=== PATIENT | female | born 1940 | race Caucasian/White ===

== ENCOUNTER 2017-05-27 11:10 | Inpatient (IN) ==
[2017-05-27 11:50] LABS: Basophils % 0.2 %; Eosinophils % 0.4 %; Hematocrit 30.4 % (35.3-44.9); Hemoglobin 9.6 g/dL (11.5-15.4); Immature Granulocytes % 0.7 % (0-4); Lymphocytes # 1.1 K/mcL (0.6-4.6); Lymphocytes % 19.3 %; Mean Corpuscular HGB Conc 31.6 g/dL (31.6-35.5); Mean Corpuscular Hemoglobin 30.5 pg (28.0-33.3); Mean Corpuscular Volume 96.5 fL (83.0-100.0); Mean Platelet Volume 10.2 fL (9.4-12.4); Monocytes # 0.4 K/mcL (0.0-1.3); Monocytes % 7.2 %; Platelet Count 196 K/mcL (140-400); Red Blood Count 3.15 M/mcL (3.82-4.97); Red Cell Distribution Width 15.5 % (11.5-14.5); Segmented Neutrophils % 72.2 %
[2017-05-27 11:59] LABS: INR 1.2; Prothrombin Time 13.1 Seconds (9.4-12.1)
[2017-05-27 12:03] LABS: BUN/Creatinine Ratio 21 (6-26); Blood Urea Nitrogen 17 mg/dL (7-20); Calcium 8.9 mg/dL (8.6-10.8); Carbon Dioxide 30 mEq/L (19-29); Chloride 98 mEq/L (98-109); Glucose 452 mg/dL (70-99); Osmolality,Calculated 299 (280-300); Potassium 4.1 mEq/L (3.5-4.5); Sodium 134 mEq/L (136-145); eGFR For African Americans > 60 (> 60); eGFR For Non-African Americans > 60 (> 60)
[2017-05-27] MEDS ORDERED: Furosemide 20 MG/2 ML VIAL IVP ONE (12:30)
[2017-05-27] MEDS ORDERED: Insulin Regular, Human 100 UNIT/ML SQ ONE (12:30)
[2017-05-27] MEDS ORDERED: Aspirin 81 MG TAB.CHEW PO STA (13:30)
--- NOTE | 2017-05-27 13:33 | Emergency Department Note ---
Disposition Clinical Impression: Dyspnea, Pulmonary edema, Pleural effusion, Hyperglycemia, Elevated troponin Disposition: Admitted As Inpatient Condition: Fair Time of Disposition: 14:11 SOB HPI - General Chief Complaint: ED Shortness of Breath/Dyspnea Stated Complaint: sherry Time Seen by Provider: 05/27/17 11:26 Source: patient, other Limitations: no limitations Nursing Notes Reviewed: Yes Vital Signs Reviewed: Yes - History of Present Illness Patient complains of progressive dyspnea over the past 4-5 weeks. She was seen by her primary care physician in the outpatient setting and found to be hypoxic. Home oxygen was initiated and she was referred to pulmonary for consultation. Patient was a worsening orthopnea as well as exertional dyspnea. Denies any associated chest pain, tightness or discomfort. She has not worsening peripheral edema over the past week. She was seen by wound nurse today and he referred her to the emergency department for aggressive cardiac workup and admission. Denies fevers or chills. No productive cough. No other subjective complaints. Pt Subjective Complaint: shortness of breath Onset (ago): week(s) Context: recent illness Severity: moderate Consistency/Duration: intermittent Improves with: nothing Worsens with: lying flat, exertion Associated symptoms: Denies: chest pain, fever, cough Treatment prior to arrival: none Cough present: No Sputum production: No Sputum Amount: None - Related Data Home Medications Medication Instructions Recorded Confirmed Albuterol Sulfate [Albuterol 2 puff IH Q6H PRN 05/27/17 05/27/17 Inhaler] Budesonide/Formoterol 80/4.5 2 puff IH BID 05/27/17 05/27/17 [Symbicort 80/4.5] Ranitidine HCl [Heartburn Relief] 150 mg PO BID 05/27/17 05/27/17 Allergies Allergy/AdvReac Type Severity Reaction Status Date / Time No Known Allergies Allergy Verified 05/27/17 11:50 All systems ED: reviewed and negative except as stated. Constitutional: Reports: weakness. Denies: fever, chills Cardiovascular: Reports: edema. Denies: chest pain, palpitations Respiratory: Reports: dyspnea. Denies: hemoptysis, sputum production Past Medical History - Past Medical History Attestation: Yes The following information was validated with the patient. 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 - General Limitations: no limitations General appearance: alert - Head Head exam: atraumatic, normocephalic - Eye Eye exam: Present: normal appearance, PERRL - ENT ENT exam: normal exam - Neck Neck exam: Present: normal inspection, full ROM - Chest Chest inspection: Present: normal inspection, symmetric chest wall rise. Absent : tenderness - Respiratory Respiratory exam: Present: other (Breath sounds are diminished in both bases with inspiratory rales heard bilaterally). Absent: normal lung sounds bilaterally - Cardiovascular Cardiovascular exam: Present: regular rate - Abdominal Exam Abdominal exam: Present: soft, Non-Tender - Extremities Exam Extremities exam: Present: pedal edema - Expanded Lower Extremity Exam Ankle exam: Present: swelling Foot/toe exam: Present: swelling - Back Exam Back exam: Present: normal inspection. Absent: CVA tenderness (R), CVA tenderness (L) - Neurological Exam Neurological exam: Present: alert, oriented X3 - Psychiatric Psychiatric exam: Present: normal affect, normal mood - Skin Skin exam: Present: warm, dry Course Course Narrative: Patient presents with a new onset of pulmonary edema to just heart failure as well as new onset of hyperglycemia. She is given IV Lasix along with dose of insulin. Chest x-ray reveals bilateral pulmonary edema and pleural effusions. Moderate peripheral edema. Discussed with Dr. Joe who will admit and Dr. Schultz for cardiology consult Vital Signs Temperature 98.2 F 05/27/17 11:50 Pulse Rate 84 05/27/17 11:50 Respiratory Rate 26 05/27/17 11:50 Blood Pressure 115/70 05/27/17 11:50 O2 Sat by Pulse Oximetry 96 05/27/17 11:50 Temperature 98.2 F 05/27/17 11:50 Pulse Rate 87 05/27/17 14:25 Respiratory Rate 15 05/27/17 14:25 Blood Pressure 118/69 05/27/17 14:25 O2 Sat by Pulse Oximetry 94 05/27/17 14:25 Oxygen Delivery Oxygen Delivery Nasal Cannula Shortness of Breath/Dyspnea - Lab Data Result diagrams: 05/27/17 11:43 05/27/17 11:43 Lab Results 05/27/17 05/27/1717 Range/Units 11:43 11:43 11:43 WBC 5.6 (4.3-11.1) K/mcL RBC 3.15 L (3.82-4.97) M/mcL Hgb 9.6 L (11.5-15.4) g/dL Hct 30.4 L (35.3-44.9) % MCV 96.5 (83.0-100.0) fL MCH 30.5 (28.0-33.3) pg MCHC 31.6 (31.6-35.5) g/dL RDW 15.5 H (11.5-14.5) % Plt Count 196 (140-400) K/mcL MPV 10.2 (9.4-12.4) fL Immature Gran % 0.7 (0-4) % Seg Neutrophils % 72.2 % Lymphocytes % 19.3 % Monocytes % 7.2 % Eosinophils % 0.4 % Basophils % 0.2 % Neutrophils # 4.0 (1.6-8.9) K/mcL Lymphocytes # 1.1 (0.6-4.6) K/mcL Monocytes # 0.4 (0.0-1.3) K/mcL Eosinophils # 0.0 (0.0-0.6) K/mcL Basophils # 0.0 (0.0-0.2) K/mcL PT 13.1 H (9.4-12.1) Seconds INR 1.2 APTT 25.0 L (26.0-36.0) Seconds Sodium 134 L (136-145) mEq/L Potassium 4.1 (3.5-4.5) mEq/L Chloride 98 (98-109) mEq/L Carbon Dioxide 30 H (19-29) mEq/L BUN 17 (7-20) mg/dL Creatinine 0.82 (0.57-1.11) mg/dL Est GFR ( Amer) > 60 (> 60) Est GFR (Non-Af Amer) > 60 (> 60) BUN/Creatinine Ratio 21 (6-26) Glucose 452 H (70-99) mg/dL Calculated Osmolality 299 (280-300) Calcium 8.9 (8.6-10.8) mg/dL Troponin I (0-0.03) ng/mL B-Natriuretic Peptide (0-100) pg/mL 05/27/17 05/27/17 Range/Units 11:43 11:43 WBC (4.3-11.1) K/mcL RBC (3.82-4.97) M/mcL Hgb (11.5-15.4) g/dL Hct (35.3-44.9) % MCV (83.0-100.0) fL MCH (28.0-33.3) pg MCHC (31.6-35.5) g/dL RDW (11.5-14.5) % Plt Count (140-400) K/mcL MPV (9.4-12.4) fL Immature Gran % (0-4) % Seg Neutrophils % % Lymphocytes % % Monocytes % % Eosinophils % % Basophils % % Neutrophils # (1.6-8.9) K/mcL Lymphocytes # (0.6-4.6) K/mcL Monocytes # (0.0-1.3) K/mcL Eosinophils # (0.0-0.6) K/mcL Basophils # (0.0-0.2) K/mcL PT (9.4-12.1) Seconds INR APTT (26.0-36.0) Seconds Sodium (136-145) mEq/L Potassium (3.5-4.5) mEq/L Chloride (98-109) mEq/L Carbon Dioxide (19-29) mEq/L BUN (7-20) mg/dL Creatinine (0.57-1.11) mg/dL Est GFR ( Amer) (> 60) Est GFR (Non-Af Amer) (> 60) BUN/Creatinine Ratio (6-26) Glucose (70-99) mg/dL Calculated Osmolality (280-300) Calcium (8.6-10.8) mg/dL Troponin I 0.11 H* (0-0.03) ng/mL B-Natriuretic Peptide 588 H (0-100) pg/mL - EKG Data EKG attestation: Yes I reviewed and interpreted this EKG. EKG results narrative: Normal sinus rhythm with a rate of 84. Electrical indices within normal limits. Lobe EKG. [place] is normal. Slow R-wave progression across the precordium. No acute ST or T-wave abnormalities noted. Attestation Statement - Attestation Attestation: The high probability of a clinically significant, sudden or life threatening deterioration of the [cardiopulmonary] system(s) required my full and direct attention, intervention and personal management. The aggregate critical care time was [32] minutes. This time is in addition to time spent performing reported procedures but includes the following: [x] Data Review and interpretation [x] Patient assessment and monitoring of vital signs [x] Documentation [x] Medication orders and management
[2017-05-27] MEDS ORDERED: Naloxone 0.4 MG/ML INJ IVP PRN (15:17)
--- NOTE | 2017-05-27 15:31 | Internal Med History&Physical ---
Date of Encounter: 05/27/17 Time of Encounter: 15:31 Assessment and Plan (1) Acute systolic congestive heart failure Current visit: Yes Status: Acute 77/female Admitted for worsening shortness of breath from the pulmonology office. ER preferred this as a COPD is admission. Patient has a raised JVP, pedal edema, S3 positive, and bilateral coarse crepitations. Echocardiogram was done area Estimated ejection fraction 25-30%. She has a moderate mitral regurgitation. Patient was evaluated by Dr. Schultz Patient has acute decompensated systolic congestive heart failure. Plan: Admit as inpatient. Cardiac diet/diabetic diet Cycle troponin. IV diuresis: Lasix 40 mg every 8 hours as per recommendation by Dr. Schultz Strict intake output. BiPAP as needed in the night Aspirin/Lipitor/lisinopril/heparin drip/Lasix as mentioned above. Nothing by mouth from midnight. Possible cardiac catheter tomorrow morning. (2) Pulmonary edema Current visit: Yes Status: Acute Please see above Qualifiers: Chronicity: acute Qualified Code(s): J81.0 - Acute pulmonary edema (3) Pleural effusion Current visit: Yes Status: Acute Patient is a bilateral pleural effusion right more than left. This is likely secondary to the congestive heart failure. (4) Hyperglycemia Current visit: Yes Status: Acute This is a new finding that patient has a random blood sugar of more than 400. This is a diagnostic for diabetes. We will give her low-dose correction insulin. (5) Elevated troponin Current visit: Yes Status: Acute Her troponin is likely secondary to demand ischemia/acute systolic congestive heart failure. Patient is scheduled for cardiac catheter tomorrow. (6) DVT prophylaxis Current visit: Yes Status: Acute Heparin drip Medical decision-making: This patient has a moderate to severe risk of worsening in spite of being on appropriate medication due to the underlying complex medical condition. Internal Medicine - H&P: HPI Chief complaint: Shortness of breath Admitted From: Emergency Dept Plans for Post Hospital Care: Home History of present illness: PCP: Dr. Barbra Juarez Brief past medical history: COPD, hypertension. Patient is not keen to see Drs. History of present medical illness: This patient has a ongoing symptoms of shortness of breath for past 4 weeks. As per the family members, patient cannot lay down flat. Patient has worsening shortness of breath in the past 1 week which is progressively getting complicated to the extent patient cannot walk even 3-5 steps. In view of these worsening symptoms patient's family was concerned and they made appointment with the primary care.patient was evaluated by her primary care doctor and she referred to interstate bus driver for further evaluation of the shortness of breath. Patient went to interstate bus [facility] office this morning as per the recommendation of the primary care provider. At interstate bus [facility] office patient was short of breath to the extent that she was not able to lay down flat. This was the reason interstate bus driver referred patient to emergency room for further management. In the emergency room patient was examined by ER physician. X-ray was done. Basic labs were done. Noted that troponin was elevated. Reason for admission: Possible acute CHF systolic/elevated troponin likely secondary to CHF exacerbation/severe coronary artery disease. Family history: Noncontributory Past Med Surg Social Fam HX - Past Medical History Medical history: arthritis, CHF, COPD, diabetes Psychiatric history: no psych history - Social History Smoking Status: Never smoker Smokeless Tobacco Status: No Alcohol use: none Drug use: none Internal Medicine - H&P: Meds Albuterol Sulfate [Albuterol Inhaler] 2 puff IH Q6H PRN 05/27/17 [History] Budesonide/Formoterol 80/4.5 [Symbicort 80/4.5] 2 puff IH BID 05/27/17 [History ] Ranitidine HCl [Heartburn Relief] 150 mg PO BID 05/27/17 [History] 3 Allergy/AdvReac Type Severity Reaction Status Date / Time No Known Allergies Allergy Verified 05/27/17 11:50 All Systems PM: A 10-system review of systems was performed and is negative for pertinent findings except as documented above in the HPI. - Constitutional Constitutional: no chills, no fever(s), no night sweats - EENT Eyes: no change in vision, no discharge, no pain, no photophobia Ears: no ear discharge, no ear pain, no tinnitus Nose, mouth and throat: no dysphagia, no nasal discharge, no neck pain, no sore throat - Cardiovascular Cardiovascular ROS IM: diaphoresis, dyspnea, lightheadedness, paroxysmal nocturnal dyspnea, no chest pain, no palpitations, no syncope - Respiratory Respiratory: cough, dyspnea, wheezing, snoring, change in phlegm color, no excessive phlegm production - Gastrointestinal Gastrointestinal: no abdominal pain, no diarrhea, no hematemesis, no hematochezia, no melena, no nausea, no vomiting - Genitourinary Genitourinary: no change in urinary stream, no dysuria, no flank pain, no hematuria - Musculoskeletal Musculoskeletal ROS IM: no numbness, no tingling - Integumentary Integumentary IM: no rash, no unusual bruising - Neurological Neurological ROS: no confusion, no convulsions, no focal weakness, no numbness, no tingling, no tremor(s) - Hematologic/Lymphatic Hematologic/Lymphatic: no easy bruising - Constitutional Vitals: Temp Pulse Resp BP Pulse Ox 98.2 F 87 15 118/69 94 05/27/17 11:50 05/27/17 14:25 05/27/17 14:25 05/27/17 14:25 05/27/17 14:25 General appearance: Present: mild distress, A&O X 3, pleasant, answers questions appropriately - Head Head exam: Present: atraumatic, normocephalic - Eye Eye exam: Present: PERRL, conjuntiva pink, sclera anicteric Pupils: Present: PERRL - Neck Neck exam general surgery: Present: supple, trachea midline. Absent: lymphadenopathy - Respiratory Respiratory exam: Present: accessory muscle use, CTAB, rales, wheezes. Absent: rhonchi - Cardiovascular Cardiovascular exam: Present: RRR, +S1, +S2. Absent: diastolic murmur, gallop, rubs, systolic murmur - GI/Abdominal GI/Abdominal exam: Present: normal bowel sounds, soft, no peritoneal signs. Absent: distended, tenderness - Extremities Exam Extremities exam: Present: warm, radial pulses palpable and symmetrical. Absent : calf tenderness, cyanotic, pedal edema - Neurological Exam Neurological exam: Present: CN II-XII intact, oriented X3, no focal deficits. Absent: pronater drift, facial droop, speech deficit - Skin Skin exam: Present: dry, intact Internal Med - H&P Results - Labs CBC & Chem 7: 05/27/17 11:43 05/27/17 11:43
[2017-05-27] MEDS ORDERED: Heparin 25,000 UNIT/500 ML D5W 25,000 UNIT/500 ML MLS IVC SCH (17:45)
[2017-05-27] MEDS ORDERED: D5% in Water 1,000 ML IVC PRN (18:09)
[2017-05-27] MEDS ORDERED: Dextrose Gel 15 GM PO PRN ×2 (18:09)
[2017-05-27] MEDS ORDERED: *HR* Dextrose 50 % in Water (Syg) 50 ML SYRINGE IVP PRN (18:09)
[2017-05-27] MEDS ORDERED: Furosemide 40 MG/4 ML VIAL ONE (20:52)
[2017-05-27] MEDS ORDERED: Furosemide 20 MG/2 ML VIAL IVP SCH (21:00)
[2017-05-27] MEDS: Furosemide 40 MG/4 ML VIAL IVP SCH (21:02)
[2017-05-27 22:19] LABS: Hemoglobin A1C 10.9 %
[2017-05-28] MEDS: traZODone 50 MG TABLET PO PRN (00:59)
[2017-05-28 04:31] LABS: Basophils % 0.4 %; Eosinophils % 0.2 %; Hemoglobin 8.8 g/dL (11.5-15.4); Immature Granulocytes % 0.4 % (0-4); Lymphocytes # 1.2 K/mcL (0.6-4.6); Mean Corpuscular HGB Conc 31.4 g/dL (31.6-35.5); Mean Corpuscular Hemoglobin 30.3 pg (28.0-33.3); Mean Corpuscular Volume 96.6 fL (83.0-100.0); Mean Platelet Volume 10.5 fL (9.4-12.4); Monocytes # 0.4 K/mcL (0.0-1.3); Monocytes % 7.5 %; Neutrophils # 3.6 K/mcL (1.6-8.9); Platelet Count 184 K/mcL (140-400); Red Cell Distribution Width 15.6 % (11.5-14.5); Segmented Neutrophils % 68.5 %
[2017-05-28 04:34] LABS: INR 1.2; Prothrombin Time 13.2 Seconds (9.4-12.1)
[2017-05-28 04:37] LABS: Activated Partial Thrombo Time 21.9 Seconds (26.0-36.0)
[2017-05-28 04:47] LABS: Alanine Aminotransferase 21 Units/L (0-55); Albumin 2.6 g/dL (3.5-5.0); Albumin/Globulin Ratio 0.8 (1.1-2.2); Alkaline Phosphatase 47 Units/L (38-126); Aspartate Amino Transferase 12 Units/L (5-34); BUN/Creatinine Ratio 19 (6-26); Bilirubin,Total 1.7 mg/dL (0.2-1.2); Blood Urea Nitrogen 15 mg/dL (7-20); Calcium 8.3 mg/dL (8.6-10.8); Carbon Dioxide 26 mEq/L (19-29); Chloride 98 mEq/L (98-109); Chol/HDL Ratio 6.8 (0-4.9); Cholesterol 205 mg/dL (< 200); Globulin 3.3 g/dL (2.4-3.5); Glucose 337 mg/dL (70-99); HDL Cholesterol 30 mg/dL (40-59); LDL Cholesterol,Calculated 141 mg/dL (0-99); Magnesium 1.7 mg/dL (1.6-2.6); Osmolality,Calculated 292 (280-300); Phosphorous 3.9 mg/dL (2.3-4.7); Potassium 3.8 mEq/L (3.5-4.5); Sodium 134 mEq/L (136-145); Total Protein 5.9 g/dL (6.0-8.3); Triglycerides 169 mg/dL (< 150); eGFR For African Americans > 60 (> 60); eGFR For Non-African Americans > 60 (> 60)
[2017-05-28] MEDS ORDERED: clonazePAM 0.5 MG TABLET PO ONE (05:47)
[2017-05-28] MEDS: Insulin LISPRO 300 UNITS/3 ML VIAL SQ SCH ×4 (09:05→21:17)
[2017-05-28] MEDS: Furosemide 40 MG/4 ML VIAL IVP SCH ×3 (09:05→23:30)
[2017-05-28] MEDS: Aspirin Enteric Coated 81 MG Tablet PO SCH (09:05)
--- NOTE | 2017-05-28 10:04 | Cardiology Consult Note ---
Date of Encounter: 05/28/17 Time of Encounter: 10:02 Assessment and Plan (1) Acute systolic congestive heart failure Current Visit: Yes Status: Acute Acute decompensated congestive heart failure with evidence of hypervolemia and mild elevation of troponins with a peak of 0.11 adynamic. Echo as above with 30 % ejection fraction moderate severe mitral regurg possibly ischemic in nature with a posterior directed jet. Gentle diuresis at the current time in preparation for a left heart catheter. Risk benefits and alternatives were discussed with the patient and family members and they agreed to proceed. This will depend on when she is able to lay flat as she continues to diuresis. Patient was noted to have a drop in her hemoglobin almost over a gram therefore heparin was stopped overnight. We will obtain a CBC prior to proceeding with a left heart catheter. We will attempt to limit her flat today to evaluate her ability to proceed with the left heart catheter Discussion w patient/family: The assessment and plan as outlined above was discussed with the patient and/or family members who expressed understanding and agreement. All questions were answered. Thank you for involving us in the care of your patient. Please call with any questions. History of Present Illness Consult date: 05/28/17 Requesting physician: Shahzad Joe Consult reason: SOB Chief complaint: SOB History of present illness: Ms. New is a 77 year old female with history of diabetes, obesity, complains of shortness of breath and presented to the [facility]. She states her shortness of breath has been ongoing for the last 4 weeks and progressively worsening. She has complained also of orthopnea, PND no chest pain, presyncope or syncope. An echocardiogram was obtained early during this admission revealing an ejection fraction of 30% with severe mitral regurg. Chest x-ray reveals pulmonary edema with moderate bilateral pleural effusions. Past Med Surg Social Fam HX - Past Medical History Medical history: arthritis, CHF, COPD, diabetes Psychiatric history: no psych history - Social History Smoking Status: Never smoker Smokeless Tobacco Status: No Alcohol use: none Drug use: none Medications and Allergies Albuterol Sulfate [Albuterol Inhaler] 2 puff IH Q6H PRN 05/27/17 [History] Budesonide/Formoterol 80/4.5 [Symbicort 80/4.5] 2 puff IH BID 05/27/17 [History ] Ranitidine HCl [Heartburn Relief] 150 mg PO BID 05/27/17 [History] 3 Allergy/AdvReac Type Severity Reaction Status Date / Time No Known Allergies Allergy Verified 05/27/17 11:50 All Systems Review: A 10-system review of systems was performed and is negative for pertinent findings except as documented above in the HPI. Physical Examination Vital Signs, Last 4 Hours Temp Pulse Resp BP Pulse Ox 05/28/17 08:07 98 F 88 16 135/72 90 General: Conversant, No Apparent Distress HEENT: Atraumatic, Normocephaly, Mucus Membranes Moist Neck: No JVD (Elevated JVD), Normal carotid pulses Cardiac: Reg Rate and Rhythm, Normal S1 and S2, No Murmur Lungs: Normal Breath Sounds, Other (Bibasilar crackles, decreased air entry bilaterally) Neuro: Alert and responsive, No focal deficits noted Abdomen: Soft, Non-Tender Skin: No rashes noted on visualized skin Musculoskeletal: No Chest Wall Tenderness Extremities: No Clubbing, No Cyanosis, No Edema, Normal Pulses, Other ( Bilateral lower extremity edema) Results 05/28/17 03:50 05/28/17 03:50 Lab Results 05/27/17 05/27/17 05/28/17 16:28 21:48 00:44 WBC Hgb Hct Plt Count INR APTT 37.2 H Sodium Potassium Chloride Carbon Dioxide BUN Creatinine Glucose Calcium Magnesium Total Bilirubin AST ALT Alkaline Phosphatase Troponin I 0.12 H* 0.11 H* B-Natriuretic Peptide 05/28/17 05/28/17 05/28/17 03:50 03:50 03:50 WBC 5.3 Hgb 8.8 L Hct 28.0 L Plt Count 184 INR 1.2 APTT 21.9 L Sodium Potassium Chloride Carbon Dioxide BUN Creatinine Glucose Calcium Magnesium Total Bilirubin AST ALT Alkaline Phosphatase Troponin I 0.11 H* B-Natriuretic Peptide 05/28/17 05/28/17 03:50 03:50 WBC Hgb Hct Plt Count INR APTT Sodium 134 L Potassium 3.8 Chloride 98 Carbon Dioxide 26 BUN 15 Creatinine 0.77 Glucose 337 H Calcium 8.3 L Magnesium 1.7 Total Bilirubin 1.7 H AST 12 ALT 21 Alkaline Phosphatase 47 Troponin I B-Natriuretic Peptide 662 H Consult Discharge Plan - Plan Referrals: Barbra Juarez MD [Primary Care Provider] - Prince Wolf MD [Family Provider] -
[2017-05-28 10:41] LABS: Hematocrit 28.5 % (35.3-44.9); Mean Corpuscular HGB Conc 31.6 g/dL (31.6-35.5); Mean Corpuscular Hemoglobin 30.4 pg (28.0-33.3); Mean Corpuscular Volume 96.3 fL (83.0-100.0); Mean Platelet Volume 10.2 fL (9.4-12.4); Platelet Count 192 K/mcL (140-400); Red Blood Count 2.96 M/mcL (3.82-4.97); Red Cell Distribution Width 15.6 % (11.5-14.5)
[2017-05-28] MEDS ORDERED: *HR* LORazepam 1 MG TABLET PO PRN (12:11)
[2017-05-28] MEDS ORDERED: Metoprolol XL (24 HR) Succ 25 MG TAB.ER.24H PO SCH (13:45)
--- NOTE | 2017-05-28 13:47 | Event Note ---
Date of Encounter: 05/28/17 Time of Encounter: 13:45 - Cardiology Event Note Pt extremely anxious, states unable to lie flat. Will give Ativan PRN for anxiety, continue diuresis, NPO after midnight for possible LHC tomorrow. Also now in A-Fib RVR on telemetry. Obtain 12 lead EKG. Start heparin gtt. Start PO BB Toprol XL 25mg daily. HR 110-120s. Will address custodial anticoagulation prior to discharge.
[2017-05-28] MEDS ORDERED: *HR* Heparin 5,000 UNIT/ML VIAL IVP PRN ×2 (13:48)
[2017-05-28] MEDS ORDERED: *HR* Heparin 5,000 UNIT/ML VIAL IVP ONE (13:48)
[2017-05-28] MEDS ORDERED: Amiodarone Premix 150 MG/100 ML BAG IVPB ONE (13:57)
[2017-05-28] MEDS ORDERED: Amiodarone Premix 360 MG/200 ML BAG IVC ONE (13:57)
--- NOTE | 2017-05-28 15:55 | Internal Med Progress Note ---
Date of Encounter: 05/28/17 Time of Encounter: 10:00 - Assessment and plan (1) Acute on chronic respiratory failure with hypoxia Current Visit: Yes Status: Acute Assessment and plan: Due to acute congestive heart failure. Continue O2 supplementation. Wean FiO2 as tolerated. (2) Acute systolic congestive heart failure Current Visit: Yes Status: Acute Assessment and plan: Patient with acute congestive heart failure with bilateral pleural effusions. Continue IV Lasix. Patient has had good urine output but remains dyspneic and hypoxic. We will continue to monitor input and output. Monitor daily weights. Cardiology following. Plan for left heart catheterization when patient is able to lie down flat. High risk for complications (3) Diabetes mellitus type 2 in obese Current Visit: Yes Status: Chronic Assessment and plan: A1c is 10.9%. This is a new diagnosis for the patient. We will place her on insulin while she is in the hospital. Diabetic diet when patient is able to eat. Monitor blood sugars closely. We will adjust insulin regimen according to her response (4) Pleural effusion Current Visit: Yes Status: Acute Assessment and plan: Patient with bilateral pleural effusion. Most likely due to heart failure. This would also be contributing to her respiratory failure. We will continue IV diuresis. (5) Elevated troponin Current Visit: Yes Status: Acute Assessment and plan: Stable troponin elevation. Plan for left heart catheterization later today. (6) Hyperlipidemia Current Visit: Yes Status: Chronic Assessment and plan: Uncontrolled. Patient has elevated LDL and low HDL. Has been started on Lipitor. Will continue. Qualifiers: Hyperlipidemia type: mixed hyperlipidemia Qualified Code(s): E78.2 - Mixed hyperlipidemia - Subjective Interval history: Patient is awake and alert. Lying in bed. Appears comfortable. Shortness of breath is improving. She denies any chest pain at this time. Has been scheduled for cardiac catheterization later today but patient has to be able to lie down flat to undergo this procedure. - Constitutional Vitals: Temp Pulse Resp BP Pulse Ox 97.6 F 121 14 117/103 88 05/28/17 11:58 05/28/17 11:58 05/28/17 11:58 05/28/17 11:58 05/28/17 11:58 General appearance: Present: cooperative, mild distress, A&O X 3, pleasant, obese, answers questions appropriately - Neck Neck exam general surgery: Present: supple, trachea midline. Absent: lymphadenopathy - Respiratory Respiratory exam: Present: decreased breath sounds (At both bases), prolonged expiratory phase. Absent: accessory muscle use, rales, rhonchi, wheezes - Cardiovascular Cardiovascular exam: Present: RRR, +S1, +S2. Absent: diastolic murmur, gallop, rubs, systolic murmur - GI/Abdominal GI/Abdominal exam: Present: normal bowel sounds, soft, no peritoneal signs. Absent: distended, tenderness - Extremities Exam Extremities exam: Present: warm, radial pulses palpable and symmetrical. Absent : calf tenderness, cyanotic, pedal edema - Neurological Exam Neurological exam: Present: alert, CN II-XII intact, oriented X3, no focal deficits. Absent: facial droop, speech deficit Internal Medicine: Result - Labs CBC & Chem 7: 05/28/17 10:26 05/28/17 03:50 Labs: Short CBC 05/28/17 05/28/17 Range/Units 03:50 10:26 WBC 5.3 5.1 (4.3-11.1) K/mcL Hgb 8.8 L 9.0 L (11.5-15.4) g/dL Hct 28.0 L 28.5 L (35.3-44.9) % Plt Count 184 192 (140-400) K/mcL Neutrophils # 3.6 (1.6-8.9) K/mcL BMP 05/28/17 03:50 Sodium 134 L Potassium 3.8 Chloride 98 Carbon Dioxide 26 BUN 15 Creatinine 0.77 Glucose 337 H Calcium 8.3 L Cardiac Enzymes 05/27/17 05/27/17 05/28/17 Range/Units 16:28 21:48 03:50 Troponin I 0.12 H* 0.11 H* 0.11 H* (0-0.03) ng/mL Liver Function 05/28/17 Range/Units 03:50 Total Bilirubin 1.7 H (0.2-1.2) mg/dL AST 12 (5-34) Units/L ALT 21 (0-55) Units/L Alkaline Phosphatase 47 (38-126) Units/L Albumin 2.6 L (3.5-5.0) g/dL - ABG Interpretation ABG results: PT/INR, D-dimer PT 13.2 Seconds (9.4-12.1) H 05/28/17 03:50 - Impressions Impressions Echocardiogram 05/27/17 15:23 Impressions: LVEF 30%. Mildly dilated left ventricle. Severe global left ventricular systolic dysfunction. Severe left ventricular diastolic dysfunction. Normal right ventricular structure and function. Severely dilated left atrium. Severe mitral regurgitation. Mild tricuspid regurgitation. Mild pulmonary hypertension. Left Ventricular Wall Motion: Rest Echo Findings The apex, apical inferior, mid inferior, basal inferior, apical anterior, mid anterior, basal anterior, apical septal, mid inferior septal, basal inferior septal, apical lateral, mid anterior lateral, basal anterior lateral, mid anterior septal, mid inferior lateral, basal anterior septal and basal inferior lateral savage were hypokinetic. Findings: Study Quality * Technically adequate exam. ECG Findings * Normal sinus rhythm. Left Ventricle * LVEF 30%. * Mildly dilated left ventricle. * Severe global left ventricular systolic dysfunction. * Severe left ventricular diastolic dysfunction. Right Ventricle * Normal right ventricular structure and function. Left Atrium * Severely dilated left atrium. Right Atrium * Mildly dilated right atrium. Interatrial Septum * Interatrial septum not well evaluated. Aortic Valve * Trileaflet aortic valve. * Mildly calcified aortic valve leaflets. * No aortic regurgitation. * No aortic stenosis. Mitral Valve * Mild mitral annular calcification * Mildly thickened mitral valve leaflets. * Severe mitral regurgitation. * No mitral stenosis. Tricuspid Valve * Normal tricuspid valve structure. * Mild tricuspid regurgitation. * Mild pulmonary hypertension. Pulmonic Valve * Pulmonic valve not well visualized. Aorta * Normally sized aortic root. Pericardium * The pericardium appears normal. IVC * Normal IVC dimensions and inspiratory collapse. Pulmonary Artery * Normal visualized portions of the main pulmonary artery. Chest X-Ray 05/28/17 14:26 IMPRESSION: Lungs are slightly better expanded than on the prior study, however there is probably no substantial change in bilateral pleural effusions and edema. Basilar opacities likely a combination of fluid and atelectasis although superimposed airspace disease not excluded. D/ / Richard Jaimes / Richard Jaimes Interpreting Provider: Richard Jaimes Consult Discharge Plan - Plan Referrals: Barbra Juarez MD [Primary Care Provider] - Prince Wolf MD [Family Provider] -
[2017-05-28] MEDS: Heparin 25,000 UNIT/500 ML D5W 25,000 UNIT/500 ML MLS IVC SCH (16:08)
[2017-05-28 17:00] LABS: Hematocrit 30.8 % (35.3-44.9); Hemoglobin 9.6 g/dL (11.5-15.4); Mean Corpuscular HGB Conc 31.2 g/dL (31.6-35.5); Mean Corpuscular Hemoglobin 30.7 pg (28.0-33.3); Mean Corpuscular Volume 98.4 fL (83.0-100.0); Mean Platelet Volume 10.2 fL (9.4-12.4); Platelet Count 195 K/mcL (140-400); Red Blood Count 3.13 M/mcL (3.82-4.97); Red Cell Distribution Width 15.8 % (11.5-14.5)
[2017-05-28 17:01] LABS: Hemoglobin 9.5 g/dL (11.5-15.4)
[2017-05-28] MEDS ORDERED: Amiodarone Premix 360 MG/200 ML BAG IVC SCH (20:00)
[2017-05-28 20:39] LABS: ABG Base Excess 9 mEq/L (-2 to 3); ABG HCO3 34 mEq/L (21-27); ABG Oxygen Saturation 90 % (95-98); ABG PCO2 47 mmHg (35-45); ABG PH 7.47 pH Units (7.32-7.45); ABG PO2 56 mmHg (85-104); ABG TCO2 35 mEq/L (20-26)
[2017-05-28] MEDS: *HR* LORazepam 1 MG TABLET PO PRN (20:48)
[2017-05-28] MEDS: Budesonide/Formoterol 80/4.5 MDI IH SCH (21:21)
[2017-05-28] MEDS ORDERED: Acetaminophen 325 MG TABLET PO ONE (23:16)
[2017-05-29] MEDS ORDERED: *HR* LORazepam 2 MG/ML VIAL IVP ONE (01:58)
[2017-05-29 08:01] LABS: Basophils % 0.3 %; Eosinophils # 0.1 K/mcL (0.0-0.6); Eosinophils % 1.1 %; Hematocrit 28.2 % (35.3-44.9); Hemoglobin 8.8 g/dL (11.5-15.4); Immature Granulocytes % 0.4 % (0-4); Lymphocytes # 2.1 K/mcL (0.6-4.6); Lymphocytes % 30.1 %; Mean Corpuscular HGB Conc 31.2 g/dL (31.6-35.5); Mean Corpuscular Hemoglobin 30.4 pg (28.0-33.3); Mean Corpuscular Volume 97.6 fL (83.0-100.0); Mean Platelet Volume 10.1 fL (9.4-12.4); Monocytes # 0.7 K/mcL (0.0-1.3); Monocytes % 9.7 %; Neutrophils # 4.1 K/mcL (1.6-8.9); Platelet Count 197 K/mcL (140-400); Red Blood Count 2.89 M/mcL (3.82-4.97); Red Cell Distribution Width 16.3 % (11.5-14.5); Segmented Neutrophils % 58.4 %
[2017-05-29 08:08] LABS: BUN/Creatinine Ratio 21 (6-26); Blood Urea Nitrogen 22 mg/dL (7-20); Calcium 8.2 mg/dL (8.6-10.8); Carbon Dioxide 28 mEq/L (19-29); Chloride 97 mEq/L (98-109); Glucose 192 mg/dL (70-99); Osmolality,Calculated 287 (280-300); Potassium 3.9 mEq/L (3.5-4.5); Sodium 134 mEq/L (136-145); eGFR For African Americans > 60 (> 60); eGFR For Non-African Americans 51 (> 60)
[2017-05-29] MEDS: Budesonide/Formoterol 80/4.5 MDI IH SCH ×2 (08:11→20:13)
[2017-05-29] MEDS: Aspirin Enteric Coated 81 MG Tablet PO SCH (09:30)
[2017-05-29] MEDS: *HR* LORazepam 1 MG TABLET PO PRN ×3 (09:34→19:57)
[2017-05-29] MEDS: Furosemide 40 MG/4 ML VIAL IVP SCH (09:36)
[2017-05-29] MEDS: Insulin LISPRO 300 UNITS/3 ML VIAL SQ SCH ×4 (09:37→20:17)
--- NOTE | 2017-05-29 10:13 | Event Note ---
Date of Encounter: 05/29/17 Time of Encounter: 10:11 - Cardiology Event Note Pt now back in SR on amio gtt. Discussed with Dr. Elvis Colón--stop amio gtt and start PO 200mg BID. On heparin gtt for anticoagulation, HGB 8.8 today, chronic anemia, continue to monitor H&H. No active signs of bleeding. Warrants LHC for new CMP EF 30%. Pt was able to tolerate lying flat. R/B/A to LHC discussed. Pt agrees to proceed. LHC today. Further recommendations to follow.
[2017-05-29] MEDS: *HR* Amiodarone 200 MG TABLET PO SCH ×2 (10:18→19:58)
[2017-05-29] MEDS: Heparin 25,000 UNIT/500 ML D5W 25,000 UNIT/500 ML MLS IVC SCH (13:06)
[2017-05-29] MEDS ORDERED: *HR* Heparin 10,000 UNIT/10 ML VIAL ONE (14:36)
[2017-05-29] MEDS ORDERED: Nitroglycerin 1,000 MCG/10 ML VIAL IV ONE (14:36)
[2017-05-29] MEDS ORDERED: 0.9 % Sodium Chloride 1,000 ML ONE ×2 (14:36)
[2017-05-29] MEDS ORDERED: Ipratropium/Albuterol Neb 3 ML IH PRN (15:59)
--- NOTE | 2017-05-29 16:00 | Internal Med Progress Note ---
Date of Encounter: 05/29/17 Time of Encounter: 08:40 - Assessment and plan (1) Acute on chronic respiratory failure with hypoxia Current Visit: Yes Status: Acute Assessment and plan: Due to acute congestive heart failure. On Oxymask. At 10 L/m O2 supplementation. Awaiting factors likely include obstructive sleep apnea and COPD. High-risk for complications. (2) Acute systolic congestive heart failure Current Visit: Yes Status: Acute Assessment and plan: Will hold Lasix for now due to decreased urine output overnight. Patient has remained nothing by mouth and has not had any significant oral intake. Monitor renal function closely. BUN and creatinine are starting to rise up. Await cardiology input. Continue O2 supplementation (3) Diabetes mellitus type 2 in obese Current Visit: Yes Status: Chronic Assessment and plan: Blood sugars are much improved. We will continue to monitor blood sugars. Currently nothing by mouth for planned cardiac catheterization today. (4) Pleural effusion Current Visit: Yes Status: Acute (5) Elevated troponin Current Visit: Yes Status: Acute Assessment and plan: Cardiology has evaluated patient and recommended left heart catheterization. We will proceed with procedure this procedure as long as patient is able to lay flat today. (6) Hyperlipidemia Current Visit: Yes Status: Chronic Assessment and plan: Continue atorvastatin Qualifiers: Hyperlipidemia type: mixed hyperlipidemia Qualified Code(s): E78.2 - Mixed hyperlipidemia (7) COPD (chronic obstructive pulmonary disease) Current Visit: Yes Status: Chronic Assessment and plan: Patient with history of underlying COPD. Not in acute exacerbation at this time. We will place patient on bronchodilators as needed. Continue Symbicort. Qualifiers: COPD type: emphysema Emphysema type: panlobular Qualified Code(s): J43.1 - Panlobular emphysema - Subjective Interval history: Patient is lying in bed. Breathing through Oxymask. She appears more comfortable compared to yesterday. Less dyspneic. He denies any chest pain. No nausea or vomiting. No other complaints at this time. Has not made much urine overnight. Swelling in lower extremities has improved. - Constitutional Vitals: Temp Pulse Resp BP Pulse Ox 98.8 F 69 22 107/49 90 05/29/17 12:34 05/29/17 11:04 05/29/17 11:04 05/29/17 11:04 05/29/17 11:04 General appearance: Present: cooperative, mild distress, A&O X 3, pleasant, obese, answers questions appropriately - Neck Neck exam general surgery: Present: supple, trachea midline. Absent: lymphadenopathy - Respiratory Respiratory exam: Present: decreased breath sounds (At both bases with crackles) . Absent: accessory muscle use, rales, rhonchi, wheezes - Cardiovascular Cardiovascular exam: Present: RRR, +S1, +S2. Absent: diastolic murmur, gallop, rubs, systolic murmur - Extremities Exam Extremities exam: Present: pedal edema (Bilateral pitting pedal edema improving) , warm, radial pulses palpable and symmetrical. Absent: calf tenderness, cyanotic - Neurological Exam Neurological exam: Present: CN II-XII intact, oriented X3, no focal deficits. Absent: facial droop, speech deficit Internal Medicine: Result - Labs CBC & Chem 7: 05/29/17 07:48 05/29/17 07:48 Labs: Short CBC 05/28/17 05/28/17 05/29/17 Range/Units 16:28 16:28 07:48 WBC 6.8 7.0 (4.3-11.1) K/mcL Hgb 9.6 L 9.5 L 8.8 L (11.5-15.4) g/dL Hct 30.8 L 30.0 L 28.2 L (35.3-44.9) % Plt Count 195 197 (140-400) K/mcL Neutrophils # 4.1 (1.6-8.9) K/mcL BMP 05/29/17 07:48 Sodium 134 L Potassium 3.9 Chloride 97 L Carbon Dioxide 28 BUN 22 H Creatinine 1.06 Glucose 192 H Calcium 8.2 L Cardiac Enzymes 05/28/17 Range/Units 16:28 Troponin I 0.11 H* (0-0.03) ng/mL - ABG Interpretation ABG results: ABG ABG pH 7.47 pH Units (7.32-7.45) H 05/28/17 20:34 ABG pCO2 47 mmHg (35-45) H 05/28/17 20:34 ABG pO2 56 mmHg (85-104) L 05/28/17 20:34 ABG O2 Saturation 90 % (95-98) L 05/28/17 20:34 PT/INR, D-dimer PT 13.2 Seconds (9.4-12.1) H 05/28/17 03:50 Consult Discharge Plan - Plan Referrals: Barbra Juarez MD [Primary Care Provider] - 06/02/17 1:30 pm Prince Wolf MD [Family Provider] -
[2017-05-29 18:26] LABS: BUN/Creatinine Ratio 27 (6-26); Blood Urea Nitrogen 25 mg/dL (7-20); Calcium 8.3 mg/dL (8.6-10.8); Carbon Dioxide 27 mEq/L (19-29); Chloride 97 mEq/L (98-109); Glucose 164 mg/dL (70-99); Osmolality,Calculated 296 (280-300); Sodium 139 mEq/L (136-145); eGFR For African Americans > 60 (> 60); eGFR For Non-African Americans 59 (> 60)
[2017-05-29 18:32] LABS: Potassium 4.3 mEq/L (3.5-4.5)
[2017-05-29] MEDS: Nystatin POWDER 30 GM BOTTLE TP SCH (22:17)
[2017-05-30] MEDS ORDERED: *HR* Morphine 2 MG/ML SYRINGE IVP ONE (00:17)
[2017-05-30 00:40] LABS: Basophils % 0.1 %; Eosinophils # 0.1 K/mcL (0.0-0.6); Eosinophils % 0.7 %; Hematocrit 28.4 % (35.3-44.9); Hemoglobin 9.1 g/dL (11.5-15.4); Immature Granulocytes % 0.4 % (0-4); Lymphocytes # 1.6 K/mcL (0.6-4.6); Lymphocytes % 23.3 %; Mean Corpuscular Hemoglobin 30.8 pg (28.0-33.3); Mean Corpuscular Volume 96.3 fL (83.0-100.0); Mean Platelet Volume 9.9 fL (9.4-12.4); Monocytes # 0.7 K/mcL (0.0-1.3); Monocytes % 9.7 %; Neutrophils # 4.6 K/mcL (1.6-8.9); Platelet Count 206 K/mcL (140-400); Red Blood Count 2.95 M/mcL (3.82-4.97); Red Cell Distribution Width 16.3 % (11.5-14.5); Segmented Neutrophils % 65.8 %
[2017-05-30 00:52] LABS: BUN/Creatinine Ratio 27 (6-26); Blood Urea Nitrogen 26 mg/dL (7-20); Calcium 8.4 mg/dL (8.6-10.8); Carbon Dioxide 31 mEq/L (19-29); Chloride 95 mEq/L (98-109); Glucose 215 mg/dL (70-99); Osmolality,Calculated 291 (280-300); Potassium 3.6 mEq/L (3.5-4.5); Sodium 135 mEq/L (136-145); eGFR For African Americans > 60 (> 60); eGFR For Non-African Americans 57 (> 60)
[2017-05-30 01:06] LABS: Activated Partial Thrombo Time 114.4 Seconds (26.0-36.0)
[2017-05-30 01:07] LABS: Heparin anti-factor XA UFH 0.81 IU/mL (0.30-0.70)
[2017-05-30] MEDS ORDERED: *HR* LORazepam 2 MG/ML VIAL IVP ONE (01:21)
[2017-05-30] MEDS: Acetaminophen 325 MG TABLET PO PRN ×2 (06:49→14:39)
[2017-05-30] MEDS: *HR* LORazepam 1 MG TABLET PO PRN ×2 (08:10→14:38)
[2017-05-30] MEDS: *HR* Amiodarone 200 MG TABLET PO SCH ×2 (08:10→20:50)
[2017-05-30] MEDS: Aspirin Enteric Coated 81 MG Tablet PO SCH (08:10)
[2017-05-30] MEDS: Nystatin POWDER 30 GM BOTTLE TP SCH ×2 (08:10→20:50)
[2017-05-30] MEDS: Insulin LISPRO 300 UNITS/3 ML VIAL SQ SCH ×4 (08:11→20:50)
[2017-05-30] MEDS: Furosemide 40 MG/4 ML VIAL IVP SCH (09:11)
--- NOTE | 2017-05-30 10:42 | Nephrology Consult Note ---
Date of Encounter: 05/30/17 Time of Encounter: 09:20 Assessment and Plan (1) Oliguria Current Visit: Yes Status: Acute Nephrology was consulted d/t the declining UOP. I suspect she has cardiorenal syndrome and would recommend maximizing diuretics with addition of metolazone. I helped describe renal function to the family. I'll defer their concerns regarding cardiac intervention to Cardiology. Will add metolazone 2.5mg BID and monitor her hyperhyponatremia, which I suspect is hypervolemic in nature. While on the loop diuretics, she has demonstrated a mild metabolic alkalosis and minimal elevation of SCr, which would be expected from diuretics. Will check UA with microscopy, renal U/S, and dec Lisinopril d/t relative hypotension noted ( yesterday). Discussed with the Hospitalist and I also discussed with the Cardiology [employer]. Thank you for consulting the [facility] team. (2) CAITLYN (acute kidney injury) Current Visit: Yes Status: Acute See above (3) Dyspnea Current Visit: Yes Status: Acute See above Qualifiers: Qualified Code(s): R06.00 - Dyspnea, unspecified (4) Pulmonary edema Current Visit: Yes Status: Acute See above Qualifiers: Chronicity: acute Qualified Code(s): J81.0 - Acute pulmonary edema History of Present Illness - Reason for Consult Consult date: 05/30/17 Acute Kidney Injury Requesting physician: Leticia Carvalho - Chief Complaint Anasarca with inadequate UOP - History of Present Illness Quyen New is a very pleasant 77 y/o WF with a pmh of CHF with reduced LVEF of 30% who presented with edema and was placed on diuretics and seen by Cardiology. She was largely somnolent and unable to provide any meaningful history. Her daughters were present and provided most of the history. They wanted to know she was not be feed day after day (I deferred this to Cardiology) . 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 She was active in cleaning up until about 2 months ago, the daughters reported. She has never needed to see a wholesale parts salesperson in the past. She was going for a [facility] the last few days but it was delayed per family, but they said that they were awaiting information. Past Med Surg Social Fam HX - Past Medical History Medical history: arthritis, CHF, COPD, diabetes Psychiatric history: no psych history - Social History Smoking Status: Never smoker Smokeless Tobacco Status: No Alcohol use: none Drug use: none Medications and Allergies Albuterol Sulfate [Albuterol Inhaler] 2 puff IH Q6H PRN 05/27/17 [History] Budesonide/Formoterol 80/4.5 [Symbicort 80/4.5] 2 puff IH BID 05/27/17 [History ] Ranitidine HCl [Heartburn Relief] 150 mg PO BID 05/27/17 [History] 3 Allergy/AdvReac Type Severity Reaction Status Date / Time No Known Allergies Allergy Verified 05/27/17 11:50 Review of Systems ROS unobtainable: due to mental status Exam - Vital Signs Vital signs: Initial Vital Signs Temp Pulse Resp BP Pulse Ox 98.2 F 84 26 115/70 96 05/27/17 11:50 05/27/17 11:50 05/27/17 11:50 05/27/17 11:50 05/27/17 11:50 Vital Signs - Last 8 Hours Temp Pulse Resp BP Pulse Ox 05/30/17 07:21 99.8 F H 74 22 127/70 88 05/30/17 04:48 73 19 93 05/30/17 04:15 19 93 05/30/17 03:21 100.5 F H 72 19 114/58 85 Intake and Output 05/29/17 05/30/17 05/30/17 23:59 07:59 15:59 Intake Total 105 / 105 240 / 240 40 / 40 Output Total 250 / 250 250 / 250 20 / 20 Balance -145 / -145 -10 / -10 20 / 20 Intake: IV Fluids 105 / 105 240 / 240 Heparin 25,000 UNIT/500 ML D5W 105 / 105 240 / 240 25,000 unit In 500 ml @ 10 UNIT /KG/HR 20.82 mls/hr IVC .Q24H [facility] Rx#:[id number] Oral 40 / 40 Output: Urine 100 / 100 Catheter 250 / 250 150 / 150 20 / 20 Other: Weight 86.7 kg Blood Glucose* 232 208 Patient Weight 05/30/17 23:59 Weight 86.7 kg - General Appearance General appearance: cachectic, chronically ill, fatigue, frail EENT: mucous membranes moist Neck: supple Respiratory: clear Cardiology: edema, normal S1, normal S2 Gastrointestinal: normoactive bowel sounds, no tenderness Integumentary: warm and dry Neurologic: no focal deficit, no asterixis Musculoskeletal: no cyanosis, no clubbing Psychiatric: mood/affect appropriate, cooperative Results - Lab Results 05/30/17 00:29 05/30/17 00:29 Most recent lab results ABG pH 7.47 pH Units (7.32-7.45) H 05/28/17 20:34 ABG pCO2 47 mmHg (35-45) H 05/28/17 20:34 ABG pO2 56 mmHg (85-104) L 05/28/17 20:34 ABG HCO3 34 mEq/L (21-27) H 05/28/17 20:34 ABG O2 Saturation 90 % (95-98) L 05/28/17 20:34 Calcium 8.4 mg/dL (8.6-10.8) L 05/30/17 00:29 Phosphorus 3.9 mg/dL (2.3-4.7) 05/28/17 03:50 Magnesium 1.7 mg/dL (1.6-2.6) 05/28/17 03:50 I reviewed the labs, med lists, progress notes, imaging and vitals. Consult Discharge Plan - Plan Referrals: Barbra Juarez MD [Primary Care Provider] - 06/06/17 11:40 am Prince Wolf MD [Family Provider] -
[2017-05-30] MEDS: metOLazone 2.5 MG TABLET PO SCH ×2 (11:40→20:50)
[2017-05-30] MEDS: Budesonide/Formoterol 80/4.5 MDI IH SCH ×2 (11:47→20:33)
--- NOTE | 2017-05-30 13:05 | Cardiology Progress Note ---
Date of Encounter: 05/30/17 Time of Encounter: 13:02 Assessment and Plan (1) Acute systolic congestive heart failure Current Visit: Yes Status: Acute Acute decompensated congestive heart failure with evidence of hypervolemia and mild elevation of troponins with a peak of 0.11 adynamic. Echocardiogram shows severely reduced ejection fraction at 30% and severe mitral regurgitation. LHC is recommended to assess for ischemic cause. Patient with worsening CHF. Lasix held due to concern for reduced urine out-pt. Discussed with Dr. Simental. Agrees with restarting IV diuretic at higher dose for diuresis. Also recommends adding metolazone. Scr remains stable. Only 350 ml urine output over last 24 hours. Goal net negative 1500ml. Continue to monitor BMP, strict I&O, and daily weight. LHC cancelled yesterday due to SOB and agitation at time of procedure. It was also noted that she had excoriation in her groin and abdominal folds. Now with nystatin powder. Plan for LHC when stable. Possible LHC friday. (2) Severe mitral regurgitation Current Visit: Yes Status: Acute See plan above. (3) Elevated troponin Current Visit: Yes Status: Acute Mild flat troponin elevation in the setting of acute systolic CHF. Discussion w patient/family: The assessment and plan as outlined above was discussed with the patient and/or family members who expressed understanding and agreement. All questions were answered. Thank you for involving us in the care of your patient. Please call with any questions. Subjective Principal diagnosis: acute systolic CHF, Severe MR. Interval history: Patient agitated today. She is alert and oriented and cooperative. Reports frustration of not being able to eat for three days in a row. She says she is feeling fine and does not feel there is anything wrong. She denies chest pain or SOB. Continues to require high flow oxygen. Objective Vital Signs, Last 4 Hours Temp Pulse Resp BP Pulse Ox 05/30/17 11:29 99.1 F 76 24 104/57 90 Results 05/30/17 00:29 05/30/17 00:29 Lab Results 05/29/17 05/29/17 05/30/17 16:02 16:59 00:29 WBC 6.9 Hgb 9.1 L Hct 28.4 L Plt Count 206 APTT 35.3 D Sodium 139 Potassium 4.3 Chloride 97 L Carbon Dioxide 27 BUN 25 H Creatinine 0.93 Glucose 164 H Calcium 8.3 L 05/30/17 05/30/17 05/30/17 00:29 00:29 08:25 WBC Hgb Hct Plt Count APTT 114.4 H* D 85.1 H Sodium 135 L Potassium 3.6 Chloride 95 L Carbon Dioxide 31 H BUN 26 H Creatinine 0.95 Glucose 215 H Calcium 8.4 L - Imaging and Cardiology Echo: report reviewed - EKG Interpretation EKG results cardiology: personally reviewed Consult Discharge Plan - Plan Referrals: Barbra Juarez MD [Primary Care Provider] - 06/06/17 11:40 am Prince Wolf MD [Family Provider] -
--- NOTE | 2017-05-30 15:03 | Internal Med Progress Note ---
Date of Encounter: 05/30/17 Time of Encounter: 08:30 - Assessment and plan (1) Acute on chronic respiratory failure with hypoxia Current Visit: Yes Status: Acute Assessment and plan: Due to acute congestive heart failure. Chest x-ray done today showed worsening pulmonary congestion. We will start patient back on intravenous Lasix. Consult nephrology for further recommendations as patient has had minimal urine output. Most likely from cardiorenal failure. Continue O2 supplementation with high flow nasal cannula and BiPAP as needed. High risk for complications. (2) Acute systolic congestive heart failure Current Visit: Yes Status: Acute Assessment and plan: Will resume Lasix. Consult nephrology. Monitor input and output, basic panel, weight. If patient does not respond well to Lasix or her blood pressure decreases, we will place her on Lasix drip instead. (3) Diabetes mellitus type 2 in obese Current Visit: Yes Status: Chronic Assessment and plan: Blood sugars are elevated. However patient has been nothing by mouth. On insulin per sliding scale. We will also place her on Levemir once she is able to eat. (4) Pleural effusion Current Visit: Yes Status: Acute Assessment and plan: Bilateral pleural effusion due to congestive heart failure. She went patient's condition has been stabilized, may consider thoracentesis. (5) Elevated troponin Current Visit: Yes Status: Acute Assessment and plan: Due to demand ischemia/non-ST elevation FL. Poor ejection fraction per 2-D echocardiogram. Cardiac catheterization pending. Cardiology following. Patient remains very dyspneic and hypoxic. We will follow cardiology recommendations. On IV heparin. (6) Hyperlipidemia Current Visit: Yes Status: Chronic Assessment and plan: On statin. Qualifiers: Hyperlipidemia type: mixed hyperlipidemia Qualified Code(s): E78.2 - Mixed hyperlipidemia (7) COPD (chronic obstructive pulmonary disease) Current Visit: Yes Status: Chronic Assessment and plan: Continue bronchodilators as needed. Qualifiers: COPD type: emphysema Emphysema type: panlobular Qualified Code(s): J43.1 - Panlobular emphysema - Subjective Interval history: Patient is lying in bed. Continues to be dyspneic. Appears tired. Family present at bedside. Left heart catheterization was canceled yesterday. To be reevaluated today. Patient continues to have poor urine output although it seems to be improving slowly. Denies any chest pain at this time. - Constitutional Vitals: Temp Pulse Resp BP Pulse Ox 99.1 F 76 24 104/57 90 05/30/17 11:29 05/30/17 11:29 05/30/17 11:29 05/30/17 11:29 05/30/17 11:29 General appearance: Present: cooperative, mild distress, A&O X 3, pleasant, obese, answers questions appropriately - Respiratory Respiratory exam: Present: decreased breath sounds (Bilaterally). Absent: accessory muscle use, rales, rhonchi, wheezes Additional comments: Bibasal crackles. - Cardiovascular Cardiovascular exam: Present: RRR, +S1, +S2. Absent: diastolic murmur, gallop, rubs, systolic murmur - GI/Abdominal GI/Abdominal exam: Present: normal bowel sounds, soft, no peritoneal signs. Absent: distended, tenderness - Extremities Exam Extremities exam: Present: warm, radial pulses palpable and symmetrical. Absent : calf tenderness, cyanotic, pedal edema - Neurological Exam Neurological exam: Present: alert, oriented X3, no focal deficits. Absent: facial droop, speech deficit - Skin Skin exam: Present: dry, intact Internal Medicine: Result - Labs CBC & Chem 7: 05/30/17 00:29 05/30/17 00:29 Labs: Short CBC 05/30/17 Range/Units 00:29 WBC 6.9 (4.3-11.1) K/mcL Hgb 9.1 L (11.5-15.4) g/dL Hct 28.4 L (35.3-44.9) % Plt Count 206 (140-400) K/mcL Neutrophils # 4.6 (1.6-8.9) K/mcL BMP 05/29/17 05/30/17 16:59 00:29 Sodium 139 135 L Potassium 4.3 3.6 Chloride 97 L 95 L Carbon Dioxide 27 31 H BUN 25 H 26 H Creatinine 0.93 0.95 Glucose 164 H 215 H Calcium 8.3 L 8.4 L - ABG Interpretation ABG results: ABG ABG pH 7.47 pH Units (7.32-7.45) H 05/28/17 20:34 ABG pCO2 47 mmHg (35-45) H 05/28/17 20:34 ABG pO2 56 mmHg (85-104) L 05/28/17 20:34 ABG O2 Saturation 90 % (95-98) L 05/28/17 20:34 PT/INR, D-dimer PT 13.2 Seconds (9.4-12.1) H 05/28/17 03:50 - Impressions Impressions Chest X-Ray 05/30/17 07:25 IMPRESSION: Worsening edema and effusions. D/ / 05/30/2017 08:12:04 Chester Hairston MD / geoff Interpreting Provider: Chester Hairston MD Consult Discharge Plan - Plan Referrals: Barbra Juarez MD [Primary Care Provider] - 06/06/17 11:40 am Prince Wolf MD [Family Provider] -
--- NOTE | 2017-05-30 15:45 | Electrocardiograph Report ---
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
[2017-05-30] MEDS: Heparin 25,000 UNIT/500 ML D5W 25,000 UNIT/500 ML MLS IVC SCH (16:11)
--- NOTE | 2017-05-30 16:17 | Electrocardiograph Report ---
[address] [place], [place] [address] Test Date: 2017-05-28 Pat Name: Quyen New Department: 111 Room: 2N10 Gender: F Preschool Assistant Principal: GENNARO : 1940 Requested By: Leticia aCrvalho Order Number: [id number] Reading MD: Elvis Colón Measurements Intervals [place] Rate: 131 P: [place]: 0 QRS: 16 QRSD: 93 T: -39 QT: 297 QTc: 374 Interpretive Statements POSSIBLE ATRIAL FIBRILLATION WITH RAPID VENTRICULAR RESPONSE LOW QRS VOLTAGE IN EXTREMITY LEADS NONSPECIFIC ST & T-WAVE ABNORMALITY ARTIFACT LIMITS INTERPRETATION Electronically Signed On 05-30-2017 16:15:40 EST by Elvis Colón
[2017-05-31] MEDS: Furosemide 40 MG/4 ML VIAL IVP SCH ×3 (03:40→15:25)
[2017-05-31] MEDS: *HR* LORazepam 1 MG TABLET PO PRN ×2 (04:28→19:32)
[2017-05-31 04:59] LABS: Bilirubin,Urine Small (Negative); Blood,Urine Large (Negative); Clarity,Urine Turbid (Clear); Color,Urine Red (Yellow); Glucose,Urine (UA) Normal (Normal); Ketones,Urine Negative (Negative); Leukocyte Esterase,Urine Moderate (Negative); Nitrite,Urine Positive (Negative); Protein,Urine 30 mg/dL (Neg-Trace); Urobilinogen,Urine Normal (Normal)
[2017-05-31 05:01] LABS: Bacteria,Urine Many per hpf (None-Few); Squamous Epithelial Cell,Urine Many per lpf (None-Few); WBC,Urine TNTC per hpf (0-3)
[2017-05-31 05:06] LABS: RBC,Urine 15-30 per hpf (0-3)
[2017-05-31 08:05] LABS: Alanine Aminotransferase 23 Units/L (0-55); Albumin 2.3 g/dL (3.5-5.0); Albumin/Globulin Ratio 0.7 (1.1-2.2); Alkaline Phosphatase 38 Units/L (38-126); Aspartate Amino Transferase 26 Units/L (5-34); BUN/Creatinine Ratio 30 (6-26); Bilirubin,Total 1.3 mg/dL (0.2-1.2); Blood Urea Nitrogen 29 mg/dL (7-20); Calcium 7.9 mg/dL (8.6-10.8); Carbon Dioxide 26 mEq/L (19-29); Chloride 94 mEq/L (98-109); Globulin 3.4 g/dL (2.4-3.5); Glucose 194 mg/dL (70-99); Magnesium 1.6 mg/dL (1.6-2.6); Osmolality,Calculated 283 (280-300); Potassium 3.3 mEq/L (3.5-4.5); Sodium 131 mEq/L (136-145); Total Protein 5.7 g/dL (6.0-8.3); eGFR For African Americans > 60 (> 60); eGFR For Non-African Americans 57 (> 60)
[2017-05-31] MEDS: Insulin LISPRO 300 UNITS/3 ML VIAL SQ SCH ×4 (08:21→22:39)
[2017-05-31] MEDS: *HR* Amiodarone 200 MG TABLET PO SCH ×2 (08:22→19:32)
[2017-05-31] MEDS: Aspirin Enteric Coated 81 MG Tablet PO SCH (08:22)
[2017-05-31] MEDS: metOLazone 2.5 MG TABLET PO SCH ×2 (08:22→19:32)
[2017-05-31] MEDS: Nystatin POWDER 30 GM BOTTLE TP SCH ×2 (08:22→19:32)
[2017-05-31] MEDS: Budesonide/Formoterol 80/4.5 MDI IH SCH ×2 (09:58→20:29)
--- NOTE | 2017-05-31 11:18 | Nephrology Progress Note ---
Date of Encounter: 05/31/17 Time of Encounter: 09:20 - Assessment and Plan (1) Hyponatremia Current Visit: Yes Status: Acute Suspect hypervolemic hyponatremia, most likely related to suspect reduced LVEF. Fluid restriction should continue and agree with diuretics to help correct her volume status. Of note the metolazone may be contributing, so if her PNa worsens tomorrow, then would stop the metolazone. She was sitting up in the bedside chair during my exam, eating well. SCr is relatively stable consistent with a small CAITLYN. Mildly hypokalemic as well , most likely from diuretics. Would replete KCl x1 today and add spironolactone to help optimize diuresis and help maintain normokalemia. Will add a BNP for the AM. There was mild expiratory wheezing noted one exam today; could there be any COPD component to her dyspnea? Renal U/S revealed increased echogenicity consistent with some underlying CKD and/or the known NSAID OTC history. Small renal cyst, that did not appear like a complex cyst or mass. Described results to the family. Continue to follow a renal protective strategy as able, though her renal function is not too far from normal/baseline. (2) Oliguria Current Visit: Yes Status: Acute See above (3) CAITLYN (acute kidney injury) Current Visit: Yes Status: Acute See above (4) Hypokalemia Current Visit: Yes Status: Acute See above (5) Pulmonary edema Current Visit: Yes Status: Acute Diuretics recommended. Qualifiers: Chronicity: acute Qualified Code(s): J81.0 - Acute pulmonary edema (6) Dyspnea Current Visit: Yes Status: Acute See above Qualifiers: Qualified Code(s): R06.00 - Dyspnea, unspecified (7) Hypoalbuminemia Current Visit: Yes Status: Acute Adequate nutrition when able. Subjective Principal diagnosis: acute systolic CHF, Severe MR. Interval history: Pt was s/e earlier this AM. She did not affirm N/V/D though still reported feeling shortness of breath and requiring high flow O2 per nasal canula. The pt' s daughters were present and helped with most of the information. Cardiology P[employer]SK[employer] TRIMMER was present and reported possibe [facility] on Friday. Objective - Vital Signs Vital signs: Vital Signs Temp Pulse Resp BP Pulse Ox 05/31/17 10:01 22 91 05/31/17 07:06 99.3 F 75 22 123/61 91 12/02/17 03:47 99.0 F 73 20 107/58 90 05/30/17 23:45 99.4 F 72 20 108/55 92 05/30/17 22:37 20 89 05/30/17 19:00 98.4 F 67 19 102/48 91 05/30/17 16:18 99.5 F 73 18 136/68 90 05/30/17 11:47 18 90 05/30/17 11:29 99.1 F 76 24 104/57 90 Intake and Output 05/30/17 05/31/17 05/31/17 23:59 07:59 15:59 Intake Total 170 / 170 50 / 50 60 / 60 Output Total 250 / 250 200 / 200 Balance -80 / -80 -150 / -150 60 / 60 Intake: Oral 170 / 170 50 / 50 60 / 60 Output: Urine 0 / 0 Catheter 250 / 250 200 / 200 Other: Meal Dinner Breakfast Percent of Meal Consumed 90% 50% # Voids 1 Weight 86.8 kg Blood Glucose* 254 204 Patient Weight 05/31/17 23:59 Weight 86.8 kg - General Appearance General appearance: Present: well-developed, well-nourished, appears started age , chronically ill, frail EENT: Present: ATNC, PERRL, mucous membranes moist Neck: Present: supple Respiratory: Present: wheezing Cardiology: Present: edema, regular rate, regular rhythm, normal S1, normal S2 Gastrointestinal: Present: normoactive bowel sounds, no tenderness, no guarding Integumentary: Present: warm and dry Neurologic: Present: no asterixis Musculoskeletal: Present: no erythema, no cyanosis Psychiatric: Present: mood/affect appropriate, cooperative - Lab 05/30/17 00:29 05/31/17 07:18 Most recent lab results ABG pH 7.47 pH Units (7.32-7.45) H 05/28/17 20:34 ABG pCO2 47 mmHg (35-45) H 05/28/17 20:34 ABG pO2 56 mmHg (85-104) L 05/28/17 20:34 ABG HCO3 34 mEq/L (21-27) H 05/28/17 20:34 ABG O2 Saturation 90 % (95-98) L 05/28/17 20:34 Calcium 7.9 mg/dL (8.6-10.8) L 05/31/17 07:18 Phosphorus 4.0 mg/dL (2.3-4.7) 05/31/17 07:18 Magnesium 1.6 mg/dL (1.6-2.6) 05/31/17 07:18 Urine Sodium 80.0 mEq/L 05/31/17 04:40 Consult Discharge Plan - Plan Referrals: Barbra Juarez MD [Primary Care Provider] - 06/06/17 11:40 am Prince Wolf MD [Family Provider] -
[2017-05-31] MEDS: Heparin 25,000 UNIT/500 ML D5W 25,000 UNIT/500 ML MLS IVC SCH (11:42)
[2017-05-31] MEDS: Spironolactone 25 MG TABLET PO SCH ×2 (11:44→19:32)
--- NOTE | 2017-05-31 12:35 | Cardiology Progress Note ---
Date of Encounter: 05/31/17 Time of Encounter: 12:32 Assessment and Plan (1) Acute systolic congestive heart failure Current Visit: Yes Status: Acute Acute decompensated congestive heart failure with evidence of fluid overload on exam. Echocardiogram shows severely reduced ejection fraction at 30% and severe mitral regurgitation. LHC is recommended to assess for ischemic cause. Patient with worsening CHF yesterday. Lasix held due to concern for reduced urine out-pt on 05/29/17. Nephrology consulted due to decreased urine out-pt. Started back on lasix and Metolazone yesterday. Urine output increased some. Negative 620 ml urine out- pt. Appreciate nephrology input. Spironlactone added today. Goal net negative 1500ml. Continue to monitor BMP, strict I&O, and daily weight. Plan for LHC when stable from a respiratory standpoint. Patient also had severe excoriation in her abdominal fold. Currently being treated with Nystatin powder. Possible LHC friday. (2) Severe mitral regurgitation Current Visit: Yes Status: Acute Severe MR seen on TTE. Plan for LHC when stable. (3) Elevated troponin Current Visit: Yes Status: Acute Mild flat troponin elevation. Demand ischemia in the setting of acute systolic CHF. Discussion w patient/family: The assessment and plan as outlined above was discussed with the patient and/or family members who expressed understanding and agreement. All questions were answered. Thank you for involving us in the care of your patient. Please call with any questions. Subjective Principal diagnosis: acute systolic CHF, Severe MR. Interval history: Patient more pleasant today. Sitting in chair eating with help of daughters. Denies chest pain or SOB. Objective Vital Signs, Last 4 Hours Temp Pulse Resp BP Pulse Ox 05/31/17 11:34 98.1 F 74 24 116/62 89 05/31/17 10:01 22 91 General: Conversant, No Apparent Distress HEENT: Atraumatic, Normocephaly, Mucus Membranes Moist Neck: No JVD, Normal carotid pulses Cardiac: Reg Rate and Rhythm, Normal S1 and S2, No Murmur, Other (2/6 systolic murmur.) Lungs: Other (Respirations easy, rhonci noted in RUL, diminished RLL. ) Neuro: Alert and responsive, No focal deficits noted Abdomen: Soft, Non-Tender Skin: No rashes noted on visualized skin Musculoskeletal: No Chest Wall Tenderness Extremities: No Clubbing, No Cyanosis, Normal Pulses, Other (2+ edema in feet and 1+ edema in bilatral legs. ) Results 05/30/17 00:29 05/31/17 07:18 Lab Results 05/30/17 05/31/17 05/31/17 14:18 07:18 07:18 APTT 87.1 H Sodium 131 L Potassium 3.3 L Chloride 94 L Carbon Dioxide 26 BUN 29 H Creatinine 0.96 Glucose 194 H Calcium 7.9 L Magnesium 1.6 Total Bilirubin 1.3 H AST 26 ALT 23 Alkaline Phosphatase 38 B-Natriuretic Peptide 417 H 05/31/17 07:18 APTT 83.8 H Sodium Potassium Chloride Carbon Dioxide BUN Creatinine Glucose Calcium Magnesium Total Bilirubin AST ALT Alkaline Phosphatase B-Natriuretic Peptide - Imaging and Cardiology Echo: report reviewed Consult Discharge Plan - Plan Referrals: Barbra Juarez MD [Primary Care Provider] - 06/06/17 11:40 am Prince Wolf MD [Family Provider] -
--- NOTE | 2017-05-31 13:46 | Internal Med Progress Note ---
Date of Encounter: 05/31/17 Time of Encounter: 13:44 - Assessment and plan (1) Pulmonary edema Current Visit: Yes Status: Acute Assessment and plan: Acute hypoxic and hypercapnic respiratory failure secondary to acute systolic CHF exacerbation with acute pulmonary edema and pleural effusions Ejection fraction 30% Continue Lasix IV, metolazone, may discontinue metolazone according to nephrology if her sodium keeps dropping Strict I's and O's and daily weight, keep Shook catheter UA could be possible for infection of the patient is completely asymptomatic Qualifiers: Chronicity: acute Qualified Code(s): J81.0 - Acute pulmonary edema (2) Pleural effusion Current Visit: Yes Status: Acute Assessment and plan: Bilateral pleural effusion due to congestive heart failure. She went patient's condition has been stabilized, may consider thoracentesis. (3) Elevated troponin Current Visit: Yes Status: Acute Assessment and plan: Possible non-STEMI Cardiac catheterization [place] for possibly for Friday. Cardiology following. Patient remains very dyspneic and hypoxic. We will follow cardiology recommendations. On IV heparin. (4) Acute systolic congestive heart failure Current Visit: Yes Status: Acute Assessment and plan: Lasix. Consulted nephrology. Monitor input and output, basic panel, weight. (5) Diabetes mellitus type 2 in obese Current Visit: Yes Status: Chronic Assessment and plan: . On insulin per sliding scale. Levemir once she is able to eat. (6) Acute on chronic respiratory failure with hypoxia Current Visit: Yes Status: Acute Assessment and plan: Due to acute congestive heart failure. Chest x-ray done today showed worsening pulmonary congestion. . Continue O2 supplementation with high flow nasal cannula , using 10 L of oxygen currently and BiPAP as needed. High risk for complications. (7) Oliguria Current Visit: Yes Status: Acute (8) Severe mitral regurgitation Current Visit: Yes Status: Acute (9) Hyponatremia Current Visit: Yes Status: Acute (10) Hypokalemia Current Visit: Yes Status: Acute Assessment and plan: Replete as needed - Subjective Interval history: Feeling less short of breath, denies any chest pain, no abdominal pain, no dysuria and no fevers, has a Shook catheter but denies any burning sensation - Constitutional Vitals: Temp Pulse Resp BP Pulse Ox 98.1 F 74 24 116/62 89 05/31/17 11:34 05/31/17 11:34 05/31/17 11:34 05/31/17 11:34 05/31/17 11:34 General appearance: Present: cooperative, mild distress, A&O X 3, pleasant, obese, answers questions appropriately - Head Head exam: Present: atraumatic, normocephalic - Eye Eye exam: Present: PERRL, conjuntiva pink, sclera anicteric Pupils: Present: PERRL - Neck Neck exam general surgery: Present: supple, trachea midline. Absent: lymphadenopathy - Respiratory Respiratory exam: Present: CTAB, rales (Bibasilar crackles). Absent: accessory muscle use, rhonchi, wheezes - Cardiovascular Cardiovascular exam: Present: RRR, +S1, +S2. Absent: diastolic murmur, gallop, rubs, systolic murmur - GI/Abdominal GI/Abdominal exam: Present: normal bowel sounds, soft, no peritoneal signs. Absent: distended, tenderness - Extremities Exam Extremities exam: Present: pedal edema (+3 pitting edema both lower extremities improving), warm, radial pulses palpable and symmetrical. Absent: calf tenderness, cyanotic - Neurological Exam Neurological exam: Present: CN II-XII intact, oriented X3, no focal deficits. Absent: pronater drift, facial droop, speech deficit - Skin Skin exam: Present: dry, intact Additional comments: Shook catheter in place Internal Medicine: Result - Labs CBC & Chem 7: 05/30/17 00:29 05/31/17 07:18 Labs: BMP 05/31/17 07:18 Sodium 131 L Potassium 3.3 L Chloride 94 L Carbon Dioxide 26 BUN 29 H Creatinine 0.96 Glucose 194 H Calcium 7.9 L Liver Function 05/31/17 Range/Units 07:18 Total Bilirubin 1.3 H (0.2-1.2) mg/dL AST 26 (5-34) Units/L ALT 23 (0-55) Units/L Alkaline Phosphatase 38 (38-126) Units/L Albumin 2.3 L (3.5-5.0) g/dL Urine 05/31/17 Range/Units 04:40 Urine Color Red A (Yellow) Urine Clarity Turbid A (Clear) Urine pH 6.0 (5.0-8.0) pH Units Ur Specific Sebastian 1.020 (1.010-1.025) Urine Protein 30 H (Neg-Trace) mg/dL Urine Glucose (UA) Normal (Normal) mg/dL - ABG Interpretation ABG results: ABG ABG pH 7.47 pH Units (7.32-7.45) H 05/28/17 20:34 ABG pCO2 47 mmHg (35-45) H 05/28/17 20:34 ABG pO2 56 mmHg (85-104) L 05/28/17 20:34 ABG O2 Saturation 90 % (95-98) L 05/28/17 20:34 PT/INR, D-dimer PT 13.2 Seconds (9.4-12.1) H 05/28/17 03:50 - Impressions Impressions Chest X-Ray 05/30/17 07:25 IMPRESSION: Worsening edema and effusions. D/ / 05/30/2017 08:12:04 Chester Hairston MD / geoff Interpreting Provider: Chester Hairston MD Retroperitoneum Ultrasound 05/30/17 19:00 IMPRESSION: Bilateral kidneys appear slightly echogenic, which may represent medical renal disease. There is otherwise no hydronephrosis. A 2.5 cm right renal cyst. Incidental slightly hydropic gallbladder with sludge. D/ / 05/30/2017 23:27:08 Richard Galicia MD / bcarter Interpreting Provider: Richard Galicia MD Consult Discharge Plan - Plan Referrals: Barbra Juarez MD [Primary Care Provider] - 06/06/17 11:40 am Prince Wolf MD [Family Provider] -
[2017-06-01] MEDS: *HR* LORazepam 1 MG TABLET PO PRN ×4 (02:18→22:11)
[2017-06-01 04:14] LABS: Basophils % 0.2 %; Eosinophils # 0.1 K/mcL (0.0-0.6); Eosinophils % 1.5 %; Hematocrit 26.1 % (35.3-44.9); Hemoglobin 8.5 g/dL (11.5-15.4); Immature Granulocytes % 0.2 % (0-4); Lymphocytes # 1.5 K/mcL (0.6-4.6); Lymphocytes % 28.1 %; Mean Corpuscular HGB Conc 32.6 g/dL (31.6-35.5); Mean Corpuscular Hemoglobin 30.6 pg (28.0-33.3); Mean Corpuscular Volume 93.9 fL (83.0-100.0); Mean Platelet Volume 10.4 fL (9.4-12.4); Monocytes # 0.5 K/mcL (0.0-1.3); Monocytes % 9.7 %; Neutrophils # 3.2 K/mcL (1.6-8.9); Platelet Count 185 K/mcL (140-400); Red Blood Count 2.78 M/mcL (3.82-4.97); Red Cell Distribution Width 15.6 % (11.5-14.5); Segmented Neutrophils % 60.3 %
[2017-06-01] MEDS: Furosemide 40 MG/4 ML VIAL IVP SCH ×3 (04:18→16:06)
[2017-06-01 04:28] LABS: BUN/Creatinine Ratio 30 (6-26); Blood Urea Nitrogen 28 mg/dL (7-20); Carbon Dioxide 33 mEq/L (19-29); Chloride 93 mEq/L (98-109); Glucose 212 mg/dL (70-99); Magnesium 1.7 mg/dL (1.6-2.6); Osmolality,Calculated 284 (280-300); Potassium 3.3 mEq/L (3.5-4.5); Sodium 131 mEq/L (136-145); eGFR For African Americans > 60 (> 60); eGFR For Non-African Americans 59 (> 60)
[2017-06-01] MEDS: Budesonide/Formoterol 80/4.5 MDI IH SCH ×2 (08:04→20:35)
[2017-06-01] MEDS: Aspirin Enteric Coated 81 MG Tablet PO SCH (09:26)
[2017-06-01] MEDS: *HR* Amiodarone 200 MG TABLET PO SCH ×2 (09:26→21:33)
[2017-06-01] MEDS: Spironolactone 25 MG TABLET PO SCH ×2 (09:26→21:34)
[2017-06-01] MEDS: metOLazone 2.5 MG TABLET PO SCH ×2 (09:26→21:34)
[2017-06-01] MEDS: Nystatin POWDER 30 GM BOTTLE TP SCH ×2 (09:27→21:34)
[2017-06-01] MEDS: Insulin LISPRO 300 UNITS/3 ML VIAL SQ SCH ×4 (09:28→21:33)
--- NOTE | 2017-06-01 10:23 | Internal Med Progress Note ---
Date of Encounter: 06/01/17 Time of Encounter: 10:20 - Assessment and plan (1) Pulmonary edema Current Visit: Yes Status: Acute Assessment and plan: Acute hypoxic and hypercapnic respiratory failure secondary to acute systolic CHF exacerbation with acute pulmonary edema and pleural effusions Ejection fraction 30% Continue Lasix IV, metolazone, may discontinue metolazone according to nephrology if her sodium keeps dropping Strict I's and O's and daily weight, keep Shook catheter UA showed possible infection but the patient is completely asymptomatic Qualifiers: Chronicity: acute Qualified Code(s): J81.0 - Acute pulmonary edema (2) Pleural effusion Current Visit: Yes Status: Acute Assessment and plan: Bilateral pleural effusion due to congestive heart failure. She went patient's condition has been stabilized, may consider thoracentesis. (3) Elevated troponin Current Visit: Yes Status: Acute Assessment and plan: Possible non-STEMI Cardiac catheterization [place] for possibly for Friday. Cardiology following. Patient remains very dyspneic and hypoxic. We will follow cardiology recommendations. On IV heparin. (4) Acute systolic congestive heart failure Current Visit: Yes Status: Acute Assessment and plan: Lasix. Consulted nephrology. Monitor input and output, basic panel, weight. (5) Diabetes mellitus type 2 in obese Current Visit: Yes Status: Chronic Assessment and plan: . On insulin per sliding scale. Start Levemir 5 units now and start regular dose at night (6) Acute on chronic respiratory failure with hypoxia Current Visit: Yes Status: Acute Assessment and plan: Due to acute congestive heart failure. Chest x-ray done today showed worsening pulmonary congestion. . Continue O2 supplementation with high flow nasal cannula , using 12 L of oxygen currently and BiPAP as needed. High risk for complications. (7) Oliguria Current Visit: Yes Status: Acute (8) Severe mitral regurgitation Current Visit: Yes Status: Acute (9) Hyponatremia Current Visit: Yes Status: Acute (10) Hypokalemia Current Visit: Yes Status: Acute Assessment and plan: Replete as needed - Subjective Interval history: Plan of lower back pain. Feeling less short of breath, denies any chest pain, no abdominal pain, no dysuria and no fevers, has a Shook catheter but denies any burning sensation - Constitutional Vitals: Temp Pulse Resp BP Pulse Ox 98.6 F 74 18 119/62 90 06/01/17 07:50 06/01/17 07:50 06/01/17 08:04 06/01/17 07:50 06/01/17 08:04 General appearance: Present: cooperative, mild distress, A&O X 3, pleasant, obese, answers questions appropriately Exam: - Head Head exam: Present: atraumatic, normocephalic - Eye Eye exam: Present: PERRL, conjuntiva pink, sclera anicteric Pupils: Present: PERRL - Neck Neck exam general surgery: Present: supple, trachea midline. Absent: lymphadenopathy - Respiratory Respiratory exam: Present: CTAB, rales (Bibasilar crackles). Absent: accessory muscle use, rhonchi, wheezes - Cardiovascular Cardiovascular exam: Present: RRR, +S1, +S2. Absent: diastolic murmur, gallop, rubs, systolic murmur - GI/Abdominal GI/Abdominal exam: Present: normal bowel sounds, soft, no peritoneal signs. Absent: distended, tenderness - Extremities Exam Extremities exam: Present: pedal edema (+3 pitting edema both lower extremities improving), warm, radial pulses palpable and symmetrical. Absent: calf tenderness, cyanotic - Neurological Exam Neurological exam: Present: CN II-XII intact, oriented X3, no focal deficits. Absent: pronater drift, facial droop, speech deficit - Skin Skin exam: Present: dry, intact Additional comments: Shook catheter in place Internal Medicine: Result - Labs CBC & Chem 7: 06/01/17 03:34 06/01/17 03:34 Labs: Short CBC 06/01/17 Range/Units 03:34 WBC 5.3 (4.3-11.1) K/mcL Hgb 8.5 L (11.5-15.4) g/dL Hct 26.1 L (35.3-44.9) % Plt Count 185 (140-400) K/mcL Neutrophils # 3.2 (1.6-8.9) K/mcL BMP 06/01/17 03:34 Sodium 131 L Potassium 3.3 L Chloride 93 L Carbon Dioxide 33 H BUN 28 H Creatinine 0.93 Glucose 212 H Calcium 8.0 L - ABG Interpretation ABG results: ABG ABG pH 7.47 pH Units (7.32-7.45) H 05/28/17 20:34 ABG pCO2 47 mmHg (35-45) H 05/28/17 20:34 ABG pO2 56 mmHg (85-104) L 05/28/17 20:34 ABG O2 Saturation 90 % (95-98) L 05/28/17 20:34 PT/INR, D-dimer PT 13.2 Seconds (9.4-12.1) H 05/28/17 03:50 Consult Discharge Plan - Plan Referrals: Barbra Juarez MD [Primary Care Provider] - 06/06/17 11:40 am Prince Wolf MD [Family Provider] -
[2017-06-01] MEDS: Insulin DETEMIR 100 UNIT/ML X5UNITS SQ SCH ×2 (13:18→21:56)
[2017-06-01] MEDS: OxyCODONE CONC 5 MG/0.25 ML ORAL.SYG PO PRN (16:06)
--- NOTE | 2017-06-01 16:29 | Cardiology Progress Note ---
Date of Encounter: 06/01/17 Time of Encounter: 16:40 Assessment and Plan (1) Acute systolic congestive heart failure Current Visit: Yes Status: Acute Per Cardiology: Acute decompensated congestive heart failure with evidence of fluid overload on exam. Echocardiogram shows severely reduced ejection fraction at 30% and severe mitral regurgitation. Net I&O - 4380ml. On IV Lasix 40mg q8hrs, aldactone and metalzone. BNP only in the 400's-600's. Plan for LHC when stable from a respiratory standpoint-- still on high O2 requirements. Patient also had severe excoriation in her abdominal fold-- will monitor for LHC.. (2) Acute on chronic respiratory failure with hypoxia Current Visit: Yes Status: Acute Per Cardiology: Remains on high flow O2 NC 15L, now back on BiPap and received ativan-- resting more comfortably. Last CXR 05/30/17 showed worsening bilateral pleural effusions. Will repeat CXR-- may need thoracentesis. Discussed with Dr. Ana Paula Colón, will consult Pulm-- check CXR, check ABG, will add IV NTG gtt 10/mcg/ min. (3) CAITLYN (acute kidney injury) Current Visit: Yes Status: Acute Per Cardiology: Kidney fxn improved. Nephrology following. (4) Elevated troponin Current Visit: Yes Status: Acute Per Cardiology: Mild flat troponin elevation. Demand ischemia in the setting of acute systolic CHF. CP free. No cardiac rehab warranted. (5) Pleural effusion Current Visit: Yes Status: Acute Per Cardiology: CXR pending-- will have pulm eval for possible thoracentesis. (6) Severe mitral regurgitation Current Visit: Yes Status: Acute Per Cardiology: Severe MR seen on TTE. Plan for LHC when stable. (7) Afib Current Visit: Yes Status: Acute Per Cardiology: Had Paf during stay. Now SR. On PO amio. Qualifiers: Atrial fibrillation type: paroxysmal Qualified Code(s): I48.0 - Paroxysmal atrial fibrillation Discussion w patient/family: The assessment and plan as outlined above was discussed with the patient and/or family members who expressed understanding and agreement. All questions were answered. Thank you for involving us in the care of your patient. Please call with any questions. Subjective Principal diagnosis: acute systolic CHF, Severe MR. Interval history: Patient seen this evening with family at bedside. Reports increasing shortness of breath at rest during hospital stay. She reports prior to hospitalization and the past 4 weeks did not require oxygen at home and denies any known history of COPD and has never smoked. Seen by Pulmonology as outpatient and sent to ER. She denies any chest pain, palpitations, dizziness, any active bleeding or blood loss. Nurse at bedside reports on 15 L nasal cannula high flow oxygen-- had previously been on 10-12 L. Objective Selected Entries 06/01/17 10:53 06/01/17 11:00 Temperature 98.7 F Pulse Rate 73 Respiratory Rate 18 Blood Pressure 114/62 O2 Sat by Pulse Oximetry 89 Oxygen Flow Rate (LPM) 12 Oxygen Delivery Method High Flow Nasal Cannula Laboratory Tests 05/27/17 05/27/17 05/27/17 11:43 16:28 21:48 Potassium Creatinine Est GFR ( Amer) Troponin I 0.11 H* 0.12 H* 0.11 H* B-Natriuretic Peptide 05/28/17 05/28/17 05/28/17 03:50 03:50 16:28 Potassium Creatinine Est GFR ( Amer) Troponin I 0.11 H* 0.11 H* B-Natriuretic Peptide 662 H 05/31/17 06/01/17 06/01/17 07:18 03:34 03:34 Potassium 3.3 L Creatinine 0.93 Est GFR ( Amer) > 60 Troponin I B-Natriuretic Peptide 417 H 546 H General: Conversant HEENT: Atraumatic, Normocephaly Cardiac: Reg Rate and Rhythm, Normal S1 and S2, Other (Grade III/ murmur) Lungs: Other (diminished breath sounds bilaterally) Neuro: Alert and responsive, Other (anxious) Abdomen: Soft, Non-Tender, Other (obese) Skin: No rashes noted on visualized skin Extremities: No Edema (Bilateral +2 pitting edema bilateral LE), Other Results 06/01/17 03:34 06/01/17 03:34 Lab Results - Imaging and Cardiology Chest Xray: pending, report reviewed Echo: report reviewed Cardiac cath: pending - EKG Interpretation EKG results cardiology: other (SR on tele) Consult Discharge Plan - Plan Referrals: Barbra Juarez MD [Primary Care Provider] - 06/06/17 11:40 am Prince Wolf MD [Family Provider] -
[2017-06-01] MEDS ORDERED: Nitroglycerin 25 MG/250 ML INFUS..BTL IVC SCH (16:45)
[2017-06-01 18:01] LABS: ABG Base Excess 14 mEq/L (-2 to 3); ABG HCO3 39 mEq/L (21-27); ABG Oxygen Saturation 94 % (95-98); ABG PCO2 50 mmHg (35-45); ABG PO2 65 mmHg (85-104); ABG TCO2 40 mEq/L (20-26); Blood Gas Modality BiLevel
[2017-06-02] MEDS: Heparin 25,000 UNIT/500 ML D5W 25,000 UNIT/500 ML MLS IVC SCH (00:05)
[2017-06-02] MEDS: Furosemide 40 MG/4 ML VIAL IVP SCH ×4 (00:05→23:34)
[2017-06-02] MEDS: *HR* LORazepam 1 MG TABLET PO PRN ×2 (04:08→20:51)
[2017-06-02 05:24] LABS: BUN/Creatinine Ratio 29 (6-26); Blood Urea Nitrogen 25 mg/dL (7-20); Calcium 8.6 mg/dL (8.6-10.8); Carbon Dioxide 36 mEq/L (19-29); Chloride 85 mEq/L (98-109); Glucose 161 mg/dL (70-99); Osmolality,Calculated 282 (280-300); Potassium 3.9 mEq/L (3.5-4.5); Sodium 132 mEq/L (136-145); eGFR For African Americans > 60 (> 60); eGFR For Non-African Americans > 60 (> 60)
--- NOTE | 2017-06-02 06:37 | Pulmonology Consult Note ---
Date of Encounter: 06/02/17 Time of Encounter: 06:37 Assessment and Plan (1) Pleural effusion Current Visit: Yes Status: Acute This is a 77-year-old woman who was admitted after it was found that she had no oxygen requirements and bilateral lower showing edema workup this far as been consistent with diagnosis of decompensated heart failure with severe mitral regurgitation. Despite aggressive diuresis she remains on high flow nasal cannula oxygen with notable desaturation. She also has evidence of bilateral pleural effusions which are secondary to known heart failure I do not think that she has an infection at present. This clearly a complicated case and she will night aggressive intervention for druze of cardiac function including left heart catheterization for evaluation of ischemic disease this is being planned but patient has been able to lay flat long enough to have the procedure done pulmonary was consulted to evaluate the patient for thoracentesis to see if this would help with her overall respiratory status. It is unclear to me how beneficial this procedure would be as I feel that her declining respiratory status is just as much a factor of atelectasis with VQ mismatch from laying supine over the last week as it is the pleural collection some cells given that there really has not been any increase in size of the pleural effusions radiographically it is possible that there may be some albeit likely modest benefit from thoracentesis which I offered the patient. She was equivocal about undergoing this and it is clear from my discussions with her that her primary goal is to "just go home" I am afraid that she has poor insight into the nature of her severe heart disease and that she will need ongoing invasive procedures for druze of her cardiac performance. I am not sure that she is capable or willing to undergo this and I would recommend formal consultation with palliative care service to make sure that current aggressive management is in keeping with her own goals of care. Recs: -I will defer ongoing management of heart failure to the cardiac service. I would note that looks like she is developing a metabolic alkalosis for which close replacement of her electrolytes including potassium and magnesium will be crucial in addition a 24-48 hour course of Diamox 250 mg 3 times a day may be helpful as she does not have any evidence of kidney dysfunction continue diuresis is likely beneficial -With regards to bilateral pleural effusions is secondary to her known heart failure thoracentesis is a reasonable option here although the mainstay of treatment for this is clearly management of her heart failure and without improvement in mitral regurgitation I will fill that this is going to recur readily. Given how sure that she can even sit up for the procedure to be done at bedside as such I think it would be safer to refer her to interventional radiology which could be timed likely tomorrow with interruption of ongoing anticoagulation if cardiology deems is safe to do. -Recommend formal consultation with palliative care service for ongoing goals of care discussion -Physical therapy/occupational therapy consult I discussed my observations/recs directly with the cardiology nurse practitioner Jayden Becerra. Pulmonary will continue to follow (2) Acute systolic congestive heart failure Current Visit: Yes Status: Acute (3) Metabolic alkalosis Current Visit: Yes Status: Acute (4) Goals of care, counseling/discussion Current Visit: Yes Status: Acute (5) Acute on chronic respiratory failure with hypoxia Current Visit: Yes Status: Acute (6) Severe mitral regurgitation Current Visit: Yes Status: Acute History of Present Illness Consult date: 06/02/17 Requesting physician: Jayden Becerra Reason for consult: pleural effusion Chief complaint: Shortness of breath History of present illness: This is a pleasant 77-year-old woman who I had the pleasure to see in clinic early last week or and she presented with new onset respiratory failure requiring up to 4 L nasal cannula oxygen over the month prior. She had no prior medical history and was relatively healthy and never followed up with a physician prior to this. Upon my evaluation the outpatient clinic I was concerned for decompensated heart failure and sent her to the ED. Workup showed chest x-ray bilateral pleural effusion and echocardiogram with reduced ejection fraction to 30% and severe mitral regurgitation concerning for ischemic process. She had been in the hospital over the last week undergoing diuresis with plan for left heart catheterization as part of ischemic workup. Unfortunately she has not made much progress over the last week and remains volume overloaded and requiring up to 10 and even 15 L of high flow nasal cannula keep saturation around 90%. She is also been using bilevel positive airway pressure support periodically to help with her dyspnea and improved oxygen saturation she finds the mask very uncomfortable Plan I was consulted to evaluate the patient for possibility of thoracentesis given bilateral pleural effusions My discussion with the patient today she is clearly miserable. She states repeatedly that she "wants to go home" and is not sure why she has to remain in the hospital. I did explain to her that she has severe heart failure and possible ischemic heart disease that needs further evaluation. She is clearly more deconditioned over the last week than when I saw her in clinic at that time she is able to sit up in a wheelchair in had some amount of strength but now she is very weak and unable to to barely sit up in bed. She is joined by 2 of her adult daughters. 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 Past Med Surg Social Fam HX - Past Medical History Medical history: arthritis, CHF, COPD, diabetes Psychiatric history: no psych history - Social History Smoking Status: Never smoker Smokeless Tobacco Status: No Alcohol use: none Drug use: none Medications and Allergies Albuterol Sulfate [Albuterol Inhaler] 2 puff IH Q6H PRN 05/27/17 [History] Budesonide/Formoterol 80/4.5 [Symbicort 80/4.5] 2 puff IH BID 05/27/17 [History ] Ranitidine HCl [Heartburn Relief] 150 mg PO BID 05/27/17 [History] 3 Allergy/AdvReac Type Severity Reaction Status Date / Time No Known Allergies Allergy Verified 05/27/17 11:50 All Systems: A 10-system review of systems was performed and is negative for pertinent findings except as documented above in the HPI. Physical Examination Vital Signs: Vital Signs, Last 4 Hours Temp Pulse Resp BP Pulse Ox 06/02/17 04:45 98.7 F 73 20 89/50 90 06/02/17 03:20 14 93/48 94 General appearance: appears uncomfortable Eyes: nonicteric ENT: oropharynx moist Neck: supple Effort: normal Auscultation: bilateral: diminished breath sounds Cardiovascular: regular rate and rhythm Gastrointestinal: normoactive bowel sounds, soft, non-tender Extremities: edema (2+ lower extremity edema to the mid tibia region) Musculoskeletal: no deformities non-focal exam anxious, depressed Results - Laboratory Findings CBC and BMP: 06/01/17 03:34 06/02/17 04:19 ABG ABG pH 7.50 pH Units (7.32-7.45) H 06/01/17 17:48 ABG pCO2 50 mmHg (35-45) H 06/01/17 17:48 ABG pO2 65 mmHg (85-104) L 06/01/17 17:48 ABG O2 Saturation 94 % (95-98) L 06/01/17 17:48 PT/INR, D-dimer PT 13.2 Seconds (9.4-12.1) H 05/28/17 03:50 Abnormal lab findings: Abnormal lab results RBC 2.78 M/mcL (3.82-4.97) L 06/01/17 03:34 Hgb 8.5 g/dL (11.5-15.4) L 06/01/17 03:34 Hct 26.1 % (35.3-44.9) L 06/01/17 03:34 RDW 15.6 % (11.5-14.5) H 06/01/17 03:34 PT 13.2 Seconds (9.4-12.1) H 05/28/17 03:50 APTT 67.3 Seconds (26.0-36.0) H 06/02/17 04:25 Heparin Anti-Xa, Unfract 0.81 IU/mL (0.30-0.70) H 05/30/17 00:29 ABG pH 7.50 pH Units (7.32-7.45) H 06/01/17 17:48 ABG pCO2 50 mmHg (35-45) H 06/01/17 17:48 ABG pO2 65 mmHg (85-104) L 06/01/17 17:48 ABG HCO3 39 mEq/L (21-27) H 06/01/17 17:48 ABG Total CO2 40 mEq/L (20-26) H 06/01/17 17:48 ABG O2 Saturation 94 % (95-98) L 06/01/17 17:48 ABG Base Excess 14 mEq/L (-2 to 3) H 06/01/17 17:48 Sodium 132 mEq/L (136-145) L 06/02/17 04:19 Chloride 85 mEq/L (98-109) L 06/02/17 04:19 Carbon Dioxide 36 mEq/L (19-29) H 06/02/17 04:19 BUN 25 mg/dL (7-20) H 06/02/17 04:19 BUN/Creatinine Ratio 29 (6-26) H 06/02/17 04:19 Glucose 161 mg/dL (70-99) H 06/02/17 04:19 POC Glucose 202 (58-89) H 06/01/17 21:25 Hemoglobin A1c 10.9 % (-5.6) H 05/27/17 21:48 Total Bilirubin 1.3 mg/dL (0.2-1.2) H 05/31/17 07:18 Troponin I 0.11 ng/mL (0-0.03) H* 05/28/17 16:28 B-Natriuretic Peptide 546 pg/mL (0-100) H 06/01/17 03:34 Serum Total Protein 5.7 g/dL (6.0-8.3) L 05/31/17 07:18 Albumin 2.3 g/dL (3.5-5.0) L 05/31/17 07:18 Albumin/Globulin Ratio 0.7 (1.1-2.2) L 05/31/17 07:18 Triglycerides 169 mg/dL (< 150) H 05/28/17 03:50 Cholesterol 205 mg/dL (< 200) H 05/28/17 03:50 LDL Cholesterol, Calc 141 mg/dL (0-99) H 05/28/17 03:50 VLDL Cholesterol, Calc 34 mg/dL (< 31) H 05/28/17 03:50 HDL Cholesterol 30 mg/dL (40-59) L 05/28/17 03:50 Cholesterol/HDL Ratio 6.8 (0-4.9) H 05/28/17 03:50 Urine Color Red (Yellow) A 05/31/17 04:40 Urine Clarity Turbid (Clear) A 05/31/17 04:40 Urine Protein 30 mg/dL (Neg-Trace) H 05/31/17 04:40 Urine Blood Large (Negative) H 05/31/17 04:40 Urine Nitrite Positive (Negative) A 05/31/17 04:40 Urine Bilirubin Small (Negative) H 05/31/17 04:40 Ur Leukocyte Esterase Moderate (Negative) H 05/31/17 04:40 Urine Microscopic RBC 15-30 per hpf (0-3) H 05/31/17 04:40 Urine Microscopic WBC TNTC per hpf (0-3) H 05/31/17 04:40 Ur Squamous Epith Cells Many per lpf (None-Few) H 05/31/17 04:40 Urine Bacteria Many per hpf (None-Few) H 05/31/17 04:40 - Diagnostic Findings Chest x-ray: report reviewed, image reviewed CT scan - chest: report reviewed, image reviewed - Clinical Findings Intake & Output: Intake & Output 06/01/17 06/01/17 06/02/17 15:59 23:59 07:59 Intake Total 360 / 360 0 / 0 884 / 884 Output Total 2570 / 2570 1095 / 1095 1525 / 1525 Balance -2210 / -2210 -1095 / -1095 -641 / -641 Weight 84.5 kg Consult Discharge Plan - Plan Referrals: Barbra Juarez MD [Primary Care Provider] - 06/06/17 11:40 am Prince Wolf MD [Family Provider] -
[2017-06-02] MEDS: Budesonide/Formoterol 80/4.5 MDI IH SCH ×2 (08:08→20:46)
[2017-06-02] MEDS: Aspirin Enteric Coated 81 MG Tablet PO SCH (08:18)
[2017-06-02] MEDS: *HR* Amiodarone 200 MG TABLET PO SCH ×2 (08:18→20:50)
[2017-06-02] MEDS: Spironolactone 25 MG TABLET PO SCH ×2 (08:18→20:51)
[2017-06-02] MEDS: Insulin LISPRO 300 UNITS/3 ML VIAL SQ SCH ×4 (08:19→20:53)
[2017-06-02] MEDS: Nystatin POWDER 30 GM BOTTLE TP SCH ×2 (08:19→23:34)
[2017-06-02] MEDS: metOLazone 2.5 MG TABLET PO SCH ×2 (08:19→20:51)
--- NOTE | 2017-06-02 09:52 | Internal Med Progress Note ---
Date of Encounter: 06/02/17 Time of Encounter: 09:52 - Assessment and plan (1) Acute on chronic respiratory failure with hypoxia Current Visit: Yes Status: Acute Assessment and plan: Due to acute congestive heart failure. Previous chest x-ray with worsening bilateral pleural effusions. Continue oxygen supplementation is needed, would recommend BiPAP if tolerated. (2) Pleural effusion Current Visit: Yes Status: Acute Assessment and plan: Bilateral pleural effusion due to congestive heart failure. Pulmonology consult in, recommends thoracentesis done by interventional radiology. We need to hold Heparin prior to any intervention. Per patient's daughter who is at bedside this morning, patient may not wish to pursue thoracentesis or any other measures. May consider consults with palliative care for goals of care discussion. (3) Acute systolic congestive heart failure Current Visit: Yes Status: Acute Assessment and plan: New diagnosis. Suspect underlying cardiac event. Cardiology following. Plans for heart Once respiratory status is stable. Plan for thoracentesis with interventional radiology. (4) Elevated troponin Current Visit: Yes Status: Acute Assessment and plan: Possible non-STEMI Cardiology following. Cardiology like to do a left heart However will not plan to do so until patient's respiratory status improves. We will follow cardiology recommendations. On IV heparin. Will need to discontinue IV heparin prior to any thoracentesis. (5) Pulmonary edema Current Visit: Yes Status: Acute Assessment and plan: Acute hypoxic and hypercapnic respiratory failure secondary to acute systolic CHF exacerbation with acute pulmonary edema and pleural effusions Ejection fraction 30% Continue Lasix IV. Strict I's and O's and daily weight, keep Shook catheter Qualifiers: Chronicity: acute Qualified Code(s): J81.0 - Acute pulmonary edema (6) COPD (chronic obstructive pulmonary disease) Current Visit: Yes Status: Chronic Assessment and plan: Continue bronchodilators as needed. Qualifiers: COPD type: emphysema Emphysema type: panlobular Qualified Code(s): J43.1 - Panlobular emphysema (7) Diabetes mellitus type 2 in obese Current Visit: Yes Status: Chronic Assessment and plan: Continue Levemir. On insulin per sliding scale. (8) Hyperlipidemia Current Visit: Yes Status: Chronic Assessment and plan: On statin. Qualifiers: Hyperlipidemia type: mixed hyperlipidemia Qualified Code(s): E78.2 - Mixed hyperlipidemia - Subjective Interval history: Patient was admitted for acute respiratory failure secondary to what appears to be acute myocardial infarction. She has had worsening respiratory status with increasing pulmonary edema and pleural effusions making any intervention for her heart challenging. She remains on oxygen, did not require oxygen prior to stay. Patient seen and examined this morning at that site. Her 2 daughters are in the room with her. Chin states she is not feeling well. Patient has expressed desire previously to other provider that she wishes to go home. Daughters state that patient has expressed to them desire that she does not want to have thoracentesis or other interventions. There is possible consideration of palliative care. Patient is tolerating diet. - Constitutional Vitals: Temp Pulse Resp BP Pulse Ox 98.6 F 79 19 105/90 92 06/02/17 07:10 06/02/17 09:00 06/02/17 07:10 06/02/17 09:00 06/02/17 07:10 General appearance: Present: cooperative, mild distress, morbidly obese, answers questions appropriately - Head Head exam: Present: atraumatic, normocephalic Additional comments: Nasal cannula and place - ENT ENT exam: Present: mucous membranes moist - Neck Neck exam general surgery: Present: supple, trachea midline - Respiratory Respiratory exam: Present: decreased breath sounds, rales (bibaslar). Absent: rhonchi, wheezes - Cardiovascular Cardiovascular exam: Present: RRR, +S1, +S2 - GI/Abdominal GI/Abdominal exam: Present: normal bowel sounds, soft. Absent: distended, guarding, rigid, tenderness - Extremities Exam Extremities exam: Absent: pedal edema, tenderness - Skin Skin exam: Present: dry, warm Internal Medicine: Result - Labs CBC & Chem 7: 06/01/17 03:34 06/02/17 04:19 Labs: BMP 06/02/17 04:19 Sodium 132 L Potassium 3.9 Chloride 85 L Carbon Dioxide 36 H BUN 25 H Creatinine 0.87 Glucose 161 H Calcium 8.6 - ABG Interpretation ABG results: ABG ABG pH 7.50 pH Units (7.32-7.45) H 06/01/17 17:48 ABG pCO2 50 mmHg (35-45) H 06/01/17 17:48 ABG pO2 65 mmHg (85-104) L 06/01/17 17:48 ABG O2 Saturation 94 % (95-98) L 06/01/17 17:48 PT/INR, D-dimer PT 13.2 Seconds (9.4-12.1) H 05/28/17 03:50 - Impressions Impressions Retroperitoneum Ultrasound 05/30/17 19:00 IMPRESSION: Bilateral kidneys appear slightly echogenic, which may represent medical renal disease. There is otherwise no hydronephrosis. A 2.5 cm right renal cyst. Incidental slightly hydropic gallbladder with sludge. D/ / 05/30/2017 23:27:08 Richard Galicia MD / scarlett Interpreting Provider: Richard Galicia MD Chest X-Ray 06/01/17 16:42 IMPRESSION: No substantial change in large bilateral pleural effusions and borderline background pulmonary edema. Basilar opacities favored to reflect a combination of atelectasis and fluid. Cannot exclude superimposed airspace disease such as aspiration or pneumonia. D/ / Richard Jaimes / Richard Jaimes Interpreting Provider: Richard Jaimes Consult Discharge Plan - Plan Referrals: Barbra Juarez MD [Primary Care Provider] - 06/06/17 11:40 am Prince Wolf MD [Family Provider] -
--- NOTE | 2017-06-02 09:53 | Cardiology Progress Note ---
Date of Encounter: 06/02/17 Time of Encounter: 09:53 Assessment and Plan (1) Acute systolic congestive heart failure Current Visit: Yes Status: Acute Per Cardiology: Acute decompensated congestive heart failure with continued evidence of fluid overload on exam. Echocardiogram shows severely reduced ejection fraction at 30 % and severe mitral regurgitation. Net I&O - 7326ml. On IV Lasix 40mg q8hrs, aldactone and metalzone, and IV NTG. BNP only in the 400's-600's. Out-put increased over last 24 hours. Plan for LHC when stable from a respiratory standpoint-- still on high O2 requirements. CXR yesterday showed large bilateral pleural effusions. Pulmonary consulted. Appreciate recs. Thoracentesis ordered to be completed by IR. Agree with pulmonology that pleural effusions will likely re-occur until CHF and severe MR treated. We have not been able to complete LHC due to respiratory status not improving despite diuresis. Thoracentesis recommended to help improve respiratory status to allow for LHC to look for ischemic cause of cardiomyopathy and severe MR. Patient also had severe excoriation in her abdominal folds that has improved. I discussed with patient and family who agree with plan. IR consulted. -- Will monitor for LHC. (2) Severe mitral regurgitation Current Visit: Yes Status: Acute Per Cardiology: Severe MR seen on TTE. Plan for LHC when stable. (3) Elevated troponin Current Visit: Yes Status: Acute Per Cardiology: Mild flat troponin elevation. Demand ischemia in the setting of acute systolic CHF. CP free. No cardiac rehab warranted. (4) Afib Current Visit: Yes Status: Acute Per Cardiology: Had PAF during stay and loaded with IV amiodarone. Now SR. On PO amio. On heparin gtt for AC. Will need to hold for thoracentesis. Will discuss AC further after LHC. CHADS VASc=4 (CHF, DM, age, gender) Qualifiers: Atrial fibrillation type: paroxysmal Qualified Code(s): I48.0 - Paroxysmal atrial fibrillation Discussion w patient/family: The assessment and plan as outlined above was discussed with the patient and/or family members who expressed understanding and agreement. All questions were answered. Thank you for involving us in the care of your patient. Please call with any questions. Subjective Principal diagnosis: acute systolic CHF, Severe MR. Interval history: Patient with no complaints. Working with physical therapy. Generalized weakness noted. Objective Vital Signs, Last 4 Hours Temp Pulse Resp BP Pulse Ox 06/02/17 08:32 72 06/02/17 07:10 98.6 F 73 19 92/55 92 06/02/17 06:00 70 87/45 General: Conversant, No Apparent Distress HEENT: Atraumatic, Normocephaly, Mucus Membranes Moist Neck: No JVD, Normal carotid pulses Cardiac: Reg Rate and Rhythm, Normal S1 and S2, Other (2/6 systolic murmur) Lungs: No Wheeze, Rales, Rhonchi, Other (diminished throughout.) Neuro: Alert and responsive, No focal deficits noted Abdomen: Soft, Non-Tender Skin: No rashes noted on visualized skin Musculoskeletal: No Chest Wall Tenderness Extremities: No Clubbing, No Cyanosis, Normal Pulses, Other (2+ BLE edema) Results 06/01/17 03:34 06/02/17 04:19 Lab Results 06/02/17 06/02/17 04:19 04:25 APTT 67.3 H Sodium 132 L Potassium 3.9 Chloride 85 L Carbon Dioxide 36 H BUN 25 H Creatinine 0.87 Glucose 161 H Calcium 8.6 - Imaging and Cardiology Echo: report reviewed - EKG Interpretation EKG results cardiology: personally reviewed Consult Discharge Plan - Plan Referrals: Barbra Juarez MD [Primary Care Provider] - 06/06/17 11:40 am Prince Wolf MD [Family Provider] -
[2017-06-02 10:07] LABS: INR 1.5
--- NOTE | 2017-06-02 13:50 | IR Procedure Note ---
Date of procedure: 06/02/17 Consent Obtained: Written consent Timeout: Correct patient and procedure verified, Correct site verified, Time out performed, Skin prep completed Local anesthetic: Lidocaine 1% Indications: Bilateral pleural effusions R>L Procedure Performed: Right thoracentesis Complications: None; Tolerated procedure well (Monitor on floor)
--- NOTE | 2017-06-02 18:34 | Event Note ---
Date of Encounter: 06/02/17 Time of Encounter: 18:33 Nephrology Chart Review Pt's renal function has normalized. Thank you for consulting the [facility] group. Will sign-off, but please feel free to consult as needed. Thank you.
[2017-06-02] MEDS: OxyCODONE CONC 5 MG/0.25 ML ORAL.SYG PO PRN (18:43)
[2017-06-02] MEDS: Insulin DETEMIR 100 UNIT/ML X5UNITS SQ SCH (20:50)
[2017-06-02] MEDS: traZODone 50 MG TABLET PO PRN (20:51)
[2017-06-03] MEDS: OxyCODONE CONC 5 MG/0.25 ML ORAL.SYG PO PRN ×3 (03:19→18:45)
--- NOTE | 2017-06-03 06:43 | Pulmonology Progress Note ---
Date of Encounter: 06/03/17 Time of Encounter: 06:42 Assessment and Plan (1) Pleural effusion Current Visit: Yes Status: Acute 77-year-old woman with acute respiratory failure secondary to heart failure with reduced ejection fraction complicated by severe mitral regurgitation suspected ischemic etiology with noted worsening of respiratory failure and bilateral pleural effusion secondary to cardiogenic pulmonary edema Overall patient doing a little bit better today it is reasonable to consider repeat thoracentesis on the left and then proceed to left heart catheterization per cardiology timing. Pleural fluid studies were not sent I clearly feel this is secondary to heart failure but it would be worthwhile to send off pleural fluid studies including cytology LDH glucose total protein Gram stain cholesterol albumin and serum total protein + LDH Continuation of management of decompensated heart failure per primary cardiology service For the record no clear objective evidence that this patient has chronic obstructive pulmonary disease does have risk factors of passive tobacco smoke exposure but I think that this if present is a very minor component of her respiratory failure Cont supplemental O2 to keep O2 sat around 92-94% and use continue noninvasive positive pressure ventilation on an as-needed basis for comfort or if she becomes hypoxic Overall prognosis guarded I do think it is still warranted to proceed with palliative care consultation for ongoing goals of care discussion (2) Acute systolic congestive heart failure Current Visit: Yes Status: Acute (3) Metabolic alkalosis Current Visit: Yes Status: Acute (4) Goals of care, counseling/discussion Current Visit: Yes Status: Acute (5) Acute on chronic respiratory failure with hypoxia Current Visit: Yes Status: Acute (6) Severe mitral regurgitation Current Visit: Yes Status: Acute Subjective Principal diagnosis: acute systolic CHF, Severe MR. Interval history: She feels a little better after thoracentesis yesterday oxygen requirements have gone down modestly from 13-15 L saturating 94-96% now has better color today and appears more engaged Objective PUL Vital signs: Last Vital Signs Temp 98.6 F 06/03/17 04:01 Pulse 74 06/03/17 04:01 Resp 18 06/03/17 04:01 BP 100/54 06/03/17 04:01 Pulse Ox 95 06/03/17 04:01 General appearance: no acute distress Auscultation: bilateral: diminished breath sounds Cardiovascular: regular rate and rhythm Extremities: edema (Improved from yesterday's examination) normal mental status, non-focal exam Results - Laboratory Findings CBC and BMP: 06/01/17 03:34 06/02/17 04:19 ABG ABG pH 7.50 pH Units (7.32-7.45) H 06/01/17 17:48 ABG pCO2 50 mmHg (35-45) H 06/01/17 17:48 ABG pO2 65 mmHg (85-104) L 06/01/17 17:48 ABG O2 Saturation 94 % (95-98) L 06/01/17 17:48 PT/INR, D-dimer PT 16.0 Seconds (9.4-12.1) H 06/02/17 04:25 Abnormal lab findings: Abnormal lab results RBC 2.78 M/mcL (3.82-4.97) L 06/01/17 03:34 Hgb 8.5 g/dL (11.5-15.4) L 06/01/17 03:34 Hct 26.1 % (35.3-44.9) L 06/01/17 03:34 RDW 15.6 % (11.5-14.5) H 06/01/17 03:34 PT 16.0 Seconds (9.4-12.1) H 06/02/17 04:25 APTT 67.3 Seconds (26.0-36.0) H 06/02/17 04:25 Heparin Anti-Xa, Unfract 0.81 IU/mL (0.30-0.70) H 05/30/17 00:29 ABG pH 7.50 pH Units (7.32-7.45) H 06/01/17 17:48 ABG pCO2 50 mmHg (35-45) H 06/01/17 17:48 ABG pO2 65 mmHg (85-104) L 06/01/17 17:48 ABG HCO3 39 mEq/L (21-27) H 06/01/17 17:48 ABG Total CO2 40 mEq/L (20-26) H 06/01/17 17:48 ABG O2 Saturation 94 % (95-98) L 06/01/17 17:48 ABG Base Excess 14 mEq/L (-2 to 3) H 06/01/17 17:48 Sodium 132 mEq/L (136-145) L 06/02/17 04:19 Chloride 85 mEq/L (98-109) L 06/02/17 04:19 Carbon Dioxide 36 mEq/L (19-29) H 06/02/17 04:19 BUN 25 mg/dL (7-20) H 06/02/17 04:19 BUN/Creatinine Ratio 29 (6-26) H 06/02/17 04:19 Glucose 161 mg/dL (70-99) H 06/02/17 04:19 POC Glucose 238 (58-89) H 06/02/17 20:01 Hemoglobin A1c 10.9 % (-5.6) H 05/27/17 21:48 Total Bilirubin 1.3 mg/dL (0.2-1.2) H 05/31/17 07:18 Troponin I 0.11 ng/mL (0-0.03) H* 05/28/17 16:28 B-Natriuretic Peptide 546 pg/mL (0-100) H 06/01/17 03:34 Serum Total Protein 5.7 g/dL (6.0-8.3) L 05/31/17 07:18 Albumin 2.3 g/dL (3.5-5.0) L 05/31/17 07:18 Albumin/Globulin Ratio 0.7 (1.1-2.2) L 05/31/17 07:18 Triglycerides 169 mg/dL (< 150) H 05/28/17 03:50 Cholesterol 205 mg/dL (< 200) H 05/28/17 03:50 LDL Cholesterol, Calc 141 mg/dL (0-99) H 05/28/17 03:50 VLDL Cholesterol, Calc 34 mg/dL (< 31) H 05/28/17 03:50 HDL Cholesterol 30 mg/dL (40-59) L 05/28/17 03:50 Cholesterol/HDL Ratio 6.8 (0-4.9) H 05/28/17 03:50 Urine Color Red (Yellow) A 05/31/17 04:40 Urine Clarity Turbid (Clear) A 05/31/17 04:40 Urine Protein 30 mg/dL (Neg-Trace) H 05/31/17 04:40 Urine Blood Large (Negative) H 05/31/17 04:40 Urine Nitrite Positive (Negative) A 05/31/17 04:40 Urine Bilirubin Small (Negative) H 05/31/17 04:40 Ur Leukocyte Esterase Moderate (Negative) H 05/31/17 04:40 Urine Microscopic RBC 15-30 per hpf (0-3) H 05/31/17 04:40 Urine Microscopic WBC TNTC per hpf (0-3) H 05/31/17 04:40 Ur Squamous Epith Cells Many per lpf (None-Few) H 05/31/17 04:40 Urine Bacteria Many per hpf (None-Few) H 05/31/17 04:40 - Clinical Findings Intake & Output: Intake & Output 06/02/17 06/02/17 06/03/17 15:59 23:59 07:59 Intake Total 610 / 610 472 / 472 Output Total 2550 / 2550 1450 / 1450 1200 / 1200 Balance -1940 / -1940 -978 / -978 -1200 / -1200 Weight 84.5 kg 78.4 kg Consult Discharge Plan - Plan Referrals: [facility] [Other] (The cardiology office will call patient at home with follow up appointment) Barbra Juarez MD [Primary Care Provider] - 06/06/17 11:40 am
[2017-06-03] MEDS: Budesonide/Formoterol 80/4.5 MDI IH SCH ×3 (08:00→22:10)
[2017-06-03] MEDS: Insulin LISPRO 300 UNITS/3 ML VIAL SQ SCH ×4 (08:16→22:19)
[2017-06-03] MEDS: Furosemide 40 MG/4 ML VIAL IVP SCH ×2 (08:17→16:51)
[2017-06-03] MEDS: Spironolactone 25 MG TABLET PO SCH ×2 (08:18→20:48)
[2017-06-03] MEDS: *HR* Amiodarone 200 MG TABLET PO SCH ×2 (08:18→20:48)
[2017-06-03] MEDS: metOLazone 2.5 MG TABLET PO SCH ×2 (08:18→20:48)
[2017-06-03] MEDS: *HR* LORazepam 1 MG TABLET PO PRN ×2 (08:18→18:48)
[2017-06-03] MEDS: Aspirin Enteric Coated 81 MG Tablet PO SCH (08:18)
[2017-06-03] MEDS: Nystatin POWDER 30 GM BOTTLE TP SCH ×2 (08:19→20:48)
[2017-06-03] MEDS: Ondansetron 4 MG/2 ML VIAL IVP PRN (08:28)
--- NOTE | 2017-06-03 10:08 | Internal Med Progress Note ---
<Vilma Logan - Last Filed: 06/03/17 10:09> Date of Encounter: 06/03/17 Time of Encounter: 09:59 - Assessment and plan (1) Acute on chronic respiratory failure with hypoxia Current Visit: Yes Status: Acute Assessment and plan: Due to acute congestive heart failure. Previous chest x-ray with worsening bilateral pleural effusions. Continue oxygen supplementation is needed, would recommend BiPAP if tolerated. Patient had a right thoracentesis yesterday with slight improvement in her oxygenating requirement. Plan for left thoracentesis today. Plan for left heart Today after left thoracentesis. Will continue to monitor. (2) Pleural effusion Current Visit: Yes Status: Acute Assessment and plan: Bilateral pleural effusion due to congestive heart failure. Pulmonology consult in, recommends thoracentesis by interventional radiology. Patient had right thoracentesis yesterday by interventional radiology. Chest x-ray after thoracentesis demonstrated improving pleural effusion on right with remaining pleural effusion on left with possible atelectasis of left lower lobe. Pulmonology recommends additional left thoracentesis today. Patient is amenable to procedure. (3) Acute systolic congestive heart failure Current Visit: Yes Status: Acute Assessment and plan: New diagnosis. Suspect underlying cardiac event. Cardiology following. Previously recommended improvement to respiratory status prior to any consideration of intervention. Patient has had thoracentesis with additional thoracentesis planned as previously mentioned. Possible plans for left heart cath today after left thoracentesis. Will continue to follow for cardiology recommendations and results of left heart cath. (4) Elevated troponin Current Visit: Yes Status: Acute Assessment and plan: Possible non-STEMI Cardiology following. Plan for left heart cath today after left thoracentesis. We will continue to follow for further recommendations and results. (5) Pulmonary edema Current Visit: Yes Status: Acute Assessment and plan: Acute hypoxic and hypercapnic respiratory failure secondary to acute systolic CHF exacerbation with acute pulmonary edema and pleural effusions Ejection fraction 30% Continue Lasix IV. Strict I's and O's and daily weight, keep Shook catheter Qualifiers: Chronicity: acute Qualified Code(s): J81.0 - Acute pulmonary edema (6) COPD (chronic obstructive pulmonary disease) Current Visit: Yes Status: Chronic Assessment and plan: Pulmonology following. Per review of note, patient has no evidence of COPD. She does have a history of prior smoke exposure, but no direct history of smoking herself. Continue bronchodilators as needed. Qualifiers: COPD type: emphysema Emphysema type: panlobular Qualified Code(s): J43.1 - Panlobular emphysema (7) Diabetes mellitus type 2 in obese Current Visit: Yes Status: Chronic Assessment and plan: Continue Levemir. On insulin per sliding scale. (8) Hyperlipidemia Current Visit: Yes Status: Chronic Assessment and plan: On statin. Qualifiers: Hyperlipidemia type: mixed hyperlipidemia Qualified Code(s): E78.2 - Mixed hyperlipidemia - Subjective Interval history: Patient was admitted for acute respiratory failure secondary to what appears to be acute myocardial infarction. She has had worsening respiratory status with increasing pulmonary edema and pleural effusions making any intervention for her heart challenging. She remains on high flow oxygen, did not require oxygen prior to stay. Patient had a right thoracentesis yesterday with interventional radiology. Patient seen and examined this morning at that site. Her 2 daughters are in the room with her. Pulmonology has seen and evaluated the patient this morning and is recommending a left thoracentesis. Cardiology has not yet evaluated the patient however the patient has been NPO since midnight incurred daughters who are in the room with further plans for a left heart cath later today. Patient herself states that she is feeling much improved since the thoracentesis yesterday. She feels as if her breathing has improved. She does not feel as shorter breath as she did yesterday. She still feels very weak. There are no other acute concern. - Constitutional Vitals: Temp Pulse Resp BP Pulse Ox 98.4 F 75 20 120/68 93 06/03/17 08:30 06/03/17 08:30 06/03/17 08:30 06/03/17 08:30 06/03/17 08:30 General appearance: Present: cooperative, morbidly obese, no acute distress, answers questions appropriately - Head Head exam: Present: atraumatic, normocephalic Additional comments: Nasal cannula in place - ENT ENT exam: Present: mucous membranes moist - Neck Neck exam general surgery: Present: supple, trachea midline - Respiratory Respiratory exam: Present: decreased breath sounds, rales (Left greater than right). Absent: rhonchi, stridor, wheezes - Cardiovascular Cardiovascular exam: Present: RRR, +S1, +S2 - GI/Abdominal GI/Abdominal exam: Present: normal bowel sounds, soft. Absent: firm, rebound, tenderness - Extremities Exam Extremities exam: Present: normal capillary refill, pedal edema (Trace bilaterally) - Skin Skin exam: Present: dry, intact, warm Internal Medicine: Result - Labs CBC & Chem 7: 06/01/17 03:34 06/02/17 04:19 - ABG Interpretation ABG results: ABG ABG pH 7.50 pH Units (7.32-7.45) H 06/01/17 17:48 ABG pCO2 50 mmHg (35-45) H 06/01/17 17:48 ABG pO2 65 mmHg (85-104) L 06/01/17 17:48 ABG O2 Saturation 94 % (95-98) L 06/01/17 17:48 PT/INR, D-dimer PT 16.0 Seconds (9.4-12.1) H 06/02/17 04:25 - Impressions Impressions Thoracentesis Ultrasound 06/02/17 00:00 IMPRESSION: 1. Successful ultrasound guided right thoracentesis. D/ / Daniel Angela MD / Daniel Angela MD Interpreting Provider: Daniel Angela MD Chest X-Ray 06/02/17 13:48 IMPRESSION: 1. Status post right thoracentesis with no immediate complications. 2. Cardiomegaly with vascular congestion. 3. Hazy density to the left hemithorax likely due to pleural effusion and atelectasis. D/ / Daniel Angela MD / Daniel Angela MD Interpreting Provider: Daniel Angela MD Consult Discharge Plan - Plan Referrals: [facility] [Other] (The cardiology office will call patient at home with follow up appointment) Barbra Juarez MD [Primary Care Provider] - 06/06/17 11:40 am <Jc Thompson - Last Filed: 06/03/17 18:11> Date of Encounter: 06/03/17 - Assessment and plan (1) Acute on chronic respiratory failure with hypoxia Current Visit: Yes Status: Acute (2) Acute systolic congestive heart failure Current Visit: Yes Status: Acute (3) Pleural effusion Current Visit: Yes Status: Acute (4) Afib Current Visit: Yes Status: Chronic Qualifiers: Atrial fibrillation type: paroxysmal Qualified Code(s): I48.0 - Paroxysmal atrial fibrillation (5) Diabetes mellitus type 2 in obese Current Visit: Yes Status: Chronic (6) Hyperlipidemia Current Visit: Yes Status: Chronic Qualifiers: Hyperlipidemia type: mixed hyperlipidemia Qualified Code(s): E78.2 - Mixed hyperlipidemia - Constitutional Vitals: Temp Pulse Resp BP Pulse Ox 98.0 F 74 19 92/58 95 06/03/17 16:02 06/03/17 16:02 06/03/17 16:02 06/03/17 16:02 06/03/17 16:02 Internal Medicine: Result - Labs CBC & Chem 7: 06/01/17 03:34 06/02/17 04:19 - ABG Interpretation ABG results: ABG ABG pH 7.50 pH Units (7.32-7.45) H 06/01/17 17:48 ABG pCO2 50 mmHg (35-45) H 06/01/17 17:48 ABG pO2 65 mmHg (85-104) L 06/01/17 17:48 ABG O2 Saturation 94 % (95-98) L 06/01/17 17:48 PT/INR, D-dimer PT 16.0 Seconds (9.4-12.1) H 06/02/17 04:25 - Impressions Impressions Thoracentesis Ultrasound 06/03/17 00:00 IMPRESSION: Successful ultrasound guided thoracentesis. D/ / Jorge Mary MD / Jorge Mary MD Interpreting Provider: Jorge Mary MD Chest X-Ray 06/03/17 14:33 IMPRESSION: 1. Status post left thoracentesis. No pneumothorax. 2. Significant interval improvement of the left pleural effusion and basilar opacity. 3. Small right effusion. D/ / 06/03/2017 15:05:03 Lynn Chaney MD / earl Interpreting Provider: Lynn Chaney MD - Attending Attestation I examined this patient and my medical decision-making was reviewed with the Resident Physician on 06/03/17. I agree with the documented findings, disposition and treatment plan as described except to the extent set forth below. Ms New is currently admitted for acute hypoxic resp failure due to pleural effusions and CHF. She remains moderate to high risk due to potential for worsening respiratory status. Ms. New is doing somewhat better since thoracentesis yesterday. To have another thora today on other side. To have C tomorrow due to worsening systolic function. Denies CP at this time. No fever or chills. No GI issues at this time. Exam Alert. Comfortable Mucus membranes dry Heart distant Lungs diminished Abd soft I/P 1. Hypoxic resp failure 2. Systolic CHF Further diagnoses and plan as above.
--- NOTE | 2017-06-03 10:58 | Cardiology Progress Note ---
Date of Encounter: 06/03/17 Time of Encounter: 10:15 Assessment and Plan (1) Acute systolic congestive heart failure Current Visit: Yes Status: Acute Per Cardiology: Acute decompensated congestive heart failure. Echocardiogram shows severely reduced ejection fraction at 30% and severe mitral regurgitation. Net I&O - [id number]. On IV Lasix 40mg q8hrs, aldactone and metalzone. IV NTG d/c'd yesterday due to hypotension. Good urine out-pt and had 1100ml out on right sided thoracentesis 06/02/17. Decreased O2 requirement today. on 12 L and 98% laying flat. Having left sided thoracentesis today. Landa for LHC tomorrow. Appreciate pulmonology recommendations. Continue strict I&O and daily weights. (2) Severe mitral regurgitation Current Visit: Yes Status: Acute Per Cardiology: Severe MR seen on TTE. Plan for LHC when stable. (3) Elevated troponin Current Visit: Yes Status: Acute Per Cardiology: Mild flat troponin elevation. Demand ischemia in the setting of acute systolic CHF. CP free. No cardiac rehab warranted. (4) Afib Current Visit: Yes Status: Acute Per Cardiology: Had PAF during stay and loaded with IV amiodarone. Now SR. On PO amio. On heparin gtt for AC. Will need to hold for thoracentesis. Discussed skilled nursing AC. Family/pt agreeable to AC. Will adress further after LHC. CHADS VASc=4 (CHF, DM, age, gender) Qualifiers: Atrial fibrillation type: paroxysmal Qualified Code(s): I48.0 - Paroxysmal atrial fibrillation Discussion w patient/family: The assessment and plan as outlined above was discussed with the patient and/or family members who expressed understanding and agreement. All questions were answered. Thank you for involving us in the care of your patient. Please call with any questions. Subjective Principal diagnosis: acute systolic CHF, Severe MR. Interval history: Patient with no complaints. Resting comfortably in bed. Up to the chair this morning without problems. Tires easily. Objective Vital Signs, Last 4 Hours Temp Pulse Resp BP Pulse Ox 06/03/17 08:30 98.4 F 75 20 120/68 93 06/03/17 08:28 98.4 F 75 20 120/68 93 06/03/17 07:30 98.1 F 74 14 125/73 93 General: Conversant, No Apparent Distress HEENT: Atraumatic, Normocephaly, Mucus Membranes Moist Neck: No JVD, Normal carotid pulses Cardiac: Reg Rate and Rhythm, Normal S1 and S2, Other (2/6 systolic murmur) Lungs: Normal Breath Sounds, No Wheeze, Rales, Rhonchi, Other (diminished on left) Neuro: Alert and responsive, No focal deficits noted Abdomen: Soft, Non-Tender Skin: No rashes noted on visualized skin Musculoskeletal: No Chest Wall Tenderness Extremities: No Clubbing, No Cyanosis, No Edema, Normal Pulses Results 06/01/17 03:34 06/02/17 04:19 - EKG Interpretation EKG results cardiology: personally reviewed Consult Discharge Plan - Plan Referrals: [facility] [Other] (The cardiology office will call patient at home with follow up appointment) Barbra Juarez MD [Primary Care Provider] - 06/06/17 11:40 am
--- NOTE | 2017-06-03 15:56 | IR Procedure Note ---
Date of procedure: 06/03/17 Consent Obtained: Verbal consent Timeout: Correct patient and procedure verified, Correct site verified, Time out performed, Skin prep completed Local anesthetic: Lidocaine 1% Indications: Bilateral effusions, right drained previous day. Left today. Procedure Performed: Left thoracentesis Site/Technique: Used thoracentesis kit, drained without difficulty Results/Findings: Total of 750ml out Estimated blood loss (cc): 1 Complications: None; Tolerated procedure well Post Procedure Treatment Plan: Monitoring in pts room. No ptx.
[2017-06-03] MEDS: *HR* Enoxaparin 80 MG/0.8 ML SYRINGE SQ SCH (16:50)
[2017-06-03] MEDS: Insulin DETEMIR 100 UNIT/ML X5UNITS SQ SCH (22:18)
[2017-06-04] MEDS: Furosemide 40 MG/4 ML VIAL IVP SCH ×2 (00:38→08:47)
[2017-06-04] MEDS: Ondansetron 4 MG/2 ML VIAL IVP PRN ×4 (02:43→22:15)
[2017-06-04] MEDS: *HR* Enoxaparin 80 MG/0.8 ML SYRINGE SQ SCH ×2 (06:29→18:13)
[2017-06-04 07:07] LABS: BUN/Creatinine Ratio 26 (6-26); Basophils % 0.1 %; Blood Urea Nitrogen 28 mg/dL (7-20); Carbon Dioxide 36 mEq/L (19-29); Chloride 80 mEq/L (98-109); Eosinophils # 0.1 K/mcL (0.0-0.6); Eosinophils % 0.7 %; Glucose 203 mg/dL (70-99); Hematocrit 30.9 % (35.3-44.9); Immature Granulocytes % 0.4 % (0-4); Lymphocytes # 1.6 K/mcL (0.6-4.6); Lymphocytes % 20.7 %; Mean Corpuscular HGB Conc 32.4 g/dL (31.6-35.5); Mean Corpuscular Hemoglobin 29.9 pg (28.0-33.3); Mean Corpuscular Volume 92.5 fL (83.0-100.0); Mean Platelet Volume 10.2 fL (9.4-12.4); Monocytes # 0.7 K/mcL (0.0-1.3); Monocytes % 9.1 %; Neutrophils # 5.2 K/mcL (1.6-8.9); Osmolality,Calculated 283 (280-300); Platelet Count 212 K/mcL (140-400); Potassium 4.5 mEq/L (3.5-4.5); Red Blood Count 3.34 M/mcL (3.82-4.97); Red Cell Distribution Width 15.1 % (11.5-14.5); Sodium 131 mEq/L (136-145); eGFR For African Americans > 60 (> 60); eGFR For Non-African Americans 50 (> 60)
[2017-06-04] MEDS: Budesonide/Formoterol 80/4.5 MDI IH SCH ×2 (07:43→21:54)
[2017-06-04] MEDS: Aspirin Enteric Coated 81 MG Tablet PO SCH (08:47)
[2017-06-04] MEDS: Spironolactone 25 MG TABLET PO SCH ×2 (08:47→22:03)
[2017-06-04] MEDS: *HR* LORazepam 1 MG TABLET PO PRN ×2 (08:47→22:03)
[2017-06-04] MEDS: metOLazone 2.5 MG TABLET PO SCH (08:48)
[2017-06-04] MEDS: Nystatin POWDER 30 GM BOTTLE TP SCH ×2 (08:48→22:04)
[2017-06-04] MEDS: *HR* Amiodarone 200 MG TABLET PO SCH ×2 (08:48→22:03)
[2017-06-04] MEDS: Insulin LISPRO 300 UNITS/3 ML VIAL SQ SCH ×4 (08:56→21:59)
[2017-06-04] MEDS ORDERED: Adenosine 90 MG/30 ML MLS IV ONE (09:16)
[2017-06-04 09:23] LABS: INR 1.5; Prothrombin Time 16.5 Seconds (9.4-12.1)
--- NOTE | 2017-06-04 12:01 | Internal Med Progress Note ---
<Curt Caballero - Last Filed: 06/04/17 16:37> Date of Encounter: 06/04/17 Time of Encounter: 12:01 - Assessment and plan (1) Acute on chronic respiratory failure with hypoxia Current Visit: Yes Status: Acute Assessment and plan: Acute on chronic respiratory failure secondary to acute decompensated heart failure and bilateral pleural effusions. she is currently on 4L NC oxygen down from 15L after having bilateral Thorocentesis and undergoing significant diuresis with - 14L Plan: continue weaning oxygen requirements as tolerated - Continue strict management for systolic heart failure - 2 L fluid restrictions - low sodium diet. (2) Acute systolic congestive heart failure Current Visit: Yes Status: Acute Assessment and plan: Acute decompensated CHF. Echocardiogram shows severely reduced ejection fraction at 30% and severe mitral regurgitation. Since admission she has been on 40mg IV lasix Q8hrs and is currently has a net volume - [id number]. Cardiology following with plans to do LHC with improved respiratory status Plan: - Management per Cardiology with likely LHC today - Continue management with aldactone and metalzone. - Held Lasix today with low BP, slowly elevating creatinine and clinically euvolemic. (3) Pulmonary edema Current Visit: Yes Status: Acute Assessment and plan: Significantly improved, clinically resolving. - Hold Lasix as patient is improving and demonstrating volume depletion Strict I's and O's and daily weight, keep Shook catheter Qualifiers: Chronicity: acute Qualified Code(s): J81.0 - Acute pulmonary edema (4) Pleural effusion Current Visit: Yes Status: Acute Assessment and plan: Bilateral pleural effusion due to congestive heart failure. - Patient underwent b/l thorocentesis with significant improvements in her symptoms. - Follow up with Pulmonology outpatient (5) Elevated troponin Current Visit: Yes Status: Acute Assessment and plan: Possible non-STEMI Cardiology following. Plan for left heart cath today. - Appreciate further recommendations. (6) Diabetes mellitus type 2 in obese Current Visit: Yes Status: Chronic Assessment and plan: Continue Levemir. On insulin per sliding scale. (7) Hyperlipidemia Current Visit: Yes Status: Chronic Assessment and plan: On statin. patient would benefit from improvements in diet and exercise Qualifiers: Hyperlipidemia type: mixed hyperlipidemia Qualified Code(s): E78.2 - Mixed hyperlipidemia (8) DVT prophylaxis Current Visit: Yes Status: Acute Assessment and plan: Lovenox theraputic dosing. - Subjective Interval history: Patient seen and evaluated at patient bedside this morning. She is doing well and tolerating 4L NC oxygen down from 15L. She feels much improved after her thorocentesis yesterday and tolerated the procedure well. She feels as if she is progressing back to her normal self. She is awaiting [facility] today and has been NPO. - Constitutional Vitals: Temp Pulse Resp BP Pulse Ox 98.3 F 73 18 97/59 96 06/04/17 11:14 06/04/17 11:14 06/04/17 11:14 06/04/17 11:14 06/04/17 11:14 General appearance: Present: cooperative, morbidly obese, no acute distress, answers questions appropriately - Head Head exam: Present: atraumatic, normocephalic - Eye Eye exam: Present: PERRL, conjuntiva pink, sclera anicteric Pupils: Present: PERRL - Neck Neck exam general surgery: Present: supple, trachea midline. Absent: lymphadenopathy - Respiratory Respiratory exam: Present: CTAB. Absent: accessory muscle use, rales, rhonchi, wheezes - Cardiovascular Cardiovascular exam: Present: RRR, systolic murmur. Absent: diastolic murmur, gallop, rubs - GI/Abdominal GI/Abdominal exam: Present: normal bowel sounds, soft, no peritoneal signs. Absent: distended, tenderness - Extremities Exam Extremities exam: Present: warm, radial pulses palpable and symmetrical. Absent : calf tenderness, cyanotic, pedal edema - Neurological Exam Neurological exam: Present: CN II-XII intact, oriented X3, no focal deficits. Absent: pronater drift, facial droop, speech deficit - Skin Skin exam: Present: dry, intact Internal Medicine: Result - Labs CBC & Chem 7: 06/04/17 06:23 06/04/17 06:23 Labs: Short CBC 06/04/17 Range/Units 06:23 WBC 7.6 (4.3-11.1) K/mcL Hgb 10.0 L D (11.5-15.4) g/dL Hct 30.9 L (35.3-44.9) % Plt Count 212 (140-400) K/mcL Neutrophils # 5.2 (1.6-8.9) K/mcL BMP 06/04/17 06:23 Sodium 131 L Potassium 4.5 Chloride 80 L Carbon Dioxide 36 H BUN 28 H Creatinine 1.07 Glucose 203 H Calcium 9.0 - ABG Interpretation ABG results: ABG ABG pH 7.50 pH Units (7.32-7.45) H 06/01/17 17:48 ABG pCO2 50 mmHg (35-45) H 06/01/17 17:48 ABG pO2 65 mmHg (85-104) L 06/01/17 17:48 ABG O2 Saturation 94 % (95-98) L 06/01/17 17:48 PT/INR, D-dimer PT 16.5 Seconds (9.4-12.1) H 06/04/17 09:12 - Impressions Impressions Thoracentesis Ultrasound 06/03/17 00:00 IMPRESSION: Successful ultrasound guided thoracentesis. D/ / Jorge Mary MD / Jorge Mary MD Interpreting Provider: Jorge Mary MD Chest X-Ray 06/03/17 14:33 IMPRESSION: 1. Status post left thoracentesis. No pneumothorax. 2. Significant interval improvement of the left pleural effusion and basilar opacity. 3. Small right effusion. D/ / 06/03/2017 15:05:03 [facility] Provider: Lynn Chaney MD Consult Discharge Plan - Plan Referrals: [facility], Cardiolgy [Other] (The cardiology office will call patient at home with follow up appointment) Barbra Juarez MD [Primary Care Provider] - 06/13/17 1:30 pm <Jc Thompson - Last Filed: 06/04/17 18:13> Date of Encounter: 06/04/17 - Assessment and plan (1) Acute on chronic respiratory failure with hypoxia Current Visit: Yes Status: Acute (2) Acute systolic congestive heart failure Current Visit: Yes Status: Acute (3) Pleural effusion Current Visit: Yes Status: Acute (4) Afib Current Visit: Yes Status: Chronic Qualifiers: Atrial fibrillation type: paroxysmal Qualified Code(s): I48.0 - Paroxysmal atrial fibrillation (5) Diabetes mellitus type 2 in obese Current Visit: Yes Status: Chronic (6) Hyperlipidemia Current Visit: Yes Status: Chronic Qualifiers: Hyperlipidemia type: mixed hyperlipidemia Qualified Code(s): E78.2 - Mixed hyperlipidemia - Constitutional Vitals: Temp Pulse Resp BP Pulse Ox 98.3 F 78 20 86/50 96 06/04/17 11:30 06/04/17 17:03 06/04/17 17:03 06/04/17 17:03 06/04/17 17:03 Internal Medicine: Result - Labs CBC & Chem 7: 06/04/17 06:23 06/04/17 06:23 Labs: Short CBC 06/04/17 Range/Units 06:23 WBC 7.6 (4.3-11.1) K/mcL Hgb 10.0 L D (11.5-15.4) g/dL Hct 30.9 L (35.3-44.9) % Plt Count 212 (140-400) K/mcL Neutrophils # 5.2 (1.6-8.9) K/mcL BMP 06/04/17 06:23 Sodium 131 L Potassium 4.5 Chloride 80 L Carbon Dioxide 36 H BUN 28 H Creatinine 1.07 Glucose 203 H Calcium 9.0 - ABG Interpretation ABG results: ABG ABG pH 7.50 pH Units (7.32-7.45) H 06/01/17 17:48 ABG pCO2 50 mmHg (35-45) H 06/01/17 17:48 ABG pO2 65 mmHg (85-104) L 06/01/17 17:48 ABG O2 Saturation 94 % (95-98) L 06/01/17 17:48 PT/INR, D-dimer PT 16.5 Seconds (9.4-12.1) H 06/04/17 09:12 - Attending Attestation I examined this patient and my medical decision-making was reviewed with the Resident Physician on 06/04/17. I agree with the documented findings, disposition and treatment plan as described except to the extent set forth below. Ms New is currently admitted for hypoxic resp failure due to fluid overload. She is to have [facility] today. She remains moderate to high risk due to potential for worsening cardiac and respiratory status. Ms New feels OK today. She is to have [facility]. No pain. Breathing improving with fluid removal. No fever or chills. No GI issues. Exam Alert. Comfortable Mucus membranes dry Heart distant Lungs diminished No edema I/P 1. Hypoxia 2. CHF 3. Pleural effusions Further diagnoses and plan as above.
--- NOTE | 2017-06-04 12:33 | Event Note ---
Date of Encounter: 06/04/17 Time of Encounter: 10:00 - Cardiology Event Note Patient resting in bed. Some nausea this morning and is receiving ant-emetic. Denies chest pain. S/p bilateral thoracentesis. 06/02/17 with 1100ML removed from right side. 650 ml removed from left side. Oxygen decreased to 3L NC today and spo2 94%. Excoriation in abdominal fold significantly improved. R/B/A of C reviewed. Patient and family agree with plan. Scheduled for C later this afternoon.
[2017-06-04] MEDS ORDERED: Heparin 1,000 UNITS/500 mL NS 500 ML ONE (13:38)
[2017-06-04] MEDS ORDERED: 0.9 % Sodium Chloride 1,000 ML ONE ×2 (13:38→14:12)
[2017-06-04] MEDS ORDERED: *HR* Heparin 10,000 UNIT/10 ML VIAL ONE (13:38)
[2017-06-04] MEDS ORDERED: Nitroglycerin 1,000 MCG/10 ML VIAL IV ONE (13:38)
[2017-06-04] MEDS ORDERED: *HR* Midazolam HCl 2 MG/2 ML VIAL ONE (14:27)
--- NOTE | 2017-06-04 14:28 | Pre-Sedation Evaluation ---
Pre-sedation evaluation - Pre-sedation checklist Date of procedure: 06/04/17 Procedure: [facility] Recent Vitals: Last Vital Signs Temp 98.3 F 06/04/17 11:30 Pulse 73 06/04/17 11:30 Resp 18 06/04/17 11:30 BP 97/59 06/04/17 11:30 Pulse Ox 96 06/04/17 11:30 H&P (including ROS) documented in medical record: Yes Previous reaction to sedatives/anesthetics: Yes; explain in comment Dietary Status: NPO after Midnight Airway Assessment: Patient can open mouth completely, TMJ function normal Dentition: No loose teeth or bridges Possible difficult airway: No ASA Classification *see protocol: CLASS IV-Severe systemic disease/constant threat to pt's life Plan of Care: Pt appropriate candidate for procedure/moderate/conscious sedation , Risks/benefits of procedure/sedation discussed w/ patient/family, If not NPO; Risk of intake outweiged by necessity to perform procedure
[2017-06-04] MEDS ORDERED: *HR* Bivalirudin 250 MG VIAL IVC ONE (15:10)
--- NOTE | 2017-06-04 15:52 | Invasive Diagnostic Lab Proc ---
Name: Quyen New Date of Study: 06/04/2017 Date: 1940 Ht: 63.0in Medical Record#: [id number] Age: 77 Wt: 165.35lb Gender: Female BSA: 1.78 Order #: [id number] BMI: 29.3 Physicians Procedure Physician: Dimas Ortiz DO Referring MD: Referring MD: Staff Name Position Time In Sites, Maida RT (R) Monitor 02:30 PM Eliseo Coates RT (R) Scrub 02:30 PM Sim Medina RN Surgical Product Sales Consultant 02:30 PM Indications Indication Non-Stemi Procedures Performed Procedure L HRT ARTERY/VENTRICLE ANGIO CARDIOVERSION, EXTERNAL IV Doppler BLD Flow 1st Vessel Pre-Procedure Checklist Informed consent is complete signed and on chart. H&P is on chart. ID band is on and ID verified with patient. Patient NPO for procedure The procedure was described for the patient and questions were answered. Blood Pressure: 112/62 ECG is on chart. Rhythm: NSR Plan of Care Patient will tolerate the procedure without complications. Adequate level of comfort will be maintained. Hemodynamics will remain stable Patient will recover from procedure without complications. Respiratory function will be maintained. Cardiac rhythm will remain stable. Patient temperature will be maintained. Patient and/or family have verbalized understanding of the procedure. Patient Education Chief Complaint/Reason for Test: Cardiac Cath Developmental Category: Geriatric (65+ years) Developmentally Appropriate for Age: Yes Learning Barriers: None Education Needs: Plan of Care Education Method: Verbal Information Taught: Cardiac Cath Educational Evaluation: Able to repeat information Intravenous Access Time IV Size Location DC'd Fluid/Drip Rate Units RN 20g 1 07/03" Patent On Arrival Lt Antecubital 0.9NaCl 25 ml/hr Sim Medina RN Allergies No Known Allergies Vital Signs Time BP (mmHg) HR (bpm) O2 Sat. RR (bpm) LOC 02:31 PM 112 / 62 79 100 % 16 5 = Fully awake and oriented or at pre-proc level 02:32 PM / % 5 = Fully awake and oriented or at pre-proc level 02:32 PM / % 5 = Fully awake and oriented or at pre-proc level 02:47 PM / % 4 = Oriented but drowsy 03:02 PM / % 5 = Fully awake and oriented or at pre-proc level 02:30 PM 112 / 62 78 99 % 27 02:35 PM 114 / 61 79 100 % 22 02:40 PM 109 / 62 80 99 % 22 02:45 PM 93 / 52 76 96 % 35 02:50 PM 97 / 55 75 100 % 20 02:55 PM 94 / 54 77 100 % 13 03:00 PM 96 / 53 77 100 % 20 03:05 PM 98 / 51 79 100 % 27 03:10 PM 101 / 54 80 100 % 23 03:15 PM 92 / 55 81 100 % 18 03:20 PM 83 / 41 82 97 % 15 03:22 PM 97 / 59 83 94 % 27 03:25 PM 73 / 45 83 90 % 22 03:29 PM 120 / 105 83 87 % 19 03:35 PM 100 / 69 82 88 % Procedural Medications Time Medication Dose Units Method Given By 02:32 PM Oxygen 6 L/min Oxy Mask Sim Medina RN 02:32 PM Versed 2 mg Intravenous Sim Medina RN 02:39 PM Lidocaine 2% 9 ml Subcutaneous Dimas Ortiz DO 03:13 PM Angiomax 0.75mg/kg bolus: 20 ml Intravenous Sim Medina RN 03:13 PM Angiomax 1.75mg/kg/hr: 47 ml Intravenous Sim Medina RN 03:18 PM Adenosine 999 ml Intravenous Sim Medina RN 03:20 PM Adenosine dc'd Intravenous Sim Medina RN 03:23 PM Adenosine 999 ml Intravenous MARVA Coker RN ASA Classification: CLASS II- Mild systemic disease (i.e. well-controlled diabetes, hypertension, asthma, cigarette smoking) Tyrell Score Preprocedure Postprocedure Activity 2- Moves 4 extremities sustained head lift Activity 2- Moves 4 extremities sustained head lift Circulation 2- SBP +/= 20 points of pre-anesthetic level Circulation 2- SBP +/= 20 points of pre-anesthetic level Consciousness 2- Awake and alert oriented x 3 Consciousness 2- Awake and alert oriented x 3 O2 Saturation 2- Able to maintain O2 satruation of 92% on room air O2 Saturation 2- Able to maintain O2 satruation of 92% on room air Respiratory 2- Able to deep breathe and cough well Respiratory 2- Able to deep breathe and cough well Total Score 10 Total Score 10 Contrast Agent: Isovue Diagnostic Contrast: 200 ml Total Contrast: 200 ml Fluoro Dose: 1575 mGy Procedure Log Time Note Enter By 01:50 PM CathStat 02:29 PM Vitals capture started with the following parameters, Patient=Adult, Interval=5 min, Initial Rreqwgug=767 mmHg, Deflation Rate=5 mmHg, Cuff placed on Left Arm 02:30 PM Pt arrived to computer lab para professional 1 at 14:30 tsites 02:30 PM Maida Lora RT (R) Position: Monitor Time in: 14:30 tsites 02:30 PM Eliseo Coates RT (R) Position: Scrub Time in: 14:30 tsites 02:30 PM Sim Medina RN Position: Surgical Product Sales Consultant Time in: 14:30 tsites 02:30 PM Patient charges- Angio tray pack, Navilyst 3mm J, Pulse Oximetry and ACIST tubing and transducer tsites 02:30 PM HR=78 bpm, YOVN=968/62 mmhg, SpO2=99.0 %, Resp=27 B/min 02:30 PM Case Delayed No tsites 02:30 PM Physician arrived 14:30 tsites 02:30 PM Meet and greet completed tsites 02:30 PM Sign in performed according to hospital policy. tsites 02:30 PM Procedure start 14:30 tsites 02:32 PM Time: 14:32 Oxygen on at 6 L/min per Oxy Mask by Sim Medina RN tsites 02:32 PM Time: 14:32 Versed 2 mg Intravenous Given by Sim Medina RN tsites 02:32 PM Time: 14:32 Patient comfortable and pain free: Yes tsites 02:32 PM Time: 14:32LOC: 5 = Fully awake and oriented or at pre-proc level tsites 02:32 PM Clinical Presentation: Unstable angina tsites 02:32 PM Hair removed from procedure site in holding area using clippers. Bilateral groin prepped with Chloraprep by Marcy Almeida RT (R), safety strap applied then patient was draped. Skin intact. tsites 02:34 PM Pressure channel 2 zeroed. 02:35 PM Recorded ECG: HR=80 Condition=Condition 1 02:35 PM HR=79 bpm, FKCZ=808/61 mmhg, KsD1=659.0 %, Resp=22 B/min 02:39 PM Time out performed according to hospital policy tsites 02:40 PM Time: 14:39 9 ml Lidocaine 2% to right groin Subcutaneous Given by Dimas Ortiz, DO tsites 02:40 PM HR=80 bpm, HLGJ=528/62 mmhg, SpO2=99.0 %, Resp=22 B/min 02:41 PM Micro-Introducer Kit utilized for sheath placement tsites 02:41 PM Access obtained by percutaneous puncture. 6Fr 10cm Terumo [place] sheath placed in right Femoral artery. [id number] tsites 02:42 PM 6Fr FR 4 catheter inserted over the wire DN tsites 02:42 PM 0.035 145cm Navilyst 3mmJ wire [id number] tsites 02:43 PM Recorded Pressure: LV, HR=77, Condition=Condition 1 (Left Ventricle) LV 95/3/79 02:43 PM Catheter selectively placed in left ventricle tsites 02:43 PM Recorded Pressure: LV, Ao, HR=88, Condition=Condition 1 (Left Ventricle) LV 73/-7/-4, (Aorta) Ao 93/15/56 02:44 PM hand injection angiogram of left Ventricle complete: total of 10 mls tsites 02:45 PM RCA angiography performed in multiple views. tsites 02:45 PM Recorded Pressure: Ao, HR=77, Condition=Condition 1 (Aorta) Ao 79/38/54 02:45 PM HR=76 bpm, NIBP=93/52 mmhg, SpO2=96 %, Resp=35 B/min 02:45 PM wire reinsertred catheter removed tsites 02:46 PM LCA angiography performed in multiple views. tsites 02:47 PM Time: 14:32LOC: 5 = Fully awake and oriented or at pre-proc level tsites 02:47 PM Time: 14:32 Patient comfortable and pain free: Yes tsites 02:48 PM wire reinsertred catheter removed tsites 02:48 PM 6Fr XB LAD 3.5 [place] Bright-Tip guide catheter was used to cannulate the PCI vessel successfully. reused? No tsites 02:50 PM HR=75 bpm, NIBP=97/55 mmhg, OvL8=432.0 %, Resp=20 B/min 02:51 PM wire reinsertred catheter removed tsites 02:51 PM 6Fr MPA [place] Bright-Tip guide catheter was used to cannulate the PCI vessel successfully. reused? No tsites 02:55 PM HR=77 bpm, NIBP=94/54 mmhg, AuR6=222 %, Resp=13 B/min 02:56 PM EKG changes vtach tsites 02:56 PM Defibrillated at 200 Joules tsites 02:56 PM pt stable vitals stable tsites 02:56 PM wire reinsertred catheter removed tsites 02:57 PM 6Fr AL 2 Runway guide catheter was used to cannulate the PCI vessel successfully. reused? No tsites 02:57 PM Recorded Pressure: Ao, HR=79, Condition=Condition 1 (Aorta) Ao 107/54/75 03:00 PM HR=77 bpm, NIBP=96/53 mmhg, ZyG3=811 %, Resp=20 B/min 03:02 PM Time: 14:47 Patient comfortable and pain free: Yes tsites 03:02 PM Time: 14:47LOC: 4 = Oriented but drowsy tsites 03:03 PM LCA angiography performed in multiple views. tsites 03:03 PM 6Fr JR 4 Runway guide catheter was used to cannulate the PCI vessel successfully. reused? No tsites 03:05 PM HR=79 bpm, NIBP=98/51 mmhg, FjN2=240 %, Resp=27 B/min 03:09 PM LCA angiography performed in multiple views. tsites 03:10 PM HR=80 bpm, RKRX=273/54 mmhg, XtY1=096 %, Resp=23 B/min 03:13 PM .014 Choice Extra Support 300cm guide wire across target lesion- successful. reused? No tsites 03:13 PM Time: 15:13 Angiomax 0.75mg/kg bolus: 20 ml Intravenous Given by Sim Medina RN [place] pump tsites 03:13 PM Time: 15:13 Angiomax 1.75mg/kg/hr: 47 ml Intravenous Given by Sim Medina RN [place] pump tsites 03:14 PM Acist Navvus FFr catheter advanced to target lesion. tsites 03:15 PM HR=81 bpm, NIBP=92/55 mmhg, VeI3=271 %, Resp=18 B/min 03:16 PM FFR Measurement: 0.92 before adenosine tsites 03:18 PM Time: 15:02LOC: 5 = Fully awake and oriented or at pre-proc level tsites 03:18 PM Time: 15:02 Patient comfortable and pain free: Yes tsites 03:18 PM Time: 15:18 Adenosine 999 ml administered Intravenous byJD. Coker tsites 03:20 PM HR=82 bpm, NIBP=83/41 mmhg, SpO2=97 %, Resp=15 B/min 03:20 PM Time: 15:20 Adenosine dc'dy James Coker tsites 03:22 PM NIBP STAT measurement started. 03:22 PM Pressure channel 2 zeroed. 03:22 PM HR=83 bpm, NIBP=97/59 mmhg, SpO2=94 %, Resp=27 B/min 03:24 PM Time: 15:23 Adenosine 999 ml administered Intravenous by MARVA Coker RN tsites 03:25 PM HR=83 bpm, NIBP=73/45 mmhg, SpO2=90 %, Resp=22 B/min 03:25 PM FFR Measurement: 0.89 tsites 03:26 PM Flow Wire removed intact tsites 03:27 PM Bolus angiogram of right Femoral complete: 2 ml/sec for a total of 4 mls tsites 03:27 PM Procedure completed at 15:27 tsites 03:28 PM Sign out completed: Radiation Dose 1575 mGy Fluoro Time: 15.3 Isovue 370 - 200ml contrast 200 ml given by Dimas Ortiz DO. Complications: NoneCardiac Rehab Consult needed: NoConfirmed administered medications: Yes tsites 03:28 PM Isovue 370 - 200ml,1 Bottle(s) used. tsites 03:28 PM Arterial sheath pulled, Mynx closure device used and was Successful S/N. tsites 03:29 PM Estimated Blood Loss: minimal tsites 03:29 PM Post ECG NSR tsites 03:29 PM NIBP STAT measurement started. 03:29 PM HR=83 bpm, ODIN=772/105 mmhg, SpO2=87 %, Resp=19 B/min 03:30 PM Post Blood Pressure 120/105 tsites 03:30 PM 15:30 Post Pulses Bilateral DP & PT 1+ tsites 03:30 PM Information taught Cardiac Cath, IVUS/Flowire, and Mynx tsites 03:30 PM Education needs Procedure, Plan of Care, and Responsibilities of Patient in Care tsites 03:30 PM Learning barriers :None tsites 03:34 PM Education Methods Verbal tsites 03:34 PM Education evaluation Able to repeat information tsites 03:34 PM Site status No bleeding/hematoma - Rt Groin as reported by Eliseo Coates RT (R) at 15:34 tsites 03:34 PM Opsite applied tsites 03:35 PM HR=82 bpm, MGXD=086/69 mmhg, SpO2=88 % 03:37 PM Report given to sarah BREWSTER Pt taken to 2N Room #10. 15:37 tsites 03:37 PM Delay to floor No tsites 03:37 PM Patient out of room: 15:37 tsites 03:37 PM Family placed in consult room. tsites 03:37 PM Coronary Dominance: right tsites 03:37 PM Lesion found in Proximal RCA. Pre Stenosis: 50 Pre SIMON Flow: tsites 03:38 PM Lesion found in Distal RCA. Pre Stenosis: 60 Pre SIMON Flow: tsites 03:38 PM Lesion found in LMCA. Pre Stenosis: 100 Pre SIMON Flow: tsites 03:38 PM Lesion found in Proximal LAD. Pre Stenosis: 100 Pre SIMON Flow: tsites 03:38 PM Lesion found in Proximal Circumflex. Pre Stenosis: 40 Pre SIMON Flow: tsites 03:38 PM Left Main Coronary Artery with 100% stenosis tsites 03:38 PM Proximal Left Anterior Descending Coronary Artery with 100% stenosis. If graft is supplying this territory, 0 % stenosis. tsites 03:38 PM Circumflex, Obtuse Marginal, Left Posterior Descending, and Left Posterolateral Coronary Arteries with 40 % stenosis. If graft is supplying this area, 0 % stenosis tsites 03:38 PM Right Coronary, Right Posterior Descending Arteries with Right Posterolateral and Acute Marginal branches with 60 % stenosis. If graft is supplying this area, 0 % stenosis tsites Complications Complication None Hemodynamics Pressures Site Systolic/A Wave Diastolic/V Wave Mean LV 95 3 79 LV 73 -7 -4 AO 93 15 56 AO 79 38 54 AO 107 54 75 Post Procedure Information Blood Pressure: 120/105 mmHg Rhythm: NSR Post procedural instructions were given Closure Device Time Device Success/Fail 06/04/2017 3:39:00 PM MynxGrip Successful Site Checks Time Location Status Staff Sheath In? Note 03:34 PM Rt Groin No bleeding/hematoma Eliseo Coates RT (R) Pulses Time Site Pre-Procedure Post-Procedure Note Bilateral DP & PT 1+ Bilateral radial 2+ 3:30:00 PM Bilateral DP & PT 1+ Updated by Maida Lora RT (R) on 06/04/2017 3:44:07 PM Maida Lora RT electronically signed on 06/04/2017 3:44:45 PM with status of Final
[2017-06-04] MEDS: 0.9 % Sodium Chloride 1,000 ML IVC SCH (16:00)
[2017-06-04] MEDS: OxyCODONE CONC 5 MG/0.25 ML ORAL.SYG PO PRN (22:03)
[2017-06-04] MEDS: Insulin DETEMIR 100 UNIT/ML X5UNITS SQ SCH (23:23)
[2017-06-05 04:34] LABS: Basophils % 0.2 %; Eosinophils % 0.1 %; Hematocrit 30.4 % (35.3-44.9); Hemoglobin 9.8 g/dL (11.5-15.4); Immature Granulocytes % 0.3 % (0-4); Lymphocytes # 0.8 K/mcL (0.6-4.6); Lymphocytes % 8.8 %; Mean Corpuscular HGB Conc 32.2 g/dL (31.6-35.5); Mean Platelet Volume 10.6 fL (9.4-12.4); Monocytes # 0.8 K/mcL (0.0-1.3); Monocytes % 8.8 %; Neutrophils # 7.5 K/mcL (1.6-8.9); Platelet Count 220 K/mcL (140-400); Red Blood Count 3.27 M/mcL (3.82-4.97); Segmented Neutrophils % 81.8 %
[2017-06-05 04:49] LABS: Albumin 2.4 g/dL (3.5-5.0); Albumin/Globulin Ratio 0.5 (1.1-2.2); Bilirubin,Total 1.1 mg/dL (0.2-1.2); Calcium 8.7 mg/dL (8.6-10.8); Globulin 4.5 g/dL (2.4-3.5); Total Protein 6.9 g/dL (6.0-8.3)
[2017-06-05 04:51] LABS: Potassium 4.5 mEq/L (3.5-4.5)
[2017-06-05] MEDS: *HR* Enoxaparin 80 MG/0.8 ML SYRINGE SQ SCH ×2 (07:02→17:27)
[2017-06-05] MEDS: 0.9 % Sodium Chloride 1,000 ML IVC SCH (07:03)
[2017-06-05] MEDS: Budesonide/Formoterol 80/4.5 MDI IH SCH ×2 (08:14→20:16)
[2017-06-05] MEDS: metOLazone 2.5 MG TABLET PO SCH (08:25)
[2017-06-05] MEDS: Spironolactone 25 MG TABLET PO SCH (08:25)
[2017-06-05] MEDS: Aspirin Enteric Coated 81 MG Tablet PO SCH (08:25)
[2017-06-05] MEDS: *HR* Amiodarone 200 MG TABLET PO SCH (08:25)
[2017-06-05] MEDS: Insulin LISPRO 300 UNITS/3 ML VIAL SQ SCH ×4 (08:32→20:40)
[2017-06-05] MEDS ORDERED: Furosemide 40 MG/4 ML VIAL IVP SCH (09:00)
[2017-06-05] MEDS: Nystatin POWDER 30 GM BOTTLE TP SCH (09:26)
[2017-06-05] MEDS: *HR* LORazepam 1 MG TABLET PO PRN (09:57)
--- NOTE | 2017-06-05 10:04 | Internal Med Progress Note ---
<Vilma Logan - Last Filed: 06/05/17 10:05> Date of Encounter: 06/05/17 Time of Encounter: 10:04 - Assessment and plan (1) Acute on chronic respiratory failure with hypoxia Current Visit: Yes Status: Acute Assessment and plan: Acute on chronic respiratory failure secondary to acute decompensated heart failure and bilateral pleural effusions. she is currently on 4L NC oxygen down from 15L after having bilateral Thorocentesis and undergoing significant diuresis with - 14L Plan: continue weaning oxygen requirements as tolerated - Continue strict management for systolic heart failure - 2 L fluid restrictions - low sodium diet. (2) Pleural effusion Current Visit: Yes Status: Acute Assessment and plan: Bilateral pleural effusion due to congestive heart failure. - Patient underwent b/l thorocentesis with significant improvements in her symptoms. - Follow up with Pulmonology outpatient (3) Acute systolic congestive heart failure Current Visit: Yes Status: Acute Assessment and plan: Acute decompensated CHF. Echocardiogram shows severely reduced ejection fraction at 30% and severe mitral regurgitation. Since admission she has been on 40mg IV lasix Q8hrs and is currently has a net volume - [id number]. Cardiology following. Plan: - Management per Cardiology. Patient had left her cast with severe to vessel disease with 100% stenosis of the left main coronary artery and 100% stenosis of the proximal left anterior descending artery with collaterals to the left anterior descending artery from the right coronary artery visualized. Cardiology is recommending medical management only - Continue management with aldactone and metalzone. - Patient is clinically bulimic, will continue to hold Lasix (4) Elevated troponin Current Visit: Yes Status: Acute Assessment and plan: Possible non-STEMI Cardiology following. Left heart catheterization with severe to vessel disease as previously discussed, recommended medical management. - Appreciate further recommendations. (5) Pulmonary edema Current Visit: Yes Status: Acute Assessment and plan: Significantly improved, clinically resolving. - Patient received Lasix and is currently clinically you bulimic. Will continue to hold Lasix. - Has had thoracentesis as previously discussed Strict I's and O's and daily weight, keep Shook catheter Qualifiers: Chronicity: acute Qualified Code(s): J81.0 - Acute pulmonary edema (6) COPD (chronic obstructive pulmonary disease) Current Visit: Yes Status: Chronic Assessment and plan: Pulmonology following. Per review of note, patient has no evidence of COPD. She does have a history of prior smoke exposure, but no direct history of smoking herself. Continue bronchodilators as needed. Qualifiers: COPD type: emphysema Emphysema type: panlobular Qualified Code(s): J43.1 - Panlobular emphysema (7) Diabetes mellitus type 2 in obese Current Visit: Yes Status: Chronic Assessment and plan: Continue Levemir. On insulin per sliding scale. (8) Hyperlipidemia Current Visit: Yes Status: Chronic Assessment and plan: On statin. patient would benefit from improvements in diet and exercise Qualifiers: Hyperlipidemia type: mixed hyperlipidemia Qualified Code(s): E78.2 - Mixed hyperlipidemia - Subjective Interval history: Patient was admitted for acute respiratory failure secondary to what appears to be acute myocardial infarction. She had worsening respiratory status with increasing pulmonary edema and pleural effusions making any intervention for her heart challenging. She has had bilateral thoracentesis performed. She also had a left heart cast performed with evidence of severe to vessel disease with recommendation for medical management only. She has been weaned from oxygen down to her baseline requirement of 2 leaders via nasal cannula. She has not been up and around walking with physical therapy. Patient seen and examined this morning at that site. Her 2 daughters are in the room with her. She states she is not interested in eating anything this morning as she does not like eggs or anything on the tray in front of her which is offered to her. She states she does not feel like getting up and walking around with physical therapy. Family and broom recognizes that they would be unable to assist her fully at home. She is currently refusing consideration to go to a group home facility. Overall she is feeling improved with her breathing. She has no other concerns at this time - Constitutional Vitals: Temp Pulse Resp BP Pulse Ox 99.7 F H 81 16 105/75 91 06/05/17 07:02 06/05/17 07:02 06/05/17 08:14 06/05/17 08:14 06/05/17 08:14 General appearance: Present: cooperative, morbidly obese, no acute distress, answers questions appropriately - Head Head exam: Present: atraumatic, normocephalic Additional comments: Nasal cannula in place - ENT ENT exam: Present: mucous membranes moist - Neck Neck exam general surgery: Present: supple, trachea midline - Respiratory Respiratory exam: Present: CTAB. Absent: rales, rhonchi, stridor, wheezes - Cardiovascular Cardiovascular exam: Present: RRR, +S1, +S2. Absent: gallop, rubs - GI/Abdominal GI/Abdominal exam: Present: soft. Absent: distended, firm, guarding, rebound, tenderness - Extremities Exam Extremities exam: Present: normal capillary refill - Psychiatric Psychiatric exam: Present: flat affect - Skin Skin exam: Present: dry, warm Internal Medicine: Result - Labs CBC & Chem 7: 06/05/17 03:31 06/05/17 03:31 Labs: Short CBC 06/05/17 Range/Units 03:31 WBC 9.2 (4.3-11.1) K/mcL Hgb 9.8 L (11.5-15.4) g/dL Hct 30.4 L (35.3-44.9) % Plt Count 220 (140-400) K/mcL Neutrophils # 7.5 (1.6-8.9) K/mcL BMP 06/05/17 03:31 Sodium 133 L Potassium 4.5 Chloride 85 L Carbon Dioxide 33 H BUN 30 H Creatinine 1.11 Glucose 156 H Calcium 8.7 Liver Function 06/05/17 Range/Units 03:31 Total Bilirubin 1.1 (0.2-1.2) mg/dL AST 40 H (5-34) Units/L ALT 23 (0-55) Units/L Alkaline Phosphatase 33 L (38-126) Units/L Albumin 2.4 L (3.5-5.0) g/dL - ABG Interpretation ABG results: ABG ABG pH 7.50 pH Units (7.32-7.45) H 06/01/17 17:48 ABG pCO2 50 mmHg (35-45) H 06/01/17 17:48 ABG pO2 65 mmHg (85-104) L 06/01/17 17:48 ABG O2 Saturation 94 % (95-98) L 06/01/17 17:48 PT/INR, D-dimer PT 16.5 Seconds (9.4-12.1) H 06/04/17 09:12 Consult Discharge Plan - Plan Referrals: [facility] [Other] (The cardiology office will call patient at home with follow up appointment) Barbra Juarez MD [Primary Care Provider] - 06/13/17 1:30 pm <Jc Thompson - Last Filed: 06/05/17 18:23> Date of Encounter: 06/05/17 - Assessment and plan (1) Acute on chronic respiratory failure with hypoxia Current Visit: Yes Status: Acute (2) Acute systolic congestive heart failure Current Visit: Yes Status: Acute (3) Pleural effusion Current Visit: Yes Status: Acute (4) Afib Current Visit: Yes Status: Chronic Qualifiers: Atrial fibrillation type: paroxysmal Qualified Code(s): I48.0 - Paroxysmal atrial fibrillation (5) Diabetes mellitus type 2 in obese Current Visit: Yes Status: Chronic (6) Hyperlipidemia Current Visit: Yes Status: Chronic Qualifiers: Hyperlipidemia type: mixed hyperlipidemia Qualified Code(s): E78.2 - Mixed hyperlipidemia (7) CAD (coronary artery disease) Current Visit: Yes Status: Acute - Constitutional Vitals: Temp Pulse Resp BP Pulse Ox 99.3 F 80 16 114/60 95 06/05/17 16:01 06/05/17 16:01 06/05/17 16:01 06/05/17 16:01 06/05/17 16:01 Internal Medicine: Result - Labs CBC & Chem 7: 06/05/17 03:31 06/05/17 03:31 Labs: Short CBC 06/05/17 Range/Units 03:31 WBC 9.2 (4.3-11.1) K/mcL Hgb 9.8 L (11.5-15.4) g/dL Hct 30.4 L (35.3-44.9) % Plt Count 220 (140-400) K/mcL Neutrophils # 7.5 (1.6-8.9) K/mcL BMP 06/05/17 03:31 Sodium 133 L Potassium 4.5 Chloride 85 L Carbon Dioxide 33 H BUN 30 H Creatinine 1.11 Glucose 156 H Calcium 8.7 Liver Function 06/05/17 Range/Units 03:31 Total Bilirubin 1.1 (0.2-1.2) mg/dL AST 40 H (5-34) Units/L ALT 23 (0-55) Units/L Alkaline Phosphatase 33 L (38-126) Units/L Albumin 2.4 L (3.5-5.0) g/dL - ABG Interpretation ABG results: ABG ABG pH 7.50 pH Units (7.32-7.45) H 06/01/17 17:48 ABG pCO2 50 mmHg (35-45) H 06/01/17 17:48 ABG pO2 65 mmHg (85-104) L 06/01/17 17:48 ABG O2 Saturation 94 % (95-98) L 06/01/17 17:48 PT/INR, D-dimer PT 19.4 Seconds (9.4-12.1) H 06/05/17 12:51 - Attending Attestation I examined this patient and my medical decision-making was reviewed with the Resident Physician on 06/05/17. I agree with the documented findings, disposition and treatment plan as described except to the extent set forth below. Ms New has been admitted for hypoxia related to bilateral pleural effusions and CHF. She remains moderate to high risk due to potential for worsening respiratory status. Ms New did not want to get up today but did later on. She still has some dyspnea but slowly improving. She needs to go to rehab. No fever or chills. Pain is controlled at this time. Exam Alert. Comfortable Mucus membranes dry Heart distant Lungs diminished. No wheeze Abd soft I/P 1. Hypoxia 2. CHF Further diagnoses and plan as above. Anticipate d/c tomorrow.
--- NOTE | 2017-06-05 10:26 | Cardiology Progress Note ---
Date of Encounter: 06/05/17 Time of Encounter: 10:30 Assessment and Plan (1) Acute systolic congestive heart failure Current Visit: Yes Status: Acute Per Cardiology: Acute decompensated congestive heart failure. Echocardiogram showed severely reduced ejection fraction at 30% and severe mitral regurgitation. Net I&O now - [id number]. Was on IV Lasix 40mg q8hrs-- now off, on aldactone 25mg PO BID and metalzone 2.5mg PO daily. Will decrease aldactone to daily and add lasix 40mg PO daily. IV NTG off. Had 1100ml out R thoracentesis 06/02/17 and L thoracentesis 750ml 06/03/17. Decreased O2 requirements-- was high flow 15L Friday, now 3L NC. Low sodium diet, fluid restriction, daily weights reinforced. Will need outpatient repeat echo in about 3 months to eval MR and EF to assess for improvement. Can consider ICD at that time. On ACEI, aldactone. Consider adding BB-- current SBP 90-100's. Discussed with Dr. Schultz, will s/o, re-consult PRN, f/u scheduled. All questions answered. Recommend rehab. (2) Severe mitral regurgitation Current Visit: Yes Status: Acute Per Cardiology: Severe MR seen on TTE. Plan for f/u echo as outpatient to eval after diuresis/ medical management-- per Dr. Ortiz, appeared improved on [facility], suspect improvement with resolution of volume overload. (3) Pleural effusion Current Visit: Yes Status: Acute Per Cardiology: S/p bilateral thoracentesis. (4) Acute on chronic respiratory failure with hypoxia Current Visit: Yes Status: Acute Per Cardiology: Seen by Pulm. Improved with bilateral thoracentesis and diuresis. (5) CAITLYN (acute kidney injury) Current Visit: Yes Status: Acute Per Cardiology: Kidney fxn improved and stable s/p [facility]. Nephrology has seen. Monitor closely with diuresis. (6) Elevated troponin Current Visit: Yes Status: Acute Per Cardiology: S/p cath-- shows left main 100%, proximal LAD 100% LAD collaterals from RCA, proximal circumflex 40%, proximal RCA 50%, distal RCA 60% with FFR of 0.89. Medical management recommended per Dr. Ortiz. Cardiac rehab consult placed. CP free. On asa, statin, ACEI. Again, consider adding BB if able. CP free. (7) Afib Current Visit: Yes Status: Chronic Per Cardiology: Had PAF during stay and loaded with IV amiodarone. Now SR. On PO amio. 200mg BID. Had VT during LHC that required defib of 200 J. No further VT on tele. Will decrease amio to 200mg PO daily-- has been on during lengthy hospital stay. Discussed terminal press operator AC. Family/pt agreeable to AC. CHADS VASc=4 (CHF, DM, age, gender). Will start Coumadin-- pharmacy to dose. Target INR 2.0-3.0, no need to bridge. Qualifiers: Atrial fibrillation type: paroxysmal Qualified Code(s): I48.0 - Paroxysmal atrial fibrillation Discussion w patient/family: The assessment and plan as outlined above was discussed with the patient and/or family members who expressed understanding and agreement. All questions were answered. Thank you for involving us in the care of your patient. Please call with any questions. Subjective Principal diagnosis: acute systolic CHF, Severe MR. Interval history: Patient seen with family at bedside. Seen today up out of bed to chair. Overall short of breath at rest has dramatically improved during hospital stay. She denies any chest pain or palpitations. Denies any active bleeding or blood loss. Reports soreness to sacrum-- family reports limited mobility and laying around the past few weeks at home. Denies any R groin pain. Objective Vital Signs, Last 4 Hours Temp Pulse Resp BP Pulse Ox 06/05/17 08:14 16 105/75 91 06/05/17 07:02 99.7 F H 81 21 105/75 93 General: Conversant HEENT: Atraumatic, Normocephaly Cardiac: Reg Rate and Rhythm, Normal S1 and S2, No Murmur Lungs: Other (Slightly labored at rest, diminished to bilateral bases) Abdomen: Soft, Non-Tender Extremities: Other (trace nonpitting edema bilateral LE-- edema greatly improved ) Results 06/05/17 03:31 06/05/17 03:31 Lab Results Laboratory Tests 06/01/17 06/01/17 06/04/17 03:34 03:34 09:12 INR 1.5 Creatinine Est GFR (Non-Af Amer) Magnesium 1.7 AST ALT B-Natriuretic Peptide 546 H 06/05/17 03:31 INR Creatinine 1.11 Est GFR (Non-Af Amer) 48 L Magnesium AST 40 H ALT 23 B-Natriuretic Peptide ITS Impressions Chest X-Ray 05/27/17 11:27 IMPRESSION: Pulmonary edema with moderate bilateral pleural effusions. D/ / 05/27/2017 14:05:06 Juan Jose Ojeda MD / Lori Lim Interpreting Provider: Juan Jose Ojeda MD Echocardiogram 05/27/17 15:23 Impressions: LVEF 30%. Mildly dilated left ventricle. Severe global left ventricular systolic dysfunction. Severe left ventricular diastolic dysfunction. Normal right ventricular structure and function. Severely dilated left atrium. Severe mitral regurgitation. Mild tricuspid regurgitation. Mild pulmonary hypertension. Left Ventricular Wall Motion: Rest Echo Findings The apex, apical inferior, mid inferior, basal inferior, apical anterior, mid anterior, basal anterior, apical septal, mid inferior septal, basal inferior septal, apical lateral, mid anterior lateral, basal anterior lateral, mid anterior septal, mid inferior lateral, basal anterior septal and basal inferior lateral savage were hypokinetic. Findings: Study Quality * Technically adequate exam. ECG Findings * Normal sinus rhythm. Left Ventricle * LVEF 30%. * Mildly dilated left ventricle. * Severe global left ventricular systolic dysfunction. * Severe left ventricular diastolic dysfunction. Right Ventricle * Normal right ventricular structure and function. Left Atrium * Severely dilated left atrium. Right Atrium * Mildly dilated right atrium. Interatrial Septum * Interatrial septum not well evaluated. Aortic Valve * Trileaflet aortic valve. * Mildly calcified aortic valve leaflets. * No aortic regurgitation. * No aortic stenosis. Mitral Valve * Mild mitral annular calcification * Mildly thickened mitral valve leaflets. * Severe mitral regurgitation. * No mitral stenosis. Tricuspid Valve * Normal tricuspid valve structure. * Mild tricuspid regurgitation. * Mild pulmonary hypertension. Pulmonic Valve * Pulmonic valve not well visualized. Aorta * Normally sized aortic root. Pericardium * The pericardium appears normal. IVC * Normal IVC dimensions and inspiratory collapse. Pulmonary Artery * Normal visualized portions of the main pulmonary artery. Chest X-Ray 05/28/17 14:26 IMPRESSION: Lungs are slightly better expanded than on the prior study, however there is probably no substantial change in bilateral pleural effusions and edema. Basilar opacities likely a combination of fluid and atelectasis although superimposed airspace disease not excluded. D/ / Richard Jaimes / Richard Jaimes Interpreting Provider: Richard Jaimes Chest X-Ray 05/30/17 07:25 IMPRESSION: Worsening edema and effusions. D/ / 05/30/2017 08:12:04 Chester Hairston MD / geoff Interpreting Provider: Chester Hairston MD Retroperitoneum Ultrasound 05/30/17 19:00 IMPRESSION: Bilateral kidneys appear slightly echogenic, which may represent medical renal disease. There is otherwise no hydronephrosis. A 2.5 cm right renal cyst. Incidental slightly hydropic gallbladder with sludge. D/ / 05/30/2017 23:27:08 Richard Galicia MD / scarlett Interpreting Provider: Richard Galicia MD Chest X-Ray 06/01/17 16:42 IMPRESSION: No substantial change in large bilateral pleural effusions and borderline background pulmonary edema. Basilar opacities favored to reflect a combination of atelectasis and fluid. Cannot exclude superimposed airspace disease such as aspiration or pneumonia. D/ / Richard Jaimes / Richard Jaimes Interpreting Provider: Richard Jaimes Thoracentesis Ultrasound 06/02/17 00:00 IMPRESSION: 1. Successful ultrasound guided right thoracentesis. D/ / Daniel Angela MD / Daniel Angela MD Interpreting Provider: Daniel Angela MD Chest X-Ray 06/02/17 13:48 IMPRESSION: 1. Status post right thoracentesis with no immediate complications. 2. Cardiomegaly with vascular congestion. 3. Hazy density to the left hemithorax likely due to pleural effusion and atelectasis. D/ / Daniel Angela MD / Daniel Angela MD Interpreting Provider: Daniel Angela MD Thoracentesis Ultrasound 06/03/17 00:00 IMPRESSION: Successful ultrasound guided thoracentesis. D/ / Jorge Mary MD / Jorge Mary MD Interpreting Provider: Jorge Mary MD Chest X-Ray 06/03/17 14:33 IMPRESSION: 1. Status post left thoracentesis. No pneumothorax. 2. Significant interval improvement of the left pleural effusion and basilar opacity. 3. Small right effusion. D/ / 06/03/2017 15:05:03 [facility]: Lynn Chaney MD Intake & Output 06/02/17 06/03/17 06/04/17 06/05/17 23:59 23:59 23:59 23:59 Intake Total 1966 / 1966 290 / 290 0 / 0 1120 / 1120 Output Total 5525 / 5525 3200 / 3200 1805 / 1805 385 / 385 Balance -3559 / -3559 -2910 / -2910 -1805 / -1805 735 / 735 Weight 84.5 kg 78.4 kg 74.9 kg 75.5 kg Active Medications Acetaminophen (Tylenol) 650 mg PO Q6HR PRN PRN Reason: Fever Stop: 11/29/17 06:42 Last Admin: 05/30/17 14:39 Dose: 650 mg Albuterol/Ipratropium (Duoneb) 3 ml IH [id number] PRN; Protocol PRN Reason: Shortness Of Breath/Wheezing Stop: 11/28/17 16:00 Amiodarone HCl (Cordarone) 200 mg PO BID [facility] Stop: 11/28/17 10:16 Last Admin: 06/05/17 08:25 Dose: 200 mg Aspirin (Aspirin Ec) 81 mg PO DAILY TOBY Stop: 11/27/17 09:01 Last Admin: 06/05/17 08:25 Dose: 81 mg Atorvastatin Calcium (Lipitor) 40 mg PO HS [facility] Stop: 11/26/17 21:01 Last Admin: 06/04/17 22:03 Dose: 40 mg Budesonide/Formoterol Fumarate (Symbicort) 2 puff IH BIDR TOBY PRN Reason: Protocol Stop: 11/27/17 22:01 Last Admin: 06/05/17 08:14 Dose: 2 puff Dextrose/Water (Dextrose 50% (Syg)) 25 ml IVP AD PRN PRN Reason: Hypoglycemia Stop: 11/26/17 18:10 Enoxaparin Sodium (Lovenox) 80 mg 1 mg/kg (80 mg) SQ Q12HR TOBY PRN Reason: Protocol Stop: 12/03/17 18:01 Last Admin: 06/05/17 07:02 Dose: 80 mg Glucagon (Glucagen) 1 mg IM ONCE PRN PRN Reason: Hypoglycemia Stop: 11/26/17 18:10 Glucose (Gluctose) 15 gm PO ONCE PRN PRN Reason: Hypoglycemia Stop: 11/26/17 18:10 Glucose (Gluctose) 30 gm PO ONCE PRN PRN Reason: Hypoglycemia Stop: 11/26/17 18:10 Dextrose (Dextrose 5%) 1,000 mls @ 100 mls/hr IVC .Q10H PRN PRN Reason: HYPOGLYCEMIA Stop: 11/26/17 18:10 Sodium Chloride (0.9 % Sodium Chloride) 1,000 mls @ 100 mls/hr IVC .Q10H [facility] Stop: 12/04/17 15:46 Last Admin: 06/05/17 07:03 Dose: 50 mls/hr Insulin Detemir (Levemir) 10 unit SQ [facility] Stop: 12/03/17 15:32 Last Admin: 06/04/17 23:23 Dose: 10 unit Insulin Human Lispro (Humalog) 0 units SQ TIDAC TOBY PRN Reason: Protocol Stop: 11/27/17 07:31 Last Admin: 06/05/17 08:32 Dose: Not Given Insulin Human Lispro (Humalog) 0 units SQ HS TOBY PRN Reason: Protocol Stop: 11/27/17 21:01 Last Admin: 06/04/17 21:59 Dose: 4 units Lisinopril (Zestril) 2.5 mg PO DAILY TOBY PRN Reason: Protocol Stop: 11/30/17 09:01 Last Admin: 06/05/17 08:10 Dose: Not Given Lorazepam (Ativan) 0.5 mg PO QID PRN PRN Reason: Anxiety Stop: 11/27/17 12:12 Last Admin: 06/05/17 09:57 Dose: 0.5 mg Metolazone (Zaroxolyn) 2.5 mg PO DAILY [facility] Stop: 12/05/17 09:01 Last Admin: 06/05/17 08:25 Dose: 2.5 mg Naloxone HCl (Narcan) 0.4 mg IVP Q2MIN PRN PRN Reason: Opioid Reversal Stop: 11/26/17 15:18 Nystatin (Nystop) 1 appl TP BID [facility] Stop: 11/28/17 21:01 Last Admin: 06/05/17 09:26 Dose: 1 appl Ondansetron HCl (Zofran) 4 mg IVP Q6HR PRN; Protocol PRN Reason: Nausea And Vomiting Stop: 12/03/17 08:16 Last Admin: 06/04/17 22:15 Dose: 4 mg Oxycodone HCl (Oxycodone Conc) 5 mg PO Q6HR PRN PRN Reason: moderate pain Stop: 12/01/17 10:23 Last Admin: 06/04/17 22:03 Dose: 5 mg Oxycodone HCl (Oxycodone Conc) 10 mg PO Q6HR PRN PRN Reason: severe pain Stop: 12/01/17 10:23 Last Admin: 06/03/17 16:49 Dose: 10 mg Spironolactone (Aldactone) 25 mg PO BID [facility] Stop: 11/30/17 11:31 Last Admin: 06/05/17 08:25 Dose: 25 mg Trazodone HCl (Trazodone) 50 mg PO HS PRN PRN Reason: Insomia Stop: 11/27/17 00:28 Last Admin: 06/02/17 20:51 Dose: 50 mg - Imaging and Cardiology Cardiac cath: report reviewed - EKG Interpretation EKG results cardiology: other (Tele shows SR, avg 78 past 24 hrs, PVCs, no VT noted) Consult Discharge Plan - Plan Referrals: [facility] [Other] (The cardiology office will call patient at home with follow up appointment) Barbra Juarez MD [Primary Care Provider] - 06/13/17 1:30 pm
[2017-06-05 13:14] LABS: INR 1.8; Prothrombin Time 19.4 Seconds (9.4-12.1)
[2017-06-05] MEDS: Furosemide 40 MG TABLET PO SCH (16:25)
[2017-06-05] MEDS ORDERED: *HR* Warfarin 2 MG TABLET PO ONE (18:00)
[2017-06-05] MEDS ORDERED: Warfarin perPT PO PRN (18:00)
[2017-06-05] MEDS: Insulin DETEMIR 100 UNIT/ML X5UNITS SQ SCH (20:39)
[2017-06-05] MEDS: OxyCODONE CONC 5 MG/0.25 ML ORAL.SYG PO PRN (20:47)
[2017-06-05] MEDS: Nystatin Cream 15 GM TUBE TP SCH (20:48)
[2017-06-06] MEDS ORDERED: Acetaminophen 650 MG RECTAL SUPP RC ONE (00:33)
[2017-06-06 05:49] LABS: INR 1.9; Prothrombin Time 20.9 Seconds (9.4-12.1)
[2017-06-06] MEDS: *HR* Enoxaparin 80 MG/0.8 ML SYRINGE SQ SCH ×2 (06:01→17:19)
[2017-06-06] MEDS: metOLazone 2.5 MG TABLET PO SCH (08:22)
[2017-06-06] MEDS: Aspirin Enteric Coated 81 MG Tablet PO SCH (08:22)
[2017-06-06] MEDS: Furosemide 40 MG TABLET PO SCH (08:23)
[2017-06-06] MEDS: Ondansetron 4 MG/2 ML VIAL IVP PRN (08:23)
[2017-06-06] MEDS: Insulin LISPRO 300 UNITS/3 ML VIAL SQ SCH ×3 (08:23→17:20)
[2017-06-06] MEDS: Nystatin Cream 15 GM TUBE TP SCH ×2 (08:23→16:35)
[2017-06-06] MEDS ORDERED: Spironolactone 25 MG TABLET PO SCH (09:00)
[2017-06-06] MEDS ORDERED: *HR* Amiodarone 200 MG TABLET PO SCH (09:00)
--- NOTE | 2017-06-06 10:35 | Discharge Summary ---
<Vilma Logan - Last Filed: 06/06/17 15:57> Date of Encounter: 06/06/17 Time of Encounter: 10:29 - Discharge Diagnosis (1) Acute on chronic respiratory failure with hypoxia Priority: Primary Status: Acute Comments: Patient presented with hypoxia, requiring high flow oxygen. This was secondary to acute exacerbation of congestive heart failure, with ejection fraction of 35% . Patient did not have a history of heart failure prior to this admission, suspect underlying cardiac event at home previous. She had bilateral pleural effusions which were contributing to her acute respiratory failure. Status post thoracentesis bilaterally by interventional radiology. She was went back down to her chronic 2 L oxygen at home. (2) Pleural effusion Priority: Primary Status: Acute Comments: Secondary to acute presentation of congestive heart failure likely secondary to underlying cardiac event, patient had left heart catheterization during steak revealing severe to vessel disease with complete stenosis of left anterior descending with collaterals as well as stenosis of the proximal left coronary artery. Cardiology recommended medical management only. Patient had echocardiogram while inpatient demonstrating ejection fraction of 35 % with mitral regurgitation. Should follow up with cardiology outpatient as per the recommendations. Follow pulmonology. (3) Acute systolic congestive heart failure Priority: Primary Status: Acute Comments: No known history of systolic congestive heart failure or to hospitalization. 9 echocardiogram wall inpatient with demonstration of left ventricular ejection fraction of 35%. Left heart catheterization performed by cardiology with severe to vessel disease, no intervention recommended aggressive medical management. Patient aggressively diaries with IV Lasix, was transitioned orally 6 prior to discharge. Encourage fluid restriction and low-sodium diet. Should follow up with cardiology as outpatient as per the recommendations (4) Elevated troponin Priority: Secondary Status: Resolved Comments: Patient presented with elevated troponin, likely secondary to demeaned ischemia due to acute decompensation of systolic congestive heart failure left heart cath performed while inpatient, results as previously discussed. (5) Pulmonary edema Priority: Primary Status: Resolved Comments: As discussed under pleural effusions. Likely secondary to acute systolic heart failure. s/p bilateral thoracentesis with IR LHC performed, results as previously discussed. Qualifiers: Chronicity: acute Qualified Code(s): J81.0 - Acute pulmonary edema (6) COPD (chronic obstructive pulmonary disease) Priority: Secondary Status: Chronic Comments: Per pulmonology, patient does not have history of COPD, she has a history of passive smoke exposure but now known histoyr She was wearing oxygen at home prior to admission Follow up with pulmonology as previously recommended. Continued on bronchodilators as needed Qualifiers: COPD type: emphysema Emphysema type: panlobular Qualified Code(s): J43.1 - Panlobular emphysema (7) Diabetes mellitus type 2 in obese Priority: Secondary Status: Chronic Comments: She was maintained on levemir and low dose sliding scale Diabetic diet (8) Hyperlipidemia Priority: Secondary Status: Chronic Comments: Chronic Stable Contineud on home medications Qualifiers: Hyperlipidemia type: mixed hyperlipidemia Qualified Code(s): E78.2 - Mixed hyperlipidemia - Discharge Medications Home Medications: Albuterol Sulfate [Albuterol Inhaler] 2 puff IH Q6H PRN 05/27/17 [History] Budesonide/Formoterol 80/4.5 [Symbicort 80/4.5] 2 puff IH BID 05/27/17 [History ] Ranitidine HCl [Heartburn Relief] 150 mg PO BID 05/27/17 [History] Amiodarone [Cordarone] 200 mg PO DAILY tablet 06/06/17 [Rx] Aspirin Enteric Coated [Aspirin EC] 81 mg PO DAILY tablet. 06/06/17 [Rx] Atorvastatin [Lipitor] 40 mg PO HS tablet 06/06/17 [Rx] Furosemide [Lasix] 40 mg PO DAILY tablet 06/06/17 [Rx] Insulin DETEMIR [Levemir] 10 unit SQ HS [id number] 06/06/17 [Rx] Insulin LISPRO [HumaLOG] 0 units SQ HS vial 06/06/17 [Rx] Insulin LISPRO [HumaLOG] 0 units SQ TIDAC vial 06/06/17 [Rx] Lisinopril [Zestril] 2.5 mg PO DAILY tablet 06/06/17 [Rx] Nystatin Cream [Mycostatin Cream] 1 appl TP TID tube 06/06/17 [Rx] Spironolactone [Aldactone] 25 mg PO DAILY tablet 06/06/17 [Rx] Warfarin perPT [Coumadin perPT] 1 each PO DAILY@1800 PRN each 06/06/17 [Rx] metOLazone [Zaroxolyn] 2.5 mg PO DAILY tablet 06/06/17 [Rx] traZODone [TraZODone] 50 mg PO HS PRN tablet 06/06/17 [Rx] Allergies/Adverse Reactions: 3 Allergy/AdvReac Type Severity Reaction Status Date / Time No Known Allergies Allergy Verified 05/27/17 11:50 Procedures/tests Complete & Pending: Procedures Performed prior 72 hours Category Date Time Status CL Cardiac Catheterization [CL] Routine Room Worker 06/03/17 11:09 Completed Date of admission: 05/28/17 19:00 Primary care physician: Barbra Juarez MD Consults: 05/30/17 09:09 Consult to Nephrology [CONS] Stat Consulting Provider: Kidney Bambi/CHRISTIANO/TACO/SARAH Reason for Consult: Decreased urine output/ heart failure Time Notified: 09:09 Call Completed: Yes 05/31/17 09:10 Consult to Physical Therapy [CONS] Routine Comment: Evaluate, develop and implement POC Reason for Consult: Bedbound X5 days, cannot take a single step now OT [Consult to Occupational Therapy] [CONS] Routine Comment: Evaluate, develop and implement POC Reason for Consult: Bedbound X5 days, unable to move well or assist with self -care 06/01/17 16:46 Consult to Pulmonology [CONS] Routine Consulting Provider: Pulm Crit Care & Sleep Bambi Reason for Consult: High O2 demands, Discussed with Dr. Ana Paula Colón, rec Pulmo consult to eval Call Completed: Yes 06/03/17 13:20 Consult to Interventional Radiology [CONS] Routine Consulting Provider: Radiology Interventional Cols Reason for Consult: thoracentesis Call Completed: Yes 06/05/17 07:19 Consult to Typing Section Chief [CONS] Routine Reason for SW Consult: discharge planning, pt/ot on board 06/05/17 10:46 Consult to Cardiac Rehabilitation-Phase1 [CONS] Routine Comment: Reason for Consult: CAD, medically managing, Class III CHF Call Completed: No Discharging clinician: Jc Thompson - Patient Status Disposition: Transfer SNF Condition: Fair Overall status at discharge: patient is progressing back to baseline - Discharge Instructions Instructions: Heart Failure (DC), Diabetes Mellitus Type 2 in Adults (DC) Follow Up With: [facility], Cardiolgy [Other] (The cardiology office will call patient at home with follow up appointment) Barbra Juarez MD [Primary Care Provider] - 06/13/17 1:30 pm Additional Instructions: Follow-up appointments: If there is not an appointment listed below, please call your physician and schedule a follow-up appointment. If you have congestive heart failure and your symptoms return, make an appointment with your physician. Medication List: Carry an up to date list of medications you are taking at all time. We have given you an updated medication list including any new medications that you have been prescribed. Please provide that list to your primary provider Symptoms: If your condition changes or you experience any of the following symptoms, notify your physician immediately: Unusual or worsening pain, fever, persistent nausea and vomiting, bleeding, increase in swelling (especially in your legs), sudden weight gain, extreme dizziness, chest pain, increased drainage or redness from a wound or incision. Go to the emergency department if you experience a problem with breathing. Weights: If you have a history of swelling or shortness of breath, weigh yourself daily and notify your physician if you have a weight gain of two or more pounds in one day or 5 or more pounds in a week. If you experience any of the warning signs for stroke: Sudden numbness or weakness of the face, arm or leg; especially on one side of the body, sudden confusion, trouble speaking or understanding, sudden trouble seeing in one or both eyes, sudden trouble walking, dizziness, loss of balance or coordination, sudden sever headache with no cause; Call 911 or go to the emergency room. Stroke is a medical emergency. Some risk factors for stroke: Age, cigarette smoking, diabetes, excessive alcohol consumption, family history , high blood pressure, overweight, physical inactivity, prior stroke, heart attack, diagnosis of carotid artery stenosis or other artery disease. If you smoke, STOP: Smoking or tobacco use significantly increases your risk of heart and lung disease. Your chance of disease greatly increases if you continue to smoke. For more information, call the [place] tobacco quit line for smoking cessation - QUIT-NOW ( ) - Diet and Activity Activity: as per physical therapy Diet: diabetic diet, low fat, low cholesterol Hospital course: Ms. New is a 77 year old female with a past medical history of chronic respiratory failure on 2 L nasal cannula at home, type 2 diabetes, hyperlipidemia who presented to the emergency room after being found to be severely hypoxic and progressively more week over the last few weeks. Initial evaluation demonstration of pulmonary edema and bilateral pleural effusions which likely contributed to her acute worsening of her respiratory status. She initially required oxygen via flow oxygen via mask at 15 L. Pulmonology recommended thoracentesis for removal of the fluid to improve her respiratory status. She was also found to have elevated components which were flat. Cardiology had recommended a left heart catheterization however did not want to do so until her respiratory status improved. Patient underwent bilateral thoracentesis on subsequent days with improvement of her respiratory status in return of her oxygen requirements to her baseline of 2 L via nasal cannula. She subsequently underwent a left heart catheterization which demonstrated severe to vessel disease with 100% stenosis of the proximal left anterior descending and 100% stenosis of the proximal left main coronary artery, there were collaterals present. Cardiology recommended medical management did not perform any intervention. She also had a echocardiogram performed during her hospital stay showing a left ventricular ejection fraction of 35% with mild mitral regurgitation. This is was a new finding and there were no previous echocardiograms to compare to. She will follow-up with cardiology and pulmonology is outpatient. Due to her weakness and inability to take care of herself and families inability to help her, she was qualified and transferred to a skilled rehab facility for further rehab. - Time Spent with Patient Total time spent providing and/or coordinating discharge services: - Constitutional Vitals: Temp Pulse Resp BP Pulse Ox 99.5 F 74 20 123/56 92 06/06/17 08:20 06/06/17 08:20 06/06/17 08:20 06/06/17 08:20 06/06/17 08:20 General appearance: Present: cooperative, morbidly obese, no acute distress, answers questions appropriately - Head Head exam: Present: atraumatic, normocephalic - ENT ENT exam: Present: mucous membranes moist - Neck Neck exam general surgery: Present: supple, trachea midline - Respiratory Respiratory exam: Present: CTAB. Absent: rales, rhonchi, stridor, wheezes - Cardiovascular Cardiovascular exam: Present: RRR, +S1, +S2. Absent: diastolic murmur, systolic murmur - GI/Abdominal GI/Abdominal exam: Present: normal bowel sounds, soft. Absent: distended, firm , rebound, tenderness - Extremities Exam Extremities exam: Present: normal capillary refill. Absent: pedal edema - Psychiatric Psychiatric exam: Present: flat affect <Jay,Jc A - Last Filed: 06/06/17 18:10> Date of Encounter: 06/06/17 - Discharge Diagnosis (1) Acute on chronic respiratory failure with hypoxia Status: Acute (2) Acute systolic congestive heart failure Status: Acute Comments: Not on beta rahul due to heart rate. (3) Pleural effusion Status: Acute (4) Afib Priority: Secondary Status: Chronic Qualifiers: Atrial fibrillation type: paroxysmal Qualified Code(s): I48.0 - Paroxysmal atrial fibrillation (5) Diabetes mellitus type 2 in obese Status: Chronic (6) Hyperlipidemia Status: Chronic Qualifiers: Hyperlipidemia type: mixed hyperlipidemia Qualified Code(s): E78.2 - Mixed hyperlipidemia (7) CAD (coronary artery disease) Priority: Secondary Status: Chronic Qualifiers: Coronary Disease-Associated Artery/Lesion type: [place] artery [place] vs. transplanted heart: [place] heart Associated angina: without angina Qualified Code(s): I25.10 - Atherosclerotic heart disease of [place] coronary artery without angina pectoris Date of admission: 05/28/17 19:00 Primary care physician: Barbra Juarez MD Consults: 05/30/17 09:09 Consult to Nephrology [CONS] Stat Consulting Provider: Kidney Bambi/CHRISTIANO/TACO/SARAH Reason for Consult: Decreased urine output/ heart failure Time Notified: 09:09 Call Completed: Yes 05/31/17 09:10 Consult to Physical Therapy [CONS] Routine Comment: Evaluate, develop and implement POC Reason for Consult: Bedbound X5 days, cannot take a single step now OT [Consult to Occupational Therapy] [CONS] Routine Comment: Evaluate, develop and implement POC Reason for Consult: Bedbound X5 days, unable to move well or assist with self -care 06/01/17 16:46 Consult to Pulmonology [CONS] Routine Consulting Provider: Pulm Crit Care & Sleep Bambi Reason for Consult: High O2 demands, Discussed with Dr. Ana Paula Colón, rec Pulmo consult to eval Call Completed: Yes 06/03/17 13:20 Consult to Interventional Radiology [CONS] Routine Consulting Provider: Radiology Interventional Cols Reason for Consult: thoracentesis Call Completed: Yes 06/05/17 07:19 Consult to Typing Section Chief [CONS] Routine Reason for SW Consult: discharge planning, pt/ot on board 06/05/17 10:46 Consult to Cardiac Rehabilitation-Phase1 [CONS] Routine Comment: Reason for Consult: CAD, medically managing, Class III CHF Call Completed: No Hospital course: Ms. New is a 77 year old female - Time Spent with Patient Total time spent providing and/or coordinating discharge services: 37min - Constitutional Vitals: Temp Pulse Resp BP Pulse Ox 100.3 F H 80 17 96/52 96 06/06/17 16:35 06/06/17 16:13 06/06/17 16:13 06/06/17 16:13 06/06/17 16:13 - Attending Attestation I examined this patient and my medical decision-making was reviewed with the Resident Physician on 06/06/17. I agree with the documented findings, disposition and treatment plan as described except to the extent set forth below. Ms. New has been admitted for resp failure, CHF and CAD. She has improved with bilateral thoracenteses. She is now afebrile with stable vitals. She is ready for discharge to SNF. Exam Alert. Comfortable Mucus membranes dry Heart not tachy Lungs diminished Plan D/C to SNF today.
--- NOTE | 2017-06-06 10:41 | Physician Discharge Referral ---
ExtendedCare Referral Info Transfer To: [facility] Level of Care: Skilled - Diagnosis (1) Acute on chronic respiratory failure with hypoxia Priority: Primary Status: Acute (2) Pleural effusion Priority: Primary Status: Acute (3) Acute systolic congestive heart failure Priority: Primary Status: Acute (4) Elevated troponin Priority: Primary Status: Resolved (5) Pulmonary edema Priority: Primary Status: Resolved (6) COPD (chronic obstructive pulmonary disease) Priority: Secondary Status: Chronic (7) Diabetes mellitus type 2 in obese Priority: Secondary Status: Chronic (8) Hyperlipidemia Priority: Secondary Status: Chronic Prognosis: Good - Transfer Medications Home Medications: Albuterol Sulfate [Albuterol Inhaler] 2 puff IH Q6H PRN 05/27/17 [History] Budesonide/Formoterol 80/4.5 [Symbicort 80/4.5] 2 puff IH BID 05/27/17 [History ] Ranitidine HCl [Heartburn Relief] 150 mg PO BID 05/27/17 [History] Amiodarone [Cordarone] 200 mg PO DAILY tablet 06/06/17 [Rx] Aspirin Enteric Coated [Aspirin EC] 81 mg PO DAILY tablet. 06/06/17 [Rx] Atorvastatin [Lipitor] 40 mg PO HS tablet 06/06/17 [Rx] Furosemide [Lasix] 40 mg PO DAILY tablet 06/06/17 [Rx] Insulin DETEMIR [Levemir] 10 unit SQ HS [id number] 06/06/17 [Rx] Insulin LISPRO [HumaLOG] 0 units SQ HS vial 06/06/17 [Rx] Insulin LISPRO [HumaLOG] 0 units SQ TIDAC vial 06/06/17 [Rx] Lisinopril [Zestril] 2.5 mg PO DAILY tablet 06/06/17 [Rx] Nystatin Cream [Mycostatin Cream] 1 appl TP TID tube 06/06/17 [Rx] Spironolactone [Aldactone] 25 mg PO DAILY tablet 06/06/17 [Rx] Warfarin perPT [Coumadin perPT] 1 each PO DAILY@1800 PRN each 06/06/17 [Rx] metOLazone [Zaroxolyn] 2.5 mg PO DAILY tablet 06/06/17 [Rx] traZODone [TraZODone] 50 mg PO HS PRN tablet 06/06/17 [Rx] Allergies/Adverse Reactions: 3 Allergy/AdvReac Type Severity Reaction Status Date / Time No Known Allergies Allergy Verified 05/27/17 11:50 - Respiratory Orders Oxygen / L per min (2L continuous via nasal cannula) Smoking Cessation: Smoking cessation has been advised. For more information, call the [place] Tobacco Quit Line at 4-897-AIEH-NOW. CERTIFICATION: I certify that the transfer of the above named patient to an Extended Care Facility is necessary for the continuing treatment of the diagnosis listed. The above information is true and accurate reflection of patient's current condition. Confidential - Redisclosure prohibited without a patient's written consent.
[2017-06-06] MEDS: Budesonide/Formoterol 80/4.5 MDI IH SCH ×2 (11:47→23:20)
[2017-06-06 16:17] VITALS: BP 96/52
[2017-06-06] MEDS: Acetaminophen 325 MG TABLET PO PRN (17:22)
[2017-06-06] MEDS ORDERED: *HR* Warfarin 2 MG TABLET PO ONE (18:00)
== END 2017-06-06 18:30 | disposition other institution (70) | DRG 286 ==
LOC: EMEROO 11:10 → 2NENU 11:10 → 2NNU 05-28 18:49 → SUATTDRO 05-28 19:00
PROVIDERS: ADMIT Internal Medicine; ATTEND Internal Medicine

== ENCOUNTER 2017-07-05 13:03 | Inpatient (IN) ==
[2017-07-05] MEDS ORDERED: *HR* Morphine 2 MG/ML SYRINGE IVP ONE (13:24)
--- NOTE | 2017-07-05 13:28 | Emergency Department Note ---
Disposition Clinical Impression: Right hip pain, Failure to thrive in adult, Supratherapeutic INR Disposition: Admitted As Inpatient Condition: Fair Extremity Problem HPI - General Chief complaint: ED Extremity Problem,Nontraumatic Stated complaint: R hip pain Time Seen by Provider: 07/05/17 13:13 Source: patient, family Mode of arrival: private vehicle Limitations: physical limitation Nursing Notes Reviewed: Yes Vital Signs Reviewed: Yes - History of Present Illness HPI Narrative: 77-year-old female presents to the ER with the chief complaint of right hip pain , unable to ambulate. Patient is accompanied by family. They report that starting over the weekend she started complaining of right hip pain. They reported to progress to the point where she is no longer able to ambulate. She usually walks with a walker. She was admitted to the hospital at the end of April for heart failure. She did have a left heart catheterization during her hospitalization and went to a senior care facility. Family reports she was released prior to and has been living at home alone however someone is there 24 7 with her. Denies any falls. No twist terns lifting up heavy objects. Denies numbness tingling or paresthesias. No prior injury to her hip. No other complaints. Pt Subjective Complaint: extremity pain Onset (ago): day(s) Consistency: constant Injury Location: right, lower extremity Pain Scale: 8 Improves with: nothing Worsens with: weight bearing Associated symptoms: Reports: denies other symptoms - Related Data Home Medications Medication Instructions Recorded Confirmed Albuterol Sulfate [Albuterol 2 puff IH Q6H PRN 05/27/17 05/27/17 Inhaler] Budesonide/Formoterol 80/4.5 2 puff IH BID 05/27/17 05/27/17 [Symbicort 80/4.5] Previous Rx's Medication Instructions Recorded Amiodarone [Cordarone] 200 mg PO DAILY tablet 06/06/17 Aspirin Enteric Coated [Aspirin EC] 81 mg PO Q48H #0 tablet. 06/20/17 Digoxin [Lanoxin] 0.25 mg PO DAILY #30 tablet 06/20/17 Furosemide [Lasix] 20 mg PO DAILY #0 tablet 06/20/17 Isosorbide MONOnitrate (24 HR) 60 mg PO DAILY #30 tab.er.24h 06/20/17 [Imdur] Lisinopril [Zestril] 5 mg PO DAILY #30 tablet 06/20/17 Ranitidine HCl [Heartburn Relief] 150 mg PO BID PRN #0 06/20/17 Warfarin [Coumadin] 1.5 mg PO DAILY@1800 #45 tablet 06/20/17 Allergies Allergy/AdvReac Type Severity Reaction Status Date / Time No Known Allergies Allergy Verified 07/05/17 13:12 All systems ED: reviewed and negative except as stated. Constitutional: Denies: fever Gastrointestinal: Denies: nausea, vomiting, diarrhea Musculoskeletal: Reports: other (Right hip pain). Denies: back pain Neurological: Denies: numbness, paresthesias Past Medical History - Past Medical History Attestation: Yes The following information was validated with the patient. 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 - Social History Smoking Status: Never smoker Smokeless Tobacco Status: No Alcohol use: Reports: none Drug use: Reports: none Physical Exam - General Limitations: no limitations General appearance: alert, in no apparent distress - Head Head exam: atraumatic, normocephalic - Eye Eye exam: Present: normal appearance - ENT ENT exam: normal exam - Neck Neck exam: Present: normal inspection, full ROM - Chest Chest inspection: Present: normal inspection, symmetric chest wall rise - Respiratory Respiratory exam: Present: normal lung sounds bilaterally - Cardiovascular Cardiovascular exam: Present: regular rate, normal rhythm, normal heart sounds - Abdominal Exam Abdominal exam: Present: soft, Non-Tender. Absent: tenderness - Extremities Exam Extremities exam: Present: normal inspection, full ROM - Expanded Upper Extremity Exam Shoulder exam: Present: normal inspection, full ROM Arm exam: Present: normal inspection, full ROM Elbow exam: Present: normal inspection, full ROM Forearm/Wrist exam: Present: normal inspection, full ROM Hand exam: Present: normal inspection, full ROM - Expanded Lower Extremity Exam Hip/Pelvis exam: Present: normal inspection, tenderness (Tenderness to palpation along the right iliac crest as well as the right greater trochanter with diminished range of motion secondary to pain.) Upper leg exam: Present: normal inspection Knee exam: Present: normal inspection, full ROM Lower leg exam: Present: normal inspection, full ROM Ankle exam: Present: normal inspection, full ROM Foot/toe exam: Present: normal inspection, full ROM - Back Exam Back exam: Present: normal inspection - Expanded Neurological Exam Motor strength - LUE: 4/5 Motor strength - RUE: 4/5 Motor strength - LLE: 4/5 Motor strength - RLE: 4/5 Sensory exam upper extremity: light touch: Normal Sensory exam lower extremity: light touch: Normal - Skin Skin exam: Present: warm, dry, intact Course Course Narrative: Patient seen and examined. She is unable to bear weight here. Denies any trauma. No overlying soft tissue changes to the hip. We will place an IV give her some morphine for pain and check a right hip series. - Reevaluation(s) Reevaluation #1: Discussed results of x-ray with patient and family. She is still unable to ambulate so we will pursue a CT scan of the hip as well as baseline labs and urinalysis. Reevaluation #2: CT imaging back and discussed with patient and family. No evidence of fracture. She does have an incidental mass noted with recommended nonemergent follow-up. Patient was initially refusing to stay however she is unable to ambulate here. Family also goes into detail that she has been refusing to eat at home. We will discuss with the hospitalist for admission for hip pain as well as failure to thrive in an adult. Reevaluation #3: Patient noted to have INR of greater than 8. We will obtain a CT scan of the head for evaluation. Vital Signs Temperature 98.4 F 07/05/17 13:07 Pulse Rate 89 07/05/17 13:07 Respiratory Rate 18 07/05/17 13:07 Blood Pressure 124/68 07/05/17 13:07 O2 Sat by Pulse Oximetry 97 07/05/17 13:07 Temperature 98.4 F 07/05/17 13:07 Pulse Rate 95 07/05/17 18:35 Respiratory Rate 18 07/05/17 19:04 Blood Pressure 117/81 07/05/17 19:04 O2 Sat by Pulse Oximetry 98 07/05/17 18:35 Oxygen Delivery Oxygen Delivery Room Air Extremity Problem, Nontraumati - MDM Narrative Medical decision making narrative: 77-year-old female presents to the ER due to right hip pain. Patient was recently hospitalized for acutely decompensated heart failure. She went to a senior care facility and then home before [place]. Family has been with her throughout this time. Denies any trauma. X-ray and CT showed no acute fractures. She is unwilling to ambulate here secondary to pain. Labs and urinalysis were reviewed. Family also reporting she is not eating at home. I suspect there is a component of dementia or behavioral issues going on with her complaints. She is admitted to the hospitalist service for further management. This documentation is done with the assistance of Dragon dictation. There may be inaccuracies in eligibility services representative or spelling and typographical errors. I examined this patient and my medical decision-making was reviewed with the Resident Physician. I agree with the documented findings, disposition and treatment plan as described except to the extent set forth below. Patient was seen and evaluated by Dr. Brown and myself, I agree with his evaluation and management plan, supervise care the patient's stay. Patient presents today with hip pain she sits causing her not to be out ambulate. She says that she has not fallen there is no trauma to the appearing of problems with his hip in the past denies any back pain or abdominal pain. She is able to stand but she says it does hurt. She points from the hip all the way down the femur. [facility] imaging. Given her something for pain and then reassess. Hip X-Ray 07/05/17 13:24 IMPRESSION: No acute osseous abnormality. Moderate osteoarthritis of the hips. D/ / Niko Smart MD / Niko Smart MD Interpreting Provider: Niko Smart MD 1520 hours: Nothing on her x-ray that shows an acute injury. A CT the area out some labs he may have to come in the hospital be seen by orthopedics and social media campaign manager. Discussing this with the family at this time. Hip X-Ray 07/05/17 13:24 IMPRESSION: No acute osseous abnormality. Moderate osteoarthritis of the hips. D/ / Niko Smart MD / Niko Smart MD Interpreting Provider: Niko Smart MD Hip CT 07/05/17 15:05 IMPRESSION: 1. No acute osseous abnormality. 2. Moderate bilateral hip, moderate bilateral sacroiliac joint, and severe pubic symphysis degenerative changes. 3. Moderate to severe multilevel degenerative changes of the visualized lower lumbar spine. 4. Partially visualized fat density mass in the posterior aspect of the proximal right thigh measuring at least 10 x 6.5 cm with thin internal septations. 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 Recommend further evaluation with nonemergent contrast-enhanced MRI of the right thigh. D/ / Jose Wright MD / Jose Wright MD Interpreting Provider: Jose Wright MD 1730 hrs.: Patient wants to go home but she is unable to ambulate. We discussed options of bringing her into the hospital be seen by hospitalist and possibly social work. She may need a physical therapy consult. 1823 hrs.: Patient's INR also came back elevated. She has no signs of bleeding were not and reverse that. Pain and a CT her head to make sure there is nothing going on there also. She and family and agreed with plan. Hip X-Ray 07/05/17 13:24 IMPRESSION: No acute osseous abnormality. Moderate osteoarthritis of the hips. D/ / Niko Smart MD / Niko Smart MD Interpreting Provider: Niko Smart MD Hip CT 07/05/17 15:05 IMPRESSION: 1. No acute osseous abnormality. 2. Moderate bilateral hip, moderate bilateral sacroiliac joint, and severe pubic symphysis degenerative changes. 3. Moderate to severe multilevel degenerative changes of the visualized lower lumbar spine. 4. Partially visualized fat density mass in the posterior aspect of the proximal right thigh measuring at least 10 x 6.5 cm with thin internal septations. 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 Recommend further evaluation with nonemergent contrast-enhanced MRI of the right thigh. D/ / Jose Wright MD / Jose Wright MD Interpreting Provider: Jose Wright MD Head CT 07/05/17 18:21 IMPRESSION: No evidence of acute intracranial hemorrhage or mass effect. Chronic appearing right thalamic lacunar infarct. Paranasal sinus disease including sphenoid sinus air-fluid level. This may represent acute sinusitis in the appropriate clinical setting. Bilateral mastoid and middle ear disease. D/ / Wai Webber MD / Wai Webber MD Interpreting Provider: Wai Webber MD - Lab Data Lab results reviewed: Yes I reviewed the patient's lab results. Result diagrams: 07/05/17 15:33 07/05/17 15:33 Lab Results 07/05/17 07/05/17 07/05/17 Range/Units 15:33 15:33 15:33 WBC 9.4 (4.3-11.1) K/mcL RBC 3.00 L (3.82-4.97) M/mcL Hgb 8.9 L (11.5-15.4) g/dL Hct 27.6 L (35.3-44.9) % MCV 92.0 (83.0-100.0) fL MCH 29.7 (28.0-33.3) pg MCHC 32.2 (31.6-35.5) g/dL RDW 14.6 H (11.5-14.5) % Plt Count 283 (140-400) K/mcL MPV 9.4 (9.4-12.4) fL Immature Gran % 0.2 (0-4) % Seg Neutrophils % 78.3 % Lymphocytes % 11.3 % Monocytes % 10.0 % Eosinophils % 0.1 % Basophils % 0.1 % Neutrophils # 7.4 (1.6-8.9) K/mcL Lymphocytes # 1.1 (0.6-4.6) K/mcL Monocytes # 0.9 (0.0-1.3) K/mcL Eosinophils # 0.0 (0.0-0.6) K/mcL Basophils # 0.0 (0.0-0.2) K/mcL PT 97.7 H* (9.4-12.1) Seconds INR 8.7 H* Sodium 134 L (136-145) mEq/L Potassium 3.5 (3.5-5.1) mEq/L Chloride 95 L (98-107) mEq/L Carbon Dioxide 32 H (23-29) mEq/L BUN 14 (8-23) mg/dL Creatinine 0.57 L (0.60-1.20) mg/dL Est GFR ( Amer) > 60 (> 60) Est GFR (Non-Af Amer) > 60 (> 60) BUN/Creatinine Ratio 25 (6-26) Glucose 296 H (70-105) mg/dL Calculated Osmolality 289 (280-300) Calcium 8.9 (8.6-10.3) mg/dL Ur Specimen Adequacy Urine Color (Yellow) Urine Clarity (Clear) Urine pH (5.0-8.0) pH Units Ur Specific [place] (1.010-1.025) Urine Protein (Neg-Trace) mg/dL Urine Glucose (UA) (Normal) mg/dL Urine Ketones (Negative) mg/dL Urine Blood (Negative) Urine Nitrite (Negative) Urine Bilirubin (Negative) Urine Urobilinogen (Normal) mg/dL Ur Leukocyte Esterase (Negative) Urine Microscopic WBC (0-3) per hpf Ur Squamous Epith Cells (None-Few) per lpf Urine Bacteria (None-Few) per hpf Urine Yeast (None Seen) per hpf Ur Culture Indicated? (NO) 07/05/17 Range/Units 15:45 WBC (4.3-11.1) K/mcL RBC (3.82-4.97) M/mcL Hgb (11.5-15.4) g/dL Hct (35.3-44.9) % MCV (83.0-100.0) fL MCH (28.0-33.3) pg MCHC (31.6-35.5) g/dL RDW (11.5-14.5) % Plt Count (140-400) K/mcL MPV (9.4-12.4) fL Immature Gran % (0-4) % Seg Neutrophils % % Lymphocytes % % Monocytes % % Eosinophils % % Basophils % % Neutrophils # (1.6-8.9) K/mcL Lymphocytes # (0.6-4.6) K/mcL Monocytes # (0.0-1.3) K/mcL Eosinophils # (0.0-0.6) K/mcL Basophils # (0.0-0.2) K/mcL PT (9.4-12.1) Seconds INR Sodium (136-145) mEq/L Potassium (3.5-5.1) mEq/L Chloride (98-107) mEq/L Carbon Dioxide (23-29) mEq/L BUN (8-23) mg/dL Creatinine (0.60-1.20) mg/dL Est GFR ( Amer) (> 60) Est GFR (Non-Af Amer) (> 60) BUN/Creatinine Ratio (6-26) Glucose (70-105) mg/dL Calculated Osmolality (280-300) Calcium (8.6-10.3) mg/dL Ur Specimen Adequacy Test Not Performed Urine Color Yellow (Yellow) Urine Clarity Turbid A (Clear) Urine pH 5.0 (5.0-8.0) pH Units Ur Specific [place] > 1.030 H (1.010-1.025) Urine Protein Trace (Neg-Trace) mg/dL Urine Glucose (UA) >=1000 H (Normal) mg/dL Urine Ketones Trace H (Negative) mg/dL Urine Blood Small H (Negative) Urine Nitrite Negative (Negative) Urine Bilirubin Negative (Negative) Urine Urobilinogen Normal (Normal) mg/dL Ur Leukocyte Esterase Negative (Negative) Urine Microscopic WBC 0-3 (0-3) per hpf Ur Squamous Epith Cells Present (None-Few) per lpf Urine Bacteria Present (None-Few) per hpf Urine Yeast Present H (None Seen) per hpf Ur Culture Indicated? YES A (NO) - Radiology Data Radiology results reviewed: Yes I reviewed the patient's radiology results. Hip X-Ray 07/05/17 13:24 IMPRESSION: No acute osseous abnormality. Moderate osteoarthritis of the hips. D/ / Niko Smart MD / Niko Smart MD Interpreting Provider: Niko Smart MD Hip CT 07/05/17 15:05 IMPRESSION: 1. No acute osseous abnormality. 2. Moderate bilateral hip, moderate bilateral sacroiliac joint, and severe pubic symphysis degenerative changes. 3. Moderate to severe multilevel degenerative changes of the visualized lower lumbar spine. 4. Partially visualized fat density mass in the posterior aspect of the proximal right thigh measuring at least 10 x 6.5 cm with thin internal septations. 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 Recommend further evaluation with nonemergent contrast-enhanced MRI of the right thigh. D/ / Jose Wright MD / Jose Wright MD Interpreting Provider: Jose Wright MD Hip X-Ray 07/05/17 13:24 IMPRESSION: No acute osseous abnormality. Moderate osteoarthritis of the hips. D/ / Niko Smart MD / Niko Smart MD Interpreting Provider: Niko Smart MD Hip CT 07/05/17 15:05 IMPRESSION: 1. No acute osseous abnormality. 2. Moderate bilateral hip, moderate bilateral sacroiliac joint, and severe pubic symphysis degenerative changes. 3. Moderate to severe multilevel degenerative changes of the visualized lower lumbar spine. 4. Partially visualized fat density mass in the posterior aspect of the proximal right thigh measuring at least 10 x 6.5 cm with thin internal septations. 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 Recommend further evaluation with nonemergent contrast-enhanced MRI of the right thigh. D/ / Jose Wright MD / Jose Wright MD Interpreting Provider: Jose Wright MD Head CT 07/05/17 18:21
[2017-07-05] MEDS ORDERED: *HR* FentaNYL (PF) 100 MCG/2 ML VIAL IVP ONE (15:09)
[2017-07-05 15:42] LABS: Basophils % 0.1 %; Eosinophils % 0.1 %; Hematocrit 27.6 % (35.3-44.9); Hemoglobin 8.9 g/dL (11.5-15.4); Immature Granulocytes % 0.2 % (0-4); Lymphocytes # 1.1 K/mcL (0.6-4.6); Lymphocytes % 11.3 %; Mean Corpuscular HGB Conc 32.2 g/dL (31.6-35.5); Mean Corpuscular Hemoglobin 29.7 pg (28.0-33.3); Mean Platelet Volume 9.4 fL (9.4-12.4); Monocytes # 0.9 K/mcL (0.0-1.3); Neutrophils # 7.4 K/mcL (1.6-8.9); Platelet Count 283 K/mcL (140-400); Red Cell Distribution Width 14.6 % (11.5-14.5); Segmented Neutrophils % 78.3 %
[2017-07-05 15:56] LABS: Bilirubin,Urine Negative (Negative); Blood,Urine Small (Negative); Clarity,Urine Turbid (Clear); Color,Urine Yellow (Yellow); Glucose,Urine (UA) >=1000 mg/dL (Normal); Ketones,Urine Trace mg/dL (Negative); Leukocyte Esterase,Urine Negative (Negative); Nitrite,Urine Negative (Negative); Protein,Urine Trace mg/dL (Neg-Trace); Specific Gravity,Urine > 1.030 (1.010-1.025); Urobilinogen,Urine Normal (Normal)
[2017-07-05 16:00] LABS: BUN/Creatinine Ratio 25 (6-26); Blood Urea Nitrogen 14 mg/dL (8-23); Calcium 8.9 mg/dL (8.6-10.3); Carbon Dioxide 32 mEq/L (23-29); Chloride 95 mEq/L (98-107); Glucose 296 mg/dL (70-105); Osmolality,Calculated 289 (280-300); Potassium 3.5 mEq/L (3.5-5.1); Sodium 134 mEq/L (136-145); eGFR For African Americans > 60 (> 60); eGFR For Non-African Americans > 60 (> 60)
[2017-07-05 16:22] LABS: Squamous Epithelial Cell,Urine Present per lpf (None-Few)
[2017-07-05 16:23] LABS: Bacteria,Urine Present per hpf (None-Few); Yeast,Urine Present per hpf (None Seen)
[2017-07-05 16:24] LABS: WBC,Urine 0-3 per hpf (0-3)
[2017-07-05] MEDS ORDERED: 0.9 % Sodium Chloride 1,000 ML IVC ONE (17:28)
[2017-07-05 18:21] LABS: INR 8.7; Prothrombin Time 97.7 Seconds (9.4-12.1)
[2017-07-05] MEDS ORDERED: Naloxone 0.4 MG/ML INJ IVP PRN (21:11)
[2017-07-05] MEDS ORDERED: Acetaminophen 325 MG TABLET PO PRN (21:11)
--- NOTE | 2017-07-05 21:36 | Internal Med History&Physical ---
<Curt Elizabeth - Last Filed: 07/05/17 22:12> Date of Encounter: 07/05/17 Time of Encounter: 20:30 Assessment and Plan (1) Right hip pain Current visit: Yes Status: Acute Acute right hip and leg pain that began on . Pts. daughter states pt. was able to ambulate w/o problem w/walker on Friday. Pt. states she cannot walk at all d/t pain. CT of the right hip wo contrast today shows no acute osseous abnormality. Moderate bilateral hip, moderate bilateral sacroiliac joint, and severe pubic symphysis degenerative changes. Moderate to severe multilevel degenerative changes of the visualized lower lumbar spine. Partially visualized density mass in the posterior aspect of the proximal right thigh measuring at least 10 x 6.5 cm with thin internal septations. 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 Recommend further evaluation with nonemergent contrast-enhanced MRI of the right thigh. Shook catheter ordered for urine mgmt. Pt. states she is unable to use bedside commode d/t pain so will attempt bed bhat for bowel mgmt. Stair-step pain medications for pain mgmt. Bed rest. Pt. discussed w/Dr. Silva who is in agreement w/plan of care. Pt. is at moderate risk for further morbidity and falls based on current edema and pain in right hip and leg, hx, and risk factors including obesity. Inpatient. (2) Supratherapeutic INR Current visit: Yes Status: Acute Supratherapeutic INR on admission w/INR of 8.7 and PT of 97.7. Will hold pts. Coumadin until PT/INR within therapeutic level. Repeat PT/INR and monitor f/u labs. Monitor pt. for signs of bleeding. (3) Hyponatremia Current visit: Yes Status: Acute Acute hyponatremia w/sodium level of 134 on admission. Pts. chloride level currently 95. Will hold administering IV fluids at present time d/t hx of CHF. Will monitor in f/u labs. (4) Failure to thrive in adult Current visit: Yes Status: Acute Acute failure to thrive in adult. Pt. reports loss of appetite over the past several weeks and has reduced intake. Nutrition consult ordered for PO supplementation. Cardiac diet. Monitor I&O and daily weight. (5) COPD (chronic obstructive pulmonary disease) Current visit: Yes Status: Chronic Hx of chronic COPD. Stable. Pt. currently denies SOB/dyspnea. Lungs clear on auscultation. Qualifiers: COPD type: unspecified COPD Qualified Code(s): J44.9 - Chronic obstructive pulmonary disease, unspecified (6) CHF (congestive heart failure) Current visit: Yes Status: Chronic Hx of chronic CHF. Stable. Pt. has no pedal edema and denies SOB. Will monitor. Qualifiers: Congestive heart failure type: unspecified Congestive heart failure chronicity: chronic Qualified Code(s): I50.9 - Heart failure, unspecified (7) DVT prophylaxis Current visit: Yes Status: Acute Pt. currently has supratherapeutic PT of 97.7 and INR of 8.7. Will hold Coumadin until pts. levels are therapeutic. Monitor pt. for signs of bleeding. Internal Medicine - H&P: HPI Chief complaint: Left hip and leg pain Admitted From: Emergency Dept Plans for Post Hospital Care: Home History of present illness: Ms. New is a 77 year old female with medical hx of arthritis, CHF, and COPD presents from the ED with chief complaint of severe pain and swelling in her right hip with pain radiating down right leg that began on . Pts. daughter reports that pt. was able to ambulate to PCP appt. on Friday w/ walker to and from car w/o problem. Pt. and daughter deny falls, trauma, or strain. No recent or long-term injury to hip. Pt. reports that she is not able to ambulate at all at present time. Pt. reports recent loss of appetite but denies recent illness, fever, chills, nausea, vomiting, chest pain, changes in vision, headache, palpitations, dizziness, weakness, unusual bleeding, abdominal pain, numbness, tingling, pre-syncope, or syncope. Past Med Surg Social Fam HX - Past Medical History Source: patient, old records reviewed, obtained from family Medical history: arthritis, CHF, COPD Psychiatric history: no psych history - Past Surgical History Surgical History: other (Bialteral tubal ligation and removal of fatty tumor on right shoulder) - Social History Smoking Status: Never smoker Smokeless Tobacco Status: No Alcohol use: none Drug use: none Current living situation: Home Activity Level: Uses cane/walker Recent Out of Country Travel Within the Last 8 Weeks: No Exposure or Possible Exposure to Illness During Travel: No - Family History Father Race: Family Member Ethnicity: Non- Living Status: Age at : 58 Cause of : ND Hx Family Cardiac Disorders: Yes (ND) Mother Race: Family Member Ethnicity: Non- Living Status: Age at : 25 Cause of : ND Hx Family Cardiac Disorders: Yes (ND) Brother Race: Family Member Ethnicity: Non- Living Status: Age at : 76 Cause of : Lung cancer Hx Family Cancer: Yes (Lung) Internal Medicine - H&P: Meds Albuterol Sulfate [Albuterol Inhaler] 2 puff IH Q6H PRN 05/27/17 [History] Budesonide/Formoterol 80/4.5 [Symbicort 80/4.5] 2 puff IH BID 05/27/17 [History ] Amiodarone [Cordarone] 200 mg PO DAILY tablet 06/06/17 [Rx] Aspirin Enteric Coated [Aspirin EC] 81 mg PO Q48H #0 tablet.dr 06/20/17 [Rx] Digoxin [Lanoxin] 0.25 mg PO DAILY #30 tablet 06/20/17 [Rx] Furosemide [Lasix] 20 mg PO DAILY #0 tablet 06/20/17 [Rx] Isosorbide MONOnitrate (24 HR) [Imdur] 60 mg PO DAILY #30 tab.er.24h 06/20/17 [ Rx] Lisinopril [Zestril] 5 mg PO DAILY #30 tablet 06/20/17 [Rx] Ranitidine HCl [Heartburn Relief] 150 mg PO BID PRN #0 06/20/17 [Rx] Warfarin [Coumadin] 1.5 mg PO DAILY@1800 #45 tablet 06/20/17 [Rx] 3 Allergy/AdvReac Type Severity Reaction Status Date / Time No Known Allergies Allergy Verified 07/05/17 13:12 All Systems PM: A 10-system review of systems was performed and is negative for pertinent findings except as documented above in the HPI. - Constitutional Constitutional: as per HPI, anorexia, no chills, no fever(s), no night sweats - EENT Eyes: no change in vision, no discharge, no pain, no photophobia Ears: no ear discharge, no ear pain, no tinnitus Nose, mouth and throat: no dysphagia, no nasal discharge, no neck pain, no sore throat - Breasts Breasts: as per HPI - Cardiovascular Cardiovascular ROS IM: no chest pain, no diaphoresis, no dyspnea, no lightheadedness, no palpitations, no syncope - Respiratory Respiratory: no cough, no dyspnea, no wheezing, no excessive phlegm production - Gastrointestinal Gastrointestinal: no abdominal pain, no diarrhea, no hematemesis, no hematochezia, no melena, no nausea, no vomiting - Genitourinary Genitourinary: no change in urinary stream, no dysuria, no flank pain, no hematuria Menstruation: as per HPI - Musculoskeletal Musculoskeletal ROS IM: as per HPI, other (Pain and edema in right hip and leg) - Integumentary Integumentary IM: no rash, no unusual bruising - Neurological Neurological ROS: no confusion, no convulsions, no focal weakness, no numbness, no tingling, no tremor(s) - Psychiatric Psychiatric: as per HPI - Endocrine Endocrine IM: as per HPI - Hematologic/Lymphatic Hematologic/Lymphatic: no easy bruising - Allergic/Immunologic Allergic/Immunologic: as per HPI - Constitutional Vitals: Temp Pulse Resp BP Pulse Ox 98.4 F 93 16 123/65 97 07/05/17 13:07 07/05/17 20:40 07/05/17 20:40 07/05/17 20:40 07/05/17 20:40 General appearance: Present: cooperative, mild distress, A&O X 3, pleasant, obese, answers questions appropriately - Head Head exam: Present: atraumatic, normocephalic - Eye Eye exam: Present: PERRL, conjuntiva pink, sclera anicteric Pupils: Present: PERRL - ENT ENT exam: Present: normal exam - Neck Neck exam general surgery: Present: normal inspection, supple, trachea midline. Absent: lymphadenopathy - Respiratory Respiratory exam: Present: CTAB. Absent: accessory muscle use, rales, rhonchi, wheezes - Cardiovascular Cardiovascular exam: Present: RRR, +S1, +S2. Absent: diastolic murmur, gallop, rubs, systolic murmur - GI/Abdominal GI/Abdominal exam: Present: normal bowel sounds, soft, no peritoneal signs. Absent: distended, tenderness - Rectal Rectal exam: Present: deferred - Additional comments: exam deferred. - Extremities Exam Extremities exam: Present: tenderness (Right hip tenderness and edema. Pt. reports pain extends down right leg.), warm, radial pulses palpable and symmetrical. Absent: calf tenderness, cyanotic - Back Exam Back exam: Present: normal inspection - Neurological Exam Neurological exam: Present: CN II-XII intact, oriented X3, no focal deficits. Absent: pronater drift, facial droop, speech deficit - Psychiatric Psychiatric exam: Present: normal affect, normal mood - Skin Skin exam: Present: dry, intact Internal Med - H&P Results - Labs CBC & Chem 7: 07/05/17 15:33 07/05/17 15:33 - Impressions ITS Impressions Head CT 07/05/17 18:21 IMPRESSION: No evidence of acute intracranial hemorrhage or mass effect. Chronic appearing right thalamic lacunar infarct. Paranasal sinus disease including sphenoid sinus air-fluid level. This may represent acute sinusitis in the appropriate clinical setting. Bilateral mastoid and middle ear disease. D/ / Wai Webber MD / Wai Webber MD Interpreting Provider: Wai Webber MD - Diagnostic Studies Other Images Additional comments: Impressions Hip X-Ray 07/05/17 13:24 IMPRESSION: No acute osseous abnormality. Moderate osteoarthritis of the hips. D/ / Niko Smart MD / Niko Smart MD Interpreting Provider: Niko Smart MD Hip CT 07/05/17 15:05 IMPRESSION: 1. No acute osseous abnormality. 2. Moderate bilateral hip, moderate bilateral sacroiliac joint, and severe pubic symphysis degenerative changes. 3. Moderate to severe multilevel degenerative changes of the visualized lower lumbar spine. 4. Partially visualized fat density mass in the posterior aspect of the proximal right thigh measuring at least 10 x 6.5 cm with thin internal septations. 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 Recommend further evaluation with nonemergent contrast-enhanced MRI of the right thigh. D/ / Jose Wright MD / Jose Wright MD Interpreting Provider: Jose Wright MD CT scan - head Additional comments: Impressions Head CT 07/05/17 18:21 IMPRESSION: No evidence of acute intracranial hemorrhage or mass effect. Chronic appearing right thalamic lacunar infarct. Paranasal sinus disease including sphenoid sinus air-fluid level. This may represent acute sinusitis in the appropriate clinical setting. Bilateral mastoid and middle ear disease. D/ / Wai Webber MD / Wai Webber MD Interpreting Provider: Wai Webber MD <Mary Silva - Last Filed: 07/06/17 04:19> Date of Encounter: 07/06/17 Internal Medicine - H&P: HPI History of present illness: Ms. New is a 77 year old female All Systems PM: A 10-system review of systems was performed and is negative for pertinent findings except as documented above in the HPI. - Constitutional Vitals: Temp Pulse Resp BP Pulse Ox 99.9 F H 95 16 114/66 98 07/06/17 01:47 07/06/17 03:48 07/06/17 03:48 07/06/17 03:48 07/06/17 03:48 Internal Med - H&P Results - Labs CBC & Chem 7: 07/05/17 15:33 07/05/17 15:33 - Attending Attestation I have seen and examined pt independently, I have discussed with [employer] Mr Elizabeth regarding the management plan. Agree with the documentation. Pt has supratherapeutic INR, right hip pain and CT hip shows 10x 6 size possible lipoma. I called and discussed with radiologist Dr Wright and was told it is not hematoma despite INR is 8.6. Pt has good pulse on right leg. Will cont pain management and consult PT/OT.
[2017-07-05] MEDS ORDERED: Famotidine 20 MG TABLET PO PRN (21:47)
[2017-07-05] MEDS ORDERED: 0.9 % Sodium Chloride 250 ML ONE (21:55)
[2017-07-05] MEDS: *HR* HYDROmorphone (PF) 1 MG/ML SYRINGE IVP PRN (22:14)
[2017-07-05] MEDS: Aspirin Enteric Coated 81 MG Tablet PO SCH (22:15)
[2017-07-05] MEDS: Furosemide 20 MG/2 ML VIAL IVP SCH (22:15)
[2017-07-06] MEDS: Furosemide 20 MG/2 ML VIAL IVP SCH (01:26)
[2017-07-06] MEDS ORDERED: 0.9 % Sodium Chloride 250 ML ONE (01:33)
[2017-07-06] MEDS: *HR* HYDROmorphone (PF) 1 MG/ML SYRINGE IVP PRN ×2 (04:19→13:27)
[2017-07-06] MEDS: *HR* HYDROcodone/Acet 5/325 mg TABLET PO PRN ×4 (05:46→22:46)
[2017-07-06 07:10] LABS: Alanine Aminotransferase 9 Units/L (7-52); Albumin 3.3 g/dL (3.5-5.7); Albumin/Globulin Ratio 0.9 (1.1-2.2); Alkaline Phosphatase 42 Units/L (34-104); Aspartate Amino Transferase 9 Units/L (13-39); BUN/Creatinine Ratio 21 (6-26); Bilirubin,Total 0.9 mg/dL (0.3-1.0); Blood Urea Nitrogen 13 mg/dL (8-23); Calcium 8.7 mg/dL (8.6-10.3); Carbon Dioxide 32 mEq/L (23-29); Chloride 95 mEq/L (98-107); Chol/HDL Ratio 5.5 (0-4.9); Cholesterol 210 mg/dL (< 200); Globulin 3.8 g/dL (2.4-3.5); Glucose 270 mg/dL (70-105); HDL Cholesterol 38 mg/dL (40-59); LDL Cholesterol,Calculated 145 mg/dL (0-99); Magnesium 1.8 mg/dL (1.6-2.6); Osmolality,Calculated 292 (280-300); Potassium 3.3 mEq/L (3.5-5.1); Sodium 136 mEq/L (136-145); Total Protein 7.1 g/dL (6.4-8.9); Triglycerides 137 mg/dL (< 150); eGFR For African Americans > 60 (> 60); eGFR For Non-African Americans > 60 (> 60)
[2017-07-06 07:17] LABS: Basophils % 0.1 %; Eosinophils % 0.4 %; Hematocrit 25.7 % (35.3-44.9); Immature Granulocytes % 0.3 % (0-4); Lymphocytes # 0.9 K/mcL (0.6-4.6); Lymphocytes % 11.6 %; Mean Corpuscular HGB Conc 31.1 g/dL (31.6-35.5); Mean Corpuscular Hemoglobin 29.1 pg (28.0-33.3); Mean Corpuscular Volume 93.5 fL (83.0-100.0); Mean Platelet Volume 9.8 fL (9.4-12.4); Monocytes # 0.9 K/mcL (0.0-1.3); Monocytes % 11.6 %; Neutrophils # 5.7 K/mcL (1.6-8.9); Platelet Count 239 K/mcL (140-400); Red Blood Count 2.75 M/mcL (3.82-4.97)
[2017-07-06 07:35] LABS: INR 3.8; Prothrombin Time 41.9 Seconds (9.4-12.1)
[2017-07-06] MEDS: Furosemide 40 MG TABLET PO SCH (09:36)
[2017-07-06] MEDS: *HR* Digoxin 0.25 MG TABLET PO SCH (09:36)
[2017-07-06] MEDS: *HR* Amiodarone 200 MG TABLET PO SCH (09:36)
[2017-07-06] MEDS: Isosorbide MONOnitrate (24 HR) 60 MG TAB.ER.24H PO SCH (09:36)
--- NOTE | 2017-07-06 11:34 | Internal Med Progress Note ---
Date of Encounter: 07/06/17 Time of Encounter: 08:00 - Assessment and plan (1) Hyponatremia Current Visit: Yes Status: Acute Assessment and plan: Resolved. Sodium is 136 (2) Afib Current Visit: No Status: Chronic Assessment and plan: Continue amiodarone and digoxin. Coumadin but INR is supratherapeutic. We will let pharmacy dose. INR is coming down to 3.8 this morning compared to 8.7 yesterday. Qualifiers: Atrial fibrillation type: paroxysmal Qualified Code(s): I48.0 - Paroxysmal atrial fibrillation (3) Right hip pain Current Visit: Yes Status: Acute Assessment and plan: We will check MRI of the right hip and right thigh area. There was mass seen on the CT that was hard to delineate. MRI should be better to visualize. This possibly could be explaining her pain versus SI joint pathology. Continue with pain control. Continue physical therapy. (4) Failure to thrive in adult Current Visit: Yes Status: Acute Assessment and plan: Consult dietary. (5) COPD (chronic obstructive pulmonary disease) Current Visit: Yes Status: Chronic Assessment and plan: Stable Qualifiers: COPD type: unspecified COPD Qualified Code(s): J44.9 - Chronic obstructive pulmonary disease, unspecified (6) CHF (congestive heart failure) Current Visit: Yes Status: Chronic Assessment and plan: No signs of hypervolemia. The patient is stable. Qualifiers: Congestive heart failure type: unspecified Congestive heart failure chronicity: chronic Qualified Code(s): I50.9 - Heart failure, unspecified (7) DVT prophylaxis Current Visit: Yes Status: Acute Assessment and plan: Coumadin. Hold that for now as INR is supratherapeutic. - Subjective Interval history: No acute events. Patient was admitted yesterday with severe pain and swelling in her right hip with pain radiating to the right leg shows been going on for couple days. The patient says she continues to have pain. Usually she is ambulatory from what I understand you and uses a walker on and off. She has been afebrile. - Constitutional Vitals: Temp Pulse Resp BP Pulse Ox 98.7 F 90 18 126/65 94 07/06/17 10:48 07/06/17 10:48 07/06/17 10:48 07/06/17 10:48 07/06/17 10:48 General appearance: Present: cooperative, mild distress, A&O X 3, pleasant, obese, answers questions appropriately Exam: GEN: NAD CVS: RRR. S1, S2, No m/r/g RESP: CTAB ABD: Soft, NT, ND, +BS EXT: No edema. 2+ DP. No rashes. The patient has tenderness to palpation at the right hip with tenderness in the posterior right thigh. NEURO: Nonfocal Internal Medicine: Result - Labs CBC & Chem 7: 07/06/17 05:59 07/06/17 05:59 Labs: Short CBC 07/06/17 Range/Units 05:59 WBC 7.5 (4.3-11.1) K/mcL Hgb 8.0 L (11.5-15.4) g/dL Hct 25.7 L (35.3-44.9) % Plt Count 239 (140-400) K/mcL Neutrophils # 5.7 (1.6-8.9) K/mcL BMP 07/06/17 05:59 Sodium 136 Potassium 3.3 L Chloride 95 L Carbon Dioxide 32 H BUN 13 Creatinine 0.63 Glucose 270 H Calcium 8.7 Liver Function 07/06/17 Range/Units 05:59 Total Bilirubin 0.9 (0.3-1.0) mg/dL AST 9 L (13-39) Units/L ALT 9 (7-52) Units/L Alkaline Phosphatase 42 (34-104) Units/L Albumin 3.3 L (3.5-5.7) g/dL - ABG Interpretation ABG results: PT/INR, D-dimer PT 41.9 Seconds (9.4-12.1) H D 07/06/17 05:59 Consult Discharge Plan - Plan Referrals: Barbra Juarez MD [Primary Care Provider] - Prince Wolf MD [Family Provider] -
[2017-07-06] MEDS: Ondansetron 4 MG/2 ML VIAL IVP PRN (11:39)
[2017-07-06] MEDS ORDERED: Warfarin perPT PO PRN (18:00)
[2017-07-07] MEDS: Ondansetron 4 MG/2 ML VIAL IVP PRN ×2 (02:23→13:11)
[2017-07-07] MEDS: *HR* HYDROmorphone (PF) 1 MG/ML SYRINGE IVP PRN ×5 (02:28→17:49)
[2017-07-07 04:25] LABS: Basophils % 0.2 %; Eosinophils % 0.2 %; Hematocrit 23.8 % (35.3-44.9); Hemoglobin 7.4 g/dL (11.5-15.4); Immature Granulocytes % 0.5 % (0-4); Lymphocytes # 0.9 K/mcL (0.6-4.6); Lymphocytes % 14.2 %; Mean Corpuscular HGB Conc 31.1 g/dL (31.6-35.5); Mean Corpuscular Hemoglobin 28.4 pg (28.0-33.3); Mean Corpuscular Volume 91.2 fL (83.0-100.0); Mean Platelet Volume 9.6 fL (9.4-12.4); Monocytes # 0.7 K/mcL (0.0-1.3); Monocytes % 11.1 %; Neutrophils # 4.8 K/mcL (1.6-8.9); Platelet Count 234 K/mcL (140-400); Red Blood Count 2.61 M/mcL (3.82-4.97); Red Cell Distribution Width 15.1 % (11.5-14.5); Segmented Neutrophils % 73.8 %
[2017-07-07 04:39] LABS: Alanine Aminotransferase 84 Units/L (7-52); Albumin 2.9 g/dL (3.5-5.7); Albumin/Globulin Ratio 0.9 (1.1-2.2); Alkaline Phosphatase 40 Units/L (34-104); Aspartate Amino Transferase 102 Units/L (13-39); BUN/Creatinine Ratio 23 (6-26); Blood Urea Nitrogen 23 mg/dL (8-23); Calcium 8.4 mg/dL (8.6-10.3); Carbon Dioxide 34 mEq/L (23-29); Chloride 93 mEq/L (98-107); Globulin 3.3 g/dL (2.4-3.5); Glucose 355 mg/dL (70-105); Osmolality,Calculated 290 (280-300); Potassium 3.9 mEq/L (3.5-5.1); Sodium 131 mEq/L (136-145); Total Protein 6.2 g/dL (6.4-8.9); eGFR For African Americans > 60 (> 60); eGFR For Non-African Americans 53 (> 60)
[2017-07-07] MEDS: *HR* HYDROcodone/Acet 5/325 mg TABLET PO PRN ×2 (05:07→16:59)
[2017-07-07] MEDS ORDERED: Dextrose Gel 15 GM/37.5 ML TUBE PO PRN ×2 (05:33)
[2017-07-07] MEDS ORDERED: *HR* Dextrose 50 % in Water (Syg) 50 ML SYRINGE IVP PRN (05:33)
[2017-07-07] MEDS ORDERED: D5% in Water 1,000 ML IVC PRN (05:33)
[2017-07-07] MEDS: Insulin LISPRO 300 UNITS/3 ML VIAL SQ SCH ×5 (06:09→21:52)
[2017-07-07] MEDS: Isosorbide MONOnitrate (24 HR) 60 MG TAB.ER.24H PO SCH (08:48)
[2017-07-07] MEDS: *HR* Amiodarone 200 MG TABLET PO SCH (08:48)
[2017-07-07] MEDS: Furosemide 40 MG TABLET PO SCH (08:48)
[2017-07-07] MEDS: *HR* Digoxin 0.25 MG TABLET PO SCH (08:48)
[2017-07-07 09:04] LABS: INR 6.3; Prothrombin Time 70.8 Seconds (9.4-12.1)
[2017-07-07] MEDS ORDERED: diazePAM 10 MG/2 ML SYRINGE IVP STA (11:11)
[2017-07-07] MEDS ORDERED: *HR* LORazepam 2 MG/ML VIAL IVP ONE ×2 (11:23→17:45)
--- NOTE | 2017-07-07 13:12 | Internal Med Progress Note ---
Date of Encounter: 07/07/17 Time of Encounter: 09:00 - Assessment and plan (1) Right hip pain Current Visit: Yes Status: Acute Assessment and plan: Awaiting MRI of the right hip and thigh area.. There was mass seen on the CT that was hard to delineate. MRI should be better to visualize. Unsure if this is a bleed into her soft tissue. I worry about that given the low hemoglobin and elevated INR. She is hemodynamically stable. This possibly could be explaining her pain versus SI joint pathology. Continue with pain control. Continue physical therapy. (2) CAITLYN (acute kidney injury) Current Visit: No Status: Resolved Assessment and plan: Hold Lasix and lisinopril. She has received those already today. We will try to avoid IV fluids given her history of CHF. Heart catheter in May 2017 showed severe 2 vessel disease with an EF of 35%. Labs in the morning. (3) Hyponatremia Current Visit: Yes Status: Acute Assessment and plan: Continue to monitor for now. It was 136 yesterday and is down to 131 today. She is on Lasix which I will hold especially with an elevated kidney function. She did receive her Lasix this morning however. (4) Afib Current Visit: No Status: Chronic Assessment and plan: Continue amiodarone and digoxin. INR is up to 6.3 and has been fluctuating. Oriented rub in her hemoglobin I worry about a bleed. There are no obvious signs of bleeding. No indication to give FFP is a vitamin K for now. We will let pharmacy dose. Qualifiers: Atrial fibrillation type: paroxysmal Qualified Code(s): I48.0 - Paroxysmal atrial fibrillation (5) Failure to thrive in adult Current Visit: Yes Status: Acute Assessment and plan: Consult dietary. (6) COPD (chronic obstructive pulmonary disease) Current Visit: Yes Status: Chronic Assessment and plan: Stable Qualifiers: COPD type: unspecified COPD Qualified Code(s): J44.9 - Chronic obstructive pulmonary disease, unspecified (7) CHF (congestive heart failure) Current Visit: Yes Status: Chronic Assessment and plan: No signs of hypervolemia. The patient is stable. Qualifiers: Congestive heart failure type: unspecified Congestive heart failure chronicity: chronic Qualified Code(s): I50.9 - Heart failure, unspecified (8) Stage II pressure ulcer of buttock Current Visit: Yes Status: Acute Assessment and plan: per nursing. consult wound care. Qualifiers: Laterality: left Qualified Code(s): L89.322 - Pressure ulcer of left buttock, stage 2 (9) DVT prophylaxis Current Visit: Yes Status: Acute Assessment and plan: Coumadin. Hold that for now as INR is supratherapeutic. - Subjective Interval history: No acute events. Hemoglobin is dropping but there is no signs of bleeding. Patient continues to have significant pain in the lower extremity. She is not allowing me to examine her. I tried getting the nurse to be with me in the room so we can rotate the patient and she would not let us. I tried lifting the lower extremities so I can look underneath her legs into her thigh area where a mass was mentioned on the CT scan and she would not let me do that. Patient was admitted 07/05 with severe pain and swelling in her right hip with pain radiating to the right leg shows been going on for couple days. The patient says she continues to have pain. Usually she is ambulatory from what I understand and uses a walker on and off. She has been afebrile. - Constitutional Vitals: Temp Pulse Resp BP Pulse Ox 97.8 F 70 18 123/70 93 07/07/17 08:06 07/07/17 08:06 07/07/17 08:06 07/07/17 08:06 07/07/17 08:06 General appearance: Present: cooperative, mild distress, A&O X 3, pleasant, obese, answers questions appropriately Exam: GEN: NAD CVS: RRR. S1, S2, No m/r/g RESP: CTAB ABD: Soft, NT, ND, +BS EXT: No edema. 2+ DP. No rashes. The patient has tenderness to palpation at the right hip with tenderness in the posterior right thigh but I do not feel any masses NEURO: Nonfocal Internal Medicine: Result - Labs CBC & Chem 7: 07/07/17 03:58 07/07/17 03:58 Labs: Short CBC 07/07/17 Range/Units 03:58 WBC 6.5 (4.3-11.1) K/mcL Hgb 7.4 L (11.5-15.4) g/dL Hct 23.8 L (35.3-44.9) % Plt Count 234 (140-400) K/mcL Neutrophils # 4.8 (1.6-8.9) K/mcL BMP 07/07/17 03:58 Sodium 131 L Potassium 3.9 Chloride 93 L Carbon Dioxide 34 H BUN 23 Creatinine 1.02 Glucose 355 H Calcium 8.4 L Liver Function 07/07/17 Range/Units 03:58 Total Bilirubin 1.0 (0.3-1.0) mg/dL AST 102 H (13-39) Units/L ALT 84 H (7-52) Units/L Alkaline Phosphatase 40 (34-104) Units/L Albumin 2.9 L (3.5-5.7) g/dL - ABG Interpretation ABG results: PT/INR, D-dimer PT 70.8 Seconds (9.4-12.1) H* D 07/07/17 08:40 Consult Discharge Plan - Plan Referrals: Barbra Juarez MD [Primary Care Provider] - Prince Wolf MD [Family Provider] -
[2017-07-07] MEDS ORDERED: Famotidine 20 MG TABLET PO PRN (13:26)
[2017-07-07] MEDS: Silvasorb 44.4 ML TUBE TP SCH (17:57)
[2017-07-07] MEDS ORDERED: Insulin DETEMIR 100 UNIT/ML X5UNITS SQ SCH (21:00)
[2017-07-07] MEDS: Aspirin Enteric Coated 81 MG Tablet PO SCH (21:51)
[2017-07-08] MEDS ORDERED: Acetaminophen IV 500 MG/50 ML INFUS..BTL IVPB ONE (00:17)
[2017-07-08 01:03] LABS: Eosinophils % 0.4 %; Hematocrit 26.5 % (35.3-44.9); Hemoglobin 8.6 g/dL (11.5-15.4); Immature Granulocytes % 0.5 % (0-4); Immature Platelets 2.3 % (1.1-6.1); Lymphocytes % 9.5 %; Mean Corpuscular HGB Conc 32.5 g/dL (31.6-35.5); Mean Corpuscular Hemoglobin 29.8 pg (28.0-33.3); Mean Corpuscular Volume 91.7 fL (83.0-100.0); Mean Platelet Volume 9.5 fL (9.4-12.4); Platelet Count 306 K/mcL (140-400); Red Blood Count 2.89 M/mcL (3.82-4.97); Red Cell Distribution Width 15.2 % (11.5-14.5); Segmented Neutrophils % 79.5 %
[2017-07-08 01:04] LABS: Basophils % 0.1 %; Eosinophils % 0.4 %; Hematocrit 26.3 % (35.3-44.9); Hemoglobin 8.4 g/dL (11.5-15.4); Immature Granulocytes % 0.4 % (0-4); Immature Platelets 1.9 % (1.1-6.1); Lymphocytes # 0.8 K/mcL (0.6-4.6); Lymphocytes # 0.9 K/mcL (0.6-4.6); Lymphocytes % 10.4 %; Mean Corpuscular HGB Conc 31.9 g/dL (31.6-35.5); Mean Corpuscular Hemoglobin 29.1 pg (28.0-33.3); Mean Platelet Volume 9.5 fL (9.4-12.4); Monocytes # 0.8 K/mcL (0.0-1.3); Monocytes % 9.6 %; Neutrophils # 6.4 K/mcL (1.6-8.9); Neutrophils # 6.5 K/mcL (1.6-8.9); Platelet Count 298 K/mcL (140-400); Red Blood Count 2.89 M/mcL (3.82-4.97); Red Cell Distribution Width 15.2 % (11.5-14.5); Segmented Neutrophils % 79.1 %
[2017-07-08 01:19] LABS: Alanine Aminotransferase 66 Units/L (7-52); Albumin 2.9 g/dL (3.5-5.7); Albumin/Globulin Ratio 0.7 (1.1-2.2); Alkaline Phosphatase 46 Units/L (34-104); Aspartate Amino Transferase 38 Units/L (13-39); BUN/Creatinine Ratio 31 (6-26); Bilirubin,Total 0.9 mg/dL (0.3-1.0); Blood Urea Nitrogen 25 mg/dL (8-23); Calcium 8.6 mg/dL (8.6-10.3); Carbon Dioxide 32 mEq/L (23-29); Chloride 93 mEq/L (98-107); Globulin 4.1 g/dL (2.4-3.5); Glucose 177 mg/dL (70-105); Osmolality,Calculated 287 (280-300); Potassium 3.7 mEq/L (3.5-5.1); Sodium 134 mEq/L (136-145); eGFR For African Americans > 60 (> 60); eGFR For Non-African Americans > 60 (> 60)
[2017-07-08 01:20] LABS: Prothrombin Time 80.2 Seconds (9.4-12.1)
[2017-07-08 01:21] LABS: INR 7.1
[2017-07-08] MEDS: *HR* HYDROmorphone (PF) 1 MG/ML SYRINGE IVP PRN ×5 (01:51→23:22)
[2017-07-08 02:15] LABS: Hemoglobin A1C 7.8 %
--- NOTE | 2017-07-08 03:35 | Event Note ---
Date of Encounter: 07/08/17 Time of Encounter: 03:00 Pt developped fever to 102. Blood cx and CXR has been placed. CXR shows possible Bibasal pneumonia. Vanco and zosyn started for hospital acquired pneumonia. Pt has Hx of A Fib and CHF, place cardiac monitoring to closely monitor pt. Please follow up blood culture.
[2017-07-08] MEDS ORDERED: Vancomycin 1,000 MG in D5% in Water 250 ML IVPB SCH (04:00)
[2017-07-08] MEDS: Acetaminophen 650 MG RECTAL SUPP RC PRN ×2 (04:19→16:37)
[2017-07-08] MEDS ORDERED: Vancomycin 1,500 MG in D5% in Water 250 ML IVPB SCH (05:00)
[2017-07-08] MEDS: Piperacillin/Tazobactam 3.375 GM/200 ML BAG IVPB SCH ×2 (05:32→15:14)
[2017-07-08 08:29] LABS: Bilirubin,Urine Small (Negative); Blood,Urine Trace (Negative); Clarity,Urine Cloudy (Clear); Color,Urine Dark Yellow (Yellow); Glucose,Urine (UA) Normal (Normal); Ketones,Urine Negative (Negative); Leukocyte Esterase,Urine Negative (Negative); Nitrite,Urine Negative (Negative); Protein,Urine 100 mg/dL (Neg-Trace); Specific Gravity,Urine > 1.030 (1.010-1.025); Urobilinogen,Urine Normal (Normal)
[2017-07-08] MEDS ORDERED: *HR* LORazepam 2 MG/ML VIAL IVP ONE (08:30)
[2017-07-08 08:31] LABS: Bacteria,Urine Few per hpf (None-Few); Hyaline Casts,Urine Few per lpf (None-Few); Squamous Epithelial Cell,Urine Moderate per lpf (None-Few); WBC,Urine 30-50 per hpf (0-3)
--- NOTE | 2017-07-08 08:36 | Internal Med Progress Note ---
Date of Encounter: 07/08/17 Time of Encounter: 08:31 - Assessment and plan (1) Right hip pain Current Visit: Yes Status: Acute Assessment and plan: MRI of the right femur showed a large 21.3 x 9.8 x 7.7 cm fat signal mass. Not exactly sure this is the cause of her issues. I will have surgery see the patient and have him weigh in on this. Given the significant weakness in the lower extremities in the right upper extremity weakness I will be checking a brain MRI. My concern is the elevated INR and I worry about a head bleed. CT head was negative on admission. Continue with pain control. Continue physical therapy. (2) Weakness Current Visit: Yes Status: Acute Assessment and plan: As mentioned above. Not exactly sure that all of her weakness is coming from the mass seen on the lower extremity. Rule out a CVA. She does have elevated INR. I wonder if her swallow function is also compromised given the fever and the pneumonia. We will get speech to see the patient as well. (3) CAITLYN (acute kidney injury) Current Visit: No Status: Resolved Assessment and plan: Hold Lasix and lisinopril again. Improving. Check labs in the morning. She has received those already today. We will try to avoid IV fluids given her history of CHF. Heart catheter in May 2017 showed severe 2 vessel disease with an EF of 35%. . (4) Hyponatremia Current Visit: Yes Status: Acute Assessment and plan: Continue to monitor for now. Up to 134 with Lasix.. (5) Afib Current Visit: No Status: Chronic Assessment and plan: Continue amiodarone and digoxin. INR is up to 7.1. Not exactly sure what the reason for the fluctuation is. We will check digoxin level. She has not been receiving Coumadin here. Her hemoglobin did go up today. I was worried about a bleed however that is less likely with hemoglobin going up. There are no obvious signs of bleeding. Given the fact that it continues to goes up and the finding on the MRI, I will give the patient 5 mg of IV vitamin K. No need for FFP's for now especially with her history of heart failure. There is a drop in hemoglobin and this is confirmed as a bleed we may have to give FFP's. FFP's may be also needed in case of any surgical needs. Hold Coumadin Qualifiers: Atrial fibrillation type: paroxysmal Qualified Code(s): I48.0 - Paroxysmal atrial fibrillation (6) Failure to thrive in adult Current Visit: Yes Status: Acute Assessment and plan: Consult dietary. (7) COPD (chronic obstructive pulmonary disease) Current Visit: Yes Status: Chronic Assessment and plan: Stable Qualifiers: COPD type: unspecified COPD Qualified Code(s): J44.9 - Chronic obstructive pulmonary disease, unspecified (8) CHF (congestive heart failure) Current Visit: Yes Status: Chronic Assessment and plan: No signs of hypervolemia. The patient is stable. She is on chronic 2 L Qualifiers: Congestive heart failure type: unspecified Congestive heart failure chronicity: chronic Qualified Code(s): I50.9 - Heart failure, unspecified (9) HCAP (healthcare-associated pneumonia) Current Visit: Yes Status: Acute Assessment and plan: Continue vancomycin and Zosyn. Antibiotics were started last night. Possible aspiration. Follow up on cultures. Check urine strep and Legionella. She is not having a cough. Tylenol for fevers. (10) Stage II pressure ulcer of buttock Current Visit: Yes Status: Acute Assessment and plan: per nursing. consult wound care. Qualifiers: Laterality: left Qualified Code(s): L89.322 - Pressure ulcer of left buttock, stage 2 (11) Diabetes mellitus type 2 in obese Current Visit: No Status: Chronic Assessment and plan: Glucoses consistently elevated. I checked a hemoglobin A1c came back at 7.8. It was 10.9 back in April. Started 10 units Levemir at night but will stop that now since I will make her NPO till seen by speech. Continue nasal sinus scale. Continue with Accu-Cheks. (12) DVT prophylaxis Current Visit: Yes Status: Acute Assessment and plan: Coumadin. Hold that for now as INR is supratherapeutic. - Subjective Interval history: Patient is febrile overnight. Chest x-ray showed infiltrates and she was started on broad-spectrum antibiotics. She went for an MRI of the lower extremities yesterday as well. She continues to have significant lower extremity pain and she is not really cooperating in terms of physical exam. She has right upper extremity weakness that is new this morning as well. Daughter is at bedside. Daughter tells me that her mother does not carry diagnosis of diabetes. She does have a hemoglobin A1c and record back in April that came back at 10.9. She is not on any diabetic medications. She is not on insulin. - Constitutional Vitals: Temp Pulse Resp BP Pulse Ox 101.2 F H 80 16 119/64 96 07/08/17 05:55 07/08/17 05:55 07/08/17 05:55 07/08/17 05:55 07/08/17 05:55 General appearance: Present: cooperative, mild distress, A&O X 3, pleasant, obese, answers questions appropriately Exam: GEN: NAD CVS: RRR. S1, S2, No m/r/g RESP: CTAB ABD: Soft, NT, ND, +BS EXT: No edema. 2+ DP. No rashes. The patient has tenderness to palpation at the right hip with tenderness in the posterior right thigh but I do not feel any masses NEURO: The patient would not follow my commands when testing for neurological deficits. She is able to squeeze both of my hands however it is less so on the right than it is on the left. She still not able to lift her lower extremities bilaterally. She would not let me look into her pupils Internal Medicine: Result - Labs CBC & Chem 7: 07/08/17 00:55 07/08/17 00:55 Labs: Short CBC 07/08/17 07/08/17 Range/Units 00:55 00:55 WBC 8.0 8.2 (4.3-11.1) K/mcL Hgb 8.6 L 8.4 L (11.5-15.4) g/dL Hct 26.5 L 26.3 L (35.3-44.9) % Plt Count 306 298 (140-400) K/mcL Neutrophils # 6.4 6.5 (1.6-8.9) K/mcL BMP 07/08/17 00:55 Sodium 134 L Potassium 3.7 Chloride 93 L Carbon Dioxide 32 H BUN 25 H Creatinine 0.81 Glucose 177 H Calcium 8.6 Liver Function 07/08/17 Range/Units 00:55 Total Bilirubin 0.9 (0.3-1.0) mg/dL AST 38 (13-39) Units/L ALT 66 H (7-52) Units/L Alkaline Phosphatase 46 (34-104) Units/L Albumin 2.9 L (3.5-5.7) g/dL - ABG Interpretation ABG results: PT/INR, D-dimer PT 80.2 Seconds (9.4-12.1) H* 07/08/17 00:55 - Impressions Impressions Femur MRI 07/07/17 08:21 IMPRESSION: 1. Large 21.3 x 9.8 x 7.7 cm fat signal mass in the posterior compartment of the right thigh with thin mildly enhancing internal septations. No nodularity identified. 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 Significant mass effect on without definite involvement of the hamstring musculature. 2. Moderate volume of fluid in the right greater trochanteric bursa. 3. Small volume of free fluid in the pelvis. D/ / Jose Wright MD / Jose Wright MD Interpreting Provider: Jose Wright MD Chest X-Ray 07/08/17 00:10 IMPRESSION: Bibasilar atelectasis or pneumonia. Possible pulmonary edema. D/ / Rishi Rogers MD / Rishi Rogers MD Interpreting Provider: Rishi Rogers MD Consult Discharge Plan - Plan Referrals: Barbra Juarez MD [Primary Care Provider] - Prince Wolf MD [Family Provider] -
[2017-07-08] MEDS: *HR* Digoxin 0.25 MG TABLET PO SCH (08:46)
[2017-07-08] MEDS: Isosorbide MONOnitrate (24 HR) 60 MG TAB.ER.24H PO SCH (08:46)
[2017-07-08] MEDS: *HR* Amiodarone 200 MG TABLET PO SCH (08:46)
[2017-07-08 08:55] LABS: Yeast,Urine Moderate per hpf (None Seen)
[2017-07-08] MEDS: Insulin LISPRO 300 UNITS/3 ML VIAL SQ SCH ×4 (09:00→21:25)
--- NOTE | 2017-07-08 09:24 | General Surgery Consult Note ---
<Layla Zelaya - Last Filed: 07/08/17 14:28> Date of Encounter: 07/08/17 Time of Encounter: 09:23 Assessment and Plan (1) Abnormal MRI Current Visit: Yes Status: Acute CT of the right hip without contrast which showed no acute osseous abnormality. Moderate bilateral hip, sacroiliac joint, and severe pubic synthesis degenerative changes, and a density mass in the posterior aspect of the proximal right thigh for which she was recommended to complete an MRI. The MRI notes that signal mass in the posterior aspect of the right side measuring 21.3 x 9.8 x 7.7 cm in the AP dimensions respectively on image 20 of the coronal T1 sequence and image 28 of the axial T1 sequence. The mass is contained within the posterior compartment and partially encases the sciatic nerve and significant mass effect in the hamstring musculature. 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 Unable to palpate any clear mass in the posterior thigh. Of note, patient moans loudly with any passive movement or light palpation. She does not attempt movement of neither upper or lower right extremity. Daughter reports that the primary team has ordered and MRI of the brain given her current clinical course. She is noted to have INR of 7.1 and management per primary team (s/p plasma and vit k) as well as PNA and a significant cardiac history (see HPI). At this point there is no clear urgent general surgical intervention indicated. We will follow from a distance. Please call if questions or needs arise. (2) Hypercoagulopathy Current Visit: Yes Status: Acute (3) HCAP (healthcare-associated pneumonia) Current Visit: Yes Status: Acute (4) CHF (congestive heart failure) Current Visit: Yes Status: Chronic Qualifiers: Congestive heart failure type: unspecified Congestive heart failure chronicity: chronic Qualified Code(s): I50.9 - Heart failure, unspecified (5) Afib Current Visit: No Status: Chronic Qualifiers: Atrial fibrillation type: paroxysmal Qualified Code(s): I48.0 - Paroxysmal atrial fibrillation (6) CAD (coronary artery disease) Current Visit: No Status: Chronic Qualifiers: Coronary Disease-Associated Artery/Lesion type: [place] artery [place] vs. transplanted heart: [place] heart Associated angina: without angina Qualified Code(s): I25.10 - Atherosclerotic heart disease of [place] coronary artery without angina pectoris History of Present Illness Consult date: 07/08/17 (Dr. Fred Fisher) Reason for consult: other (Leg mass) Requesting physician: Rich Tubbs History of present illness: Subjective information obtained via chart review and interview with pt's daughter at bedside as pt is currently unable to provide information Quyen is a 77-year-old female with a past medical history of COPD, CHF, pulmonary edema, coronary artery disease, atrial fibrillation, Gerd, and chronic anticoagulation (warfarin). She has a surgical history of a Lipoma 1989 and a tubal ligation in 1972. She is noted to have had a recent hospital admission on June 06 and discharged with a NSTEMI, CHF, most recent EF 30%, she had a left heart cath on 06/04 which noted 100% stenosis in the LMCA/LAD with collateral circulation noted, 50% and 60% blockages of other vessels and no intervention was completed. She presented to the emergency department on 07/05/2017 for c/o right leg pain and inability to ambulate d/t pain. Her interview with daughter and record review, the patient began having difficulty walking due to pain on Friday. The daughter states that this is a new finding for her and that since Friday her mother has only been able to "moan and cry in pain with any movement, and now she can't move her right arm." Her hospital course thus far has included a CT of the right hip without contrast which showed no acute osseous abnormality. Moderate bilateral hip, sacroiliac joint, and severe pubic synthesis degenerative changes, and a density mass in the posterior aspect of the proximal right thigh for which she was recommended to complete an MRI. The MRI notes that signal mass in the posterior aspect of the right side measuring 21.3 x 9.8 x 7.7 cm in the AP dimensions respectively on image 20 of the coronal T1 sequence and image 28 of the axial T1 sequence. The mass is contained within the posterior compartment and partially encases the sciatic nerve and significant mass effect in the hamstring musculature. 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 She is also noted to have developed a fever on 07/08/2017 of the Tmax 102F axillary and a chest x-ray which demonstrated bibasilar atelectasis versus pneumonia and possible pulmonary edema. She is being treated with vancomycin and Zosyn. Her hemoglobin is stable ranging from 7.42 8.4 this admission, there is no notable leukocytosis, her INR is elevated at 7.1 today (s/p transfusion 2 units plasma 07/06/17 and 5mg vitk today). Her daughter denies reports from her mother of headache, dizziness, chest pain, shortness of breath, diarrhea, constipation, black, bloody, or tarry stool. She denies complaints of chest pain or shortness of breath. The daughter endorses only the right hip pain and difficulty walking as previously described. She states a new finding that her mother is unable to use her right arm for which the primary team has recommended an MRI of the brain. Surgeries been asked to evaluate best books for worker recommendations regarding the mass that was seen on MRI in her right thigh. Past Med Surg Social Fam HX - Past Medical History Source: old records reviewed, obtained from family Medical history: arthritis, atrial fibrillation (On warfarin), CHF, COPD, coronary artery disease (NSTEMI 05/2018; LHC 05/2018 notes 100% LMCA/LAD w/ collaterals), GERD, hyperlipidemia, hypertension, myocardial infarction Psychiatric history: no psych history - Past Surgical History Surgical History: other (Bialteral tubal ligation and removal of fatty tumor on right shoulder; left heart cath 2017) - Social History Smoking Status: Never smoker Smokeless Tobacco Status: No Alcohol use: none Drug use: none - Family History Mother Age: 25 Living Status: Age at : 28 Cause of : [place] Hx Family Cardiac Disorders: Yes Hx Family Respiratory Disorders: No Hx Family Cancer: No Hx Family GI Disorders: No Hx Family Genitourinary Disorders: No Hx Family Endocrine Disorder: No Hx Family Musculoskeletal Disorders: No Hx Family Neuromuscular Disorders: No Hx Family Neurologic Disorders: No Hx Family HEENT Disorders: No Father Race: Family Member Ethnicity: Non- Living Status: Age at : 58 Cause of : [place] Hx Family Cardiac Disorders: Yes ([place]) Brother Race: Family Member Ethnicity: Non- Living Status: Age at : 76 Cause of : Lung cancer Hx Family Cancer: Yes (Lung) Medications and Allergies RX: Albuterol Sulfate [Albuterol Inhaler] 2 puff IH Q6H PRN 05/27/17 [History] RX: Budesonide/Formoterol 80/4.5 [Symbicort 80/4.5] 2 puff IH BID 05/27/17 [ History] RX: Amiodarone [Cordarone] 200 mg PO DAILY tablet 06/06/17 [Rx] RX: Aspirin Enteric Coated [Aspirin EC] 81 mg PO Q48H #0 tablet.dr 06/20/17 [Rx] RX: Digoxin [Lanoxin] 0.25 mg PO DAILY #30 tablet 06/20/17 [Rx] RX: Furosemide [Lasix] 20 mg PO DAILY #0 tablet 06/20/17 [Rx] RX: Isosorbide MONOnitrate (24 HR) [Imdur] 60 mg PO DAILY #30 tab.er.24h [Rx] RX: Lisinopril [Zestril] 5 mg PO DAILY #30 tablet 06/20/17 [Rx] RX: Ranitidine HCl [Heartburn Relief] 150 mg PO BID PRN #0 06/20/17 [Rx] Warfarin [Coumadin] 1.5 mg PO QPM 07/06/17 [History] 3 Allergy/AdvReac Type Severity Reaction Status Date / Time No Known Allergies Allergy Verified 07/05/17 13:12 Review of Systems ROS unobtainable: other All systems PM: A 10-system review of systems was performed and is negative for pertinent findings except as documented above in the HPI. General Surgery Exam Initial Vital Signs Temp Pulse Resp BP Pulse Ox 98.4 F 89 18 124/68 97 07/05/17 13:07 07/05/17 13:07 07/05/17 13:07 07/05/17 13:07 07/05/17 13:07 - General physical appearance moderate distress, severe pain, chronically ill, other (Does not follow commands ; moans with slightest passive movement) - Eyes other - ENT normal mucosa, poor senior care, atraumatic, normocephalic - Neck trachea midline, no venous distension - Respiratory other (Decreased bilateral) - Cardiovascular Cardiovascular exam: Present: irregular rhythm, murmurs, distant heart sounds - Abdomen Abdomen general surgery: Present: bowel sounds present, soft, non tender - Neurologic Present: other (Moans frquently. Does not answer questions or follow commands ( of note daughter states this it new d/t pain)) - Musculoskeletal Present: other (No palpable masses appreciated in the right posterior thigh. Of note, patient moans loudly with the passive movement and palpation of the area.) Exam Initial Vital Signs Temp Pulse Resp BP Pulse Ox 98.4 F 89 18 124/68 97 07/05/17 13:07 07/05/17 13:07 07/05/17 13:07 07/05/17 13:07 07/05/17 13:07 Results - Labs 07/08/17 00:55 07/08/17 00:55 Abnormal lab results RBC 2.89 M/mcL (3.82-4.97) L 07/08/17 00:55 Hgb 8.6 g/dL (11.5-15.4) L 07/08/17 00:55 Hct 26.5 % (35.3-44.9) L 07/08/17 00:55 RDW 15.2 % (11.5-14.5) H 07/08/17 00:55 PT 80.2 Seconds (9.4-12.1) H* 07/08/17 00:55 INR 7.1 H* 07/08/17 00:55 APTT 56.0 Seconds (26.0-36.0) H 07/06/17 05:59 Sodium 134 mEq/L (136-145) L 07/08/17 00:55 Chloride 93 mEq/L (98-107) L 07/08/17 00:55 Carbon Dioxide 32 mEq/L (23-29) H 07/08/17 00:55 BUN 25 mg/dL (8-23) H 07/08/17 00:55 BUN/Creatinine Ratio 31 (6-26) H 07/08/17 00:55 Glucose 177 mg/dL (70-105) H 07/08/17 00:55 POC Glucose 194 (58-89) H 07/08/17 06:53 Hemoglobin A1c 7.8 % (-5.6) H 07/08/17 00:55 ALT 66 Units/L (7-52) H 07/08/17 00:55 Albumin 2.9 g/dL (3.5-5.7) L 07/08/17 00:55 Globulin 4.1 g/dL (2.4-3.5) H 07/08/17 00:55 Albumin/Globulin Ratio 0.7 (1.1-2.2) L 07/08/17 00:55 Cholesterol 210 mg/dL (< 200) H 07/06/17 05:59 LDL Cholesterol, Calc 145 mg/dL (0-99) H 07/06/17 05:59 HDL Cholesterol 38 mg/dL (40-59) L 07/06/17 05:59 Cholesterol/HDL Ratio 5.5 (0-4.9) H 07/06/17 05:59 Urine Clarity Cloudy (Clear) A 07/08/17 08:10 Ur Specific [place] > 1.030 (1.010-1.025) H 07/08/17 08:10 Urine Protein 100 mg/dL (Neg-Trace) H 07/08/17 08:10 Urine Blood Trace (Negative) H 07/08/17 08:10 Urine Bilirubin Small (Negative) H 07/08/17 08:10 Urine Microscopic RBC 5-15 per hpf (0-3) H 07/08/17 08:10 Urine Microscopic WBC 30-50 per hpf (0-3) H 07/08/17 08:10 Ur Squamous Epith Cells Moderate per lpf (None-Few) H 07/08/17 08:10 Urine Yeast Moderate per hpf (None Seen) H 07/08/17 08:10 Diabetes panel 07/08/17 07/08/17 Range/Units 00:55 00:55 Sodium 134 L (136-145) mEq/L Potassium 3.7 (3.5-5.1) mEq/L Chloride 93 L (98-107) mEq/L Carbon Dioxide 32 H (23-29) mEq/L BUN 25 H (8-23) mg/dL Creatinine 0.81 (0.60-1.20) mg/dL Glucose 177 H (70-105) mg/dL Hemoglobin A1c 7.8 H ( - 5.6) % Calcium 8.6 (8.6-10.3) mg/dL AST 38 (13-39) Units/L ALT 66 H (7-52) Units/L Alkaline Phosphatase 46 (34-104) Units/L Albumin 2.9 L (3.5-5.7) g/dL Calcium panel 07/08/17 Range/Units 00:55 Calcium 8.6 (8.6-10.3) mg/dL Albumin 2.9 L (3.5-5.7) g/dL Pituitary panel 07/08/17 Range/Units 00:55 Sodium 134 L (136-145) mEq/L Potassium 3.7 (3.5-5.1) mEq/L Chloride 93 L (98-107) mEq/L Carbon Dioxide 32 H (23-29) mEq/L BUN 25 H (8-23) mg/dL Creatinine 0.81 (0.60-1.20) mg/dL Glucose 177 H (70-105) mg/dL Calcium 8.6 (8.6-10.3) mg/dL Adrenal panel 07/08/17 Range/Units 00:55 Sodium 134 L (136-145) mEq/L Potassium 3.7 (3.5-5.1) mEq/L Chloride 93 L (98-107) mEq/L Carbon Dioxide 32 H (23-29) mEq/L BUN 25 H (8-23) mg/dL Creatinine 0.81 (0.60-1.20) mg/dL Glucose 177 H (70-105) mg/dL Calcium 8.6 (8.6-10.3) mg/dL Total Bilirubin 0.9 (0.3-1.0) mg/dL AST 38 (13-39) Units/L ALT 66 H (7-52) Units/L Alkaline Phosphatase 46 (34-104) Units/L Albumin 2.9 L (3.5-5.7) g/dL All other labs normal. - Imaging Chest x-ray: report reviewed Additional studies: Hip X-Ray 07/05/17 13:24 IMPRESSION: No acute osseous abnormality. Moderate osteoarthritis of the hips. D/ / Niko Smart MD / Niko Smart MD Interpreting Provider: Niko Smart MD Hip CT 07/05/17 15:05 IMPRESSION: 1. No acute osseous abnormality. 2. Moderate bilateral hip, moderate bilateral sacroiliac joint, and severe pubic symphysis degenerative changes. 3. Moderate to severe multilevel degenerative changes of the visualized lower lumbar spine. 4. Partially visualized fat density mass in the posterior aspect of the proximal right thigh measuring at least 10 x 6.5 cm with thin internal septations. 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 Recommend further evaluation with nonemergent contrast-enhanced MRI of the right thigh. D/ / Jose Wright MD / Jose Wright MD Interpreting Provider: Jose Wright MD Head CT 07/05/17 18:21 IMPRESSION: No evidence of acute intracranial hemorrhage or mass effect. Chronic appearing right thalamic lacunar infarct. Paranasal sinus disease including sphenoid sinus air-fluid level. This may represent acute sinusitis in the appropriate clinical setting. Bilateral mastoid and middle ear disease. D/ / Wai Webber MD / Wai Webber MD Interpreting Provider: Wai Webber MD Femur MRI 07/07/17 08:21 IMPRESSION: 1. Large 21.3 x 9.8 x 7.7 cm fat signal mass in the posterior compartment of the right thigh with thin mildly enhancing internal septations. No nodularity identified. 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 Significant mass effect on without definite involvement of the hamstring musculature. 2. Moderate volume of fluid in the right greater trochanteric bursa. 3. Small volume of free fluid in the pelvis. D/ / Jose Wright MD / Jose Wright MD Interpreting Provider: Jose Wright MD Chest X-Ray 07/08/17 00:10 IMPRESSION: Bibasilar atelectasis or pneumonia. Possible pulmonary edema. D/ / Rishi Rogers MD / Rishi Rogers MD Interpreting Provider: Rishi Rogers MD Consult Discharge Plan - Plan Referrals: Barbra Juarez MD [Primary Care Provider] - Prince Wolf MD [Family Provider] - <Fred Fisher J - Last Filed: 07/08/17 16:59> Date of Encounter: 07/08/17 Review of Systems All systems PM: A 10-system review of systems was performed and is negative for pertinent findings except as documented above in the HPI. General Surgery Exam Initial Vital Signs Temp Pulse Resp BP Pulse Ox 98.4 F 89 18 124/68 97 07/05/17 13:07 07/05/17 13:07 07/05/17 13:07 07/05/17 13:07 07/05/17 13:07 Exam Initial Vital Signs Temp Pulse Resp BP Pulse Ox 98.4 F 89 18 124/68 97 07/05/17 13:07 07/05/17 13:07 07/05/17 13:07 07/05/17 13:07 07/05/17 13:07 Results - Labs 07/08/17 00:55 07/08/17 00:55 Abnormal lab results RBC 2.89 M/mcL (3.82-4.97) L 07/08/17 00:55 Hgb 8.6 g/dL (11.5-15.4) L 07/08/17 00:55 Hct 26.5 % (35.3-44.9) L 07/08/17 00:55 RDW 15.2 % (11.5-14.5) H 07/08/17 00:55 PT 80.2 Seconds (9.4-12.1) H* 07/08/17 00:55 INR 7.1 H* 07/08/17 00:55 APTT 56.0 Seconds (26.0-36.0) H 07/06/17 05:59 Sodium 134 mEq/L (136-145) L 07/08/17 00:55 Chloride 93 mEq/L (98-107) L 07/08/17 00:55 Carbon Dioxide 32 mEq/L (23-29) H 07/08/17 00:55 BUN 25 mg/dL (8-23) H 07/08/17 00:55 BUN/Creatinine Ratio 31 (6-26) H 07/08/17 00:55 Glucose 177 mg/dL (70-105) H 07/08/17 00:55 POC Glucose 158 (58-89) H 07/08/17 11:03 Hemoglobin A1c 7.8 % (-5.6) H 07/08/17 00:55 ALT 66 Units/L (7-52) H 07/08/17 00:55 Albumin 2.9 g/dL (3.5-5.7) L 07/08/17 00:55 Globulin 4.1 g/dL (2.4-3.5) H 07/08/17 00:55 Albumin/Globulin Ratio 0.7 (1.1-2.2) L 07/08/17 00:55 Cholesterol 210 mg/dL (< 200) H 07/06/17 05:59 LDL Cholesterol, Calc 145 mg/dL (0-99) H 07/06/17 05:59 HDL Cholesterol 38 mg/dL (40-59) L 07/06/17 05:59 Cholesterol/HDL Ratio 5.5 (0-4.9) H 07/06/17 05:59 Urine Clarity Cloudy (Clear) A 07/08/17 08:10 Ur Specific [place] > 1.030 (1.010-1.025) H 07/08/17 08:10 Urine Protein 100 mg/dL (Neg-Trace) H 07/08/17 08:10 Urine Blood Trace (Negative) H 07/08/17 08:10 Urine Bilirubin Small (Negative) H 07/08/17 08:10 Urine Microscopic RBC 5-15 per hpf (0-3) H 07/08/17 08:10 Urine Microscopic WBC 30-50 per hpf (0-3) H 07/08/17 08:10 Ur Squamous Epith Cells Moderate per lpf (None-Few) H 07/08/17 08:10 Urine Yeast Moderate per hpf (None Seen) H 07/08/17 08:10 Diabetes panel 07/08/17 07/08/17 Range/Units 00:55 00:55 Sodium 134 L (136-145) mEq/L Potassium 3.7 (3.5-5.1) mEq/L Chloride 93 L (98-107) mEq/L Carbon Dioxide 32 H (23-29) mEq/L BUN 25 H (8-23) mg/dL Creatinine 0.81 (0.60-1.20) mg/dL Glucose 177 H (70-105) mg/dL Hemoglobin A1c 7.8 H ( - 5.6) % Calcium 8.6 (8.6-10.3) mg/dL AST 38 (13-39) Units/L ALT 66 H (7-52) Units/L Alkaline Phosphatase 46 (34-104) Units/L Albumin 2.9 L (3.5-5.7) g/dL Calcium panel 07/08/17 Range/Units 00:55 Calcium 8.6 (8.6-10.3) mg/dL Albumin 2.9 L (3.5-5.7) g/dL Pituitary panel 07/08/17 Range/Units 00:55 Sodium 134 L (136-145) mEq/L Potassium 3.7 (3.5-5.1) mEq/L Chloride 93 L (98-107) mEq/L Carbon Dioxide 32 H (23-29) mEq/L BUN 25 H (8-23) mg/dL Creatinine 0.81 (0.60-1.20) mg/dL Glucose 177 H (70-105) mg/dL Calcium 8.6 (8.6-10.3) mg/dL Adrenal panel 07/08/17 Range/Units 00:55 Sodium 134 L (136-145) mEq/L Potassium 3.7 (3.5-5.1) mEq/L Chloride 93 L (98-107) mEq/L Carbon Dioxide 32 H (23-29) mEq/L BUN 25 H (8-23) mg/dL Creatinine 0.81 (0.60-1.20) mg/dL Glucose 177 H (70-105) mg/dL Calcium 8.6 (8.6-10.3) mg/dL Total Bilirubin 0.9 (0.3-1.0) mg/dL AST 38 (13-39) Units/L ALT 66 H (7-52) Units/L Alkaline Phosphatase 46 (34-104) Units/L Albumin 2.9 L (3.5-5.7) g/dL All other labs normal. - Attending Attestation I have personally seen and examined the patient. I have reviewed pertinent labs , imaging, progress notes, including this one. I agree with the above assessment and plan and wish to include the following... 77F with sudden motor deficit of RLE found to have RLE mass and acute lacunar infarcts on MRI. Mass is compressive and no infiltrative. No obvious deformties on exam; In light of neurological events occurring I would not pursue surgical intervention at present. Recommend core biopsy of lesion to get a definitive diagnosis. If an incisional biopsy is needed, again, i would wait until she is recovered from this acute period prior to scheduling for any surgical intervention. Please follow up in my general surgery clinic 2 weeks after discharge for further work up or discussion of biopsy results.
[2017-07-08] MEDS: Silvasorb 44.4 ML TUBE TP SCH (14:08)
--- NOTE | 2017-07-08 17:10 | Neurology - Consult Note ---
<NathanielJose Alberto moran - Last Filed: 07/08/17 17:40> Date of Encounter: 07/08/17 Time of Encounter: 17:05 Assessment and Plan (1) Altered mental status Current Visit: Yes Status: Acute patient came in with right hip pain. Overnight was febrile and had antibiotics started. CXR showed bibasilar atalectasis, patient is now on vanc and zosyn. Now is altered and slightly agitated. possible concern for aspiration in setting of altered mental status. MRI brain done for lower extremity weakness, which showed multiple acute small infarcts bilaterally Etiology of altered mental status likely infectious cause from PNA. Patients current INR is supratherapeutic at 7.1 Plan: continue ABX per primary team PT/OT resume warfarin when coagulopathy is resolved. continue statin Echo, carotid doppler. Qualifiers: Altered mental status type: unspecified Qualified Code(s): R41.82 - Altered mental status, unspecified (2) Lacunar infarct, acute Current Visit: Yes Status: Acute plan as above History of Present Illness Chief complaint: lacunar strokes HPI: Ms. New is a 77 year old female with PMhx of arthritis, CHF, COPD, Afib (on coumadin). patient arrived with chief complaint of right hip pain that was radiating down the leg, and was found to have supratherapeutic INR. She was admitted for further workup. CT right hip without contrast showed no osseous abnormality, but showed fat density in posterior aspect of right proximal thigh. Surgery is now on board for this. She is also being treated for HCAP with vanc and zosyn. Antibiotics were stated last night due to fever of 102. CXR showed bibasilar pneumonia. Today, patient was having weakness in her lower extremity for which MRI brain was ordered. Neuro consult was made for multiple lacunar infarcts. Upon examination today, patient was laying in bed yelling in pain, and moaning. she does respond to painful stimuli, but could not give history. her daughter was at bedside and stated that this is very unusual for patient, and she has never acted like this before. ROS was unobtainable due to altered mental status. Past Med Surg Social Fam HX - Past Medical History Medical history: arthritis, atrial fibrillation (On warfarin), CHF, COPD, coronary artery disease (NSTEMI 05/2018; C 05/2018 notes 100% LMCA/LAD w/ collaterals), GERD, hyperlipidemia, hypertension, myocardial infarction Psychiatric history: no psych history - Past Surgical History Surgical History: other (Bialteral tubal ligation and removal of fatty tumor on right shoulder; left heart cath 2017) - Social History Smoking Status: Never smoker Smokeless Tobacco Status: No Alcohol use: none Drug use: none - Family History Mother Age: 25 Living Status: Age at : 28 Cause of : [place] Hx Family Cardiac Disorders: Yes Hx Family Respiratory Disorders: No Hx Family Cancer: No Hx Family GI Disorders: No Hx Family Genitourinary Disorders: No Hx Family Endocrine Disorder: No Hx Family Musculoskeletal Disorders: No Hx Family Neuromuscular Disorders: No Hx Family Neurologic Disorders: No Hx Family HEENT Disorders: No Father Race: Family Member Ethnicity: Non- Living Status: Age at : 58 Cause of : [place] Hx Family Cardiac Disorders: Yes ([place]) Brother Race: Family Member Ethnicity: Non- Living Status: Age at : 76 Cause of : Lung cancer Hx Family Cancer: Yes (Lung) Medications and Allergies Albuterol Sulfate [Albuterol Inhaler] 2 puff IH Q6H PRN 05/27/17 [History] Budesonide/Formoterol 80/4.5 [Symbicort 80/4.5] 2 puff IH BID 05/27/17 [History ] Amiodarone [Cordarone] 200 mg PO DAILY tablet 06/06/17 [Rx] Aspirin Enteric Coated [Aspirin EC] 81 mg PO Q48H #0 tablet.dr 06/20/17 [Rx] Digoxin [Lanoxin] 0.25 mg PO DAILY #30 tablet 06/20/17 [Rx] Furosemide [Lasix] 20 mg PO DAILY #0 tablet 06/20/17 [Rx] Isosorbide MONOnitrate (24 HR) [Imdur] 60 mg PO DAILY #30 tab.er.24h 06/20/17 [ Rx] Lisinopril [Zestril] 5 mg PO DAILY #30 tablet 06/20/17 [Rx] Ranitidine HCl [Heartburn Relief] 150 mg PO BID PRN #0 06/20/17 [Rx] Warfarin [Coumadin] 1.5 mg PO QPM 07/06/17 [History] 3 Allergy/AdvReac Type Severity Reaction Status Date / Time No Known Allergies Allergy Verified 07/05/17 13:12 ROS unobtainable: due to mental status All Systems: A 10-system review of systems was performed and is negative for pertinent findings except as documented above in the HPI. Physical Examination - Vital Signs Vital Signs: Initial Vital Signs Temp Pulse Resp BP Pulse Ox 98.4 F 89 18 124/68 97 07/05/17 13:07 07/05/17 13:07 07/05/17 13:07 07/05/17 13:07 07/05/17 13:07 - Constitutional General appearance: acutely ill, other (laying in bed moaning, does not answer questions, does not follow commands. ) - Neurologic Sensorimotor examination: other (proper sensorimotor exam could not be done due to altered mental status. patient had her eyes shut and refused to open them so pupillary exam could not be done.) Detailed sensory examination: pain Mental Status Examination: awake, lethargic, agitated, opens eyes to noxious stimulation Results - Laboratory Findings CBC and BMP: 07/08/17 00:55 07/08/17 00:55 Abnormal lab findings: Abnormal lab results RBC 2.89 M/mcL (3.82-4.97) L 07/08/17 00:55 Hgb 8.6 g/dL (11.5-15.4) L 07/08/17 00:55 Hct 26.5 % (35.3-44.9) L 07/08/17 00:55 RDW 15.2 % (11.5-14.5) H 07/08/17 00:55 PT 80.2 Seconds (9.4-12.1) H* 07/08/17 00:55 INR 7.1 H* 07/08/17 00:55 APTT 56.0 Seconds (26.0-36.0) H 07/06/17 05:59 Sodium 134 mEq/L (136-145) L 07/08/17 00:55 Chloride 93 mEq/L (98-107) L 07/08/17 00:55 Carbon Dioxide 32 mEq/L (23-29) H 07/08/17 00:55 BUN 25 mg/dL (8-23) H 07/08/17 00:55 BUN/Creatinine Ratio 31 (6-26) H 07/08/17 00:55 Glucose 177 mg/dL (70-105) H 07/08/17 00:55 POC Glucose 158 (58-89) H 07/08/17 11:03 Hemoglobin A1c 7.8 % (-5.6) H 07/08/17 00:55 ALT 66 Units/L (7-52) H 07/08/17 00:55 Albumin 2.9 g/dL (3.5-5.7) L 07/08/17 00:55 Globulin 4.1 g/dL (2.4-3.5) H 07/08/17 00:55 Albumin/Globulin Ratio 0.7 (1.1-2.2) L 07/08/17 00:55 Cholesterol 210 mg/dL (< 200) H 07/06/17 05:59 LDL Cholesterol, Calc 145 mg/dL (0-99) H 07/06/17 05:59 HDL Cholesterol 38 mg/dL (40-59) L 07/06/17 05:59 Cholesterol/HDL Ratio 5.5 (0-4.9) H 07/06/17 05:59 Urine Clarity Cloudy (Clear) A 07/08/17 08:10 Ur Specific [place] > 1.030 (1.010-1.025) H 07/08/17 08:10 Urine Protein 100 mg/dL (Neg-Trace) H 07/08/17 08:10 Urine Blood Trace (Negative) H 07/08/17 08:10 Urine Bilirubin Small (Negative) H 07/08/17 08:10 Urine Microscopic RBC 5-15 per hpf (0-3) H 07/08/17 08:10 Urine Microscopic WBC 30-50 per hpf (0-3) H 07/08/17 08:10 Ur Squamous Epith Cells Moderate per lpf (None-Few) H 07/08/17 08:10 Urine Yeast Moderate per hpf (None Seen) H 07/08/17 08:10 Consult Discharge Plan - Plan Referrals: Barbra Juarez MD [Primary Care Provider] - Prince Wolf MD [Family Provider] - <Thom Valdes - Last Filed: 07/08/17 17:56> Date of Encounter: 07/08/17 Time of Encounter: 17:44 Assessment and Plan (1) Altered mental status Current Visit: Yes Status: Acute I believe that this patient's altered mental status is almost certainly secondary to underlying infectious process. It is a bit more of a challenge to understand or explain why she would have had multiple bilateral scattered lacunar infarcts. Ordinarily would not expect an embolic phenomenon to result in this type of event. She has not had extremely elevated hypertension. In any regard carotid Doppler study has been ordered. She is as already been on anticoagulation for history of atrial fibrillation. Anticoagulation has been stopped because the INR was supratherapeutic. Would give aspirin 325 mg in lieu of the acute infarcts. However aspirin 80 discontinued once she is in a position to go back on anticoagulation. Stroke protocol orders should remain. Agree with statins antihypertensives for management of stroke risk factors. I will reevaluate her in the morning. Qualifiers: Altered mental status type: unspecified Qualified Code(s): R41.82 - Altered mental status, unspecified History of Present Illness HPI: Ms. New is a 77 year old female seen for neurologic consultation secondary to an abnormal MRI. The case was discussed with the neurology resident, patient was seen and examined along with the resident. Agree with her assessment as stated above. I will like that however the patient does seem to have some paucity of movement of the right upper extremity as well. MRI scan of the brain does reveal a few scattered lacunar infarcts in the centrum semiovale. All Systems: A 10-system review of systems was performed and is negative for pertinent findings except as documented above in the HPI. Physical Examination - Vital Signs Vital Signs: Initial Vital Signs Temp Pulse Resp BP Pulse Ox 98.4 F 89 18 124/68 97 07/05/17 13:07 07/05/17 13:07 07/05/17 13:07 07/05/17 13:07 07/05/17 13:07 - Constitutional General appearance: other - Neurologic Sensorimotor examination: other Detailed motor examination: other (Patient moves the left upper extremity freely. She has paucity of movement of the right upper extremity. She has minimal withdrawal to plantar stimulation of both lower extremities.) Mental Status Examination: does not follow commands, delerious, localizes noxious stimulation, inattentive Results - Laboratory Findings CBC and BMP: 07/08/17 00:55 07/08/17 00:55 Abnormal lab findings: Abnormal lab results RBC 2.89 M/mcL (3.82-4.97) L 07/08/17 00:55 Hgb 8.6 g/dL (11.5-15.4) L 07/08/17 00:55 Hct 26.5 % (35.3-44.9) L 07/08/17 00:55 RDW 15.2 % (11.5-14.5) H 07/08/17 00:55 PT 80.2 Seconds (9.4-12.1) H* 07/08/17 00:55 INR 7.1 H* 07/08/17 00:55 APTT 56.0 Seconds (26.0-36.0) H 07/06/17 05:59 Sodium 134 mEq/L (136-145) L 07/08/17 00:55 Chloride 93 mEq/L (98-107) L 07/08/17 00:55 Carbon Dioxide 32 mEq/L (23-29) H 07/08/17 00:55 BUN 25 mg/dL (8-23) H 07/08/17 00:55 BUN/Creatinine Ratio 31 (6-26) H 07/08/17 00:55 Glucose 177 mg/dL (70-105) H 07/08/17 00:55 POC Glucose 192 (58-89) H 07/08/17 17:01 Hemoglobin A1c 7.8 % (-5.6) H 07/08/17 00:55 ALT 66 Units/L (7-52) H 07/08/17 00:55 Albumin 2.9 g/dL (3.5-5.7) L 07/08/17 00:55 Globulin 4.1 g/dL (2.4-3.5) H 07/08/17 00:55 Albumin/Globulin Ratio 0.7 (1.1-2.2) L 07/08/17 00:55 Cholesterol 210 mg/dL (< 200) H 07/06/17 05:59 LDL Cholesterol, Calc 145 mg/dL (0-99) H 07/06/17 05:59 HDL Cholesterol 38 mg/dL (40-59) L 07/06/17 05:59 Cholesterol/HDL Ratio 5.5 (0-4.9) H 07/06/17 05:59 Urine Clarity Cloudy (Clear) A 07/08/17 08:10 Ur Specific [place] > 1.030 (1.010-1.025) H 07/08/17 08:10 Urine Protein 100 mg/dL (Neg-Trace) H 07/08/17 08:10 Urine Blood Trace (Negative) H 07/08/17 08:10 Urine Bilirubin Small (Negative) H 07/08/17 08:10 Urine Microscopic RBC 5-15 per hpf (0-3) H 07/08/17 08:10 Urine Microscopic WBC 30-50 per hpf (0-3) H 07/08/17 08:10 Ur Squamous Epith Cells Moderate per lpf (None-Few) H 07/08/17 08:10 Urine Yeast Moderate per hpf (None Seen) H 07/08/17 08:10
[2017-07-09] MEDS: Piperacillin/Tazobactam 3.375 GM/200 ML BAG IVPB SCH (00:09)
[2017-07-09] MEDS: *HR* HYDROmorphone (PF) 1 MG/ML SYRINGE IVP PRN ×4 (02:13→22:24)
[2017-07-09 04:52] LABS: Eosinophils % 0.2 %; Hemoglobin 7.7 g/dL (11.5-15.4); Immature Granulocytes % 0.5 % (0-4); Lymphocytes % 12.1 %; Mean Corpuscular HGB Conc 30.8 g/dL (31.6-35.5); Mean Corpuscular Hemoglobin 28.5 pg (28.0-33.3); Mean Corpuscular Volume 92.6 fL (83.0-100.0); Mean Platelet Volume 9.3 fL (9.4-12.4); Monocytes # 1.1 K/mcL (0.0-1.3); Monocytes % 13.1 %; Neutrophils # 6.1 K/mcL (1.6-8.9); Nucleated Red Blood Cells 0.4 /100 WBC (0); Platelet Count 246 K/mcL (140-400); Red Cell Distribution Width 15.4 % (11.5-14.5); Segmented Neutrophils % 74.1 %
[2017-07-09] MEDS ORDERED: Vancomycin 1,000 MG in D5% in Water 250 ML IVPB SCH (05:00)
[2017-07-09 05:11] LABS: Alanine Aminotransferase 47 Units/L (7-52); Albumin 2.5 g/dL (3.5-5.7); Albumin/Globulin Ratio 0.7 (1.1-2.2); Alkaline Phosphatase 38 Units/L (34-104); Aspartate Amino Transferase 24 Units/L (13-39); BUN/Creatinine Ratio 34 (6-26); Bilirubin,Total 0.9 mg/dL (0.3-1.0); Blood Urea Nitrogen 28 mg/dL (8-23); Calcium 8.2 mg/dL (8.6-10.3); Carbon Dioxide 36 mEq/L (23-29); Chloride 97 mEq/L (98-107); Globulin 3.7 g/dL (2.4-3.5); Glucose 169 mg/dL (70-105); Osmolality,Calculated 293 (280-300); Potassium 3.8 mEq/L (3.5-5.1); Sodium 137 mEq/L (136-145); Total Protein 6.2 g/dL (6.4-8.9); eGFR For African Americans > 60 (> 60); eGFR For Non-African Americans > 60 (> 60)
[2017-07-09] MEDS ORDERED: Piperacillin/Tazobactam 3.375 GM/200 ML BAG IVPB SCH (08:00)
[2017-07-09 09:18] LABS: Enterococcus by PCR Not Detected (Not Detect); blaKPC Carbapenem-Resist Gene Not Detected (Not Detect); mecA Methicillin-Resist Gene ***DETECTED*** (Not Detect); vanA/B Vancomycin-Resist Genes Not Detected (Not Detect)
[2017-07-09 09:19] LABS: Acinetobacter baumannii by PCR Not Detected (Not Detect); Candida albicans by PCR Not Detected (Not Detect); Candida glabrata by PCR Not Detected (Not Detect); Candida krusei by PCR Not Detected (Not Detect); Candida parapsilosis by PCR Not Detected (Not Detect); Candida tropicalis by PCR Not Detected (Not Detect); Escherichia coli by PCR Not Detected (Not Detect); Klebsiella oxytoca by PCR Not Detected (Not Detect); Klebsiella pneumoniae by PCR Not Detected (Not Detect); Pseudomonas aeruginosa by PCR Not Detected (Not Detect); Serratia marcescens by PCR Not Detected (Not Detect); Staphylococcus aureus by PCR ***DETECTED*** (Not Detect); Streptococcus agalactiae(B)PCR Not Detected (Not Detect); Streptococcus by PCR Not Detected (Not Detect); Streptococcus pneumoniae PCR Not Detected (Not Detect); Streptococcus pyogenes (A) PCR Not Detected (Not Detect)
[2017-07-09] MEDS: Insulin LISPRO 300 UNITS/3 ML VIAL SQ SCH ×4 (09:52→22:24)
[2017-07-09] MEDS: *HR* Amiodarone 200 MG TABLET PO SCH (09:54)
[2017-07-09] MEDS: *HR* Digoxin 0.25 MG TABLET PO SCH (09:54)
[2017-07-09] MEDS: Isosorbide MONOnitrate (24 HR) 60 MG TAB.ER.24H PO SCH (09:54)
[2017-07-09] MEDS: Silvasorb 44.4 ML TUBE TP SCH (09:55)
[2017-07-09 13:36] LABS: INR 1.5; Prothrombin Time 16.8 Seconds (9.4-12.1)
--- NOTE | 2017-07-09 13:44 | Internal Med Progress Note ---
Date of Encounter: 07/09/17 Time of Encounter: 13:41 - Assessment and plan (1) HCAP (healthcare-associated pneumonia) Current Visit: Yes Status: Acute Assessment and plan: Continue vancomycin day 2 and discontinue Zosyn. *Cefepime to minimize the possibility of acute renal failure Chest x-ray showed bilateral opacities and bases compatible with possible pneumonia Tylenol for fevers. (2) MRSA bacteremia Current Visit: Yes Status: Acute Assessment and plan: Recurrent Check echocardiogram, consider possible endocarditis Continue vancomycin day 2 (3) Lipoma Current Visit: Yes Status: Acute Assessment and plan: MRI of the right femur showed a large 21.3 x 9.8 x 7.7 cm fat signal mass. Not exactly sure this is the cause of her issues. No intervention for now per sergery service (4) CAITLYN (acute kidney injury) Current Visit: No Status: Resolved Assessment and plan: Hold Lasix and lisinopril . Improving. mild hydration Based creatinine was 0.57 and increased almost to double 1.02 Heart catheter in May 2017 showed severe 2 vessel disease with an EF of 35 %. . (5) Afib Current Visit: No Status: Chronic Assessment and plan: Continue amiodarone and discontinue digoxin. INR is up to 7.1. Received Bactrim prior to coming to the hospital. There are no obvious signs of bleeding. Was given 5 mg of IV vitamin K. Hold Coumadin Qualifiers: Atrial fibrillation type: paroxysmal Qualified Code(s): I48.0 - Paroxysmal atrial fibrillation (6) Right hip pain Current Visit: Yes Status: Acute Assessment and plan: No complain of generalized pain Due to bacteremia, consider epidural abscess, check a CT scan of the cervical, thoracic and lumbar areas Consider starting prednisone for polymyalgia rheumatica if CT scans are negative MRI of the right femur showed a large 21.3 x 9.8 x 7.7 cm fat signal mass. . (7) Supratherapeutic INR Current Visit: Yes Status: Acute (8) COPD (chronic obstructive pulmonary disease) Current Visit: Yes Status: Chronic Assessment and plan: Stable Qualifiers: COPD type: unspecified COPD Qualified Code(s): J44.9 - Chronic obstructive pulmonary disease, unspecified (9) CHF (congestive heart failure) Current Visit: Yes Status: Chronic Assessment and plan: No signs of hypervolemia. The patient is stable. Qualifiers: Congestive heart failure type: systolic Congestive heart failure chronicity : chronic Qualified Code(s): I50.22 - Chronic systolic (congestive) heart failure (10) Stage II pressure ulcer of buttock Current Visit: Yes Status: Acute Assessment and plan: per nursing. consult wound care. Qualifiers: Laterality: left Qualified Code(s): L89.322 - Pressure ulcer of left buttock, stage 2 (11) Lacunar infarct, acute Current Visit: Yes Status: Acute Assessment and plan: MRI of the brain showed:Multiple, small infarcts in the bilateral mcdowell radiata and centrum semiovale are compatible with bilateral acute lacunar infarcts. 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% Check echocardiogram Echocardiogram performed on April showed an ejection fraction of 30% with severe systolic dysfunction and severe diastolic dysfunction - Subjective Interval history: Very confused, disoriented in time and place, complaining of severe pain everywhere, unable to complete review of systems due to the patient's confusion - Constitutional Vitals: Temp Pulse Resp BP Pulse Ox 99.1 F 81 20 162/65 91 07/09/17 11:45 07/09/17 11:45 07/09/17 11:45 07/09/17 11:45 07/09/17 11:45 General appearance: Present: cooperative, A&O X 1, mild distress, pleasant, obese, answers questions appropriately - Head Head exam: Present: atraumatic, normocephalic - Eye Eye exam: Present: PERRL, conjuntiva pink, sclera anicteric Pupils: Present: PERRL - Neck Neck exam general surgery: Present: supple, trachea midline. Absent: lymphadenopathy - Respiratory Respiratory exam: Present: decreased breath sounds, CTAB. Absent: accessory muscle use, rales, rhonchi, wheezes - Cardiovascular Cardiovascular exam: Present: RRR, +S1, +S2. Absent: diastolic murmur, gallop, rubs, systolic murmur - GI/Abdominal GI/Abdominal exam: Present: distended, normal bowel sounds, soft, no peritoneal signs. Absent: tenderness - Extremities Exam Extremities exam: Present: warm, radial pulses palpable and symmetrical. Absent : calf tenderness, cyanotic, pedal edema - Neurological Exam Neurological exam: Present: CN II-XII intact, no focal deficits. Absent: oriented X3, pronater drift, facial droop, speech deficit - Skin Skin exam: Present: dry, intact Additional comments: Complains of pain everywhere every time she moves her legs and arms Internal Medicine: Result - Labs CBC & Chem 7: 07/09/17 04:40 07/09/17 04:40 Labs: Short CBC 07/09/17 Range/Units 04:40 WBC 8.3 (4.3-11.1) K/mcL Hgb 7.7 L (11.5-15.4) g/dL Hct 25.0 L (35.3-44.9) % Plt Count 246 (140-400) K/mcL Neutrophils # 6.1 (1.6-8.9) K/mcL BMP 07/09/17 04:40 Sodium 137 Potassium 3.8 Chloride 97 L Carbon Dioxide 36 H BUN 28 H Creatinine 0.82 Glucose 169 H Calcium 8.2 L Liver Function 07/09/17 Range/Units 04:40 Total Bilirubin 0.9 (0.3-1.0) mg/dL AST 24 (13-39) Units/L ALT 47 (7-52) Units/L Alkaline Phosphatase 38 (34-104) Units/L Albumin 2.5 L (3.5-5.7) g/dL - ABG Interpretation ABG results: PT/INR, D-dimer PT 16.8 Seconds (9.4-12.1) H D 07/09/17 13:24 - Impressions Impressions Brain MRI 07/08/17 08:29 IMPRESSION: Multiple, small infarcts in the bilateral mcdowell radiata and centrum semiovale are compatible with bilateral acute lacunar infarcts. Mild background chronic microvascular ischemic disease. D/ / 07/08/2017 13:58:27 Juan Jose Ojeda MD / geoff Interpreting Provider: Juan Jose Ojeda MD Consult Discharge Plan - Plan Referrals: Barbra Juarez MD [Primary Care Provider] - Prince Wolf MD [Family Provider] -
[2017-07-09] MEDS: 0.9 % Sodium Chloride 1,000 ML IVC SCH (15:54)
[2017-07-09] MEDS: Cefepime HCl 1,000 MG in Water for inj. (sterile) 10 ML IVP SCH (15:54)
--- NOTE | 2017-07-09 16:35 | Neurology Progress Note ---
Date of Encounter: 07/09/17 Time of Encounter: 16:31 Assessment and Plan (1) Altered mental status Current Visit: Yes Status: Acute Qualifiers: Altered mental status type: unspecified Qualified Code(s): R41.82 - Altered mental status, unspecified (2) Acute cerebral infarction Current Visit: Yes Status: Acute The MRI scan of the head yesterday revealed acute bilateral ischemic infarcts in the centrum semiovale ovale. She does have right upper and right lower extremity weakness. Carotid duplex Doppler study reveals 60-79% stenosis of the left internal carotid artery, an echocardiogram in April of last year revealed an ejection fraction of 30%. She will need to be on long-term anticoagulation. I would consider Lovenox while she is in the hospital and then restart her Coumadin at some point in time. We will also recommend vascular consultation to determine whether or not she might be an appropriate candidate for carotid endarterectomy at some point in time in the future. Risk factor management is paramount. Maintain stroke protocol orders. Subjective Interval history: The chart was reviewed, patient was seen and examined. The patient looks much better today as far as alertness. However she is very emotional. She does make eye contact and follows commands and answers questions. Carotid duplex Doppler study reveals 60-79% stenosis of the left internal carotid artery. She also had an echocardiogram completed in April 2017 which revealed an ejection fraction of 30% with systolic as well as diastolic dysfunction. She continues to have weakness of the right upper and right lower extremity. Perhaps they have been dealing with an embolic event perhaps cardioembolic or thromboembolic. Objective - Constitutional Vitals: Temp Pulse Resp BP Pulse Ox 99.2 F 83 18 183/65 91 07/09/17 16:00 07/09/17 16:00 07/09/17 16:00 07/09/17 16:00 07/09/17 16:00 - Neurological Exam Sensorimotor examination: Present: other Motor Examination: Present: other (She does have paucity of movement of the right upper extremity and little to no movement of the right lower extremity. She moves the left upper and left lower extremities freely. No involuntary movements or atrophy are present.) Sensation intact: Present: pain Mental Status Examination: Present: awake, alert, oriented to person, oriented to place, does not follow commands. Absent: follows commands appropriately ( Follows some commands but not all.), answers questions appropriately Cranial nerve examination: Present: PERRL, EOMI, visual baez intact, sensory to face intact, mastication intact, no facial asymmetry is present Results - Laboratory Findings CBC and BMP: 07/09/17 04:40 07/09/17 04:40 Abnormal lab findings: Abnormal lab results RBC 2.70 M/mcL (3.82-4.97) L 07/09/17 04:40 Hgb 7.7 g/dL (11.5-15.4) L 07/09/17 04:40 Hct 25.0 % (35.3-44.9) L 07/09/17 04:40 MCHC 30.8 g/dL (31.6-35.5) L 07/09/17 04:40 RDW 15.4 % (11.5-14.5) H 07/09/17 04:40 MPV 9.3 fL (9.4-12.4) L 07/09/17 04:40 Nucleated RBCs/100 WBC 0.4 /100 WBC (0) H 07/09/17 04:40 PT 16.8 Seconds (9.4-12.1) H D 07/09/17 13:24 APTT 56.0 Seconds (26.0-36.0) H 07/06/17 05:59 Chloride 97 mEq/L (98-107) L 07/09/17 04:40 Carbon Dioxide 36 mEq/L (23-29) H 07/09/17 04:40 BUN 28 mg/dL (8-23) H 07/09/17 04:40 BUN/Creatinine Ratio 34 (6-26) H 07/09/17 04:40 Glucose 169 mg/dL (70-105) H 07/09/17 04:40 POC Glucose 242 (58-89) H 07/09/17 07:17 Hemoglobin A1c 7.8 % (-5.6) H 07/08/17 00:55 Calcium 8.2 mg/dL (8.6-10.3) L 07/09/17 04:40 Serum Total Protein 6.2 g/dL (6.4-8.9) L 07/09/17 04:40 Albumin 2.5 g/dL (3.5-5.7) L 07/09/17 04:40 Globulin 3.7 g/dL (2.4-3.5) H 07/09/17 04:40 Albumin/Globulin Ratio 0.7 (1.1-2.2) L 07/09/17 04:40 Cholesterol 210 mg/dL (< 200) H 07/06/17 05:59 LDL Cholesterol, Calc 145 mg/dL (0-99) H 07/06/17 05:59 HDL Cholesterol 38 mg/dL (40-59) L 07/06/17 05:59 Cholesterol/HDL Ratio 5.5 (0-4.9) H 07/06/17 05:59 Urine Clarity Cloudy (Clear) A 07/08/17 08:10 Ur Specific [place] > 1.030 (1.010-1.025) H 07/08/17 08:10 Urine Protein 100 mg/dL (Neg-Trace) H 07/08/17 08:10 Urine Blood Trace (Negative) H 07/08/17 08:10 Urine Bilirubin Small (Negative) H 07/08/17 08:10 Urine Microscopic RBC 5-15 per hpf (0-3) H 07/08/17 08:10 Urine Microscopic WBC 30-50 per hpf (0-3) H 07/08/17 08:10 Ur Squamous Epith Cells Moderate per lpf (None-Few) H 07/08/17 08:10 Urine Yeast Moderate per hpf (None Seen) H 07/08/17 08:10 Staphylococcus sp PCR DETECTED (Not Detect) A 07/08/17 00:55 Staph aureus (PCR) DETECTED (Not Detect) A 07/08/17 00:55 mecA-Methicil Res Gene DETECTED (Not Detect) A 07/08/17 00:55 Consult Discharge Plan - Plan Referrals: Barbra Juarez MD [Primary Care Provider] - Prince Wolf MD [Family Provider] -
[2017-07-09] MEDS ORDERED: *HR* Warfarin 1 MG TABLET PO ONE (19:30)
[2017-07-09] MEDS ORDERED: *HR* LORazepam 2 MG/ML VIAL IVP ONE (20:11)
[2017-07-09] MEDS: predniSONE 20 MG TABLET PO SCH (22:23)
[2017-07-09] MEDS: Aspirin Enteric Coated 81 MG Tablet PO SCH (22:23)
[2017-07-09] MEDS: *HR* Enoxaparin 80 MG/0.8 ML SYRINGE SQ SCH (22:24)
[2017-07-10] MEDS: *HR* OxyCODONE Immed Rel 5 MG TABLET PO PRN ×2 (00:32→13:15)
[2017-07-10] MEDS: *HR* HYDROmorphone (PF) 1 MG/ML SYRINGE IVP PRN ×2 (03:45→11:04)
[2017-07-10 04:33] LABS: INR 1.5; Prothrombin Time 16.8 Seconds (9.4-12.1)
[2017-07-10 04:46] LABS: Hematocrit 23.1 % (35.3-44.9); Hemoglobin 7.2 g/dL (11.5-15.4); Immature Granulocytes % 0.4 % (0-4); Lymphocytes # 0.5 K/mcL (0.6-4.6); Lymphocytes % 6.5 %; Mean Corpuscular HGB Conc 31.2 g/dL (31.6-35.5); Mean Corpuscular Hemoglobin 29.1 pg (28.0-33.3); Mean Corpuscular Volume 93.5 fL (83.0-100.0); Monocytes # 0.5 K/mcL (0.0-1.3); Monocytes % 6.9 %; Neutrophils # 6.6 K/mcL (1.6-8.9); Platelet Count 248 K/mcL (140-400); Red Blood Count 2.47 M/mcL (3.82-4.97); Red Cell Distribution Width 15.5 % (11.5-14.5); Segmented Neutrophils % 86.2 %
[2017-07-10 05:03] LABS: Alanine Aminotransferase 33 Units/L (7-52); Albumin 2.4 g/dL (3.5-5.7); Albumin/Globulin Ratio 0.6 (1.1-2.2); Alkaline Phosphatase 38 Units/L (34-104); Aspartate Amino Transferase 13 Units/L (13-39); BUN/Creatinine Ratio 40 (6-26); Bilirubin,Total 0.8 mg/dL (0.3-1.0); Blood Urea Nitrogen 31 mg/dL (8-23); Calcium 8.2 mg/dL (8.6-10.3); Carbon Dioxide 33 mEq/L (23-29); Chloride 99 mEq/L (98-107); Globulin 3.9 g/dL (2.4-3.5); Glucose 271 mg/dL (70-105); Osmolality,Calculated 300 (280-300); Potassium 3.9 mEq/L (3.5-5.1); Sodium 137 mEq/L (136-145); Total Protein 6.3 g/dL (6.4-8.9); eGFR For African Americans > 60 (> 60); eGFR For Non-African Americans > 60 (> 60)
[2017-07-10] MEDS ORDERED: Vancomycin 1,250 MG in D5% in Water 250 ML IVPB SCH (06:00)
[2017-07-10] MEDS: Cefepime HCl 1,000 MG in Water for inj. (sterile) 10 ML IVP SCH ×2 (06:32→19:04)
[2017-07-10] MEDS: *HR* Enoxaparin 80 MG/0.8 ML SYRINGE SQ SCH ×3 (06:33→16:34)
--- NOTE | 2017-07-10 08:10 | Neurology Progress Note ---
Date of Encounter: 07/10/17 Time of Encounter: 08:07 Assessment and Plan (1) Altered mental status Current Visit: Yes Status: Acute Qualifiers: Altered mental status type: unspecified Qualified Code(s): R41.82 - Altered mental status, unspecified (2) Acute cerebral infarction Current Visit: Yes Status: Acute Paucity of movement of the right upper extremity. We have identified that she does have 60-79% stenosis of the left internal carotid artery. She also has a 30% ejection fraction. The MRI scan of her brain did reveal scattered bilateral small infarcts. Believe it is reasonable to suspect that may have been due to a cardioembolic phenomenon. Going forward, management of this situation is difficult. Ultimately she does need to be on anticoagulation however given her current situation she certainly will be at risk for falls. Also there is a question as to not she would be a good candidate for surgical intervention i.e. carotid endarterectomy. (3) Lumbar spinal stenosis Current Visit: Yes Status: Acute MRI scan of the lumbar spine does reveal what appears to be moderate to severe lumbar spinal stenosis at the L4-L5 level. The study however is motion degraded. I cannot identify a large disc herniation however on these sagittal study. He can clearly see that the spinal canal is severely narrowed at the L4- L5 level. This may be the etiology of her acute problem. However given her acute stroke, and other underlying medical issues I am not certain that she will be a good surgical candidate. Management of this case is complex. Ultimately we may have to opt for pain management and may be ECF placement. Consider vascular evaluation for the left carotid artery stenosis, consider spine consultation for severe L4-L5 spinal stenosis. 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 I believe medical stabilization of the stroke is first and foremost, and then pain management. Unfortunately there may not be a good curative option here however. Considering her age, and other risk factors. Qualifiers: Qualified Code(s): M48.061 - Spinal stenosis, lumbar region without neurogenic claudication Subjective Interval history: The chart was reviewed, patient was seen and examined. Patient was sleeping soundly upon my entering the room. She aroused to voice stimuli. She is mildly confused however is very preoccupied with her right leg pain. She maintains weakness in the right upper extremity. However she is a difficult historian. It is difficult to get a feel for exactly whether most of her pain is in the fact right hip with the right leg below the knee. She did have an MRI of the right femur which does reveal what appears to be a lipoma which may be encasing the right sciatic nerve. MRI of the lumbar spine also reveals severe lumbar spinal stenosis which is worse at the L4 L5 level. I can identify a herniated disc at this level as well. The study is motion degraded. Objective - Constitutional Vitals: Temp Pulse Resp BP Pulse Ox 98.2 F 77 15 120/84 94 07/10/17 04:00 07/10/17 04:00 07/10/17 04:00 07/10/17 04:00 07/10/17 04:00 - Neurological Exam Sensorimotor examination: Present: other Motor Examination: Present: other (She does have paucity of movement of the right upper extremity and little to no movement of the right lower extremity. She moves the left upper and left lower extremities freely. No involuntary movements or atrophy are present. She does have positive right lower extremity straight leg raising. She is very intolerant to any tactile stimulation or movement of the right leg.) Sensation intact: Present: pain Mental Status Examination: Present: awake, alert, oriented to person, oriented to place, does not follow commands. Absent: follows commands appropriately ( Follows some commands but not all.), answers questions appropriately Cranial nerve examination: Present: PERRL, EOMI, visual baez intact, sensory to face intact, mastication intact, no facial asymmetry is present Results - Laboratory Findings CBC and BMP: 07/10/17 04:15 07/10/17 04:15 Abnormal lab findings: Abnormal lab results RBC 2.47 M/mcL (3.82-4.97) L 07/10/17 04:15 Hgb 7.2 g/dL (11.5-15.4) L 07/10/17 04:15 Hct 23.1 % (35.3-44.9) L 07/10/17 04:15 MCHC 31.2 g/dL (31.6-35.5) L 07/10/17 04:15 RDW 15.5 % (11.5-14.5) H 07/10/17 04:15 Lymphocytes # 0.5 K/mcL (0.6-4.6) L 07/10/17 04:15 Nucleated RBCs/100 WBC 0.4 /100 WBC (0) H 07/09/17 04:40 PT 16.8 Seconds (9.4-12.1) H 07/10/17 04:15 APTT 56.0 Seconds (26.0-36.0) H 07/06/17 05:59 Carbon Dioxide 33 mEq/L (23-29) H 07/10/17 04:15 BUN 31 mg/dL (8-23) H 07/10/17 04:15 BUN/Creatinine Ratio 40 (6-26) H 07/10/17 04:15 Glucose 271 mg/dL (70-105) H 07/10/17 04:15 POC Glucose 313 (58-89) H 07/09/17 20:32 Hemoglobin A1c 7.8 % (-5.6) H 07/08/17 00:55 Calcium 8.2 mg/dL (8.6-10.3) L 07/10/17 04:15 Serum Total Protein 6.3 g/dL (6.4-8.9) L 07/10/17 04:15 Albumin 2.4 g/dL (3.5-5.7) L 07/10/17 04:15 Globulin 3.9 g/dL (2.4-3.5) H 07/10/17 04:15 Albumin/Globulin Ratio 0.6 (1.1-2.2) L 07/10/17 04:15 Cholesterol 210 mg/dL (< 200) H 07/06/17 05:59 LDL Cholesterol, Calc 145 mg/dL (0-99) H 07/06/17 05:59 HDL Cholesterol 38 mg/dL (40-59) L 07/06/17 05:59 Cholesterol/HDL Ratio 5.5 (0-4.9) H 07/06/17 05:59 Urine Clarity Cloudy (Clear) A 07/08/17 08:10 Ur Specific [place] > 1.030 (1.010-1.025) H 07/08/17 08:10 Urine Protein 100 mg/dL (Neg-Trace) H 07/08/17 08:10 Urine Blood Trace (Negative) H 07/08/17 08:10 Urine Bilirubin Small (Negative) H 07/08/17 08:10 Urine Microscopic RBC 5-15 per hpf (0-3) H 07/08/17 08:10 Urine Microscopic WBC 30-50 per hpf (0-3) H 07/08/17 08:10 Ur Squamous Epith Cells Moderate per lpf (None-Few) H 07/08/17 08:10 Urine Yeast Moderate per hpf (None Seen) H 07/08/17 08:10 Vancomycin Trough 8.6 mcg/mL (10-20) L 07/10/17 04:15 Staphylococcus sp PCR DETECTED (Not Detect) A 07/08/17 00:55 Staph aureus (PCR) DETECTED (Not Detect) A 07/08/17 00:55 mecA-Methicil Res Gene DETECTED (Not Detect) A 07/08/17 00:55 Consult Discharge Plan - Plan Referrals: Barbra Juarez MD [Primary Care Provider] - Prince Wolf MD [Family Provider] -
[2017-07-10] MEDS: Insulin LISPRO 300 UNITS/3 ML VIAL SQ SCH ×5 (09:32→21:50)
[2017-07-10] MEDS: predniSONE 20 MG TABLET PO SCH (09:39)
[2017-07-10] MEDS: 0.9 % Sodium Chloride 1,000 ML IVC SCH (09:40)
[2017-07-10] MEDS: *HR* Amiodarone 200 MG TABLET PO SCH (09:50)
[2017-07-10] MEDS: Isosorbide MONOnitrate (24 HR) 60 MG TAB.ER.24H PO SCH (11:47)
[2017-07-10] MEDS ORDERED: Vancomycin 500 MG in D5% in Water (Mini-Bag+) 100 ML IVPB ONE (13:15)
--- NOTE | 2017-07-10 13:54 | Internal Med Progress Note ---
Date of Encounter: 07/10/17 Time of Encounter: 13:52 - Assessment and plan (1) HCAP (healthcare-associated pneumonia) Current Visit: Yes Status: Acute Assessment and plan: Continue vancomycin day 3 and Cefepime day 2 discontinued Zosyn on day 2 Chest x-ray showed bilateral opacities and bases compatible with possible pneumonia Tylenol for fevers. (2) MRSA bacteremia Current Visit: Yes Status: Acute Assessment and plan: Recurrent Check echocardiogram (patient refused), consider possible endocarditis Continue vancomycin (3) Lipoma Current Visit: Yes Status: Acute Assessment and plan: MRI of the right femur showed a large 21.3 x 9.8 x 7.7 cm fat signal mass. Not exactly sure this is the cause of her issues. No intervention for now per sergery service (4) CAITLYN (acute kidney injury) Current Visit: No Status: Resolved Assessment and plan: Hold Lasix and lisinopril . Improving. mild hydration Based creatinine was 0.57 and increased almost to double 1.02 Heart catheter in May 2017 showed severe 2 vessel disease with an EF of 35 %. . (5) Afib Current Visit: No Status: Chronic Assessment and plan: Continue amiodarone and discontinue digoxin. INR was up to 7.1. Received Bactrim prior to coming to the hospital. There are no obvious signs of bleeding. Was given 5 mg of IV vitamin K. resume Coumadin , continue lovenox until INR>2 Qualifiers: Atrial fibrillation type: paroxysmal Qualified Code(s): I48.0 - Paroxysmal atrial fibrillation (6) Right hip pain Current Visit: Yes Status: Acute Assessment and plan: No complain of generalized pain CT scan of the cervical, thoracic and lumbar areas SHowed: L4-5 mild central and moderate bilateral foraminal stenosis. Impingement on exiting right or left L4 nerve roots is possible. L5-S1 moderate bilateral foraminal narrowing. Equivocal for impingement on exiting right or left L5 nerve roots. Mri of the lumbar spine showed: Multilevel degenerative thecal sac narrowing and neural foraminal stenosis, worst at L4-5 where there is mild compression of the exiting right L4 nerve root MRI of the right femur showed a large 21.3 x 9.8 x 7.7 cm mass. Could repeat percent a lipoma affecting the sciatic nerve Dr. Valdes from neurology recommending medical management that she is a very poor surgical candidate Start fentanyl patch, gabapentin, continue pain management with hydrocodone and Dilaudid as needed (7) Supratherapeutic INR Current Visit: Yes Status: Acute (8) COPD (chronic obstructive pulmonary disease) Current Visit: Yes Status: Chronic Assessment and plan: Stable Qualifiers: COPD type: unspecified COPD Qualified Code(s): J44.9 - Chronic obstructive pulmonary disease, unspecified (9) CHF (congestive heart failure) Current Visit: Yes Status: Chronic Assessment and plan: No signs of hypervolemia. The patient is stable. Continue IV fluids Qualifiers: Congestive heart failure type: systolic Congestive heart failure chronicity : chronic Qualified Code(s): I50.22 - Chronic systolic (congestive) heart failure (10) Stage II pressure ulcer of buttock Current Visit: Yes Status: Acute Assessment and plan: per nursing. consult wound care. Qualifiers: Laterality: left Qualified Code(s): L89.322 - Pressure ulcer of left buttock, stage 2 (11) Lacunar infarct, acute Current Visit: Yes Status: Acute Assessment and plan: MRI of the brain showed:Multiple, small infarcts in the bilateral mcdowell radiata and centrum semiovale are compatible with bilateral acute lacunar infarcts. Continue Coumadin and Lovenox Neurology following Carotid ultrasound showed a left proximal internal carotene artery severe stenosis of 60-79% Check echocardiogram Echocardiogram performed on April showed an ejection fraction of 30% with severe systolic dysfunction and severe diastolic dysfunction - Subjective Interval history: Very agitated and confused, disoriented in time and place, complaining of severe pain everywhere, unable to complete review of systems due to the patient' s confusion - Constitutional Vitals: Temp Pulse Resp BP Pulse Ox 97.9 F 72 18 131/53 98 07/10/17 12:00 07/10/17 12:00 07/10/17 12:00 07/10/17 12:07/10/17 12:00 General appearance: Present: cooperative, A&O X 1, mild distress, pleasant, obese, answers questions appropriately Exam: - Head Head exam: Present: atraumatic, normocephalic - Eye Eye exam: Present: PERRL, conjuntiva pink, sclera anicteric Pupils: Present: PERRL - Neck Neck exam general surgery: Present: supple, trachea midline. Absent: lymphadenopathy - Respiratory Respiratory exam: Present: decreased breath sounds, CTAB. Absent: accessory muscle use, rales, rhonchi, wheezes - Cardiovascular Cardiovascular exam: Present: RRR, +S1, +S2. Absent: diastolic murmur, gallop, rubs, systolic murmur - GI/Abdominal GI/Abdominal exam: Present: distended, normal bowel sounds, soft, no peritoneal signs. Absent: tenderness - Extremities Exam Extremities exam: Present: warm, radial pulses palpable and symmetrical. Absent : calf tenderness, cyanotic, pedal edema - Neurological Exam Neurological exam: Present: CN II-XII intact, no focal deficits. Absent: oriented X3, pronater drift, facial droop, speech deficit - Skin Skin exam: Present: dry, intact Additional comments: Complains of pain everywhere every time she moves her legs and arms Internal Medicine: Result - Labs CBC & Chem 7: 07/10/17 04:15 07/10/17 04:15 Labs: Short CBC 07/10/17 Range/Units 04:15 WBC 7.7 (4.3-11.1) K/mcL Hgb 7.2 L (11.5-15.4) g/dL Hct 23.1 L (35.3-44.9) % Plt Count 248 (140-400) K/mcL Neutrophils # 6.6 (1.6-8.9) K/mcL BMP 07/10/17 04:15 Sodium 137 Potassium 3.9 Chloride 99 Carbon Dioxide 33 H BUN 31 H Creatinine 0.78 Glucose 271 H Calcium 8.2 L Liver Function 07/10/17 Range/Units 04:15 Total Bilirubin 0.8 (0.3-1.0) mg/dL AST 13 (13-39) Units/L ALT 33 (7-52) Units/L Alkaline Phosphatase 38 (34-104) Units/L Albumin 2.4 L (3.5-5.7) g/dL - ABG Interpretation ABG results: PT/INR, D-dimer PT 16.8 Seconds (9.4-12.1) H 07/10/17 04:15 - Impressions Impressions Brain MRI 07/08/17 08:29 IMPRESSION: Multiple, small infarcts in the bilateral mcdowell radiata and centrum semiovale are compatible with bilateral acute lacunar infarcts. Mild background chronic microvascular ischemic disease. D/ / 07/08/2017 13:58:27 Juan Jose Ojeda MD / geoff Interpreting Provider: Juan Jose Ojeda MD Cervical Spine CT 07/09/17 13:37 IMPRESSION: 1. No acute cervical spine abnormality. No gross evidence of epidural abscess, however evaluation would be better with contrast-enhanced MRI of the cervical spine. 2. [id number] multilevel degenerative disc disease throughout the cervical spine. D/ / 07/09/2017 15:55:04 Harlan Reynoso MD / earl Interpreting Provider: Harlan Reynoso MD Thoracic Spine CT 07/09/17 13:37 IMPRESSION: 1. The upper thoracic spine is partially obscured by motion artifact. 2. No evidence of acute osseous abnormality in the thoracic spine. No gross evidence of epidural abscess, however evaluation would be better with contrast-enhanced MRI of the thoracic spine. 3. Left greater than right pleural effusions and adjacent atelectasis. Superimposed infiltrates are not excluded. 4. Interlobular septal thickening in the upper lungs suggesting pulmonary edema. D/ / 07/09/2017 15:50:35 Harlan Reynoso MD / geoff Interpreting Provider: Harlan Reynoso MD Lumbar Spine CT 07/09/17 13:39 IMPRESSION: No abnormal enhancement or fluid collection is identified in the epidural space. No findings suspicious of discitis. Overall severe multilevel spondylosis, associated with grade 1 spondylolisthesis at L5-S1. L4-5 mild central and moderate bilateral foraminal stenosis. Impingement on exiting right or left L4 nerve roots is possible. L5-S1 moderate bilateral foraminal narrowing. Equivocal for impingement on exiting right or left L5 nerve roots. Cholelithiasis. Nonspecific free fluid in the cul-de-sac. D/ / Lew Clinton MD / Lew Clinton MD Interpreting Provider: Lew Clinton MD Lumbar Spine MRI 07/09/17 18:43 IMPRESSION: Significantly motion degraded exam. Multilevel degenerative thecal sac narrowing and neural foraminal stenosis, worst at L4-5 where there is mild compression of the exiting right L4 nerve root. D/ / Theo Jasso MD / Theo Jasso MD Interpreting Provider: Theo Jasso MD Consult Discharge Plan - Plan Referrals: Barbra Juarez MD [Primary Care Provider] - Prince Wolf MD [Family Provider] -
[2017-07-10] MEDS ORDERED: Vancomycin 500 MG in 0.9 % Sodium Chloride Mini Bag 100 ML IVPB ONE (14:00)
[2017-07-10] MEDS: *HR* FentaNYL PATCH 12 MCG PATCH TD SCH (14:54)
[2017-07-10] MEDS: *HR* LORazepam 2 MG/ML VIAL IVP PRN ×2 (14:57→21:34)
[2017-07-10] MEDS ORDERED: *HR* Warfarin 1 MG TABLET PO ONE (18:00)
[2017-07-10] MEDS: Gabapentin 300 MG CAPSULE PO SCH ×2 (18:13→21:47)
[2017-07-11] MEDS: *HR* HYDROmorphone (PF) 1 MG/ML SYRINGE IVP PRN ×4 (00:01→19:51)
[2017-07-11] MEDS: Cefepime HCl 1,000 MG in Water for inj. (sterile) 10 ML IVP SCH ×2 (06:15→18:07)
[2017-07-11] MEDS: *HR* Enoxaparin 80 MG/0.8 ML SYRINGE SQ SCH ×2 (06:16→18:07)
[2017-07-11 06:43] LABS: Hemoglobin 7.7 g/dL (11.5-15.4); Mean Corpuscular HGB Conc 30.8 g/dL (31.6-35.5); Mean Corpuscular Hemoglobin 28.8 pg (28.0-33.3); Mean Corpuscular Volume 93.6 fL (83.0-100.0); Mean Platelet Volume 9.8 fL (9.4-12.4); Platelet Count 277 K/mcL (140-400); Red Blood Count 2.67 M/mcL (3.82-4.97); Red Cell Distribution Width 15.5 % (11.5-14.5)
[2017-07-11 06:48] LABS: INR 1.7; Prothrombin Time 18.1 Seconds (9.4-12.1)
[2017-07-11 07:02] LABS: BUN/Creatinine Ratio 43 (6-26); Blood Urea Nitrogen 33 mg/dL (8-23); Calcium 8.3 mg/dL (8.6-10.3); Carbon Dioxide 31 mEq/L (23-29); Chloride 100 mEq/L (98-107); Glucose 252 mg/dL (70-105); Osmolality,Calculated 302 (280-300); Potassium 3.7 mEq/L (3.5-5.1); Sodium 138 mEq/L (136-145); eGFR For African Americans > 60 (> 60); eGFR For Non-African Americans > 60 (> 60)
[2017-07-11 08:45] LABS: Acinetobacter baumannii by PCR Not Detected (Not Detect); Candida albicans by PCR Not Detected (Not Detect); Candida glabrata by PCR Not Detected (Not Detect); Candida krusei by PCR Not Detected (Not Detect); Candida parapsilosis by PCR Not Detected (Not Detect); Candida tropicalis by PCR Not Detected (Not Detect); Enterococcus by PCR Not Detected (Not Detect); Escherichia coli by PCR Not Detected (Not Detect); Klebsiella oxytoca by PCR Not Detected (Not Detect); Klebsiella pneumoniae by PCR Not Detected (Not Detect); Pseudomonas aeruginosa by PCR Not Detected (Not Detect); Serratia marcescens by PCR Not Detected (Not Detect); Staphylococcus aureus by PCR ***DETECTED*** (Not Detect); Streptococcus agalactiae(B)PCR Not Detected (Not Detect); Streptococcus by PCR Not Detected (Not Detect); Streptococcus pneumoniae PCR Not Detected (Not Detect); Streptococcus pyogenes (A) PCR Not Detected (Not Detect); mecA Methicillin-Resist Gene ***DETECTED*** (Not Detect)
--- NOTE | 2017-07-11 09:35 | Neurology Progress Note ---
Date of Encounter: 07/11/17 Time of Encounter: 09:30 Assessment and Plan (1) Altered mental status Current Visit: Yes Status: Acute Again, multifactorial including, acute infectious process, medication effect, sundowning effect, pt may have mild baseline dementia as well. Agree with anxiolytics until back to cognitive baseline Qualifiers: Altered mental status type: unspecified Qualified Code(s): R41.82 - Altered mental status, unspecified (2) Acute cerebral infarction Current Visit: Yes Status: Acute Clinically improving, regaining more spontaneous movement of the RUE. RLE weakness may be multifactorial some weakness may be from CVA, some from lumbar radiculopathy/lumbar stenosis, some perhaps from the lipoma effacing the sciatic nerve. Ideally she should be anticoagulated due to the a-fib, and now since she is bedridden. Carotid doppler shows bilateral carotid artery stenosis. She is not a good candidate for CEA at this time due to multiple underlying health issues. Ongoing stroke risk factor mgmt is paramount. Will likely have to go to [facility] after discharge. (3) Lumbar spinal stenosis Current Visit: Yes Status: Acute This is likely the major cause of her right leg pain and weakness. Again, however she is not a good surgical candidate due to underlying medical conditions and confusion. Perhaps EMG / spine consultation may be appropriate at some time in the future. Will reevaluate at your request. Qualifiers: Qualified Code(s): M48.061 - Spinal stenosis, lumbar region without neurogenic claudication Subjective Interval history: Chart reviewed, pt. seen and examined. Case discussed [facility] nursing. Pt. still very emotional and agitated. Didn't sleep much last night. She shows more spontaneous movement of the RUE, still crying due to being frustrated about being in the hospital, as well as the right back pain and leg weakness. I suspect some of the agitation may be due to encephalopathy, associated with infection, as well as medication effect and sundowning. Objective - Constitutional Vitals: Temp Pulse Resp BP Pulse Ox 97.8 F 63 16 126/61 98 07/10/17 17:00 07/11/17 06:38 07/11/17 04:54 07/11/17 06:38 07/11/17 06:38 - Neurological Exam Sensorimotor examination: Present: other Motor Examination: Present: other (She now has more spontaneous movement of the right upper extremity and little to no movement of the right lower extremity, mainly due to pain, she can wiggle the toes as well as dorsiflex/plantarflex the right foot. She moves the left upper and left lower extremities freely. No involuntary movements or atrophy are present. She does have positive right lower extremity straight leg raising. She is very intolerant to any tactile stimulation or movement of the right leg.) Sensation intact: Present: pain Mental Status Examination: Present: awake, alert, oriented to person, oriented to place, does not follow commands. Absent: follows commands appropriately ( Follows some commands but not all.), answers questions appropriately Cranial nerve examination: Present: PERRL, EOMI, visual baez intact, sensory to face intact, mastication intact, no facial asymmetry is present Results - Laboratory Findings CBC and BMP: 07/11/17 06:30 07/11/17 06:30 Abnormal lab findings: Abnormal lab results RBC 2.67 M/mcL (3.82-4.97) L 07/11/17 06:30 Hgb 7.7 g/dL (11.5-15.4) L 07/11/17 06:30 Hct 25.0 % (35.3-44.9) L 07/11/17 06:30 MCHC 30.8 g/dL (31.6-35.5) L 07/11/17 06:30 RDW 15.5 % (11.5-14.5) H 07/11/17 06:30 Lymphocytes # 0.5 K/mcL (0.6-4.6) L 07/10/17 04:15 Nucleated RBCs/100 WBC 0.4 /100 WBC (0) H 07/09/17 04:40 PT 18.1 Seconds (9.4-12.1) H 07/11/17 06:30 APTT 56.0 Seconds (26.0-36.0) H 07/06/17 05:59 Carbon Dioxide 31 mEq/L (23-29) H 07/11/17 06:30 BUN 33 mg/dL (8-23) H 07/11/17 06:30 BUN/Creatinine Ratio 43 (6-26) H 07/11/17 06:30 Glucose 252 mg/dL (70-105) H 07/11/17 06:30 POC Glucose 264 (58-89) H 07/11/17 07:41 Hemoglobin A1c 7.8 % (-5.6) H 07/08/17 00:55 Calculated Osmolality 302 (280-300) H 07/11/17 06:30 Calcium 8.3 mg/dL (8.6-10.3) L 07/11/17 06:30 Serum Total Protein 6.3 g/dL (6.4-8.9) L 07/10/17 04:15 Albumin 2.4 g/dL (3.5-5.7) L 07/10/17 04:15 Globulin 3.9 g/dL (2.4-3.5) H 07/10/17 04:15 Albumin/Globulin Ratio 0.6 (1.1-2.2) L 07/10/17 04:15 Cholesterol 210 mg/dL (< 200) H 07/06/17 05:59 LDL Cholesterol, Calc 145 mg/dL (0-99) H 07/06/17 05:59 HDL Cholesterol 38 mg/dL (40-59) L 07/06/17 05:59 Cholesterol/HDL Ratio 5.5 (0-4.9) H 07/06/17 05:59 Urine Clarity Cloudy (Clear) A 07/08/17 08:10 Ur Specific [place] > 1.030 (1.010-1.025) H 07/08/17 08:10 Urine Protein 100 mg/dL (Neg-Trace) H 07/08/17 08:10 Urine Blood Trace (Negative) H 07/08/17 08:10 Urine Bilirubin Small (Negative) H 07/08/17 08:10 Urine Microscopic RBC 5-15 per hpf (0-3) H 07/08/17 08:10 Urine Microscopic WBC 30-50 per hpf (0-3) H 07/08/17 08:10 Ur Squamous Epith Cells Moderate per lpf (None-Few) H 07/08/17 08:10 Urine Yeast Moderate per hpf (None Seen) H 07/08/17 08:10 Vancomycin Trough 8.6 mcg/mL (10-20) L 07/10/17 04:15 Staphylococcus sp PCR DETECTED (Not Detect) A 07/09/17 14:15 Staph aureus (PCR) DETECTED (Not Detect) A 07/09/17 14:15 mecA-Methicil Res Gene DETECTED (Not Detect) A 07/09/17 14:15 Consult Discharge Plan - Plan Referrals: Barbra Juarez MD [Primary Care Provider] - Prince Wolf MD [Family Provider] -
[2017-07-11] MEDS: Silvasorb 44.4 ML TUBE TP SCH ×2 (09:46→10:10)
[2017-07-11] MEDS: Gabapentin 300 MG CAPSULE PO SCH ×3 (09:46→21:27)
[2017-07-11] MEDS: *HR* Amiodarone 200 MG TABLET PO SCH (09:46)
[2017-07-11] MEDS: Insulin LISPRO 300 UNITS/3 ML VIAL SQ SCH ×4 (09:46→21:26)
[2017-07-11] MEDS ORDERED: Vancomycin 1,250 MG in D5% in Water 250 ML IVPB SCH (10:00)
[2017-07-11] MEDS ORDERED: Vancomycin 1,500 MG in D5% in Water 250 ML IVPB SCH (10:00)
--- NOTE | 2017-07-11 11:43 | Infectious Disease Consult ---
Date of Encounter: 07/11/17 Time of Encounter: 11:41 Assessment and Plan (1) MRSA bacteremia Status: Acute Assessment and plan: Source not clear. Positive cultures on 07/08/2017 that grew MRSA 2 out of 2 sets 07/09/2017 grew MRSA 1 out of 2 sets Moderate. She only has one major [place] criteria. Patient has no hardware in her body and no signs of complicated MRSA bacteremia. Patient has had multiple CT of the cervical, thoracic, lumbar spine and also had a CT and MRI of the hips which showed no joint effusion or signs of seeding. Patient is on vancomycin, creatinine clearance around 45. Vancomycin trough has been subtherapeutic at 9.8. Goal vancomycin trough around 15. Discussed with pharmacy staff. Repeat blood cultures 2 now. Patient will need a GILBERTO. Family is okay with the GILBERTO. I do believe the patient sometimes is not decisional. Discussed with the social worker psychiatric who is evaluating the patient and trying to get a DPOA. Duration of treatment depends on the clinical picture and on the GILBERTO findings. Monitor labs and for drug toxicity. Discussed with the hospitalist team. (2) Lacunar infarct, acute Status: Acute (3) Diabetes mellitus type 2 in obese Status: Chronic (4) Supratherapeutic INR Status: Acute (5) Acute cerebral infarction Status: Acute (6) Chronic pain syndrome Status: Acute Assessment and plan: Patient has had multiple MRIs and CT scans of the cervical, lumbar, thoracic spine and hips which revealed degenerative Arthritis with no acute infectious process (7) Arthritis Status: Acute Assessment and plan: No signs of septic arthritis. Infectious Disease HPI - Data of Consult Patient: new to practice Consult date: 07/11/17 Requesting Physician: Subhash Forman Primary Care Provider: Barbra Juarez MD Family Provider: Prince Hernandez - Consult Narrative Reason for consult: MRSA bacteremia History of present illness: Ms. New is a 77 year old female Patient is a 77-year-old woman who was admitted to [facility] on 07/05/2017 with right hip pain, we are consulted on 07/11/2017 for MRSA bacteremia. Briefly, patient is 77-year-old woman with past medical history mentioned below including arthritis, CHF, COPD who apparently presented to the emergency department with chief complaint of severe pain and swelling in the right hip that was radiating down to her leg that began a few days prior to admission. Most of the information was taken from medical records as the patient is not a great historian. Records as there was no documented falls, trauma or strain. Patient was admitted to [facility] for further evaluation. Since admission, patient initially was afebrile but on 07/07/2017 she spiked a fever of 102.3 Fahrenheit. Patient continues to be febrile until 07/09/2017. Patient did not have any tachycardia. Patient did not have any leukocytosis. WBC was between 7-8000 with normal differential and no bands. His revealed some elevated glucose and mildly elevated AST and ALT and decreased protein and albumin. Patient did have an INR of 6.[address] of the head revealed no acute does use abnormality and showed moderate bilateral hip, bilateral sacroiliac and pubic symphysis degenerative changes. On 07/07/2017 an MRI was done and it revealed: 1. Large 21.3 x 9.8 x 7.7 cm fat signal mass in the posterior compartment of the right thigh with thin mildly enhancing internal septations. No nodularity identified. 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 Significant mass effect on without definite involvement of the hamstring musculature. 2. Moderate volume of fluid in the right greater trochanteric bursa. 3. Small volume of free fluid in the pelvis. MRI of the brain in 07/08/2017 revealed multiple small infarcts in the bilateral mcdowell radiata and centrum semiovale are compatible with bilateral acute lacunar infarct. CT of the thoracic cervical and lumbar spine shows no acute osseous abnormality or epidural abscess. A lumbar MRI performed on 07/09/2017 revealed Multilevel degenerative thecal sac narrowing and neural foraminal stenosis, worst at L4-5 where there is mild compression of the exiting right L4 nerve root. Blood cultures were obtained on 07/08/2017 that grew MRSA 2 out of 2 sets. Repeat culture done on 07/09/2017 grew gram-positive cocci 1 out of 2 sets with PCR picking up Staphylococcus aureus that has MecA gene. CC: Subhash Thao-Claire Past Med Surg Social Fam HX - Past Medical History Medical history: arthritis, atrial fibrillation (On warfarin), CHF, COPD, coronary artery disease (NSTEMI 05/2018; LHC 05/2018 notes 100% LMCA/LAD w/ collaterals), GERD, hyperlipidemia, hypertension, myocardial infarction Psychiatric history: no psych history - Past Surgical History Surgical History: other (Bialteral tubal ligation and removal of fatty tumor on right shoulder; left heart cath 2018) - Social History Smoking Status: Never smoker Smokeless Tobacco Status: No Alcohol use: none Drug use: none - Family History Mother Age: 25 Living Status: Age at : 28 Cause of : CA Hx Family Cardiac Disorders: Yes Hx Family Respiratory Disorders: No Hx Family Cancer: No Hx Family GI Disorders: No Hx Family Genitourinary Disorders: No Hx Family Endocrine Disorder: No Hx Family Musculoskeletal Disorders: No Hx Family Neuromuscular Disorders: No Hx Family Neurologic Disorders: No Hx Family HEENT Disorders: No Father Race: Family Member Ethnicity: Non- Living Status: Age at : 58 Cause of : CA Hx Family Cardiac Disorders: Yes (CA) Brother Race: Family Member Ethnicity: Non- Living Status: Age at : 76 Cause of : Lung cancer Hx Family Cancer: Yes (Lung) Infectious Disease-CN:Meds Albuterol Sulfate [Albuterol Inhaler] 2 puff IH Q6H PRN 05/27/17 [History] Budesonide/Formoterol 80/4.5 [Symbicort 80/4.5] 2 puff IH BID 05/27/17 [History ] Amiodarone [Cordarone] 200 mg PO DAILY tablet 06/06/17 [Rx] Aspirin Enteric Coated [Aspirin EC] 81 mg PO Q48H #0 tablet.dr 06/20/17 [Rx] Digoxin [Lanoxin] 0.25 mg PO DAILY #30 tablet 06/20/17 [Rx] Furosemide [Lasix] 20 mg PO DAILY #0 tablet 06/20/17 [Rx] Isosorbide MONOnitrate (24 HR) [Imdur] 60 mg PO DAILY #30 tab.er.24h 06/20/17 [ Rx] Lisinopril [Zestril] 5 mg PO DAILY #30 tablet 06/20/17 [Rx] Ranitidine HCl [Heartburn Relief] 150 mg PO BID PRN #0 06/20/17 [Rx] Warfarin [Coumadin] 1.5 mg PO QPM 07/06/17 [History] 3 Allergy/AdvReac Type Severity Reaction Status Date / Time No Known Allergies Allergy Verified 07/05/17 13:12 Review of systems: 10 point review of systems done, negative other for what mentioned in history of present illness. Exam - Constitutional Vitals: Temp Pulse Resp BP Pulse Ox 97.8 F 63 16 126/61 98 07/10/17 17:00 07/11/17 06:38 07/11/17 04:54 07/11/17 06:38 07/11/17 06:38 General appearance: no acute distress, no febrile Exam: Patient has been having crying spells. She is crying because she tells me she wants coffee with cream and sugar. - Head Head exam: Present: atraumatic, normocephalic - Eye Eye exam: Present: EOMI, PERRL, sclera anicteric Additional comments: No conjunctival hemorrhages noted. - ENT ENT exam: Present: mucous membranes dry Additional comments: No oral lesions - Neck Neck exam: Present: full ROM. Absent: tenderness - Respiratory Respiratory exam: Present: CTAB. Absent: rhonchi, wheezes - Cardiovascular Cardiovascular exam: Present: RRR, +S1, +S2 Additional comments: No murmur - GI/Abdominal GI/Abdominal exam: Present: normal bowel sounds, soft. Absent: tenderness - Extremities Exam Extremities exam: Present: full ROM Additional comments: Patient has some tenderness over her knees but there is no erythema no fluctuance no effusion. No swelling no effusion no erythema over her ankles either. - Back Exam Back exam: Present: normal inspection. Absent: vertebral tenderness - Neurological Exam Neurological exam: Present: alert, oriented X3. Absent: speech deficit Additional comments: She is alert and oriented 4. She knew where she lives and how many docs she has and the family members in the room. - Psychiatric Psychiatric exam: Present: anxious, depressed - Skin Skin exam: Present: normal color. Absent: rash Additional comments: No endocarditis stigmata Infectious Disease CN: Results - Labs CBC & Chem 7: 07/11/17 06:30 07/11/17 06:30 Cultures: Cultures 07/08/17 00:55 Blood Culture - Final Peripheral Venipuncture Methicillin Resistant S.aureus 07/09/17 14:15 Blood Culture - Preliminary Peripheral Venipuncture Gram Positive Cocci 07/09/17 14:15 Blood Culture - Preliminary Peripheral Venipuncture No growth. 07/08/17 00:55 Blood Culture - Final Peripheral Venipuncture Methicillin Resistant S.aureus 07/08/17 08:10 Legionella Antigen - Final Urine,Clean Catch 07/08/17 08:10 Streptococcus pneumoniae Antigen (M - Final Urine,Clean Catch Serology: Serology 07/09/17 07/08/17 07/08/17 Range/Units 14:15 08:10 00:55 Urine Color Dark Yellow (Yellow) Urine Clarity Cloudy A (Clear) Urine pH 6.0 (5.0-8.0) pH Units Ur Specific [place] > 1.030 H (1.010-1.025) Urine Protein 100 H (Neg-Trace) mg/dL Urine Glucose (UA) Normal (Normal) mg/dL Urine Ketones Negative (Negative) mg/dL Urine Blood Trace H (Negative) Urine Nitrite Negative (Negative) Urine Bilirubin Small H (Negative) Urine Urobilinogen Normal (Normal) mg/dL Ur Leukocyte Esterase Negative (Negative) Urine Microscopic RBC 5-15 H (0-3) per hpf Urine Microscopic WBC 30-50 H (0-3) per hpf Ur Squamous Epith Cells Moderate H (None-Few) per lpf Urine Bacteria Few (None-Few) per hpf Hyaline Casts Few (None-Few) per lpf Urine Yeast Moderate H (None Seen) per hpf Ur Culture Indicated? NO (NO) A. baumannii (PCR) Not Detected Not Detected (Not Detect) Adelina albicans (PCR) Not Detected Not Detected (Not Detect) C. glabrata (PCR) Not Detected Not Detected (Not Detect) C. krusei (PCR) Not Detected Not Detected (Not Detect) C. parapsilosis (PCR) Not Detected Not Detected (Not Detect) C. tropicalis (PCR) Not Detected Not Detected (Not Detect) Enterobacteriac sp PCR Not Detected Not Detected (Not Detect) E. cloacae complex PCR Not Detected Not Detected (Not Detect) Enterococcus sp PCR Not Detected Not Detected (Not Detect) E. coli (PCR) Not Detected Not Detected (Not Detect) H. influenzae (PCR) Not Detected Not Detected (Not Detect) Klebsiella oxytoca PCR Not Detected Not Detected (Not Detect) Klebsiella pneumoniae Not Detected Not Detected (Not Detect) List. monocytogenes PCR Not Detected Not Detected (Not Detect) N. meningitidis (PCR) Not Detected Not Detected (Not Detect) Proteus species (PCR) Not Detected Not Detected (Not Detect) Serratia marcescens PCR Not Detected Not Detected (Not Detect) Staphylococcus sp PCR DETECTED A DETECTED A (Not Detect) Staph aureus (PCR) DETECTED A DETECTED A (Not Detect) mecA-Methicil Res Gene DETECTED A DETECTED A (Not Detect) Streptococcus sp PCR Not Detected Not Detected (Not Detect) Group A Strep DNA Not Detected Not Detected (Not Detect) Group B Strep (PCR) Not Detected Not Detected (Not Detect) Strep pneumoniae (PCR) Not Detected Not Detected (Not Detect) P. aeruginosa (PCR) Not Detected Not Detected (Not Detect) Alexa/B-Vanco Res Genes N/A Not Detected (Not Detect) KPC (blaKPC) Detect PCR N/A Not Detected (Not Detect) Consult Discharge Plan - Plan Referrals: Barbra Juarez MD [Primary Care Provider] - Prince Wolf MD [Family Provider] -
--- NOTE | 2017-07-11 15:13 | Internal Med Progress Note ---
Date of Encounter: 07/11/17 Time of Encounter: 15:11 - Assessment and plan (1) MRSA bacteremia Current Visit: Yes Status: Acute Assessment and plan: Recurrent Report of echocardiogram is pending (patient refused the first time), consider possible endocarditis ID consulted GILBERTO recommended Continue vancomycin (2) HCAP (healthcare-associated pneumonia) Current Visit: Yes Status: Acute Assessment and plan: Continue vancomycin day 4 and Cefepime day 3 discontinued Zosyn on day 2 Chest x-ray showed bilateral opacities and bases compatible with possible pneumonia Tylenol for fevers. (3) Lipoma Current Visit: Yes Status: Acute Assessment and plan: MRI of the right femur showed a large 21.3 x 9.8 x 7.7 cm fat signal mass. Not exactly sure this is the cause of her issues. No intervention for now per sergery service (4) CAITLYN (acute kidney injury) Current Visit: No Status: Resolved Assessment and plan: Hold Lasix and lisinopril . Improving. mild hydration Based creatinine was 0.57 and increased almost to double 1.02 Heart catheter in May 2017 showed severe 2 vessel disease with an EF of 35 %. . (5) Afib Current Visit: No Status: Chronic Assessment and plan: Continue amiodarone and discontinue digoxin. INR was up to 7.1. Received Bactrim prior to coming to the hospital. There are no obvious signs of bleeding. Was given 5 mg of IV vitamin K. resume Coumadin , continue lovenox until INR>2 Qualifiers: Atrial fibrillation type: paroxysmal Qualified Code(s): I48.0 - Paroxysmal atrial fibrillation (6) Right hip pain Current Visit: Yes Status: Acute Assessment and plan: No complain of generalized pain CT scan of the cervical, thoracic and lumbar areas SHowed: L4-5 mild central and moderate bilateral foraminal stenosis. Impingement on exiting right or left L4 nerve roots is possible. L5-S1 moderate bilateral foraminal narrowing. Equivocal for impingement on exiting right or left L5 nerve roots. Mri of the lumbar spine showed: Multilevel degenerative thecal sac narrowing and neural foraminal stenosis, worst at L4-5 where there is mild compression of the exiting right L4 nerve root MRI of the right femur showed a large 21.3 x 9.8 x 7.7 cm mass. Could repeat percent a lipoma affecting the sciatic nerve Dr. Valdes from neurology recommending medical management that she is a very poor surgical candidate Start fentanyl patch, gabapentin, continue pain management with hydrocodone and Dilaudid as needed (7) Supratherapeutic INR Current Visit: Yes Status: Acute (8) COPD (chronic obstructive pulmonary disease) Current Visit: Yes Status: Chronic Assessment and plan: Stable Qualifiers: COPD type: unspecified COPD Qualified Code(s): J44.9 - Chronic obstructive pulmonary disease, unspecified (9) CHF (congestive heart failure) Current Visit: Yes Status: Chronic Assessment and plan: No signs of hypervolemia. The patient is stable. Continue IV fluids Qualifiers: Congestive heart failure type: systolic Congestive heart failure chronicity : chronic Qualified Code(s): I50.22 - Chronic systolic (congestive) heart failure (10) Stage II pressure ulcer of buttock Current Visit: Yes Status: Acute Assessment and plan: per nursing. consult wound care. Qualifiers: Laterality: left Qualified Code(s): L89.322 - Pressure ulcer of left buttock, stage 2 (11) Lacunar infarct, acute Current Visit: Yes Status: Acute Assessment and plan: MRI of the brain showed:Multiple, small infarcts in the bilateral mcdowell radiata and centrum semiovale are compatible with bilateral acute lacunar infarcts. 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 Less agitated and confused, disoriented in time and place, complaining of severe pain everywhere, unable to complete review of systems due to the patient' s confusion - Constitutional Vitals: Temp Pulse Resp BP Pulse Ox 97.8 F 70 20 137/68 95 07/10/17 17:00 07/11/17 11:00 07/11/17 11:00 07/11/17 11:00 07/11/17 11:00 General appearance: Present: cooperative, A&O X 1, mild distress, pleasant, obese, answers questions appropriately Exam: - Head Head exam: Present: atraumatic, normocephalic - Eye Eye exam: Present: PERRL, conjuntiva pink, sclera anicteric Pupils: Present: PERRL - Neck Neck exam general surgery: Present: supple, trachea midline. Absent: lymphadenopathy - Respiratory Respiratory exam: Present: decreased breath sounds, CTAB. Absent: accessory muscle use, rales, rhonchi, wheezes - Cardiovascular Cardiovascular exam: Present: RRR, +S1, +S2. Absent: diastolic murmur, gallop, rubs, systolic murmur - GI/Abdominal GI/Abdominal exam: Present: distended, normal bowel sounds, soft, no peritoneal signs. Absent: tenderness - Extremities Exam Extremities exam: Present: warm, radial pulses palpable and symmetrical. Absent : calf tenderness, cyanotic, pedal edema - Neurological Exam Neurological exam: Present: CN II-XII intact, no focal deficits. Absent: oriented X3, pronater drift, facial droop, speech deficit - Skin Skin exam: Present: dry, intact Additional comments: Complains of pain everywhere every time she moves her legs and arms Internal Medicine: Result - Labs CBC & Chem 7: 07/11/17 06:30 07/11/17 06:30 Labs: Short CBC 07/11/17 Range/Units 06:30 WBC 7.9 (4.3-11.1) K/mcL Hgb 7.7 L (11.5-15.4) g/dL Hct 25.0 L (35.3-44.9) % Plt Count 277 (140-400) K/mcL BMP 07/11/17 06:30 Sodium 138 Potassium 3.7 Chloride 100 Carbon Dioxide 31 H BUN 33 H Creatinine 0.77 Glucose 252 H Calcium 8.3 L - ABG Interpretation ABG results: PT/INR, D-dimer PT 18.1 Seconds (9.4-12.1) H 07/11/17 06:30 - Impressions Impressions Echocardiogram 07/10/17 16:52 Impressions: LVEF 35%. Mildly dilated left ventricle. Indeterminate diastolic function. Global left ventricular systolic dysfunction. Atypical septal motion of unclear etiology. Normal right ventricular structure and function. Mild-moderate mitral regurgitation. Mild tricuspid regurgitation. No pulmonary hypertension. Pleural effusion noted. No evidence of endocarditis on this study. Consider repeat TTE or GILBERTO as clinically indicated. Left Ventricular Wall Motion: Rest Echo Findings The apex, apical inferior, mid inferior, basal inferior, apical anterior, mid anterior, basal anterior, apical septal, mid inferior septal, basal inferior septal, apical lateral, mid anterior lateral, basal anterior lateral, mid anterior septal, mid inferior lateral, basal anterior septal and basal inferior lateral savage were hypokinetic. Findings: Study Quality * Technically adequate exam. ECG Findings * Difficult to determine rhythm. Left Ventricle * LVEF 35%. * Mildly dilated left ventricle. * Indeterminate diastolic function. * Global left ventricular systolic dysfunction. * Atypical septal motion of unclear etiology. Right Ventricle * Normal right ventricular structure and function. Left Atrium * Moderately dilated left atrium. Right Atrium * Mildly dilated right atrium. Interatrial Septum * Interatrial septum not well evaluated. Aortic Valve * Trileaflet aortic valve. * Mildly sclerotic aortic valve leaflets. * No aortic regurgitation. * No aortic stenosis. Mitral Valve * Mildly thickened mitral valve leaflets. * Mild-moderate mitral regurgitation. * No mitral stenosis. Tricuspid Valve * Normal tricuspid valve structure. * Mild tricuspid regurgitation. * No pulmonary hypertension. Pulmonic Valve * Normal pulmonic valve structure and function. * Trace pulmonic regurgitation. Aorta * Normally sized aortic root. Pericardium * The pericardium appears normal. IVC * Normal IVC dimensions and inspiratory collapse. Pleural Effusion * Pleural effusion noted. Pulmonary Artery * Normal visualized portions of the main pulmonary artery. Consult Discharge Plan - Plan Referrals: Barbra Juarez MD [Primary Care Provider] - Prince Wolf MD [Family Provider] -
[2017-07-11] MEDS: *HR* LORazepam 2 MG/ML VIAL IVP SCH ×3 (16:01→19:51)
[2017-07-11] MEDS ORDERED: *HR* Warfarin 1 MG TABLET PO ONE (18:00)
[2017-07-11] MEDS: 0.9 % Sodium Chloride 1,000 ML IVC SCH ×2 (18:05)
[2017-07-11] MEDS: Aspirin Enteric Coated 81 MG Tablet PO SCH (21:27)
[2017-07-11 23:35] LABS: Enterococcus by PCR Not Detected (Not Detect); Streptococcus agalactiae(B)PCR Not Detected (Not Detect); Streptococcus by PCR Not Detected (Not Detect); Streptococcus pneumoniae PCR Not Detected (Not Detect); blaKPC Carbapenem-Resist Gene Not Detected (Not Detect); vanA/B Vancomycin-Resist Genes Not Detected (Not Detect)
[2017-07-11 23:36] LABS: Acinetobacter baumannii by PCR Not Detected (Not Detect); Candida albicans by PCR Not Detected (Not Detect); Candida glabrata by PCR Not Detected (Not Detect); Candida krusei by PCR Not Detected (Not Detect); Candida parapsilosis by PCR Not Detected (Not Detect); Candida tropicalis by PCR Not Detected (Not Detect); Escherichia coli by PCR Not Detected (Not Detect); Klebsiella oxytoca by PCR Not Detected (Not Detect); Klebsiella pneumoniae by PCR Not Detected (Not Detect); Pseudomonas aeruginosa by PCR Not Detected (Not Detect); Serratia marcescens by PCR Not Detected (Not Detect); Staphylococcus aureus by PCR ***DETECTED*** (Not Detect); Streptococcus pyogenes (A) PCR Not Detected (Not Detect); mecA Methicillin-Resist Gene ***DETECTED*** (Not Detect)
[2017-07-12] MEDS: *HR* HYDROmorphone (PF) 1 MG/ML SYRINGE IVP PRN ×4 (00:16→23:07)
[2017-07-12] MEDS: *HR* LORazepam 2 MG/ML VIAL IVP SCH ×6 (00:17→20:00)
[2017-07-12] MEDS: Cefepime HCl 1,000 MG in Water for inj. (sterile) 10 ML IVP SCH ×2 (06:56→17:11)
[2017-07-12] MEDS: 0.9 % Sodium Chloride 1,000 ML IVC SCH ×2 (06:58→23:00)
[2017-07-12] MEDS: *HR* Enoxaparin 80 MG/0.8 ML SYRINGE SQ SCH (06:58)
[2017-07-12] MEDS: Insulin LISPRO 300 UNITS/3 ML VIAL SQ SCH ×4 (09:07→22:00)
[2017-07-12] MEDS: Gabapentin 300 MG CAPSULE PO SCH ×3 (09:08→22:28)
[2017-07-12] MEDS: *HR* Amiodarone 200 MG TABLET PO SCH (09:08)
[2017-07-12 09:36] LABS: INR 2.3
--- NOTE | 2017-07-12 14:50 | Internal Med Progress Note ---
Date of Encounter: 07/12/17 Time of Encounter: 14:48 - Assessment and plan (1) MRSA bacteremia Current Visit: Yes Status: Acute Assessment and plan: Recurrent Report of echocardiogram is pending (patient refused the first time), consider possible endocarditis ID consulted Transthoracic echocardiogram shows an ejection fraction of 30% no vegetations GILBERTO recommended Continue vancomycin (2) HCAP (healthcare-associated pneumonia) Current Visit: Yes Status: Acute Assessment and plan: Continue vancomycin day 5 and Cefepime day 4 discontinued Zosyn on day 2 Chest x-ray showed bilateral opacities and bases compatible with possible pneumonia Tylenol for fever. (3) Lipoma Current Visit: Yes Status: Acute Assessment and plan: MRI of the right femur showed a large 21.3 x 9.8 x 7.7 cm fat signal mass. Not exactly sure this is the cause of her issues. No intervention for now per sergery service (4) Afib Current Visit: No Status: Chronic Assessment and plan: Continue amiodarone and discontinue digoxin. INR was up to 7.1. Received Bactrim prior to coming to the hospital. There are no obvious signs of bleeding. Was given 5 mg of IV vitamin K. resumed Coumadin , discontinue lovenox as INR>2 now Qualifiers: Atrial fibrillation type: paroxysmal Qualified Code(s): I48.0 - Paroxysmal atrial fibrillation (5) Right hip pain Current Visit: Yes Status: Acute Assessment and plan: CT scan of the cervical, thoracic and lumbar areas SHowed: L4-5 mild central and moderate bilateral foraminal stenosis. Impingement on exiting right or left L4 nerve roots is possible. L5-S1 moderate bilateral foraminal narrowing. Equivocal for impingement on exiting right or left L5 nerve roots. Mri of the lumbar spine showed: Multilevel degenerative thecal sac narrowing and neural foraminal stenosis, worst at L4-5 where there is mild compression of the exiting right L4 nerve root MRI of the right femur showed a large 21.3 x 9.8 x 7.7 cm mass. Could repeat percent a lipoma affecting the sciatic nerve Dr. Valdes from neurology recommending medical management that she is a very poor surgical candidate Start fentanyl patch, gabapentin, continue pain management with hydrocodone and Dilaudid as needed (6) Supratherapeutic INR Current Visit: Yes Status: Acute (7) COPD (chronic obstructive pulmonary disease) Current Visit: Yes Status: Chronic Assessment and plan: Stable Qualifiers: COPD type: unspecified COPD Qualified Code(s): J44.9 - Chronic obstructive pulmonary disease, unspecified (8) CHF (congestive heart failure) Current Visit: Yes Status: Chronic Assessment and plan: No signs of hypervolemia. The patient is stable. Continue IV fluids Qualifiers: Congestive heart failure type: systolic Congestive heart failure chronicity : chronic Qualified Code(s): I50.22 - Chronic systolic (congestive) heart failure (9) Stage II pressure ulcer of buttock Current Visit: Yes Status: Acute Assessment and plan: per nursing. consult wound care. Qualifiers: Laterality: left Qualified Code(s): L89.322 - Pressure ulcer of left buttock, stage 2 (10) Lacunar infarct, acute Current Visit: Yes Status: Acute Assessment and plan: MRI of the brain showed:Multiple, small infarcts in the bilateral mcdowell radiata and centrum semiovale are compatible with bilateral acute lacunar infarcts. 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 Less agitated but still confused, disoriented in time and place, complaining of severe pain everywhere, unable to complete review of systems due to the patient' s confusion - Constitutional Vitals: Temp Pulse Resp BP Pulse Ox 98.2 F 74 17 129/56 90 07/12/17 06:42 07/12/17 06:42 07/12/17 06:42 07/12/17 06:42 07/12/17 06:42 General appearance: Present: cooperative, A&O X 1, mild distress, pleasant, obese, answers questions appropriately Exam: - Head Head exam: Present: atraumatic, normocephalic - Eye Eye exam: Present: PERRL, conjuntiva pink, sclera anicteric Pupils: Present: PERRL - Neck Neck exam general surgery: Present: supple, trachea midline. Absent: lymphadenopathy - Respiratory Respiratory exam: Present: decreased breath sounds, CTAB. Absent: accessory muscle use, rales, rhonchi, wheezes - Cardiovascular Cardiovascular exam: Present: RRR, +S1, +S2. Absent: diastolic murmur, gallop, rubs, systolic murmur - GI/Abdominal GI/Abdominal exam: Present: distended, normal bowel sounds, soft, no peritoneal signs. Absent: tenderness - Extremities Exam Extremities exam: Present: warm, radial pulses palpable and symmetrical. Absent : calf tenderness, cyanotic, pedal edema - Neurological Exam Neurological exam: Present: CN II-XII intact, no focal deficits. Absent: oriented X3, pronater drift, facial droop, speech deficit - Skin Skin exam: Present: dry, intact Additional comments: Complains of pain everywhere every time she moves her legs and arms Internal Medicine: Result - Labs CBC & Chem 7: 07/11/17 06:30 07/11/17 06:30 - ABG Interpretation ABG results: PT/INR, D-dimer PT 25.0 Seconds (9.4-12.1) H 07/12/17 09:22 Consult Discharge Plan - Plan Referrals: Barbra Juarez MD [Primary Care Provider] - Prince Wolf MD [Family Provider] -
[2017-07-12] MEDS: Vancomycin 1,250 MG in D5% in Water 250 ML IVPB SCH (15:20)
[2017-07-12] MEDS ORDERED: *HR* Warfarin 1 MG TABLET PO ONE (18:00)
[2017-07-12] MEDS: Silvasorb 44.4 ML TUBE TP SCH (22:00)
[2017-07-13] MEDS: *HR* LORazepam 2 MG/ML VIAL IVP SCH ×6 (04:00→20:00)
[2017-07-13] MEDS: Cefepime HCl 1,000 MG in Water for inj. (sterile) 10 ML IVP SCH ×2 (04:57→18:46)
[2017-07-13] MEDS: *HR* HYDROmorphone (PF) 1 MG/ML SYRINGE IVP PRN ×5 (04:59→22:41)
[2017-07-13] MEDS: Gabapentin 300 MG CAPSULE PO SCH ×3 (09:15→22:43)
[2017-07-13] MEDS: *HR* Amiodarone 200 MG TABLET PO SCH (09:15)
[2017-07-13] MEDS: Insulin LISPRO 300 UNITS/3 ML VIAL SQ SCH ×4 (09:17→22:41)
[2017-07-13] MEDS: 0.9 % Sodium Chloride 1,000 ML IVC SCH (12:14)
[2017-07-13] MEDS: *HR* FentaNYL PATCH 12 MCG PATCH TD SCH (12:14)
[2017-07-13] MEDS: Vancomycin 1,250 MG in D5% in Water 250 ML IVPB SCH (12:17)
[2017-07-13 12:59] LABS: INR 2.5
--- NOTE | 2017-07-13 14:12 | Internal Med Progress Note ---
Date of Encounter: 07/13/17 Time of Encounter: 14:10 - Assessment and plan (1) MRSA bacteremia Current Visit: Yes Status: Acute Assessment and plan: Recurrent Report of echocardiogram is pending (patient refused the first time), consider possible endocarditis ID consulted Transthoracic echocardiogram shows an ejection fraction of 30% no vegetations GILBERTO recommended Continue vancomycin (2) HCAP (healthcare-associated pneumonia) Current Visit: Yes Status: Acute Assessment and plan: Continue vancomycin day 6 and Cefepime day 5 discontinued Zosyn on day 2 Chest x-ray showed bilateral opacities and bases compatible with possible pneumonia Tylenol for fever. (3) Lipoma Current Visit: Yes Status: Acute Assessment and plan: MRI of the right femur showed a large 21.3 x 9.8 x 7.7 cm fat signal mass. Not exactly sure this is the cause of her issues. No intervention for now per sergery service (4) Afib Current Visit: No Status: Chronic Assessment and plan: Continue amiodarone and discontinue digoxin. INR was up to 7.1. Received Bactrim prior to coming to the hospital. There are no obvious signs of bleeding. Was given 5 mg of IV vitamin K. resumed Coumadin , discontinued lovenox as INR>2 now Qualifiers: Atrial fibrillation type: paroxysmal Qualified Code(s): I48.0 - Paroxysmal atrial fibrillation (5) Right hip pain Current Visit: Yes Status: Acute Assessment and plan: CT scan of the cervical, thoracic and lumbar areas SHowed: L4-5 mild central and moderate bilateral foraminal stenosis. Impingement on exiting right or left L4 nerve roots is possible. L5-S1 moderate bilateral foraminal narrowing. Equivocal for impingement on exiting right or left L5 nerve roots. Mri of the lumbar spine showed: Multilevel degenerative thecal sac narrowing and neural foraminal stenosis, worst at L4-5 where there is mild compression of the exiting right L4 nerve root MRI of the right femur showed a large 21.3 x 9.8 x 7.7 cm mass. Could repeat percent a lipoma affecting the sciatic nerve Dr. Valdes from neurology recommending medical management that she is a very poor surgical candidate Start fentanyl patch, gabapentin, continue pain management with hydrocodone and Dilaudid as needed (6) Supratherapeutic INR Current Visit: Yes Status: Acute (7) COPD (chronic obstructive pulmonary disease) Current Visit: Yes Status: Chronic Assessment and plan: Stable Qualifiers: COPD type: unspecified COPD Qualified Code(s): J44.9 - Chronic obstructive pulmonary disease, unspecified (8) CHF (congestive heart failure) Current Visit: Yes Status: Chronic Assessment and plan: No signs of hypervolemia. The patient is stable. Continue IV fluids Qualifiers: Congestive heart failure type: systolic Congestive heart failure chronicity : chronic Qualified Code(s): I50.22 - Chronic systolic (congestive) heart failure (9) Stage II pressure ulcer of buttock Current Visit: Yes Status: Acute Assessment and plan: per nursing. consult wound care. Qualifiers: Laterality: left Qualified Code(s): L89.322 - Pressure ulcer of left buttock, stage 2 (10) Lacunar infarct, acute Current Visit: Yes Status: Acute Assessment and plan: MRI of the brain showed:Multiple, small infarcts in the bilateral mcdowell radiata and centrum semiovale are compatible with bilateral acute lacunar infarcts. 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% Echocardiogram performed on April showed an ejection fraction of 30% with severe systolic dysfunction and severe diastolic dysfunction Medical still showing ejection fraction of 30%, no vegetations - Subjective Interval history: Sleeping, agitated at times, still confused, disoriented in time and place, complaining of severe pain everywhere, unable to complete review of systems due to the patient's confusion - Constitutional Vitals: Temp Pulse Resp BP Pulse Ox 97.9 F 78 16 142/93 96 07/13/17 06:42 07/13/17 06:42 07/13/17 06:42 07/13/17 06:42 07/13/17 06:42 General appearance: Present: cooperative, A&O X 1, mild distress, pleasant, obese, answers questions appropriately Exam: - Head Head exam: Present: atraumatic, normocephalic - Eye Eye exam: Present: PERRL, conjuntiva pink, sclera anicteric Pupils: Present: PERRL - Neck Neck exam general surgery: Present: supple, trachea midline. Absent: lymphadenopathy - Respiratory Respiratory exam: Present: decreased breath sounds, CTAB. Absent: accessory muscle use, rales, rhonchi, wheezes - Cardiovascular Cardiovascular exam: Present: RRR, +S1, +S2. Absent: diastolic murmur, gallop, rubs, systolic murmur - GI/Abdominal GI/Abdominal exam: Present: distended, normal bowel sounds, soft, no peritoneal signs. Absent: tenderness - Extremities Exam Extremities exam: Present: warm, radial pulses palpable and symmetrical. Absent : calf tenderness, cyanotic, pedal edema - Neurological Exam Neurological exam: Present: CN II-XII intact, no focal deficits. Absent: oriented X3, pronater drift, facial droop, speech deficit - Skin Skin exam: Present: dry, intact Additional comments: Internal Medicine: Result - Labs CBC & Chem 7: 07/11/17 06:30 07/11/17 06:30 - ABG Interpretation ABG results: PT/INR, D-dimer PT 28.0 Seconds (9.4-12.1) H 07/13/17 12:46 Consult Discharge Plan - Plan Referrals: Barbra Juarez MD [Primary Care Provider] - Prince Wolf MD [Family Provider] -
[2017-07-13] MEDS ORDERED: *HR* Warfarin 1 MG TABLET PO ONE (18:00)
[2017-07-13] MEDS: Silvasorb 44.4 ML TUBE TP SCH (22:40)
[2017-07-13] MEDS: Aspirin Enteric Coated 81 MG Tablet PO SCH (22:41)
[2017-07-14] MEDS: 0.9 % Sodium Chloride 1,000 ML IVC SCH (03:36)
[2017-07-14] MEDS: *HR* LORazepam 2 MG/ML VIAL IVP SCH ×3 (03:36→14:44)
[2017-07-14] MEDS: Cefepime HCl 1,000 MG in Water for inj. (sterile) 10 ML IVP SCH ×2 (06:50→16:50)
[2017-07-14] MEDS: *HR* HYDROmorphone (PF) 1 MG/ML SYRINGE IVP PRN ×5 (06:50→22:17)
[2017-07-14 08:15] LABS: INR 3.3; Prothrombin Time 36.6 Seconds (9.4-12.1)
[2017-07-14 08:36] LABS: Hemoglobin 7.6 g/dL (11.5-15.4); Mean Corpuscular HGB Conc 30.4 g/dL (31.6-35.5); Mean Corpuscular Hemoglobin 28.5 pg (28.0-33.3); Mean Corpuscular Volume 93.6 fL (83.0-100.0); Mean Platelet Volume 9.8 fL (9.4-12.4); Platelet Count 295 K/mcL (140-400); Red Blood Count 2.67 M/mcL (3.82-4.97); Red Cell Distribution Width 16.2 % (11.5-14.5)
[2017-07-14 09:21] LABS: BUN/Creatinine Ratio 22 (6-26); Blood Urea Nitrogen 13 mg/dL (8-23); Calcium 7.9 mg/dL (8.6-10.3); Carbon Dioxide 30 mEq/L (23-29); Chloride 105 mEq/L (98-107); Glucose 155 mg/dL (70-105); Osmolality,Calculated 291 (280-300); Potassium 3.3 mEq/L (3.5-5.1); Sodium 139 mEq/L (136-145); eGFR For African Americans > 60 (> 60); eGFR For Non-African Americans > 60 (> 60)
--- NOTE | 2017-07-14 09:30 | Internal Med Progress Note ---
Date of Encounter: 07/14/17 Time of Encounter: 09:28 - Assessment and plan (1) MRSA bacteremia Current Visit: Yes Status: Acute Assessment and plan: Recurrent consider possible endocarditis ID consulted Transthoracic echocardiogram shows an ejection fraction of 30% no vegetations GILBERTO recommended Continue vancomycin (2) HCAP (healthcare-associated pneumonia) Current Visit: Yes Status: Acute Assessment and plan: Continue vancomycin day 7 and Cefepime day 6 discontinued Zosyn on day 2 Chest x-ray showed bilateral opacities and bases compatible with possible pneumonia Tylenol for fever. (3) Lipoma Current Visit: Yes Status: Acute Assessment and plan: MRI of the right femur showed a large 21.3 x 9.8 x 7.7 cm fat signal mass. Not exactly sure this is the cause of her issues. No intervention for now per sergery service (4) Afib Current Visit: No Status: Chronic Assessment and plan: Continue amiodarone and discontinue digoxin. INR was up to 7.1. Received Bactrim prior to coming to the hospital. There are no obvious signs of bleeding. Was given 5 mg of IV vitamin K. resumed Coumadin , discontinued lovenox as INR>2 now Qualifiers: Atrial fibrillation type: paroxysmal Qualified Code(s): I48.0 - Paroxysmal atrial fibrillation (5) Right hip pain Current Visit: Yes Status: Acute Assessment and plan: CT scan of the cervical, thoracic and lumbar areas SHowed: L4-5 mild central and moderate bilateral foraminal stenosis. Impingement on exiting right or left L4 nerve roots is possible. L5-S1 moderate bilateral foraminal narrowing. Equivocal for impingement on exiting right or left L5 nerve roots. Mri of the lumbar spine showed: Multilevel degenerative thecal sac narrowing and neural foraminal stenosis, worst at L4-5 where there is mild compression of the exiting right L4 nerve root MRI of the right femur showed a large 21.3 x 9.8 x 7.7 cm mass. Could repeat percent a lipoma affecting the sciatic nerve Dr. Valdes from neurology recommending medical management that she is a very poor surgical candidate Start fentanyl patch, gabapentin, continue pain management with hydrocodone and Dilaudid as needed (6) Supratherapeutic INR Current Visit: Yes Status: Acute (7) COPD (chronic obstructive pulmonary disease) Current Visit: Yes Status: Chronic Assessment and plan: Stable Qualifiers: COPD type: unspecified COPD Qualified Code(s): J44.9 - Chronic obstructive pulmonary disease, unspecified (8) CHF (congestive heart failure) Current Visit: Yes Status: Chronic Assessment and plan: No signs of hypervolemia. The patient is stable. Continue IV fluids Qualifiers: Congestive heart failure type: systolic Congestive heart failure chronicity : chronic Qualified Code(s): I50.22 - Chronic systolic (congestive) heart failure (9) Stage II pressure ulcer of buttock Current Visit: Yes Status: Acute Assessment and plan: per nursing. consult wound care. Qualifiers: Laterality: left Qualified Code(s): L89.322 - Pressure ulcer of left buttock, stage 2 (10) Lacunar infarct, acute Current Visit: Yes Status: Acute Assessment and plan: MRI of the brain showed:Multiple, small infarcts in the bilateral mcdowell radiata and centrum semiovale are compatible with bilateral acute lacunar infarcts. 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% Echocardiogram performed on April showed an ejection fraction of 30% with severe systolic dysfunction and severe diastolic dysfunction Medical still showing ejection fraction of 30%, no vegetations - Subjective Interval history: Sleeping a great time of the day, agitated at times, confused, disoriented in time and place, complaining of severe pain everywhere, unable to complete review of systems due to the patient's confusion - Constitutional Vitals: Temp Pulse Resp BP Pulse Ox 98.8 F 71 18 133/64 93 07/14/17 07:24 07/14/17 07:24 07/14/17 07:24 07/14/17 07:24 07/14/17 07:24 General appearance: Present: cooperative, A&O X 1, mild distress, pleasant, obese, answers questions appropriately Exam: Head Head exam: Present: atraumatic, normocephalic - Eye Eye exam: Present: PERRL, conjuntiva pink, sclera anicteric Pupils: Present: PERRL - Neck Neck exam general surgery: Present: supple, trachea midline. Absent: lymphadenopathy - Respiratory Respiratory exam: Present: decreased breath sounds, CTAB. Absent: accessory muscle use, rales, rhonchi, wheezes - Cardiovascular Cardiovascular exam: Present: RRR, +S1, +S2. Absent: diastolic murmur, gallop, rubs, systolic murmur - GI/Abdominal GI/Abdominal exam: Present: distended, normal bowel sounds, soft, no peritoneal signs. Absent: tenderness - Extremities Exam Extremities exam: Present: warm, radial pulses palpable and symmetrical. Absent : calf tenderness, cyanotic, pedal edema - Neurological Exam Neurological exam: Present: CN II-XII intact, no focal deficits. Absent: oriented X3, pronater drift, facial droop, speech deficit - Skin Skin exam: Present: dry, intact Additional comments: Internal Medicine: Result - Labs CBC & Chem 7: 07/14/17 07:56 07/14/17 07:56 Labs: Short CBC 07/14/17 Range/Units 07:56 WBC 9.7 (4.3-11.1) K/mcL Hgb 7.6 L (11.5-15.4) g/dL Hct 25.0 L (35.3-44.9) % Plt Count 295 (140-400) K/mcL BMP 07/14/17 07:56 Sodium 139 Potassium 3.3 L Chloride 105 Carbon Dioxide 30 H BUN 13 Creatinine 0.60 Glucose 155 H Calcium 7.9 L - ABG Interpretation ABG results: PT/INR, D-dimer PT 36.6 Seconds (9.4-12.1) H 07/14/17 07:56 Consult Discharge Plan - Plan Referrals: Barbra Juarez MD [Primary Care Provider] - Prince Wolf MD [Family Provider] -
--- NOTE | 2017-07-14 09:46 | Event Note ---
Date of Encounter: 07/14/17 Time of Encounter: 09:44 Surgery had previously evaluated patient for CT of the right hip without contrast which showed no acute osseous abnormality. Moderate bilateral hip, sacroiliac joint, and severe pubic synthesis degenerative changes, and a density mass in the posterior aspect of the proximal right thigh for which she was recommended to complete an MRI. The MRI notes that signal mass in the posterior aspect of the right side measuring 21.3 x 9.8 x 7.7 cm in the AP dimensions respectively on image 20 of the coronal T1 sequence and image 28 of the axial T1 sequence. The mass is contained within the posterior compartment and partially encases the sciatic nerve and significant mass effect in the hamstring musculature. 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 Given her current acute comorbidities (acute CVA, PNA, concern for endocarditis) , the area concerning for lipoma is not an acute issue. If desired at at later time, she may follow-up with Dr. Fisher as an outpatient. Surgery will sign off at this time. Thank you for allowing us to participate in [facility].
[2017-07-14] MEDS: Insulin LISPRO 300 UNITS/3 ML VIAL SQ SCH ×3 (10:34→18:28)
[2017-07-14] MEDS ORDERED: Lidocaine Viscous Oral Soln 15 ML SOLUTION MM PRN (12:00)
[2017-07-14] MEDS ORDERED: *HR* FentaNYL (PF) 100 MCG/2 ML VIAL IVP PRN (12:00)
[2017-07-14] MEDS ORDERED: 0.9 % Sodium Chloride 500 ML IVC ONE (12:01)
[2017-07-14] MEDS ORDERED: *HR* Midazolam HCl 5 MG/5 ML VIAL IVP PRN (12:01)
[2017-07-14] MEDS ORDERED: Tetracaine/Benzocaine/Butamben 200MG/SPRAY (100SPY/BOT) MM ONE (12:01)
--- NOTE | 2017-07-14 14:24 | Infectious Disease Progress No ---
Date of Encounter: 07/14/17 Time of Encounter: 14:18 - Assessment and Plan (1) MRSA bacteremia Current Visit: Yes Status: Acute Causative organism: MRSA. Source not clear. Blood cultures drawn 07/08/17 grew MRSA, 2/2 sets. Additional blood cultures drawn 07/09/17 were positive 2/2 sets as well. Repeat blood cultures drawn 07/10/17 x 1 set and 07/12/17 x 1 set are also positive. The patient has one major and one minor Modified Lindsay's Criteria. TTE negative for vegetations. No endocarditis stigmata noted on exam. Get [facility]. Repeat blood cultures x 2 sets now. Continue Vancomycin IV. Pharmacy to dose. Goal trough ~15. Vanc trough 19.7. Duration of treatment depends on the clinical picture. Monitor renal function and for drug toxicity and dose-adjust antibiotics. Avoid insertion of central venous access until blood cultures are negative x 48 hours. (2) Altered mental status Current Visit: Yes Status: Acute Likely secondary to acute lacunar infarct and worsened by infectious process. CT head negative, but MRI of the brain showed multiple small infarcts in the bilateral mcdowell radiata and centrum semiovale compatible with bilateral acute lacunar infarcts. Neurology consulted. Continue to monitor closely. Qualifiers: Altered mental status type: unspecified Qualified Code(s): R41.82 - Altered mental status, unspecified (3) Lacunar infarct, acute Current Visit: Yes Status: Acute (4) Lipoma Current Visit: Yes Status: Acute Location: Right thigh. CT scan of the right hip showed a partially visualized fat density mass in the psoterior aspect of the proximal right thigh with thin internal septations, most likely representing a lipoma or benign atypical lipomatous tumor. MRI of the right femur again showed findings consistent with lipoma vs. benign atypical lipomatous tumor with significant mass effect the hamstring musculature. Qualifiers: Lipoma location: lower extremity Laterality: right Qualified Code(s): D17.23 - Benign lipomatous neoplasm of skin and subcutaneous tissue of right leg (5) Supratherapeutic INR Current Visit: Yes Status: Acute (6) Chronic kidney disease (CKD) stage G3a/A3, moderately decreased glomerular filtration rate (GFR) between 45-59 mL/min/1.73 square meter and albuminuria creatinine ratio greater than 300 mg/g Current Visit: Yes Status: Acute Serum creatinine normal at this time. Continue to trend. Dose-adjust antibiotics as needed. Avoid nephrotoxins as able. (7) Chronic pain syndrome Current Visit: Yes Status: Acute Patient has had multiple MRIs and CT scans of the cervical, lumbar, thoracic spine and hips which revealed degenerative Arthritis with no acute infectious process (8) Arthritis Current Visit: Yes Status: Acute (9) Diabetes mellitus type 2 in obese Current Visit: No Status: Chronic Recommend aggressive glucose monitoring and control. Management per the primary team. - Subjective Interval history: Patient seen and examined. Weekend notes reviewed. No acute events noted. Patient continues to have AMS and cannot give me any ROS information other than she is in pain. Transport at bedside to take the patient to [facility]. Infect Dis PN-Objective Data - Labs CBC & Chem 7: 07/14/17 07:56 07/14/17 07:56 Labs: Laboratory Results - last 24 hr 07/12/17 07/13/17 07/13/17 20:21 06:44 11:43 WBC RBC Hgb Hct MCV MCH MCHC RDW Plt Count MPV PT INR Sodium Potassium Chloride Carbon Dioxide BUN Creatinine Est GFR ( Amer) Est GFR (Non-Af Amer) BUN/Creatinine Ratio Glucose POC Glucose 151 H 157 H 239 H Calculated Osmolality Calcium 07/13/17 07/13/17 07/14/17 15:52 20:42 07:22 WBC RBC Hgb Hct MCV MCH MCHC RDW Plt Count MPV PT INR Sodium Potassium Chloride Carbon Dioxide BUN Creatinine Est GFR ( Amer) Est GFR (Non-Af Amer) BUN/Creatinine Ratio Glucose POC Glucose 280 H 224 H 155 H Calculated Osmolality Calcium 07/14/17 07/14/17 07/14/17 07:56 07:56 07:56 WBC 9.7 RBC 2.67 L Hgb 7.6 L Hct 25.0 L MCV 93.6 MCH 28.5 MCHC 30.4 L RDW 16.2 H Plt Count 295 MPV 9.8 PT 36.6 H INR 3.3 Sodium 139 Potassium 3.3 L Chloride 105 Carbon Dioxide 30 H BUN 13 Creatinine 0.60 Est GFR ( Amer) > 60 Est GFR (Non-Af Amer) > 60 BUN/Creatinine Ratio 22 Glucose 155 H POC Glucose Calculated Osmolality 291 Calcium 7.9 L Cultures: Cultures 07/12/17 03:55 Blood Culture - Final Peripheral Venipuncture Methicillin Resistant S.aureus 07/10/17 14:13 Blood Culture - Final Peripheral Venipuncture Methicillin Resistant S.aureus 07/09/17 14:15 Blood Culture - Final Peripheral Venipuncture Methicillin Resistant S.aureus 07/09/17 14:15 Blood Culture - Final Peripheral Venipuncture Methicillin Resistant S.aureus 07/08/17 00:55 Blood Culture - Final Peripheral Venipuncture Methicillin Resistant S.aureus 07/08/17 00:55 Blood Culture - Final Peripheral Venipuncture Methicillin Resistant S.aureus 07/08/17 08:10 Legionella Antigen - Final Urine,Clean Catch 07/08/17 08:10 Streptococcus pneumoniae Antigen (M - Final Urine,Clean Catch Serology 07/09/17 07/09/17 07/08/17 Range/Units 14:15 14:15 08:10 Urine Color Dark Yellow (Yellow) Urine Clarity Cloudy A (Clear) Urine pH 6.0 (5.0-8.0) pH Units Ur Specific [place] > 1.030 H (1.010-1.025) Urine Protein 100 H (Neg-Trace) mg/dL Urine Glucose (UA) Normal (Normal) mg/dL Urine Ketones Negative (Negative) mg/dL Urine Blood Trace H (Negative) Urine Nitrite Negative (Negative) Urine Bilirubin Small H (Negative) Urine Urobilinogen Normal (Normal) mg/dL Ur Leukocyte Esterase Negative (Negative) Urine Microscopic RBC 5-15 H (0-3) per hpf Urine Microscopic WBC 30-50 H (0-3) per hpf Ur Squamous Epith Cells Moderate H (None-Few) per lpf Urine Bacteria Few (None-Few) per hpf Hyaline Casts Few (None-Few) per lpf Urine Yeast Moderate H (None Seen) per hpf Ur Culture Indicated? NO (NO) A. baumannii (PCR) Not Detected Not Detected (Not Detect) Adelina albicans (PCR) Not Detected Not Detected (Not Detect) C. glabrata (PCR) Not Detected Not Detected (Not Detect) C. krusei (PCR) Not Detected Not Detected (Not Detect) C. parapsilosis (PCR) Not Detected Not Detected (Not Detect) C. tropicalis (PCR) Not Detected Not Detected (Not Detect) Enterobacteriac sp PCR Not Detected Not Detected (Not Detect) E. cloacae complex PCR Not Detected Not Detected (Not Detect) Enterococcus sp PCR Not Detected Not Detected (Not Detect) E. coli (PCR) Not Detected Not Detected (Not Detect) H. influenzae (PCR) Not Detected Not Detected (Not Detect) Klebsiella oxytoca PCR Not Detected Not Detected (Not Detect) Klebsiella pneumoniae Not Detected Not Detected (Not Detect) List. monocytogenes PCR Not Detected Not Detected (Not Detect) N. meningitidis (PCR) Not Detected Not Detected (Not Detect) Proteus species (PCR) Not Detected Not Detected (Not Detect) Serratia marcescens PCR Not Detected Not Detected (Not Detect) Staphylococcus sp PCR DETECTED A DETECTED A (Not Detect) Staph aureus (PCR) DETECTED A DETECTED A (Not Detect) mecA-Methicil Res Gene DETECTED A DETECTED A (Not Detect) Streptococcus sp PCR Not Detected Not Detected (Not Detect) Group A Strep DNA Not Detected Not Detected (Not Detect) Group B Strep (PCR) Not Detected Not Detected (Not Detect) Strep pneumoniae (PCR) Not Detected Not Detected (Not Detect) P. aeruginosa (PCR) Not Detected Not Detected (Not Detect) Alexa/B-Vanco Res Genes Not Detected N/A (Not Detect) KPC (blaKPC) Detect PCR Not Detected N/A (Not Detect) 07/08/17 Range/Units 00:55 Urine Color (Yellow) Urine Clarity (Clear) Urine pH (5.0-8.0) pH Units Ur Specific [place] (1.010-1.025) Urine Protein (Neg-Trace) mg/dL Urine Glucose (UA) (Normal) mg/dL Urine Ketones (Negative) mg/dL Urine Blood (Negative) Urine Nitrite (Negative) Urine Bilirubin (Negative) Urine Urobilinogen (Normal) mg/dL Ur Leukocyte Esterase (Negative) Urine Microscopic RBC (0-3) per hpf Urine Microscopic WBC (0-3) per hpf Ur Squamous Epith Cells (None-Few) per lpf Urine Bacteria (None-Few) per hpf Hyaline Casts (None-Few) per lpf Urine Yeast (None Seen) per hpf Ur Culture Indicated? (NO) A. baumannii (PCR) Not Detected (Not Detect) Adelina albicans (PCR) Not Detected (Not Detect) C. glabrata (PCR) Not Detected (Not Detect) C. krusei (PCR) Not Detected (Not Detect) C. parapsilosis (PCR) Not Detected (Not Detect) C. tropicalis (PCR) Not Detected (Not Detect) Enterobacteriac sp PCR Not Detected (Not Detect) E. cloacae complex PCR Not Detected (Not Detect) Enterococcus sp PCR Not Detected (Not Detect) E. coli (PCR) Not Detected (Not Detect) H. influenzae (PCR) Not Detected (Not Detect) Klebsiella oxytoca PCR Not Detected (Not Detect) Klebsiella pneumoniae Not Detected (Not Detect) List. monocytogenes PCR Not Detected (Not Detect) N. meningitidis (PCR) Not Detected (Not Detect) Proteus species (PCR) Not Detected (Not Detect) Serratia marcescens PCR Not Detected (Not Detect) Staphylococcus sp PCR DETECTED A (Not Detect) Staph aureus (PCR) DETECTED A (Not Detect) mecA-Methicil Res Gene DETECTED A (Not Detect) Streptococcus sp PCR Not Detected (Not Detect) Group A Strep DNA Not Detected (Not Detect) Group B Strep (PCR) Not Detected (Not Detect) Strep pneumoniae (PCR) Not Detected (Not Detect) P. aeruginosa (PCR) Not Detected (Not Detect) Alexa/B-Vanco Res Genes Not Detected (Not Detect) KPC (blaKPC) Detect PCR Not Detected (Not Detect) Exam - Constitutional Vitals: Temp Pulse Resp BP Pulse Ox 97.9 F 74 16 136/104 97 07/14/17 12:27 07/14/17 12:27 07/14/17 12:27 07/14/17 12:27 07/14/17 12:27 General appearance: average body habitus, cooperative, no acute distress - Head Head exam: Present: atraumatic, normal inspection, normocephalic - Eye Eye exam: Present: EOMI, normal appearance, PERRL Pupils: Present: normal accommodation Additional comments: No subconjunctival hemorrhage noted. - ENT ENT exam: Present: mucous membranes moist - Neck Neck exam: Present: normal inspection - Respiratory Respiratory exam: Present: decreased breath sounds, CTAB. Absent: rales, respiratory distress, rhonchi, wheezes - Cardiovascular Cardiovascular exam: Present: RRR, +S1, +S2 - GI/Abdominal GI/Abdominal exam: Present: normal bowel sounds, soft. Absent: distended, tenderness - Extremities Exam Extremities exam: Present: normal inspection. Absent: joint swelling, pedal edema, tenderness Additional comments: Right hip pain with movement. No endocarditis stigmata noted. - Neurological Exam Neurological exam: Present: alert, altered (Does not answer orientation questions when asked.). Absent: oriented X3, facial droop - Skin Skin exam: Present: dry, intact, pallor, warm Additional comments: No endocarditis stigmata noted. Consult Discharge Plan - Plan Referrals: Barbra Juarez MD [Primary Care Provider] - Prince Wolf MD [Family Provider] - - Attending Attestation I examined this patient and my medical decision-making was reviewed with the Resident Physician. I agree with the documented findings, disposition and treatment plan as described except to the extent set forth below.
[2017-07-14] MEDS: Gabapentin 300 MG CAPSULE PO SCH ×3 (14:44→22:17)
[2017-07-14] MEDS: *HR* FentaNYL PATCH 25 MCG PATCH TD SCH (16:50)
[2017-07-14] MEDS: Vancomycin 1,250 MG in D5% in Water 250 ML IVPB SCH (16:51)
[2017-07-14] MEDS: *HR* Amiodarone 200 MG TABLET PO SCH (17:06)
[2017-07-15] MEDS: Insulin LISPRO 300 UNITS/3 ML VIAL SQ SCH ×5 (00:43→22:59)
[2017-07-15] MEDS: *HR* HYDROmorphone (PF) 1 MG/ML SYRINGE IVP PRN ×6 (01:30→20:46)
[2017-07-15] MEDS: *HR* OxyCODONE Immed Rel 5 MG TABLET PO PRN (01:30)
[2017-07-15] MEDS: *HR* LORazepam 2 MG/ML VIAL IVP PRN ×3 (03:32→20:47)
[2017-07-15] MEDS: Cefepime HCl 1,000 MG in Water for inj. (sterile) 10 ML IVP SCH ×2 (05:50→18:05)
[2017-07-15] MEDS: Gabapentin 300 MG CAPSULE PO SCH (09:02)
[2017-07-15] MEDS ORDERED: Furosemide 20 MG/2 ML VIAL IVP ONE (09:07)
[2017-07-15] MEDS: *HR* Amiodarone 200 MG TABLET PO SCH (09:11)
--- NOTE | 2017-07-15 09:54 | Internal Med Progress Note ---
<Jimmy Ryan - Last Filed: 07/15/17 13:59> Date of Encounter: 07/15/17 Time of Encounter: 09:51 - Assessment and plan (1) MRSA bacteremia Current Visit: Yes Status: Acute Assessment and plan: - Persistent MRSA bacteremia. -Positive blood cultures on 07/09, 07/10, 07/12 for MRSA - PReliminary cultures drawn 07/14 show no growth - Has been on vancomycin with goal trough of 15, day 7 - No obvious source identified. - Urine culture mixed and inconclusive, CXR show bilateral consolidation suspicious of PNA, mass/likely lipoma of right medial thigh on MRI - TTE and [facility] negative for vegetations for possible endocarditis. Recommend repeat [facility] in 7-10days if symptoms persist. - ID consulted, appreciate recommendations. - Non septic with temp 99.2, HR 64, RR16, WBC of 9.7 - Altered mental status may be secondary to infection vs hypercapnia vs hypoxia vs recent lacunar infarction Plan - Continue vancomycin and await final results of blood cultures - Daily labs - ID consult - Contact precautions. - Possible biopsy of leg mass vs abdominal CT vs thoracentesis and pleural sampling if infection continues without known source. (2) Acute cerebral infarction Current Visit: Yes Status: Acute Assessment and plan: - Acute right thalamic lacunar infarct as seen on brain MRI on 07/08/17 for right leg weakness - Scattered bilateral small infarcts suggestive of emboli of cardiac or septic etiology. - Neurology following appreciate recommendations. - Left carotid stenosis of 60-79%. - Per daughter, pt is not at baseline mental status. May also be attributable to infection vs metabolic etiologies. Plan - Continue statin, aspirin - Pt/OT when able. - Management of AMS and determine if alternative etiologies are contributing - Not a candidate for aggressive measures at this time due to other medical conditions and severity of other acute conditions. (3) Supratherapeutic INR Current Visit: Yes Status: Acute Assessment and plan: - INR of 8.7 on admission. - Most recently 4.1 this AM Plan - Holding coumadin. Pharmacy to dose. - Continue to monitor for signs of bleed. (4) Stage II pressure ulcer of buttock Current Visit: Yes Status: Acute Assessment and plan: per nursing. consult wound care. - Unlikely source of bacteremia. Qualifiers: Laterality: left Qualified Code(s): L89.322 - Pressure ulcer of left buttock, stage 2 (5) Altered mental status Current Visit: Yes Status: Acute Assessment and plan: - Etiology unclear at this time, likely multifactorial - Pain from femoral nerve compression vs acute cerebral infarct vs infectious - Alternatively respiratory status may be playing a role. Plan - Treat underlying infection. Currently on cefepime and vancomycin - ABG pending. - Pain control - Ammonia level pending. Qualifiers: Altered mental status type: unspecified Qualified Code(s): R41.82 - Altered mental status, unspecified (6) Lipoma Current Visit: Yes Status: Acute Assessment and plan: - MRI of the right femur showed a large 21.3 x 9.8 x 7.7 cm fat signal mass. Not exactly sure this is the cause of her issues. - Surgery consulted, no intervention for now per surgery service due to her other more acute medical issues. Plan - Low threshold to biopsy if no source of infection found - MRI shows dense lesion which appears lobular. Qualifiers: Lipoma location: lower extremity Laterality: right Qualified Code(s): D17.23 - Benign lipomatous neoplasm of skin and subcutaneous tissue of right leg (7) Lumbar spinal stenosis Current Visit: Yes Status: Chronic Assessment and plan: Per CT scans. Has been seen by neurology. - No acute interventions while inpatient. - Pain control Qualifiers: Neurogenic claudication status: unspecified Qualified Code(s): M48.061 - Spinal stenosis, lumbar region without neurogenic claudication (8) Chronic kidney disease (CKD) stage G3a/A3, moderately decreased glomerular filtration rate (GFR) between 45-59 mL/min/1.73 square meter and albuminuria creatinine ratio greater than 300 mg/g Current Visit: Yes Status: Acute Assessment and plan: - Stage III per chart review. - BUN/Cr of 13/0.60 this AM - Appears to be at baseline Plan - Monitor for fluid status - Avoid nephrotoxic agents - Continue vancomycin as benefit outweighs risk. Monitor and renally dose per pharmacy with goal trough of 15. (9) Anemia Current Visit: Yes Status: Acute Assessment and plan: - H/H of 7.9/25.0 this AM. Hgb of 7.6 yesterday - Likely a result of chronic disease, CKD III. Baseline 8-9 - Received 2 units during this admisssion - Unable to determine if symptomatic but has remained stable for past couple days Plan - Continue to monitor daily CBC - Transfuse as necessary Qualifiers: Anemia type: unspecified type Qualified Code(s): D64.9 - Anemia, unspecified (10) HCAP (healthcare-associated pneumonia) Current Visit: Yes Status: Acute Assessment and plan: - Concern for HCAP on CXR showing bilateral opacities - Aspiration coverage due to AMS - Afebrile at this time, no WBC. - Sputum cultures negative. Blood cultures as above. Strep and legionella negative. Plan - Continue vancomycin day 8 and Cefepime day 7 - discontinued Zosyn on day 2 - Tylenol PRN fever. (11) DVT prophylaxis Current Visit: Yes Status: Acute Assessment and plan: Coumadin. Hold that for now as INR is supratherapeutic. - Subjective Interval history: Patient was seen and examined at bedside this morning. Pt is agitated, complaining of pain, with difficult to interpret language. Daughter, who is present at bedside, states that this has been common since her stroke on Friday, especially when she is in pain. - Constitutional Vitals: Temp Pulse Resp BP Pulse Ox 99.5 F 78 18 119/52 95 07/15/17 08:34 07/15/17 08:34 07/15/17 08:34 07/15/17 08:34 07/15/17 08:34 General appearance: Present: cooperative, mild distress, pleasant, obese, answers questions appropriately Exam: Gen.: Vitals noted. No acute distress. AAOx0. Non responsive to questions. Speaking but difficult to interpret. HEENT: PERRL/EOMI, oropharynx clear, Normocephalic, atraumatic Neck: Supple. No adenopathy. Cardiac: RRR, no murmur, +S1/S2 Pulmonary: Decreased breath sounds bilaterally. Otherwise clear. Abdomen: soft, BS noted, no guarding Back: Nontender throughout. MSK: ROM intact, no joint swelling noted Extremities: B/l LE edema which is tender as she yells when compressed. nontender calf, no cyanosis or clubbing Neuro: A&Ox0, unable to determine due to mental status. Internal Medicine: Result - Labs CBC & Chem 7: 07/15/17 12:30 07/15/17 12:30 - ABG Interpretation ABG results: PT/INR, D-dimer PT 36.6 Seconds (9.4-12.1) H 07/14/17 07:56 Consult Discharge Plan - Plan Referrals: Barbra Juarez MD [Primary Care Provider] - Prince Wolf MD [Family Provider] - <JayKurtJc Sue - Last Filed: 07/15/17 19:08> Date of Encounter: 07/15/17 - Assessment and plan (1) MRSA (methicillin resistant Staphylococcus aureus) infection Current Visit: Yes Status: Acute (2) MRSA bacteremia Current Visit: Yes Status: Acute (3) Cerebrovascular accident (CVA) due to bilateral embolism of anterior cerebral arteries Current Visit: Yes Status: Acute (4) Chronic kidney disease (CKD) stage G3a/A3, moderately decreased glomerular filtration rate (GFR) between 45-59 mL/min/1.73 square meter and albuminuria creatinine ratio greater than 300 mg/g Current Visit: Yes Status: Acute (5) Acute metabolic encephalopathy Current Visit: Yes Status: Acute (6) CHF (congestive heart failure) Current Visit: Yes Status: Chronic Qualifiers: Congestive heart failure type: systolic Congestive heart failure chronicity : chronic Qualified Code(s): I50.22 - Chronic systolic (congestive) heart failure (7) Right hip pain Current Visit: Yes Status: Acute (8) COPD (chronic obstructive pulmonary disease) Current Visit: Yes Status: Chronic Qualifiers: COPD type: unspecified COPD Qualified Code(s): J44.9 - Chronic obstructive pulmonary disease, unspecified (9) Afib Current Visit: No Status: Chronic Qualifiers: Atrial fibrillation type: paroxysmal Qualified Code(s): I48.0 - Paroxysmal atrial fibrillation (10) CAD (coronary artery disease) Current Visit: No Status: Chronic Qualifiers: Coronary Disease-Associated Artery/Lesion type: [place] artery [place] vs. transplanted heart: [place] heart Associated angina: without angina Qualified Code(s): I25.10 - Atherosclerotic heart disease of [place] coronary artery without angina pectoris - Constitutional Vitals: Temp Pulse Resp BP Pulse Ox 98.2 F 69 18 124/64 98 07/15/17 15:04 07/15/17 15:04 07/15/17 15:04 07/15/17 15:04 07/15/17 15:04 Internal Medicine: Result - Labs CBC & Chem 7: 07/15/17 12:30 07/15/17 12:30 Labs: Short CBC 07/15/17 Range/Units 12:30 WBC 9.0 (4.3-11.1) K/mcL Hgb 7.9 L (11.5-15.4) g/dL Hct 26.6 L (35.3-44.9) % Plt Count 343 (140-400) K/mcL BMP 07/15/17 12:30 Sodium 137 Potassium 3.4 L Chloride 103 Carbon Dioxide 29 BUN 13 Creatinine 0.65 Glucose 256 H Calcium 8.0 L Urine 07/15/17 Range/Units 13:20 Urine Color Yellow (Yellow) Urine Clarity Clear (Clear) Urine pH 6.0 (5.0-8.0) pH Units Ur Specific [place] 1.011 (1.010-1.025) Urine Protein Negative (Neg-Trace) mg/dL Urine Glucose (UA) Normal (Normal) mg/dL - ABG Interpretation ABG results: PT/INR, D-dimer PT 45.0 Seconds (9.4-12.1) H* 07/15/17 12:30 - Attending Attestation I examined this patient and my medical decision-making was reviewed with the Resident Physician on 07/15/17. I agree with the documented findings, disposition and treatment plan as described except to the extent set forth below. Ms New is currently admitted for acute MRSA bacteremia and CVAs. She remains moderate to high risk due to potential for worsening clinical status. Ms New is very restless and agitated. She is crying with any movement. Very confused at times. Blood cx neg thus far. Exam Restless and confused. Mucus membranes dry Heart irreg Lungs diminished Abd soft I/P 1. MRSA bacteremia 2. CVA Further diagnoses and plan as above.
--- NOTE | 2017-07-15 12:02 | Infectious Disease Progress No ---
Date of Encounter: 07/15/17 Time of Encounter: 12:00 - Assessment and Plan (1) MRSA bacteremia Current Visit: Yes Status: Acute Causative organism: MRSA. Source not clear. The patient did have a femur MRI that showed moderate volume of fluid in the right greater trochanteric bursa, but no evidence of septic arthritis. Blood cultures drawn 07/08/17 grew MRSA, 2/2 sets. Additional blood cultures drawn 07/09/17 were positive 2/2 sets as well. Repeat blood cultures drawn 07/10/17 x 1 set and 07/12/17 x 1 set are also positive. Additional blood cultures drawn 07/14/17 are pending x 2 sets. The patient has one major and one minor Modified Lindsay's Criteria. TTE negative for vegetations. No endocarditis stigmata noted on exam. GILBERTO negative. Continue Vancomycin IV. Pharmacy to dose. Goal trough ~15. Vanc trough 19.7. Duration of treatment depends on the clinical picture. Monitor renal function and for drug toxicity and dose-adjust antibiotics. Avoid insertion of central venous access until blood cultures are negative x 48 hours. (2) Altered mental status Current Visit: Yes Status: Acute Likely secondary to acute lacunar infarct and worsened by infectious process and medications. CT head negative, but MRI of the brain showed multiple small infarcts in the bilateral mcdowell radiata and centrum semiovale compatible with bilateral acute lacunar infarcts. Neurology consulted. Continue to monitor closely. Qualifiers: Altered mental status type: unspecified Qualified Code(s): R41.82 - Altered mental status, unspecified (3) Lacunar infarct, acute Current Visit: Yes Status: Acute (4) Lipoma Current Visit: Yes Status: Acute Location: Right thigh. CT scan of the right hip showed a partially visualized fat density mass in the psoterior aspect of the proximal right thigh with thin internal septations, most likely representing a lipoma or benign atypical lipomatous tumor. MRI of the right femur again showed findings consistent with lipoma vs. benign atypical lipomatous tumor with significant mass effect the hamstring musculature. Qualifiers: Lipoma location: lower extremity Laterality: right Qualified Code(s): D17.23 - Benign lipomatous neoplasm of skin and subcutaneous tissue of right leg (5) Supratherapeutic INR Current Visit: Yes Status: Acute (6) Chronic kidney disease (CKD) stage G3a/A3, moderately decreased glomerular filtration rate (GFR) between 45-59 mL/min/1.73 square meter and albuminuria creatinine ratio greater than 300 mg/g Current Visit: Yes Status: Acute Serum creatinine normal at this time. Continue to trend. Dose-adjust antibiotics as needed. Avoid nephrotoxins as able. (7) Chronic pain syndrome Current Visit: Yes Status: Acute Patient has had multiple MRIs and CT scans of the cervical, lumbar, thoracic spine and hips which revealed degenerative arthritis with no acute infectious process. (8) Arthritis Current Visit: Yes Status: Acute (9) Diabetes mellitus type 2 in obese Current Visit: No Status: Chronic Recommend aggressive glucose monitoring and control. Management per the primary team. 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 There was also a moderate volume of fluid in the right greater trochanteric bursa. Not sure if this could be the source of the patient's bacteremia. Recommend ortho to evaluate for possible aspiration of the joint given the patient's severe pain and MRSA bacteremia without a source. (11) HCAP (healthcare-associated pneumonia) Current Visit: Yes Status: Acute CXR completed 07/08/17 showed findings suspicious for bibasilar atelectasis or PNA. Not sure if the patient truly has PNA or not. Currently on day 6 of Cefepime and received 1 day of Zosyn prior to switching to cefepime. Repeat CXR now. Continue Cefepime for not, but given the patient's altered mental status, she is at risk for aspiration if PNA is confirmed. We may need to add anaerobic coverage, but will wait and see what the repeat CXR shows. (12) Crain catheter in place Current Visit: Yes Status: Acute Crain catheter placed on admission. Clinically, the urine is dark, cloudy, with large amount of sediment. Recommend switching out crain catheter. - Subjective Interval history: Patient seen and examined. No acute events noted overnight. Patient continues to have AMS and cannot give me any ROS information other than she is in pain. No new issues per the patient's daughter. Infect Dis PN-Objective Data - Labs CBC & Chem 7: 07/15/17 12:30 07/15/17 12:30 Labs: Laboratory Results - last 24 hr 07/14/17 07/14/17 15:48 22:19 POC Glucose 172 H 174 H Cultures: Cultures 07/14/17 07:56 Blood Culture - Preliminary Peripheral Venipuncture No growth. 07/12/17 03:55 Blood Culture - Final Peripheral Venipuncture Methicillin Resistant S.aureus 07/10/17 14:13 Blood Culture - Final Peripheral Venipuncture Methicillin Resistant S.aureus 07/09/17 14:15 Blood Culture - Final Peripheral Venipuncture Methicillin Resistant S.aureus 07/09/17 14:15 Blood Culture - Final Peripheral Venipuncture Methicillin Resistant S.aureus 07/08/17 00:55 Blood Culture - Final Peripheral Venipuncture Methicillin Resistant S.aureus 07/08/17 00:55 Blood Culture - Final Peripheral Venipuncture Methicillin Resistant S.aureus 07/08/17 08:10 Legionella Antigen - Final Urine,Clean Catch 07/08/17 08:10 Streptococcus pneumoniae Antigen (M - Final Urine,Clean Catch Serology 07/09/17 07/09/17 07/08/17 Range/Units 14:15 14:15 08:10 Urine Color Dark Yellow (Yellow) Urine Clarity Cloudy A (Clear) Urine pH 6.0 (5.0-8.0) pH Units Ur Specific [place] > 1.030 H (1.010-1.025) Urine Protein 100 H (Neg-Trace) mg/dL Urine Glucose (UA) Normal (Normal) mg/dL Urine Ketones Negative (Negative) mg/dL Urine Blood Trace H (Negative) Urine Nitrite Negative (Negative) Urine Bilirubin Small H (Negative) Urine Urobilinogen Normal (Normal) mg/dL Ur Leukocyte Esterase Negative (Negative) Urine Microscopic RBC 5-15 H (0-3) per hpf Urine Microscopic WBC 30-50 H (0-3) per hpf Ur Squamous Epith Cells Moderate H (None-Few) per lpf Urine Bacteria Few (None-Few) per hpf Hyaline Casts Few (None-Few) per lpf Urine Yeast Moderate H (None Seen) per hpf Ur Culture Indicated? NO (NO) A. baumannii (PCR) Not Detected Not Detected (Not Detect) Adelina albicans (PCR) Not Detected Not Detected (Not Detect) C. glabrata (PCR) Not Detected Not Detected (Not Detect) C. krusei (PCR) Not Detected Not Detected (Not Detect) C. parapsilosis (PCR) Not Detected Not Detected (Not Detect) C. tropicalis (PCR) Not Detected Not Detected (Not Detect) Enterobacteriac sp PCR Not Detected Not Detected (Not Detect) E. cloacae complex PCR Not Detected Not Detected (Not Detect) Enterococcus sp PCR Not Detected Not Detected (Not Detect) E. coli (PCR) Not Detected Not Detected (Not Detect) H. influenzae (PCR) Not Detected Not Detected (Not Detect) Klebsiella oxytoca PCR Not Detected Not Detected (Not Detect) Klebsiella pneumoniae Not Detected Not Detected (Not Detect) List. monocytogenes PCR Not Detected Not Detected (Not Detect) N. meningitidis (PCR) Not Detected Not Detected (Not Detect) Proteus species (PCR) Not Detected Not Detected (Not Detect) Serratia marcescens PCR Not Detected Not Detected (Not Detect) Staphylococcus sp PCR DETECTED A DETECTED A (Not Detect) Staph aureus (PCR) DETECTED A DETECTED A (Not Detect) mecA-Methicil Res Gene DETECTED A DETECTED A (Not Detect) Streptococcus sp PCR Not Detected Not Detected (Not Detect) Group A Strep DNA Not Detected Not Detected (Not Detect) Group B Strep (PCR) Not Detected Not Detected (Not Detect) Strep pneumoniae (PCR) Not Detected Not Detected (Not Detect) P. aeruginosa (PCR) Not Detected Not Detected (Not Detect) Alexa/B-Vanco Res Genes Not Detected N/A (Not Detect) KPC (blaKPC) Detect PCR Not Detected N/A (Not Detect) 07/08/17 Range/Units 00:55 Urine Color (Yellow) Urine Clarity (Clear) Urine pH (5.0-8.0) pH Units Ur Specific [place] (1.010-1.025) Urine Protein (Neg-Trace) mg/dL Urine Glucose (UA) (Normal) mg/dL Urine Ketones (Negative) mg/dL Urine Blood (Negative) Urine Nitrite (Negative) Urine Bilirubin (Negative) Urine Urobilinogen (Normal) mg/dL Ur Leukocyte Esterase (Negative) Urine Microscopic RBC (0-3) per hpf Urine Microscopic WBC (0-3) per hpf Ur Squamous Epith Cells (None-Few) per lpf Urine Bacteria (None-Few) per hpf Hyaline Casts (None-Few) per lpf Urine Yeast (None Seen) per hpf Ur Culture Indicated? (NO) A. baumannii (PCR) Not Detected (Not Detect) Adelina albicans (PCR) Not Detected (Not Detect) C. glabrata (PCR) Not Detected (Not Detect) C. krusei (PCR) Not Detected (Not Detect) C. parapsilosis (PCR) Not Detected (Not Detect) C. tropicalis (PCR) Not Detected (Not Detect) Enterobacteriac sp PCR Not Detected (Not Detect) E. cloacae complex PCR Not Detected (Not Detect) Enterococcus sp PCR Not Detected (Not Detect) E. coli (PCR) Not Detected (Not Detect) H. influenzae (PCR) Not Detected (Not Detect) Klebsiella oxytoca PCR Not Detected (Not Detect) Klebsiella pneumoniae Not Detected (Not Detect) List. monocytogenes PCR Not Detected (Not Detect) N. meningitidis (PCR) Not Detected (Not Detect) Proteus species (PCR) Not Detected (Not Detect) Serratia marcescens PCR Not Detected (Not Detect) Staphylococcus sp PCR DETECTED A (Not Detect) Staph aureus (PCR) DETECTED A (Not Detect) mecA-Methicil Res Gene DETECTED A (Not Detect) Streptococcus sp PCR Not Detected (Not Detect) Group A Strep DNA Not Detected (Not Detect) Group B Strep (PCR) Not Detected (Not Detect) Strep pneumoniae (PCR) Not Detected (Not Detect) P. aeruginosa (PCR) Not Detected (Not Detect) Alexa/B-Vanco Res Genes Not Detected (Not Detect) KPC (blaKPC) Detect PCR Not Detected (Not Detect) Exam - Constitutional Vitals: Temp Pulse Resp BP Pulse Ox 99.5 F 78 18 119/52 95 07/15/17 08:34 07/15/17 08:34 07/15/17 08:34 07/15/17 08:34 07/15/17 08:34 General appearance: cooperative, obese, no febrile - Head Head exam: Present: atraumatic, normal inspection, normocephalic - Eye Eye exam: Present: EOMI, normal appearance, PERRL Pupils: Present: normal accommodation Additional comments: No subconjunctival hemorrhage noted. - ENT ENT exam: Present: mucous membranes dry - Neck Neck exam: Present: normal inspection - Respiratory Respiratory exam: Present: decreased breath sounds (throughout). Absent: rales , respiratory distress, rhonchi, wheezes - Cardiovascular Cardiovascular exam: Present: RRR, +S1, +S2 - GI/Abdominal GI/Abdominal exam: Present: normal bowel sounds, soft. Absent: distended, tenderness Additional comments: Crain catheter noted to be draining cloudy yellow urine with large amount of sediment. - Extremities Exam Extremities exam: Present: tenderness (RLE). Absent: joint swelling, pedal edema Additional comments: PAtient complains of pain, but unable to tell me where. - Neurological Exam Neurological exam: Present: alert, altered. Absent: oriented X3, no focal deficits (Decreased spontaneous movement of the RUE and RLE.) - Psychiatric Psychiatric exam: Present: normal affect, normal mood - Skin Skin exam: Present: dry, intact, normal color, warm Consult Discharge Plan - Plan Referrals: Barbra Juarez MD [Primary Care Provider] - Prince Wolf MD [Family Provider] - - Attending Attestation I examined this patient and my medical decision-making was reviewed with the Resident Physician. I agree with the documented findings, disposition and treatment plan as described except to the extent set forth below. We'll repeat the chest x-ray, urine appears purulence and she has decreased output. Asked nursing staff to remove and exchange the Crain and if the urine continues to be purulent repeat a urine analysis and culture. Discussed at length with daughter. Not sure what is causing her altered mental status. Could be the bacteremia itself versus the polypharmacy versus a urine infection versus the CVA. We will check a chest x-ray, consult orthopedic on a fluid collection in the bursa of the right femur, continue current antibiotics.
[2017-07-15 12:42] LABS: Hematocrit 26.6 % (35.3-44.9); Hemoglobin 7.9 g/dL (11.5-15.4); Mean Corpuscular HGB Conc 29.7 g/dL (31.6-35.5); Mean Corpuscular Hemoglobin 27.9 pg (28.0-33.3); Mean Platelet Volume 9.7 fL (9.4-12.4); Platelet Count 343 K/mcL (140-400); Red Blood Count 2.83 M/mcL (3.82-4.97); Red Cell Distribution Width 16.2 % (11.5-14.5)
[2017-07-15 12:43] LABS: INR 4.1
[2017-07-15 12:54] LABS: BUN/Creatinine Ratio 20 (6-26); Blood Urea Nitrogen 13 mg/dL (8-23); Carbon Dioxide 29 mEq/L (23-29); Chloride 103 mEq/L (98-107); Glucose 256 mg/dL (70-105); Osmolality,Calculated 293 (280-300); Potassium 3.4 mEq/L (3.5-5.1); Sodium 137 mEq/L (136-145); eGFR For African Americans > 60 (> 60); eGFR For Non-African Americans > 60 (> 60)
[2017-07-15 13:39] LABS: Bilirubin,Urine Negative (Negative); Blood,Urine Trace (Negative); Clarity,Urine Clear (Clear); Color,Urine Yellow (Yellow); Glucose,Urine (UA) Normal (Normal); Ketones,Urine Negative (Negative); Leukocyte Esterase,Urine Trace (Negative); Nitrite,Urine Negative (Negative); Protein,Urine Negative (Neg-Trace); Specific Gravity,Urine 1.011 (1.010-1.025); Urobilinogen,Urine Normal (Normal)
[2017-07-15 13:41] LABS: Bacteria,Urine None Seen per hpf (None-Few); Hyaline Casts,Urine None Seen per lpf (None-Few); Squamous Epithelial Cell,Urine Moderate per lpf (None-Few)
[2017-07-15 13:55] LABS: Yeast,Urine Few per hpf (None Seen)
[2017-07-15] MEDS: Vancomycin 1,250 MG in D5% in Water 250 ML IVPB SCH (14:03)
--- NOTE | 2017-07-15 18:12 | Orthopedic Consult Note ---
Date of Encounter: 07/15/17 Time of Encounter: 16:30 Assessment and Plan (1) Right hip pain Current Visit: Yes Status: Acute The right greater trochanteric bursa was prepped using alcohol and an 18 g needle was used to aspirate 2 cc of bursal fluid from the right hip. Fluid was straw colored with no gross purulence. Sent for gram stain and culture. Tolerated with no issues. -Follow cultures -Antibiotics per ID -No plans for surgery History of Present Illness Chief complaint: R hip pain and swelling HPI: Ms. New is a 77 year old female with PMHx of CHF, COPD, arthritis, CKD who was admitted 10 days ago to [facility] with right hip pain and swelling radiating down the leg as well as altered mental status. History is from the medical record and the patients daughter. No known trauma. Patient has been diagnosed with MRSA bacteremia upon admission. ID and medical team are working up possible causes of bacteremia. Ortho has been consulted for evaluation of right greater trochanteric bursitis. Past Med Surg Social Fam HX - Past Medical History Medical history: arthritis, atrial fibrillation, CHF, COPD, coronary artery disease, GERD, hyperlipidemia, hypertension, myocardial infarction Psychiatric history: no psych history - Past Surgical History Surgical History: other - Social History Smoking Status: Never smoker Smokeless Tobacco Status: No Alcohol use: none Drug use: none - Family History Mother Age: 25 Living Status: Age at : 28 Cause of : CO Hx Family Cardiac Disorders: Yes Hx Family Respiratory Disorders: No Hx Family Cancer: No Hx Family GI Disorders: No Hx Family Genitourinary Disorders: No Hx Family Endocrine Disorder: No Hx Family Musculoskeletal Disorders: No Hx Family Neuromuscular Disorders: No Hx Family Neurologic Disorders: No Hx Family HEENT Disorders: No Father Race: Family Member Ethnicity: Non- Living Status: Age at : 58 Cause of : CO Hx Family Cardiac Disorders: Yes (CO) Brother Race: Family Member Ethnicity: Non- Living Status: Age at : 76 Cause of : Lung cancer Hx Family Cancer: Yes (Lung) Medications and Allergies Albuterol Sulfate [Albuterol Inhaler] 2 puff IH Q6H PRN 05/27/17 [History] Budesonide/Formoterol 80/4.5 [Symbicort 80/4.5] 2 puff IH BID 05/27/17 [History ] Amiodarone [Cordarone] 200 mg PO DAILY tablet 06/06/17 [Rx] Aspirin Enteric Coated [Aspirin EC] 81 mg PO Q48H #0 tablet.dr 06/20/17 [Rx] Digoxin [Lanoxin] 0.25 mg PO DAILY #30 tablet 06/20/17 [Rx] Furosemide [Lasix] 20 mg PO DAILY #0 tablet 06/20/17 [Rx] Isosorbide MONOnitrate (24 HR) [Imdur] 60 mg PO DAILY #30 tab.er.24h 06/20/17 [ Rx] Lisinopril [Zestril] 5 mg PO DAILY #30 tablet 06/20/17 [Rx] Ranitidine HCl [Heartburn Relief] 150 mg PO BID PRN #0 06/20/17 [Rx] Warfarin [Coumadin] 1.5 mg PO QPM 07/06/17 [History] 3 Allergy/AdvReac Type Severity Reaction Status Date / Time No Known Allergies Allergy Verified 07/05/17 13:12 ROS unobtainable: due to mental status Physical Exam - Constitutional Vitals: Temp Pulse Resp BP Pulse Ox 98.2 F 69 18 124/64 98 07/15/17 15:04 07/15/17 15:04 07/15/17 15:04 07/15/17 15:04 07/15/17 15:04 General appearance IM: A&O X 0, disheveled Exam: Exam limited due to mental status, history from daughter Constitutional -Vitals reviewed Psychiatric -AAOx0. Respiratory: -Respiratory effort normal Abdomen: -Soft abdomen -Non tender -Non distended: Left upper extremity: -No deformities. The overlying skin is intact. No obvious signs of acute trauma. -No tenderness to palpation throughout. -No significant pain with passive motion of the shoulder, elbow, wrist, and fingers within the limits of the bed. -Radial pulse is present; Fingers have good capillary refill. Right upper extremity: -No deformities. The overlying skin is intact. No obvious signs of acute trauma. -No tenderness to palpation throughout. -No significant pain with passive motion of the shoulder, elbow, wrist, and fingers within the limits of the bed. -Radial pulse is present; Fingers have good capillary refill. Left lower extremity: -No deformities. The overlying skin is intact. No obvious signs of acute trauma. -No TTP -No pain with passive motion of the hip, knee, ankle, and toes within the limits of the bed. -No pain with axial loading of the thigh. -Distal edema -Toes have good capillary refill. Right lower extremity: -No deformities. The overlying skin is intact. No obvious signs of acute trauma. -TTP over the greater trochanter. Mild swelling. No erythema -Pain with ROM of right lower extremity -Distal edema -Toes have good capillary refill Results - Labs Result Diagrams: 07/15/17 12:30 07/15/17 12:30 Labs: Abnormal lab results RBC 2.83 M/mcL (3.82-4.97) L 07/15/17 12:30 Hgb 7.9 g/dL (11.5-15.4) L 07/15/17 12:30 Hct 26.6 % (35.3-44.9) L 07/15/17 12:30 MCH 27.9 pg (28.0-33.3) L 07/15/17 12:30 MCHC 29.7 g/dL (31.6-35.5) L 07/15/17 12:30 RDW 16.2 % (11.5-14.5) H 07/15/17 12:30 Lymphocytes # 0.5 K/mcL (0.6-4.6) L 07/10/17 04:15 Nucleated RBCs/100 WBC 0.4 /100 WBC (0) H 07/09/17 04:40 PT 45.0 Seconds (9.4-12.1) H* 07/15/17 12:30 APTT 56.0 Seconds (26.0-36.0) H 07/06/17 05:59 Potassium 3.4 mEq/L (3.5-5.1) L 07/15/17 12:30 Glucose 256 mg/dL (70-105) H 07/15/17 12:30 POC Glucose 258 (58-89) H 07/15/17 12:42 Hemoglobin A1c 7.8 % (-5.6) H 07/08/17 00:55 Calcium 8.0 mg/dL (8.6-10.3) L 07/15/17 12:30 Serum Total Protein 6.3 g/dL (6.4-8.9) L 07/10/17 04:15 Albumin 2.4 g/dL (3.5-5.7) L 07/10/17 04:15 Globulin 3.9 g/dL (2.4-3.5) H 07/10/17 04:15 Albumin/Globulin Ratio 0.6 (1.1-2.2) L 07/10/17 04:15 Cholesterol 210 mg/dL (< 200) H 07/06/17 05:59 LDL Cholesterol, Calc 145 mg/dL (0-99) H 07/06/17 05:59 HDL Cholesterol 38 mg/dL (40-59) L 07/06/17 05:59 Cholesterol/HDL Ratio 5.5 (0-4.9) H 07/06/17 05:59 Urine Blood Trace (Negative) H 07/15/17 13:20 Ur Leukocyte Esterase Trace (Negative) H 07/15/17 13:20 Urine Microscopic RBC 3-5 per hpf (0-3) H 07/15/17 13:20 Urine Microscopic WBC 3-5 per hpf (0-3) H 07/15/17 13:20 Ur Squamous Epith Cells Moderate per lpf (None-Few) H 07/15/17 13:20 Urine Yeast Few per hpf (None Seen) H 07/15/17 13:20 Ur Culture Indicated? YES (NO) A 07/15/17 13:20 Staphylococcus sp PCR DETECTED (Not Detect) A 07/09/17 14:15 Staph aureus (PCR) DETECTED (Not Detect) A 07/09/17 14:15 mecA-Methicil Res Gene DETECTED (Not Detect) A 07/09/17 14:15 H & H 07/15/17 Range/Units 12:30 Hgb 7.9 L (11.5-15.4) g/dL Hct 26.6 L (35.3-44.9) % All other labs normal. - Diagnostic results Hip MRI: report reviewed, image reviewed (Fluid in greater trochanteric bursa. Benign lipomatous mass posterior thigh) Hip CT: report reviewed, image reviewed Consult Discharge Plan - Plan Referrals: Barbra Juarez MD [Primary Care Provider] - Prince Wolf MD [Family Provider] -
[2017-07-15 19:14] LABS: ABG Base Excess 7 mEq/L (-2 to 3); ABG HCO3 33 mEq/L (21-27); ABG Oxygen Saturation 95 % (95-98); ABG PCO2 48 mmHg (35-45); ABG PH 7.44 pH Units (7.32-7.45); ABG PO2 73 mmHg (85-104); ABG TCO2 34 mEq/L (20-26); Blood Gas Modality NC
[2017-07-15] MEDS: Aspirin Enteric Coated 81 MG Tablet PO SCH (22:59)
[2017-07-16] MEDS: Silvasorb 44.4 ML TUBE TP SCH ×3 (00:57→23:11)
[2017-07-16] MEDS: Gabapentin 300 MG CAPSULE PO SCH (00:59)
[2017-07-16] MEDS: *HR* HYDROmorphone (PF) 1 MG/ML SYRINGE IVP PRN ×7 (01:56→21:43)
[2017-07-16] MEDS: *HR* LORazepam 2 MG/ML VIAL IVP PRN ×4 (01:57→23:19)
[2017-07-16 04:12] LABS: Acinetobacter baumannii by PCR Not Detected (Not Detect); Candida albicans by PCR Not Detected (Not Detect); Candida glabrata by PCR Not Detected (Not Detect); Candida krusei by PCR Not Detected (Not Detect); Candida parapsilosis by PCR Not Detected (Not Detect); Candida tropicalis by PCR Not Detected (Not Detect); Enterococcus by PCR Not Detected (Not Detect); Escherichia coli by PCR Not Detected (Not Detect); Klebsiella oxytoca by PCR Not Detected (Not Detect); Klebsiella pneumoniae by PCR Not Detected (Not Detect); Pseudomonas aeruginosa by PCR Not Detected (Not Detect); Serratia marcescens by PCR Not Detected (Not Detect); Staphylococcus aureus by PCR ***DETECTED*** (Not Detect); Streptococcus agalactiae(B)PCR Not Detected (Not Detect); Streptococcus by PCR Not Detected (Not Detect); Streptococcus pneumoniae PCR Not Detected (Not Detect); Streptococcus pyogenes (A) PCR Not Detected (Not Detect); blaKPC Carbapenem-Resist Gene Not Detected (Not Detect); mecA Methicillin-Resist Gene ***DETECTED*** (Not Detect); vanA/B Vancomycin-Resist Genes Not Detected (Not Detect)
[2017-07-16 04:42] LABS: Basophils % 0.3 %; Eosinophils # 0.1 K/mcL (0.0-0.6); Eosinophils % 1.5 %; Hematocrit 24.3 % (35.3-44.9); Hemoglobin 7.5 g/dL (11.5-15.4); Immature Granulocytes % 0.9 % (0-4); Lymphocytes % 13.4 %; Mean Corpuscular HGB Conc 30.9 g/dL (31.6-35.5); Mean Corpuscular Hemoglobin 28.3 pg (28.0-33.3); Mean Corpuscular Volume 91.7 fL (83.0-100.0); Mean Platelet Volume 9.3 fL (9.4-12.4); Monocytes # 0.6 K/mcL (0.0-1.3); Monocytes % 7.5 %; Neutrophils # 5.7 K/mcL (1.6-8.9); Platelet Count 312 K/mcL (140-400); Red Blood Count 2.65 M/mcL (3.82-4.97); Red Cell Distribution Width 16.2 % (11.5-14.5); Segmented Neutrophils % 76.4 %
[2017-07-16 04:57] LABS: Alanine Aminotransferase 8 Units/L (7-52); Albumin/Globulin Ratio 0.5 (1.1-2.2); Alkaline Phosphatase 32 Units/L (34-104); Aspartate Amino Transferase 8 Units/L (13-39); BUN/Creatinine Ratio 17 (6-26); Bilirubin,Total 0.5 mg/dL (0.3-1.0); Blood Urea Nitrogen 11 mg/dL (8-23); Calcium 7.7 mg/dL (8.6-10.3); Carbon Dioxide 30 mEq/L (23-29); Chloride 103 mEq/L (98-107); Globulin 3.7 g/dL (2.4-3.5); Glucose 157 mg/dL (70-105); Osmolality,Calculated 289 (280-300); Sodium 138 mEq/L (136-145); Total Protein 5.7 g/dL (6.4-8.9); eGFR For African Americans > 60 (> 60); eGFR For Non-African Americans > 60 (> 60)
[2017-07-16 05:00] LABS: INR 4.7
[2017-07-16] MEDS: Cefepime HCl 1,000 MG in Water for inj. (sterile) 10 ML IVP SCH (05:07)
[2017-07-16] MEDS: Insulin LISPRO 300 UNITS/3 ML VIAL SQ SCH ×4 (08:24→23:20)
[2017-07-16] MEDS: *HR* Amiodarone 200 MG TABLET PO SCH (08:24)
--- NOTE | 2017-07-16 12:07 | Infectious Disease Progress No ---
Date of Encounter: 07/16/17 Time of Encounter: 12:05 - Assessment and Plan (1) MRSA bacteremia Current Visit: Yes Status: Acute Causative organism: MRSA. Source not clear. The patient did have a femur MRI that showed moderate volume of fluid in the right greater trochanteric bursa, but no evidence of septic arthritis. Joint aspiration negative for septic arthritis as well. Blood cultures drawn 07/08/17 grew MRSA, 2/2 sets. Additional blood cultures drawn 07/09/17 were positive 2/2 sets as well. Repeat blood cultures drawn 07/10/17 x 1 set and 07/12/17 x 1 set are also positive. Additional blood cultures drawn 07/14/17 are positive 1/2 sets. The patient has one major and one minor Modified Lindsay's Criteria. TTE negative for vegetations. No endocarditis stigmata noted on exam. GILBERTO negative. CODY of Vanc is 1, so it is unlikely that the patient is failing Vanc due to high CODY. Etiology of persistent bacteremia not clear, but the most recent set of blood cultures were drawn <48 hours after the patient had therapeutic Vanc trough, which could also be contributing to this. Repeat blood cultures x 2 sets now and again in 48 hours. Continue Vancomycin IV. Pharmacy to dose. Goal trough ~15. Vanc trough 17.6 07/15. Duration of treatment depends on the clinical picture. Monitor renal function and for drug toxicity and dose-adjust antibiotics. Avoid insertion of central venous access until blood cultures are negative x 48 hours. (2) Altered mental status Current Visit: Yes Status: Acute Likely secondary to acute lacunar infarct and worsened by infectious process and medications. It appears the patient's mental status has declined over the past few days. CT head negative, but MRI of the brain showed multiple small infarcts in the bilateral mcdowell radiata and centrum semiovale compatible with bilateral acute lacunar infarcts. Neurology consulted, but signed off. Will call and ask them to see the patient again. Continue to monitor closely. Qualifiers: Altered mental status type: unspecified Qualified Code(s): R41.82 - Altered mental status, unspecified (3) Lacunar infarct, acute Current Visit: Yes Status: Acute (4) Lipoma Current Visit: Yes Status: Acute Location: Right thigh. CT scan of the right hip showed a partially visualized fat density mass in the psoterior aspect of the proximal right thigh with thin internal septations, most likely representing a lipoma or benign atypical lipomatous tumor. MRI of the right femur again showed findings consistent with lipoma vs. benign atypical lipomatous tumor with significant mass effect the hamstring musculature. Qualifiers: Lipoma location: lower extremity Laterality: right Qualified Code(s): D17.23 - Benign lipomatous neoplasm of skin and subcutaneous tissue of right leg (5) Supratherapeutic INR Current Visit: Yes Status: Acute (6) Chronic kidney disease (CKD) stage G3a/A3, moderately decreased glomerular filtration rate (GFR) between 45-59 mL/min/1.73 square meter and albuminuria creatinine ratio greater than 300 mg/g Current Visit: Yes Status: Acute Serum creatinine normal at this time. Continue to trend. Dose-adjust antibiotics as needed. Avoid nephrotoxins as able. (7) Chronic pain syndrome Current Visit: Yes Status: Acute Patient has had multiple MRIs and CT scans of the cervical, lumbar, thoracic spine and hips which revealed degenerative arthritis with no acute infectious process. (8) Arthritis Current Visit: Yes Status: Acute (9) Diabetes mellitus type 2 in obese Current Visit: No Status: Chronic Recommend aggressive glucose monitoring and control. Management per the primary team. 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 There was also a moderate volume of fluid in the right greater trochanteric bursa. Ortho consulted and appreciate their recommendations. Status post right hip bursa aspiration. Did not appear to be pus. Gram stain negative. Pain management per the primary team. (11) HCAP (healthcare-associated pneumonia) Current Visit: Yes Status: Acute CXR completed 07/08/17 showed findings suspicious for bibasilar atelectasis or PNA. Not sure if the patient truly has PNA or not. Currently on day 7 of Cefepime and received 1 day of Zosyn prior to switching to cefepime. CXR shows worsening left pneumonia. Concern for aspiration. Discontinue Cefepime. Start Zosyn 3.375 grams IV Q8H. Duration of treatment depends on the clinical picture. (12) Crain catheter in place Current Visit: Yes Status: Acute Crain catheter placed on admission. Urine color and clarity removed since the crain was switched out. - Subjective Interval history: Patient seen and examined. No acute events noted overnight. Patient continues to have AMS and cannot give me any ROS information other than she is in pain. Daughter reports concern that the patient is not being turned enough and her linens have not been changed. She also reports concern that the patient has a decubitus ulcer on her left buttock that has not been assessed. She also reports that the patient has been somewhat combative, tearful, and pulling at her lines and oxygen tubing. Infect Dis PN-Objective Data - Labs CBC & Chem 7: 07/16/17 04:31 07/16/17 04:31 Labs: Laboratory Results - last 24 hr 07/14/17 07/15/17 07/15/17 07:56 08:40 12:30 WBC RBC Hgb Hct MCV MCH MCHC RDW Plt Count MPV Immature Gran % Seg Neutrophils % Lymphocytes % Monocytes % Eosinophils % Basophils % Neutrophils # Lymphocytes # Monocytes # Eosinophils # Basophils # PT 45.0 H* INR 4.1 ABG pH ABG pCO2 ABG pO2 ABG HCO3 ABG Total CO2 ABG O2 Saturation ABG Base Excess Blood Gas Modality Sodium Potassium Chloride Carbon Dioxide BUN Creatinine Est GFR ( Amer) Est GFR (Non-Af Amer) BUN/Creatinine Ratio Glucose POC Glucose 158 H Calculated Osmolality Calcium Total Bilirubin AST ALT Alkaline Phosphatase Ammonia Serum Total Protein Albumin Globulin Albumin/Globulin Ratio Urine Color Urine Clarity Urine pH Ur Specific [place] Urine Protein Urine Glucose (UA) Urine Ketones Urine Blood Urine Nitrite Urine Bilirubin Urine Urobilinogen Ur Leukocyte Esterase Urine Microscopic RBC Urine Microscopic WBC Ur Squamous Epith Cells Urine Bacteria Hyaline Casts Urine Yeast Ur Culture Indicated? Vancomycin Trough A. baumannii (PCR) Not Detected Adelina albicans (PCR) Not Detected C. glabrata (PCR) Not Detected C. krusei (PCR) Not Detected C. parapsilosis (PCR) Not Detected C. tropicalis (PCR) Not Detected Enterobacteriac sp PCR Not Detected E. cloacae complex PCR Not Detected Enterococcus sp PCR Not Detected E. coli (PCR) Not Detected H. influenzae (PCR) Not Detected Klebsiella oxytoca PCR Not Detected Klebsiella pneumoniae Not Detected List. monocytogenes PCR Not Detected N. meningitidis (PCR) Not Detected Proteus species (PCR) Not Detected Serratia marcescens PCR Not Detected Staphylococcus sp PCR DETECTED A Staph aureus (PCR) DETECTED A mecA-Methicil Res Gene DETECTED A Streptococcus sp PCR Not Detected Group A Strep DNA Not Detected Group B Strep (PCR) Not Detected Strep pneumoniae (PCR) Not Detected P. aeruginosa (PCR) Not Detected Alexa/B-Vanco Res Genes Not Detected KPC (blaKPC) Detect PCR Not Detected 07/15/17 07/15/17 07/15/17 12:30 12:30 12:30 WBC 9.0 RBC 2.83 L Hgb 7.9 L Hct 26.6 L MCV 94.0 MCH 27.9 L MCHC 29.7 L RDW 16.2 H Plt Count 343 MPV 9.7 Immature Gran % Seg Neutrophils % Lymphocytes % Monocytes % Eosinophils % Basophils % Neutrophils # Lymphocytes # Monocytes # Eosinophils # Basophils # PT INR ABG pH ABG pCO2 ABG pO2 ABG HCO3 ABG Total CO2 ABG O2 Saturation ABG Base Excess Blood Gas Modality Sodium 137 Potassium 3.4 L Chloride 103 Carbon Dioxide 29 BUN 13 Creatinine 0.65 Est GFR ( Amer) > 60 Est GFR (Non-Af Amer) > 60 BUN/Creatinine Ratio 20 Glucose 256 H POC Glucose Calculated Osmolality 293 Calcium 8.0 L Total Bilirubin AST ALT Alkaline Phosphatase Ammonia Serum Total Protein Albumin Globulin Albumin/Globulin Ratio Urine Color Urine Clarity Urine pH Ur Specific [place] Urine Protein Urine Glucose (UA) Urine Ketones Urine Blood Urine Nitrite Urine Bilirubin Urine Urobilinogen Ur Leukocyte Esterase Urine Microscopic RBC Urine Microscopic WBC Ur Squamous Epith Cells Urine Bacteria Hyaline Casts Urine Yeast Ur Culture Indicated? Vancomycin Trough 17.6 A. baumannii (PCR) Adelina albicans (PCR) C. glabrata (PCR) C. krusei (PCR) C. parapsilosis (PCR) C. tropicalis (PCR) Enterobacteriac sp PCR E. cloacae complex PCR Enterococcus sp PCR E. coli (PCR) H. influenzae (PCR) Klebsiella oxytoca PCR Klebsiella pneumoniae List. monocytogenes PCR N. meningitidis (PCR) Proteus species (PCR) Serratia marcescens PCR Staphylococcus sp PCR Staph aureus (PCR) mecA-Methicil Res Gene Streptococcus sp PCR Group A Strep DNA Group B Strep (PCR) Strep pneumoniae (PCR) P. aeruginosa (PCR) Alexa/B-Vanco Res Genes KPC (blaKPC) Detect PCR 07/15/17 07/15/17 07/15/17 12:30 12:42 13:20 WBC RBC Hgb Hct MCV MCH MCHC RDW Plt Count MPV Immature Gran % Seg Neutrophils % Lymphocytes % Monocytes % Eosinophils % Basophils % Neutrophils # Lymphocytes # Monocytes # Eosinophils # Basophils # PT INR ABG pH ABG pCO2 ABG pO2 ABG HCO3 ABG Total CO2 ABG O2 Saturation ABG Base Excess Blood Gas Modality Sodium Potassium Chloride Carbon Dioxide BUN Creatinine Est GFR ( Amer) Est GFR (Non-Af Amer) BUN/Creatinine Ratio Glucose POC Glucose 258 H Calculated Osmolality Calcium Total Bilirubin AST ALT Alkaline Phosphatase Ammonia 19 Serum Total Protein Albumin Globulin Albumin/Globulin Ratio Urine Color Yellow Urine Clarity Clear Urine pH 6.0 Ur Specific [place] 1.011 Urine Protein Negative Urine Glucose (UA) Normal Urine Ketones Negative Urine Blood Trace H Urine Nitrite Negative Urine Bilirubin Negative Urine Urobilinogen Normal Ur Leukocyte Esterase Trace H Urine Microscopic RBC 3-5 H Urine Microscopic WBC 3-5 H Ur Squamous Epith Cells Moderate H Urine Bacteria None Seen Hyaline Casts None Seen Urine Yeast Few H Ur Culture Indicated? YES A Vancomycin Trough A. baumannii (PCR) Adelina albicans (PCR) C. glabrata (PCR) C. krusei (PCR) C. parapsilosis (PCR) C. tropicalis (PCR) Enterobacteriac sp PCR E. cloacae complex PCR Enterococcus sp PCR E. coli (PCR) H. influenzae (PCR) Klebsiella oxytoca PCR Klebsiella pneumoniae List. monocytogenes PCR N. meningitidis (PCR) Proteus species (PCR) Serratia marcescens PCR Staphylococcus sp PCR Staph aureus (PCR) mecA-Methicil Res Gene Streptococcus sp PCR Group A Strep DNA Group B Strep (PCR) Strep pneumoniae (PCR) P. aeruginosa (PCR) Alexa/B-Vanco Res Genes KPC (blaKPC) Detect PCR 07/15/17 07/16/17 07/16/17 19:10 04:31 04:31 WBC 7.5 RBC 2.65 L Hgb 7.5 L Hct 24.3 L MCV 91.7 MCH 28.3 MCHC 30.9 L RDW 16.2 H Plt Count 312 MPV 9.3 L Immature Gran % 0.9 Seg Neutrophils % 76.4 Lymphocytes % 13.4 Monocytes % 7.5 Eosinophils % 1.5 Basophils % 0.3 Neutrophils # 5.7 Lymphocytes # 1.0 Monocytes # 0.6 Eosinophils # 0.1 Basophils # 0.0 PT 52.0 H* INR 4.7 H* ABG pH 7.44 ABG pCO2 48 H ABG pO2 73 L ABG HCO3 33 H ABG Total CO2 34 H ABG O2 Saturation 95 ABG Base Excess 7 H Blood Gas Modality NC Sodium Potassium Chloride Carbon Dioxide BUN Creatinine Est GFR ( Amer) Est GFR (Non-Af Amer) BUN/Creatinine Ratio Glucose POC Glucose Calculated Osmolality Calcium Total Bilirubin AST ALT Alkaline Phosphatase Ammonia Serum Total Protein Albumin Globulin Albumin/Globulin Ratio Urine Color Urine Clarity Urine pH Ur Specific [place] Urine Protein Urine Glucose (UA) Urine Ketones Urine Blood Urine Nitrite Urine Bilirubin Urine Urobilinogen Ur Leukocyte Esterase Urine Microscopic RBC Urine Microscopic WBC Ur Squamous Epith Cells Urine Bacteria Hyaline Casts Urine Yeast Ur Culture Indicated? Vancomycin Trough A. baumannii (PCR) Adelina albicans (PCR) C. glabrata (PCR) C. krusei (PCR) C. parapsilosis (PCR) C. tropicalis (PCR) Enterobacteriac sp PCR E. cloacae complex PCR Enterococcus sp PCR E. coli (PCR) H. influenzae (PCR) Klebsiella oxytoca PCR Klebsiella pneumoniae List. monocytogenes PCR N. meningitidis (PCR) Proteus species (PCR) Serratia marcescens PCR Staphylococcus sp PCR Staph aureus (PCR) mecA-Methicil Res Gene Streptococcus sp PCR Group A Strep DNA Group B Strep (PCR) Strep pneumoniae (PCR) P. aeruginosa (PCR) Alexa/B-Vanco Res Genes KPC (blaKPC) Detect PCR 07/16/17 04:31 WBC RBC Hgb Hct MCV MCH MCHC RDW Plt Count MPV Immature Gran % Seg Neutrophils % Lymphocytes % Monocytes % Eosinophils % Basophils % Neutrophils # Lymphocytes # Monocytes # Eosinophils # Basophils # PT INR ABG pH ABG pCO2 ABG pO2 ABG HCO3 ABG Total CO2 ABG O2 Saturation ABG Base Excess Blood Gas Modality Sodium 138 Potassium 3.0 L Chloride 103 Carbon Dioxide 30 H BUN 11 Creatinine 0.64 Est GFR ( Amer) > 60 Est GFR (Non-Af Amer) > 60 BUN/Creatinine Ratio 17 Glucose 157 H POC Glucose Calculated Osmolality 289 Calcium 7.7 L Total Bilirubin 0.5 AST 8 L ALT 8 Alkaline Phosphatase 32 L Ammonia Serum Total Protein 5.7 L Albumin 2.0 L Globulin 3.7 H Albumin/Globulin Ratio 0.5 L Urine Color Urine Clarity Urine pH Ur Specific [place] Urine Protein Urine Glucose (UA) Urine Ketones Urine Blood Urine Nitrite Urine Bilirubin Urine Urobilinogen Ur Leukocyte Esterase Urine Microscopic RBC Urine Microscopic WBC Ur Squamous Epith Cells Urine Bacteria Hyaline Casts Urine Yeast Ur Culture Indicated? Vancomycin Trough A. baumannii (PCR) Adelina albicans (PCR) C. glabrata (PCR) C. krusei (PCR) C. parapsilosis (PCR) C. tropicalis (PCR) Enterobacteriac sp PCR E. cloacae complex PCR Enterococcus sp PCR E. coli (PCR) H. influenzae (PCR) Klebsiella oxytoca PCR Klebsiella pneumoniae List. monocytogenes PCR N. meningitidis (PCR) Proteus species (PCR) Serratia marcescens PCR Staphylococcus sp PCR Staph aureus (PCR) mecA-Methicil Res Gene Streptococcus sp PCR Group A Strep DNA Group B Strep (PCR) Strep pneumoniae (PCR) P. aeruginosa (PCR) Alexa/B-Vanco Res Genes KPC (blaKPC) Detect PCR Cultures: Cultures 07/14/17 17:59 Blood Culture - Preliminary Peripheral Venipuncture No growth. 07/14/17 07:56 Blood Culture - Preliminary Peripheral Venipuncture Gram Positive Cocci 07/15/17 11:27 Gram Stain - Final Left Hip 07/12/17 03:55 Blood Culture - Final Peripheral Venipuncture Methicillin Resistant S.aureus 07/10/17 14:13 Blood Culture - Final Peripheral Venipuncture Methicillin Resistant S.aureus 07/09/17 14:15 Blood Culture - Final Peripheral Venipuncture Methicillin Resistant S.aureus 07/09/17 14:15 Blood Culture - Final Peripheral Venipuncture Methicillin Resistant S.aureus 07/08/17 00:55 Blood Culture - Final Peripheral Venipuncture Methicillin Resistant S.aureus 07/08/17 00:55 Blood Culture - Final Peripheral Venipuncture Methicillin Resistant S.aureus 07/08/17 08:10 Legionella Antigen - Final Urine,Clean Catch 07/08/17 08:10 Streptococcus pneumoniae Antigen (M - Final Urine,Clean Catch Serology 07/15/17 07/14/17 07/09/17 Range/Units 13:20 07:56 14:15 Urine Color Yellow (Yellow) Urine Clarity Clear (Clear) Urine pH 6.0 (5.0-8.0) pH Units Ur Specific [place] 1.011 (1.010-1.025) Urine Protein Negative (Neg-Trace) mg/dL Urine Glucose (UA) Normal (Normal) mg/dL Urine Ketones Negative (Negative) mg/dL Urine Blood Trace H (Negative) Urine Nitrite Negative (Negative) Urine Bilirubin Negative (Negative) Urine Urobilinogen Normal (Normal) mg/dL Ur Leukocyte Esterase Trace H (Negative) Urine Microscopic RBC 3-5 H (0-3) per hpf Urine Microscopic WBC 3-5 H (0-3) per hpf Ur Squamous Epith Cells Moderate H (None-Few) per lpf Urine Bacteria None Seen (None-Few) per hpf Hyaline Casts None Seen (None-Few) per lpf Urine Yeast Few H (None Seen) per hpf Ur Culture Indicated? YES A (NO) A. baumannii (PCR) Not Detected Not Detected (Not Detect) Adelina albicans (PCR) Not Detected Not Detected (Not Detect) C. glabrata (PCR) Not Detected Not Detected (Not Detect) C. krusei (PCR) Not Detected Not Detected (Not Detect) C. parapsilosis (PCR) Not Detected Not Detected (Not Detect) C. tropicalis (PCR) Not Detected Not Detected (Not Detect) Enterobacteriac sp PCR Not Detected Not Detected (Not Detect) E. cloacae complex PCR Not Detected Not Detected (Not Detect) Enterococcus sp PCR Not Detected Not Detected (Not Detect) E. coli (PCR) Not Detected Not Detected (Not Detect) H. influenzae (PCR) Not Detected Not Detected (Not Detect) Klebsiella oxytoca PCR Not Detected Not Detected (Not Detect) Klebsiella pneumoniae Not Detected Not Detected (Not Detect) List. monocytogenes PCR Not Detected Not Detected (Not Detect) N. meningitidis (PCR) Not Detected Not Detected (Not Detect) Proteus species (PCR) Not Detected Not Detected (Not Detect) Serratia marcescens PCR Not Detected Not Detected (Not Detect) Staphylococcus sp PCR DETECTED A DETECTED A (Not Detect) Staph aureus (PCR) DETECTED A DETECTED A (Not Detect) mecA-Methicil Res Gene DETECTED A DETECTED A (Not Detect) Streptococcus sp PCR Not Detected Not Detected (Not Detect) Group A Strep DNA Not Detected Not Detected (Not Detect) Group B Strep (PCR) Not Detected Not Detected (Not Detect) Strep pneumoniae (PCR) Not Detected Not Detected (Not Detect) P. aeruginosa (PCR) Not Detected Not Detected (Not Detect) Alexa/B-Vanco Res Genes Not Detected Not Detected (Not Detect) KPC (blaKPC) Detect PCR Not Detected Not Detected (Not Detect) 07/09/17 07/08/17 07/08/17 Range/Units 14:15 08:10 00:55 Urine Color Dark Yellow (Yellow) Urine Clarity Cloudy A (Clear) Urine pH 6.0 (5.0-8.0) pH Units Ur Specific [place] > 1.030 H (1.010-1.025) Urine Protein 100 H (Neg-Trace) mg/dL Urine Glucose (UA) Normal (Normal) mg/dL Urine Ketones Negative (Negative) mg/dL Urine Blood Trace H (Negative) Urine Nitrite Negative (Negative) Urine Bilirubin Small H (Negative) Urine Urobilinogen Normal (Normal) mg/dL Ur Leukocyte Esterase Negative (Negative) Urine Microscopic RBC 5-15 H (0-3) per hpf Urine Microscopic WBC 30-50 H (0-3) per hpf Ur Squamous Epith Cells Moderate H (None-Few) per lpf Urine Bacteria Few (None-Few) per hpf Hyaline Casts Few (None-Few) per lpf Urine Yeast Moderate H (None Seen) per hpf Ur Culture Indicated? NO (NO) A. baumannii (PCR) Not Detected Not Detected (Not Detect) Adelina albicans (PCR) Not Detected Not Detected (Not Detect) C. glabrata (PCR) Not Detected Not Detected (Not Detect) C. krusei (PCR) Not Detected Not Detected (Not Detect) C. parapsilosis (PCR) Not Detected Not Detected (Not Detect) C. tropicalis (PCR) Not Detected Not Detected (Not Detect) Enterobacteriac sp PCR Not Detected Not Detected (Not Detect) E. cloacae complex PCR Not Detected Not Detected (Not Detect) Enterococcus sp PCR Not Detected Not Detected (Not Detect) E. coli (PCR) Not Detected Not Detected (Not Detect) H. influenzae (PCR) Not Detected Not Detected (Not Detect) Klebsiella oxytoca PCR Not Detected Not Detected (Not Detect) Klebsiella pneumoniae Not Detected Not Detected (Not Detect) List. monocytogenes PCR Not Detected Not Detected (Not Detect) N. meningitidis (PCR) Not Detected Not Detected (Not Detect) Proteus species (PCR) Not Detected Not Detected (Not Detect) Serratia marcescens PCR Not Detected Not Detected (Not Detect) Staphylococcus sp PCR DETECTED A DETECTED A (Not Detect) Staph aureus (PCR) DETECTED A DETECTED A (Not Detect) mecA-Methicil Res Gene DETECTED A DETECTED A (Not Detect) Streptococcus sp PCR Not Detected Not Detected (Not Detect) Group A Strep DNA Not Detected Not Detected (Not Detect) Group B Strep (PCR) Not Detected Not Detected (Not Detect) Strep pneumoniae (PCR) Not Detected Not Detected (Not Detect) P. aeruginosa (PCR) Not Detected Not Detected (Not Detect) Alexa/B-Vanco Res Genes N/A Not Detected (Not Detect) KPC (blaKPC) Detect PCR N/A Not Detected (Not Detect) Exam - Constitutional Vitals: Temp Pulse Resp BP Pulse Ox 99.9 F H 75 16 137/65 96 07/16/17 11:50 07/16/17 11:50 07/16/17 11:50 07/16/17 11:50 07/16/17 11:50 General appearance: mild distress, obese, no cooperative - Head Head exam: Present: atraumatic, normal inspection, normocephalic - Eye Eye exam: Present: EOMI, normal appearance, PERRL Pupils: Present: normal accommodation Additional comments: No subconjunctival hemorrhage noted. - ENT ENT exam: Present: mucous membranes dry - Neck Neck exam: Present: normal inspection - Respiratory Respiratory exam: Present: CTAB. Absent: rales, respiratory distress, rhonchi, wheezes - Cardiovascular Cardiovascular exam: Present: RRR, +S1, +S2 - GI/Abdominal GI/Abdominal exam: Present: distended (obese), normal bowel sounds, soft, tenderness Additional comments: Crain catheter noted to be draining clear yellow urine. - Extremities Exam Extremities exam: Present: pedal edema (1+ BLE), tenderness (BLE). Absent: joint swelling Additional comments: Chronic deformity of the RLE noted. Patient yells out in pain when turned, but unable to localize. - Back Exam Back exam: Present: normal inspection. Absent: paraspinal tenderness, vertebral tenderness Additional comments: Stage II ulcer noted to the left buttock with Allevyn dressing intact. No erythema, warmth, or drainage noted. Wound bed 100% granulation tissue. Wound measures ~ 0.5cm x 0.5cm. Deep tissue injury noted to the right buttock, just lateral to the intergluteal cleft. Non-blanchable, but not open. - Neurological Exam Neurological exam: Present: alert. Absent: oriented X3, no focal deficits ( Decreased ROM to the RUE and RLE), facial droop - Psychiatric Psychiatric exam: Present: agitated, anxious - Skin Skin exam: Present: dry, intact, normal color, warm Additional comments: No endocarditis stigmata noted. Consult Discharge Plan - Plan Referrals: Barbra Juarez MD [Primary Care Provider] - Prince Wolf MD [Family Provider] - - Attending Attestation I examined this patient and my medical decision-making was reviewed with the Resident Physician. I agree with the documented findings, disposition and treatment plan as described except to the extent set forth below. At this point, I'm not sure whether patient continues to be bacteremic. While technically she has been bacteremic for 3 days after the vancomycin trough has been therapeutic. We'll repeat cultures today and in 48 hours to see if that resolves. On physical exam and imaging and workup she has no focus or nidus of infection. Her GILBERTO was negative for endocarditis. The joint was tapped by or so and the Gram stain so far is negative. Cultures are pending. Patient also has no other Burleson criteria. Patient's mentation is much worse. I'm not sure if this is due to the lacunar infarcts versus metabolic encephalopathy versus seizure versus aspiration versus intracranial bleed because her INR is supratherapeutic versus other. I will page neurology and discussed the case with them and hopefully they can reevaluate. At this point continue vancomycin and repeat cultures and repeat Vanco trough will discuss with pharmacy staff. We also checked the MICU on the MRSA and it was 1. So I'll not sure if the patient is failing vancomycin treatment. If she continues to be bacteremic for the next 48-72 hours, I will consider switching her to daptomycin.
[2017-07-16] MEDS ORDERED: Bisacodyl 10 MG RECTAL SUPPOSITORY RC PRN (14:57)
--- NOTE | 2017-07-16 15:02 | Palliative - Consult Note ---
Date of Encounter: 07/16/17 Time of Encounter: 15:00 - Assessment and Plan (1) Altered mental status Current Visit: Yes Status: Acute Assessment and plan: Continues - pt currently going for CT head. Neurology has been re-called to see today. Qualifiers: Altered mental status type: unspecified Qualified Code(s): R41.82 - Altered mental status, unspecified (2) Counseling regarding advanced care planning and goals of care Current Visit: Yes Status: Acute Assessment and plan: Met with pt sonMatt ([id number]) (POA) and daughter Inge Main ( [id number]). They report pt was independent and living alone until end of March - she became ill and has had declining health since. After last admission here - pt went to [facility] for rehab, and was discharged home afterwards. Family reports she refused home health services. Daughter states she did well for approx 10 days, then leg pain began which led to this admission. Discussed goals of care and code status - they do not think their mother would want resuscitated and this point, and she had expressed to them in the past she did not want placed on a ventilator. They are aware she is not eating well, and state that she would not want a feeding tube - in fact, stated she would likely pull out soon after insertion. They are still hopeful for some clarification of infection source, and understand that she has brain infarcts and that she may not do well. Discussed that we would assist with planning, whether that be rehab, hh, or transition to comfort care and hospice, if she further declines and they would decide to go that direction. Will f/u in am. (3) MRSA (methicillin resistant Staphylococcus aureus) infection Current Visit: Yes Status: Acute Assessment and plan: ID following - continues with IV antibiotics. Source of infection still unknown Palliative-CN HPI - Data of Consult Consult date: 07/16/17 Requesting Physician: Jc Thompson DO Primary Care Provider: Barbra Juarez MD Family Provider: Prince Hernandez - Consult Narrative History of present illness: Ms. eNw is a 77 year old female with medical hx of arthritis, CHF, and COPD who presented to the ED with chief complaint of severe pain and swelling in her right hip with pain radiating down right leg that began on . Pts. daughter reports that pt. was able to ambulate to PCP appt. on Friday w/ walker to and from car w/o problem. Pt. and daughter deny falls, trauma, or strain. She was admitted for evaluation. She was found to have MRSA septicemia with + blood cultures, however, despite multiple testing, source is still unclear. GILBERTO negative, and joint aspiration performed yesterday so far negative as well. Daughter and son at bedside providing information as she has altered mental status. Changed in mentation started on Sat-Sun, and MRI Friday showed multiple small infarcts. Neurology has been consulted. ID is following as well. INR 4.7 today. Coumadin being managed by pharmacy. Upon my visit, she is disoriented and does not follow commands. She is moaning and appears very uncomfortable. Appears pale and weak. Palliative care was consulted to assist with goals of care discussion and symptom management. CC: Jc Thompson, DO Past Med Surg Social Fam HX - Past Medical History Medical history: arthritis, atrial fibrillation, CHF, COPD, coronary artery disease, GERD, hyperlipidemia, hypertension, myocardial infarction Psychiatric history: no psych history - Past Surgical History Surgical History: other - Social History Smoking Status: Never smoker Smokeless Tobacco Status: No Alcohol use: none Drug use: none - Family History Mother Age: 25 Living Status: Age at : 28 Cause of : ME Hx Family Cardiac Disorders: Yes Hx Family Respiratory Disorders: No Hx Family Cancer: No Hx Family GI Disorders: No Hx Family Genitourinary Disorders: No Hx Family Endocrine Disorder: No Hx Family Musculoskeletal Disorders: No Hx Family Neuromuscular Disorders: No Hx Family Neurologic Disorders: No Hx Family HEENT Disorders: No Father Race: Family Member Ethnicity: Non- Living Status: Age at : 58 Cause of : [place] Hx Family Cardiac Disorders: Yes (ME) Brother Race: Family Member Ethnicity: Non- Living Status: Age at : 76 Cause of : Lung cancer Hx Family Cancer: Yes (Lung) Medications and Allergies Albuterol Sulfate [Albuterol Inhaler] 2 puff IH Q6H PRN 05/27/17 [History] Budesonide/Formoterol 80/4.5 [Symbicort 80/4.5] 2 puff IH BID 05/27/17 [History ] Amiodarone [Cordarone] 200 mg PO DAILY tablet 06/06/17 [Rx] Aspirin Enteric Coated [Aspirin EC] 81 mg PO Q48H #0 tablet. 06/20/17 [Rx] Digoxin [Lanoxin] 0.25 mg PO DAILY #30 tablet 06/20/17 [Rx] Furosemide [Lasix] 20 mg PO DAILY #0 tablet 06/20/17 [Rx] Isosorbide MONOnitrate (24 HR) [Imdur] 60 mg PO DAILY #30 tab.er.24h 06/20/17 [ Rx] Lisinopril [Zestril] 5 mg PO DAILY #30 tablet 06/20/17 [Rx] Ranitidine HCl [Heartburn Relief] 150 mg PO BID PRN #0 06/20/17 [Rx] Warfarin [Coumadin] 1.5 mg PO QPM 07/06/17 [History] 3 Allergy/AdvReac Type Severity Reaction Status Date / Time No Known Allergies Allergy Verified 07/05/17 13:12 ROS unobtainable: due to mental status Palliative Care-Exam - Constitutional Vitals: Temp Pulse Resp BP Pulse Ox 99.9 F H 75 16 137/65 96 07/16/17 11:50 07/16/17 11:50 07/16/17 11:50 07/16/17 11:50 07/16/17 11:50 General appearance: Present: mild distress. Absent: cooperative - Head Head Exam: Present: normal inspection, normocephalic - Respiratory Respiratory exam: Present: decreased breath sounds, CTAB Additional comments: Shallow inspiratory effort. - Cardiovascular Cardiovascular exam: Present: +S1, +S2 - GI/Abdominal Exam GI/Abdominal exam: Present: normal bowel sounds, soft - Extremities Exam Extremities exam: Present: normal capillary refill, normal inspection - Neurological Exam Neurological exam: Present: alert Additional comments: Patient nonverbal, does not follow commands. Remains with eyes closed, moaning at intervals. - Skin Skin exam: Present: dry, pallor, warm Internal Medicine - CN: Reslt - Labs CBC & Chem 7: 07/16/17 04:31 07/16/17 04:31 Labs: Short CBC 07/16/17 Range/Units 04:31 WBC 7.5 (4.3-11.1) K/mcL Hgb 7.5 L (11.5-15.4) g/dL Hct 24.3 L (35.3-44.9) % Plt Count 312 (140-400) K/mcL Neutrophils # 5.7 (1.6-8.9) K/mcL BMP 07/16/17 04:31 Sodium 138 Potassium 3.0 L Chloride 103 Carbon Dioxide 30 H BUN 11 Creatinine 0.64 Glucose 157 H Calcium 7.7 L Liver Function 07/16/17 Range/Units 04:31 Total Bilirubin 0.5 (0.3-1.0) mg/dL AST 8 L (13-39) Units/L ALT 8 (7-52) Units/L Alkaline Phosphatase 32 L (34-104) Units/L Albumin 2.0 L (3.5-5.7) g/dL - ABG Interpretation ABG results: ABG ABG pH 7.44 pH Units (7.32-7.45) 07/15/17 19:10 ABG pCO2 48 mmHg (35-45) H 07/15/17 19:10 ABG pO2 73 mmHg (85-104) L 07/15/17 19:10 ABG O2 Saturation 95 % (95-98) 07/15/17 19:10 PT/INR, D-dimer PT 52.0 Seconds (9.4-12.1) H* 07/16/17 04:31 - Impressions Impressions Chest X-Ray 07/16/17 12:12 IMPRESSION: Increasing moderate left pleural effusion with increasing airspace opacity in the left lung. There is increasing subtle opacity in the mid to lower right lung as well which may reflect a layering pleural effusion. D/ / 07/16/2017 13:02:53 Allison Ojeda MD / ronak Interpreting Provider: Allison Ojeda MD Consult Discharge Plan - Plan Referrals: Barbra Juarez MD [Primary Care Provider] - Prince Wolf MD [Family Provider] - Palliative Quality Palliative Quality: Screen for Code Status: Yes, Screen for Goals of Care: Yes, Screen for Pain: Yes, If Pain Regimen Started, Initiate Bowel Regimen: Yes, Screen for Nausea/Vomitting: Yes Code Status: 07/16/17 14:43 DNR [Resuscitation Status: Active] [RES] Routine Comment: Resuscitation Status: [id number]
[2017-07-16] MEDS ORDERED: *HR* Phytonadione 5 MG TABLET PO ONE (15:04)
[2017-07-16] MEDS ORDERED: Haloperidol Lactate 5 MG/ML VIAL IVP ONE (16:11)
[2017-07-16] MEDS: Vancomycin 1,500 MG in D5% in Water 250 ML IVPB SCH (16:27)
--- NOTE | 2017-07-16 16:32 | Internal Med Progress Note ---
<Jimmy Ryan - Last Filed: 07/16/17 16:27> Date of Encounter: 07/16/17 Time of Encounter: 11:00 - Assessment and plan (1) MRSA bacteremia Current Visit: Yes Status: Acute Assessment and plan: - Persistent MRSA bacteremia. -Positive blood cultures on 07/09, 07/10, 07/12 for MRSA - PReliminary cultures drawn 07/14 show 1/2 growing MRSA - Has been on vancomycin with goal trough of 15, day 8 - No obvious source identified. - Urine culture mixed and inconclusive, CXR show bilateral consolidation suspicious of PNA, mass/likely lipoma of right medial thigh on MRI - Sacral decubitus ulcers being evaluated and changed per wound care - TTE and GILBERTO negative for vegetations for possible endocarditis. Recommend repeat GILBERTO in 7-10days if symptoms persist. - ID consulted, appreciate recommendations. - Non septic with temp 97.8, HR 78, RR14, WBC of 7.5 - Altered mental status may be secondary to infection vs hypercapnia vs hypoxia vs recent lacunar infarction - Ortho performed right hip bursitis aspiration yesterday, Gram stain pending Plan - Continue vancomycin and await final results of blood cultures - Per infectious disease, draw repeat blood cultures today and if growth after 2 days may switch to daptomycin - We will add Zosyn coverage for possible aspiration pneumonia - Palliative consult today - Daily labs - ID consult - Contact precautions. - Possible biopsy of leg mass vs abdominal CT vs thoracentesis and pleural sampling if infection continues without known source. (2) Acute cerebral infarction Current Visit: Yes Status: Acute Assessment and plan: - Acute right thalamic lacunar infarct as seen on brain MRI on 07/08/17 for right leg weakness - Scattered bilateral small infarcts suggestive of emboli of cardiac or septic etiology. - Neurology following appreciate recommendations. - Left carotid stenosis of 60-79%. - Per daughter, pt is not at baseline mental status. May also be attributable to infection vs metabolic etiologies. Plan - Continue statin, aspirin - Pt/OT when able. - Infectious disease recommended reconsult neurology for etiology of altered mental status with possible continued infarction. Commended repeat MRI scheduled for this evening - Management of AMS and determine if alternative etiologies are contributing - Not a candidate for aggressive measures at this time due to other medical conditions and severity of other acute conditions. (3) Supratherapeutic INR Current Visit: Yes Status: Acute Assessment and plan: - INR of 8.7 on admission. - Most recently 4.7 this AM Plan - Holding coumadin. Pharmacy to dose. - Give 5 vitamin K today due to possibility of necessary lumbar puncture - Continue to monitor for signs of bleed. (4) Stage II pressure ulcer of buttock Current Visit: Yes Status: Acute Assessment and plan: per nursing. consult wound care. - Unlikely source of bacteremia. Qualifiers: Laterality: left Qualified Code(s): L89.322 - Pressure ulcer of left buttock, stage 2 (5) Altered mental status Current Visit: Yes Status: Acute Assessment and plan: - Etiology unclear at this time, likely multifactorial - Pain from femoral nerve compression vs acute cerebral infarct vs infectious - Alternatively respiratory status may be playing a role. Plan - Treat underlying infection. Currently on Zosyn and vancomycin - ABG unremarkable - Pain control - Ammonia level normal - Consult neurology. - Possible new baseline, consulted palliative care Qualifiers: Altered mental status type: unspecified Qualified Code(s): R41.82 - Altered mental status, unspecified (6) Lipoma Current Visit: Yes Status: Acute Assessment and plan: - MRI of the right femur showed a large 21.3 x 9.8 x 7.7 cm fat signal mass. Not exactly sure this is the cause of her issues. - Surgery consulted, no intervention for now per surgery service due to her other more acute medical issues. Plan - Unlikely surgical candidate - Due to nature of lipoma and size would likely have to remove entire lesion if this turns out to be the source of infection - MRI shows dense lesion which appears lobular. - Will monitor for now Qualifiers: Lipoma location: lower extremity Laterality: right Qualified Code(s): D17.23 - Benign lipomatous neoplasm of skin and subcutaneous tissue of right leg (7) Lumbar spinal stenosis Current Visit: Yes Status: Chronic Assessment and plan: Per CT scans. Has been seen by neurology. - No acute interventions while inpatient. - Pain control Qualifiers: Neurogenic claudication status: unspecified Qualified Code(s): M48.061 - Spinal stenosis, lumbar region without neurogenic claudication (8) Chronic kidney disease (CKD) stage G3a/A3, moderately decreased glomerular filtration rate (GFR) between 45-59 mL/min/1.73 square meter and albuminuria creatinine ratio greater than 300 mg/g Current Visit: Yes Status: Acute Assessment and plan: - Stage III per chart review. - BUN/Cr of 11/0.64this AM - Appears to be at baseline Plan - Monitor for fluid status - Avoid nephrotoxic agents - Continue vancomycin as benefit outweighs risk. Monitor and renally dose per pharmacy with goal trough of 15. (9) Anemia Current Visit: Yes Status: Acute Assessment and plan: - H/H of 7.5/24.3 this AM. Hgb of 7.9 yesterday - Likely a result of chronic disease, CKD III. Baseline 8-9 - Received 2 units during this admisssion - Unable to determine if symptomatic but has remained stable for past couple days Plan - Continue to monitor daily CBC - Transfuse as necessary Qualifiers: Anemia type: unspecified type Qualified Code(s): D64.9 - Anemia, unspecified (10) HCAP (healthcare-associated pneumonia) Current Visit: Yes Status: Acute Assessment and plan: - Concern for HCAP on CXR showing bilateral opacities - Aspiration coverage due to AMS - Afebrile at this time, no WBC. - Sputum cultures negative. Blood cultures as above. Strep and legionella negative. Plan - Continue vancomycin day 8 and change cefepime to Zosyn - Received 7 days of cefepime - Tylenol PRN fever. (11) Hypokalemia Current Visit: Yes Status: Acute Assessment and plan: Potassium of 3.0 this morning, 3.4 yesterday -Give 40 mEq today and restart fluids at 75 mL per hour with 10 mEq of potassium (12) DVT prophylaxis Current Visit: Yes Status: Acute Assessment and plan: Coumadin. Hold that for now as INR is supratherapeutic. - Time Spent With Patient 25 - 35 minutes - Subjective Interval history: Patient was seen and examined at bedside this morning. Pt is agitated, complaining of pain, with difficult to interpret language. Daughter, who is present at bedside, states that this has been common since her stroke on Friday, especially when she is in pain. No new complaints or questions today - Constitutional Vitals: Temp Pulse Resp BP Pulse Ox 99.7 F H 84 16 124/107 97 07/16/17 15:48 07/16/17 15:48 07/16/17 15:48 07/16/17 15:48 07/16/17 15:48 General appearance: Present: cooperative, mild distress, pleasant, obese, answers questions appropriately Exam: Gen.: Vitals noted. No acute distress. AAOx0. Moaning, difficult to understand. HEENT: PERRL/EOMI, oropharynx clear, Normocephalic, atraumatic Cardiac: RRR, no murmur, +S1/S2 Pulmonary: Decreased breath sounds bilaterally, no wheezes, rales or rhonchi, equal chest expansion Abdomen: soft, nontender, BS noted, no guarding MSK: ROM intact, no joint swelling noted Extremities: no BLE edema, nontender calf, no cyanosis or clubbing Neuro: A&Ox0, moves all extremities, no focal deficits appreciated however is difficult to understand and interpret due to mental status Skin: Sacral decubitus ulcers bilaterally per nursing report Internal Medicine: Result - Labs CBC & Chem 7: 07/16/17 04:31 07/16/17 04:31 Labs: Short CBC 07/16/17 Range/Units 04:31 WBC 7.5 (4.3-11.1) K/mcL Hgb 7.5 L (11.5-15.4) g/dL Hct 24.3 L (35.3-44.9) % Plt Count 312 (140-400) K/mcL Neutrophils # 5.7 (1.6-8.9) K/mcL BMP 07/16/17 04:31 Sodium 138 Potassium 3.0 L Chloride 103 Carbon Dioxide 30 H BUN 11 Creatinine 0.64 Glucose 157 H Calcium 7.7 L Liver Function 07/16/17 Range/Units 04:31 Total Bilirubin 0.5 (0.3-1.0) mg/dL AST 8 L (13-39) Units/L ALT 8 (7-52) Units/L Alkaline Phosphatase 32 L (34-104) Units/L Albumin 2.0 L (3.5-5.7) g/dL - ABG Interpretation ABG results: ABG ABG pH 7.44 pH Units (7.32-7.45) 07/15/17 19:10 ABG pCO2 48 mmHg (35-45) H 07/15/17 19:10 ABG pO2 73 mmHg (85-104) L 07/15/17 19:10 ABG O2 Saturation 95 % (95-98) 07/15/17 19:10 PT/INR, D-dimer PT 52.0 Seconds (9.4-12.1) H* 07/16/17 04:31 - Impressions Impressions Chest X-Ray 07/16/17 12:12 IMPRESSION: Increasing moderate left pleural effusion with increasing airspace opacity in the left lung. There is increasing subtle opacity in the mid to lower right lung as well which may reflect a layering pleural effusion. D/ / 07/16/2017 13:02:53 Allison Ojeda MD / ronak Interpreting Provider: Allison Ojeda MD Head CT 07/16/17 13:54 IMPRESSION: No acute brain abnormality with stable low-density white matter, likely from chronic small vessel disease. Increased mastoid and bilateral middle ear opacification. This could represent otitis media and/or developing mastoiditis. Slight increased sphenoid sinus disease. D/ / Jean Damico MD / Jean Damico MD Interpreting Provider: Jean Damico MD Consult Discharge Plan - Plan Referrals: Barbra Juarez MD [Primary Care Provider] - Prince Wolf MD [Family Provider] - <Jc Thompson A - Last Filed: 07/16/17 18:00> Date of Encounter: 07/16/17 - Assessment and plan (1) Acute metabolic encephalopathy Current Visit: Yes Status: Acute (2) MRSA (methicillin resistant Staphylococcus aureus) infection Current Visit: Yes Status: Acute (3) MRSA bacteremia Current Visit: Yes Status: Acute (4) Cerebrovascular accident (CVA) due to bilateral embolism of anterior cerebral arteries Current Visit: Yes Status: Acute (5) Chronic kidney disease (CKD) stage G3a/A3, moderately decreased glomerular filtration rate (GFR) between 45-59 mL/min/1.73 square meter and albuminuria creatinine ratio greater than 300 mg/g Current Visit: Yes Status: Acute (6) CHF (congestive heart failure) Current Visit: Yes Status: Chronic Qualifiers: Congestive heart failure type: systolic Congestive heart failure chronicity : chronic Qualified Code(s): I50.22 - Chronic systolic (congestive) heart failure (7) Right hip pain Current Visit: Yes Status: Acute (8) COPD (chronic obstructive pulmonary disease) Current Visit: Yes Status: Chronic Qualifiers: COPD type: unspecified COPD Qualified Code(s): J44.9 - Chronic obstructive pulmonary disease, unspecified (9) Afib Current Visit: No Status: Chronic Qualifiers: Atrial fibrillation type: paroxysmal Qualified Code(s): I48.0 - Paroxysmal atrial fibrillation (10) CAD (coronary artery disease) Current Visit: No Status: Chronic Qualifiers: Coronary Disease-Associated Artery/Lesion type: minto artery [place] vs. transplanted heart: minto heart Associated angina: without angina Qualified Code(s): I25.10 - Atherosclerotic heart disease of minto coronary artery without angina pectoris - Constitutional Vitals: Temp Pulse Resp BP Pulse Ox 99.7 F H 84 16 124/107 97 07/16/17 15:48 07/16/17 15:48 07/16/17 15:48 07/16/17 15:48 07/16/17 15:48 Internal Medicine: Result - Labs CBC & Chem 7: 07/16/17 04:31 07/16/17 04:31 Labs: Short CBC 07/16/17 Range/Units 04:31 WBC 7.5 (4.3-11.1) K/mcL Hgb 7.5 L (11.5-15.4) g/dL Hct 24.3 L (35.3-44.9) % Plt Count 312 (140-400) K/mcL Neutrophils # 5.7 (1.6-8.9) K/mcL BMP 07/16/17 04:31 Sodium 138 Potassium 3.0 L Chloride 103 Carbon Dioxide 30 H BUN 11 Creatinine 0.64 Glucose 157 H Calcium 7.7 L Liver Function 07/16/17 Range/Units 04:31 Total Bilirubin 0.5 (0.3-1.0) mg/dL AST 8 L (13-39) Units/L ALT 8 (7-52) Units/L Alkaline Phosphatase 32 L (34-104) Units/L Albumin 2.0 L (3.5-5.7) g/dL - ABG Interpretation ABG results: ABG ABG pH 7.44 pH Units (7.32-7.45) 07/15/17 19:10 ABG pCO2 48 mmHg (35-45) H 07/15/17 19:10 ABG pO2 73 mmHg (85-104) L 07/15/17 19:10 ABG O2 Saturation 95 % (95-98) 07/15/17 19:10 PT/INR, D-dimer PT 52.0 Seconds (9.4-12.1) H* 07/16/17 04:31 - Impressions Impressions Chest X-Ray 07/16/17 12:12 IMPRESSION: Increasing moderate left pleural effusion with increasing airspace opacity in the left lung. There is increasing subtle opacity in the mid to lower right lung as well which may reflect a layering pleural effusion. D/ / 07/16/2017 13:02:53 lAlison Ojeda MD / ronak Interpreting Provider: Allison Ojeda MD Head CT 07/16/17 13:54 IMPRESSION: No acute brain abnormality with stable low-density white matter, likely from chronic small vessel disease. Increased mastoid and bilateral middle ear opacification. This could represent otitis media and/or developing mastoiditis. Slight increased sphenoid sinus disease. D/ / Jean Damico MD / Jean Damico MD Interpreting Provider: Jean Damico MD - Attending Attestation I examined this patient and my medical decision-making was reviewed with the Resident Physician on 07/16/17. I agree with the documented findings, disposition and treatment plan as described except to the extent set forth below. Ms New is currently admitted for persistent MRSA bacteremia, CVAs and acute encephalopathy. She remains moderate to high risk due to continued bacteremia and potential for worsening clinical status. Ms New is very restless. She continues to have a lot of pain. No fever noted. Work up negative thus far. Repeat eval by neuro today - repeat MRI ordered. Daughter and son at bedside. Exam Alert. Restless Mucus membranes dry Heart not tachy at this time No wheeze Abd soft I/P 1. Encephalopathy 2. CVAs - repeat MRI today 3. MRSA bacteremia Further diagnoses and plan as above.
[2017-07-16] MEDS: Piperacillin/Tazobactam 3.375 GM/200 ML BAG IVPB SCH ×2 (16:39→23:24)
--- NOTE | 2017-07-16 17:33 | Neurology - Consult Note ---
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 CT of head showed no acute intracranial bleed. Neurologically major concern would embolic stroke, although she is currently being anticoagulated with elevated INR. No evidence of infectious endocarditis on echocardiography. She has no significant nuchal rigidity and ROUTE CLERK infection is considered less likely Will recommend MRI of brain to exclude stroke or infectious etiologies such as intracranial emphyema which may be missed on CT of head. Seizure is considered less likely. Please continue medical and supportive care. Will follow in AM. Qualifiers: Altered mental status type: unspecified Qualified Code(s): R41.82 - Altered mental status, unspecified History of Present Illness Chief complaint: mental status changes HPI: Ms. New is a 77 year old female who is re-consulted due to recurrent mental status change. 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 Patient has been on warfarin anticoagulation therapy and today's INR was 4.1. She has sepsis and positive blood culture and is currently being treated with antibiotics. However, she was noticed by infectious disease specialist to be having mental status. roughly started yesterday the patient has not been compliant and unable to answer questions although she keeps moaning and able to move all extremities except some pain when passively moving her right leg. Son and daughter mentions that the patient was confused and agitated but unable to tell what is bothering her. Neurology was then consulted to assess possible cause, since especially her INR was elevated. I did request CT of head, which was already done at the time of this interview, it was read no acute intracranial abnormality. Especially, there is no intracranial bleed. Patient does not have a white count. She has lower fever. Unable to tell whether she has a headache or not. She has no nuchal rigidity. Past Med Surg Social Fam HX - Past Medical History Medical history: arthritis, atrial fibrillation, CHF, COPD, coronary artery disease, GERD, hyperlipidemia, hypertension, myocardial infarction Psychiatric history: no psych history - Past Surgical History Surgical History: other - Social History Smoking Status: Never smoker Smokeless Tobacco Status: No Alcohol use: none Drug use: none - Family History Mother Age: 25 Living Status: Age at : 28 Cause of : [place] Hx Family Cardiac Disorders: Yes Hx Family Respiratory Disorders: No Hx Family Cancer: No Hx Family GI Disorders: No Hx Family Genitourinary Disorders: No Hx Family Endocrine Disorder: No Hx Family Musculoskeletal Disorders: No Hx Family Neuromuscular Disorders: No Hx Family Neurologic Disorders: No Hx Family HEENT Disorders: No Father Race: Family Member Ethnicity: Non- Living Status: Age at : 58 Cause of : [place] Hx Family Cardiac Disorders: Yes (NH) Brother Race: Family Member Ethnicity: Non- Living Status: Age at : 76 Cause of : Lung cancer Hx Family Cancer: Yes (Lung) Medications and Allergies Albuterol Sulfate [Albuterol Inhaler] 2 puff IH Q6H PRN 05/27/17 [History] Budesonide/Formoterol 80/4.5 [Symbicort 80/4.5] 2 puff IH BID 05/27/17 [History ] Amiodarone [Cordarone] 200 mg PO DAILY tablet 06/06/17 [Rx] Aspirin Enteric Coated [Aspirin EC] 81 mg PO Q48H #0 tablet.dr 06/20/17 [Rx] Digoxin [Lanoxin] 0.25 mg PO DAILY #30 tablet 06/20/17 [Rx] Furosemide [Lasix] 20 mg PO DAILY #0 tablet 06/20/17 [Rx] Isosorbide MONOnitrate (24 HR) [Imdur] 60 mg PO DAILY #30 tab.er.24h 06/20/17 [ Rx] Lisinopril [Zestril] 5 mg PO DAILY #30 tablet 06/20/17 [Rx] Ranitidine HCl [Heartburn Relief] 150 mg PO BID PRN #0 06/20/17 [Rx] Warfarin [Coumadin] 1.5 mg PO QPM 07/06/17 [History] 3 Allergy/AdvReac Type Severity Reaction Status Date / Time No Known Allergies Allergy Verified 07/05/17 13:12 All Systems: A 10-system review of systems was performed and is negative for pertinent findings except as documented above in the HPI. Physical Examination - Vital Signs Vital Signs: Initial Vital Signs Temp Pulse Resp BP Pulse Ox 98.4 F 89 18 124/68 97 07/05/17 13:07 07/05/17 13:07 07/05/17 13:07 07/05/17 13:07 07/05/17 13:07 - Constitutional General appearance: chronically ill - Neurologic Sensorimotor examination: other (Unable to assess due to inco-operativity) Detailed motor examination: other (Moves both arms and localize to pain. Do not move her legs, however. Screams when lifting her legs up passively) Detailed sensory examination: other (Unable to assess due to incooperativity) Posture: other (None) Reflex and gait examination: other (Unable to assess) Reflexes: Biceps: 0, Triceps: 0, Brachioradialis: 0, Patella: 0, Achilles: 0 Mental Status Examination: awake, alert (Agiated when asked questions. ), does not follow commands, agitated, makes eye contact (Moans and refuses to open eyes ), grimmacing, answers questions by nodding yes or no Cranial nerve examination: PERRL, EOMI (Unable to assess, but no significant gaze palsy), visual baez intact (to assess), corneal reflexes brisk symmetrically, no facial asymmetry is present, gag reflex intact (Unable to assess), tongue protrudes midline (Unable to assess) Results - Laboratory Findings CBC and BMP: 07/16/17 04:31 07/16/17 04:31 Abnormal lab findings: Abnormal lab results RBC 2.65 M/mcL (3.82-4.97) L 07/16/17 04:31 Hgb 7.5 g/dL (11.5-15.4) L 07/16/17 04:31 Hct 24.3 % (35.3-44.9) L 07/16/17 04:31 MCHC 30.9 g/dL (31.6-35.5) L 07/16/17 04:31 RDW 16.2 % (11.5-14.5) H 07/16/17 04:31 MPV 9.3 fL (9.4-12.4) L 07/16/17 04:31 Nucleated RBCs/100 WBC 0.4 /100 WBC (0) H 07/09/17 04:40 PT 52.0 Seconds (9.4-12.1) H* 07/16/17 04:31 INR 4.7 H* 07/16/17 04:31 APTT 56.0 Seconds (26.0-36.0) H 07/06/17 05:59 ABG pCO2 48 mmHg (35-45) H 07/15/17 19:10 ABG pO2 73 mmHg (85-104) L 07/15/17 19:10 ABG HCO3 33 mEq/L (21-27) H 07/15/17 19:10 ABG Total CO2 34 mEq/L (20-26) H 07/15/17 19:10 ABG Base Excess 7 mEq/L (-2 to 3) H 07/15/17 19:10 Potassium 3.0 mEq/L (3.5-5.1) L 07/16/17 04:31 Carbon Dioxide 30 mEq/L (23-29) H 07/16/17 04:31 Glucose 157 mg/dL (70-105) H 07/16/17 04:31 POC Glucose 181 (58-89) H 07/16/17 11:53 Hemoglobin A1c 7.8 % (-5.6) H 07/08/17 00:55 Calcium 7.7 mg/dL (8.6-10.3) L 07/16/17 04:31 AST 8 Units/L (13-39) L 07/16/17 04:31 Alkaline Phosphatase 32 Units/L (34-104) L 07/16/17 04:31 Serum Total Protein 5.7 g/dL (6.4-8.9) L 07/16/17 04:31 Albumin 2.0 g/dL (3.5-5.7) L 07/16/17 04:31 Globulin 3.7 g/dL (2.4-3.5) H 07/16/17 04:31 Albumin/Globulin Ratio 0.5 (1.1-2.2) L 07/16/17 04:31 Cholesterol 210 mg/dL (< 200) H 07/06/17 05:59 LDL Cholesterol, Calc 145 mg/dL (0-99) H 07/06/17 05:59 HDL Cholesterol 38 mg/dL (40-59) L 07/06/17 05:59 Cholesterol/HDL Ratio 5.5 (0-4.9) H 07/06/17 05:59 Urine Blood Trace (Negative) H 07/15/17 13:20 Ur Leukocyte Esterase Trace (Negative) H 07/15/17 13:20 Urine Microscopic RBC 3-5 per hpf (0-3) H 07/15/17 13:20 Urine Microscopic WBC 3-5 per hpf (0-3) H 07/15/17 13:20 Ur Squamous Epith Cells Moderate per lpf (None-Few) H 07/15/17 13:20 Urine Yeast Few per hpf (None Seen) H 07/15/17 13:20 Ur Culture Indicated? YES (NO) A 07/15/17 13:20 Staphylococcus sp PCR DETECTED (Not Detect) A 07/14/17 07:56 Staph aureus (PCR) DETECTED (Not Detect) A 07/14/17 07:56 mecA-Methicil Res Gene DETECTED (Not Detect) A 07/14/17 07:56 Consult Discharge Plan - Plan Referrals: Barbra Juarez MD [Primary Care Provider] - Prince Wolf MD [Family Provider] -
[2017-07-16] MEDS ORDERED: Bisacodyl 10 MG RECTAL SUPPOSITORY RC SCH (21:00)
[2017-07-16] MEDS: Bisacodyl 10 MG RECTAL SUPPOSITORY RC SCH (23:19)
[2017-07-17] MEDS: *HR* HYDROmorphone (PF) 1 MG/ML SYRINGE IVP PRN ×4 (02:48→16:32)
[2017-07-17 04:39] LABS: Basophils % 0.2 %; Eosinophils # 0.1 K/mcL (0.0-0.6); Eosinophils % 0.6 %; Hematocrit 25.1 % (35.3-44.9); Hemoglobin 7.6 g/dL (11.5-15.4); Immature Granulocytes % 0.6 % (0-4); Lymphocytes # 0.9 K/mcL (0.6-4.6); Lymphocytes % 9.1 %; Mean Corpuscular HGB Conc 30.3 g/dL (31.6-35.5); Mean Corpuscular Hemoglobin 27.8 pg (28.0-33.3); Mean Corpuscular Volume 91.9 fL (83.0-100.0); Mean Platelet Volume 9.1 fL (9.4-12.4); Monocytes # 0.8 K/mcL (0.0-1.3); Monocytes % 7.7 %; Neutrophils # 8.4 K/mcL (1.6-8.9); Platelet Count 356 K/mcL (140-400); Red Blood Count 2.73 M/mcL (3.82-4.97); Red Cell Distribution Width 16.1 % (11.5-14.5); Segmented Neutrophils % 81.8 %
[2017-07-17 05:05] LABS: INR 5.7; Prothrombin Time 64.2 Seconds (9.4-12.1)
[2017-07-17 05:13] LABS: BUN/Creatinine Ratio 18 (6-26); Blood Urea Nitrogen 12 mg/dL (8-23); Calcium 7.8 mg/dL (8.6-10.3); Carbon Dioxide 30 mEq/L (23-29); Chloride 103 mEq/L (98-107); Glucose 217 mg/dL (70-105); Magnesium 2.1 mg/dL (1.6-2.6); Osmolality,Calculated 294 (280-300); Potassium 3.5 mEq/L (3.5-5.1); Sodium 139 mEq/L (136-145); eGFR For African Americans > 60 (> 60); eGFR For Non-African Americans > 60 (> 60)
[2017-07-17] MEDS: *HR* LORazepam 2 MG/ML VIAL IVP PRN ×3 (05:24→19:13)
[2017-07-17] MEDS ORDERED: *HR* Phytonadione 5 MG TABLET PO ONE (07:46)
[2017-07-17] MEDS: *HR* Amiodarone 200 MG TABLET PO SCH (08:52)
[2017-07-17] MEDS: Nitroglycerin 0.4 MG PATCH.TD24 TD SCH (08:52)
[2017-07-17] MEDS: Insulin LISPRO 300 UNITS/3 ML VIAL SQ SCH ×4 (08:53→22:02)
[2017-07-17] MEDS: Piperacillin/Tazobactam 3.375 GM/200 ML BAG IVPB SCH ×2 (08:53→17:00)
[2017-07-17] MEDS: Acetaminophen 650 MG RECTAL SUPP RC PRN (10:46)
--- NOTE | 2017-07-17 10:57 | Palliative Progress Note ---
Date of Encounter: 07/17/17 Time of Encounter: 10:55 - Assessment and plan (1) Altered mental status Current Visit: Yes Status: Acute Assessment and plan: Continued workup with neurology/ID following - repeat MRI noted. Discussed with Dr. Thompson this am, who will be discussing with specialty. Qualifiers: Altered mental status type: unspecified Qualified Code(s): R41.82 - Altered mental status, unspecified (2) Counseling regarding advanced care planning and goals of care Current Visit: Yes Status: Acute Assessment and plan: Daughter Inge at bedside, frustrated that do not have source of infection identified. Provided emotional support. At this time, daughter still ok with continuing to find source of infection - understands that further test including LP/thoracentesis may be discussed today. FFP ordered for coagualopathy. Will continue to follow closely. (3) MRSA (methicillin resistant Staphylococcus aureus) infection Current Visit: Yes Status: Acute - Time Spent With Patient Total time spent is greater than 50% in coordination of care (as documented) at patient's floor/unit and/or counseling patient: 25 - 35 minutes - Subjective Interval history: Patient remains obtunded, febrile this am 100.7 axillary. Moaning constantly. Patient does not respond or interact with daughter at bedside. INR 5.7. - Constitutional Vitals: Abnormal lab results RBC 2.73 M/mcL (3.82-4.97) L 07/17/17 04:31 Hgb 7.6 g/dL (11.5-15.4) L 07/17/17 04:31 Hct 25.1 % (35.3-44.9) L 07/17/17 04:31 MCH 27.8 pg (28.0-33.3) L 07/17/17 04:31 MCHC 30.3 g/dL (31.6-35.5) L 07/17/17 04:31 RDW 16.1 % (11.5-14.5) H 07/17/17 04:31 MPV 9.1 fL (9.4-12.4) L 07/17/17 04:31 Nucleated RBCs/100 WBC 0.4 /100 WBC (0) H 07/09/17 04:40 PT 64.2 Seconds (9.4-12.1) H* 07/17/17 04:31 INR 5.7 H* 07/17/17 04:31 APTT 56.0 Seconds (26.0-36.0) H 07/06/17 05:59 ABG pCO2 48 mmHg (35-45) H 07/15/17 19:10 ABG pO2 73 mmHg (85-104) L 07/15/17 19:10 ABG HCO3 33 mEq/L (21-27) H 07/15/17 19:10 ABG Total CO2 34 mEq/L (20-26) H 07/15/17 19:10 ABG Base Excess 7 mEq/L (-2 to 3) H 07/15/17 19:10 Carbon Dioxide 30 mEq/L (23-29) H 07/17/17 04:31 Glucose 217 mg/dL (70-105) H 07/17/17 04:31 POC Glucose 203 (58-89) H 07/16/17 19:38 Hemoglobin A1c 7.8 % (-5.6) H 07/08/17 00:55 Calcium 7.8 mg/dL (8.6-10.3) L 07/17/17 04:31 AST 8 Units/L (13-39) L 07/16/17 04:31 Alkaline Phosphatase 32 Units/L (34-104) L 07/16/17 04:31 Serum Total Protein 5.7 g/dL (6.4-8.9) L 07/16/17 04:31 Albumin 2.0 g/dL (3.5-5.7) L 07/16/17 04:31 Globulin 3.7 g/dL (2.4-3.5) H 07/16/17 04:31 Albumin/Globulin Ratio 0.5 (1.1-2.2) L 07/16/17 04:31 Cholesterol 210 mg/dL (< 200) H 07/06/17 05:59 LDL Cholesterol, Calc 145 mg/dL (0-99) H 07/06/17 05:59 HDL Cholesterol 38 mg/dL (40-59) L 07/06/17 05:59 Cholesterol/HDL Ratio 5.5 (0-4.9) H 07/06/17 05:59 Urine Blood Trace (Negative) H 07/15/17 13:20 Ur Leukocyte Esterase Trace (Negative) H 07/15/17 13:20 Urine Microscopic RBC 3-5 per hpf (0-3) H 07/15/17 13:20 Urine Microscopic WBC 3-5 per hpf (0-3) H 07/15/17 13:20 Ur Squamous Epith Cells Moderate per lpf (None-Few) H 07/15/17 13:20 Urine Yeast Few per hpf (None Seen) H 07/15/17 13:20 Ur Culture Indicated? YES (NO) A 07/15/17 13:20 Staphylococcus sp PCR DETECTED (Not Detect) A 07/14/17 07:56 Staph aureus (PCR) DETECTED (Not Detect) A 07/14/17 07:56 mecA-Methicil Res Gene DETECTED (Not Detect) A 07/14/17 07:56 General appearance: Present: mild distress - Respiratory Respiratory exam: Present: CTAB - Cardiovascular Cardiovascular exam: Present: +S1, +S2 - GI/Abdominal GI/Abdominal exam: Present: normal bowel sounds, soft - Extremities Exam Extremities exam: Present: normal capillary refill, normal inspection - Neurological Exam Additional comments: Moaning - doesn't not follow commands. Nonverbal - Skin Skin exam: Present: dry, pallor, warm Palliative Quality Palliative Quality: Screen for Code Status: Yes, Screen for Goals of Care: Yes, Screen for Pain: Yes, If Pain Regimen Started, Initiate Bowel Regimen: Yes, Screen for Nausea/Vomitting: Yes Code Status: 07/16/17 14:43 DNR [Resuscitation Status: Active] [RES] Routine Comment: Resuscitation Status: [id number] - Labs CBC & Chem 7: 07/17/17 04:31 07/17/17 04:31 Labs: Laboratory Results - last 24 hr 07/15/17 07/15/17 07/16/17 17:03 21:07 07:02 WBC RBC Hgb Hct MCV MCH MCHC RDW Plt Count MPV Immature Gran % Seg Neutrophils % Lymphocytes % Monocytes % Eosinophils % Basophils % Neutrophils # Lymphocytes # Monocytes # Eosinophils # Basophils # PT INR Sodium Potassium Chloride Carbon Dioxide BUN Creatinine Est GFR ( Amer) Est GFR (Non-Af Amer) BUN/Creatinine Ratio Glucose POC Glucose 201 H 148 H 169 H Calculated Osmolality Calcium Magnesium 07/16/17 07/16/17 07/16/17 11:53 16:44 19:38 WBC RBC Hgb Hct MCV MCH MCHC RDW Plt Count MPV Immature Gran % Seg Neutrophils % Lymphocytes % Monocytes % Eosinophils % Basophils % Neutrophils # Lymphocytes # Monocytes # Eosinophils # Basophils # PT INR Sodium Potassium Chloride Carbon Dioxide BUN Creatinine Est GFR ( Amer) Est GFR (Non-Af Amer) BUN/Creatinine Ratio Glucose POC Glucose 181 H 165 H 203 H Calculated Osmolality Calcium Magnesium 07/17/17 07/17/17 07/17/17 04:31 04:31 04:31 WBC 10.3 RBC 2.73 L Hgb 7.6 L Hct 25.1 L MCV 91.9 MCH 27.8 L MCHC 30.3 L RDW 16.1 H Plt Count 356 MPV 9.1 L Immature Gran % 0.6 Seg Neutrophils % 81.8 Lymphocytes % 9.1 Monocytes % 7.7 Eosinophils % 0.6 Basophils % 0.2 Neutrophils # 8.4 Lymphocytes # 0.9 Monocytes # 0.8 Eosinophils # 0.1 Basophils # 0.0 PT 64.2 H* INR 5.7 H* Sodium 139 Potassium 3.5 Chloride 103 Carbon Dioxide 30 H BUN 12 Creatinine 0.67 Est GFR ( Amer) > 60 Est GFR (Non-Af Amer) > 60 BUN/Creatinine Ratio 18 Glucose 217 H POC Glucose Calculated Osmolality 294 Calcium 7.8 L Magnesium 2.1 - Impressions Impressions Chest X-Ray 07/16/17 12:12 IMPRESSION: Increasing moderate left pleural effusion with increasing airspace opacity in the left lung. There is increasing subtle opacity in the mid to lower right lung as well which may reflect a layering pleural effusion. D/ / 07/16/2017 13:02:53 Allison Ojeda MD / ronak Interpreting Provider: Allison Ojeda MD Head CT 07/16/17 13:54 IMPRESSION: No acute brain abnormality with stable low-density white matter, likely from chronic small vessel disease. Increased mastoid and bilateral middle ear opacification. This could represent otitis media and/or developing mastoiditis. Slight increased sphenoid sinus disease. D/ / Jean Damico MD / Jean Damico MD Interpreting Provider: Jean Damico MD Brain MRI 07/16/17 15:16 IMPRESSION: Motion degraded study. No significant change in small, acute infarcts in the bilateral mcdowell radiata and centrum semiovale, which may reflect acute, lacunar infarcts. No new infarct is seen. Mild chronic microvascular ischemic disease. D/ / 07/16/2017 19:30:50 Juan Jose Ojeda MD / bcarter Interpreting Provider: Juan Jose Ojeda MD - ABG Interpretation ABG results: ABG ABG pH 7.44 pH Units (7.32-7.45) 07/15/17 19:10 ABG pCO2 48 mmHg (35-45) H 07/15/17 19:10 ABG pO2 73 mmHg (85-104) L 07/15/17 19:10 ABG O2 Saturation 95 % (95-98) 07/15/17 19:10 PT/INR, D-dimer PT 64.2 Seconds (9.4-12.1) H* 07/17/17 04:31 Consult Discharge Plan - Plan Referrals: Barbra Juarez MD [Primary Care Provider] - Prince Wolf MD [Family Provider] -
[2017-07-17] MEDS: Silvasorb 44.4 ML TUBE TP SCH (11:05)
[2017-07-17 11:13] LABS: Adenovirus Not Detected (Not Detect); Bordetella Pertussis Not Detected (Not Detect); Chlamydophila pneumoniae Not Detected (Not Detect); Coronavirus 229E Not Detected (Not Detect); Coronavirus HKU1 Not Detected (Not Detect); Coronavirus NL63 Not Detected (Not Detect); Coronavirus OC43 Not Detected (Not Detect); Human Metapneumovirus Not Detected (Not Detect); Human Rhinovirus/Enterovirus Not Detected (Not Detect); Influenza A Subtype 2009 H1 Not Detected (Not Detect); Influenza A Untypeable Not Detected (Not Detect); Influenza B Not Detected (Not Detect); Mycoplasma pneumoniae Not Detected (Not Detect); Parainfluenza Virus 1 Not Detected (Not Detect); Parainfluenza Virus 2 Not Detected (Not Detect); Parainfluenza Virus 3 Not Detected (Not Detect); Parainfluenza Virus 4 Not Detected (Not Detect); Respiratory Syncytial Virus Not Detected (Not Detect)
--- NOTE | 2017-07-17 12:02 | Infectious Disease Progress No ---
Date of Encounter: 07/17/17 Time of Encounter: 12:00 - Assessment and Plan (1) MRSA bacteremia Current Visit: Yes Status: Acute Causative organism: MRSA. Source not clear. The patient did have a femur MRI that showed moderate volume of fluid in the right greater trochanteric bursa, but no evidence of septic arthritis. Joint aspiration negative for septic arthritis as well. Blood cultures drawn 07/08/17 grew MRSA, 2/2 sets. Additional blood cultures drawn 07/09/17 were positive 2/2 sets as well. Repeat blood cultures drawn 07/10/17 x 1 set and 07/12/17 x 1 set are also positive. Additional blood cultures drawn 07/14/17 are positive 1/2 sets. The patient has one major and one minor Modified Lindsay's Criteria. TTE negative for vegetations. No endocarditis stigmata noted on exam. GILBERTO negative. CODY of Vanc is 1, so it is unlikely that the patient is failing Vanc due to high CODY. Etiology of persistent bacteremia not clear, but the most recent set of blood cultures were drawn <48 hours after the patient had therapeutic Vanc trough, which could also be contributing to this. Repeat blood cultures x 2 sets drawn 07/16/17 are pending. Will repeat blood cultures again in the AM. Continue Vancomycin IV. Pharmacy to dose. Goal trough ~15. Vanc trough 17.6 07/15. Duration of treatment depends on the clinical picture. Monitor renal function and for drug toxicity and dose-adjust antibiotics. Avoid insertion of central venous access until blood cultures are negative x 48 hours. (2) Altered mental status Current Visit: Yes Status: Acute Likely secondary to acute lacunar infarct and worsened by infectious process and medications, but given that the patient's mental status is not improving, I am not sure that it is related to her bacteremia. CT head negative, but MRI of the brain showed multiple small infarcts in the bilateral mcdowell radiata and centrum semiovale compatible with bilateral acute lacunar infarcts. Neurology consulted. CT head and brain MRI repeated 07/16/17, but do not show any new findings. Case discussed with Neurology by Dr. Benjamin. Continue to monitor closely. Qualifiers: Altered mental status type: unspecified Qualified Code(s): R41.82 - Altered mental status, unspecified (3) Lacunar infarct, acute Current Visit: Yes Status: Acute (4) Lipoma Current Visit: Yes Status: Acute Location: Right thigh. CT scan of the right hip showed a partially visualized fat density mass in the psoterior aspect of the proximal right thigh with thin internal septations, most likely representing a lipoma or benign atypical lipomatous tumor. MRI of the right femur again showed findings consistent with lipoma vs. benign atypical lipomatous tumor with significant mass effect the hamstring musculature. Qualifiers: Lipoma location: lower extremity Laterality: right Qualified Code(s): D17.23 - Benign lipomatous neoplasm of skin and subcutaneous tissue of right leg (5) Supratherapeutic INR Current Visit: Yes Status: Acute INR 5.7 despite Vitamin K given yesterday and Coumadin being held. Further workup and evaluation per the primary team. (6) Chronic kidney disease (CKD) stage G3a/A3, moderately decreased glomerular filtration rate (GFR) between 45-59 mL/min/1.73 square meter and albuminuria creatinine ratio greater than 300 mg/g Current Visit: Yes Status: Acute Serum creatinine normal at this time. Continue to trend. Dose-adjust antibiotics as needed. Avoid nephrotoxins as able. (7) Chronic pain syndrome Current Visit: Yes Status: Acute Patient has had multiple MRIs and CT scans of the cervical, lumbar, thoracic spine and hips which revealed degenerative arthritis with no acute infectious process. (8) Arthritis Current Visit: Yes Status: Acute (9) Diabetes mellitus type 2 in obese Current Visit: No Status: Chronic Recommend aggressive glucose monitoring and control. Management per the primary team. 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 There was also a moderate volume of fluid in the right greater trochanteric bursa. Ortho consulted and appreciate their recommendations. Status post right hip bursa aspiration. Did not appear to be pus. Gram stain and culture negative. Pain management per the primary team. (11) HCAP (healthcare-associated pneumonia) Current Visit: Yes Status: Acute CXR completed 07/08/17 showed findings suspicious for bibasilar atelectasis or PNA. Not sure if the patient truly has PNA or not. Currently on day 7 of Cefepime and received 1 day of Zosyn prior to switching to cefepime. CXR shows worsening left pneumonia. Concern for aspiration. Continue Zosyn 3.375 grams IV Q8H (day 2) Duration of treatment depends on the clinical picture. (12) Crain catheter in place Current Visit: Yes Status: Acute Crain catheter placed on admission. Urine color and clarity removed since the crain was switched out. - Subjective Interval history: Patient seen and examined. No acute events noted overnight. Patient continues to have AMS and cannot give me any ROS information other than she is in pain. Per family, the patient continues to be intermittently combative. She had a fever this morning. Infect Dis PN-Objective Data - Labs CBC & Chem 7: 07/17/17 04:31 07/17/17 04:31 Labs: Laboratory Results - last 24 hr 07/15/17 07/15/17 07/16/17 17:03 21:07 07:02 WBC RBC Hgb Hct MCV MCH MCHC RDW Plt Count MPV Immature Gran % Seg Neutrophils % Lymphocytes % Monocytes % Eosinophils % Basophils % Neutrophils # Lymphocytes # Monocytes # Eosinophils # Basophils # PT INR Sodium Potassium Chloride Carbon Dioxide BUN Creatinine Est GFR ( Amer) Est GFR (Non-Af Amer) BUN/Creatinine Ratio Glucose POC Glucose 201 H 148 H 169 H Calculated Osmolality Calcium Magnesium Chlamy pneumoniae PCR Adenovirus (PCR) B. pertussis DNA (PCR) B.parapertussis DNA PCR Coronavirus OC43 (PCR) Coronavirus HKU1 (PCR) Coronavirus 229E (PCR) Coronavirus NL63 (PCR) Human Metapneumovir PCR Influenza A (H1) PCR Influ A (H1N1/09) PCR Influenza A (H3) PCR Influenza A Untype (PCR) Influenza Type B (PCR) M.pneumoniae DNA (PCR) Parainfluenza 1 (PCR) Parainfluenza 2 (PCR) Parainfluenza 3 (PCR) Parainfluenza 4 (PCR) RSV (PCR) Entero/Rhino (PCR) 07/16/17 07/16/17 07/16/17 11:53 16:44 19:38 WBC RBC Hgb Hct MCV MCH MCHC RDW Plt Count MPV Immature Gran % Seg Neutrophils % Lymphocytes % Monocytes % Eosinophils % Basophils % Neutrophils # Lymphocytes # Monocytes # Eosinophils # Basophils # PT INR Sodium Potassium Chloride Carbon Dioxide BUN Creatinine Est GFR ( Amer) Est GFR (Non-Af Amer) BUN/Creatinine Ratio Glucose POC Glucose 181 H 165 H 203 H Calculated Osmolality Calcium Magnesium Chlamy pneumoniae PCR Adenovirus (PCR) B. pertussis DNA (PCR) B.parapertussis DNA PCR Coronavirus OC43 (PCR) Coronavirus HKU1 (PCR) Coronavirus 229E (PCR) Coronavirus NL63 (PCR) Human Metapneumovir PCR Influenza A (H1) PCR Influ A (H1N1) PCR Influenza A (H3) PCR Influenza A Untype (PCR) Influenza Type B (PCR) M.pneumoniae DNA (PCR) Parainfluenza 1 (PCR) Parainfluenza 2 (PCR) Parainfluenza 3 (PCR) Parainfluenza 4 (PCR) RSV (PCR) Entero/Rhino (PCR) 07/17/17 07/17/17 07/17/17 04:31 04:31 04:31 WBC 10.3 RBC 2.73 L Hgb 7.6 L Hct 25.1 L MCV 91.9 MCH 27.8 L MCHC 30.3 L RDW 16.1 H Plt Count 356 MPV 9.1 L Immature Gran % 0.6 Seg Neutrophils % 81.8 Lymphocytes % 9.1 Monocytes % 7.7 Eosinophils % 0.6 Basophils % 0.2 Neutrophils # 8.4 Lymphocytes # 0.9 Monocytes # 0.8 Eosinophils # 0.1 Basophils # 0.0 PT 64.2 H* INR 5.7 H* Sodium 139 Potassium 3.5 Chloride 103 Carbon Dioxide 30 H BUN 12 Creatinine 0.67 Est GFR ( Amer) > 60 Est GFR (Non-Af Amer) > 60 BUN/Creatinine Ratio 18 Glucose 217 H POC Glucose Calculated Osmolality 294 Calcium 7.8 L Magnesium 2.1 Chlamy pneumoniae PCR Adenovirus (PCR) B. pertussis DNA (PCR) B.parapertussis DNA PCR Coronavirus OC43 (PCR) Coronavirus HKU1 (PCR) Coronavirus 229E (PCR) Coronavirus NL63 (PCR) Human Metapneumovir PCR Influenza A (H1) PCR Influ A (H1N1/) PCR Influenza A (H3) PCR Influenza A Untype (PCR) Influenza Type B (PCR) M.pneumoniae DNA (PCR) Parainfluenza 1 (PCR) Parainfluenza 2 (PCR) Parainfluenza 3 (PCR) Parainfluenza 4 (PCR) RSV (PCR) Entero/Rhino (PCR) 07/17/17 07/17/17 08:09 09:15 WBC RBC Hgb Hct MCV MCH MCHC RDW Plt Count MPV Immature Gran % Seg Neutrophils % Lymphocytes % Monocytes % Eosinophils % Basophils % Neutrophils # Lymphocytes # Monocytes # Eosinophils # Basophils # PT INR Sodium Potassium Chloride Carbon Dioxide BUN Creatinine Est GFR ( Amer) Est GFR (Non-Af Amer) BUN/Creatinine Ratio Glucose POC Glucose 205 H Calculated Osmolality Calcium Magnesium Chlamy pneumoniae PCR Not Detected Adenovirus (PCR) Not Detected B. pertussis DNA (PCR) Not Detected B.parapertussis DNA PCR Not Detected Coronavirus OC43 (PCR) Not Detected Coronavirus HKU1 (PCR) Not Detected Coronavirus 229E (PCR) Not Detected Coronavirus NL63 (PCR) Not Detected Human Metapneumovir PCR Not Detected Influenza A (H1) PCR Not Detected Influ A (H1N1/09) PCR Not Detected Influenza A (H3) PCR Not Detected Influenza A Untype (PCR) Not Detected Influenza Type B (PCR) Not Detected M.pneumoniae DNA (PCR) Not Detected Parainfluenza 1 (PCR) Not Detected Parainfluenza 2 (PCR) Not Detected Parainfluenza 3 (PCR) Not Detected Parainfluenza 4 (PCR) Not Detected RSV (PCR) Not Detected Entero/Rhino (PCR) Not Detected Cultures: Cultures 07/14/17 17:59 Blood Culture - Preliminary Peripheral Venipuncture No growth. 07/14/17 07:56 Blood Culture - Preliminary Peripheral Venipuncture Gram Positive Cocci 07/15/17 11:27 Gram Stain - Final Left Hip 07/12/17 03:55 Blood Culture - Final Peripheral Venipuncture Methicillin Resistant S.aureus 07/10/17 14:13 Blood Culture - Final Peripheral Venipuncture Methicillin Resistant S.aureus 07/09/17 14:15 Blood Culture - Final Peripheral Venipuncture Methicillin Resistant S.aureus 07/09/17 14:15 Blood Culture - Final Peripheral Venipuncture Methicillin Resistant S.aureus 07/08/17 00:55 Blood Culture - Final Peripheral Venipuncture Methicillin Resistant S.aureus 07/08/17 00:55 Blood Culture - Final Peripheral Venipuncture Methicillin Resistant S.aureus 07/08/17 08:10 Legionella Antigen - Final Urine,Clean Catch 07/08/17 08:10 Streptococcus pneumoniae Antigen (M - Final Urine,Clean Catch Serology 07/17/17 07/15/17 07/14/17 Range/Units 09:15 13:20 07:56 Urine Color Yellow (Yellow) Urine Clarity Clear (Clear) Urine pH 6.0 (5.0-8.0) pH Units Ur Specific [place] 1.011 (1.010-1.025) Urine Protein Negative (Neg-Trace) mg/dL Urine Glucose (UA) Normal (Normal) mg/dL Urine Ketones Negative (Negative) mg/dL Urine Blood Trace H (Negative) Urine Nitrite Negative (Negative) Urine Bilirubin Negative (Negative) Urine Urobilinogen Normal (Normal) mg/dL Ur Leukocyte Esterase Trace H (Negative) Urine Microscopic RBC 3-5 H (0-3) per hpf Urine Microscopic WBC 3-5 H (0-3) per hpf Ur Squamous Epith Cells Moderate H (None-Few) per lpf Urine Bacteria None Seen (None-Few) per hpf Hyaline Casts None Seen (None-Few) per lpf Urine Yeast Few H (None Seen) per hpf Ur Culture Indicated? YES A (NO) A. baumannii (PCR) Not Detected (Not Detect) Chlamy pneumoniae PCR Not Detected (Not Detect) Adenovirus (PCR) Not Detected (Not Detect) B. pertussis DNA (PCR) Not Detected (Not Detect) B.parapertussis DNA PCR Not Detected (Not Detect) Adelina albicans (PCR) Not Detected (Not Detect) C. glabrata (PCR) Not Detected (Not Detect) C. krusei (PCR) Not Detected (Not Detect) C. parapsilosis (PCR) Not Detected (Not Detect) C. tropicalis (PCR) Not Detected (Not Detect) Coronavirus OC43 (PCR) Not Detected (Not Detect) Coronavirus HKU1 (PCR) Not Detected (Not Detect) Coronavirus 229E (PCR) Not Detected (Not Detect) Coronavirus NL63 (PCR) Not Detected (Not Detect) Enterobacteriac sp PCR Not Detected (Not Detect) E. cloacae complex PCR Not Detected (Not Detect) Enterococcus sp PCR Not Detected (Not Detect) E. coli (PCR) Not Detected (Not Detect) H. influenzae (PCR) Not Detected (Not Detect) Human Metapneumovir PCR Not Detected (Not Detect) Influenza A (H1) PCR Not Detected (Not Detect) Influ A (H1N1/09) PCR Not Detected (Not Detect) Influenza A (H3) PCR Not Detected (Not Detect) Influenza A Untype (PCR) Not Detected (Not Detect) Influenza Type B (PCR) Not Detected (Not Detect) Klebsiella oxytoca PCR Not Detected (Not Detect) Klebsiella pneumoniae Not Detected (Not Detect) List. monocytogenes PCR Not Detected (Not Detect) M.pneumoniae DNA (PCR) Not Detected (Not Detect) N. meningitidis (PCR) Not Detected (Not Detect) Parainfluenza 1 (PCR) Not Detected (Not Detect) Parainfluenza 2 (PCR) Not Detected (Not Detect) Parainfluenza 3 (PCR) Not Detected (Not Detect) Parainfluenza 4 (PCR) Not Detected (Not Detect) Proteus species (PCR) Not Detected (Not Detect) RSV (PCR) Not Detected (Not Detect) Entero/Rhino (PCR) Not Detected (Not Detect) Serratia marcescens PCR Not Detected (Not Detect) Staphylococcus sp PCR DETECTED A (Not Detect) Staph aureus (PCR) DETECTED A (Not Detect) mecA-Methicil Res Gene DETECTED A (Not Detect) Streptococcus sp PCR Not Detected (Not Detect) Group A Strep DNA Not Detected (Not Detect) Group B Strep (PCR) Not Detected (Not Detect) Strep pneumoniae (PCR) Not Detected (Not Detect) P. aeruginosa (PCR) Not Detected (Not Detect) Alexa/B-Vanco Res Genes Not Detected (Not Detect) KPC (blaKPC) Detect PCR Not Detected (Not Detect) 07/09/17 07/09/17 07/08/17 Range/Units 14:15 14:15 08:10 Urine Color Dark Yellow (Yellow) Urine Clarity Cloudy A (Clear) Urine pH 6.0 (5.0-8.0) pH Units Ur Specific [place] > 1.030 H (1.010-1.025) Urine Protein 100 H (Neg-Trace) mg/dL Urine Glucose (UA) Normal (Normal) mg/dL Urine Ketones Negative (Negative) mg/dL Urine Blood Trace H (Negative) Urine Nitrite Negative (Negative) Urine Bilirubin Small H (Negative) Urine Urobilinogen Normal (Normal) mg/dL Ur Leukocyte Esterase Negative (Negative) Urine Microscopic RBC 5-15 H (0-3) per hpf Urine Microscopic WBC 30-50 H (0-3) per hpf Ur Squamous Epith Cells Moderate H (None-Few) per lpf Urine Bacteria Few (None-Few) per hpf Hyaline Casts Few (None-Few) per lpf Urine Yeast Moderate H (None Seen) per hpf Ur Culture Indicated? NO (NO) A. baumannii (PCR) Not Detected Not Detected (Not Detect) Chlamy pneumoniae PCR (Not Detect) Adenovirus (PCR) (Not Detect) B. pertussis DNA (PCR) (Not Detect) B.parapertussis DNA PCR (Not Detect) Adelina albicans (PCR) Not Detected Not Detected (Not Detect) C. glabrata (PCR) Not Detected Not Detected (Not Detect) C. krusei (PCR) Not Detected Not Detected (Not Detect) C. parapsilosis (PCR) Not Detected Not Detected (Not Detect) C. tropicalis (PCR) Not Detected Not Detected (Not Detect) Coronavirus OC43 (PCR) (Not Detect) Coronavirus HKU1 (PCR) (Not Detect) Coronavirus 229E (PCR) (Not Detect) Coronavirus NL63 (PCR) (Not Detect) Enterobacteriac sp PCR Not Detected Not Detected (Not Detect) E. cloacae complex PCR Not Detected Not Detected (Not Detect) Enterococcus sp PCR Not Detected Not Detected (Not Detect) E. coli (PCR) Not Detected Not Detected (Not Detect) H. influenzae (PCR) Not Detected Not Detected (Not Detect) Human Metapneumovir PCR (Not Detect) Influenza A (H1) PCR (Not Detect) Influ A (H1N1/09) PCR (Not Detect) Influenza A (H3) PCR (Not Detect) Influenza A Untype (PCR) (Not Detect) Influenza Type B (PCR) (Not Detect) Klebsiella oxytoca PCR Not Detected Not Detected (Not Detect) Klebsiella pneumoniae Not Detected Not Detected (Not Detect) List. monocytogenes PCR Not Detected Not Detected (Not Detect) M.pneumoniae DNA (PCR) (Not Detect) N. meningitidis (PCR) Not Detected Not Detected (Not Detect) Parainfluenza 1 (PCR) (Not Detect) Parainfluenza 2 (PCR) (Not Detect) Parainfluenza 3 (PCR) (Not Detect) Parainfluenza 4 (PCR) (Not Detect) Proteus species (PCR) Not Detected Not Detected (Not Detect) RSV (PCR) (Not Detect) Entero/Rhino (PCR) (Not Detect) Serratia marcescens PCR Not Detected Not Detected (Not Detect) Staphylococcus sp PCR DETECTED A DETECTED A (Not Detect) Staph aureus (PCR) DETECTED A DETECTED A (Not Detect) mecA-Methicil Res Gene DETECTED A DETECTED A (Not Detect) Streptococcus sp PCR Not Detected Not Detected (Not Detect) Group A Strep DNA Not Detected Not Detected (Not Detect) Group B Strep (PCR) Not Detected Not Detected (Not Detect) Strep pneumoniae (PCR) Not Detected Not Detected (Not Detect) P. aeruginosa (PCR) Not Detected Not Detected (Not Detect) Alexa/B-Vanco Res Genes Not Detected N/A (Not Detect) KPC (blaKPC) Detect PCR Not Detected N/A (Not Detect) 07/08/17 Range/Units 00:55 Urine Color (Yellow) Urine Clarity (Clear) Urine pH (5.0-8.0) pH Units Ur Specific [place] (1.010-1.025) Urine Protein (Neg-Trace) mg/dL Urine Glucose (UA) (Normal) mg/dL Urine Ketones (Negative) mg/dL Urine Blood (Negative) Urine Nitrite (Negative) Urine Bilirubin (Negative) Urine Urobilinogen (Normal) mg/dL Ur Leukocyte Esterase (Negative) Urine Microscopic RBC (0-3) per hpf Urine Microscopic WBC (0-3) per hpf Ur Squamous Epith Cells (None-Few) per lpf Urine Bacteria (None-Few) per hpf Hyaline Casts (None-Few) per lpf Urine Yeast (None Seen) per hpf Ur Culture Indicated? (NO) A. baumannii (PCR) Not Detected (Not Detect) Chlamy pneumoniae PCR (Not Detect) Adenovirus (PCR) (Not Detect) B. pertussis DNA (PCR) (Not Detect) B.parapertussis DNA PCR (Not Detect) Adelina albicans (PCR) Not Detected (Not Detect) C. glabrata (PCR) Not Detected (Not Detect) C. krusei (PCR) Not Detected (Not Detect) C. parapsilosis (PCR) Not Detected (Not Detect) C. tropicalis (PCR) Not Detected (Not Detect) Coronavirus OC43 (PCR) (Not Detect) Coronavirus HKU1 (PCR) (Not Detect) Coronavirus 229E (PCR) (Not Detect) Coronavirus NL63 (PCR) (Not Detect) Enterobacteriac sp PCR Not Detected (Not Detect) E. cloacae complex PCR Not Detected (Not Detect) Enterococcus sp PCR Not Detected (Not Detect) E. coli (PCR) Not Detected (Not Detect) H. influenzae (PCR) Not Detected (Not Detect) Human Metapneumovir PCR (Not Detect) Influenza A (H1) PCR (Not Detect) Influ A (H1N1/09) PCR (Not Detect) Influenza A (H3) PCR (Not Detect) Influenza A Untype (PCR) (Not Detect) Influenza Type B (PCR) (Not Detect) Klebsiella oxytoca PCR Not Detected (Not Detect) Klebsiella pneumoniae Not Detected (Not Detect) List. monocytogenes PCR Not Detected (Not Detect) M.pneumoniae DNA (PCR) (Not Detect) N. meningitidis (PCR) Not Detected (Not Detect) Parainfluenza 1 (PCR) (Not Detect) Parainfluenza 2 (PCR) (Not Detect) Parainfluenza 3 (PCR) (Not Detect) Parainfluenza 4 (PCR) (Not Detect) Proteus species (PCR) Not Detected (Not Detect) RSV (PCR) (Not Detect) Entero/Rhino (PCR) (Not Detect) Serratia marcescens PCR Not Detected (Not Detect) Staphylococcus sp PCR DETECTED A (Not Detect) Staph aureus (PCR) DETECTED A (Not Detect) mecA-Methicil Res Gene DETECTED A (Not Detect) Streptococcus sp PCR Not Detected (Not Detect) Group A Strep DNA Not Detected (Not Detect) Group B Strep (PCR) Not Detected (Not Detect) Strep pneumoniae (PCR) Not Detected (Not Detect) P. aeruginosa (PCR) Not Detected (Not Detect) Alexa/B-Vanco Res Genes Not Detected (Not Detect) KPC (blaKPC) Detect PCR Not Detected (Not Detect) - Impressions Impressions Chest X-Ray 07/16/17 12:12 IMPRESSION: Increasing moderate left pleural effusion with increasing airspace opacity in the left lung. There is increasing subtle opacity in the mid to lower right lung as well which may reflect a layering pleural effusion. D/ / 07/16/2017 13:02:53 Allison Ojeda MD / ronak Interpreting Provider: Allison Ojeda MD Head CT 07/16/17 13:54 IMPRESSION: No acute brain abnormality with stable low-density white matter, likely from chronic small vessel disease. Increased mastoid and bilateral middle ear opacification. This could represent otitis media and/or developing mastoiditis. Slight increased sphenoid sinus disease. D/ / Jean Damico MD / Jean Damico MD Interpreting Provider: Jean Damico MD Brain MRI 07/16/17 15:16 IMPRESSION: Motion degraded study. No significant change in small, acute infarcts in the bilateral mcdowell radiata and centrum semiovale, which may reflect acute, lacunar infarcts. No new infarct is seen. Mild chronic microvascular ischemic disease. D/ / 07/16/2017 19:30:50 Jua nJose Ojeda MD / bcarter Interpreting Provider: Juan Jose Ojeda MD Exam - Constitutional Vitals: Temp Pulse Resp BP Pulse Ox 100.7 F H 87 18 152/114 91 07/17/17 08:17 07/17/17 08:17 07/17/17 08:17 07/17/17 08:17 07/17/17 09:00 General appearance: average body habitus, mild distress, no cooperative - Head Head exam: Present: atraumatic, normal inspection, normocephalic - Eye Eye exam: Present: EOMI, normal appearance, PERRL Pupils: Present: normal accommodation Additional comments: No subconjunctival hemorrhage noted. - ENT ENT exam: Present: mucous membranes dry - Neck Neck exam: Present: normal inspection - Respiratory Respiratory exam: Present: CTAB. Absent: rales, respiratory distress, rhonchi, wheezes - Cardiovascular Cardiovascular exam: Present: RRR, +S1, +S2 - GI/Abdominal GI/Abdominal exam: Present: distended, normal bowel sounds, soft, tenderness ( generalized - patient cries when palpating entire abdomen) - Extremities Exam Extremities exam: Present: pedal edema (1+ BLE). Absent: joint swelling, tenderness Additional comments: Chronic deformity noted to the RLE. - Neurological Exam Neurological exam: Present: altered (Crying, combative, resistant to exam). Absent: facial droop - Psychiatric Psychiatric exam: Present: agitated, anxious Additional comments: Tearful - Skin Skin exam: Present: dry, intact, normal color, warm Consult Discharge Plan - Plan Referrals: Barbra Juarez MD [Primary Care Provider] - Prince Wolf MD [Family Provider] - - Attending Attestation I examined this patient and my medical decision-making was reviewed with the Resident Physician. I agree with the documented findings, disposition and treatment plan as described except to the extent set forth below. D/w Dr Boyd from neurology, with Dr. buck from the hospitalist team and reviewed all the MRI's and CT of the head with radiology regarding possible mastoid fullness. apparently findings present from 07/05/17 and are unchanged. will continue to observe
--- NOTE | 2017-07-17 12:38 | Neurology Progress Note ---
Date of Encounter: 07/17/17 Time of Encounter: 12:32 Assessment and Plan (1) Altered mental status Current Visit: Yes Status: Acute Patient continues to be altered in terms of her mental status but the mental status assessment is difficult due to her being not co-operative. She has no significant nuchal rigidity. MRI of brain showed no acute intracranial abnormality. I think that the likelihood of [employer] infectious process is low. She has no symptoms of increased intracranial hypertension where headaches and nausea and vomiting would be prominent. 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 Her symptoms likely still the result of encephalopathy. Do not feel that she needs LP but if this needs to be done per medical team then prefer XR guide LP, plus her INR needs to be reversed. Please call if any questions. Qualifiers: Altered mental status type: unspecified Qualified Code(s): R41.82 - Altered mental status, unspecified Subjective Principal diagnosis: mental status changes, CVA Interval history: Patient seen and examined. Patient today is doing essentially similar to yesterday. She moans when being examined and would not answer questions but would say 'leave me alone' with her eyes closed. Unable to tell whether she has headaches or not but she does not have nausea or vomiting. Most of the time if she is not provoked she keeps quiet with her eyes closed. MRI of brain without contrast reviewed and no changes from previous study one weeks. There is no sign of hydrocephalus. Few acute lacunar infarcts are from previous CVA. Clinically, she was running a mild fever but i do not see nuchal rigidity. But neurological examination is difficulty due to incooperativity Objective - Constitutional Vitals: Temp Pulse Resp BP Pulse Ox 100.7 F H 87 18 152/114 91 07/17/17 08:17 07/17/17 08:17 07/17/17 08:17 07/17/17 08:17 07/17/17 09:00 General appearance: Present: A&O X 0, disheveled - Neurological Exam Sensorimotor examination: Present: other (Unable to assess due to inco- operativity) Motor Examination: Present: other (Moves both arms and localize to pain. Do not move her legs, however. Screams when lifting her legs up passively) Sensation intact: Present: other (Unable to assess due to incooperativity) Posture: Present: other (None) Reflex and gait examination: other (Unable to assess) Mental Status Examination: Present: awake, alert (Agiated when asked questions. ), does not follow commands, agitated, makes eye contact (Moans and refuses to open eyes), grimmacing, answers questions by nodding yes or no Cranial nerve examination: Present: PERRL, EOMI (Unable to assess, but no significant gaze palsy), visual baez intact (to assess), corneal reflexes brisk symmetrically, no facial asymmetry is present, gag reflex intact (Unable to assess), tongue protrudes midline (Unable to assess) Results - Laboratory Findings CBC and BMP: 07/17/17 04:31 07/17/17 04:31 Abnormal lab findings: Abnormal lab results RBC 2.73 M/mcL (3.82-4.97) L 07/17/17 04:31 Hgb 7.6 g/dL (11.5-15.4) L 07/17/17 04:31 Hct 25.1 % (35.3-44.9) L 07/17/17 04:31 MCH 27.8 pg (28.0-33.3) L 07/17/17 04:31 MCHC 30.3 g/dL (31.6-35.5) L 07/17/17 04:31 RDW 16.1 % (11.5-14.5) H 07/17/17 04:31 MPV 9.1 fL (9.4-12.4) L 07/17/17 04:31 Nucleated RBCs/100 WBC 0.4 /100 WBC (0) H 07/09/17 04:40 PT 64.2 Seconds (9.4-12.1) H* 07/17/17 04:31 INR 5.7 H* 07/17/17 04:31 APTT 56.0 Seconds (26.0-36.0) H 07/06/17 05:59 ABG pCO2 48 mmHg (35-45) H 07/15/17 19:10 ABG pO2 73 mmHg (85-104) L 07/15/17 19:10 ABG HCO3 33 mEq/L (21-27) H 07/15/17 19:10 ABG Total CO2 34 mEq/L (20-26) H 07/15/17 19:10 ABG Base Excess 7 mEq/L (-2 to 3) H 07/15/17 19:10 Carbon Dioxide 30 mEq/L (23-29) H 07/17/17 04:31 Glucose 217 mg/dL (70-105) H 07/17/17 04:31 POC Glucose 205 (58-89) H 07/17/17 08:09 Hemoglobin A1c 7.8 % (-5.6) H 07/08/17 00:55 Calcium 7.8 mg/dL (8.6-10.3) L 07/17/17 04:31 AST 8 Units/L (13-39) L 07/16/17 04:31 Alkaline Phosphatase 32 Units/L (34-104) L 07/16/17 04:31 Serum Total Protein 5.7 g/dL (6.4-8.9) L 07/16/17 04:31 Albumin 2.0 g/dL (3.5-5.7) L 07/16/17 04:31 Globulin 3.7 g/dL (2.4-3.5) H 07/16/17 04:31 Albumin/Globulin Ratio 0.5 (1.1-2.2) L 07/16/17 04:31 Cholesterol 210 mg/dL (< 200) H 07/06/17 05:59 LDL Cholesterol, Calc 145 mg/dL (0-99) H 07/06/17 05:59 HDL Cholesterol 38 mg/dL (40-59) L 07/06/17 05:59 Cholesterol/HDL Ratio 5.5 (0-4.9) H 07/06/17 05:59 Urine Blood Trace (Negative) H 07/15/17 13:20 Ur Leukocyte Esterase Trace (Negative) H 07/15/17 13:20 Urine Microscopic RBC 3-5 per hpf (0-3) H 07/15/17 13:20 Urine Microscopic WBC 3-5 per hpf (0-3) H 07/15/17 13:20 Ur Squamous Epith Cells Moderate per lpf (None-Few) H 07/15/17 13:20 Urine Yeast Few per hpf (None Seen) H 07/15/17 13:20 Ur Culture Indicated? YES (NO) A 07/15/17 13:20 Staphylococcus sp PCR DETECTED (Not Detect) A 01/15/18 07:56 Staph aureus (PCR) DETECTED (Not Detect) A 07/14/17 07:56 mecA-Methicil Res Gene DETECTED (Not Detect) A 07/14/17 07:56 Consult Discharge Plan - Plan Referrals: Barbra Juarez MD [Primary Care Provider] - Prince Wolf MD [Family Provider] -
[2017-07-17] MEDS ORDERED: 0.9 % Sodium Chloride 500 ML ONE (12:45)
--- NOTE | 2017-07-17 15:50 | Internal Med Progress Note ---
<Jimmy Ryan - Last Filed: 07/17/17 15:48> Date of Encounter: 07/17/17 Time of Encounter: 11:00 - Assessment and plan (1) MRSA bacteremia Current Visit: Yes Status: Acute Assessment and plan: - Persistent MRSA bacteremia. -Positive blood cultures on 07/09, 07/10, 07/12 for MRSA - Preliminary cultures drawn 07/14 show 1/2 growing MRSA - Has been on vancomycin with goal trough of 15, day 9 - No obvious source identified. - Urine culture mixed and inconclusive, CXR show bilateral consolidation suspicious of PNA, mass/likely lipoma of right medial thigh on MRI - Sacral decubitus ulcers being evaluated and changed per wound care - TTE and GILBERTO negative for vegetations for possible endocarditis. Recommend repeat GILBERTO in 7-10days if symptoms persist. - ID consulted, appreciate recommendations. - Febrile today at 100.7 axillary, HR 80, RR18, WBC of 10.3 - Altered mental status may be secondary to infection vs recent lacunar infarction - Ortho performed right hip bursitis aspiration yesterday, preliminary results negative. Plan - Continue vancomycin and await final results of blood cultures - Per infectious disease, draw repeat blood cultures 07/16/17 and if growth after 2 days may switch to daptomycin - We will add Zosyn coverage for possible aspiration pneumonia - Palliative consult today, code status changed to [id number] - Daily labs - ID consult - Contact precautions. - Abdominal/pelvis CT and chest CT for possible abscess pending. (2) Acute cerebral infarction Current Visit: Yes Status: Acute Assessment and plan: - Acute right thalamic lacunar infarct as seen on brain MRI on 07/08/17 for right leg weakness - Scattered bilateral small infarcts suggestive of emboli of cardiac or septic etiology. - Neurology following appreciate recommendations. - Left carotid stenosis of 60-79%. - Per daughter, pt is not at baseline mental status. May also be attributable to infection vs metabolic etiologies. - Repeat Brain MRI on 07/16/17 showed no acute changes from previous. Plan - Continue statin, aspirin - Pt/OT when able. - Infectious disease recommended reconsult neurology, following. - Management of AMS and determine if alternative etiologies are contributing - Not a candidate for aggressive measures at this time due to other medical conditions and severity of other acute conditions. (3) Supratherapeutic INR Current Visit: Yes Status: Acute Assessment and plan: - INR of 8.7 on admission. - Most recently 5.7 this AM Plan - Holding coumadin. Pharmacy to dose. - Give 5 vitamin K today due to possibility of necessary lumbar puncture, patient reported spit it up. - Will give 2 units of FFP today - Continue to monitor for signs of bleed. (4) Stage II pressure ulcer of buttock Current Visit: Yes Status: Acute Assessment and plan: per nursing. consult wound care. - Possible source of bacteremia. - Dressing changes. - Frequent bed turns. Qualifiers: Laterality: left Qualified Code(s): L89.322 - Pressure ulcer of left buttock, stage 2 (5) Altered mental status Current Visit: Yes Status: Acute Assessment and plan: - Etiology unclear at this time, likely multifactorial - Pain from femoral nerve compression vs acute cerebral infarct vs infectious vs pain vs possible psychological etiology Plan - Treat underlying infection. Currently on Zosyn and vancomycin - ABG unremarkable - Pain control - Ammonia level normal - Consult neurology. - Possible new baseline, consulted palliative care - Will add small dose of mirtazipine tonight. Qualifiers: Altered mental status type: unspecified Qualified Code(s): R41.82 - Altered mental status, unspecified (6) Lipoma Current Visit: Yes Status: Acute Assessment and plan: - MRI of the right femur showed a large 21.3 x 9.8 x 7.7 cm fat signal mass. Not exactly sure this is the cause of her issues. - Surgery consulted, no intervention for now per surgery service due to her other more acute medical issues. Plan - Unlikely surgical candidate - Due to nature of lipoma and size would likely have to remove entire lesion if this turns out to be the source of infection - MRI shows dense lesion which appears lobular. - Will monitor for now Qualifiers: Lipoma location: lower extremity Laterality: right Qualified Code(s): D17.23 - Benign lipomatous neoplasm of skin and subcutaneous tissue of right leg (7) Lumbar spinal stenosis Current Visit: Yes Status: Chronic Assessment and plan: Per CT scans. Has been seen by neurology. - No acute interventions while inpatient. - Pain control Qualifiers: Neurogenic claudication status: unspecified Qualified Code(s): M48.061 - Spinal stenosis, lumbar region without neurogenic claudication (8) Chronic kidney disease (CKD) stage G3a/A3, moderately decreased glomerular filtration rate (GFR) between 45-59 mL/min/1.73 square meter and albuminuria creatinine ratio greater than 300 mg/g Current Visit: Yes Status: Acute Assessment and plan: - Stage III per chart review. - BUN/Cr of 12/0.64this AM - Appears to be at baseline Plan - Monitor for fluid status - Avoid nephrotoxic agents - Continue vancomycin as benefit outweighs risk. Monitor and renally dose per pharmacy with goal trough of 15-20. (9) Anemia Current Visit: Yes Status: Acute Assessment and plan: - H/H of 7.6/25.1 this AM. Hgb of 7.5 yesterday - Likely a result of chronic disease, CKD III. Baseline 8-9 - Received 2 units during this admisssion - Unable to determine if symptomatic but has remained stable for past couple days Plan - Continue to monitor daily CBC - Transfuse as necessary Qualifiers: Anemia type: unspecified type Qualified Code(s): D64.9 - Anemia, unspecified (10) HCAP (healthcare-associated pneumonia) Current Visit: Yes Status: Acute Assessment and plan: - Concern for HCAP on CXR showing bilateral opacities - Aspiration coverage due to AMS - Febrile today at 100.7 axillary, no WBC. - Sputum cultures negative. Blood cultures as above. Strep and legionella negative. Plan - Continue vancomycin day 9, zosyn day 2. - Received 7 days of cefepime - Tylenol PRN fever. (11) Hypokalemia Current Visit: Yes Status: Acute Assessment and plan: Potassium of 3.5 this morning, 3.0 yesterday -Continue 75 mL per hour with 10 mEq of potassium - Continue to monitor. (12) DVT prophylaxis Current Visit: Yes Status: Acute Assessment and plan: Coumadin. Hold that for now as INR is supratherapeutic. - Time Spent With Patient 25 - 35 minutes - Subjective Interval history: Patient was seen and examined at bedside this morning. Pt is agitated, complaining of pain, with difficult to interpret language. Daughter, who is present at bedside, states that this has been common since her stroke on Friday, especially when she is in pain. No new complaints or questions today. Daughter states patient has had multiple bowel movements and appears to be mildly improving cognitively, as she called out her daughter's name. - Constitutional Vitals: Temp Pulse Resp BP Pulse Ox 98.7 F 74 18 128/57 94 07/17/17 13:12 07/17/17 13:12 07/17/17 13:12 07/17/17 13:12 07/17/17 13:12 General appearance: Present: cooperative, mild distress, pleasant, obese, answers questions appropriately Exam: Gen.: Vitals noted. No acute distress. AAOx0 HEENT: PERRL/EOMI, oropharynx clear, Normocephalic, atraumatic Cardiac: RRR, no murmur, +S1/S2 Pulmonary: CTA bilaterally, no wheezes, rales or rhonchi, equal chest expansion Abdomen: soft, nontender, BS noted, no guarding Back: Nontender throughout. MSK: ROM intact, no joint swelling noted Extremities: no BLE edema, nontender calf, no cyanosis or clubbing Neuro: A&Ox0. Difficult to assess due to mental status Psych: Appropriate mood and behavior Internal Medicine: Result - Labs CBC & Chem 7: 07/17/17 04:31 07/17/17 04:31 Labs: Short CBC 07/17/17 Range/Units 04:31 WBC 10.3 (4.3-11.1) K/mcL Hgb 7.6 L (11.5-15.4) g/dL Hct 25.1 L (35.3-44.9) % Plt Count 356 (140-400) K/mcL Neutrophils # 8.4 (1.6-8.9) K/mcL BMP 07/17/17 04:31 Sodium 139 Potassium 3.5 Chloride 103 Carbon Dioxide 30 H BUN 12 Creatinine 0.67 Glucose 217 H Calcium 7.8 L - ABG Interpretation ABG results: ABG ABG pH 7.44 pH Units (7.32-7.45) 07/15/17 19:10 ABG pCO2 48 mmHg (35-45) H 07/15/17 19:10 ABG pO2 73 mmHg (85-104) L 07/15/17 19:10 ABG O2 Saturation 95 % (95-98) 07/15/17 19:10 PT/INR, D-dimer PT 64.2 Seconds (9.4-12.1) H* 07/17/17 04:31 - Impressions Impressions Brain MRI 07/16/17 15:16 IMPRESSION: Motion degraded study. No significant change in small, acute infarcts in the bilateral mcdowell radiata and centrum semiovale, which may reflect acute, lacunar infarcts. No new infarct is seen. Mild chronic microvascular ischemic disease. D/ / 07/16/2017 19:30:50 Juan Jose Ojeda MD / [facility] Interpreting Provider: Juan Jose Ojeda MD Consult Discharge Plan - Plan Referrals: Barbra Juarez MD [Primary Care Provider] - Prince Wolf MD [Family Provider] - <Jc Thompson - Last Filed: 07/17/17 18:59> Date of Encounter: 07/17/17 - Assessment and plan (1) Thrush, oral Current Visit: Yes Status: Acute Assessment and plan: Antifungal (2) Acute metabolic encephalopathy Current Visit: Yes Status: Acute Assessment and plan: Persists. No new strokes noted. Very restless and in pain. (3) MRSA (methicillin resistant Staphylococcus aureus) infection Current Visit: Yes Status: Acute (4) MRSA bacteremia Current Visit: Yes Status: Acute (5) Cerebrovascular accident (CVA) due to bilateral embolism of anterior cerebral arteries Current Visit: Yes Status: Acute (6) Chronic kidney disease (CKD) stage G3a/A3, moderately decreased glomerular filtration rate (GFR) between 45-59 mL/min/1.73 square meter and albuminuria creatinine ratio greater than 300 mg/g Current Visit: Yes Status: Acute (7) CHF (congestive heart failure) Current Visit: Yes Status: Chronic Qualifiers: Congestive heart failure type: systolic Congestive heart failure chronicity : chronic Qualified Code(s): I50.22 - Chronic systolic (congestive) heart failure (8) Right hip pain Current Visit: Yes Status: Acute (9) COPD (chronic obstructive pulmonary disease) Current Visit: Yes Status: Chronic Qualifiers: COPD type: unspecified COPD Qualified Code(s): J44.9 - Chronic obstructive pulmonary disease, unspecified (10) Afib Current Visit: No Status: Chronic Qualifiers: Atrial fibrillation type: paroxysmal Qualified Code(s): I48.0 - Paroxysmal atrial fibrillation (11) CAD (coronary artery disease) Current Visit: No Status: Chronic Qualifiers: Coronary Disease-Associated Artery/Lesion type: [place] artery [place] vs. transplanted heart: [place] heart Associated angina: without angina Qualified Code(s): I25.10 - Atherosclerotic heart disease of [place] coronary artery without angina pectoris - Constitutional Vitals: Temp Pulse Resp BP Pulse Ox 98 F 69 16 109/56 94 07/17/17 15:16 07/17/17 15:16 07/17/17 15:16 07/17/17 15:16 07/17/17 15:16 Internal Medicine: Result - Labs CBC & Chem 7: 07/17/17 04:31 07/17/17 04:31 Labs: Short CBC 07/17/17 Range/Units 04:31 WBC 10.3 (4.3-11.1) K/mcL Hgb 7.6 L (11.5-15.4) g/dL Hct 25.1 L (35.3-44.9) % Plt Count 356 (140-400) K/mcL Neutrophils # 8.4 (1.6-8.9) K/mcL BMP 07/17/17 04:31 Sodium 139 Potassium 3.5 Chloride 103 Carbon Dioxide 30 H BUN 12 Creatinine 0.67 Glucose 217 H Calcium 7.8 L - ABG Interpretation ABG results: ABG ABG pH 7.44 pH Units (7.32-7.45) 07/15/17 19:10 ABG pCO2 48 mmHg (35-45) H 07/15/17 19:10 ABG pO2 73 mmHg (85-104) L 07/15/17 19:10 ABG O2 Saturation 95 % (95-98) 07/15/17 19:10 PT/INR, D-dimer PT 64.2 Seconds (9.4-12.1) H* 07/17/17 04:31 - Impressions Impressions Brain MRI 07/16/17 15:16 IMPRESSION: Motion degraded study. No significant change in small, acute infarcts in the bilateral mcdowell radiata and centrum semiovale, which may reflect acute, lacunar infarcts. No new infarct is seen. Mild chronic microvascular ischemic disease. D/ / 07/16/2017 19:30:50 Juan Jose Ojeda MD / [facility] Interpreting Provider: Juan Jose Ojeda MD Abdomen/Pelvis CT 07/17/17 17:00 IMPRESSION: Bilateral pleural effusions, large on the left and moderate to large on the right. Dense consolidations to bilateral lower lobes and to left upper lobe with complete collapse of left upper lobe felt most likely to relate to dependent/compressive atelectasis. Other etiologies are not entirely excluded to include infectious/inflammatory infiltrates and/or aspiration pneumonitis. Mild degree of smoothly marginated interlobular septal thickening to aerated portions of the lungs without significant ground-glass opacities may reflect mild interstitial edema or possibly atypical pneumonia. Cardiomegaly along with atherosclerosis to include coronary artery disease. Mild degree of ascites predominantly dependently within the pelvis, nonspecific but abnormal for a postmenopausal female. High attenuation material within the gallbladder which also appears mildly distended. This could reflect sludge, stones and/or vicarious excretion of contrast material. There may also be some trace pericholecystic fluid. Ultrasound may be of use for further evaluation. Colonic diverticulosis predominantly to sigmoid colon without evidence for diverticulitis. Nonspecific subcutaneous edema to the abdomen and pelvis as above. No focal fluid collections or soft tissue gas. D/ / 07/17/2017 18:01:01 [facility] T[facility]z [facility] Provider: Mayco Tamez MD Chest CT 07/17/17 17:00 IMPRESSION: Bilateral pleural effusions, large on the left and moderate to large on the right. Dense consolidations to bilateral lower lobes and to left upper lobe with complete collapse of left upper lobe felt most likely to relate to dependent/compressive atelectasis. Other etiologies are not entirely excluded to include infectious/inflammatory infiltrates and/or aspiration pneumonitis. Mild degree of smoothly marginated interlobular septal thickening to aerated portions of the lungs without significant ground-glass opacities may reflect mild interstitial edema or possibly atypical pneumonia. Cardiomegaly along with atherosclerosis to include coronary artery disease. Mild degree of ascites predominantly dependently within the pelvis, nonspecific but abnormal for a postmenopausal female. High attenuation material within the gallbladder which also appears mildly distended. This could reflect sludge, stones and/or vicarious excretion of contrast material. There may also be some trace pericholecystic fluid. Ultrasound may be of use for further evaluation. Colonic diverticulosis predominantly to sigmoid colon without evidence for diverticulitis. Nonspecific subcutaneous edema to the abdomen and pelvis as above. No focal fluid collections or soft tissue gas. D/ / 07/17/2017 18:01:01 Mayco Tamez MD / earl Interpreting Provider: Mayco Tamez MD - Attending Attestation I examined this patient and my medical decision-making was reviewed with the Resident Physician on 07/17/17. I agree with the documented findings, disposition and treatment plan as described except to the extent set forth below. Ms New is currently admitted for MRSA bacteremia and encephalopathy. She remains moderate to high risk due to potential for worsening clinical status. Ms New continues to be very restless and crying. No fever or chills. More crying when moved. Awaiting further blood cultures. Exam Alert but agitated and restless. Tearful Mucus membranes with thrush Heart not tachy Diminished lung sounds Abd soft Diffuse tenderness Increased pain with movement of R hip and palpation of R groin. I/P 1. MRSA bacteremia - further cultures pending 2. Encephalopathy 3. Yeast in urine - diflucan 4. Thrush - treat with antifungal CTs of chest and abd/pelvis today. ? gallbladder issue - ultrasound ordered Total body bone scan ordered to eval R hip more. Further diagnoses and plan as above.
[2017-07-17] MEDS: Vancomycin 1,500 MG in D5% in Water 250 ML IVPB SCH (17:00)
[2017-07-17] MEDS: *HR* FentaNYL PATCH 25 MCG PATCH TD SCH (18:00)
[2017-07-17] MEDS ORDERED: Fluconazole 100 MG/50 ML 100 MG/50 ML BAG IVPB ONE (19:00)
[2017-07-17] MEDS: Bisacodyl 10 MG RECTAL SUPPOSITORY RC SCH (22:02)
[2017-07-17] MEDS: Nystatin SUSP 5 ML UD.LIQ PO SCH (22:02)
[2017-07-17] MEDS: Mirtazapine 15 MG TABLET PO SCH (22:02)
[2017-07-17] MEDS ORDERED: 0.9 % Sodium Chloride 250 ML ONE (22:35)
[2017-07-18] MEDS: *HR* HYDROmorphone (PF) 1 MG/ML SYRINGE IVP PRN ×3 (00:10→09:43)
[2017-07-18] MEDS: Piperacillin/Tazobactam 3.375 GM/200 ML BAG IVPB SCH ×3 (02:34→16:05)
[2017-07-18] MEDS: *HR* LORazepam 2 MG/ML VIAL IVP PRN ×3 (03:47→13:05)
[2017-07-18 04:15] LABS: Basophils % 0.1 %; Eosinophils # 0.1 K/mcL (0.0-0.6); Eosinophils % 1.5 %; Hematocrit 23.9 % (35.3-44.9); Hemoglobin 7.2 g/dL (11.5-15.4); Immature Granulocytes % 0.8 % (0-4); Lymphocytes # 1.3 K/mcL (0.6-4.6); Lymphocytes % 14.3 %; Mean Corpuscular HGB Conc 30.1 g/dL (31.6-35.5); Mean Corpuscular Hemoglobin 27.8 pg (28.0-33.3); Mean Corpuscular Volume 92.3 fL (83.0-100.0); Mean Platelet Volume 9.3 fL (9.4-12.4); Monocytes # 0.6 K/mcL (0.0-1.3); Monocytes % 6.7 %; Neutrophils # 6.8 K/mcL (1.6-8.9); Platelet Count 364 K/mcL (140-400); Red Blood Count 2.59 M/mcL (3.82-4.97); Red Cell Distribution Width 16.2 % (11.5-14.5); Segmented Neutrophils % 76.6 %
[2017-07-18 04:46] LABS: BUN/Creatinine Ratio 16 (6-26); Blood Urea Nitrogen 12 mg/dL (8-23); Calcium 8.1 mg/dL (8.6-10.3); Carbon Dioxide 31 mEq/L (23-29); Chloride 104 mEq/L (98-107); Glucose 178 mg/dL (70-105); Osmolality,Calculated 294 (280-300); Sodium 140 mEq/L (136-145); eGFR For African Americans > 60 (> 60); eGFR For Non-African Americans > 60 (> 60)
[2017-07-18 05:33] LABS: INR 2.3; Prothrombin Time 24.8 Seconds (9.4-12.1)
[2017-07-18] MEDS: Insulin LISPRO 300 UNITS/3 ML VIAL SQ SCH ×4 (08:18→20:52)
[2017-07-18] MEDS: Nystatin SUSP 5 ML UD.LIQ PO SCH ×4 (09:43→20:51)
[2017-07-18] MEDS: *HR* Amiodarone 200 MG TABLET PO SCH (10:05)
[2017-07-18] MEDS: Nitroglycerin 0.4 MG PATCH.TD24 TD SCH (10:10)
--- NOTE | 2017-07-18 11:00 | Event Note ---
Date of Encounter: 07/18/17 Time of Encounter: 10:45 Patient is currently resting quietly with multiple family members at bedside. I did not disturb her today. Provided emotional support to family, they seem pleased that every effort has been taken to try and find answers related to pt condition. Afebrile today. Remains on IV Vanc. Review recent testing and D/ W Dr. Thompson. She continues vigilantly to discuss with specialists to find source of pt pain and infection. WIll continue to follow clinical course. Family states pain medications and Ativan are effective in keeping her calm and comfortable.
--- NOTE | 2017-07-18 11:51 | Infectious Disease Progress No ---
Date of Encounter: 07/18/17 Time of Encounter: 11:48 - Assessment and Plan (1) MRSA bacteremia Current Visit: Yes Status: Acute Causative organism: MRSA. Source not clear. The patient did have a femur MRI that showed moderate volume of fluid in the right greater trochanteric bursa, but no evidence of septic arthritis. Joint aspiration negative for septic arthritis as well. The patient had a CT of the chest, abdomen, and pelvis, as well as a nuclear medicine bone scan. No definitive source of the MRSA bacteremia, but the patient was noted to have significant bilateral pleural effusions. Additionally, review of the bone scan shows increased uptake in the right hip per the hospitalist team's review of the imaging. They are going to discuss further with radiology and let me know if there are any new plans. Blood cultures drawn 07/08/17 grew MRSA, 2/2 sets. Additional blood cultures drawn 07/09/17 were positive 2/2 sets as well. Repeat blood cultures drawn 07/10/17 x 1 set and 07/12/17 x 1 set are also positive. Additional blood cultures drawn 07/14/17 are positive 1/2 sets. Repeat blood cultures drawn 07/16/17 are NGTD x 2 sets. Additional blood cultures drawn 07/17/17 are pending x 2 sets. The patient has one major and one minor Modified Lindsay's Criteria. TTE negative for vegetations. No endocarditis stigmata noted on exam. GILBERTO negative. CODY of Vanc is 1, so it is unlikely that the patient is failing Vanc due to high CODY. Etiology of persistent bacteremia not clear, but the most recent set of blood cultures were drawn <48 hours after the patient had therapeutic Vanc trough, which could also be contributing to this. Most recent set of blood cultures are negative so far. Continue Vancomycin IV. Pharmacy to dose. Goal trough ~15. Vanc trough 17.6 07/15. Duration of treatment depends on the clinical picture. Monitor renal function and for drug toxicity and dose-adjust antibiotics. Avoid insertion of central venous access until blood cultures are negative x 48 hours. (2) Altered mental status Current Visit: Yes Status: Acute Likely secondary to acute lacunar infarct and worsened by infectious process and medications, but given that the patient's mental status is not improving, I am not sure that it is related to her bacteremia. CT head negative, but MRI of the brain showed multiple small infarcts in the bilateral mcdowell radiata and centrum semiovale compatible with bilateral acute lacunar infarcts. Neurology consulted. CT head and brain MRI repeated 07/16/17, but do not show any new findings. Marginally improved today. The patient appears in less distress this morning and nursing reported that the patient was somewhat coherent last night. Continue to monitor closely. Qualifiers: Altered mental status type: unspecified Qualified Code(s): R41.82 - Altered mental status, unspecified (3) Lacunar infarct, acute Current Visit: Yes Status: Acute (4) Lipoma Current Visit: Yes Status: Acute Location: Right thigh. CT scan of the right hip showed a partially visualized fat density mass in the psoterior aspect of the proximal right thigh with thin internal septations, most likely representing a lipoma or benign atypical lipomatous tumor. MRI of the right femur again showed findings consistent with lipoma vs. benign atypical lipomatous tumor with significant mass effect the hamstring musculature. 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 INR down to 2.4 today. Further workup and evaluation per the primary team. (6) Chronic kidney disease (CKD) stage G3a/A3, moderately decreased glomerular filtration rate (GFR) between 45-59 mL/min/1.73 square meter and albuminuria creatinine ratio greater than 300 mg/g Current Visit: Yes Status: Acute Serum creatinine normal at this time. Continue to trend. Dose-adjust antibiotics as needed. Avoid nephrotoxins as able. (7) Chronic pain syndrome Current Visit: Yes Status: Acute Patient has had multiple MRIs and CT scans of the cervical, lumbar, thoracic spine and hips which revealed degenerative arthritis with no acute infectious process. (8) Arthritis Current Visit: Yes Status: Acute (9) Diabetes mellitus type 2 in obese Current Visit: No Status: Chronic Recommend aggressive glucose monitoring and control. Management per the primary team. 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 There was also a moderate volume of fluid in the right greater trochanteric bursa. Ortho consulted and appreciate their recommendations. Status post right hip bursa aspiration. Did not appear to be pus. Gram stain and culture negative. Status post nuclear medicine bone scan that is concerning for increased uptake in the right hip and pelvis per the hospitalist team's review of the films. They are going to discuss with radiology to see if additional imaging is needed. Pain management per the primary team. (11) HCAP (healthcare-associated pneumonia) Current Visit: Yes Status: Acute CXR completed 07/08/17 showed findings suspicious for bibasilar atelectasis or PNA. Not sure if the patient truly has PNA or not. Currently on day 7 of Cefepime and received 1 day of Zosyn prior to switching to cefepime. Ct chest showed dense consolidations to the bilateral lower lobes and to the left upper love with complete collapse of the left upper lobe felt most likely related to dependent/compressive atelectasis. CT findings not indicative of PNA, but given the patient's altered mental status , she is at risk for silent aspiration. Continue Zosyn 3.375 grams IV Q8H (day 3) Duration of treatment depends on the clinical picture. (12) Crain catheter in place Current Visit: Yes Status: Acute Crain catheter placed on admission. Urine color and clarity removed since the crain was switched out. (13) Pleural effusion Current Visit: No Status: Acute Likely secondary to third-spacing. CT chest shows bilateral pleural effusions, large on the left and moderate to large on the right. Likely contributing to the patient's hypoxic episodes when her O2 comes off. Consider IR to drain. Does not appear infected, but recommend sending fluid for cell count with differential, protein, LDH, glucose, and gram stain with culture. - Subjective Interval history: Patient seen and examined. No acute events noted overnight. Patient continues to have AMS and cannot give me any ROS information other than she is in pain. Per family, the patient continues to be intermittently combative, but is currently resting quietly. She has been afebrile since yesterday. The patient's daughter said nursing staff reported the patient was more understandable overnight. She had a large BM yesterday morning. She has had little to no PO intake for several days. Infect Dis PN-Objective Data - Labs CBC & Chem 7: 07/18/17 04:00 07/18/17 04:00 Labs: Laboratory Results - last 24 hr 07/17/17 07/17/17 07/17/17 12:46 17:20 21:30 WBC RBC Hgb Hct MCV MCH MCHC RDW Plt Count MPV Immature Gran % Seg Neutrophils % Lymphocytes % Monocytes % Eosinophils % Basophils % Neutrophils # Lymphocytes # Monocytes # Eosinophils # Basophils # PT INR Sodium Potassium Chloride Carbon Dioxide BUN Creatinine Est GFR ( Amer) Est GFR (Non-Af Amer) BUN/Creatinine Ratio Glucose POC Glucose 162 H 154 H 182 H Calculated Osmolality Calcium 07/18/17 07/18/17 07/18/17 03:58 04:00 04:00 WBC 8.8 RBC 2.59 L Hgb 7.2 L Hct 23.9 L MCV 92.3 MCH 27.8 L MCHC 30.1 L RDW 16.2 H Plt Count 364 MPV 9.3 L Immature Gran % 0.8 Seg Neutrophils % 76.6 Lymphocytes % 14.3 Monocytes % 6.7 Eosinophils % 1.5 Basophils % 0.1 Neutrophils # 6.8 Lymphocytes # 1.3 Monocytes # 0.6 Eosinophils # 0.1 Basophils # 0.0 PT 24.8 H D INR 2.3 D Sodium 140 Potassium 3.0 L Chloride 104 Carbon Dioxide 31 H BUN 12 Creatinine 0.74 Est GFR ( Amer) > 60 Est GFR (Non-Af Amer) > 60 BUN/Creatinine Ratio 16 Glucose 178 H POC Glucose Calculated Osmolality 294 Calcium 8.1 L Cultures: Cultures 07/16/17 13:51 Blood Culture - Preliminary Peripheral Venipuncture No growth. 07/16/17 13:51 Blood Culture - Preliminary Peripheral Venipuncture No growth. 07/17/17 10:03 Blood Culture - Preliminary Peripheral Venipuncture No growth. 07/14/17 07:56 Blood Culture - Final Peripheral Venipuncture Methicillin Resistant S.aureus 07/15/17 13:20 Urine Culture - Preliminary Urine,Crain Port Yeast Species 07/14/17 17:59 Blood Culture - Preliminary Peripheral Venipuncture No growth. 07/15/17 11:27 Gram Stain - Final Left Hip 07/12/17 03:55 Blood Culture - Final Peripheral Venipuncture Methicillin Resistant S.aureus 07/10/17 14:13 Blood Culture - Final Peripheral Venipuncture Methicillin Resistant S.aureus 07/09/17 14:15 Blood Culture - Final Peripheral Venipuncture Methicillin Resistant S.aureus 07/09/17 14:15 Blood Culture - Final Peripheral Venipuncture Methicillin Resistant S.aureus 07/08/17 00:55 Blood Culture - Final Peripheral Venipuncture Methicillin Resistant S.aureus 07/08/17 00:55 Blood Culture - Final Peripheral Venipuncture Methicillin Resistant S.aureus 07/08/17 08:10 Legionella Antigen - Final Urine,Clean Catch 07/08/17 08:10 Streptococcus pneumoniae Antigen (M - Final Urine,Clean Catch Serology 07/17/17 07/15/17 07/14/17 Range/Units 09:15 13:20 07:56 Urine Color Yellow (Yellow) Urine Clarity Clear (Clear) Urine pH 6.0 (5.0-8.0) pH Units Ur Specific Abrams 1.011 (1.010-1.025) Urine Protein Negative (Neg-Trace) mg/dL Urine Glucose (UA) Normal (Normal) mg/dL Urine Ketones Negative (Negative) mg/dL Urine Blood Trace H (Negative) Urine Nitrite Negative (Negative) Urine Bilirubin Negative (Negative) Urine Urobilinogen Normal (Normal) mg/dL Ur Leukocyte Esterase Trace H (Negative) Urine Microscopic RBC 3-5 H (0-3) per hpf Urine Microscopic WBC 3-5 H (0-3) per hpf Ur Squamous Epith Cells Moderate H (None-Few) per lpf Urine Bacteria None Seen (None-Few) per hpf Hyaline Casts None Seen (None-Few) per lpf Urine Yeast Few H (None Seen) per hpf Ur Culture Indicated? YES A (NO) A. baumannii (PCR) Not Detected (Not Detect) Chlamy pneumoniae PCR Not Detected (Not Detect) Adenovirus (PCR) Not Detected (Not Detect) B. pertussis DNA (PCR) Not Detected (Not Detect) B.parapertussis DNA PCR Not Detected (Not Detect) Adelina albicans (PCR) Not Detected (Not Detect) C. glabrata (PCR) Not Detected (Not Detect) C. krusei (PCR) Not Detected (Not Detect) C. parapsilosis (PCR) Not Detected (Not Detect) C. tropicalis (PCR) Not Detected (Not Detect) Coronavirus OC43 (PCR) Not Detected (Not Detect) Coronavirus HKU1 (PCR) Not Detected (Not Detect) Coronavirus 229E (PCR) Not Detected (Not Detect) Coronavirus NL63 (PCR) Not Detected (Not Detect) Enterobacteriac sp PCR Not Detected (Not Detect) E. cloacae complex PCR Not Detected (Not Detect) Enterococcus sp PCR Not Detected (Not Detect) E. coli (PCR) Not Detected (Not Detect) H. influenzae (PCR) Not Detected (Not Detect) Human Metapneumovir PCR Not Detected (Not Detect) Influenza A (H1) PCR Not Detected (Not Detect) Influ A (H1N1/09) PCR Not Detected (Not Detect) Influenza A (H3) PCR Not Detected (Not Detect) Influenza A Untype (PCR) Not Detected (Not Detect) Influenza Type B (PCR) Not Detected (Not Detect) Klebsiella oxytoca PCR Not Detected (Not Detect) Klebsiella pneumoniae Not Detected (Not Detect) List. monocytogenes PCR Not Detected (Not Detect) M.pneumoniae DNA (PCR) Not Detected (Not Detect) N. meningitidis (PCR) Not Detected (Not Detect) Parainfluenza 1 (PCR) Not Detected (Not Detect) Parainfluenza 2 (PCR) Not Detected (Not Detect) Parainfluenza 3 (PCR) Not Detected (Not Detect) Parainfluenza 4 (PCR) Not Detected (Not Detect) Proteus species (PCR) Not Detected (Not Detect) RSV (PCR) Not Detected (Not Detect) Entero/Rhino (PCR) Not Detected (Not Detect) Serratia marcescens PCR Not Detected (Not Detect) Staphylococcus sp PCR DETECTED A (Not Detect) Staph aureus (PCR) DETECTED A (Not Detect) mecA-Methicil Res Gene DETECTED A (Not Detect) Streptococcus sp PCR Not Detected (Not Detect) Group A Strep DNA Not Detected (Not Detect) Group B Strep (PCR) Not Detected (Not Detect) Strep pneumoniae (PCR) Not Detected (Not Detect) P. aeruginosa (PCR) Not Detected (Not Detect) Alexa/B-Vanco Res Genes Not Detected (Not Detect) KPC (blaKPC) Detect PCR Not Detected (Not Detect) 07/09/17 07/09/17 07/08/17 Range/Units 14:15 14:15 08:10 Urine Color Dark Yellow (Yellow) Urine Clarity Cloudy A (Clear) Urine pH 6.0 (5.0-8.0) pH Units Ur Specific Abrams > 1.030 H (1.010-1.025) Urine Protein 100 H (Neg-Trace) mg/dL Urine Glucose (UA) Normal (Normal) mg/dL Urine Ketones Negative (Negative) mg/dL Urine Blood Trace H (Negative) Urine Nitrite Negative (Negative) Urine Bilirubin Small H (Negative) Urine Urobilinogen Normal (Normal) mg/dL Ur Leukocyte Esterase Negative (Negative) Urine Microscopic RBC 5-15 H (0-3) per hpf Urine Microscopic WBC 30-50 H (0-3) per hpf Ur Squamous Epith Cells Moderate H (None-Few) per lpf Urine Bacteria Few (None-Few) per hpf Hyaline Casts Few (None-Few) per lpf Urine Yeast Moderate H (None Seen) per hpf Ur Culture Indicated? NO (NO) A. baumannii (PCR) Not Detected Not Detected (Not Detect) Chlamy pneumoniae PCR (Not Detect) Adenovirus (PCR) (Not Detect) B. pertussis DNA (PCR) (Not Detect) B.parapertussis DNA PCR (Not Detect) Adelina albicans (PCR) Not Detected Not Detected (Not Detect) C. glabrata (PCR) Not Detected Not Detected (Not Detect) C. krusei (PCR) Not Detected Not Detected (Not Detect) C. parapsilosis (PCR) Not Detected Not Detected (Not Detect) C. tropicalis (PCR) Not Detected Not Detected (Not Detect) Coronavirus OC43 (PCR) (Not Detect) Coronavirus HKU1 (PCR) (Not Detect) Coronavirus 229E (PCR) (Not Detect) Coronavirus NL63 (PCR) (Not Detect) Enterobacteriac sp PCR Not Detected Not Detected (Not Detect) E. cloacae complex PCR Not Detected Not Detected (Not Detect) Enterococcus sp PCR Not Detected Not Detected (Not Detect) E. coli (PCR) Not Detected Not Detected (Not Detect) H. influenzae (PCR) Not Detected Not Detected (Not Detect) Human Metapneumovir PCR (Not Detect) Influenza A (H1) PCR (Not Detect) Influ A (H1N1/09) PCR (Not Detect) Influenza A (H3) PCR (Not Detect) Influenza A Untype (PCR) (Not Detect) Influenza Type B (PCR) (Not Detect) Klebsiella oxytoca PCR Not Detected Not Detected (Not Detect) Klebsiella pneumoniae Not Detected Not Detected (Not Detect) List. monocytogenes PCR Not Detected Not Detected (Not Detect) M.pneumoniae DNA (PCR) (Not Detect) N. meningitidis (PCR) Not Detected Not Detected (Not Detect) Parainfluenza 1 (PCR) (Not Detect) Parainfluenza 2 (PCR) (Not Detect) Parainfluenza 3 (PCR) (Not Detect) Parainfluenza 4 (PCR) (Not Detect) Proteus species (PCR) Not Detected Not Detected (Not Detect) RSV (PCR) (Not Detect) Entero/Rhino (PCR) (Not Detect) Serratia marcescens PCR Not Detected Not Detected (Not Detect) Staphylococcus sp PCR DETECTED A DETECTED A (Not Detect) Staph aureus (PCR) DETECTED A DETECTED A (Not Detect) mecA-Methicil Res Gene DETECTED A DETECTED A (Not Detect) Streptococcus sp PCR Not Detected Not Detected (Not Detect) Group A Strep DNA Not Detected Not Detected (Not Detect) Group B Strep (PCR) Not Detected Not Detected (Not Detect) Strep pneumoniae (PCR) Not Detected Not Detected (Not Detect) P. aeruginosa (PCR) Not Detected Not Detected (Not Detect) Alexa/B-Vanco Res Genes Not Detected N/A (Not Detect) KPC (blaKPC) Detect PCR Not Detected N/A (Not Detect) 07/08/17 Range/Units 00:55 Urine Color (Yellow) Urine Clarity (Clear) Urine pH (5.0-8.0) pH Units Ur Specific Abrams (1.010-1.025) Urine Protein (Neg-Trace) mg/dL Urine Glucose (UA) (Normal) mg/dL Urine Ketones (Negative) mg/dL Urine Blood (Negative) Urine Nitrite (Negative) Urine Bilirubin (Negative) Urine Urobilinogen (Normal) mg/dL Ur Leukocyte Esterase (Negative) Urine Microscopic RBC (0-3) per hpf Urine Microscopic WBC (0-3) per hpf Ur Squamous Epith Cells (None-Few) per lpf Urine Bacteria (None-Few) per hpf Hyaline Casts (None-Few) per lpf Urine Yeast (None Seen) per hpf Ur Culture Indicated? (NO) A. baumannii (PCR) Not Detected (Not Detect) Chlamy pneumoniae PCR (Not Detect) Adenovirus (PCR) (Not Detect) B. pertussis DNA (PCR) (Not Detect) B.parapertussis DNA PCR (Not Detect) Adelina albicans (PCR) Not Detected (Not Detect) C. glabrata (PCR) Not Detected (Not Detect) C. krusei (PCR) Not Detected (Not Detect) C. parapsilosis (PCR) Not Detected (Not Detect) C. tropicalis (PCR) Not Detected (Not Detect) Coronavirus OC43 (PCR) (Not Detect) Coronavirus HKU1 (PCR) (Not Detect) Coronavirus 229E (PCR) (Not Detect) Coronavirus NL63 (PCR) (Not Detect) Enterobacteriac sp PCR Not Detected (Not Detect) E. cloacae complex PCR Not Detected (Not Detect) Enterococcus sp PCR Not Detected (Not Detect) E. coli (PCR) Not Detected (Not Detect) H. influenzae (PCR) Not Detected (Not Detect) Human Metapneumovir PCR (Not Detect) Influenza A (H1) PCR (Not Detect) Influ A (H1N1/09) PCR (Not Detect) Influenza A (H3) PCR (Not Detect) Influenza A Untype (PCR) (Not Detect) Influenza Type B (PCR) (Not Detect) Klebsiella oxytoca PCR Not Detected (Not Detect) Klebsiella pneumoniae Not Detected (Not Detect) List. monocytogenes PCR Not Detected (Not Detect) M.pneumoniae DNA (PCR) (Not Detect) N. meningitidis (PCR) Not Detected (Not Detect) Parainfluenza 1 (PCR) (Not Detect) Parainfluenza 2 (PCR) (Not Detect) Parainfluenza 3 (PCR) (Not Detect) Parainfluenza 4 (PCR) (Not Detect) Proteus species (PCR) Not Detected (Not Detect) RSV (PCR) (Not Detect) Entero/Rhino (PCR) (Not Detect) Serratia marcescens PCR Not Detected (Not Detect) Staphylococcus sp PCR DETECTED A (Not Detect) Staph aureus (PCR) DETECTED A (Not Detect) mecA-Methicil Res Gene DETECTED A (Not Detect) Streptococcus sp PCR Not Detected (Not Detect) Group A Strep DNA Not Detected (Not Detect) Group B Strep (PCR) Not Detected (Not Detect) Strep pneumoniae (PCR) Not Detected (Not Detect) P. aeruginosa (PCR) Not Detected (Not Detect) Alexa/B-Vanco Res Genes Not Detected (Not Detect) KPC (blaKPC) Detect PCR Not Detected (Not Detect) - Impressions Impressions Abdomen/Pelvis CT 07/17/17 17:00 IMPRESSION: Bilateral pleural effusions, large on the left and moderate to large on the right. Dense consolidations to bilateral lower lobes and to left upper lobe with complete collapse of left upper lobe felt most likely to relate to dependent/compressive atelectasis. Other etiologies are not entirely excluded to include infectious/inflammatory infiltrates and/or aspiration pneumonitis. Mild degree of smoothly marginated interlobular septal thickening to aerated portions of the lungs without significant ground-glass opacities may reflect mild interstitial edema or possibly atypical pneumonia. Cardiomegaly along with atherosclerosis to include coronary artery disease. Mild degree of ascites predominantly dependently within the pelvis, nonspecific but abnormal for a postmenopausal female. High attenuation material within the gallbladder which also appears mildly distended. This could reflect sludge, stones and/or vicarious excretion of contrast material. There may also be some trace pericholecystic fluid. Ultrasound may be of use for further evaluation. Colonic diverticulosis predominantly to sigmoid colon without evidence for diverticulitis. Nonspecific subcutaneous edema to the abdomen and pelvis as above. No focal fluid collections or soft tissue gas. D/ / 07/17/2017 18:01:01 Mayco Tamez MD / [facility] Interpreting Provider: Mayco Tamez MD Chest CT 07/17/17 17:00 IMPRESSION: Bilateral pleural effusions, large on the left and moderate to large on the right. Dense consolidations to bilateral lower lobes and to left upper lobe with complete collapse of left upper lobe felt most likely to relate to dependent/compressive atelectasis. Other etiologies are not entirely excluded to include infectious/inflammatory infiltrates and/or aspiration pneumonitis. Mild degree of smoothly marginated interlobular septal thickening to aerated portions of the lungs without significant ground-glass opacities may reflect mild interstitial edema or possibly atypical pneumonia. Cardiomegaly along with atherosclerosis to include coronary artery disease. Mild degree of ascites predominantly dependently within the pelvis, nonspecific but abnormal for a postmenopausal female. High attenuation material within the gallbladder which also appears mildly distended. This could reflect sludge, stones and/or vicarious excretion of contrast material. There may also be some trace pericholecystic fluid. Ultrasound may be of use for further evaluation. Colonic diverticulosis predominantly to sigmoid colon without evidence for diverticulitis. Nonspecific subcutaneous edema to the abdomen and pelvis as above. No focal fluid collections or soft tissue gas. D/ / 07/17/2017 18:01:01 Mayco Tamez MD / [facility] Interpreting Provider: Mayco Tamez MD Bone Scan Nuclear Medicine 07/17/17 18:04 IMPRESSION: 1. Degenerative uptake. The patient is rotated, resulting in apparent asymmetries in the hips and shoulders, most likely positional differences. 2. There is mild asymmetric increased uptake in the left knee compared to the right. This could be degenerative. D/ / Gus Thomas MD / Gus Thomas MD Interpreting Provider: Gus Thomas MD Gallbladder Ultrasound 07/18/17 09:00 IMPRESSION: Sludge and several small stones seen within the gallbladder with mild gallbladder wall thickening. The patient did not have a positive sonographic Coyle's sign. There is no definitive evidence for acute cholecystitis. If further evaluation is needed, recommend HIDA scan. D/ / 07/18/2017 09:03:33 Wai Andrade MD / [facility] Interpreting Provider: Wai Andrade MD Exam - Constitutional Vitals: Temp Pulse Resp BP Pulse Ox 98.9 F 84 16 133/91 94 07/18/17 11:12 07/18/17 11:12 07/18/17 11:12 07/18/17 11:12 07/18/17 11:12 General appearance: no acute distress, obese, no febrile - Head Head exam: Present: atraumatic, normal inspection, normocephalic - Eye Eye exam: Present: normal appearance, PERRL Pupils: Present: normal accommodation - ENT ENT exam: Present: mucous membranes dry - Neck Neck exam: Present: normal inspection - Respiratory Respiratory exam: Present: decreased breath sounds (Throughout, poor respiratory effort due to patient sleeping.) - Cardiovascular Cardiovascular exam: Present: RRR, +S1, +S2 - GI/Abdominal GI/Abdominal exam: Present: distended (obese), normal bowel sounds, soft Additional comments: Crain catheter noted to be draining clear yellow urine. - Extremities Exam Extremities exam: Present: pedal edema (Trace BLE) Additional comments: Patient sleeping for the first time since yesterday. Did not disturb to perform MSK assessment. - Skin Skin exam: Present: dry, intact, normal color, warm Consult Discharge Plan - Plan Referrals: Barbra Juarez MD [Primary Care Provider] - Prince Wolf MD [Family Provider] -
--- NOTE | 2017-07-18 15:30 | Internal Med Progress Note ---
<Jimmy Ryan - Last Filed: 07/18/17 15:22> Date of Encounter: 07/18/17 Time of Encounter: 09:30 - Assessment and plan (1) MRSA bacteremia Current Visit: Yes Status: Acute Assessment and plan: - Persistent MRSA bacteremia. -Positive blood cultures on 07/09, 07/10, 07/12 for MRSA - Preliminary cultures drawn 07/14 show 1/2 growing MRSA - Blood cultures drawn on 07/16 and 07/17 preliminary no growth - Has been on vancomycin with goal trough of 15, day 10 - No obvious source identified. - Urine culture mixed and inconclusive, CXR show bilateral consolidation suspicious of PNA, mass/likely lipoma of right medial thigh on MRI - Sacral decubitus ulcers being evaluated and changed per wound care - TTE and GILBERTO negative for vegetations for possible endocarditis. Recommend repeat GILBERTO in 7-10days if symptoms persist. - ID consulted, appreciate recommendations. - Febrile today at temperature of 99.1 axillary, otherwise vitals unremarkable. No white count - Altered mental status may be secondary to infection vs recent lacunar infarction - Ortho performed right hip bursitis aspiration yesterday, preliminary results negative. - CT scan results yesterday showing bilateral pleural effusions, interlobular septal thickening of lungs with ground glass opacities, mild ascites, high attenuation material within the gallbladder with mild distention, colonic diverticulosis without diverticulitis. -Bone scan revealed degenerative uptake of right hip possibly degenerative in nature versus infectious. - Gallbladder ultrasound showing sludge and several small stones without obvious evidence of cholecystitis and a negative Coyle sign. Plan - Continue vancomycin and await final results of blood cultures - Per infectious disease, draw repeat blood cultures 07/16/17 and if growth after 2 days may switch to daptomycin - Continue Zosyn coverage for possible aspiration pneumonia - Palliative consulted, code status changed to [id number] - Daily labs - ID consult - Contact precautions. - After speaking with nuclear medicine, we will pursue indium WBC scan to futher evalutate right hip but must wait until friday for Tc to clear system from bone scan (2) Acute cerebral infarction Current Visit: Yes Status: Acute Assessment and plan: - Acute right thalamic lacunar infarct as seen on brain MRI on 07/08/17 for right leg weakness - Scattered bilateral small infarcts suggestive of emboli of cardiac or septic etiology. - Neurology following appreciate recommendations. - Left carotid stenosis of 60-79%. - Per daughter, pt is not at baseline mental status. May also be attributable to infection vs metabolic etiologies. - Repeat Brain MRI on 07/16/17 showed no acute changes from previous. Plan - Continue statin, aspirin - Pt/OT when able. - Infectious disease recommended reconsult neurology, following. - Management of AMS and determine if alternative etiologies are contributing - Not a candidate for aggressive measures at this time due to other medical conditions and severity of other acute conditions. (3) Supratherapeutic INR Current Visit: Yes Status: Acute Assessment and plan: - INR of 8.7 on admission. - Most recently 2.3 this AM after receiving 2 units of fresh frozen plasma yesterday Plan - Holding coumadin. Pharmacy to dose. - Continue to monitor for signs of bleed. (4) Stage II pressure ulcer of buttock Current Visit: Yes Status: Acute Assessment and plan: per nursing. consult wound care. - Possible source of bacteremia. - Dressing changes. - Frequent bed turns. Qualifiers: Laterality: left Qualified Code(s): L89.322 - Pressure ulcer of left buttock, stage 2 (5) Altered mental status Current Visit: Yes Status: Acute Assessment and plan: - Etiology unclear at this time, likely multifactorial - Pain from femoral nerve compression vs acute cerebral infarct vs infectious vs pain vs possible psychological etiology Plan - Treat underlying infection. Currently on Zosyn and vancomycin - ABG unremarkable - Pain control - Ammonia level normal - Consult neurology. - Possible new baseline, consulted palliative care - Continue mirtazipine tonight. Qualifiers: Altered mental status type: unspecified Qualified Code(s): R41.82 - Altered mental status, unspecified (6) Lipoma Current Visit: Yes Status: Acute Assessment and plan: - MRI of the right femur showed a large 21.3 x 9.8 x 7.7 cm fat signal mass. Not exactly sure this is the cause of her issues. - Surgery consulted, no intervention for now per surgery service due to her other more acute medical issues. Plan - Unlikely surgical candidate - Due to nature of lipoma and size would likely have to remove entire lesion if this turns out to be the source of infection - MRI shows dense lesion which appears lobular. - Will monitor for now Qualifiers: Lipoma location: lower extremity Laterality: right Qualified Code(s): D17.23 - Benign lipomatous neoplasm of skin and subcutaneous tissue of right leg (7) Lumbar spinal stenosis Current Visit: Yes Status: Chronic Assessment and plan: Per CT scans. Has been seen by neurology. - No acute interventions while inpatient. - Pain control Qualifiers: Neurogenic claudication status: unspecified Qualified Code(s): M48.061 - Spinal stenosis, lumbar region without neurogenic claudication (8) Chronic kidney disease (CKD) stage G3a/A3, moderately decreased glomerular filtration rate (GFR) between 45-59 mL/min/1.73 square meter and albuminuria creatinine ratio greater than 300 mg/g Current Visit: Yes Status: Acute Assessment and plan: - Stage III per chart review. - BUN/Cr of 12/0.74 this AM - Appears to be at baseline Plan - Monitor for fluid status - Avoid nephrotoxic agents - Continue vancomycin as benefit outweighs risk. Monitor and renally dose per pharmacy with goal trough of 15-20. (9) Anemia Current Visit: Yes Status: Acute Assessment and plan: - H/H of 7.2/23.9 this AM. Hgb of 7.6 yesterday - Likely a result of chronic disease, CKD III. Baseline 8-9 - Received 2 units during this admisssion - Unable to determine if symptomatic but has remained stable for past couple days Plan - Continue to monitor daily CBC - Transfuse as necessary Qualifiers: Anemia type: unspecified type Qualified Code(s): D64.9 - Anemia, unspecified (10) HCAP (healthcare-associated pneumonia) Current Visit: Yes Status: Acute Assessment and plan: - Concern for HCAP on CXR showing bilateral opacities - Aspiration coverage due to AMS - Febrile today at 99.1 axillary, no WBC. - Sputum cultures negative. Blood cultures as above. Strep and legionella negative. Plan - Continue vancomycin day 10, zosyn day 3. - Received 7 days of cefepime - Tylenol PRN fever. (11) Hypokalemia Current Visit: Yes Status: Acute Assessment and plan: Potassium of 3.0 this morning, 3.5 yesterday -Received 40 mEq of potassium this morning - Continue to monitor. (12) DVT prophylaxis Current Visit: Yes Status: Acute Assessment and plan: Coumadin. Hold that for now as INR is supratherapeutic. - Time Spent With Patient 25 - 35 minutes - Subjective Interval history: Patient was seen and examined at bedside this morning. Pt is agitated, complaining of pain, with difficult to interpret language. Daughter, who is present at bedside, states that this has been common since her stroke on Friday, especially when she is in pain. No new complaints or questions today. Patient is slightly more understandable this morning however language is still not able to be interpreted by this physician. - Constitutional Vitals: Temp Pulse Resp BP Pulse Ox 98.9 F 84 16 133/91 94 07/18/17 11:12 07/18/17 11:12 07/18/17 11:12 07/18/17 11:12 07/18/17 11:12 General appearance: Present: cooperative, mild distress, pleasant, obese, answers questions appropriately Exam: Gen.: Vitals noted. No acute distress. AAOx3. Morbidly obese, moaning in pain. HEENT: PERRL/EOMI, oropharynx clear, Normocephalic, atraumatic Cardiac: RRR, no murmur, +S1/S2 Pulmonary: CTA bilaterally, no wheezes, rales or rhonchi, equal chest expansion. Abdomen: soft, no physical grimacing on palpation of abdomen, BS noted, no guarding MSK: ROM intact, no joint swelling noted Extremities: no BLE edema, nontender calf, no cyanosis or clubbing Neuro: A&Ox3, moves all extremities, no focal deficits Psych: Appropriate mood and behavior Internal Medicine: Result - Labs CBC & Chem 7: 07/18/17 04:00 07/18/17 04:00 Labs: Short CBC 07/18/17 Range/Units 04:00 WBC 8.8 (4.3-11.1) K/mcL Hgb 7.2 L (11.5-15.4) g/dL Hct 23.9 L (35.3-44.9) % Plt Count 364 (140-400) K/mcL Neutrophils # 6.8 (1.6-8.9) K/mcL BMP 07/18/17 04:00 Sodium 140 Potassium 3.0 L Chloride 104 Carbon Dioxide 31 H BUN 12 Creatinine 0.74 Glucose 178 H Calcium 8.1 L - ABG Interpretation ABG results: ABG ABG pH 7.44 pH Units (7.32-7.45) 07/15/17 19:10 ABG pCO2 48 mmHg (35-45) H 07/15/17 19:10 ABG pO2 73 mmHg (85-104) L 07/15/17 19:10 ABG O2 Saturation 95 % (95-98) 07/15/17 19:10 PT/INR, D-dimer PT 24.8 Seconds (9.4-12.1) H D 07/18/17 03:58 - Impressions Impressions Abdomen/Pelvis CT 07/17/17 17:00 IMPRESSION: Bilateral pleural effusions, large on the left and moderate to large on the right. Dense consolidations to bilateral lower lobes and to left upper lobe with complete collapse of left upper lobe felt most likely to relate to dependent/compressive atelectasis. Other etiologies are not entirely excluded to include infectious/inflammatory infiltrates and/or aspiration pneumonitis. Mild degree of smoothly marginated interlobular septal thickening to aerated portions of the lungs without significant ground-glass opacities may reflect mild interstitial edema or possibly atypical pneumonia. Cardiomegaly along with atherosclerosis to include coronary artery disease. Mild degree of ascites predominantly dependently within the pelvis, nonspecific but abnormal for a postmenopausal female. High attenuation material within the gallbladder which also appears mildly distended. This could reflect sludge, stones and/or vicarious excretion of contrast material. There may also be some trace pericholecystic fluid. Ultrasound may be of use for further evaluation. Colonic diverticulosis predominantly to sigmoid colon without evidence for diverticulitis. Nonspecific subcutaneous edema to the abdomen and pelvis as above. No focal fluid collections or soft tissue gas. D/ / 07/17/2017 18:01:01 [facility] Provider: Mayco Tamez MD Chest CT 07/17/17 17:00 IMPRESSION: Bilateral pleural effusions, large on the left and moderate to large on the right. Dense consolidations to bilateral lower lobes and to left upper lobe with complete collapse of left upper lobe felt most likely to relate to dependent/compressive atelectasis. Other etiologies are not entirely excluded to include infectious/inflammatory infiltrates and/or aspiration pneumonitis. Mild degree of smoothly marginated interlobular septal thickening to aerated portions of the lungs without significant ground-glass opacities may reflect mild interstitial edema or possibly atypical pneumonia. Cardiomegaly along with atherosclerosis to include coronary artery disease. Mild degree of ascites predominantly dependently within the pelvis, nonspecific but abnormal for a postmenopausal female. High attenuation material within the gallbladder which also appears mildly distended. This could reflect sludge, stones and/or vicarious excretion of contrast material. There may also be some trace pericholecystic fluid. Ultrasound may be of use for further evaluation. Colonic diverticulosis predominantly to sigmoid colon without evidence for diverticulitis. Nonspecific subcutaneous edema to the abdomen and pelvis as above. No focal fluid collections or soft tissue gas. D/ / 07/17/2017 18:01:01 [facility] Provider: Mayco Tamez MD Bone Scan Nuclear Medicine 07/17/17 18:04 IMPRESSION: 1. Degenerative uptake. The patient is rotated, resulting in apparent asymmetries in the hips and shoulders, most likely positional differences. 2. There is mild asymmetric increased uptake in the left knee compared to the right. This could be degenerative. D/ / Gus Thomas MD / Gus Thomas MD Interpreting Provider: Gus Thomas MD Gallbladder Ultrasound 07/18/17 09:00 IMPRESSION: Sludge and several small stones seen within the gallbladder with mild gallbladder wall thickening. The patient did not have a positive sonographic Coyle's sign. There is no definitive evidence for acute cholecystitis. If further evaluation is needed, recommend HIDA scan. D/ / 07/18/2017 09:03:33 Wai Andrade MD / [facility] Interpreting Provider: Wai Andrade MD Consult Discharge Plan - Plan Referrals: Barbra Juarez MD [Primary Care Provider] - Prince Wolf MD [Family Provider] - <Jc Thompson - Last Filed: 07/18/17 17:35> Date of Encounter: 01/19/18 - Assessment and plan (1) Acute metabolic encephalopathy Current Visit: Yes Status: Acute (2) MRSA (methicillin resistant Staphylococcus aureus) infection Current Visit: Yes Status: Acute (3) Thrush, oral Current Visit: Yes Status: Acute (4) MRSA bacteremia Current Visit: Yes Status: Acute (5) Cerebrovascular accident (CVA) due to bilateral embolism of anterior cerebral arteries Current Visit: Yes Status: Acute (6) Chronic kidney disease (CKD) stage G3a/A3, moderately decreased glomerular filtration rate (GFR) between 45-59 mL/min/1.73 square meter and albuminuria creatinine ratio greater than 300 mg/g Current Visit: Yes Status: Acute (7) CHF (congestive heart failure) Current Visit: Yes Status: Chronic Qualifiers: Congestive heart failure type: systolic Congestive heart failure chronicity : chronic Qualified Code(s): I50.22 - Chronic systolic (congestive) heart failure (8) Right hip pain Current Visit: Yes Status: Acute (9) COPD (chronic obstructive pulmonary disease) Current Visit: Yes Status: Chronic Qualifiers: COPD type: unspecified COPD Qualified Code(s): J44.9 - Chronic obstructive pulmonary disease, unspecified (10) Afib Current Visit: No Status: Chronic Qualifiers: Atrial fibrillation type: paroxysmal Qualified Code(s): I48.0 - Paroxysmal atrial fibrillation (11) CAD (coronary artery disease) Current Visit: No Status: Chronic Qualifiers: Coronary Disease-Associated Artery/Lesion type: [place] artery [place] vs. transplanted heart: [place] heart Associated angina: without angina Qualified Code(s): I25.10 - Atherosclerotic heart disease of [place] coronary artery without angina pectoris - Constitutional Vitals: Temp Pulse Resp BP Pulse Ox 99.3 F 72 16 130/74 95 07/18/17 16:12 07/18/17 16:12 07/18/17 16:12 07/18/17 16:12 07/18/17 16:12 Internal Medicine: Result - Labs CBC & Chem 7: 07/18/17 04:00 07/18/17 04:00 Labs: Short CBC 07/18/17 Range/Units 04:00 WBC 8.8 (4.3-11.1) K/mcL Hgb 7.2 L (11.5-15.4) g/dL Hct 23.9 L (35.3-44.9) % Plt Count 364 (140-400) K/mcL Neutrophils # 6.8 (1.6-8.9) K/mcL BMP 07/18/17 04:00 Sodium 140 Potassium 3.0 L Chloride 104 Carbon Dioxide 31 H BUN 12 Creatinine 0.74 Glucose 178 H Calcium 8.1 L - ABG Interpretation ABG results: ABG ABG pH 7.44 pH Units (7.32-7.45) 07/15/17 19:10 ABG pCO2 48 mmHg (35-45) H 07/15/17 19:10 ABG pO2 73 mmHg (85-104) L 07/15/17 19:10 ABG O2 Saturation 95 % (95-98) 07/15/17 19:10 PT/INR, D-dimer PT 24.8 Seconds (9.4-12.1) H D 07/18/17 03:58 - Impressions Impressions Abdomen/Pelvis CT 07/17/17 17:00 IMPRESSION: Bilateral pleural effusions, large on the left and moderate to large on the right. Dense consolidations to bilateral lower lobes and to left upper lobe with complete collapse of left upper lobe felt most likely to relate to dependent/compressive atelectasis. Other etiologies are not entirely excluded to include infectious/inflammatory infiltrates and/or aspiration pneumonitis. Mild degree of smoothly marginated interlobular septal thickening to aerated portions of the lungs without significant ground-glass opacities may reflect mild interstitial edema or possibly atypical pneumonia. Cardiomegaly along with atherosclerosis to include coronary artery disease. Mild degree of ascites predominantly dependently within the pelvis, nonspecific but abnormal for a postmenopausal female. High attenuation material within the gallbladder which also appears mildly distended. This could reflect sludge, stones and/or vicarious excretion of contrast material. There may also be some trace pericholecystic fluid. Ultrasound may be of use for further evaluation. Colonic diverticulosis predominantly to sigmoid colon without evidence for diverticulitis. Nonspecific subcutaneous edema to the abdomen and pelvis as above. No focal fluid collections or soft tissue gas. D/ / 07/17/2017 18:01:01 Mayco Tamez MD / [facility] Interpreting Provider: Mayco Tamez MD Chest CT 07/17/17 17:00 IMPRESSION: Bilateral pleural effusions, large on the left and moderate to large on the right. Dense consolidations to bilateral lower lobes and to left upper lobe with complete collapse of left upper lobe felt most likely to relate to dependent/compressive atelectasis. Other etiologies are not entirely excluded to include infectious/inflammatory infiltrates and/or aspiration pneumonitis. Mild degree of smoothly marginated interlobular septal thickening to aerated portions of the lungs without significant ground-glass opacities may reflect mild interstitial edema or possibly atypical pneumonia. Cardiomegaly along with atherosclerosis to include coronary artery disease. Mild degree of ascites predominantly dependently within the pelvis, nonspecific but abnormal for a postmenopausal female. High attenuation material within the gallbladder which also appears mildly distended. This could reflect sludge, stones and/or vicarious excretion of contrast material. There may also be some trace pericholecystic fluid. Ultrasound may be of use for further evaluation. Colonic diverticulosis predominantly to sigmoid colon without evidence for diverticulitis. Nonspecific subcutaneous edema to the abdomen and pelvis as above. No focal fluid collections or soft tissue gas. D/ / 07/17/2017 18:01:01 Mayco Tamez MD / [facility] Interpreting Provider: Mayco Tamez MD Bone Scan Nuclear Medicine 07/17/17 18:04 IMPRESSION: 1. Degenerative uptake. The patient is rotated, resulting in apparent asymmetries in the hips and shoulders, most likely positional differences. 2. There is mild asymmetric increased uptake in the left knee compared to the right. This could be degenerative. D/ / Gus Thomas MD / Gus Thomas MD Interpreting Provider: Gus Thomas MD Gallbladder Ultrasound 07/18/17 09:00 IMPRESSION: Sludge and several small stones seen within the gallbladder with mild gallbladder wall thickening. The patient did not have a positive sonographic Coyle's sign. There is no definitive evidence for acute cholecystitis. If further evaluation is needed, recommend HIDA scan. D/ / 07/18/2017 09:03:33 Wai Andrade MD / [facility] Interpreting Provider: Wai Andrade MD - Attending Attestation I examined this patient and my medical decision-making was reviewed with the Resident Physician on 07/18/17. I agree with the documented findings, disposition and treatment plan as described except to the extent set forth below. Ms New is currently admitted for recurrent MRSA bacteremia and encephalopathy. She remains moderate to high risk due to potential for worsening clinical status. Ms New seems less distressed today. She was more understandable overnight. Still with a lot of pain on R side of leg. No further fever. Exam Alert. Agitated and tearful Mucus membranes dry Heart not tachy Decreased lung sounds Abd soft Continued discomfort with palpathion R side of leg I/P 1. MRSA bacteremia 2. R leg pain. Gallbladder US shows some sludge. No clear cholecystitis. Will hold off on HIDA for now. Bone scan with R hip uptake and degenerative changes. Tagged WBC scan ordered per rec of radiology but cannot be done till Friday. Pain seems little better today - appears Fentanyl patch had been removed (? MRI) . New patch yesterday and seems more comfortable. Continue patch and PRN meds. Daughter updated this AM Further diagnoses and plan as above.
[2017-07-18] MEDS: Vancomycin 1,500 MG in D5% in Water 250 ML IVPB SCH (16:15)
[2017-07-18] MEDS: Silvasorb 44.4 ML TUBE TP SCH (16:16)
[2017-07-18] MEDS: Fluconazole 100 MG/50 ML 100 MG/50 ML BAG IVPB SCH (19:31)
[2017-07-18] MEDS: Bisacodyl 10 MG RECTAL SUPPOSITORY RC SCH (20:50)
[2017-07-18] MEDS: Mirtazapine 15 MG TABLET PO SCH (20:51)
[2017-07-19] MEDS: Piperacillin/Tazobactam 3.375 GM/200 ML BAG IVPB SCH ×3 (00:01→20:20)
[2017-07-19] MEDS: *HR* HYDROmorphone (PF) 1 MG/ML SYRINGE IVP PRN ×6 (03:35→18:46)
[2017-07-19] MEDS: *HR* LORazepam 2 MG/ML VIAL IVP PRN ×3 (04:16→20:21)
[2017-07-19 05:23] LABS: Basophils % 0.4 %; Eosinophils # 0.1 K/mcL (0.0-0.6); Hematocrit 23.3 % (35.3-44.9); Hemoglobin 7.3 g/dL (11.5-15.4); Immature Granulocytes % 0.5 % (0-4); Lymphocytes % 12.1 %; Mean Corpuscular HGB Conc 31.3 g/dL (31.6-35.5); Mean Corpuscular Hemoglobin 28.9 pg (28.0-33.3); Mean Corpuscular Volume 92.1 fL (83.0-100.0); Mean Platelet Volume 9.3 fL (9.4-12.4); Monocytes # 0.5 K/mcL (0.0-1.3); Monocytes % 6.5 %; Neutrophils # 6.2 K/mcL (1.6-8.9); Platelet Count 343 K/mcL (140-400); Red Blood Count 2.53 M/mcL (3.82-4.97); Red Cell Distribution Width 16.3 % (11.5-14.5); Segmented Neutrophils % 79.5 %
[2017-07-19 05:28] LABS: Prothrombin Time 21.5 Seconds (9.4-12.1)
[2017-07-19 05:29] LABS: BUN/Creatinine Ratio 18 (6-26); Blood Urea Nitrogen 13 mg/dL (8-23); Calcium 7.9 mg/dL (8.6-10.3); Carbon Dioxide 28 mEq/L (23-29); Chloride 106 mEq/L (98-107); Glucose 186 mg/dL (70-105); Osmolality,Calculated 295 (280-300); Potassium 3.3 mEq/L (3.5-5.1); Sodium 140 mEq/L (136-145); eGFR For African Americans > 60 (> 60); eGFR For Non-African Americans > 60 (> 60)
--- NOTE | 2017-07-19 08:07 | Palliative Progress Note ---
<Martha Haider-My - Last Filed: 07/19/17 08:02> Date of Encounter: 07/19/17 Time of Encounter: 07:40 - Assessment and plan (1) Goals of care, counseling/discussion Current Visit: Yes Status: Acute Assessment and plan: Patient's code status is currently DNR-[facility] Arrest with [facility]. Palliative team will continue to follow. - Time Spent With Patient Total time spent is greater than 50% in coordination of care (as documented) at patient's floor/unit and/or counseling patient: less than 15 minutes - Subjective Interval history: There are no family members at the bedside at this time. Patient is currently resting quietly and appears comfortable and in no acute distress. I did not wake her up today, but I examined her at bedside. Vitals are within normal limits on my exam. Patient is afebrile with oxygen saturation at 94% on 3L of oxygen. Per nurse, patient was agitated overnight and refused to take medications. Per nurse, patient calmed down after a dose of Dilaudid and ativan. - Constitutional Vitals: Abnormal lab results RBC 2.53 M/mcL (3.82-4.97) L 07/19/17 05:02 Hgb 7.3 g/dL (11.5-15.4) L 07/19/17 05:02 Hct 23.3 % (35.3-44.9) L 07/19/17 05:02 MCHC 31.3 g/dL (31.6-35.5) L 07/19/17 05:02 RDW 16.3 % (11.5-14.5) H 07/19/17 05:02 MPV 9.3 fL (9.4-12.4) L 07/19/17 05:02 Nucleated RBCs/100 WBC 0.4 /100 WBC (0) H 07/09/17 04:40 PT 21.5 Seconds (9.4-12.1) H 07/19/17 05:02 APTT 56.0 Seconds (26.0-36.0) H 07/06/17 05:59 ABG pCO2 48 mmHg (35-45) H 07/15/17 19:10 ABG pO2 73 mmHg (85-104) L 07/15/17 19:10 ABG HCO3 33 mEq/L (21-27) H 07/15/17 19:10 ABG Total CO2 34 mEq/L (20-26) H 07/15/17 19:10 ABG Base Excess 7 mEq/L (-2 to 3) H 07/15/17 19:10 Potassium 3.3 mEq/L (3.5-5.1) L 07/19/17 05:02 Glucose 186 mg/dL (70-105) H 07/19/17 05:02 POC Glucose 187 (58-89) H 07/18/17 16:15 Hemoglobin A1c 7.8 % (-5.6) H 07/08/17 00:55 Calcium 7.9 mg/dL (8.6-10.3) L 07/19/17 05:02 AST 8 Units/L (13-39) L 07/16/17 04:31 Alkaline Phosphatase 32 Units/L (34-104) L 07/16/17 04:31 Serum Total Protein 5.7 g/dL (6.4-8.9) L 07/16/17 04:31 Albumin 2.0 g/dL (3.5-5.7) L 07/16/17 04:31 Globulin 3.7 g/dL (2.4-3.5) H 07/16/17 04:31 Albumin/Globulin Ratio 0.5 (1.1-2.2) L 07/16/17 04:31 Cholesterol 210 mg/dL (< 200) H 07/06/17 05:59 LDL Cholesterol, Calc 145 mg/dL (0-99) H 07/06/17 05:59 HDL Cholesterol 38 mg/dL (40-59) L 07/06/17 05:59 Cholesterol/HDL Ratio 5.5 (0-4.9) H 07/06/17 05:59 Urine Blood Trace (Negative) H 07/15/17 13:20 Ur Leukocyte Esterase Trace (Negative) H 07/15/17 13:20 Urine Microscopic RBC 3-5 per hpf (0-3) H 07/15/17 13:20 Urine Microscopic WBC 3-5 per hpf (0-3) H 07/15/17 13:20 Ur Squamous Epith Cells Moderate per lpf (None-Few) H 07/15/17 13:20 Urine Yeast Few per hpf (None Seen) H 07/15/17 13:20 Ur Culture Indicated? YES (NO) A 07/15/17 13:20 Vancomycin Trough 20.9 mcg/mL (10-20) H* 07/18/17 16:23 Staphylococcus sp PCR DETECTED (Not Detect) A 07/14/17 07:56 Staph aureus (PCR) DETECTED (Not Detect) A 07/14/17 07:56 mecA-Methicil Res Gene DETECTED (Not Detect) A 07/14/17 07:56 General appearance: Present: obese. Absent: febrile, no acute distress - Head Head exam: Present: atraumatic - Neck Neck exam: Present: normal inspection. Absent: lymphadenopathy, tenderness - Respiratory Respiratory exam: Present: CTAB. Absent: decreased breath sounds, rales, respiratory distress, wheezes - Cardiovascular Cardiovascular exam: Present: RRR, +S1, +S2. Absent: bradycardia (Heart rate was at 64 bpm on my exam), gallop, rubs, tachycardia - GI/Abdominal GI/Abdominal exam: Present: soft. Absent: distended, guarding, tenderness - Extremities Exam Extremities exam: Absent: calf tenderness, joint swelling - Neurological Exam Additional comments: Patient was resting quietly and comfortably on my exam. Per nurse, patient continues to communicate with inappropiate words that is hard to understand overnight. Palliative Quality Palliative Quality: Screen for Code Status: Yes, Screen for Goals of Care: Yes, Screen for Pain: Yes, If Pain Regimen Started, Initiate Bowel Regimen: Yes, Screen for Nausea/Vomitting: Yes Code Status: 07/16/17 14:43 DNR [Resuscitation Status: Active] [RES] Routine Comment: Resuscitation Status: [id number] - Labs CBC & Chem 7: 07/19/17 05:02 07/19/17 05:02 Labs: Laboratory Results - last 24 hr 07/18/17 07/18/17 07/18/17 07:20 11:16 16:15 WBC RBC Hgb Hct MCV MCH MCHC RDW Plt Count MPV Immature Gran % Seg Neutrophils % Lymphocytes % Monocytes % Eosinophils % Basophils % Neutrophils # Lymphocytes # Monocytes # Eosinophils # Basophils # PT INR Sodium Potassium Chloride Carbon Dioxide BUN Creatinine Est GFR ( Amer) Est GFR (Non-Af Amer) BUN/Creatinine Ratio Glucose POC Glucose 181 H 197 H 187 H Calculated Osmolality Calcium Vancomycin Trough 07/18/17 07/19/17 07/19/17 16:23 05:02 05:02 WBC 7.8 RBC 2.53 L Hgb 7.3 L Hct 23.3 L MCV 92.1 MCH 28.9 MCHC 31.3 L RDW 16.3 H Plt Count 343 MPV 9.3 L Immature Gran % 0.5 Seg Neutrophils % 79.5 Lymphocytes % 12.1 Monocytes % 6.5 Eosinophils % 1.0 Basophils % 0.4 Neutrophils # 6.2 Lymphocytes # 1.0 Monocytes # 0.5 Eosinophils # 0.1 Basophils # 0.0 PT 21.5 H INR 2.0 Sodium Potassium Chloride Carbon Dioxide BUN Creatinine Est GFR ( Amer) Est GFR (Non-Af Amer) BUN/Creatinine Ratio Glucose POC Glucose Calculated Osmolality Calcium Vancomycin Trough 20.9 H* 07/19/17 05:02 WBC RBC Hgb Hct MCV MCH MCHC RDW Plt Count MPV Immature Gran % Seg Neutrophils % Lymphocytes % Monocytes % Eosinophils % Basophils % Neutrophils # Lymphocytes # Monocytes # Eosinophils # Basophils # PT INR Sodium 140 Potassium 3.3 L Chloride 106 Carbon Dioxide 28 BUN 13 Creatinine 0.72 Est GFR ( Amer) > 60 Est GFR (Non-Af Amer) > 60 BUN/Creatinine Ratio 18 Glucose 186 H POC Glucose Calculated Osmolality 295 Calcium 7.9 L Vancomycin Trough - Impressions Impressions Bone Scan Nuclear Medicine 07/17/17 18:04 IMPRESSION: 1. Degenerative uptake. The patient is rotated, resulting in apparent asymmetries in the hips and shoulders, most likely positional differences. 2. There is mild asymmetric increased uptake in the left knee compared to the right. This could be degenerative. D/ / Gus Thomas MD / Gus Thomas MD Interpreting Provider: Gus Thomas MD Gallbladder Ultrasound 07/18/17 09:00 IMPRESSION: Sludge and several small stones seen within the gallbladder with mild gallbladder wall thickening. The patient did not have a positive sonographic Coyle's sign. There is no definitive evidence for acute cholecystitis. If further evaluation is needed, recommend HIDA scan. D/ / 07/18/2017 09:03:33 Wai Andrade MD / ronak Interpreting Provider: Wai Andrade MD - ABG Interpretation ABG results: ABG ABG pH 7.44 pH Units (7.32-7.45) 07/15/17 19:10 ABG pCO2 48 mmHg (35-45) H 07/15/17 19:10 ABG pO2 73 mmHg (85-104) L 07/15/17 19:10 ABG O2 Saturation 95 % (95-98) 07/15/17 19:10 PT/INR, D-dimer PT 21.5 Seconds (9.4-12.1) H 07/19/17 05:02 Consult Discharge Plan - Plan Referrals: Barbra Juarez MD [Primary Care Provider] - Prince Wolf MD [Family Provider] - <Ravindra Rodriguez L - Last Filed: 07/19/17 08:14> Date of Encounter: 07/19/17 - Time Spent With Patient Total time spent is greater than 50% in coordination of care (as documented) at patient's floor/unit and/or counseling patient: - Constitutional Vitals: Abnormal lab results RBC 2.53 M/mcL (3.82-4.97) L 07/19/17 05:02 Hgb 7.3 g/dL (11.5-15.4) L 07/19/17 05:02 Hct 23.3 % (35.3-44.9) L 07/19/17 05:02 MCHC 31.3 g/dL (31.6-35.5) L 07/19/17 05:02 RDW 16.3 % (11.5-14.5) H 07/19/17 05:02 MPV 9.3 fL (9.4-12.4) L 07/19/17 05:02 Nucleated RBCs/100 WBC 0.4 /100 WBC (0) H 07/09/17 04:40 PT 21.5 Seconds (9.4-12.1) H 07/19/17 05:02 APTT 56.0 Seconds (26.0-36.0) H 07/06/17 05:59 ABG pCO2 48 mmHg (35-45) H 07/15/17 19:10 ABG pO2 73 mmHg (85-104) L 07/15/17 19:10 ABG HCO3 33 mEq/L (21-27) H 07/15/17 19:10 ABG Total CO2 34 mEq/L (20-26) H 07/15/17 19:10 ABG Base Excess 7 mEq/L (-2 to 3) H 07/15/17 19:10 Potassium 3.3 mEq/L (3.5-5.1) L 07/19/17 05:02 Glucose 186 mg/dL (70-105) H 07/19/17 05:02 POC Glucose 187 (58-89) H 07/18/17 16:15 Hemoglobin A1c 7.8 % (-5.6) H 07/08/17 00:55 Calcium 7.9 mg/dL (8.6-10.3) L 07/19/17 05:02 AST 8 Units/L (13-39) L 07/16/17 04:31 Alkaline Phosphatase 32 Units/L (34-104) L 07/16/17 04:31 Serum Total Protein 5.7 g/dL (6.4-8.9) L 07/16/17 04:31 Albumin 2.0 g/dL (3.5-5.7) L 07/16/17 04:31 Globulin 3.7 g/dL (2.4-3.5) H 07/16/17 04:31 Albumin/Globulin Ratio 0.5 (1.1-2.2) L 07/16/17 04:31 Cholesterol 210 mg/dL (< 200) H 07/06/17 05:59 LDL Cholesterol, Calc 145 mg/dL (0-99) H 07/06/17 05:59 HDL Cholesterol 38 mg/dL (40-59) L 07/06/17 05:59 Cholesterol/HDL Ratio 5.5 (0-4.9) H 07/06/17 05:59 Urine Blood Trace (Negative) H 07/15/17 13:20 Ur Leukocyte Esterase Trace (Negative) H 07/15/17 13:20 Urine Microscopic RBC 3-5 per hpf (0-3) H 07/15/17 13:20 Urine Microscopic WBC 3-5 per hpf (0-3) H 07/15/17 13:20 Ur Squamous Epith Cells Moderate per lpf (None-Few) H 07/15/17 13:20 Urine Yeast Few per hpf (None Seen) H 07/15/17 13:20 Ur Culture Indicated? YES (NO) A 07/15/17 13:20 Vancomycin Trough 20.9 mcg/mL (10-20) H* 07/18/17 16:23 Staphylococcus sp PCR DETECTED (Not Detect) A 07/14/17 07:56 Staph aureus (PCR) DETECTED (Not Detect) A 07/14/17 07:56 mecA-Methicil Res Gene DETECTED (Not Detect) A 07/14/17 07:56 - Attending Attestation I examined this patient and my medical decision-making was reviewed with the Resident Physician. I agree with the documented findings, disposition and treatment plan as described except to the extent set forth below. Palliative Quality Code Status: 07/16/17 14:43 DNR [Resuscitation Status: Active] [RES] Routine Comment: Resuscitation Status: [id number] - Labs CBC & Chem 7: 07/19/17 05:02 07/19/17 05:02 Labs: Laboratory Results - last 24 hr 07/18/17 07/18/17 07/18/17 07:20 11:16 16:15 WBC RBC Hgb Hct MCV MCH MCHC RDW Plt Count MPV Immature Gran % Seg Neutrophils % Lymphocytes % Monocytes % Eosinophils % Basophils % Neutrophils # Lymphocytes # Monocytes # Eosinophils # Basophils # PT INR Sodium Potassium Chloride Carbon Dioxide BUN Creatinine Est GFR ( Amer) Est GFR (Non-Af Amer) BUN/Creatinine Ratio Glucose POC Glucose 181 H 197 H 187 H Calculated Osmolality Calcium Vancomycin Trough 07/18/17 07/19/17 07/19/17 16:23 05:02 05:02 WBC 7.8 RBC 2.53 L Hgb 7.3 L Hct 23.3 L MCV 92.1 MCH 28.9 MCHC 31.3 L RDW 16.3 H Plt Count 343 MPV 9.3 L Immature Gran % 0.5 Seg Neutrophils % 79.5 Lymphocytes % 12.1 Monocytes % 6.5 Eosinophils % 1.0 Basophils % 0.4 Neutrophils # 6.2 Lymphocytes # 1.0 Monocytes # 0.5 Eosinophils # 0.1 Basophils # 0.0 PT 21.5 H INR 2.0 Sodium Potassium Chloride Carbon Dioxide BUN Creatinine Est GFR ( Amer) Est GFR (Non-Af Amer) BUN/Creatinine Ratio Glucose POC Glucose Calculated Osmolality Calcium Vancomycin Trough 20.9 H* 07/19/17 05:02 WBC RBC Hgb Hct MCV MCH MCHC RDW Plt Count MPV Immature Gran % Seg Neutrophils % Lymphocytes % Monocytes % Eosinophils % Basophils % Neutrophils # Lymphocytes # Monocytes # Eosinophils # Basophils # PT INR Sodium 140 Potassium 3.3 L Chloride 106 Carbon Dioxide 28 BUN 13 Creatinine 0.72 Est GFR ( Amer) > 60 Est GFR (Non-Af Amer) > 60 BUN/Creatinine Ratio 18 Glucose 186 H POC Glucose Calculated Osmolality 295 Calcium 7.9 L Vancomycin Trough - Impressions Impressions Bone Scan Nuclear Medicine 07/17/17 18:04 IMPRESSION: 1. Degenerative uptake. The patient is rotated, resulting in apparent asymmetries in the hips and shoulders, most likely positional differences. 2. There is mild asymmetric increased uptake in the left knee compared to the right. This could be degenerative. D/ / Gus Thomas MD / Gus Thomas MD Interpreting Provider: Gus Thomas MD Gallbladder Ultrasound 07/18/17 09:00
--- NOTE | 2017-07-19 10:03 | Internal Med Progress Note ---
<Jimmy Ryan - Last Filed: 07/19/17 12:27> Date of Encounter: 07/19/17 Time of Encounter: 09:59 - Assessment and plan (1) MRSA bacteremia Current Visit: Yes Status: Acute Assessment and plan: - Persistent MRSA bacteremia. -Positive blood cultures on 07/09, 07/10, 07/12 for MRSA - Preliminary cultures drawn 07/14 show 1/2 growing MRSA - Blood cultures drawn on 07/16 and 07/17 and 07/18 preliminary no growth - Has been on vancomycin with goal trough of 15-20, day 11 - No obvious source identified. - Urine culture mixed and inconclusive, CXR show bilateral consolidation suspicious of PNA, mass/likely lipoma of right medial thigh on MRI - Sacral decubitus ulcers being evaluated and changed per wound care - Ortho performed right hip bursitis aspiration yesterday, negative for infection - TTE and GILBERTO negative for vegetations for possible endocarditis. Recommend repeat GILBERTO in 7-10days if symptoms persist. - ID consulted, appreciate recommendations. - Febrile temperature of 99.3 axillary overnight, otherwise vitals unremarkable. No white count - CT scan results yesterday showing bilateral pleural effusions, interlobular septal thickening of lungs with ground glass opacities, mild ascites, high attenuation material within the gallbladder with mild distention, colonic diverticulosis without diverticulitis. -Bone scan revealed degenerative uptake of right hip possibly degenerative in nature versus infectious. - Gallbladder ultrasound showing sludge and several small stones without obvious evidence of cholecystitis and a negative Coyle sign. Plan - Continue vancomycin and await final results of blood cultures - Per infectious disease, may switch to daptomycin if blood cultures continue to grow MRSA - Continue Zosyn coverage for possible aspiration pneumonia - Palliative consulted, code status changed to [id number] - Daily labs - ID consult - Contact precautions. - After speaking with nuclear medicine, we will pursue indium WBC scan to futher evalutate right hip but must wait until friday for Tc to clear system from bone scan (2) Acute cerebral infarction Current Visit: Yes Status: Acute Assessment and plan: - Acute right thalamic lacunar infarct as seen on brain MRI on 07/08/17 for right leg weakness - Scattered bilateral small infarcts suggestive of emboli of cardiac or septic etiology. - Neurology following appreciate recommendations. - Left carotid stenosis of 60-79%. - Per daughter, pt is not at baseline mental status. May also be attributable to infection vs metabolic etiologies. - Repeat Brain MRI on 07/16/17 showed no acute changes from previous. - Clinically may be mildly improved with less moaning and more eye contact. Plan - Continue statin, aspirin - Pt/OT when able. - Infectious disease recommended reconsult neurology, following. - Management of AMS and determine if alternative etiologies are contributing - Not a candidate for aggressive measures at this time due to other medical conditions and severity of other acute conditions. (3) Supratherapeutic INR Current Visit: Yes Status: Acute Assessment and plan: - INR of 8.7 on admission. - Most recently 2.0 this AM after receiving 2 units of fresh frozen plasma on Plan - Pharmacy to dose coumadin. History of CVA, goal of INR of 2-3 - Continue to monitor for signs of bleed. (4) Stage II pressure ulcer of buttock Current Visit: Yes Status: Acute Assessment and plan: per nursing. consult wound care. - Possible source of bacteremia. - Dressing changes. - Frequent bed turns. Qualifiers: Laterality: left Qualified Code(s): L89.322 - Pressure ulcer of left buttock, stage 2 (5) Altered mental status Current Visit: Yes Status: Acute Assessment and plan: - Etiology unclear at this time, likely multifactorial - Pain from femoral nerve compression vs acute cerebral infarct vs infectious vs pain vs possible psychological etiology Plan - Treat underlying infection. Currently on Zosyn and vancomycin - ABG unremarkable - Pain control - Ammonia level normal - Consult neurology. - Possible new baseline, consulted palliative care - Continue mirtazipine tonight. Qualifiers: Altered mental status type: unspecified Qualified Code(s): R41.82 - Altered mental status, unspecified (6) Lipoma Current Visit: Yes Status: Acute Assessment and plan: - MRI of the right femur showed a large 21.3 x 9.8 x 7.7 cm fat signal mass. Not exactly sure this is the cause of her issues. - Surgery consulted, no intervention for now per surgery service due to her other more acute medical issues. Plan - Unlikely surgical candidate - Due to nature of lipoma and size would likely have to remove entire lesion if this turns out to be the source of infection - MRI shows dense lesion which appears lobular. - Will monitor for now Qualifiers: Lipoma location: lower extremity Laterality: right Qualified Code(s): D17.23 - Benign lipomatous neoplasm of skin and subcutaneous tissue of right leg (7) Lumbar spinal stenosis Current Visit: Yes Status: Chronic Assessment and plan: Per CT scans. Has been seen by neurology. - No acute interventions while inpatient. - Pain control Qualifiers: Neurogenic claudication status: unspecified Qualified Code(s): M48.061 - Spinal stenosis, lumbar region without neurogenic claudication (8) Chronic kidney disease (CKD) stage G3a/A3, moderately decreased glomerular filtration rate (GFR) between 45-59 mL/min/1.73 square meter and albuminuria creatinine ratio greater than 300 mg/g Current Visit: Yes Status: Acute Assessment and plan: - Stage III per chart review. - BUN/Cr of 13/0.72 this AM - Calculated Creatinine clearance of 93 - Appears to be at baseline Plan - Monitor for fluid status - Avoid nephrotoxic agents - Continue vancomycin as benefit outweighs risk. Monitor and renally dose per pharmacy with goal trough of 15-20. (9) Anemia Current Visit: Yes Status: Acute Assessment and plan: - H/H of 7.3/23.3 this AM. Hgb of 7.2 yesterday - Likely a result of chronic disease, CKD III. Baseline 8-9 - Received 2 units during this admisssion - Unable to determine if symptomatic but has remained stable for past couple days Plan - Continue to monitor daily CBC - Transfuse as necessary Qualifiers: Anemia type: unspecified type Qualified Code(s): D64.9 - Anemia, unspecified (10) HCAP (healthcare-associated pneumonia) Current Visit: Yes Status: Acute Assessment and plan: - Concern for HCAP on CXR showing bilateral opacities - Aspiration coverage due to AMS - Febrile today at 99.3 axillary, no WBC. - Sputum cultures negative. Blood cultures as above. Strep and legionella negative. Plan - Continue vancomycin day 11, zosyn day 4. - Received 7 days of cefepime - Tylenol PRN fever. (11) Hypokalemia Current Visit: Yes Status: Acute Assessment and plan: Potassium of 3.3 this morning, 3.0 yesterday after 40 mEq -Received 40 mEq of potassium again this morning - Continue to monitor. (12) DVT prophylaxis Current Visit: Yes Status: Acute Assessment and plan: Coumadin. Pharmacy to dose. - Time Spent With Patient 25 - 35 minutes - Subjective Interval history: Patient was seen and examined at bedside this morning. Pt is more calm this morning, but continues to moan in pain on palpation. She does turn her head when physician approached the bed. Continues to not respond to questions and I am unable to make out words. - Constitutional Vitals: Temp Pulse Resp BP Pulse Ox 98.0 F 73 18 146/77 93 07/18/17 18:49 07/19/17 03:19 07/19/17 03:19 07/19/17 03:19 07/19/17 03:19 General appearance: Present: cooperative, mild distress, pleasant, obese, answers questions appropriately Exam: Gen.: Vitals noted. Mild distress. AAOx0. Moaning in pain. HEENT: PERRL/EOMI, oropharynx clear, Normocephalic, atraumatic Cardiac: Irregular rhythm, no murmur, +S1/S2 Pulmonary: Possible mild wheeze. equal chest expansion Abdomen: Guarding present, appears to be mildly tender but difficult to interpret., BS noted MSK: ROM intact, no joint swelling noted Extremities: no BLE edema, nontender calf, no cyanosis or clubbing Neuro: A&Ox0, moves all extremities, unable to assess due to mental status Psych: Appropriate mood and behavior Internal Medicine: Result - Labs CBC & Chem 7: 07/19/17 05:02 07/19/17 05:02 Labs: Short CBC 07/19/17 Range/Units 05:02 WBC 7.8 (4.3-11.1) K/mcL Hgb 7.3 L (11.5-15.4) g/dL Hct 23.3 L (35.3-44.9) % Plt Count 343 (140-400) K/mcL Neutrophils # 6.2 (1.6-8.9) K/mcL BMP 07/19/17 05:02 Sodium 140 Potassium 3.3 L Chloride 106 Carbon Dioxide 28 BUN 13 Creatinine 0.72 Glucose 186 H Calcium 7.9 L - ABG Interpretation ABG results: ABG ABG pH 7.44 pH Units (7.32-7.45) 07/15/17 19:10 ABG pCO2 48 mmHg (35-45) H 07/15/17 19:10 ABG pO2 73 mmHg (85-104) L 07/15/17 19:10 ABG O2 Saturation 95 % (95-98) 07/15/17 19:10 PT/INR, D-dimer PT 21.5 Seconds (9.4-12.1) H 07/19/17 05:02 Consult Discharge Plan - Plan Referrals: Barbra Juarez MD [Primary Care Provider] - Prince Wolf MD [Family Provider] - <Jc Thompson A - Last Filed: 07/19/17 18:18> Date of Encounter: 07/19/17 - Assessment and plan (1) Acute metabolic encephalopathy Current Visit: Yes Status: Acute Assessment and plan: Seems to be a little better today. (2) MRSA (methicillin resistant Staphylococcus aureus) infection Current Visit: Yes Status: Acute (3) MRSA bacteremia Current Visit: Yes Status: Acute (4) Thrush, oral Current Visit: Yes Status: Acute (5) Cerebrovascular accident (CVA) due to bilateral embolism of anterior cerebral arteries Current Visit: Yes Status: Acute (6) Chronic kidney disease (CKD) stage G3a/A3, moderately decreased glomerular filtration rate (GFR) between 45-59 mL/min/1.73 square meter and albuminuria creatinine ratio greater than 300 mg/g Current Visit: Yes Status: Acute (7) CHF (congestive heart failure) Current Visit: Yes Status: Chronic Qualifiers: Congestive heart failure type: systolic Congestive heart failure chronicity : chronic Qualified Code(s): I50.22 - Chronic systolic (congestive) heart failure (8) Right hip pain Current Visit: Yes Status: Acute (9) COPD (chronic obstructive pulmonary disease) Current Visit: Yes Status: Chronic Qualifiers: COPD type: unspecified COPD Qualified Code(s): J44.9 - Chronic obstructive pulmonary disease, unspecified (10) Afib Current Visit: No Status: Chronic Qualifiers: Atrial fibrillation type: paroxysmal Qualified Code(s): I48.0 - Paroxysmal atrial fibrillation (11) CAD (coronary artery disease) Current Visit: No Status: Chronic Qualifiers: Coronary Disease-Associated Artery/Lesion type: [place] artery [place] vs. transplanted heart: [place] heart Associated angina: without angina Qualified Code(s): I25.10 - Atherosclerotic heart disease of [place] coronary artery without angina pectoris - Constitutional Vitals: Temp Pulse Resp BP Pulse Ox 98.8 F 76 19 139/73 96 07/19/17 17:54 07/19/17 17:54 07/19/17 17:54 07/19/17 17:54 07/19/17 17:54 Internal Medicine: Result - Labs CBC & Chem 7: 07/19/17 05:02 07/19/17 05:02 Labs: Short CBC 07/19/17 Range/Units 05:02 WBC 7.8 (4.3-11.1) K/mcL Hgb 7.3 L (11.5-15.4) g/dL Hct 23.3 L (35.3-44.9) % Plt Count 343 (140-400) K/mcL Neutrophils # 6.2 (1.6-8.9) K/mcL BMP 07/19/17 05:02 Sodium 140 Potassium 3.3 L Chloride 106 Carbon Dioxide 28 BUN 13 Creatinine 0.72 Glucose 186 H Calcium 7.9 L - ABG Interpretation ABG results: ABG ABG pH 7.44 pH Units (7.32-7.45) 07/15/17 19:10 ABG pCO2 48 mmHg (35-45) H 07/15/17 19:10 ABG pO2 73 mmHg (85-104) L 07/15/17 19:10 ABG O2 Saturation 95 % (95-98) 07/15/17 19:10 PT/INR, D-dimer PT 21.5 Seconds (9.4-12.1) H 07/19/17 05:02 - Impressions Impressions Chest X-Ray 07/16/17 12:12 IMPRESSION: Increasing moderate left pleural effusion with increasing airspace opacity in the left lung. There is increasing subtle opacity in the mid to lower right lung as well which may reflect a layering pleural effusion. D/ / 07/16/2017 13:02:53 Allison Ojeda MD / ronak Interpreting Provider: Allison Ojeda MD - Attending Attestation I examined this patient and my medical decision-making was reviewed with the Resident Physician on 07/19/17. I agree with the documented findings, disposition and treatment plan as described except to the extent set forth below. Ms New is currently admitted for acute R hip pain and MRSA bacteremia. This is complicated by bilateral CVAs and encephalopathy. She remains moderate to high risk due to potential for worsening clinical status. Ms New is resting comfortably at this time. She is still not eating much. Seems to be more alert. Pain still an issue. Multiple blood cultures now negative. Exam Alert. Comfortable at this time. Mucus membranes dry Heart distant No wheeze Abd soft I/P 1. Encephalopathy 2 MRSA bacteremia Further diagnoses and plan as above.
[2017-07-19] MEDS: Insulin LISPRO 300 UNITS/3 ML VIAL SQ SCH ×3 (12:01→18:06)
[2017-07-19] MEDS: Nystatin SUSP 5 ML UD.LIQ PO SCH ×3 (12:13→18:08)
[2017-07-19] MEDS ORDERED: Potassium Chloride 40 MEQ, Lidocaine 1% 2 ML in D5% in Water 500 ML IVPB ONE (12:37)
[2017-07-19] MEDS: Silvasorb 44.4 ML TUBE TP SCH (12:42)
[2017-07-19] MEDS: *HR* Amiodarone 200 MG TABLET PO SCH (12:43)
[2017-07-19] MEDS: Nitroglycerin 0.4 MG PATCH.TD24 TD SCH (13:33)
[2017-07-19] MEDS: Vancomycin 1,500 MG in D5% in Water 250 ML IVPB SCH (13:58)
[2017-07-19] MEDS: Fluconazole 100 MG/50 ML 100 MG/50 ML BAG IVPB SCH (20:20)
[2017-07-20] MEDS: *HR* HYDROmorphone (PF) 1 MG/ML SYRINGE IVP PRN ×5 (01:20→20:30)
[2017-07-20] MEDS: *HR* LORazepam 2 MG/ML VIAL IVP PRN ×3 (01:42→19:43)
[2017-07-20] MEDS: Bisacodyl 10 MG RECTAL SUPPOSITORY RC SCH ×2 (02:51→22:10)
[2017-07-20] MEDS: Nystatin SUSP 5 ML UD.LIQ PO SCH ×5 (02:52→22:10)
[2017-07-20] MEDS: Insulin LISPRO 300 UNITS/3 ML VIAL SQ SCH ×5 (02:52→22:10)
[2017-07-20] MEDS: Mirtazapine 15 MG TABLET PO SCH (02:53)
[2017-07-20 06:51] LABS: INR 2.1; Prothrombin Time 23.3 Seconds (9.4-12.1)
[2017-07-20 06:59] LABS: Basophils % 0.4 %; Eosinophils # 0.1 K/mcL (0.0-0.6); Eosinophils % 1.4 %; Hematocrit 24.3 % (35.3-44.9); Hemoglobin 7.2 g/dL (11.5-15.4); Immature Granulocytes % 0.6 % (0-4); Lymphocytes # 1.8 K/mcL (0.6-4.6); Lymphocytes % 24.6 %; Mean Corpuscular HGB Conc 29.6 g/dL (31.6-35.5); Mean Corpuscular Hemoglobin 27.5 pg (28.0-33.3); Mean Corpuscular Volume 92.7 fL (83.0-100.0); Mean Platelet Volume 9.3 fL (9.4-12.4); Monocytes # 0.5 K/mcL (0.0-1.3); Monocytes % 6.8 %; Neutrophils # 4.7 K/mcL (1.6-8.9); Nucleated Red Blood Cells 0.3 /100 WBC (0); Platelet Count 339 K/mcL (140-400); Red Blood Count 2.62 M/mcL (3.82-4.97); Red Cell Distribution Width 16.4 % (11.5-14.5); Segmented Neutrophils % 66.2 %
[2017-07-20] MEDS: Nitroglycerin 0.4 MG PATCH.TD24 TD SCH (07:36)
--- NOTE | 2017-07-20 07:37 | Palliative Progress Note ---
<Martha Haider-Adelina - Last Filed: 07/20/17 07:34> Date of Encounter: 07/20/17 Time of Encounter: 07:20 - Assessment and plan (1) Goals of care, counseling/discussion Current Visit: Yes Status: Acute Assessment and plan: Palliative team will continue to follow the patient. Patient current code status is DNR-CCA and DNI. - Time Spent With Patient Total time spent is greater than 50% in coordination of care (as documented) at patient's floor/unit and/or counseling patient: less than 15 minutes - Subjective Interval history: Patient seen and examined at bedside this morning. There are no family members at the bedside at this time. Patient is currently resting quietly and appears comfortable and in no acute distress. However, I attempted to fix her nasal canula and she woke up pulling it off. She continues to moan and mumbled words that are not understandable to me. Vitals are within normal limits on my exam, but her oxygen saturation drops to 84% when she pulls off her nasal canula. I informed her nurse to assist her in place her nasal canula back on. She is now on 4L of oxygen. Per nurse, patient was agitated overnight and refused to take anything orally. Per nurse, patient received two doses of Ativan overnight to calm her down. - Constitutional Vitals: Abnormal lab results RBC 2.62 M/mcL (3.82-4.97) L 07/20/17 06:15 Hgb 7.2 g/dL (11.5-15.4) L 07/20/17 06:15 Hct 24.3 % (35.3-44.9) L 07/20/17 06:15 MCH 27.5 pg (28.0-33.3) L 07/20/17 06:15 MCHC 29.6 g/dL (31.6-35.5) L 07/20/17 06:15 RDW 16.4 % (11.5-14.5) H 07/20/17 06:15 MPV 9.3 fL (9.4-12.4) L 07/20/17 06:15 Nucleated RBCs/100 WBC 0.3 /100 WBC (0) H 07/20/17 06:15 PT 23.3 Seconds (9.4-12.1) H 07/20/17 06:15 APTT 56.0 Seconds (26.0-36.0) H 07/06/17 05:59 ABG pCO2 48 mmHg (35-45) H 07/15/17 19:10 ABG pO2 73 mmHg (85-104) L 07/15/17 19:10 ABG HCO3 33 mEq/L (21-27) H 07/15/17 19:10 ABG Total CO2 34 mEq/L (20-26) H 07/15/17 19:10 ABG Base Excess 7 mEq/L (-2 to 3) H 07/15/17 19:10 Potassium 3.3 mEq/L (3.5-5.1) L 07/19/17 05:02 Glucose 186 mg/dL (70-105) H 07/19/17 05:02 POC Glucose 236 (58-89) H 07/19/17 17:20 Hemoglobin A1c 7.8 % (-5.6) H 07/08/17 00:55 Calcium 7.9 mg/dL (8.6-10.3) L 07/19/17 05:02 AST 8 Units/L (13-39) L 07/16/17 04:31 Alkaline Phosphatase 32 Units/L (34-104) L 07/16/17 04:31 Serum Total Protein 5.7 g/dL (6.4-8.9) L 07/16/17 04:31 Albumin 2.0 g/dL (3.5-5.7) L 07/16/17 04:31 Globulin 3.7 g/dL (2.4-3.5) H 07/16/17 04:31 Albumin/Globulin Ratio 0.5 (1.1-2.2) L 07/16/17 04:31 Cholesterol 210 mg/dL (< 200) H 07/06/17 05:59 LDL Cholesterol, Calc 145 mg/dL (0-99) H 07/06/17 05:59 HDL Cholesterol 38 mg/dL (40-59) L 07/06/17 05:59 Cholesterol/HDL Ratio 5.5 (0-4.9) H 07/06/17 05:59 Urine Blood Trace (Negative) H 07/15/17 13:20 Ur Leukocyte Esterase Trace (Negative) H 07/15/17 13:20 Urine Microscopic RBC 3-5 per hpf (0-3) H 07/15/17 13:20 Urine Microscopic WBC 3-5 per hpf (0-3) H 07/15/17 13:20 Ur Squamous Epith Cells Moderate per lpf (None-Few) H 07/15/17 13:20 Urine Yeast Few per hpf (None Seen) H 07/15/17 13:20 Ur Culture Indicated? YES (NO) A 07/15/17 13:20 Vancomycin Trough 20.9 mcg/mL (10-20) H* 07/18/17 16:23 Staphylococcus sp PCR DETECTED (Not Detect) A 07/14/17 07:56 Staph aureus (PCR) DETECTED (Not Detect) A 07/14/17 07:56 mecA-Methicil Res Gene DETECTED (Not Detect) A 07/14/17 07:56 General appearance: Present: obese. Absent: cooperative, no acute distress, severe distress - Head Head exam: Present: atraumatic - Neck Neck exam: Present: normal inspection. Absent: lymphadenopathy, tenderness - Respiratory Respiratory exam: Present: CTAB. Absent: rales, respiratory distress, rhonchi, wheezes - Cardiovascular Cardiovascular exam: Present: RRR, +S1, +S2. Absent: bradycardia, gallop, rubs , tachycardia - GI/Abdominal GI/Abdominal exam: Present: soft. Absent: distended, guarding, tenderness - Extremities Exam Extremities exam: Present: normal inspection. Absent: calf tenderness - Neurological Exam Neurological exam: Absent: oriented X3, facial droop (Patient moans when awaken as if she is in pain. She continues to communicate words that are not understandable. ) Palliative Quality Palliative Quality: Screen for Code Status: Yes, Screen for Goals of Care: Yes, Screen for Pain: Yes, If Pain Regimen Started, Initiate Bowel Regimen: Yes, Screen for Nausea/Vomitting: Yes Code Status: 07/16/17 14:43 DNR [Resuscitation Status: Active] [RES] Routine Comment: Resuscitation Status: [id number] - Labs CBC & Chem 7: 07/20/17 06:15 07/19/17 05:02 Labs: Laboratory Results - last 24 hr 07/18/17 07/19/17 07/19/17 18:41 08:29 11:32 WBC RBC Hgb Hct MCV MCH MCHC RDW Plt Count MPV Immature Gran % Seg Neutrophils % Lymphocytes % Monocytes % Eosinophils % Basophils % Neutrophils # Lymphocytes # Monocytes # Eosinophils # Basophils # Nucleated RBCs/100 WBC PT INR POC Glucose 225 H 201 H 270 H 07/19/17 07/20/17 07/20/17 17:20 06:15 06:15 WBC 7.1 RBC 2.62 L Hgb 7.2 L Hct 24.3 L MCV 92.7 MCH 27.5 L MCHC 29.6 L RDW 16.4 H Plt Count 339 MPV 9.3 L Immature Gran % 0.6 Seg Neutrophils % 66.2 Lymphocytes % 24.6 Monocytes % 6.8 Eosinophils % 1.4 Basophils % 0.4 Neutrophils # 4.7 Lymphocytes # 1.8 Monocytes # 0.5 Eosinophils # 0.1 Basophils # 0.0 Nucleated RBCs/100 WBC 0.3 H PT 23.3 H INR 2.1 POC Glucose 236 H - Impressions Impressions Chest X-Ray 07/16/17 12:12 IMPRESSION: Increasing moderate left pleural effusion with increasing airspace opacity in the left lung. There is increasing subtle opacity in the mid to lower right lung as well which may reflect a layering pleural effusion. D/ / 07/16/2017 13:02:53 Allison Ojeda MD / ronak Interpreting Provider: Allison Ojeda MD - ABG Interpretation ABG results: ABG ABG pH 7.44 pH Units (7.32-7.45) 07/15/17 19:10 ABG pCO2 48 mmHg (35-45) H 07/15/17 19:10 ABG pO2 73 mmHg (85-104) L 07/15/17 19:10 ABG O2 Saturation 95 % (95-98) 07/15/17 19:10 PT/INR, D-dimer PT 23.3 Seconds (9.4-12.1) H 07/20/17 06:15 Consult Discharge Plan - Plan Referrals: Barbra Juarez MD [Primary Care Provider] - Prince Wolf MD [Family Provider] - <Ravindra Rodriguez - Last Filed: 07/20/17 08:16> Date of Encounter: 07/20/17 - Time Spent With Patient Total time spent is greater than 50% in coordination of care (as documented) at patient's floor/unit and/or counseling patient: - Constitutional Vitals: Abnormal lab results RBC 2.62 M/mcL (3.82-4.97) L 07/20/17 06:15 Hgb 7.2 g/dL (11.5-15.4) L 07/20/17 06:15 Hct 24.3 % (35.3-44.9) L 07/20/17 06:15 MCH 27.5 pg (28.0-33.3) L 07/20/17 06:15 MCHC 29.6 g/dL (31.6-35.5) L 07/20/17 06:15 RDW 16.4 % (11.5-14.5) H 07/20/17 06:15 MPV 9.3 fL (9.4-12.4) L 07/20/17 06:15 Nucleated RBCs/100 WBC 0.3 /100 WBC (0) H 07/20/17 06:15 PT 23.3 Seconds (9.4-12.1) H 07/20/17 06:15 APTT 56.0 Seconds (26.0-36.0) H 07/06/17 05:59 ABG pCO2 48 mmHg (35-45) H 07/15/17 19:10 ABG pO2 73 mmHg (85-104) L 07/15/17 19:10 ABG HCO3 33 mEq/L (21-27) H 07/15/17 19:10 ABG Total CO2 34 mEq/L (20-26) H 07/15/17 19:10 ABG Base Excess 7 mEq/L (-2 to 3) H 07/15/17 19:10 Glucose 146 mg/dL (70-105) H 07/20/17 06:15 POC Glucose 236 (58-89) H 07/19/17 17:20 Hemoglobin A1c 7.8 % (-5.6) H 07/08/17 00:55 Calcium 7.9 mg/dL (8.6-10.3) L 07/20/17 06:15 AST 8 Units/L (13-39) L 07/16/17 04:31 Alkaline Phosphatase 32 Units/L (34-104) L 07/16/17 04:31 Serum Total Protein 5.7 g/dL (6.4-8.9) L 07/16/17 04:31 Albumin 2.0 g/dL (3.5-5.7) L 07/16/17 04:31 Globulin 3.7 g/dL (2.4-3.5) H 07/16/17 04:31 Albumin/Globulin Ratio 0.5 (1.1-2.2) L 07/16/17 04:31 Cholesterol 210 mg/dL (< 200) H 07/06/17 05:59 LDL Cholesterol, Calc 145 mg/dL (0-99) H 07/06/17 05:59 HDL Cholesterol 38 mg/dL (40-59) L 07/06/17 05:59 Cholesterol/HDL Ratio 5.5 (0-4.9) H 07/06/17 05:59 Urine Blood Trace (Negative) H 07/15/17 13:20 Ur Leukocyte Esterase Trace (Negative) H 07/15/17 13:20 Urine Microscopic RBC 3-5 per hpf (0-3) H 07/15/17 13:20 Urine Microscopic WBC 3-5 per hpf (0-3) H 07/15/17 13:20 Ur Squamous Epith Cells Moderate per lpf (None-Few) H 07/15/17 13:20 Urine Yeast Few per hpf (None Seen) H 07/15/17 13:20 Ur Culture Indicated? YES (NO) A 07/15/17 13:20 Vancomycin Trough 20.9 mcg/mL (10-20) H* 07/18/17 16:23 Staphylococcus sp PCR DETECTED (Not Detect) A 07/14/17 07:56 Staph aureus (PCR) DETECTED (Not Detect) A 07/14/17 07:56 mecA-Methicil Res Gene DETECTED (Not Detect) A 07/14/17 07:56 - Attending Attestation I examined this patient and my medical decision-making was reviewed with the Resident Physician. I agree with the documented findings, disposition and treatment plan as described except to the extent set forth below. Palliative Quality Code Status: 07/16/17 14:43 DNR [Resuscitation Status: Active] [RES] Routine Comment: Resuscitation Status: [id number] - Labs CBC & Chem 7: 07/20/17 06:15 07/20/17 06:15 Labs: Laboratory Results - last 24 hr 07/18/17 07/19/17 07/19/17 18:41 08:29 11:32 WBC RBC Hgb Hct MCV MCH MCHC RDW Plt Count MPV Immature Gran % Seg Neutrophils % Lymphocytes % Monocytes % Eosinophils % Basophils % Neutrophils # Lymphocytes # Monocytes # Eosinophils # Basophils # Nucleated RBCs/100 WBC PT INR Sodium Potassium Chloride Carbon Dioxide BUN Creatinine Est GFR ( Amer) Est GFR (Non-Af Amer) BUN/Creatinine Ratio Glucose POC Glucose 225 H 201 H 270 H Calculated Osmolality Calcium Magnesium 07/19/17 07/20/17 07/20/17 17:20 06:15 06:15 WBC 7.1 RBC 2.62 L Hgb 7.2 L Hct 24.3 L MCV 92.7 MCH 27.5 L MCHC 29.6 L RDW 16.4 H Plt Count 339 MPV 9.3 L Immature Gran % 0.6 Seg Neutrophils % 66.2 Lymphocytes % 24.6 Monocytes % 6.8 Eosinophils % 1.4 Basophils % 0.4 Neutrophils # 4.7 Lymphocytes # 1.8 Monocytes # 0.5 Eosinophils # 0.1 Basophils # 0.0 Nucleated RBCs/100 WBC 0.3 H PT 23.3 H INR 2.1 Sodium Potassium Chloride Carbon Dioxide BUN Creatinine Est GFR ( Amer) Est GFR (Non-Af Amer) BUN/Creatinine Ratio Glucose POC Glucose 236 H Calculated Osmolality Calcium Magnesium 07/20/17 06:15 WBC RBC Hgb Hct MCV MCH MCHC RDW Plt Count MPV Immature Gran % Seg Neutrophils % Lymphocytes % Monocytes % Eosinophils % Basophils % Neutrophils # Lymphocytes # Monocytes # Eosinophils # Basophils # Nucleated RBCs/100 WBC PT INR Sodium 141 Potassium 3.8 Chloride 106 Carbon Dioxide 29 BUN 13 Creatinine 0.79 Est GFR ( Amer) > 60 Est GFR (Non-Af Amer) > 60 BUN/Creatinine Ratio 16 Glucose 146 H POC Glucose Calculated Osmolality 295 Calcium 7.9 L Magnesium 2.3 - Impressions Impressions Chest X-Ray 07/16/17 12:12
[2017-07-20] MEDS: Piperacillin/Tazobactam 3.375 GM/200 ML BAG IVPB SCH ×3 (07:43→20:30)
[2017-07-20] MEDS: *HR* Amiodarone 200 MG TABLET PO SCH (07:44)
[2017-07-20 08:02] LABS: BUN/Creatinine Ratio 16 (6-26); Blood Urea Nitrogen 13 mg/dL (8-23); Calcium 7.9 mg/dL (8.6-10.3); Carbon Dioxide 29 mEq/L (23-29); Chloride 106 mEq/L (98-107); Glucose 146 mg/dL (70-105); Magnesium 2.3 mg/dL (1.6-2.6); Osmolality,Calculated 295 (280-300); Potassium 3.8 mEq/L (3.5-5.1); Sodium 141 mEq/L (136-145); eGFR For African Americans > 60 (> 60); eGFR For Non-African Americans > 60 (> 60)
--- NOTE | 2017-07-20 08:10 | Internal Med Progress Note ---
<Jimmy Ryan - Last Filed: 07/20/17 08:07> Date of Encounter: 07/20/17 Time of Encounter: 08:07 - Assessment and plan (1) MRSA bacteremia Current Visit: Yes Status: Acute Assessment and plan: - Persistent MRSA bacteremia. -Positive blood cultures on 07/09, 07/10, 07/12, 07/14 for MRSA - Blood cultures drawn on 07/16 and 07/17 and 07/18 preliminary no growth - Has been on vancomycin with goal trough of 15-20, day 12 - No obvious source identified. - Urine culture growing dominic, fluconazole started. CXR show bilateral consolidation suspicious of PNA, mass/likely lipoma of right medial thigh on MRI - Sacral decubitus ulcers being evaluated and changed per wound care - TTE and GILBERTO negative for vegetations for possible endocarditis. Recommend repeat GILBERTO in 7-10days if symptoms persist. - ID consulted, appreciate recommendations. - Febrile temperature of 99.3 axillary overnight, otherwise vitals unremarkable. No white count - CT scan results 07/18/17 showing bilateral pleural effusions, interlobular septal thickening of lungs with ground glass opacities, mild ascites, high attenuation material within the gallbladder with mild distention, colonic diverticulosis without diverticulitis. -Bone scan revealed degenerative uptake of right hip possibly degenerative in nature versus infectious. Plan - Continue vancomycin and await final results of blood cultures - Per infectious disease, may switch to daptomycin if blood cultures continue to grow MRSA - Continue Zosyn coverage for possible aspiration pneumonia - Palliative consulted, code status changed to [id number] - Daily labs - ID consult - Contact precautions. - After speaking with nuclear medicine, we will pursue indium WBC scan to futher evalutate right hip but must wait until friday for Tc to clear system from bone scan (2) Acute cerebral infarction Current Visit: Yes Status: Acute Assessment and plan: - Acute right thalamic lacunar infarct as seen on brain MRI on 07/08/17 for right leg weakness - Scattered bilateral small infarcts suggestive of emboli of cardiac or septic etiology. - Neurology following appreciate recommendations. - Left carotid stenosis of 60-79%. - Per daughter, pt is not at baseline mental status. May also be attributable to infection vs metabolic etiologies. - Repeat Brain MRI on 07/16/17 showed no acute changes from previous. - Clinically may be mildly improved with less moaning and more eye contact. Plan - Continue statin, aspirin - Pt/OT when able. - Infectious disease recommended reconsult neurology, following. - Management of AMS and determine if alternative etiologies are contributing - Not a candidate for aggressive measures at this time due to other medical conditions and severity of other acute conditions. (3) Supratherapeutic INR Current Visit: Yes Status: Acute Assessment and plan: - INR of 8.7 on admission. - Most recently 2.1 this AM after receiving 2 units of fresh frozen plasma on Plan - Pharmacy to dose coumadin. History of CVA, goal of INR of 2-3 - Continue to monitor for signs of bleed. (4) Stage II pressure ulcer of buttock Current Visit: Yes Status: Acute Assessment and plan: per nursing. consult wound care. - Possible source of bacteremia. - Dressing changes. - Frequent bed turns. Qualifiers: Laterality: left Qualified Code(s): L89.322 - Pressure ulcer of left buttock, stage 2 (5) Altered mental status Current Visit: Yes Status: Acute Assessment and plan: - Etiology unclear at this time, likely multifactorial - Pain from femoral nerve compression vs acute cerebral infarct vs infectious vs pain vs possible psychological etiology Plan - Treat underlying infection. Currently on Zosyn and vancomycin - ABG unremarkable - Pain control - Consult neurology. - Possible new baseline, consulted palliative care - Continue mirtazipine tonight. Start seroqeul if able to take PO meds. Qualifiers: Altered mental status type: unspecified Qualified Code(s): R41.82 - Altered mental status, unspecified (6) Lipoma Current Visit: Yes Status: Acute Assessment and plan: - MRI of the right femur showed a large 21.3 x 9.8 x 7.7 cm fat signal mass. Not exactly sure this is the cause of her issues. - Surgery consulted, no intervention for now per surgery service due to her other more acute medical issues. Plan - Unlikely surgical candidate - Due to lobular nature of lipoma and size would likely have to remove entire lesion if this turns out to be the source of infection - Will monitor for now Qualifiers: Lipoma location: lower extremity Laterality: right Qualified Code(s): D17.23 - Benign lipomatous neoplasm of skin and subcutaneous tissue of right leg (7) Lumbar spinal stenosis Current Visit: Yes Status: Chronic Assessment and plan: Per CT scans. Has been seen by neurology. - No acute interventions while inpatient. - Pain control Qualifiers: Neurogenic claudication status: unspecified Qualified Code(s): M48.061 - Spinal stenosis, lumbar region without neurogenic claudication (8) Chronic kidney disease (CKD) stage G3a/A3, moderately decreased glomerular filtration rate (GFR) between 45-59 mL/min/1.73 square meter and albuminuria creatinine ratio greater than 300 mg/g Current Visit: Yes Status: Acute Assessment and plan: - Stage III per chart review. - BUN/Cr of 13/0.79 this AM - Calculated Creatinine clearance of 93 - Appears to be at baseline Plan - Monitor for fluid status - Avoid nephrotoxic agents - Continue vancomycin as benefit outweighs risk. Monitor and renally dose per pharmacy with goal trough of 15-20. (9) Anemia Current Visit: Yes Status: Acute Assessment and plan: - H/H of 7.2/24.3 this AM. Hgb of 7.3 yesterday - Likely a result of chronic disease, CKD III. Baseline 8-9 - Received 2 units during this admisssion - Unable to determine if symptomatic but has remained stable for past couple days Plan - Continue to monitor daily CBC - Transfuse as necessary Qualifiers: Anemia type: unspecified type Qualified Code(s): D64.9 - Anemia, unspecified (10) HCAP (healthcare-associated pneumonia) Current Visit: Yes Status: Acute Assessment and plan: - Concern for HCAP on CXR showing bilateral opacities - Aspiration coverage due to AMS - Febrile today at 99.3 axillary, no WBC. - Sputum cultures negative. Blood cultures as above. Strep and legionella negative. Plan - Continue vancomycin day 12, zosyn day 5. - Received 7 days of cefepime - Tylenol PRN fever. (11) Hypokalemia Current Visit: Yes Status: Acute Assessment and plan: Potassium of 3.8 this morning, 3.3 yesterday after 40 mEq -Has Received 40 mEq of potassium PRN hypokalemia. - Continue to monitor. (12) DVT prophylaxis Current Visit: Yes Status: Acute Assessment and plan: Coumadin. Pharmacy to dose. - Time Spent With Patient 25 - 35 minutes - Subjective Interval history: Patient was seen and examined at bedside this morning. Pt is more calm this morning, but continues to moan softly. She has been taking off her O2 NC which results in desaturation into the 60s. She does turn her head and make some eye contact which is new. Continues to not respond to questions and I am unable to make out words. - Constitutional Vitals: Temp Pulse Resp BP Pulse Ox 98.4 F 80 16 138/71 91 07/20/17 07:45 07/20/17 07:45 07/20/17 07:45 07/20/17 07:45 07/20/17 07:45 General appearance: Present: cooperative, mild distress, pleasant, obese, answers questions appropriately Exam: Gen.: Vitals noted. No acute distress. AAOx0. UNable to assess completely due to mental status. HEENT: PERRL/EOMI, oropharynx clear, Normocephalic, atraumatic Cardiac: RRR, no murmur, +S1/S2 Pulmonary: CTA bilaterally, no wheezes, rales or rhonchi, equal chest expansion. Diminished Abdomen: soft, possible mild tenderness, BS noted, no guarding MSK: ROM intact, no joint swelling noted Extremities: no BLE edema, nontender calf, no cyanosis or clubbing Neuro: A&Ox0, moves all extremities. Psych: Appropriate mood and behavior Internal Medicine: Result - Labs CBC & Chem 7: 07/20/17 06:15 07/20/17 06:15 Labs: Short CBC 07/20/17 Range/Units 06:15 WBC 7.1 (4.3-11.1) K/mcL Hgb 7.2 L (11.5-15.4) g/dL Hct 24.3 L (35.3-44.9) % Plt Count 339 (140-400) K/mcL Neutrophils # 4.7 (1.6-8.9) K/mcL BMP 07/20/17 06:15 Sodium 141 Potassium 3.8 Chloride 106 Carbon Dioxide 29 BUN 13 Creatinine 0.79 Glucose 146 H Calcium 7.9 L - ABG Interpretation ABG results: ABG ABG pH 7.44 pH Units (7.32-7.45) 07/15/17 19:10 ABG pCO2 48 mmHg (35-45) H 07/15/17 19:10 ABG pO2 73 mmHg (85-104) L 07/15/17 19:10 ABG O2 Saturation 95 % (95-98) 07/15/17 19:10 PT/INR, D-dimer PT 23.3 Seconds (9.4-12.1) H 07/20/17 06:15 - Impressions Impressions Chest X-Ray 07/16/17 12:12 IMPRESSION: Increasing moderate left pleural effusion with increasing airspace opacity in the left lung. There is increasing subtle opacity in the mid to lower right lung as well which may reflect a layering pleural effusion. D/ / 07/16/2017 13:02:53 Allison Ojeda MD / ronak Interpreting Provider: Allison Ojeda MD Consult Discharge Plan - Plan Referrals: Barbra Juarez MD [Primary Care Provider] - Prince Wolf MD [Family Provider] - <Jc Thompson A - Last Filed: 07/20/17 18:26> Date of Encounter: 07/20/17 - Assessment and plan (1) Acute metabolic encephalopathy Current Visit: Yes Status: Acute (2) MRSA (methicillin resistant Staphylococcus aureus) infection Current Visit: Yes Status: Acute (3) MRSA bacteremia Current Visit: Yes Status: Acute (4) Thrush, oral Current Visit: Yes Status: Acute (5) Cerebrovascular accident (CVA) due to bilateral embolism of anterior cerebral arteries Current Visit: Yes Status: Acute (6) Chronic kidney disease (CKD) stage G3a/A3, moderately decreased glomerular filtration rate (GFR) between 45-59 mL/min/1.73 square meter and albuminuria creatinine ratio greater than 300 mg/g Current Visit: Yes Status: Acute (7) CHF (congestive heart failure) Current Visit: Yes Status: Chronic Qualifiers: Congestive heart failure type: systolic Congestive heart failure chronicity : chronic Qualified Code(s): I50.22 - Chronic systolic (congestive) heart failure (8) Right hip pain Current Visit: Yes Status: Acute (9) COPD (chronic obstructive pulmonary disease) Current Visit: Yes Status: Chronic Qualifiers: COPD type: unspecified COPD Qualified Code(s): J44.9 - Chronic obstructive pulmonary disease, unspecified (10) Afib Current Visit: No Status: Chronic Qualifiers: Atrial fibrillation type: paroxysmal Qualified Code(s): I48.0 - Paroxysmal atrial fibrillation (11) CAD (coronary artery disease) Current Visit: No Status: Chronic Qualifiers: Coronary Disease-Associated Artery/Lesion type: [place] artery [place] vs. transplanted heart: [place] heart Associated angina: without angina Qualified Code(s): I25.10 - Atherosclerotic heart disease of [place] coronary artery without angina pectoris - Constitutional Vitals: Temp Pulse Resp BP Pulse Ox 98.6 F 65 14 128/64 99 07/20/17 11:00 07/20/17 14:46 07/20/17 14:46 07/20/17 14:46 07/20/17 14:46 Internal Medicine: Result - Labs CBC & Chem 7: 07/20/17 06:15 07/20/17 06:15 Labs: Short CBC 07/20/17 Range/Units 06:15 WBC 7.1 (4.3-11.1) K/mcL Hgb 7.2 L (11.5-15.4) g/dL Hct 24.3 L (35.3-44.9) % Plt Count 339 (140-400) K/mcL Neutrophils # 4.7 (1.6-8.9) K/mcL BMP 07/20/17 06:15 Sodium 141 Potassium 3.8 Chloride 106 Carbon Dioxide 29 BUN 13 Creatinine 0.79 Glucose 146 H Calcium 7.9 L - ABG Interpretation ABG results: ABG ABG pH 7.44 pH Units (7.32-7.45) 07/15/17 19:10 ABG pCO2 48 mmHg (35-45) H 07/15/17 19:10 ABG pO2 73 mmHg (85-104) L 07/15/17 19:10 ABG O2 Saturation 95 % (95-98) 07/15/17 19:10 PT/INR, D-dimer PT 23.3 Seconds (9.4-12.1) H 07/20/17 06:15 - Attending Attestation I examined this patient and my medical decision-making was reviewed with the Resident Physician on 07/20/17. I agree with the documented findings, disposition and treatment plan as described except to the extent set forth below. Ms New is currently admitted for acute encephalopathy and MRSA bacteremia. She remains moderate to high risk due to potential for worsening clinical status. Ms New appears to be a little more comfortable today. No fever. Blood cx still negative. Still tearful at times. Exam Alert. Mild distress Mucus membranes dry Heart not tachy Lungs diminished Abd soft I/P 1. Encephalopathy 2. MRSA bacteremia PICC tomorrow. Further diagnoses and plan as above.
[2017-07-20] MEDS ORDERED: Mirtazapine 15 MG TABLET PO PRN (11:26)
[2017-07-20] MEDS: Vancomycin 1,500 MG in D5% in Water 250 ML IVPB SCH (14:38)
[2017-07-20] MEDS: *HR* FentaNYL PATCH 25 MCG PATCH TD SCH (14:39)
[2017-07-21] MEDS: *HR* LORazepam 2 MG/ML VIAL IVP PRN ×4 (02:15→20:42)
[2017-07-21] MEDS: *HR* HYDROmorphone (PF) 1 MG/ML SYRINGE IVP PRN ×6 (02:29→21:24)
[2017-07-21] MEDS: Piperacillin/Tazobactam 3.375 GM/200 ML BAG IVPB SCH ×3 (05:00→20:54)
[2017-07-21 05:39] LABS: INR 2.4; Prothrombin Time 26.2 Seconds (9.4-12.1)
[2017-07-21 05:43] LABS: BUN/Creatinine Ratio 15 (6-26); Blood Urea Nitrogen 13 mg/dL (8-23); Calcium 8.2 mg/dL (8.6-10.3); Carbon Dioxide 29 mEq/L (23-29); Chloride 105 mEq/L (98-107); Glucose 163 mg/dL (70-105); Osmolality,Calculated 296 (280-300); Potassium 3.9 mEq/L (3.5-5.1); Sodium 141 mEq/L (136-145); eGFR For African Americans > 60 (> 60); eGFR For Non-African Americans > 60 (> 60)
[2017-07-21 06:19] LABS: Basophils % 0.4 %; Eosinophils # 0.1 K/mcL (0.0-0.6); Eosinophils % 1.4 %; Hematocrit 27.5 % (35.3-44.9); Hemoglobin 8.3 g/dL (11.5-15.4); Immature Granulocytes % 0.3 % (0-4); Lymphocytes # 2.6 K/mcL (0.6-4.6); Lymphocytes % 25.8 %; Mean Corpuscular HGB Conc 30.2 g/dL (31.6-35.5); Mean Corpuscular Hemoglobin 28.2 pg (28.0-33.3); Mean Corpuscular Volume 93.5 fL (83.0-100.0); Mean Platelet Volume 9.4 fL (9.4-12.4); Monocytes # 0.6 K/mcL (0.0-1.3); Monocytes % 5.8 %; Neutrophils # 6.7 K/mcL (1.6-8.9); Platelet Count 419 K/mcL (140-400); Red Blood Count 2.94 M/mcL (3.82-4.97); Red Cell Distribution Width 16.7 % (11.5-14.5); Segmented Neutrophils % 66.3 %
[2017-07-21] MEDS: Silvasorb 44.4 ML TUBE TP SCH (06:47)
[2017-07-21] MEDS: Insulin LISPRO 300 UNITS/3 ML VIAL SQ SCH ×4 (07:42→20:52)
[2017-07-21] MEDS: Nitroglycerin 0.4 MG PATCH.TD24 TD SCH (07:42)
[2017-07-21] MEDS: *HR* Amiodarone 200 MG TABLET PO SCH (07:46)
[2017-07-21] MEDS: Nystatin SUSP 5 ML UD.LIQ PO SCH ×4 (07:46→20:53)
--- NOTE | 2017-07-21 09:33 | Palliative Progress Note ---
Date of Encounter: 07/21/17 Time of Encounter: 09:00 - Assessment and plan (1) Arthritis Current Visit: Yes Status: Acute Assessment and plan: Cultures are negative preliminarily at this time. Tagged white cell study is at least being anticipated for tomorrow. New current meds for pain. (2) Failure to thrive in adult Current Visit: Yes Status: Acute Assessment and plan: She has a very poor oral intake, however per the family she normally does not eat very much anyway. Urge by mouth intake. Family states feeding tubes are not an option. In any case I believe the patient would pull them out. (3) Goals of care, counseling/discussion Current Visit: Yes Status: Acute Assessment and plan: DNR/DNI. I will continue to follow. Patient has very poor oral intake and feeding tubes or not an option patient may end up being upright for more of a comfort care type situation. We will discuss further as we know what is going on with regard to infectious disease. (4) Altered mental status Current Visit: Yes Status: Acute Assessment and plan: This is undoubtedly multifactorial. She has required medications to calm down the situation. May be primarily pain related with regard to her hip however Ativan at a low dose may not be unreasonable in addition to the when necessary' s. Have discussed this with the area and also recommend patient have humidified oxygen. Qualifiers: Altered mental status type: unspecified Qualified Code(s): R41.82 - Altered mental status, unspecified - Time Spent With Patient Total time spent is greater than 50% in coordination of care (as documented) at patient's floor/unit and/or counseling patient: - Subjective Interval history: Yesterday he had a rough day taking off all of her oxygen monitors etc. at this time she is resting comfortably. - Constitutional Vitals: Abnormal lab results RBC 2.94 M/mcL (3.82-4.97) L 07/21/17 05:15 Hgb 8.3 g/dL (11.5-15.4) L 07/21/17 05:15 Hct 27.5 % (35.3-44.9) L 07/21/17 05:15 MCHC 30.2 g/dL (31.6-35.5) L 07/21/17 05:15 RDW 16.7 % (11.5-14.5) H 07/21/17 05:15 Plt Count 419 K/mcL (140-400) H 07/21/17 05:15 Nucleated RBCs/100 WBC 0.3 /100 WBC (0) H 07/20/17 06:15 PT 26.2 Seconds (9.4-12.1) H 07/21/17 05:15 APTT 56.0 Seconds (26.0-36.0) H 07/06/17 05:59 ABG pCO2 48 mmHg (35-45) H 07/15/17 19:10 ABG pO2 73 mmHg (85-104) L 07/15/17 19:10 ABG HCO3 33 mEq/L (21-27) H 07/15/17 19:10 ABG Total CO2 34 mEq/L (20-26) H 07/15/17 19:10 ABG Base Excess 7 mEq/L (-2 to 3) H 07/15/17 19:10 Glucose 163 mg/dL (70-105) H 07/21/17 05:15 POC Glucose 171 (58-89) H 07/20/17 21:52 Hemoglobin A1c 7.8 % (-5.6) H 07/08/17 00:55 Calcium 8.2 mg/dL (8.6-10.3) L 07/21/17 05:15 AST 8 Units/L (13-39) L 07/16/17 04:31 Alkaline Phosphatase 32 Units/L (34-104) L 07/16/17 04:31 Serum Total Protein 5.7 g/dL (6.4-8.9) L 07/16/17 04:31 Albumin 2.0 g/dL (3.5-5.7) L 07/16/17 04:31 Globulin 3.7 g/dL (2.4-3.5) H 07/16/17 04:31 Albumin/Globulin Ratio 0.5 (1.1-2.2) L 07/16/17 04:31 Cholesterol 210 mg/dL (< 200) H 07/06/17 05:59 LDL Cholesterol, Calc 145 mg/dL (0-99) H 07/06/17 05:59 HDL Cholesterol 38 mg/dL (40-59) L 07/06/17 05:59 Cholesterol/HDL Ratio 5.5 (0-4.9) H 07/06/17 05:59 Urine Blood Trace (Negative) H 07/15/17 13:20 Ur Leukocyte Esterase Trace (Negative) H 07/15/17 13:20 Urine Microscopic RBC 3-5 per hpf (0-3) H 07/15/17 13:20 Urine Microscopic WBC 3-5 per hpf (0-3) H 07/15/17 13:20 Ur Squamous Epith Cells Moderate per lpf (None-Few) H 07/15/17 13:20 Urine Yeast Few per hpf (None Seen) H 07/15/17 13:20 Ur Culture Indicated? YES (NO) A 07/15/17 13:20 Vancomycin Trough 20.9 mcg/mL (10-20) H* 07/18/17 16:23 Staphylococcus sp PCR DETECTED (Not Detect) A 07/14/17 07:56 Staph aureus (PCR) DETECTED (Not Detect) A 07/14/17 07:56 mecA-Methicil Res Gene DETECTED (Not Detect) A 07/14/17 07:56 General appearance: Present: no acute distress - Head Head exam: Present: atraumatic, normal inspection - Eye Eye exam: Present: normal appearance - ENT ENT exam: Present: mucous membranes moist - Respiratory Respiratory exam: Present: decreased breath sounds, rales (Slight crackles although it is difficult to hear with the stethoscope available) - Cardiovascular Cardiovascular exam: Present: RRR - GI/Abdominal GI/Abdominal exam: Present: normal bowel sounds, soft. Absent: tenderness - Neurological Exam Neurological exam: Absent: alert (She is asleep at this time I understand she awakens easily. Will not disturb. Beyond already done) - Psychiatric Psychiatric exam: Present: agitated (Was yesterday) - Skin Skin exam: Present: dry, warm Palliative Quality Palliative Quality: Screen for Code Status: Yes, Screen for Goals of Care: Yes, Screen for Pain: Yes, If Pain Regimen Started, Initiate Bowel Regimen: Yes, Screen for Nausea/Vomitting: Yes Code Status: 07/16/17 14:43 DNR [Resuscitation Status: Active] [RES] Routine Comment: Resuscitation Status: [id number] - Labs CBC & Chem 7: 07/21/17 05:15 07/21/17 05:15 Labs: Laboratory Results - last 24 hr 07/19/17 07/20/17 07/20/17 22:20 07:50 11:35 WBC RBC Hgb Hct MCV MCH MCHC RDW Plt Count MPV Immature Gran % Seg Neutrophils % Lymphocytes % Monocytes % Eosinophils % Basophils % Neutrophils # Lymphocytes # Monocytes # Eosinophils # Basophils # PT INR Sodium Potassium Chloride Carbon Dioxide BUN Creatinine Est GFR ( Amer) Est GFR (Non-Af Amer) BUN/Creatinine Ratio Glucose POC Glucose 189 H 158 H 133 H Calculated Osmolality Calcium 07/20/17 07/20/17 07/21/17 15:55 21:52 05:15 WBC RBC Hgb Hct MCV MCH MCHC RDW Plt Count MPV Immature Gran % Seg Neutrophils % Lymphocytes % Monocytes % Eosinophils % Basophils % Neutrophils # Lymphocytes # Monocytes # Eosinophils # Basophils # PT 26.2 H INR 2.4 Sodium Potassium Chloride Carbon Dioxide BUN Creatinine Est GFR ( Amer) Est GFR (Non-Af Amer) BUN/Creatinine Ratio Glucose POC Glucose 163 H 171 H Calculated Osmolality Calcium 07/21/17 07/21/17 05:15 05:15 WBC 10.1 RBC 2.94 L Hgb 8.3 L Hct 27.5 L MCV 93.5 MCH 28.2 MCHC 30.2 L RDW 16.7 H Plt Count 419 H MPV 9.4 Immature Gran % 0.3 Seg Neutrophils % 66.3 Lymphocytes % 25.8 Monocytes % 5.8 Eosinophils % 1.4 Basophils % 0.4 Neutrophils # 6.7 Lymphocytes # 2.6 Monocytes # 0.6 Eosinophils # 0.1 Basophils # 0.0 PT INR Sodium 141 Potassium 3.9 Chloride 105 Carbon Dioxide 29 BUN 13 Creatinine 0.84 Est GFR ( Amer) > 60 Est GFR (Non-Af Amer) > 60 BUN/Creatinine Ratio 15 Glucose 163 H POC Glucose Calculated Osmolality 296 Calcium 8.2 L - Impressions Impressions Brain MRI 07/16/17 15:16 IMPRESSION: Motion degraded study. No significant change in small, acute infarcts in the bilateral [place] radiata and centrum semiovale, which may reflect acute, lacunar infarcts. No new infarct is seen. Mild chronic microvascular ischemic disease. D/ / 07/16/2017 19:30:50 Juan Jose Ojeda MD / scarlett Interpreting Provider: Juan Jose Ojeda MD - ABG Interpretation ABG results: ABG ABG pH 7.44 pH Units (7.32-7.45) 07/15/17 19:10 ABG pCO2 48 mmHg (35-45) H 07/15/17 19:10 ABG pO2 73 mmHg (85-104) L 07/15/17 19:10 ABG O2 Saturation 95 % (95-98) 07/15/17 19:10 PT/INR, D-dimer PT 26.2 Seconds (9.4-12.1) H 07/21/17 05:15 Consult Discharge Plan - Plan Referrals: Barbra Juarez MD [Primary Care Provider] - Prince Wolf MD [Family Provider] -
--- NOTE | 2017-07-21 09:34 | Internal Med Progress Note ---
<Jimmy Ryan - Last Filed: 07/21/17 15:14> Date of Encounter: 07/21/17 Time of Encounter: 09:32 - Assessment and plan (1) MRSA bacteremia Current Visit: Yes Status: Acute Assessment and plan: - Persistent MRSA bacteremia. -Positive blood cultures on 07/09, 07/10, 07/12, 07/14 for MRSA - Blood cultures drawn on 07/16 and 07/17 and 07/18 preliminary no growth - Has been on vancomycin with goal trough of 15-20, day 13 - No obvious source identified. - Urine culture growing dominic, fluconazole started. CXR show bilateral consolidation suspicious of PNA, mass/likely lipoma of right medial thigh on MRI - Sacral decubitus ulcers being evaluated and changed per wound care - TTE and GILBERTO negative for vegetations for possible endocarditis. Recommend repeat GILBERTO in 7-10days if symptoms persist. - ID consulted, appreciate recommendations. - AFebrile overnight, vitals unremarkable. No white count - CT scan results 07/18/17 showing bilateral pleural effusions, interlobular septal thickening of lungs with ground glass opacities, mild ascites, high attenuation material within the gallbladder with mild distention, colonic diverticulosis without diverticulitis. -Bone scan revealed degenerative uptake of right hip possibly degenerative in nature versus infectious. Plan - Continue vancomycin and await final results of blood cultures - Per infectious disease, may switch to daptomycin if blood cultures continue to grow MRSA - Continue Zosyn coverage for possible aspiration pneumonia - Palliative consulted, code status changed to [id number] - Daily labs - ID consult - Contact precautions. - After speaking with nuclear medicine, we will pursue indium WBC scan to futher evalutate right hip but must wait until friday for Tc to clear system from bone scan. Will not pursue at this time as long as blood cultures remain negative. (2) Acute cerebral infarction Current Visit: Yes Status: Acute Assessment and plan: - Acute right thalamic lacunar infarct as seen on brain MRI on 07/08/17 for right leg weakness - Scattered bilateral small infarcts suggestive of emboli of cardiac or septic etiology. - Neurology following appreciate recommendations. - Left carotid stenosis of 60-79%. - Per daughter, pt is not at baseline mental status. May also be attributable to infection vs metabolic etiologies. - Repeat Brain MRI on 07/16/17 showed no acute changes from previous. - Clinically may be mildly improved with less moaning and more eye contact. Sleeping during exam. Plan - Continue statin, aspirin - Pt/OT when able. - Infectious disease recommended reconsult neurology, following. - Management of AMS and determine if alternative etiologies are contributing - Not a candidate for aggressive measures at this time due to other medical conditions and severity of other acute conditions. (3) Supratherapeutic INR Current Visit: Yes Status: Resolved Assessment and plan: - INR of 8.7 on admission. - Most recently 2.4 this AM after receiving 2 units of fresh frozen plasma on Plan - Pharmacy to dose coumadin. History of CVA, goal of INR of 2-3 - Continue to monitor for signs of bleed. (4) Stage II pressure ulcer of buttock Current Visit: Yes Status: Acute Assessment and plan: per nursing. consult wound care. - Possible source of bacteremia. - Dressing changes. - Frequent bed turns. Qualifiers: Laterality: left Qualified Code(s): L89.322 - Pressure ulcer of left buttock, stage 2 (5) Altered mental status Current Visit: Yes Status: Acute Assessment and plan: - Etiology unclear at this time, likely multifactorial - Pain from femoral nerve compression vs acute cerebral infarct vs infectious vs pain vs possible psychological etiology - May be mildly improving. Unsure new baseline. Discussion with family regarding future goals of care. Plan - Treat underlying infection. Currently on Zosyn and vancomycin - Pain control - Consult neurology. - Possible new baseline, consulted palliative care - Continue mirtazipine tonight. Start seroqeul if able to take PO meds. Qualifiers: Altered mental status type: unspecified Qualified Code(s): R41.82 - Altered mental status, unspecified (6) Lipoma Current Visit: Yes Status: Acute Assessment and plan: - MRI of the right femur showed a large 21.3 x 9.8 x 7.7 cm fat signal mass. Not exactly sure this is the cause of her issues. - Surgery consulted, no intervention for now per surgery service due to her other more acute medical issues. Plan - Unlikely surgical candidate - Due to lobular nature of lipoma and size would likely have to remove entire lesion if this turns out to be the source of infection - Will monitor for now Qualifiers: Lipoma location: lower extremity Laterality: right Qualified Code(s): D17.23 - Benign lipomatous neoplasm of skin and subcutaneous tissue of right leg (7) Lumbar spinal stenosis Current Visit: Yes Status: Chronic Assessment and plan: Per CT scans. Has been seen by neurology. - No acute interventions while inpatient. - Pain control Qualifiers: Neurogenic claudication status: unspecified Qualified Code(s): M48.061 - Spinal stenosis, lumbar region without neurogenic claudication (8) Chronic kidney disease (CKD) stage G3a/A3, moderately decreased glomerular filtration rate (GFR) between 45-59 mL/min/1.73 square meter and albuminuria creatinine ratio greater than 300 mg/g Current Visit: Yes Status: Acute Assessment and plan: - Stage III per chart review. - BUN/Cr of 13/0.84 this AM - Calculated Creatinine clearance of 93 - Appears to be at baseline Plan - Monitor for fluid status - Avoid nephrotoxic agents - Continue vancomycin as benefit outweighs risk. Monitor and renally dose per pharmacy with goal trough of 15-20. (9) Anemia Current Visit: Yes Status: Acute Assessment and plan: - H/H of 8.3/27.5 this AM. Hgb of 7.2 yesterday - Likely a result of chronic disease, CKD III. Baseline 8-9 - Received 2 units during this admisssion - Unable to determine if symptomatic but has remained stable for past couple days Plan - Continue to monitor daily CBC - Transfuse as necessary Qualifiers: Anemia type: unspecified type Qualified Code(s): D64.9 - Anemia, unspecified (10) HCAP (healthcare-associated pneumonia) Current Visit: Yes Status: Acute Assessment and plan: - Concern for HCAP on CXR showing bilateral opacities - Aspiration coverage due to AMS - aFebrile, no WBC. - Sputum cultures negative. Blood cultures as above. Strep and legionella negative. Plan - Continue vancomycin day 13, zosyn day 6. - Received 7 days of cefepime - Tylenol PRN fever. (11) Hypokalemia Current Visit: Yes Status: Acute Assessment and plan: Potassium of 3.9 this morning, 3.8 yesterday after 40 mEq -Will replenish with 40 mEq of potassium PRN hypokalemia. - Continue to monitor. (12) DVT prophylaxis Current Visit: Yes Status: Acute Assessment and plan: Coumadin. Pharmacy to dose. - Time Spent With Patient 25 - 35 minutes - Subjective Interval history: Patient was seen and examined at bedside this morning. Pt is more calm this morning, sleeping soundly. Daughter and son at bedside state she was agitated yesterday but better today. No complaints at this time. They were wondering if humidified O2 would be better for patient. Discussion with daughter regarding goals of care and possible feeding tube. Daughter will discuss with her brother for possible PEG tube. - Constitutional Vitals: Temp Pulse Resp BP Pulse Ox 98.6 F 74 17 123/75 100 07/21/17 06:00 07/21/17 06:00 07/21/17 06:00 07/21/17 06:00 07/21/17 06:00 General appearance: Present: cooperative, mild distress, pleasant, obese, answers questions appropriately Exam: Gen.: Vitals noted. No acute distress. AAOx0. Sleeping soundly. HEENT: PERRL/EOMI, oropharynx clear, Normocephalic, atraumatic, MMM Cardiac: irregular. no murmur, +S1/S2 Pulmonary: Mild rales diffusely. Otherwise CTA bilaterally, no wheezes, rales or rhonchi, equal chest expansion Abdomen: soft, nontender, BS noted, no guarding MSK: ROM intact, no joint swelling noted Extremities: no BLE edema, nontender calf, no cyanosis or clubbing Neuro: A&Ox0, unable to assess to due mental status. Psych: Appropriate mood and behavior Internal Medicine: Result - Labs CBC & Chem 7: 07/21/17 05:15 07/21/17 05:15 Labs: Short CBC 07/21/17 Range/Units 05:15 WBC 10.1 (4.3-11.1) K/mcL Hgb 8.3 L (11.5-15.4) g/dL Hct 27.5 L (35.3-44.9) % Plt Count 419 H (140-400) K/mcL Neutrophils # 6.7 (1.6-8.9) K/mcL BMP 07/21/17 05:15 Sodium 141 Potassium 3.9 Chloride 105 Carbon Dioxide 29 BUN 13 Creatinine 0.84 Glucose 163 H Calcium 8.2 L - ABG Interpretation ABG results: ABG ABG pH 7.44 pH Units (7.32-7.45) 07/15/17 19:10 ABG pCO2 48 mmHg (35-45) H 07/15/17 19:10 ABG pO2 73 mmHg (85-104) L 07/15/17 19:10 ABG O2 Saturation 95 % (95-98) 07/15/17 19:10 PT/INR, D-dimer PT 26.2 Seconds (9.4-12.1) H 07/21/17 05:15 - Impressions Impressions Brain MRI 07/16/17 15:16 IMPRESSION: Motion degraded study. No significant change in small, acute infarcts in the bilateral mcdowell radiata and centrum semiovale, which may reflect acute, lacunar infarcts. No new infarct is seen. Mild chronic microvascular ischemic disease. D/ / 07/16/2017 19:30:50 Juan Jose Ojeda MD / bcarter Interpreting Provider: Juan Jose Ojeda MD Consult Discharge Plan - Plan Referrals: Barbra Juarez MD [Primary Care Provider] - Prince Wolf MD [Family Provider] - <Jc Thompson - Last Filed: 07/21/17 18:25> Date of Encounter: 07/21/17 - Assessment and plan (1) Acute metabolic encephalopathy Current Visit: Yes Status: Acute (2) MRSA (methicillin resistant Staphylococcus aureus) infection Current Visit: Yes Status: Acute (3) MRSA bacteremia Current Visit: Yes Status: Acute (4) Thrush, oral Current Visit: Yes Status: Acute (5) Cerebrovascular accident (CVA) due to bilateral embolism of anterior cerebral arteries Current Visit: Yes Status: Acute (6) Chronic kidney disease (CKD) stage G3a/A3, moderately decreased glomerular filtration rate (GFR) between 45-59 mL/min/1.73 square meter and albuminuria creatinine ratio greater than 300 mg/g Current Visit: Yes Status: Acute (7) CHF (congestive heart failure) Current Visit: Yes Status: Chronic Qualifiers: Congestive heart failure type: systolic Congestive heart failure chronicity : chronic Qualified Code(s): I50.22 - Chronic systolic (congestive) heart failure (8) Right hip pain Current Visit: Yes Status: Acute (9) COPD (chronic obstructive pulmonary disease) Current Visit: Yes Status: Chronic Qualifiers: COPD type: unspecified COPD Qualified Code(s): J44.9 - Chronic obstructive pulmonary disease, unspecified (10) Afib Current Visit: No Status: Chronic Qualifiers: Atrial fibrillation type: paroxysmal Qualified Code(s): I48.0 - Paroxysmal atrial fibrillation (11) CAD (coronary artery disease) Current Visit: No Status: Chronic Qualifiers: Coronary Disease-Associated Artery/Lesion type: [place] artery [place] vs. transplanted heart: [place] heart Associated angina: without angina Qualified Code(s): I25.10 - Atherosclerotic heart disease of [place] coronary artery without angina pectoris - Constitutional Vitals: Temp Pulse Resp BP Pulse Ox 99.1 F 74 17 137/69 98 07/21/17 15:07 07/21/17 15:07 07/21/17 15:07 07/21/17 15:07 07/21/17 15:07 Internal Medicine: Result - Labs CBC & Chem 7: 07/21/17 05:15 07/21/17 05:15 Labs: Short CBC 07/21/17 Range/Units 05:15 WBC 10.1 (4.3-11.1) K/mcL Hgb 8.3 L (11.5-15.4) g/dL Hct 27.5 L (35.3-44.9) % Plt Count 419 H (140-400) K/mcL Neutrophils # 6.7 (1.6-8.9) K/mcL BMP 07/21/17 05:15 Sodium 141 Potassium 3.9 Chloride 105 Carbon Dioxide 29 BUN 13 Creatinine 0.84 Glucose 163 H Calcium 8.2 L - ABG Interpretation ABG results: ABG ABG pH 7.44 pH Units (7.32-7.45) 07/15/17 19:10 ABG pCO2 48 mmHg (35-45) H 07/15/17 19:10 ABG pO2 73 mmHg (85-104) L 07/15/17 19:10 ABG O2 Saturation 95 % (95-98) 07/15/17 19:10 PT/INR, D-dimer PT 26.2 Seconds (9.4-12.1) H 07/21/17 05:15 - Impressions Impressions Brain MRI 07/16/17 15:16 IMPRESSION: Motion degraded study. No significant change in small, acute infarcts in the bilateral mcdowell radiata and centrum semiovale, which may reflect acute, lacunar infarcts. No new infarct is seen. Mild chronic microvascular ischemic disease. D/ / 07/16/2017 19:30:50 Juan Jose Ojeda MD / [email or web address] Interpreting Provider: Juan Jose Ojeda MD Gallbladder Ultrasound 07/18/17 09:00 IMPRESSION: Sludge and several small stones seen within the gallbladder with mild gallbladder wall thickening. The patient did not have a positive sonographic Coyle's sign. There is no definitive evidence for acute cholecystitis. If further evaluation is needed, recommend HIDA scan. D/ / 07/18/2017 09:03:33 Wai Andrade MD / [email or web address] Interpreting Provider: Wai Andrade MD - Attending Attestation I examined this patient and my medical decision-making was reviewed with the Resident Physician on 07/21/17. I agree with the documented findings, disposition and treatment plan as described except to the extent set forth below. Ms New is currently admitted for MRSA bacteremia and encephalopathy. She remains moderate to high risk due to potential for worsening clinical status. Ms New is more alert and interactive today. She followed some commands. No fever. Has not been eating. Daughter at bedside. Exam Alert. Mod distress with movement. Heart not tachy Lungs diminished Abd soft I/P 1. MRSA bacteremia - cultures neg thus far. PICC placed 2. Encephalopathy Pt not eating - discussed issue with daughter. ? PEG at this time. Further diagnoses and plan as above.
--- NOTE | 2017-07-21 10:13 | Infectious Disease Progress No ---
Date of Encounter: 07/21/17 Time of Encounter: 10:11 - Assessment and Plan (1) MRSA bacteremia Current Visit: Yes Status: Acute Causative organism: MRSA. Source not clear. The patient did have a femur MRI that showed moderate volume of fluid in the right greater trochanteric bursa, but no evidence of septic arthritis. Joint aspiration negative for septic arthritis as well. The patient had a CT of the chest, abdomen, and pelvis, as well as a nuclear medicine bone scan. No definitive source of the MRSA bacteremia, but the patient was noted to have significant bilateral pleural effusions. Additionally, review of the bone scan shows increased uptake in the right hip per the hospitalist team's review of the imaging. Radiology recommends WBC scan to further evaluate, but recommend holding off for now as it likely won't change the course of the patient's treatment. Blood cultures drawn 07/08/17 grew MRSA, 2/2 sets. Additional blood cultures drawn 07/09/17 were positive 2/2 sets as well. Repeat blood cultures drawn 07/10/17 x 1 set and 07/12/17 x 1 set are also positive. Additional blood cultures drawn 07/14/17 are positive 1/2 sets. Repeat blood cultures drawn 07/16/17 are NGTD x 2 sets. Additional blood cultures drawn 07/17/17 are NGTD x 2 sets. The patient has one major and one minor Modified Lindsay's Criteria. TTE negative for vegetations. No endocarditis stigmata noted on exam. GILBERTO negative. CODY of Vanc is 1, so it is unlikely that the patient is failing Vanc due to high CODY. Etiology of persistent bacteremia not clear, but the last positive set of blood cultures were drawn <48 hours after the patient had therapeutic Vanc trough, which could also be contributing to this. Most recent set of blood cultures are negative so far. Continue Vancomycin IV. Pharmacy to dose. Goal trough ~15. Vanc trough 20.9. Duration of treatment depends on the clinical picture. Monitor renal function and for drug toxicity and dose-adjust antibiotics. Okay to consult VAT for PICC line placement when patient is able to undergo the procedure. (2) Altered mental status Current Visit: Yes Status: Acute Likely secondary to acute lacunar infarct and worsened by infectious process and medications. CT head negative, but MRI of the brain showed multiple small infarcts in the bilateral mcdowell radiata and centrum semiovale compatible with bilateral acute lacunar infarcts. Neurology consulted. CT head and brain MRI repeated 07/16/17, but do not show any new findings. Marginally improved per family. The patient appears in less distress this morning and is actually resting at this time. Continue to monitor closely. Qualifiers: Altered mental status type: unspecified Qualified Code(s): R41.82 - Altered mental status, unspecified (3) Lacunar infarct, acute Current Visit: Yes Status: Acute (4) Lipoma Current Visit: Yes Status: Acute Location: Right thigh. CT scan of the right hip showed a partially visualized fat density mass in the psoterior aspect of the proximal right thigh with thin internal septations, most likely representing a lipoma or benign atypical lipomatous tumor. MRI of the right femur again showed findings consistent with lipoma vs. benign atypical lipomatous tumor with significant mass effect the hamstring musculature. Qualifiers: Lipoma location: lower extremity Laterality: right Qualified Code(s): D17.23 - Benign lipomatous neoplasm of skin and subcutaneous tissue of right leg (5) Supratherapeutic INR Current Visit: Yes Status: Resolved Improved. Further workup and evaluation per the primary team. (6) Chronic kidney disease (CKD) stage G3a/A3, moderately decreased glomerular filtration rate (GFR) between 45-59 mL/min/1.73 square meter and albuminuria creatinine ratio greater than 300 mg/g Current Visit: Yes Status: Acute Serum creatinine normal at this time. Continue to trend. Dose-adjust antibiotics as needed. Avoid nephrotoxins as able. (7) Chronic pain syndrome Current Visit: Yes Status: Acute Patient has had multiple MRIs and CT scans of the cervical, lumbar, thoracic spine and hips which revealed degenerative arthritis with no acute infectious process. (8) Arthritis Current Visit: Yes Status: Acute (9) Diabetes mellitus type 2 in obese Current Visit: No Status: Chronic Recommend aggressive glucose monitoring and control. Management per the primary team. 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 There was also a moderate volume of fluid in the right greater trochanteric bursa. Ortho consulted and appreciate their recommendations. Status post right hip bursa aspiration. Did not appear to be pus. Gram stain and culture negative. Status post nuclear medicine bone scan that is concerning for increased uptake in the right hip and pelvis per the hospitalist team's review of the films. Radiology recommends WBC scan. Recommend holding off on WBC scan for now as it likely will not change the course of the patient's treatment. Pain management per the primary team. (11) HCAP (healthcare-associated pneumonia) Current Visit: Yes Status: Acute CXR completed 07/08/17 showed findings suspicious for bibasilar atelectasis or PNA. Not sure if the patient truly has PNA or not. Currently on day 7 of Cefepime and received 1 day of Zosyn prior to switching to cefepime. Ct chest showed dense consolidations to the bilateral lower lobes and to the left upper love with complete collapse of the left upper lobe felt most likely related to dependent/compressive atelectasis. CT findings not indicative of PNA, but given the patient's altered mental status , she is at risk for silent aspiration. Continue Zosyn 3.375 grams IV Q8H (day 6). Duration of treatment depends on the clinical picture. (12) Crain catheter in place Current Visit: Yes Status: Acute Crain catheter placed on admission. Urine color and clarity removed since the crain was switched out. (13) Pleural effusion Current Visit: No Status: Acute Likely secondary to third-spacing. CT chest shows bilateral pleural effusions, large on the left and moderate to large on the right. Likely contributing to the patient's hypoxic episodes when her O2 comes off. Consider IR to drain. Does not appear infected, but recommend sending fluid for cell count with differential, protein, LDH, glucose, and gram stain with culture. - Subjective Interval history: Patient seen and examined. No acute events noted overnight. Patient continues to have AMS and cannot give me any ROS information. Per family, the patient was agitated and pulling O2 and lines over the weekend, but is currently sleeping. She has been afebrile over the weekend. She has had little to no PO intake for several days. The patient's daughter requested I do not wake the patient to complete my exam. Infect Dis PN-Objective Data - Labs CBC & Chem 7: 07/21/17 05:15 07/21/17 05:15 Labs: Laboratory Results - last 24 hr 07/19/17 07/20/17 07/20/17 22:20 07:50 11:35 WBC RBC Hgb Hct MCV MCH MCHC RDW Plt Count MPV Immature Gran % Seg Neutrophils % Lymphocytes % Monocytes % Eosinophils % Basophils % Neutrophils # Lymphocytes # Monocytes # Eosinophils # Basophils # PT INR Sodium Potassium Chloride Carbon Dioxide BUN Creatinine Est GFR ( Amer) Est GFR (Non-Af Amer) BUN/Creatinine Ratio Glucose POC Glucose 189 H 158 H 133 H Calculated Osmolality Calcium 07/20/17 07/20/17 07/21/17 15:55 21:52 05:15 WBC RBC Hgb Hct MCV MCH MCHC RDW Plt Count MPV Immature Gran % Seg Neutrophils % Lymphocytes % Monocytes % Eosinophils % Basophils % Neutrophils # Lymphocytes # Monocytes # Eosinophils # Basophils # PT 26.2 H INR 2.4 Sodium Potassium Chloride Carbon Dioxide BUN Creatinine Est GFR ( Amer) Est GFR (Non-Af Amer) BUN/Creatinine Ratio Glucose POC Glucose 163 H 171 H Calculated Osmolality Calcium 07/21/17 07/21/17 05:15 05:15 WBC 10.1 RBC 2.94 L Hgb 8.3 L Hct 27.5 L MCV 93.5 MCH 28.2 MCHC 30.2 L RDW 16.7 H Plt Count 419 H MPV 9.4 Immature Gran % 0.3 Seg Neutrophils % 66.3 Lymphocytes % 25.8 Monocytes % 5.8 Eosinophils % 1.4 Basophils % 0.4 Neutrophils # 6.7 Lymphocytes # 2.6 Monocytes # 0.6 Eosinophils # 0.1 Basophils # 0.0 PT INR Sodium 141 Potassium 3.9 Chloride 105 Carbon Dioxide 29 BUN 13 Creatinine 0.84 Est GFR ( Amer) > 60 Est GFR (Non-Af Amer) > 60 BUN/Creatinine Ratio 15 Glucose 163 H POC Glucose Calculated Osmolality 296 Calcium 8.2 L Cultures: Cultures 07/14/17 17:59 Blood Culture - Final Peripheral Venipuncture No growth. 07/15/17 13:20 Urine Culture - Final Urine,Crain [place] glabrata 07/18/17 04:05 Blood Culture - Preliminary Peripheral Venipuncture No growth. 07/18/17 04:00 Blood Culture - Preliminary Peripheral Venipuncture No growth. 07/16/17 13:51 Blood Culture - Preliminary Peripheral Venipuncture No growth. 07/16/17 13:51 Blood Culture - Preliminary Peripheral Venipuncture No growth. 07/17/17 10:03 Blood Culture - Preliminary Peripheral Venipuncture No growth. 07/14/17 07:56 Blood Culture - Final Peripheral Venipuncture Methicillin Resistant S.aureus 07/15/17 11:27 Gram Stain - Final Left Hip 07/12/17 03:55 Blood Culture - Final Peripheral Venipuncture Methicillin Resistant S.aureus 07/10/17 14:13 Blood Culture - Final Peripheral Venipuncture Methicillin Resistant S.aureus 07/09/17 14:15 Blood Culture - Final Peripheral Venipuncture Methicillin Resistant S.aureus 07/09/17 14:15 Blood Culture - Final Peripheral Venipuncture Methicillin Resistant S.aureus 07/08/17 00:55 Blood Culture - Final Peripheral Venipuncture Methicillin Resistant S.aureus 07/08/17 00:55 Blood Culture - Final Peripheral Venipuncture Methicillin Resistant S.aureus 07/08/17 08:10 Legionella Antigen - Final Urine,Clean Catch 07/08/17 08:10 Streptococcus pneumoniae Antigen (M - Final Urine,Clean Catch Serology 07/17/17 07/15/17 07/14/17 Range/Units 09:15 13:20 07:56 Urine Color Yellow (Yellow) Urine Clarity Clear (Clear) Urine pH 6.0 (5.0-8.0) pH Units Ur Specific [place] 1.011 (1.010-1.025) Urine Protein Negative (Neg-Trace) mg/dL Urine Glucose (UA) Normal (Normal) mg/dL Urine Ketones Negative (Negative) mg/dL Urine Blood Trace H (Negative) Urine Nitrite Negative (Negative) Urine Bilirubin Negative (Negative) Urine Urobilinogen Normal (Normal) mg/dL Ur Leukocyte Esterase Trace H (Negative) Urine Microscopic RBC 3-5 H (0-3) per hpf Urine Microscopic WBC 3-5 H (0-3) per hpf Ur Squamous Epith Cells Moderate H (None-Few) per lpf Urine Bacteria None Seen (None-Few) per hpf Hyaline Casts None Seen (None-Few) per lpf Urine Yeast Few H (None Seen) per hpf Ur Culture Indicated? YES A (NO) A. baumannii (PCR) Not Detected (Not Detect) Chlamy pneumoniae PCR Not Detected (Not Detect) Adenovirus (PCR) Not Detected (Not Detect) B. pertussis DNA (PCR) Not Detected (Not Detect) B.parapertussis DNA PCR Not Detected (Not Detect) [place] albicans (PCR) Not Detected (Not Detect) C. glabrata (PCR) Not Detected (Not Detect) C. krusei (PCR) Not Detected (Not Detect) C. parapsilosis (PCR) Not Detected (Not Detect) C. tropicalis (PCR) Not Detected (Not Detect) Coronavirus OC43 (PCR) Not Detected (Not Detect) Coronavirus HKU1 (PCR) Not Detected (Not Detect) Coronavirus 229E (PCR) Not Detected (Not Detect) Coronavirus NL63 (PCR) Not Detected (Not Detect) Enterobacteriac sp PCR Not Detected (Not Detect) E. cloacae complex PCR Not Detected (Not Detect) Enterococcus sp PCR Not Detected (Not Detect) E. coli (PCR) Not Detected (Not Detect) H. influenzae (PCR) Not Detected (Not Detect) Human Metapneumovir PCR Not Detected (Not Detect) Influenza A (H1) PCR Not Detected (Not Detect) Influ A (H1N1/09) PCR Not Detected (Not Detect) Influenza A (H3) PCR Not Detected (Not Detect) Influenza A Untype (PCR) Not Detected (Not Detect) Influenza Type B (PCR) Not Detected (Not Detect) Klebsiella oxytoca PCR Not Detected (Not Detect) Klebsiella pneumoniae Not Detected (Not Detect) List. monocytogenes PCR Not Detected (Not Detect) M.pneumoniae DNA (PCR) Not Detected (Not Detect) N. meningitidis (PCR) Not Detected (Not Detect) Parainfluenza 1 (PCR) Not Detected (Not Detect) Parainfluenza 2 (PCR) Not Detected (Not Detect) Parainfluenza 3 (PCR) Not Detected (Not Detect) Parainfluenza 4 (PCR) Not Detected (Not Detect) Proteus species (PCR) Not Detected (Not Detect) RSV (PCR) Not Detected (Not Detect) Entero/Rhino (PCR) Not Detected (Not Detect) Serratia marcescens PCR Not Detected (Not Detect) Staphylococcus sp PCR DETECTED A (Not Detect) Staph aureus (PCR) DETECTED A (Not Detect) mecA-Methicil Res Gene DETECTED A (Not Detect) Streptococcus sp PCR Not Detected (Not Detect) Group A Strep DNA Not Detected (Not Detect) Group B Strep (PCR) Not Detected (Not Detect) Strep pneumoniae (PCR) Not Detected (Not Detect) P. aeruginosa (PCR) Not Detected (Not Detect) Alexa/B-Vanco Res Genes Not Detected (Not Detect) KPC (blaKPC) Detect PCR Not Detected (Not Detect) 07/09/17 07/09/17 07/08/17 Range/Units 14:15 14:15 08:10 Urine Color Dark Yellow (Yellow) Urine Clarity Cloudy A (Clear) Urine pH 6.0 (5.0-8.0) pH Units Ur Specific [place] > 1.030 H (1.010-1.025) Urine Protein 100 H (Neg-Trace) mg/dL Urine Glucose (UA) Normal (Normal) mg/dL Urine Ketones Negative (Negative) mg/dL Urine Blood Trace H (Negative) Urine Nitrite Negative (Negative) Urine Bilirubin Small H (Negative) Urine Urobilinogen Normal (Normal) mg/dL Ur Leukocyte Esterase Negative (Negative) Urine Microscopic RBC 5-15 H (0-3) per hpf Urine Microscopic WBC 30-50 H (0-3) per hpf Ur Squamous Epith Cells Moderate H (None-Few) per lpf Urine Bacteria Few (None-Few) per hpf Hyaline Casts Few (None-Few) per lpf Urine Yeast Moderate H (None Seen) per hpf Ur Culture Indicated? NO (NO) A. baumannii (PCR) Not Detected Not Detected (Not Detect) Chlamy pneumoniae PCR (Not Detect) Adenovirus (PCR) (Not Detect) B. pertussis DNA (PCR) (Not Detect) B.parapertussis DNA PCR (Not Detect) [place] albicans (PCR) Not Detected Not Detected (Not Detect) C. glabrata (PCR) Not Detected Not Detected (Not Detect) C. krusei (PCR) Not Detected Not Detected (Not Detect) C. parapsilosis (PCR) Not Detected Not Detected (Not Detect) C. tropicalis (PCR) Not Detected Not Detected (Not Detect) Coronavirus OC43 (PCR) (Not Detect) Coronavirus HKU1 (PCR) (Not Detect) Coronavirus 229E (PCR) (Not Detect) Coronavirus NL63 (PCR) (Not Detect) Enterobacteriac sp PCR Not Detected Not Detected (Not Detect) E. cloacae complex PCR Not Detected Not Detected (Not Detect) Enterococcus sp PCR Not Detected Not Detected (Not Detect) E. coli (PCR) Not Detected Not Detected (Not Detect) H. influenzae (PCR) Not Detected Not Detected (Not Detect) Human Metapneumovir PCR (Not Detect) Influenza A (H1) PCR (Not Detect) Influ A (H1N1/09) PCR (Not Detect) Influenza A (H3) PCR (Not Detect) Influenza A Untype (PCR) (Not Detect) Influenza Type B (PCR) (Not Detect) Klebsiella oxytoca PCR Not Detected Not Detected (Not Detect) Klebsiella pneumoniae Not Detected Not Detected (Not Detect) List. monocytogenes PCR Not Detected Not Detected (Not Detect) M.pneumoniae DNA (PCR) (Not Detect) N. meningitidis (PCR) Not Detected Not Detected (Not Detect) Parainfluenza 1 (PCR) (Not Detect) Parainfluenza 2 (PCR) (Not Detect) Parainfluenza 3 (PCR) (Not Detect) Parainfluenza 4 (PCR) (Not Detect) Proteus species (PCR) Not Detected Not Detected (Not Detect) RSV (PCR) (Not Detect) Entero/Rhino (PCR) (Not Detect) Serratia marcescens PCR Not Detected Not Detected (Not Detect) Staphylococcus sp PCR DETECTED A DETECTED A (Not Detect) Staph aureus (PCR) DETECTED A DETECTED A (Not Detect) mecA-Methicil Res Gene DETECTED A DETECTED A (Not Detect) Streptococcus sp PCR Not Detected Not Detected (Not Detect) Group A Strep DNA Not Detected Not Detected (Not Detect) Group B Strep (PCR) Not Detected Not Detected (Not Detect) Strep pneumoniae (PCR) Not Detected Not Detected (Not Detect) P. aeruginosa (PCR) Not Detected Not Detected (Not Detect) Alexa/B-Vanco Res Genes Not Detected N/A (Not Detect) KPC (blaKPC) Detect PCR Not Detected N/A (Not Detect) 07/08/17 Range/Units 00:55 Urine Color (Yellow) Urine Clarity (Clear) Urine pH (5.0-8.0) pH Units Ur Specific [place] (1.010-1.025) Urine Protein (Neg-Trace) mg/dL Urine Glucose (UA) (Normal) mg/dL Urine Ketones (Negative) mg/dL Urine Blood (Negative) Urine Nitrite (Negative) Urine Bilirubin (Negative) Urine Urobilinogen (Normal) mg/dL Ur Leukocyte Esterase (Negative) Urine Microscopic RBC (0-3) per hpf Urine Microscopic WBC (0-3) per hpf Ur Squamous Epith Cells (None-Few) per lpf Urine Bacteria (None-Few) per hpf Hyaline Casts (None-Few) per lpf Urine Yeast (None Seen) per hpf Ur Culture Indicated? (NO) A. baumannii (PCR) Not Detected (Not Detect) Chlamy pneumoniae PCR (Not Detect) Adenovirus (PCR) (Not Detect) B. pertussis DNA (PCR) (Not Detect) B.parapertussis DNA PCR (Not Detect) [place] albicans (PCR) Not Detected (Not Detect) C. glabrata (PCR) Not Detected (Not Detect) C. krusei (PCR) Not Detected (Not Detect) C. parapsilosis (PCR) Not Detected (Not Detect) C. tropicalis (PCR) Not Detected (Not Detect) Coronavirus OC43 (PCR) (Not Detect) Coronavirus HKU1 (PCR) (Not Detect) Coronavirus 229E (PCR) (Not Detect) Coronavirus NL63 (PCR) (Not Detect) Enterobacteriac sp PCR Not Detected (Not Detect) E. cloacae complex PCR Not Detected (Not Detect) Enterococcus sp PCR Not Detected (Not Detect) E. coli (PCR) Not Detected (Not Detect) H. influenzae (PCR) Not Detected (Not Detect) Human Metapneumovir PCR (Not Detect) Influenza A (H1) PCR (Not Detect) Influ A (H1N1/09) PCR (Not Detect) Influenza A (H3) PCR (Not Detect) Influenza A Untype (PCR) (Not Detect) Influenza Type B (PCR) (Not Detect) Klebsiella oxytoca PCR Not Detected (Not Detect) Klebsiella pneumoniae Not Detected (Not Detect) List. monocytogenes PCR Not Detected (Not Detect) M.pneumoniae DNA (PCR) (Not Detect) N. meningitidis (PCR) Not Detected (Not Detect) Parainfluenza 1 (PCR) (Not Detect) Parainfluenza 2 (PCR) (Not Detect) Parainfluenza 3 (PCR) (Not Detect) Parainfluenza 4 (PCR) (Not Detect) Proteus species (PCR) Not Detected (Not Detect) RSV (PCR) (Not Detect) Entero/Rhino (PCR) (Not Detect) Serratia marcescens PCR Not Detected (Not Detect) Staphylococcus sp PCR DETECTED A (Not Detect) Staph aureus (PCR) DETECTED A (Not Detect) mecA-Methicil Res Gene DETECTED A (Not Detect) Streptococcus sp PCR Not Detected (Not Detect) Group A Strep DNA Not Detected (Not Detect) Group B Strep (PCR) Not Detected (Not Detect) Strep pneumoniae (PCR) Not Detected (Not Detect) P. aeruginosa (PCR) Not Detected (Not Detect) Alexa/B-Vanco Res Genes Not Detected (Not Detect) KPC (blaKPC) Detect PCR Not Detected (Not Detect) - Impressions Impressions Brain MRI 07/16/17 15:16 IMPRESSION: Motion degraded study. No significant change in small, acute infarcts in the bilateral mcdowell radiata and centrum semiovale, which may reflect acute, lacunar infarcts. No new infarct is seen. Mild chronic microvascular ischemic disease. D/ / 07/16/2017 19:30:50 Juan Jose Ojeda MD / [facility] Interpreting Provider: Juan Jose Ojeda MD Exam - Constitutional Vitals: Temp Pulse Resp BP Pulse Ox 98.6 F 74 17 123/75 100 07/21/17 06:00 07/21/17 06:00 07/21/17 06:00 07/21/17 06:00 07/21/17 06:00 General appearance: no acute distress, obese, no febrile - Head Head exam: Present: atraumatic, normal inspection, normocephalic - ENT ENT exam: Present: mucous membranes dry - Neck Neck exam: Present: normal inspection - Respiratory Respiratory exam: Present: CTAB. Absent: rales, respiratory distress, rhonchi, wheezes - Cardiovascular Cardiovascular exam: Present: RRR, +S1, +S2 - GI/Abdominal GI/Abdominal exam: Present: normal bowel sounds, soft. Absent: distended, tenderness Additional comments: Crain catheter noted to be draining small amount of dark yellow urine. - Extremities Exam Extremities exam: Absent: joint swelling, pedal edema, tenderness Additional comments: Chronic deformity noted to the RLE. Full MSK exam not completed at the request of the patient's family. - Skin Skin exam: Present: dry, intact, normal color, warm Consult Discharge Plan - Plan Referrals: Barbra Juarez MD [Primary Care Provider] - Prince Wolf MD [Family Provider] - - Attending Attestation I examined this patient and my medical decision-making was reviewed with the Resident Physician. I agree with the documented findings, disposition and treatment plan as described except to the extent set forth below.
[2017-07-21] MEDS: Vancomycin 1,250 MG in D5% in Water 250 ML IVPB SCH (14:56)
[2017-07-21] MEDS ORDERED: Warfarin perPT PO PRN (18:00)
[2017-07-22] MEDS: *HR* HYDROmorphone (PF) 1 MG/ML SYRINGE IVP PRN ×5 (00:38→17:55)
[2017-07-22] MEDS: *HR* LORazepam 2 MG/ML VIAL IVP PRN (01:06)
[2017-07-22] MEDS: Bisacodyl 10 MG RECTAL SUPPOSITORY RC SCH ×2 (01:27→20:13)
[2017-07-22] MEDS: Silvasorb 44.4 ML TUBE TP SCH ×2 (02:07→08:42)
[2017-07-22] MEDS: Piperacillin/Tazobactam 3.375 GM/200 ML BAG IVPB SCH ×3 (03:24→22:19)
[2017-07-22 03:46] LABS: Basophils % 0.4 %; Eosinophils # 0.1 K/mcL (0.0-0.6); Eosinophils % 1.1 %; Hematocrit 26.1 % (35.3-44.9); Hemoglobin 7.7 g/dL (11.5-15.4); Immature Granulocytes % 0.3 % (0-4); Immature Platelets 1.3 % (1.1-6.1); Lymphocytes # 1.3 K/mcL (0.6-4.6); Lymphocytes % 18.2 %; Mean Corpuscular HGB Conc 29.5 g/dL (31.6-35.5); Mean Corpuscular Hemoglobin 27.7 pg (28.0-33.3); Mean Corpuscular Volume 93.9 fL (83.0-100.0); Mean Platelet Volume 9.2 fL (9.4-12.4); Monocytes # 0.4 K/mcL (0.0-1.3); Monocytes % 6.2 %; Neutrophils # 5.3 K/mcL (1.6-8.9); Platelet Count 351 K/mcL (140-400); Red Blood Count 2.78 M/mcL (3.82-4.97); Red Cell Distribution Width 16.5 % (11.5-14.5); Segmented Neutrophils % 73.8 %
[2017-07-22 03:54] LABS: INR 3.1; Prothrombin Time 34.1 Seconds (9.4-12.1)
[2017-07-22 04:12] LABS: BUN/Creatinine Ratio 16 (6-26); Blood Urea Nitrogen 12 mg/dL (8-23); Calcium 8.1 mg/dL (8.6-10.3); Carbon Dioxide 27 mEq/L (23-29); Chloride 107 mEq/L (98-107); Glucose 120 mg/dL (70-105); Osmolality,Calculated 295 (280-300); Potassium 3.4 mEq/L (3.5-5.1); Sodium 142 mEq/L (136-145); eGFR For African Americans > 60 (> 60); eGFR For Non-African Americans > 60 (> 60)
[2017-07-22] MEDS: Insulin LISPRO 300 UNITS/3 ML VIAL SQ SCH ×4 (08:43→22:13)
[2017-07-22] MEDS: Nitroglycerin 0.4 MG PATCH.TD24 TD SCH (08:47)
[2017-07-22] MEDS: *HR* Amiodarone 200 MG TABLET PO SCH (08:47)
[2017-07-22] MEDS: Nystatin SUSP 5 ML UD.LIQ PO SCH ×4 (08:47→20:14)
--- NOTE | 2017-07-22 09:51 | Infectious Disease Progress No ---
Date of Encounter: 07/22/17 Time of Encounter: 09:49 - Assessment and Plan (1) MRSA bacteremia Current Visit: Yes Status: Acute Causative organism: MRSA. Source not clear. The patient did have a femur MRI that showed moderate volume of fluid in the right greater trochanteric bursa, but no evidence of septic arthritis. Joint aspiration negative for septic arthritis as well. The patient had a CT of the chest, abdomen, and pelvis, as well as a nuclear medicine bone scan. No definitive source of the MRSA bacteremia, but the patient was noted to have significant bilateral pleural effusions. Additionally, review of the bone scan shows increased uptake in the right hip per the hospitalist team's review of the imaging. Radiology recommends WBC scan to further evaluate, but recommend holding off for now as it likely won't change the course of the patient's treatment. Blood cultures drawn 07/08/17 grew MRSA, 2/2 sets. Additional blood cultures drawn 07/09/17 were positive 2/2 sets as well. Repeat blood cultures drawn 07/10/17 x 1 set and 07/12/17 x 1 set are also positive. Additional blood cultures drawn 07/14/17 are positive 1/2 sets. Repeat blood cultures drawn 07/16/17 are negative x 2 sets. Additional blood cultures drawn 07/17/17 are NGTD x 2 sets. The patient has one major and one minor Modified Lindsay's Criteria. TTE negative for vegetations. No endocarditis stigmata noted on exam. GILBERTO negative. CODY of Vanc is 1. Etiology of persistent bacteremia not clear, but the last positive set of blood cultures were drawn <48 hours after the patient had therapeutic Vanc trough, which could also be contributing to this. Most recent set of blood cultures are negative so far. Continue Vancomycin IV. Pharmacy to dose. Goal trough ~15. Vanc trough 25. Duration of treatment depends on the clinical picture. Monitor renal function and for drug toxicity and dose-adjust antibiotics. Okay to consult VAT for PICC line placement when patient is able to undergo the procedure. (2) Altered mental status Current Visit: Yes Status: Acute Likely secondary to acute lacunar infarct and worsened by infectious process and medications. CT head negative, but MRI of the brain showed multiple small infarcts in the bilateral mcdowell radiata and centrum semiovale compatible with bilateral acute lacunar infarcts. Neurology consulted. CT head and brain MRI repeated 07/16/17, but do not show any new findings. Continue to monitor closely. Qualifiers: Altered mental status type: unspecified Qualified Code(s): R41.82 - Altered mental status, unspecified (3) Lacunar infarct, acute Current Visit: Yes Status: Acute (4) Lipoma Current Visit: Yes Status: Acute Location: Right thigh. CT scan of the right hip showed a partially visualized fat density mass in the psoterior aspect of the proximal right thigh with thin internal septations, most likely representing a lipoma or benign atypical lipomatous tumor. MRI of the right femur again showed findings consistent with lipoma vs. benign atypical lipomatous tumor with significant mass effect the hamstring musculature. Qualifiers: Lipoma location: lower extremity Laterality: right Qualified Code(s): D17.23 - Benign lipomatous neoplasm of skin and subcutaneous tissue of right leg (5) Supratherapeutic INR Current Visit: Yes Status: Resolved Improved. Further workup and evaluation per the primary team. (6) Chronic kidney disease (CKD) stage G3a/A3, moderately decreased glomerular filtration rate (GFR) between 45-59 mL/min/1.73 square meter and albuminuria creatinine ratio greater than 300 mg/g Current Visit: Yes Status: Acute Serum creatinine normal at this time. Continue to trend. Dose-adjust antibiotics as needed. Avoid nephrotoxins as able. The patient has had a marked decrease in her urine output over the last few days , but renal function remains normal. Not sure if I's and O's are being documented accurately. Will discuss with the primary team. (7) Chronic pain syndrome Current Visit: Yes Status: Acute Patient has had multiple MRIs and CT scans of the cervical, lumbar, thoracic spine and hips which revealed degenerative arthritis with no acute infectious process. (8) Arthritis Current Visit: Yes Status: Acute (9) Diabetes mellitus type 2 in obese Current Visit: No Status: Chronic Recommend aggressive glucose monitoring and control. Management per the primary team. 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 There was also a moderate volume of fluid in the right greater trochanteric bursa. Ortho consulted and appreciate their recommendations. Status post right hip bursa aspiration. Did not appear to be pus. Gram stain and culture negative. Status post nuclear medicine bone scan that is concerning for increased uptake in the right hip and pelvis per the hospitalist team's review of the films. Radiology recommends WBC scan. Recommend holding off on WBC scan for now as it likely will not change the course of the patient's treatment. Pain management per the primary team. (11) HCAP (healthcare-associated pneumonia) Current Visit: Yes Status: Acute CXR completed 07/08/17 showed findings suspicious for bibasilar atelectasis or PNA. Not sure if the patient truly has PNA or not. Currently on day 7 of Cefepime and received 1 day of Zosyn prior to switching to cefepime. Ct chest showed dense consolidations to the bilateral lower lobes and to the left upper love with complete collapse of the left upper lobe felt most likely related to dependent/compressive atelectasis. CT findings not indicative of PNA, but given the patient's altered mental status , she is at risk for silent aspiration. Continue Zosyn 3.375 grams IV Q8H (day 7). Duration of treatment depends on the clinical picture. (12) Crain catheter in place Current Visit: Yes Status: Acute Crain catheter placed on admission. Urine color and clarity improved since the crain was switched out, but sediment noted again in her urine. Urine output 200ml in 24 hours yesterday. Renal function normal. Consider flushing the crain to see if there is a clog if this is a true measurement of the patient's output. (13) Pleural effusion Current Visit: No Status: Acute Likely secondary to third-spacing. CT chest shows bilateral pleural effusions, large on the left and moderate to large on the right. Likely contributing to the patient's hypoxic episodes when her O2 comes off. Consider IR to drain. Does not appear infected, but recommend sending fluid for cell count with differential, protein, LDH, glucose, and gram stain with culture. - Subjective Interval history: Patient seen and examined. No acute events noted overnight. Patient continues to have AMS and cannot give me any ROS information. Per family, the patient was agitated and pulling O2 and lines overnight. She has been afebrile. The patient' s daughter reports the patient ate a yogurt and some cream of wheat this morning and she was able to get her to take some of her medications in applesauce. No other new issues/concerns at this time. Infect Dis PN-Objective Data - Labs CBC & Chem 7: 07/22/17 03:30 07/22/17 03:30 Labs: Laboratory Results - last 24 hr 07/15/17 07/21/17 07/21/17 13:20 07:04 11:34 WBC RBC Hgb Hct MCV MCH MCHC RDW Plt Count MPV Immature Gran % Seg Neutrophils % Lymphocytes % Monocytes % Eosinophils % Basophils % Neutrophils # Lymphocytes # Monocytes # Eosinophils # Basophils # Immature Plt Fraction PT INR Sodium Potassium Chloride Carbon Dioxide BUN Creatinine Est GFR ( Amer) Est GFR (Non-Af Amer) BUN/Creatinine Ratio Glucose POC Glucose 159 H 127 H Calculated Osmolality Calcium Urine Color Yellow Urine Clarity Clear Urine pH 6.0 Ur Specific Antelope 1.011 Urine Protein Negative Urine Glucose (UA) Normal Urine Ketones Negative Urine Blood Trace H Urine Nitrite Negative Urine Bilirubin Negative Urine Urobilinogen Normal Ur Leukocyte Esterase Trace H Urine Microscopic RBC 3-5 H Urine Microscopic WBC 3-5 H Ur Squamous Epith Cells Moderate H Urine Bacteria None Seen Hyaline Casts None Seen Urine Yeast Few H Ur Culture Indicated? YES A Vancomycin Trough 07/21/17 07/21/17 07/21/17 12:30 15:59 20:47 WBC RBC Hgb Hct MCV MCH MCHC RDW Plt Count MPV Immature Gran % Seg Neutrophils % Lymphocytes % Monocytes % Eosinophils % Basophils % Neutrophils # Lymphocytes # Monocytes # Eosinophils # Basophils # Immature Plt Fraction PT INR Sodium Potassium Chloride Carbon Dioxide BUN Creatinine Est GFR ( Amer) Est GFR (Non-Af Amer) BUN/Creatinine Ratio Glucose POC Glucose 174 H 116 H Calculated Osmolality Calcium Urine Color Urine Clarity Urine pH Ur Specific Antelope Urine Protein Urine Glucose (UA) Urine Ketones Urine Blood Urine Nitrite Urine Bilirubin Urine Urobilinogen Ur Leukocyte Esterase Urine Microscopic RBC Urine Microscopic WBC Ur Squamous Epith Cells Urine Bacteria Hyaline Casts Urine Yeast Ur Culture Indicated? Vancomycin Trough 25.3 H* 07/22/17 07/22/17 07/22/17 03:30 03:30 03:30 WBC 7.1 RBC 2.78 L Hgb 7.7 L Hct 26.1 L MCV 93.9 MCH 27.7 L MCHC 29.5 L RDW 16.5 H Plt Count 351 MPV 9.2 L Immature Gran % 0.3 Seg Neutrophils % 73.8 Lymphocytes % 18.2 Monocytes % 6.2 Eosinophils % 1.1 Basophils % 0.4 Neutrophils # 5.3 Lymphocytes # 1.3 Monocytes # 0.4 Eosinophils # 0.1 Basophils # 0.0 Immature Plt Fraction 1.3 PT 34.1 H INR 3.1 Sodium 142 Potassium 3.4 L Chloride 107 Carbon Dioxide 27 BUN 12 Creatinine 0.76 Est GFR ( Amer) > 60 Est GFR (Non-Af Amer) > 60 BUN/Creatinine Ratio 16 Glucose 120 H POC Glucose Calculated Osmolality 295 Calcium 8.1 L Urine Color Urine Clarity Urine pH Ur Specific Antelope Urine Protein Urine Glucose (UA) Urine Ketones Urine Blood Urine Nitrite Urine Bilirubin Urine Urobilinogen Ur Leukocyte Esterase Urine Microscopic RBC Urine Microscopic WBC Ur Squamous Epith Cells Urine Bacteria Hyaline Casts Urine Yeast Ur Culture Indicated? Vancomycin Trough Cultures: Cultures 07/15/17 13:20 Urine Culture - Final Urine,Crain [place] glabrata 07/16/17 13:51 Blood Culture - Final Peripheral Venipuncture No growth. 07/16/17 13:51 Blood Culture - Final Peripheral Venipuncture No growth. 07/14/17 17:59 Blood Culture - Final Peripheral Venipuncture No growth. 07/18/17 04:05 Blood Culture - Preliminary Peripheral Venipuncture No growth. 07/18/17 04:00 Blood Culture - Preliminary Peripheral Venipuncture No growth. 07/17/17 10:03 Blood Culture - Preliminary Peripheral Venipuncture No growth. 07/14/17 07:56 Blood Culture - Final Peripheral Venipuncture Methicillin Resistant S.aureus 07/15/17 11:27 Gram Stain - Final Left Hip 07/12/17 03:55 Blood Culture - Final Peripheral Venipuncture Methicillin Resistant S.aureus 07/10/17 14:13 Blood Culture - Final Peripheral Venipuncture Methicillin Resistant S.aureus 07/09/17 14:15 Blood Culture - Final Peripheral Venipuncture Methicillin Resistant S.aureus 07/09/17 14:15 Blood Culture - Final Peripheral Venipuncture Methicillin Resistant S.aureus 07/08/17 00:55 Blood Culture - Final Peripheral Venipuncture Methicillin Resistant S.aureus 07/08/17 00:55 Blood Culture - Final Peripheral Venipuncture Methicillin Resistant S.aureus 07/08/17 08:10 Legionella Antigen - Final Urine,Clean Catch 07/08/17 08:10 Streptococcus pneumoniae Antigen (M - Final Urine,Clean Catch Serology 01/07/15/17 07/14/17 Range/Units 09:15 13:20 07:56 Urine Color Yellow (Yellow) Urine Clarity Clear (Clear) Urine pH 6.0 (5.0-8.0) pH Units Ur Specific Antelope 1.011 (1.010-1.025) Urine Protein Negative (Neg-Trace) mg/dL Urine Glucose (UA) Normal (Normal) mg/dL Urine Ketones Negative (Negative) mg/dL Urine Blood Trace H (Negative) Urine Nitrite Negative (Negative) Urine Bilirubin Negative (Negative) Urine Urobilinogen Normal (Normal) mg/dL Ur Leukocyte Esterase Trace H (Negative) Urine Microscopic RBC 3-5 H (0-3) per hpf Urine Microscopic WBC 3-5 H (0-3) per hpf Ur Squamous Epith Cells Moderate H (None-Few) per lpf Urine Bacteria None Seen (None-Few) per hpf Hyaline Casts None Seen (None-Few) per lpf Urine Yeast Few H (None Seen) per hpf Ur Culture Indicated? YES A (NO) A. baumannii (PCR) Not Detected (Not Detect) Chlamy pneumoniae PCR Not Detected (Not Detect) Adenovirus (PCR) Not Detected (Not Detect) B. pertussis DNA (PCR) Not Detected (Not Detect) B.parapertussis DNA PCR Not Detected (Not Detect) Adelina albicans (PCR) Not Detected (Not Detect) C. glabrata (PCR) Not Detected (Not Detect) C. krusei (PCR) Not Detected (Not Detect) C. parapsilosis (PCR) Not Detected (Not Detect) C. tropicalis (PCR) Not Detected (Not Detect) Coronavirus OC43 (PCR) Not Detected (Not Detect) Coronavirus HKU1 (PCR) Not Detected (Not Detect) Coronavirus 229E (PCR) Not Detected (Not Detect) Coronavirus NL63 (PCR) Not Detected (Not Detect) Enterobacteriac sp PCR Not Detected (Not Detect) E. cloacae complex PCR Not Detected (Not Detect) Enterococcus sp PCR Not Detected (Not Detect) E. coli (PCR) Not Detected (Not Detect) H. influenzae (PCR) Not Detected (Not Detect) Human Metapneumovir PCR Not Detected (Not Detect) Influenza A (H1) PCR Not Detected (Not Detect) Influ A (H1N1/09) PCR Not Detected (Not Detect) Influenza A (H3) PCR Not Detected (Not Detect) Influenza A Untype (PCR) Not Detected (Not Detect) Influenza Type B (PCR) Not Detected (Not Detect) Klebsiella oxytoca PCR Not Detected (Not Detect) Klebsiella pneumoniae Not Detected (Not Detect) List. monocytogenes PCR Not Detected (Not Detect) M.pneumoniae DNA (PCR) Not Detected (Not Detect) N. meningitidis (PCR) Not Detected (Not Detect) Parainfluenza 1 (PCR) Not Detected (Not Detect) Parainfluenza 2 (PCR) Not Detected (Not Detect) Parainfluenza 3 (PCR) Not Detected (Not Detect) Parainfluenza 4 (PCR) Not Detected (Not Detect) Proteus species (PCR) Not Detected (Not Detect) RSV (PCR) Not Detected (Not Detect) Entero/Rhino (PCR) Not Detected (Not Detect) Serratia marcescens PCR Not Detected (Not Detect) Staphylococcus sp PCR DETECTED A (Not Detect) Staph aureus (PCR) DETECTED A (Not Detect) mecA-Methicil Res Gene DETECTED A (Not Detect) Streptococcus sp PCR Not Detected (Not Detect) Group A Strep DNA Not Detected (Not Detect) Group B Strep (PCR) Not Detected (Not Detect) Strep pneumoniae (PCR) Not Detected (Not Detect) P. aeruginosa (PCR) Not Detected (Not Detect) Alexa/B-Vanco Res Genes Not Detected (Not Detect) KPC (blaKPC) Detect PCR Not Detected (Not Detect) 07/09/17 07/09/17 07/08/17 Range/Units 14:15 14:15 08:10 Urine Color Dark Yellow (Yellow) Urine Clarity Cloudy A (Clear) Urine pH 6.0 (5.0-8.0) pH Units Ur Specific Antelope > 1.030 H (1.010-1.025) Urine Protein 100 H (Neg-Trace) mg/dL Urine Glucose (UA) Normal (Normal) mg/dL Urine Ketones Negative (Negative) mg/dL Urine Blood Trace H (Negative) Urine Nitrite Negative (Negative) Urine Bilirubin Small H (Negative) Urine Urobilinogen Normal (Normal) mg/dL Ur Leukocyte Esterase Negative (Negative) Urine Microscopic RBC 5-15 H (0-3) per hpf Urine Microscopic WBC 30-50 H (0-3) per hpf Ur Squamous Epith Cells Moderate H (None-Few) per lpf Urine Bacteria Few (None-Few) per hpf Hyaline Casts Few (None-Few) per lpf Urine Yeast Moderate H (None Seen) per hpf Ur Culture Indicated? NO (NO) A. baumannii (PCR) Not Detected Not Detected (Not Detect) Chlamy pneumoniae PCR (Not Detect) Adenovirus (PCR) (Not Detect) B. pertussis DNA (PCR) (Not Detect) B.parapertussis DNA PCR (Not Detect) Adelina albicans (PCR) Not Detected Not Detected (Not Detect) C. glabrata (PCR) Not Detected Not Detected (Not Detect) C. krusei (PCR) Not Detected Not Detected (Not Detect) C. parapsilosis (PCR) Not Detected Not Detected (Not Detect) C. tropicalis (PCR) Not Detected Not Detected (Not Detect) Coronavirus OC43 (PCR) (Not Detect) Coronavirus HKU1 (PCR) (Not Detect) Coronavirus 229E (PCR) (Not Detect) Coronavirus NL63 (PCR) (Not Detect) Enterobacteriac sp PCR Not Detected Not Detected (Not Detect) E. cloacae complex PCR Not Detected Not Detected (Not Detect) Enterococcus sp PCR Not Detected Not Detected (Not Detect) E. coli (PCR) Not Detected Not Detected (Not Detect) H. influenzae (PCR) Not Detected Not Detected (Not Detect) Human Metapneumovir PCR (Not Detect) Influenza A (H1) PCR (Not Detect) Influ A (H1N1/09) PCR (Not Detect) Influenza A (H3) PCR (Not Detect) Influenza A Untype (PCR) (Not Detect) Influenza Type B (PCR) (Not Detect) Klebsiella oxytoca PCR Not Detected Not Detected (Not Detect) Klebsiella pneumoniae Not Detected Not Detected (Not Detect) List. monocytogenes PCR Not Detected Not Detected (Not Detect) M.pneumoniae DNA (PCR) (Not Detect) N. meningitidis (PCR) Not Detected Not Detected (Not Detect) Parainfluenza 1 (PCR) (Not Detect) Parainfluenza 2 (PCR) (Not Detect) Parainfluenza 3 (PCR) (Not Detect) Parainfluenza 4 (PCR) (Not Detect) Proteus species (PCR) Not Detected Not Detected (Not Detect) RSV (PCR) (Not Detect) Entero/Rhino (PCR) (Not Detect) Serratia marcescens PCR Not Detected Not Detected (Not Detect) Staphylococcus sp PCR DETECTED A DETECTED A (Not Detect) Staph aureus (PCR) DETECTED A DETECTED A (Not Detect) mecA-Methicil Res Gene DETECTED A DETECTED A (Not Detect) Streptococcus sp PCR Not Detected Not Detected (Not Detect) Group A Strep DNA Not Detected Not Detected (Not Detect) Group B Strep (PCR) Not Detected Not Detected (Not Detect) Strep pneumoniae (PCR) Not Detected Not Detected (Not Detect) P. aeruginosa (PCR) Not Detected Not Detected (Not Detect) Alexa/B-Vanco Res Genes Not Detected N/A (Not Detect) KPC (blaKPC) Detect PCR Not Detected N/A (Not Detect) 07/08/17 Range/Units 00:55 Urine Color (Yellow) Urine Clarity (Clear) Urine pH (5.0-8.0) pH Units Ur Specific Antelope (1.010-1.025) Urine Protein (Neg-Trace) mg/dL Urine Glucose (UA) (Normal) mg/dL Urine Ketones (Negative) mg/dL Urine Blood (Negative) Urine Nitrite (Negative) Urine Bilirubin (Negative) Urine Urobilinogen (Normal) mg/dL Ur Leukocyte Esterase (Negative) Urine Microscopic RBC (0-3) per hpf Urine Microscopic WBC (0-3) per hpf Ur Squamous Epith Cells (None-Few) per lpf Urine Bacteria (None-Few) per hpf Hyaline Casts (None-Few) per lpf Urine Yeast (None Seen) per hpf Ur Culture Indicated? (NO) A. baumannii (PCR) Not Detected (Not Detect) Chlamy pneumoniae PCR (Not Detect) Adenovirus (PCR) (Not Detect) B. pertussis DNA (PCR) (Not Detect) B.parapertussis DNA PCR (Not Detect) Adelina albicans (PCR) Not Detected (Not Detect) C. glabrata (PCR) Not Detected (Not Detect) C. krusei (PCR) Not Detected (Not Detect) C. parapsilosis (PCR) Not Detected (Not Detect) C. tropicalis (PCR) Not Detected (Not Detect) Coronavirus OC43 (PCR) (Not Detect) Coronavirus HKU1 (PCR) (Not Detect) Coronavirus 229E (PCR) (Not Detect) Coronavirus NL63 (PCR) (Not Detect) Enterobacteriac sp PCR Not Detected (Not Detect) E. cloacae complex PCR Not Detected (Not Detect) Enterococcus sp PCR Not Detected (Not Detect) E. coli (PCR) Not Detected (Not Detect) H. influenzae (PCR) Not Detected (Not Detect) Human Metapneumovir PCR (Not Detect) Influenza A (H1) PCR (Not Detect) Influ A (H1N1/09) PCR (Not Detect) Influenza A (H3) PCR (Not Detect) Influenza A Untype (PCR) (Not Detect) Influenza Type B (PCR) (Not Detect) Klebsiella oxytoca PCR Not Detected (Not Detect) Klebsiella pneumoniae Not Detected (Not Detect) List. monocytogenes PCR Not Detected (Not Detect) M.pneumoniae DNA (PCR) (Not Detect) N. meningitidis (PCR) Not Detected (Not Detect) Parainfluenza 1 (PCR) (Not Detect) Parainfluenza 2 (PCR) (Not Detect) Parainfluenza 3 (PCR) (Not Detect) Parainfluenza 4 (PCR) (Not Detect) Proteus species (PCR) Not Detected (Not Detect) RSV (PCR) (Not Detect) Entero/Rhino (PCR) (Not Detect) Serratia marcescens PCR Not Detected (Not Detect) Staphylococcus sp PCR DETECTED A (Not Detect) Staph aureus (PCR) DETECTED A (Not Detect) mecA-Methicil Res Gene DETECTED A (Not Detect) Streptococcus sp PCR Not Detected (Not Detect) Group A Strep DNA Not Detected (Not Detect) Group B Strep (PCR) Not Detected (Not Detect) Strep pneumoniae (PCR) Not Detected (Not Detect) P. aeruginosa (PCR) Not Detected (Not Detect) Alexa/B-Vanco Res Genes Not Detected (Not Detect) KPC (blaKPC) Detect PCR Not Detected (Not Detect) - Impressions Impressions Gallbladder Ultrasound 07/18/17 09:00 IMPRESSION: Sludge and several small stones seen within the gallbladder with mild gallbladder wall thickening. The patient did not have a positive sonographic Coyle's sign. There is no definitive evidence for acute cholecystitis. If further evaluation is needed, recommend HIDA scan. D/ / 07/18/2017 09:03:33 Wai Andrade MD / ronak Interpreting Provider: Wai Andrade MD Exam - Constitutional Vitals: Temp Pulse Resp BP Pulse Ox 98.6 F 81 18 133/78 94 07/22/17 08:27 07/22/17 08:27 07/22/17 08:27 07/22/17 08:27 07/22/17 08:27 General appearance: no acute distress, obese, no cooperative - Head Head exam: Present: atraumatic, normal inspection, normocephalic - Eye Eye exam: Present: normal appearance, PERRL Pupils: Present: normal accommodation Additional comments: Resistant to exam. - ENT ENT exam: Present: mucous membranes dry - Neck Neck exam: Present: normal inspection - Respiratory Respiratory exam: Present: CTAB. Absent: rales, respiratory distress, rhonchi, wheezes - Cardiovascular Cardiovascular exam: Present: RRR, +S1, +S2 - GI/Abdominal GI/Abdominal exam: Present: normal bowel sounds, soft. Absent: distended, tenderness Additional comments: Crain catheter draining small amount of dark yellow urine. - Extremities Exam Extremities exam: Present: tenderness (BLE, R> L). Absent: joint swelling, pedal edema - Neurological Exam Neurological exam: Present: altered. Absent: no focal deficits (moves BUE and LLE, no spontaneous movement of the RLE. Patient does not follow commands.), facial droop - Psychiatric Psychiatric exam: Present: agitated (Patient crying and yelling out, resistant to exam.) - Skin Skin exam: Present: dry, intact, normal color, warm Consult Discharge Plan - Plan Referrals: Barbra Juarez MD [Primary Care Provider] - Prince Wolf MD [Family Provider] - - Attending Attestation I examined this patient and my medical decision-making was reviewed with the Resident Physician. I agree with the documented findings, disposition and treatment plan as described except to the extent set forth below.
--- NOTE | 2017-07-22 10:58 | Palliative Progress Note ---
<Martha Haider-Adelina - Last Filed: 07/22/17 10:52> Date of Encounter: 07/22/17 Time of Encounter: 08:55 - Assessment and plan (1) Goals of care, counseling/discussion Current Visit: Yes Status: Acute Assessment and plan: Patient's current code status is DNR-CCA and DNI. Dr. Thompson agrees to have low dose Ativan scheduled for the patient. Dr. Rodriguez has ordered 0.5 mg of Ativan QID. Palliative team will continue to follow. - Time Spent With Patient Total time spent is greater than 50% in coordination of care (as documented) at patient's floor/unit and/or counseling patient: 25 - 35 minutes - Subjective Interval history: Patient seen and examined at bedside this morning. Vitals are within normal limits. The daughter Inge was at the bedside at this time. The daughter was attempting to feed her mother food with crushed medications. The patient was not tolerating it well and continue to spit up the food. The patient continues to moan and communicate words I cannot understand on my exam. The patient continues to pull on her nasal canula. Per nurse, the patient was not taking any oral medications overnight and it appeared that the patient was moaning more in pain, especially while the nurse was changing the patient's dressing. The patient received Dilaudid for pain and Ativan for agitation overnight. The daughter requested if the patient can have Ativan scheduled more frequently. I told the daughter I will discuss that with Dr. Rodriguez and Dr. Thompson. The daughter has no other concerns at this time. - Constitutional Vitals: Abnormal lab results RBC 2.78 M/mcL (3.82-4.97) L 07/22/17 03:30 Hgb 7.7 g/dL (11.5-15.4) L 07/22/17 03:30 Hct 26.1 % (35.3-44.9) L 07/22/17 03:30 MCH 27.7 pg (28.0-33.3) L 07/22/17 03:30 MCHC 29.5 g/dL (31.6-35.5) L 07/22/17 03:30 RDW 16.5 % (11.5-14.5) H 07/22/17 03:30 MPV 9.2 fL (9.4-12.4) L 07/22/17 03:30 Nucleated RBCs/100 WBC 0.3 /100 WBC (0) H 07/20/17 06:15 PT 34.1 Seconds (9.4-12.1) H 07/22/17 03:30 APTT 56.0 Seconds (26.0-36.0) H 07/06/17 05:59 ABG pCO2 48 mmHg (35-45) H 07/15/17 19:10 ABG pO2 73 mmHg (85-104) L 07/15/17 19:10 ABG HCO3 33 mEq/L (21-27) H 07/15/17 19:10 ABG Total CO2 34 mEq/L (20-26) H 07/15/17 19:10 ABG Base Excess 7 mEq/L (-2 to 3) H 07/15/17 19:10 Potassium 3.4 mEq/L (3.5-5.1) L 07/22/17 03:30 Glucose 120 mg/dL (70-105) H 07/22/17 03:30 POC Glucose 116 (58-89) H 07/21/17 20:47 Hemoglobin A1c 7.8 % (-5.6) H 07/08/17 00:55 Calcium 8.1 mg/dL (8.6-10.3) L 07/22/17 03:30 AST 8 Units/L (13-39) L 07/16/17 04:31 Alkaline Phosphatase 32 Units/L (34-104) L 07/16/17 04:31 Serum Total Protein 5.7 g/dL (6.4-8.9) L 07/16/17 04:31 Albumin 2.0 g/dL (3.5-5.7) L 07/16/17 04:31 Globulin 3.7 g/dL (2.4-3.5) H 07/16/17 04:31 Albumin/Globulin Ratio 0.5 (1.1-2.2) L 07/16/17 04:31 Cholesterol 210 mg/dL (< 200) H 07/06/17 05:59 LDL Cholesterol, Calc 145 mg/dL (0-99) H 07/06/17 05:59 HDL Cholesterol 38 mg/dL (40-59) L 07/06/17 05:59 Cholesterol/HDL Ratio 5.5 (0-4.9) H 07/06/17 05:59 Urine Blood Trace (Negative) H 07/15/17 13:20 Ur Leukocyte Esterase Trace (Negative) H 07/15/17 13:20 Urine Microscopic RBC 3-5 per hpf (0-3) H 07/15/17 13:20 Urine Microscopic WBC 3-5 per hpf (0-3) H 07/15/17 13:20 Ur Squamous Epith Cells Moderate per lpf (None-Few) H 07/15/17 13:20 Urine Yeast Few per hpf (None Seen) H 07/15/17 13:20 Ur Culture Indicated? YES (NO) A 07/15/17 13:20 Vancomycin Trough 25.3 mcg/mL (10-20) H* 07/21/17 12:30 Staphylococcus sp PCR DETECTED (Not Detect) A 07/14/17 07:56 Staph aureus (PCR) DETECTED (Not Detect) A 07/14/17 07:56 mecA-Methicil Res Gene DETECTED (Not Detect) A 07/14/17 07:56 General appearance: Absent: febrile, cooperative, no acute distress, severe distress - Head Head exam: Present: atraumatic - Eye Eye exam: Present: normal appearance, PERRL. Absent: periorbital swelling - Neck Neck exam: Present: normal inspection. Absent: lymphadenopathy, tenderness - Respiratory Respiratory exam: Present: rales (Rales heard diffusely on exam). Absent: accessory muscle use, respiratory distress, rhonchi, wheezes, tachypnea - Cardiovascular Cardiovascular exam: Present: RRR, +S1, +S2. Absent: bradycardia, gallop, rubs , systolic murmur, tachycardia - GI/Abdominal GI/Abdominal exam: Present: soft. Absent: distended, guarding, tenderness - Extremities Exam Extremities exam: Present: pedal edema. Absent: calf tenderness, tenderness Additional comments: Bilateral lower extremities swelling with +2 pitting edema. Distal pulses intact and +2/4. - Neurological Exam Neurological exam: Present: altered. Absent: oriented X3, facial droop, speech deficit Palliative Quality Palliative Quality: Screen for Code Status: Yes, Screen for Goals of Care: Yes, Screen for Pain: Yes, If Pain Regimen Started, Initiate Bowel Regimen: Yes, Screen for Nausea/Vomitting: Yes Code Status: 07/16/17 14:43 DNR [Resuscitation Status: Active] [RES] Routine Comment: Resuscitation Status: [id number] - Labs CBC & Chem 7: 07/22/17 03:30 07/22/17 03:30 Labs: Laboratory Results - last 24 hr 07/15/17 07/21/17 07/21/17 13:20 07:04 11:34 WBC RBC Hgb Hct MCV MCH MCHC RDW Plt Count MPV Immature Gran % Seg Neutrophils % Lymphocytes % Monocytes % Eosinophils % Basophils % Neutrophils # Lymphocytes # Monocytes # Eosinophils # Basophils # Immature Plt Fraction PT INR Sodium Potassium Chloride Carbon Dioxide BUN Creatinine Est GFR ( Amer) Est GFR (Non-Af Amer) BUN/Creatinine Ratio Glucose POC Glucose 159 H 127 H Calculated Osmolality Calcium Urine Color Yellow Urine Clarity Clear Urine pH 6.0 Ur Specific [place] 1.011 Urine Protein Negative Urine Glucose (UA) Normal Urine Ketones Negative Urine Blood Trace H Urine Nitrite Negative Urine Bilirubin Negative Urine Urobilinogen Normal Ur Leukocyte Esterase Trace H Urine Microscopic RBC 3-5 H Urine Microscopic WBC 3-5 H Ur Squamous Epith Cells Moderate H Urine Bacteria None Seen Hyaline Casts None Seen Urine Yeast Few H Ur Culture Indicated? YES A Vancomycin Trough 07/21/17 07/21/17 07/21/17 12:30 15:59 20:47 WBC RBC Hgb Hct MCV MCH MCHC RDW Plt Count MPV Immature Gran % Seg Neutrophils % Lymphocytes % Monocytes % Eosinophils % Basophils % Neutrophils # Lymphocytes # Monocytes # Eosinophils # Basophils # Immature Plt Fraction PT INR Sodium Potassium Chloride Carbon Dioxide BUN Creatinine Est GFR ( Amer) Est GFR (Non-Af Amer) BUN/Creatinine Ratio Glucose POC Glucose 174 H 116 H Calculated Osmolality Calcium Urine Color Urine Clarity Urine pH Ur Specific [place] Urine Protein Urine Glucose (UA) Urine Ketones Urine Blood Urine Nitrite Urine Bilirubin Urine Urobilinogen Ur Leukocyte Esterase Urine Microscopic RBC Urine Microscopic WBC Ur Squamous Epith Cells Urine Bacteria Hyaline Casts Urine Yeast Ur Culture Indicated? Vancomycin Trough 25.3 H* 07/22/17 07/22/17 07/22/17 03:30 03:30 03:30 WBC 7.1 RBC 2.78 L Hgb 7.7 L Hct 26.1 L MCV 93.9 MCH 27.7 L MCHC 29.5 L RDW 16.5 H Plt Count 351 MPV 9.2 L Immature Gran % 0.3 Seg Neutrophils % 73.8 Lymphocytes % 18.2 Monocytes % 6.2 Eosinophils % 1.1 Basophils % 0.4 Neutrophils # 5.3 Lymphocytes # 1.3 Monocytes # 0.4 Eosinophils # 0.1 Basophils # 0.0 Immature Plt Fraction 1.3 PT 34.1 H INR 3.1 Sodium 142 Potassium 3.4 L Chloride 107 Carbon Dioxide 27 BUN 12 Creatinine 0.76 Est GFR ( Amer) > 60 Est GFR (Non-Af Amer) > 60 BUN/Creatinine Ratio 16 Glucose 120 H POC Glucose Calculated Osmolality 295 Calcium 8.1 L Urine Color Urine Clarity Urine pH Ur Specific [place] Urine Protein Urine Glucose (UA) Urine Ketones Urine Blood Urine Nitrite Urine Bilirubin Urine Urobilinogen Ur Leukocyte Esterase Urine Microscopic RBC Urine Microscopic WBC Ur Squamous Epith Cells Urine Bacteria Hyaline Casts Urine Yeast Ur Culture Indicated? Vancomycin Trough - Impressions Impressions Gallbladder Ultrasound 07/18/17 09:00 IMPRESSION: Sludge and several small stones seen within the gallbladder with mild gallbladder wall thickening. The patient did not have a positive sonographic Coyle's sign. There is no definitive evidence for acute cholecystitis. If further evaluation is needed, recommend HIDA scan. D/ / 07/18/2017 09:03:33 Wai Andrade MD / ronak Interpreting Provider: Wai Andrade MD - ABG Interpretation ABG results: ABG ABG pH 7.44 pH Units (7.32-7.45) 07/15/17 19:10 ABG pCO2 48 mmHg (35-45) H 07/15/17 19:10 ABG pO2 73 mmHg (85-104) L 07/15/17 19:10 ABG O2 Saturation 95 % (95-98) 07/15/17 19:10 PT/INR, D-dimer PT 34.1 Seconds (9.4-12.1) H 07/22/17 03:30 Consult Discharge Plan - Plan Referrals: Barbra Juarez MD [Primary Care Provider] - Prince Wolf MD [Family Provider] - <Ravindra Rodriguez L - Last Filed: 07/22/17 12:31> Date of Encounter: 07/22/17 - Assessment and plan (1) Arthritis Current Visit: Yes Status: Acute (2) Failure to thrive in adult Current Visit: Yes Status: Acute (3) Goals of care, counseling/discussion Current Visit: Yes Status: Acute (4) Altered mental status Current Visit: Yes Status: Acute Qualifiers: Altered mental status type: unspecified Qualified Code(s): R41.82 - Altered mental status, unspecified - Time Spent With Patient Total time spent is greater than 50% in coordination of care (as documented) at patient's floor/unit and/or counseling patient: - Constitutional Vitals: Abnormal lab results RBC 2.78 M/mcL (3.82-4.97) L 07/22/17 03:30 Hgb 7.7 g/dL (11.5-15.4) L 07/22/17 03:30 Hct 26.1 % (35.3-44.9) L 07/22/17 03:30 MCH 27.7 pg (28.0-33.3) L 07/22/17 03:30 MCHC 29.5 g/dL (31.6-35.5) L 07/22/17 03:30 RDW 16.5 % (11.5-14.5) H 07/22/17 03:30 MPV 9.2 fL (9.4-12.4) L 07/22/17 03:30 Nucleated RBCs/100 WBC 0.3 /100 WBC (0) H 07/20/17 06:15 PT 34.1 Seconds (9.4-12.1) H 07/22/17 03:30 APTT 56.0 Seconds (26.0-36.0) H 07/06/17 05:59 ABG pCO2 48 mmHg (35-45) H 07/15/17 19:10 ABG pO2 73 mmHg (85-104) L 07/15/17 19:10 ABG HCO3 33 mEq/L (21-27) H 07/15/17 19:10 ABG Total CO2 34 mEq/L (20-26) H 07/15/17 19:10 ABG Base Excess 7 mEq/L (-2 to 3) H 07/15/17 19:10 Potassium 3.4 mEq/L (3.5-5.1) L 07/22/17 03:30 Glucose 120 mg/dL (70-105) H 07/22/17 03:30 POC Glucose 116 (58-89) H 07/21/17 20:47 Hemoglobin A1c 7.8 % (-5.6) H 07/08/17 00:55 Calcium 8.1 mg/dL (8.6-10.3) L 07/22/17 03:30 AST 8 Units/L (13-39) L 07/16/17 04:31 Alkaline Phosphatase 32 Units/L (34-104) L 07/16/17 04:31 Serum Total Protein 5.7 g/dL (6.4-8.9) L 07/16/17 04:31 Albumin 2.0 g/dL (3.5-5.7) L 07/16/17 04:31 Globulin 3.7 g/dL (2.4-3.5) H 07/16/17 04:31 Albumin/Globulin Ratio 0.5 (1.1-2.2) L 07/16/17 04:31 Cholesterol 210 mg/dL (< 200) H 07/06/17 05:59 LDL Cholesterol, Calc 145 mg/dL (0-99) H 07/06/17 05:59 HDL Cholesterol 38 mg/dL (40-59) L 07/06/17 05:59 Cholesterol/HDL Ratio 5.5 (0-4.9) H 07/06/17 05:59 Urine Blood Trace (Negative) H 07/15/17 13:20 Ur Leukocyte Esterase Trace (Negative) H 07/15/17 13:20 Urine Microscopic RBC 3-5 per hpf (0-3) H 07/15/17 13:20 Urine Microscopic WBC 3-5 per hpf (0-3) H 07/15/17 13:20 Ur Squamous Epith Cells Moderate per lpf (None-Few) H 07/15/17 13:20 Urine Yeast Few per hpf (None Seen) H 07/15/17 13:20 Ur Culture Indicated? YES (NO) A 07/15/17 13:20 Vancomycin Trough 25.3 mcg/mL (10-20) H* 07/21/17 12:30 Staphylococcus sp PCR DETECTED (Not Detect) A 07/14/17 07:56 Staph aureus (PCR) DETECTED (Not Detect) A 07/14/17 07:56 mecA-Methicil Res Gene DETECTED (Not Detect) A 07/14/17 07:56 - Attending Attestation I examined this patient and my medical decision-making was reviewed with the Resident Physician. I agree with the documented findings, disposition and treatment plan as described except to the extent set forth below. Palliative Quality Code Status: 07/16/17 14:43 DNR [Resuscitation Status: Active] [RES] Routine Comment: Resuscitation Status: [id number] - Labs CBC & Chem 7: 07/22/17 03:30 07/22/17 03:30 Labs: Laboratory Results - last 24 hr 07/15/17 07/21/17 07/21/17 13:20 07:04 11:34 WBC RBC Hgb Hct MCV MCH MCHC RDW Plt Count MPV Immature Gran % Seg Neutrophils % Lymphocytes % Monocytes % Eosinophils % Basophils % Neutrophils # Lymphocytes # Monocytes # Eosinophils # Basophils # Immature Plt Fraction PT INR Sodium Potassium Chloride Carbon Dioxide BUN Creatinine Est GFR ( Amer) Est GFR (Non-Af Amer) BUN/Creatinine Ratio Glucose POC Glucose 159 H 127 H Calculated Osmolality Calcium Urine Color Yellow Urine Clarity Clear Urine pH 6.0 Ur Specific [place] 1.011 Urine Protein Negative Urine Glucose (UA) Normal Urine Ketones Negative Urine Blood Trace H Urine Nitrite Negative Urine Bilirubin Negative Urine Urobilinogen Normal Ur Leukocyte Esterase Trace H Urine Microscopic RBC 3-5 H Urine Microscopic WBC 3-5 H Ur Squamous Epith Cells Moderate H Urine Bacteria None Seen Hyaline Casts None Seen Urine Yeast Few H Ur Culture Indicated? YES A Vancomycin Trough 07/21/17 07/21/17 07/21/17 12:30 15:59 20:47 WBC RBC Hgb Hct MCV MCH MCHC RDW Plt Count MPV Immature Gran % Seg Neutrophils % Lymphocytes % Monocytes % Eosinophils % Basophils % Neutrophils # Lymphocytes # Monocytes # Eosinophils # Basophils # Immature Plt Fraction PT INR Sodium Potassium Chloride Carbon Dioxide BUN Creatinine Est GFR ( Amer) Est GFR (Non-Af Amer) BUN/Creatinine Ratio Glucose POC Glucose 174 H 116 H Calculated Osmolality Calcium Urine Color Urine Clarity Urine pH Ur Specific [place] Urine Protein Urine Glucose (UA) Urine Ketones Urine Blood Urine Nitrite Urine Bilirubin Urine Urobilinogen Ur Leukocyte Esterase Urine Microscopic RBC Urine Microscopic WBC Ur Squamous Epith Cells Urine Bacteria Hyaline Casts Urine Yeast Ur Culture Indicated? Vancomycin Trough 25.3 H* 07/22/17 07/22/17 07/22/17 03:30 03:30 03:30 WBC 7.1 RBC 2.78 L Hgb 7.7 L Hct 26.1 L MCV 93.9 MCH 27.7 L MCHC 29.5 L RDW 16.5 H Plt Count 351 MPV 9.2 L Immature Gran % 0.3 Seg Neutrophils % 73.8 Lymphocytes % 18.2 Monocytes % 6.2 Eosinophils % 1.1 Basophils % 0.4 Neutrophils # 5.3 Lymphocytes # 1.3 Monocytes # 0.4 Eosinophils # 0.1 Basophils # 0.0 Immature Plt Fraction 1.3 PT 34.1 H INR 3.1 Sodium 142 Potassium 3.4 L Chloride 107 Carbon Dioxide 27 BUN 12 Creatinine 0.76 Est GFR ( Amer) > 60 Est GFR (Non-Af Amer) > 60 BUN/Creatinine Ratio 16 Glucose 120 H POC Glucose Calculated Osmolality 295 Calcium 8.1 L Urine Color Urine Clarity Urine pH Ur Specific [place] Urine Protein Urine Glucose (UA) Urine Ketones Urine Blood Urine Nitrite Urine Bilirubin Urine Urobilinogen Ur Leukocyte Esterase Urine Microscopic RBC Urine Microscopic WBC Ur Squamous Epith Cells Urine Bacteria Hyaline Casts Urine Yeast Ur Culture Indicated? Vancomycin Trough - Impressions Impressions Gallbladder Ultrasound 07/18/17 09:00
--- NOTE | 2017-07-22 11:24 | Internal Med Progress Note ---
<Jimmy Ryan - Last Filed: 07/22/17 13:32> Date of Encounter: 07/22/17 Time of Encounter: 09:30 - Assessment and plan (1) MRSA bacteremia Current Visit: Yes Status: Acute Assessment and plan: - Persistent MRSA bacteremia. -Positive blood cultures on 07/09, 07/10, 07/12, 07/14 for MRSA - Blood cultures drawn on 07/16 and 07/17 and 07/18 no growth - Has been on vancomycin with goal trough of 15-20, day 14. Will likely require up to 4 weeks of abx. ID on board. PICC line placed - No obvious source identified. 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 Recommend repeat GILBERTO in 7-10days if symptoms persist. - ID consulted, appreciate recommendations. - AFebrile overnight, vitals unremarkable. No white count - CT scan results 07/18/17 showing bilateral pleural effusions, interlobular septal thickening of lungs with ground glass opacities, mild ascites, high attenuation material within the gallbladder with mild distention, colonic diverticulosis without diverticulitis. -Bone scan revealed degenerative uptake of right hip possibly degenerative in nature versus infectious. Plan - Continue vancomycin and await final results of blood cultures, preliminary negative. - Continue Zosyn coverage for possible aspiration pneumonia - Palliative consulted, code status changed to [id number] - Contact precautions. - infection appears to be clearing, mental status minimally improved. Pt not taking adequate oral nutrition (2) Acute cerebral infarction Current Visit: Yes Status: Acute Assessment and plan: - Acute right thalamic lacunar infarct as seen on brain MRI on 07/08/17 for right leg weakness - Scattered bilateral small infarcts suggestive of emboli of cardiac or septic etiology. - Neurology following appreciate recommendations. - Left carotid stenosis of 60-79%. - Per daughter, pt is not at baseline mental status. May also be attributable to infection vs metabolic etiologies. - Repeat Brain MRI on 07/16/17 showed no acute changes from previous. - Clinically may be mildly improved with less moaning and more eye contact. Plan - Continue statin, aspirin - Pt/OT when able. - Infectious disease following. Neuro has evaluated - Management of AMS and determine if alternative etiologies are contributing - Not a candidate for aggressive measures at this time due to other medical conditions and severity of other acute conditions. (3) Supratherapeutic INR Current Visit: Yes Status: Resolved Assessment and plan: - INR of 8.7 on admission. - Most recently 3.1 this AM Plan - Pharmacy to dose coumadin. History of CVA, goal of INR of 2-3 - Continue to monitor for signs of bleed. (4) Stage II pressure ulcer of buttock Current Visit: Yes Status: Acute Assessment and plan: per nursing. consult wound care. - Possible source of bacteremia. - Dressing changes. - Frequent bed turns. Qualifiers: Laterality: left Qualified Code(s): L89.322 - Pressure ulcer of left buttock, stage 2 (5) Altered mental status Current Visit: Yes Status: Acute Assessment and plan: - Etiology unclear at this time, likely multifactorial - Pain from femoral nerve compression vs acute cerebral infarct vs infectious vs pain vs possible psychological etiology - May be mildly improving. Unsure new baseline. Discussion with family regarding future goals of care. Plan - Treat underlying infection. Currently on Zosyn and vancomycin - Pain control - Possible new baseline, consulted palliative care - Continue mirtazipine tonight. Start seroqeul if able to take PO meds. -Discussion with family regarding goals of care yesterday. Family deciding on PEG tube. They do not believe she would tolerate NG tube for nutrition. From infection standpoint she is nearing discharge but she is still not tolerating adequate oral intake. Family leaning towards no PEG and attempting to feed her Qualifiers: Altered mental status type: unspecified Qualified Code(s): R41.82 - Altered mental status, unspecified (6) Lipoma Current Visit: Yes Status: Acute Assessment and plan: - MRI of the right femur showed a large 21.3 x 9.8 x 7.7 cm fat signal mass. Not exactly sure this is the cause of her issues. - Surgery consulted, no intervention for now per surgery service due to her other more acute medical issues. Plan - Unlikely surgical candidate - LIkely causing significant pain - Will monitor for now Qualifiers: Lipoma location: lower extremity Laterality: right Qualified Code(s): D17.23 - Benign lipomatous neoplasm of skin and subcutaneous tissue of right leg (7) Lumbar spinal stenosis Current Visit: Yes Status: Chronic Assessment and plan: Per CT scans. Has been seen by neurology. - No acute interventions while inpatient. - Pain control Qualifiers: Neurogenic claudication status: unspecified Qualified Code(s): M48.061 - Spinal stenosis, lumbar region without neurogenic claudication (8) Chronic kidney disease (CKD) stage G3a/A3, moderately decreased glomerular filtration rate (GFR) between 45-59 mL/min/1.73 square meter and albuminuria creatinine ratio greater than 300 mg/g Current Visit: Yes Status: Acute Assessment and plan: - Stage III per chart review. - BUN/Cr of 12/0.76 this AM - Calculated Creatinine clearance of 93 - Appears to be at baseline Plan - Monitor for fluid status - Avoid nephrotoxic agents - Continue vancomycin as benefit outweighs risk. Monitor and renally dose per pharmacy with goal trough of 15-20. (9) Anemia Current Visit: Yes Status: Acute Assessment and plan: - H/H of 7.7/26.1 this AM. Hgb of 8.3 yesterday. Has been stable - Likely a result of chronic disease, CKD III. Baseline 8-9 - Received 2 units during this admisssion - Unable to determine if symptomatic but has remained stable for past couple days Plan - Continue to monitor daily CBC - Transfuse as necessary Qualifiers: Anemia type: unspecified type Qualified Code(s): D64.9 - Anemia, unspecified (10) HCAP (healthcare-associated pneumonia) Current Visit: Yes Status: Acute Assessment and plan: - Concern for HCAP on CXR showing bilateral opacities - Aspiration coverage due to AMS - aFebrile, no WBC. - Sputum cultures negative. Blood cultures as above. Strep and legionella negative. Plan - Continue vancomycin day 14, zosyn day 7. - Received 7 days of cefepime - Tylenol PRN fever. (11) Hypokalemia Current Visit: Yes Status: Acute Assessment and plan: Potassium of 3.4 this morning, 3.9 yesterday -Will replenish with 40 mEq of potassium PRN hypokalemia. - Continue to monitor. Code(s): E87.6 - Hypokalemia (12) DVT prophylaxis Current Visit: Yes Status: Acute Assessment and plan: Coumadin. Pharmacy to dose. - Time Spent With Patient 25 - 35 minutes - Subjective Interval history: Patient was seen and examined at bedside this morning. She is moaning this morning but appears to be more awake and alert. Daughter who is at bedside states that she was able to feed her mother approximately 6 bites of yogurt and oatmeal. No complaints at this time. - Constitutional Vitals: Temp Pulse Resp BP Pulse Ox 98.6 F 81 18 133/78 94 07/22/17 08:27 07/22/17 08:27 07/22/17 08:27 07/22/17 08:27 07/22/17 08:27 General appearance: Present: cooperative, mild distress, pleasant, obese, answers questions appropriately Exam: Gen.: Vitals noted. No acute distress. AAOx0. Moaning softly. HEENT: PERRL/EOMI, oropharynx clear, Normocephalic, atraumatic, MMM Cardiac: Irregular, no murmur, +S1/S2 Pulmonary: CTA bilaterally, no wheezes, rales or rhonchi, equal chest expansion Abdomen: soft, nontender, BS noted, no guarding MSK: ROM intact, no joint swelling noted Extremities: no BLE edema, nontender calf, no cyanosis or clubbing Neuro: A&Ox0, moves all extremities, no focal deficits Psych: Appropriate mood and behavior Internal Medicine: Result - Labs CBC & Chem 7: 07/22/17 03:30 07/22/17 03:30 Labs: Short CBC 07/22/17 Range/Units 03:30 WBC 7.1 (4.3-11.1) K/mcL Hgb 7.7 L (11.5-15.4) g/dL Hct 26.1 L (35.3-44.9) % Plt Count 351 (140-400) K/mcL Neutrophils # 5.3 (1.6-8.9) K/mcL BMP 07/22/17 03:30 Sodium 142 Potassium 3.4 L Chloride 107 Carbon Dioxide 27 BUN 12 Creatinine 0.76 Glucose 120 H Calcium 8.1 L Urine 07/15/17 Range/Units 13:20 Urine Color Yellow (Yellow) Urine Clarity Clear (Clear) Urine pH 6.0 (5.0-8.0) pH Units Ur Specific [place] 1.011 (1.010-1.025) Urine Protein Negative (Neg-Trace) mg/dL Urine Glucose (UA) Normal (Normal) mg/dL - ABG Interpretation ABG results: ABG ABG pH 7.44 pH Units (7.32-7.45) 07/15/17 19:10 ABG pCO2 48 mmHg (35-45) H 07/15/17 19:10 ABG pO2 73 mmHg (85-104) L 07/15/17 19:10 ABG O2 Saturation 95 % (95-98) 07/15/17 19:10 PT/INR, D-dimer PT 34.1 Seconds (9.4-12.1) H 07/22/17 03:30 - Impressions Impressions Gallbladder Ultrasound 07/18/17 09:00 IMPRESSION: Sludge and several small stones seen within the gallbladder with mild gallbladder wall thickening. The patient did not have a positive sonographic Coyle's sign. There is no definitive evidence for acute cholecystitis. If further evaluation is needed, recommend HIDA scan. D/ / 07/18/2017 09:03:33 Wai Andrade MD / ronak Interpreting Provider: Wai Andrade MD Consult Discharge Plan - Plan Referrals: Barbra Juarez MD [Primary Care Provider] - Prince Wolf MD [Family Provider] - <Jc Thompson - Last Filed: 07/22/17 18:04> Date of Encounter: 07/22/17 - Assessment and plan (1) Acute respiratory failure with hypoxia Current Visit: Yes Status: Acute (2) Pleural effusion Current Visit: Yes Status: Acute (3) Acute metabolic encephalopathy Current Visit: Yes Status: Acute (4) MRSA (methicillin resistant Staphylococcus aureus) infection Current Visit: Yes Status: Acute (5) MRSA bacteremia Current Visit: Yes Status: Acute (6) Cerebrovascular accident (CVA) due to bilateral embolism of anterior cerebral arteries Current Visit: Yes Status: Acute (7) Chronic kidney disease (CKD) stage G3a/A3, moderately decreased glomerular filtration rate (GFR) between 45-59 mL/min/1.73 square meter and albuminuria creatinine ratio greater than 300 mg/g Current Visit: Yes Status: Acute (8) CHF (congestive heart failure) Current Visit: Yes Status: Chronic Qualifiers: Congestive heart failure type: systolic Congestive heart failure chronicity : acute on chronic Qualified Code(s): I50.23 - Acute on chronic systolic ( congestive) heart failure (9) Right hip pain Current Visit: Yes Status: Acute (10) COPD (chronic obstructive pulmonary disease) Current Visit: Yes Status: Chronic Qualifiers: COPD type: unspecified COPD Qualified Code(s): J44.9 - Chronic obstructive pulmonary disease, unspecified (11) Afib Current Visit: No Status: Chronic Qualifiers: Atrial fibrillation type: paroxysmal Qualified Code(s): I48.0 - Paroxysmal atrial fibrillation (12) CAD (coronary artery disease) Current Visit: No Status: Chronic Qualifiers: Coronary Disease-Associated Artery/Lesion type: [place] artery [place] vs. transplanted heart: [place] heart Associated angina: without angina Qualified Code(s): I25.10 - Atherosclerotic heart disease of [place] coronary artery without angina pectoris - Time Spent With Patient My time was 45min - Constitutional Vitals: Temp Pulse Resp BP Pulse Ox 98.7 F 83 18 134/77 95 07/22/17 14:02 07/22/17 14:02 07/22/17 14:02 07/22/17 14:02 07/22/17 14:02 Internal Medicine: Result - Labs CBC & Chem 7: 07/22/17 03:30 07/22/17 03:30 Labs: Short CBC 07/22/17 Range/Units 03:30 WBC 7.1 (4.3-11.1) K/mcL Hgb 7.7 L (11.5-15.4) g/dL Hct 26.1 L (35.3-44.9) % Plt Count 351 (140-400) K/mcL Neutrophils # 5.3 (1.6-8.9) K/mcL BMP 07/22/17 03:30 Sodium 142 Potassium 3.4 L Chloride 107 Carbon Dioxide 27 BUN 12 Creatinine 0.76 Glucose 120 H Calcium 8.1 L Urine 07/15/17 Range/Units 13:20 Urine Color Yellow (Yellow) Urine Clarity Clear (Clear) Urine pH 6.0 (5.0-8.0) pH Units Ur Specific [place] 1.011 (1.010-1.025) Urine Protein Negative (Neg-Trace) mg/dL Urine Glucose (UA) Normal (Normal) mg/dL - ABG Interpretation ABG results: ABG ABG pH 7.44 pH Units (7.32-7.45) 07/15/17 19:10 ABG pCO2 48 mmHg (35-45) H 07/15/17 19:10 ABG pO2 73 mmHg (85-104) L 07/15/17 19:10 ABG O2 Saturation 95 % (95-98) 07/15/17 19:10 PT/INR, D-dimer PT 34.1 Seconds (9.4-12.1) H 07/22/17 03:30 - Attending Attestation I examined this patient and my medical decision-making was reviewed with the Resident Physician on 07/22/17. I agree with the documented findings, disposition and treatment plan as described except to the extent set forth below. Ms New is currently admitted for MRSA bacteremia and encephalopathy. She remains moderate to high risk due to potential for worsening clinical status. Ms New had a lot of agitation earlier today but is resting now. She seems more dyspneic at this time. CXR shows increased fluid on L. Discussed with family at bedside. Will try diuresis. Exam Alert but very restless Heart reg and not tachy Lungs diminished Abd soft I/P 1. MRSA bacteremia 2. L pleural effusion - try Lasix. Do not feel she could tolerate thoracentesis at this time. Further diagnoses and plan as above.
[2017-07-22] MEDS: *HR* LORazepam 2 MG/ML VIAL IVP SCH ×2 (12:59→20:10)
[2017-07-22] MEDS ORDERED: Potassium Chloride 40 MEQ, Lidocaine 1% 2 ML in D5% in Water 500 ML IVPB ONE (13:40)
[2017-07-22] MEDS: Pantoprazole 40 MG VIAL IVP SCH (15:06)
[2017-07-22] MEDS: Lactobacillus 1 EACH CAP.SPRINK PO SCH (17:53)
[2017-07-22] MEDS: *HR* FentaNYL PATCH 75 MCG PATCH TD SCH (20:10)
[2017-07-22] MEDS: Furosemide 40 MG/4 ML VIAL IVP SCH (20:12)
[2017-07-23] MEDS ORDERED: *HR* LORazepam 2 MG/ML VIAL IVP ONE (00:25)
[2017-07-23] MEDS: *HR* HYDROmorphone (PF) 1 MG/ML SYRINGE IVP PRN ×5 (00:35→23:27)
[2017-07-23] MEDS: *HR* LORazepam 2 MG/ML VIAL IVP SCH ×6 (02:54→21:20)
[2017-07-23] MEDS ORDERED: Haloperidol Lactate 5 MG/ML VIAL IVP ONE (03:53)
[2017-07-23 04:55] LABS: Hematocrit 25.6 % (35.3-44.9); Hemoglobin 7.7 g/dL (11.5-15.4); Mean Corpuscular HGB Conc 30.1 g/dL (31.6-35.5); Mean Corpuscular Hemoglobin 27.7 pg (28.0-33.3); Mean Corpuscular Volume 92.1 fL (83.0-100.0); Mean Platelet Volume 9.4 fL (9.4-12.4); Platelet Count 299 K/mcL (140-400); Red Blood Count 2.78 M/mcL (3.82-4.97); Red Cell Distribution Width 16.9 % (11.5-14.5)
[2017-07-23 05:24] LABS: BUN/Creatinine Ratio 13 (6-26); Blood Urea Nitrogen 11 mg/dL (8-23); Carbon Dioxide 31 mEq/L (23-29); Chloride 106 mEq/L (98-107); Glucose 134 mg/dL (70-105); Osmolality,Calculated 299 (280-300); Potassium 3.2 mEq/L (3.5-5.1); Sodium 144 mEq/L (136-145); eGFR For African Americans > 60 (> 60); eGFR For Non-African Americans > 60 (> 60)
[2017-07-23] MEDS: Lactobacillus 1 EACH CAP.SPRINK PO SCH (07:33)
[2017-07-23] MEDS: *HR* Amiodarone 200 MG TABLET PO SCH (07:35)
[2017-07-23] MEDS: Pantoprazole 40 MG VIAL IVP SCH (07:38)
[2017-07-23] MEDS: Furosemide 40 MG/4 ML VIAL IVP SCH ×2 (07:38→16:33)
[2017-07-23] MEDS: Nystatin SUSP 5 ML UD.LIQ PO SCH ×4 (07:38→21:20)
[2017-07-23] MEDS: Silvasorb 44.4 ML TUBE TP SCH (07:39)
[2017-07-23] MEDS: Nitroglycerin 0.4 MG PATCH.TD24 TD SCH (07:39)
[2017-07-23] MEDS: Piperacillin/Tazobactam 3.375 GM/200 ML BAG IVPB SCH ×3 (07:39→19:16)
[2017-07-23] MEDS: Insulin LISPRO 300 UNITS/3 ML VIAL SQ SCH ×4 (07:45→21:15)
--- NOTE | 2017-07-23 09:15 | Infectious Disease Progress No ---
Date of Encounter: 07/23/17 Time of Encounter: 09:12 - Assessment and Plan (1) MRSA bacteremia Current Visit: Yes Status: Acute Causative organism: MRSA. Source not clear. The patient did have a femur MRI that showed moderate volume of fluid in the right greater trochanteric bursa, but no evidence of septic arthritis. Joint aspiration negative for septic arthritis as well. The patient had a CT of the chest, abdomen, and pelvis, as well as a nuclear medicine bone scan. No definitive source of the MRSA bacteremia, but the patient was noted to have significant bilateral pleural effusions. Additionally, review of the bone scan shows increased uptake in the right hip per the hospitalist team's review of the imaging. Radiology recommends WBC scan to further evaluate, but recommend holding off for now as it likely won't change the course of the patient's treatment. Blood cultures drawn 07/08/17 grew MRSA, 2/2 sets. Additional blood cultures drawn 07/09/17 were positive 2/2 sets as well. Repeat blood cultures drawn 07/10/17 x 1 set and 07/12/17 x 1 set are also positive. Additional blood cultures drawn 07/14/17 are positive 1/2 sets. Repeat blood cultures drawn 07/16/17 are negative x 2 sets. Additional blood cultures drawn 07/17/17 are negative x 2 sets. The patient has one major and one minor Modified Lindsay's Criteria. TTE negative for vegetations. No endocarditis stigmata noted on exam. GILBERTO negative. CODY of Vanc is 1. Etiology of persistent bacteremia not clear, but the last positive set of blood cultures were drawn <48 hours after the patient had therapeutic Vanc trough, which could also be contributing to this. Most recent set of blood cultures are negative so far. Continue Vancomycin IV. Pharmacy to dose. Goal trough ~15. Vanc trough 20. Duration of treatment depends on the clinical picture. Monitor renal function and for drug toxicity and dose-adjust antibiotics. (2) Altered mental status Current Visit: Yes Status: Acute Likely secondary to acute lacunar infarct and worsened by infectious process and medications. CT head negative, but MRI of the brain showed multiple small infarcts in the bilateral mcdowell radiata and centrum semiovale compatible with bilateral acute lacunar infarcts. Neurology consulted. CT head and brain MRI repeated 07/16/17, but do not show any new findings. Continue to monitor closely. Qualifiers: Altered mental status type: unspecified Qualified Code(s): R41.82 - Altered mental status, unspecified (3) Lacunar infarct, acute Current Visit: Yes Status: Acute (4) Lipoma Current Visit: Yes Status: Acute Location: Right thigh. CT scan of the right hip showed a partially visualized fat density mass in the psoterior aspect of the proximal right thigh with thin internal septations, most likely representing a lipoma or benign atypical lipomatous tumor. MRI of the right femur again showed findings consistent with lipoma vs. benign atypical lipomatous tumor with significant mass effect the hamstring musculature. Qualifiers: Lipoma location: lower extremity Laterality: right Qualified Code(s): D17.23 - Benign lipomatous neoplasm of skin and subcutaneous tissue of right leg (5) Supratherapeutic INR Current Visit: Yes Status: Resolved Improved. Further workup and evaluation per the primary team. (6) Chronic kidney disease (CKD) stage G3a/A3, moderately decreased glomerular filtration rate (GFR) between 45-59 mL/min/1.73 square meter and albuminuria creatinine ratio greater than 300 mg/g Current Visit: Yes Status: Acute Serum creatinine normal at this time. Continue to trend. Dose-adjust antibiotics as needed. Avoid nephrotoxins as able. Urine output improved yesterday. Not sure if there was an issue with the crain or not. (7) Chronic pain syndrome Current Visit: Yes Status: Acute Patient has had multiple MRIs and CT scans of the cervical, lumbar, thoracic spine and hips which revealed degenerative arthritis with no acute infectious process. (8) Arthritis Current Visit: Yes Status: Acute (9) Diabetes mellitus type 2 in obese Current Visit: No Status: Chronic Recommend aggressive glucose monitoring and control. Management per the primary team. 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 There was also a moderate volume of fluid in the right greater trochanteric bursa. Ortho consulted and appreciate their recommendations. Status post right hip bursa aspiration. Did not appear to be pus. Gram stain and culture negative. Status post nuclear medicine bone scan that is concerning for increased uptake in the right hip and pelvis per the hospitalist team's review of the films. Radiology recommends WBC scan. Recommend holding off on WBC scan for now as it likely will not change the course of the patient's treatment. Pain management per the primary team. (11) HCAP (healthcare-associated pneumonia) Current Visit: Yes Status: Acute CXR completed 07/08/17 showed findings suspicious for bibasilar atelectasis or PNA. Not sure if the patient truly has PNA or not. Currently on day 7 of Cefepime and received 1 day of Zosyn prior to switching to cefepime. Ct chest showed dense consolidations to the bilateral lower lobes and to the left upper love with complete collapse of the left upper lobe felt most likely related to dependent/compressive atelectasis. CT findings not indicative of PNA, but given the patient's altered mental status , she is at risk for silent aspiration. CXR 07/22/17 showed total opacification of the left hemithorax representing atelectasis of the left lung with a left pleural effusion. Continue Zosyn 3.375 grams IV Q8H (day 8). Duration of treatment depends on the clinical picture, but likely 10 days. (12) Crain catheter in place Current Visit: Yes Status: Acute Crain catheter placed on admission. Urine color and clarity improved since the crain was switched out, but sediment noted again in her urine. Urine output improved, 1000ml in 24 hours yesterday. Renal function normal. (13) Pleural effusion Current Visit: No Status: Acute Likely secondary to third-spacing. CT chest shows bilateral pleural effusions, large on the left and moderate to large on the right. CXR 07/22/17 shows total opacification of the left hemithroax likely respresenting atelectasis secondary to the pleural effusion. Likely contributing to the patient's hypoxic episodes when her O2 comes off. Consider IR to drain. Does not appear infected, but recommend sending fluid for cell count with differential, protein, LDH, glucose, and gram stain with culture. Recommend pulmonary to evaluate. - Subjective Interval history: Patient seen and examined. No acute events noted overnight. Patient continues to have AMS and cannot give me any ROS information. She is crying and resistant to the exam. She has been afebrile. The patient has not had anything to eat yet this morning. No other new issues/concerns at this time. Infect Dis PN-Objective Data - Labs CBC & Chem 7: 07/23/17 04:15 07/23/17 04:15 Labs: Laboratory Results - last 24 hr 07/22/17 07/22/17 07/22/17 08:21 13:57 17:14 WBC RBC Hgb Hct MCV MCH MCHC RDW Plt Count MPV Sodium Potassium Chloride Carbon Dioxide BUN Creatinine Est GFR ( Amer) Est GFR (Non-Af Amer) BUN/Creatinine Ratio Glucose POC Glucose 108 H 194 H 220 H Calculated Osmolality Calcium Vancomycin Trough 07/23/17 07/23/17 07/23/17 04:15 04:15 04:15 WBC 7.7 RBC 2.78 L Hgb 7.7 L Hct 25.6 L MCV 92.1 MCH 27.7 L MCHC 30.1 L RDW 16.9 H Plt Count 299 MPV 9.4 Sodium 144 Potassium 3.2 L Chloride 106 Carbon Dioxide 31 H BUN 11 Creatinine 0.87 Est GFR ( Amer) > 60 Est GFR (Non-Af Amer) > 60 BUN/Creatinine Ratio 13 Glucose 134 H POC Glucose Calculated Osmolality 299 Calcium 8.0 L Vancomycin Trough 20.7 H* Cultures: Cultures 07/17/17 10:03 Blood Culture - Final Peripheral Venipuncture No growth. 07/15/17 13:20 Urine Culture - Final Urine,Crain [place] glabrata 07/16/17 13:51 Blood Culture - Final Peripheral Venipuncture No growth. 07/16/17 13:51 Blood Culture - Final Peripheral Venipuncture No growth. 07/14/17 17:59 Blood Culture - Final Peripheral Venipuncture No growth. 07/18/17 04:05 Blood Culture - Preliminary Peripheral Venipuncture No growth. 07/18/17 04:00 Blood Culture - Preliminary Peripheral Venipuncture No growth. 07/14/17 07:56 Blood Culture - Final Peripheral Venipuncture Methicillin Resistant S.aureus 07/15/17 11:27 Gram Stain - Final Left Hip 07/12/17 03:55 Blood Culture - Final Peripheral Venipuncture Methicillin Resistant S.aureus 07/10/17 14:13 Blood Culture - Final Peripheral Venipuncture Methicillin Resistant S.aureus 07/09/17 14:15 Blood Culture - Final Peripheral Venipuncture Methicillin Resistant S.aureus 07/09/17 14:15 Blood Culture - Final Peripheral Venipuncture Methicillin Resistant S.aureus 07/08/17 00:55 Blood Culture - Final Peripheral Venipuncture Methicillin Resistant S.aureus 07/08/17 00:55 Blood Culture - Final Peripheral Venipuncture Methicillin Resistant S.aureus 07/08/17 08:10 Legionella Antigen - Final Urine,Clean Catch 07/08/17 08:10 Streptococcus pneumoniae Antigen (M - Final Urine,Clean Catch Serology 07/17/17 07/15/17 07/14/17 Range/Units 09:15 13:20 07:56 Urine Color Yellow (Yellow) Urine Clarity Clear (Clear) Urine pH 6.0 (5.0-8.0) pH Units Ur Specific Solomon 1.011 (1.010-1.025) Urine Protein Negative (Neg-Trace) mg/dL Urine Glucose (UA) Normal (Normal) mg/dL Urine Ketones Negative (Negative) mg/dL Urine Blood Trace H (Negative) Urine Nitrite Negative (Negative) Urine Bilirubin Negative (Negative) Urine Urobilinogen Normal (Normal) mg/dL Ur Leukocyte Esterase Trace H (Negative) Urine Microscopic RBC 3-5 H (0-3) per hpf Urine Microscopic WBC 3-5 H (0-3) per hpf Ur Squamous Epith Cells Moderate H (None-Few) per lpf Urine Bacteria None Seen (None-Few) per hpf Hyaline Casts None Seen (None-Few) per lpf Urine Yeast Few H (None Seen) per hpf Ur Culture Indicated? YES A (NO) A. baumannii (PCR) Not Detected (Not Detect) Chlamy pneumoniae PCR Not Detected (Not Detect) Adenovirus (PCR) Not Detected (Not Detect) B. pertussis DNA (PCR) Not Detected (Not Detect) B.parapertussis DNA PCR Not Detected (Not Detect) Adelina albicans (PCR) Not Detected (Not Detect) C. glabrata (PCR) Not Detected (Not Detect) C. krusei (PCR) Not Detected (Not Detect) C. parapsilosis (PCR) Not Detected (Not Detect) C. tropicalis (PCR) Not Detected (Not Detect) Coronavirus OC43 (PCR) Not Detected (Not Detect) Coronavirus HKU1 (PCR) Not Detected (Not Detect) Coronavirus 229E (PCR) Not Detected (Not Detect) Coronavirus NL63 (PCR) Not Detected (Not Detect) Enterobacteriac sp PCR Not Detected (Not Detect) E. cloacae complex PCR Not Detected (Not Detect) Enterococcus sp PCR Not Detected (Not Detect) E. coli (PCR) Not Detected (Not Detect) H. influenzae (PCR) Not Detected (Not Detect) Human Metapneumovir PCR Not Detected (Not Detect) Influenza A (H1) PCR Not Detected (Not Detect) Influ A (H1N1/09) PCR Not Detected (Not Detect) Influenza A (H3) PCR Not Detected (Not Detect) Influenza A Untype (PCR) Not Detected (Not Detect) Influenza Type B (PCR) Not Detected (Not Detect) Klebsiella oxytoca PCR Not Detected (Not Detect) Klebsiella pneumoniae Not Detected (Not Detect) List. monocytogenes PCR Not Detected (Not Detect) M.pneumoniae DNA (PCR) Not Detected (Not Detect) N. meningitidis (PCR) Not Detected (Not Detect) Parainfluenza 1 (PCR) Not Detected (Not Detect) Parainfluenza 2 (PCR) Not Detected (Not Detect) Parainfluenza 3 (PCR) Not Detected (Not Detect) Parainfluenza 4 (PCR) Not Detected (Not Detect) Proteus species (PCR) Not Detected (Not Detect) RSV (PCR) Not Detected (Not Detect) Entero/Rhino (PCR) Not Detected (Not Detect) Serratia marcescens PCR Not Detected (Not Detect) Staphylococcus sp PCR DETECTED A (Not Detect) Staph aureus (PCR) DETECTED A (Not Detect) mecA-Methicil Res Gene DETECTED A (Not Detect) Streptococcus sp PCR Not Detected (Not Detect) Group A Strep DNA Not Detected (Not Detect) Group B Strep (PCR) Not Detected (Not Detect) Strep pneumoniae (PCR) Not Detected (Not Detect) P. aeruginosa (PCR) Not Detected (Not Detect) Alexa/B-Vanco Res Genes Not Detected (Not Detect) KPC (blaKPC) Detect PCR Not Detected (Not Detect) 07/09/17 07/09/17 07/08/17 Range/Units 14:15 14:15 08:10 Urine Color Dark Yellow (Yellow) Urine Clarity Cloudy A (Clear) Urine pH 6.0 (5.0-8.0) pH Units Ur Specific Solomon > 1.030 H (1.010-1.025) Urine Protein 100 H (Neg-Trace) mg/dL Urine Glucose (UA) Normal (Normal) mg/dL Urine Ketones Negative (Negative) mg/dL Urine Blood Trace H (Negative) Urine Nitrite Negative (Negative) Urine Bilirubin Small H (Negative) Urine Urobilinogen Normal (Normal) mg/dL Ur Leukocyte Esterase Negative (Negative) Urine Microscopic RBC 5-15 H (0-3) per hpf Urine Microscopic WBC 30-50 H (0-3) per hpf Ur Squamous Epith Cells Moderate H (None-Few) per lpf Urine Bacteria Few (None-Few) per hpf Hyaline Casts Few (None-Few) per lpf Urine Yeast Moderate H (None Seen) per hpf Ur Culture Indicated? NO (NO) A. baumannii (PCR) Not Detected Not Detected (Not Detect) Chlamy pneumoniae PCR (Not Detect) Adenovirus (PCR) (Not Detect) B. pertussis DNA (PCR) (Not Detect) B.parapertussis DNA PCR (Not Detect) Adelina albicans (PCR) Not Detected Not Detected (Not Detect) C. glabrata (PCR) Not Detected Not Detected (Not Detect) C. krusei (PCR) Not Detected Not Detected (Not Detect) C. parapsilosis (PCR) Not Detected Not Detected (Not Detect) C. tropicalis (PCR) Not Detected Not Detected (Not Detect) Coronavirus OC43 (PCR) (Not Detect) Coronavirus HKU1 (PCR) (Not Detect) Coronavirus 229E (PCR) (Not Detect) Coronavirus NL63 (PCR) (Not Detect) Enterobacteriac sp PCR Not Detected Not Detected (Not Detect) E. cloacae complex PCR Not Detected Not Detected (Not Detect) Enterococcus sp PCR Not Detected Not Detected (Not Detect) E. coli (PCR) Not Detected Not Detected (Not Detect) H. influenzae (PCR) Not Detected Not Detected (Not Detect) Human Metapneumovir PCR (Not Detect) Influenza A (H1) PCR (Not Detect) Influ A (H1N1/09) PCR (Not Detect) Influenza A (H3) PCR (Not Detect) Influenza A Untype (PCR) (Not Detect) Influenza Type B (PCR) (Not Detect) Klebsiella oxytoca PCR Not Detected Not Detected (Not Detect) Klebsiella pneumoniae Not Detected Not Detected (Not Detect) List. monocytogenes PCR Not Detected Not Detected (Not Detect) M.pneumoniae DNA (PCR) (Not Detect) N. meningitidis (PCR) Not Detected Not Detected (Not Detect) Parainfluenza 1 (PCR) (Not Detect) Parainfluenza 2 (PCR) (Not Detect) Parainfluenza 3 (PCR) (Not Detect) Parainfluenza 4 (PCR) (Not Detect) Proteus species (PCR) Not Detected Not Detected (Not Detect) RSV (PCR) (Not Detect) Entero/Rhino (PCR) (Not Detect) Serratia marcescens PCR Not Detected Not Detected (Not Detect) Staphylococcus sp PCR DETECTED A DETECTED A (Not Detect) Staph aureus (PCR) DETECTED A DETECTED A (Not Detect) mecA-Methicil Res Gene DETECTED A DETECTED A (Not Detect) Streptococcus sp PCR Not Detected Not Detected (Not Detect) Group A Strep DNA Not Detected Not Detected (Not Detect) Group B Strep (PCR) Not Detected Not Detected (Not Detect) Strep pneumoniae (PCR) Not Detected Not Detected (Not Detect) P. aeruginosa (PCR) Not Detected Not Detected (Not Detect) Alexa/B-Vanco Res Genes Not Detected N/A (Not Detect) KPC (blaKPC) Detect PCR Not Detected N/A (Not Detect) 07/08/17 Range/Units 00:55 Urine Color (Yellow) Urine Clarity (Clear) Urine pH (5.0-8.0) pH Units Ur Specific Solomon (1.010-1.025) Urine Protein (Neg-Trace) mg/dL Urine Glucose (UA) (Normal) mg/dL Urine Ketones (Negative) mg/dL Urine Blood (Negative) Urine Nitrite (Negative) Urine Bilirubin (Negative) Urine Urobilinogen (Normal) mg/dL Ur Leukocyte Esterase (Negative) Urine Microscopic RBC (0-3) per hpf Urine Microscopic WBC (0-3) per hpf Ur Squamous Epith Cells (None-Few) per lpf Urine Bacteria (None-Few) per hpf Hyaline Casts (None-Few) per lpf Urine Yeast (None Seen) per hpf Ur Culture Indicated? (NO) A. baumannii (PCR) Not Detected (Not Detect) Chlamy pneumoniae PCR (Not Detect) Adenovirus (PCR) (Not Detect) B. pertussis DNA (PCR) (Not Detect) B.parapertussis DNA PCR (Not Detect) Adelina albicans (PCR) Not Detected (Not Detect) C. glabrata (PCR) Not Detected (Not Detect) C. krusei (PCR) Not Detected (Not Detect) C. parapsilosis (PCR) Not Detected (Not Detect) C. tropicalis (PCR) Not Detected (Not Detect) Coronavirus OC43 (PCR) (Not Detect) Coronavirus HKU1 (PCR) (Not Detect) Coronavirus 229E (PCR) (Not Detect) Coronavirus NL63 (PCR) (Not Detect) Enterobacteriac sp PCR Not Detected (Not Detect) E. cloacae complex PCR Not Detected (Not Detect) Enterococcus sp PCR Not Detected (Not Detect) E. coli (PCR) Not Detected (Not Detect) H. influenzae (PCR) Not Detected (Not Detect) Human Metapneumovir PCR (Not Detect) Influenza A (H1) PCR (Not Detect) Influ A (H1N1/09) PCR (Not Detect) Influenza A (H3) PCR (Not Detect) Influenza A Untype (PCR) (Not Detect) Influenza Type B (PCR) (Not Detect) Klebsiella oxytoca PCR Not Detected (Not Detect) Klebsiella pneumoniae Not Detected (Not Detect) List. monocytogenes PCR Not Detected (Not Detect) M.pneumoniae DNA (PCR) (Not Detect) N. meningitidis (PCR) Not Detected (Not Detect) Parainfluenza 1 (PCR) (Not Detect) Parainfluenza 2 (PCR) (Not Detect) Parainfluenza 3 (PCR) (Not Detect) Parainfluenza 4 (PCR) (Not Detect) Proteus species (PCR) Not Detected (Not Detect) RSV (PCR) (Not Detect) Entero/Rhino (PCR) (Not Detect) Serratia marcescens PCR Not Detected (Not Detect) Staphylococcus sp PCR DETECTED A (Not Detect) Staph aureus (PCR) DETECTED A (Not Detect) mecA-Methicil Res Gene DETECTED A (Not Detect) Streptococcus sp PCR Not Detected (Not Detect) Group A Strep DNA Not Detected (Not Detect) Group B Strep (PCR) Not Detected (Not Detect) Strep pneumoniae (PCR) Not Detected (Not Detect) P. aeruginosa (PCR) Not Detected (Not Detect) Alexa/B-Vanco Res Genes Not Detected (Not Detect) KPC (blaKPC) Detect PCR Not Detected (Not Detect) - Impressions Impressions Chest X-Ray 07/22/17 16:30 IMPRESSION: 1. Total opacification of the left hemithorax could represent atelectasis of the left lung with a left pleural effusion. 2. Increased pulmonary edema in the right lung. 3. Left-sided central venous catheter in place terminating in the SVC. D/ / 07/22/2017 16:58:00 Thom Teixeira MD / carla Interpreting Provider: Thom Teixeira MD Exam - Constitutional Vitals: Temp Pulse Resp BP Pulse Ox 99.2 F 79 17 124/73 95 07/23/17 07:50 07/23/17 07:50 07/23/17 07:50 07/23/17 07:50 07/23/17 07:50 General appearance: average body habitus, no febrile, no cooperative - Head Head exam: Present: atraumatic, normal inspection, normocephalic - ENT ENT exam: Present: mucous membranes moist - Neck Neck exam: Present: normal inspection - Respiratory Respiratory exam: Present: CTAB. Absent: rales, respiratory distress, rhonchi, wheezes - Cardiovascular Cardiovascular exam: Present: RRR, +S1, +S2 - GI/Abdominal GI/Abdominal exam: Present: normal bowel sounds, soft. Absent: distended, tenderness Additional comments: Crain catheter draining clear yellow urine. - Extremities Exam Extremities exam: Absent: joint swelling, pedal edema, tenderness Additional comments: Chronic deformity noted to the BLE. Patient cries out with pain with movement of the RLE. - Neurological Exam Neurological exam: Present: altered. Absent: facial droop - Psychiatric Psychiatric exam: Present: agitated - Skin Skin exam: Present: dry, intact, normal color, warm - VTE Documentation of Mechanical Device: Intermittent pneumatic compression device Consult Discharge Plan - Plan Referrals: Barbra Juarez MD [Primary Care Provider] - Prince Wolf MD [Family Provider] - - Attending Attestation I examined this patient and my medical decision-making was reviewed with the Resident Physician. I agree with the documented findings, disposition and treatment plan as described except to the extent set forth below.
[2017-07-23 09:34] LABS: INR 4.2; Prothrombin Time 46.8 Seconds (9.4-12.1)
[2017-07-23] MEDS: Vancomycin 1,250 MG in D5% in Water 250 ML IVPB SCH ×2 (11:21→21:34)
--- NOTE | 2017-07-23 19:10 | Internal Med Progress Note ---
Date of Encounter: 07/23/17 Time of Encounter: 16:30 - Assessment and plan (1) Acute respiratory failure with hypoxia Current Visit: Yes Status: Acute Assessment and plan: Continue oxygen supplementation. (2) Pleural effusion Current Visit: Yes Status: Acute Assessment and plan: Has had recurrence of L pleural effusion. Unable to sit up for thoracentesis. Following. (3) Acute metabolic encephalopathy Current Visit: Yes Status: Acute Assessment and plan: Continues to be agitated at times. PRN meds. (4) MRSA (methicillin resistant Staphylococcus aureus) infection Current Visit: Yes Status: Acute Assessment and plan: On IV Vancomycin (5) MRSA bacteremia Current Visit: Yes Status: Acute Assessment and plan: - Persistent MRSA bacteremia. -Positive blood cultures on 07/09, 07/10, 07/12, 07/14 for MRSA - Blood cultures drawn on 07/16 and 07/17 and 07/18 no growth - Has been on vancomycin with goal trough of 15-20, day 14. Will likely require up to 4 weeks of abx. ID on board. PICC line placed - No obvious source identified. 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 Recommend repeat GILBERTO in 7-10days if symptoms persist. - ID consulted, appreciate recommendations. - AFebrile overnight, vitals unremarkable. No white count - CT scan results 07/18/17 showing bilateral pleural effusions, interlobular septal thickening of lungs with ground glass opacities, mild ascites, high attenuation material within the gallbladder with mild distention, colonic diverticulosis without diverticulitis. -Bone scan revealed degenerative uptake of right hip possibly degenerative in nature versus infectious. Plan - Continue vancomycin and await final results of blood cultures, preliminary negative. - Continue Zosyn coverage for possible aspiration pneumonia - Palliative consulted, code status changed to DNR-CCA-DNI - Contact precautions. - infection appears to be clearing, mental status minimally improved. Pt not taking adequate oral nutrition (6) Cerebrovascular accident (CVA) due to bilateral embolism of anterior cerebral arteries Current Visit: Yes Status: Acute Assessment and plan: Continue supportive care. (7) Chronic kidney disease (CKD) stage G3a/A3, moderately decreased glomerular filtration rate (GFR) between 45-59 mL/min/1.73 square meter and albuminuria creatinine ratio greater than 300 mg/g Current Visit: Yes Status: Acute Assessment and plan: - Stage III per chart review. - BUN/Cr of 12/0.76 this AM - Calculated Creatinine clearance of 93 - Appears to be at baseline Plan - Monitor for fluid status - Avoid nephrotoxic agents - Continue vancomycin as benefit outweighs risk. Monitor and renally dose per pharmacy with goal trough of 15-20. (8) CHF (congestive heart failure) Current Visit: Yes Status: Chronic Assessment and plan: Continue diuresis at this time. Qualifiers: Congestive heart failure type: systolic Congestive heart failure chronicity : acute on chronic Qualified Code(s): I50.23 - Acute on chronic systolic ( congestive) heart failure (9) COPD (chronic obstructive pulmonary disease) Current Visit: Yes Status: Chronic Assessment and plan: Stable Qualifiers: COPD type: unspecified COPD Qualified Code(s): J44.9 - Chronic obstructive pulmonary disease, unspecified (10) Afib Current Visit: No Status: Chronic Assessment and plan: No issues at this time. Qualifiers: Atrial fibrillation type: paroxysmal Qualified Code(s): I48.0 - Paroxysmal atrial fibrillation (11) CAD (coronary artery disease) Current Visit: No Status: Chronic Qualifiers: Coronary Disease-Associated Artery/Lesion type: [place] artery [place] vs. transplanted heart: [place] heart Associated angina: without angina Qualified Code(s): I25.10 - Atherosclerotic heart disease of [place] coronary artery without angina pectoris - Subjective Interval history: Ms New is currently admitted for MRSA bacteremia and CVAs. She remains moderate to high risk due to potential for worsening clinical status. Ms New is resting at this time. She has had episodes of agitation today. She has not eaten much. I spoke with family today regarding nutrition. We discussed short term small bore feeding tube to get meds, etc. - Constitutional Vitals: Temp Pulse Resp BP Pulse Ox 98.7 F 78 16 129/68 93 07/23/17 15:00 07/23/17 15:00 07/23/17 15:00 07/23/17 15:00 07/23/17 15:00 General appearance: Present: A&O X 0, obese - Head Head exam: Present: normocephalic - Eye Eye exam: Present: conjuntiva pink - ENT ENT exam: Present: mucous membranes dry - Respiratory Respiratory exam: Absent: accessory muscle use, respiratory distress Additional comments: NO overt distress at this time. - Cardiovascular Cardiovascular exam: Present: RRR. Absent: tachycardia - GI/Abdominal GI/Abdominal exam: Present: soft - Extremities Exam Extremities exam: Present: warm - Neurological Exam Neurological exam: Present: alert - Skin Skin exam: Present: warm. Absent: rash Internal Medicine: Result - Labs CBC & Chem 7: 07/23/17 04:15 07/23/17 04:15 Labs: Short CBC 07/23/17 Range/Units 04:15 WBC 7.7 (4.3-11.1) K/mcL Hgb 7.7 L (11.5-15.4) g/dL Hct 25.6 L (35.3-44.9) % Plt Count 299 (140-400) K/mcL BMP 07/23/17 04:15 Sodium 144 Potassium 3.2 L Chloride 106 Carbon Dioxide 31 H BUN 11 Creatinine 0.87 Glucose 134 H Calcium 8.0 L - ABG Interpretation ABG results: ABG ABG pH 7.44 pH Units (7.32-7.45) 07/15/17 19:10 ABG pCO2 48 mmHg (35-45) H 07/15/17 19:10 ABG pO2 73 mmHg (85-104) L 07/15/17 19:10 ABG O2 Saturation 95 % (95-98) 07/15/17 19:10 PT/INR, D-dimer PT 46.8 Seconds (9.4-12.1) H* 07/23/17 09:17 - VTE Documentation of Mechanical Device: Intermittent pneumatic compression device Consult Discharge Plan - Plan Referrals: Barbra Juarez MD [Primary Care Provider] - Prince Wolf MD [Family Provider] -
[2017-07-23] MEDS: Bisacodyl 10 MG RECTAL SUPPOSITORY RC SCH (21:20)
[2017-07-24] MEDS: *HR* LORazepam 2 MG/ML VIAL IVP SCH ×6 (01:08→21:45)
[2017-07-24] MEDS: *HR* HYDROmorphone (PF) 1 MG/ML SYRINGE IVP PRN ×3 (04:00→12:23)
[2017-07-24] MEDS: Piperacillin/Tazobactam 3.375 GM/200 ML BAG IVPB SCH ×3 (04:20→20:30)
[2017-07-24 05:04] LABS: Prothrombin Time 49.4 Seconds (9.4-12.1)
[2017-07-24 05:05] LABS: INR 4.4
[2017-07-24 06:43] LABS: BUN/Creatinine Ratio 11 (6-26); Blood Urea Nitrogen 10 mg/dL (8-23); Calcium 8.1 mg/dL (8.6-10.3); Carbon Dioxide 33 mEq/L (23-29); Chloride 101 mEq/L (98-107); Glucose 123 mg/dL (70-105); Osmolality,Calculated 296 (280-300); Potassium 3.1 mEq/L (3.5-5.1); Sodium 143 mEq/L (136-145); eGFR For African Americans > 60 (> 60); eGFR For Non-African Americans 60 (> 60)
--- NOTE | 2017-07-24 08:15 | Palliative Progress Note ---
<Britta Haider - Last Filed: 07/24/17 08:53> Date of Encounter: 07/24/17 Time of Encounter: 07:40 - Assessment and plan (1) Goals of care, counseling/discussion Current Visit: Yes Status: Acute Assessment and plan: Patient's current code status is DNR-CCA and DNI. Per hospitalist team, the plan is to place a Dobhoff tube to receive medications,etc. Patient was agitated last night and was placed on restraints. Palliative team's recommends 1mg of Ativan PRN every 3 hours for agitation. We also recommend having Dilaudid every 2 hour PRN for pain. Palliative team will continue to follow. - Time Spent With Patient Total time spent is greater than 50% in coordination of care (as documented) at patient's floor/unit and/or counseling patient: less than 15 minutes - Subjective Interval history: Patient seen and examined at bedside this morning. Vitals are within normal limits. No family at the bedside at this time. Per nurse, overnight the patient continued to pull on her nasal canula and restraints orders were placed. Per nurse, the patient verbally stated "I want to " and was agitated all night. Patient was moaning and still communicating words I cannot understand. She is currently in restraints. Per hospitalist note, they plan to place a Dobhoff tube possibly today. - Constitutional Vitals: Abnormal lab results RBC 2.78 M/mcL (3.82-4.97) L 07/23/17 04:15 Hgb 7.7 g/dL (11.5-15.4) L 07/23/17 04:15 Hct 25.6 % (35.3-44.9) L 07/23/17 04:15 MCH 27.7 pg (28.0-33.3) L 07/23/17 04:15 MCHC 30.1 g/dL (31.6-35.5) L 07/23/17 04:15 RDW 16.9 % (11.5-14.5) H 07/23/17 04:15 Nucleated RBCs/100 WBC 0.3 /100 WBC (0) H 07/20/17 06:15 PT 49.4 Seconds (9.4-12.1) H* 07/24/17 03:20 INR 4.4 H* 07/24/17 03:20 APTT 56.0 Seconds (26.0-36.0) H 07/06/17 05:59 ABG pCO2 48 mmHg (35-45) H 07/15/17 19:10 ABG pO2 73 mmHg (85-104) L 07/15/17 19:10 ABG HCO3 33 mEq/L (21-27) H 07/15/17 19:10 ABG Total CO2 34 mEq/L (20-26) H 07/15/17 19:10 ABG Base Excess 7 mEq/L (-2 to 3) H 07/15/17 19:10 Potassium 3.1 mEq/L (3.5-5.1) L 07/24/17 03:20 Carbon Dioxide 33 mEq/L (23-29) H 07/24/17 03:20 Glucose 123 mg/dL (70-105) H 07/24/17 03:20 POC Glucose 164 (58-89) H 07/23/17 16:35 Hemoglobin A1c 7.8 % (-5.6) H 07/08/17 00:55 Calcium 8.1 mg/dL (8.6-10.3) L 07/24/17 03:20 AST 8 Units/L (13-39) L 07/16/17 04:31 Alkaline Phosphatase 32 Units/L (34-104) L 07/16/17 04:31 Serum Total Protein 5.7 g/dL (6.4-8.9) L 07/16/17 04:31 Albumin 2.0 g/dL (3.5-5.7) L 07/16/17 04:31 Globulin 3.7 g/dL (2.4-3.5) H 07/16/17 04:31 Albumin/Globulin Ratio 0.5 (1.1-2.2) L 07/16/17 04:31 Cholesterol 210 mg/dL (< 200) H 07/06/17 05:59 LDL Cholesterol, Calc 145 mg/dL (0-99) H 07/06/17 05:59 HDL Cholesterol 38 mg/dL (40-59) L 07/06/17 05:59 Cholesterol/HDL Ratio 5.5 (0-4.9) H 07/06/17 05:59 Urine Blood Trace (Negative) H 07/15/17 13:20 Ur Leukocyte Esterase Trace (Negative) H 07/15/17 13:20 Urine Microscopic RBC 3-5 per hpf (0-3) H 07/15/17 13:20 Urine Microscopic WBC 3-5 per hpf (0-3) H 07/15/17 13:20 Ur Squamous Epith Cells Moderate per lpf (None-Few) H 07/15/17 13:20 Urine Yeast Few per hpf (None Seen) H 07/15/17 13:20 Ur Culture Indicated? YES (NO) A 07/15/17 13:20 Vancomycin Trough 20.7 mcg/mL (10-20) H* 07/23/17 04:15 Staphylococcus sp PCR DETECTED (Not Detect) A 07/14/17 07:56 Staph aureus (PCR) DETECTED (Not Detect) A 07/14/17 07:56 mecA-Methicil Res Gene DETECTED (Not Detect) A 07/14/17 07:56 General appearance: Absent: febrile, no acute distress Exam: Patient was moaning on my exam and communicating inappropiate words. - Head Head exam: Present: atraumatic - Eye Eye exam: Present: PERRL - Neck Neck exam: Present: normal inspection. Absent: lymphadenopathy, tenderness - Respiratory Respiratory exam: Present: CTAB. Absent: accessory muscle use, chest wall tenderness, rales, respiratory distress, rhonchi, stridor, wheezes - Cardiovascular Cardiovascular exam: Present: RRR, +S1, +S2. Absent: diastolic murmur, gallop, systolic murmur, tachycardia - GI/Abdominal GI/Abdominal exam: Present: soft. Absent: distended, tenderness - Extremities Exam Extremities exam: Present: pedal edema. Absent: calf tenderness, tenderness - Neurological Exam Neurological exam: Present: alert, altered. Absent: oriented X3, facial droop - Skin Skin exam: Present: intact, warm. Absent: petechiae Palliative Quality Palliative Quality: Screen for Code Status: Yes, Screen for Goals of Care: Yes, Screen for Pain: Yes, If Pain Regimen Started, Initiate Bowel Regimen: Yes, Screen for Nausea/Vomitting: Yes Code Status: 07/16/17 14:43 DNR [Resuscitation Status: Active] [RES] Routine Comment: Resuscitation Status: [id number] - Labs CBC & Chem 7: 07/23/17 04:15 07/24/17 03:20 Labs: Laboratory Results - last 24 hr 07/22/17 07/23/17 07/23/17 21:11 07:45 09:17 PT 46.8 H* INR 4.2 Sodium Potassium Chloride Carbon Dioxide BUN Creatinine Est GFR ( Amer) Est GFR (Non-Af Amer) BUN/Creatinine Ratio Glucose POC Glucose 206 H 136 H Calculated Osmolality Calcium 07/23/17 07/23/17 07/24/17 11:53 16:35 03:20 PT 49.4 H* INR 4.4 H* Sodium Potassium Chloride Carbon Dioxide BUN Creatinine Est GFR ( Amer) Est GFR (Non-Af Amer) BUN/Creatinine Ratio Glucose POC Glucose 219 H 164 H Calculated Osmolality Calcium 07/24/17 03:20 PT INR Sodium 143 Potassium 3.1 L Chloride 101 Carbon Dioxide 33 H BUN 10 Creatinine 0.92 Est GFR ( Amer) > 60 Est GFR (Non-Af Amer) 60 BUN/Creatinine Ratio 11 Glucose 123 H POC Glucose Calculated Osmolality 296 Calcium 8.1 L - ABG Interpretation ABG results: ABG ABG pH 7.44 pH Units (7.32-7.45) 07/15/17 19:10 ABG pCO2 48 mmHg (35-45) H 07/15/17 19:10 ABG pO2 73 mmHg (85-104) L 07/15/17 19:10 ABG O2 Saturation 95 % (95-98) 07/15/17 19:10 PT/INR, D-dimer PT 49.4 Seconds (9.4-12.1) H* 07/24/17 03:20 Consult Discharge Plan - Plan Referrals: Barbra Juarez MD [Primary Care Provider] - Prince Wolf MD [Family Provider] - <Ravindra Rodriguez L - Last Filed: 07/24/17 09:19> Date of Encounter: 07/24/17 - Assessment and plan (1) Arthritis Current Visit: Yes Status: Acute (2) Failure to thrive in adult Current Visit: Yes Status: Acute (3) Goals of care, counseling/discussion Current Visit: Yes Status: Acute (4) Altered mental status Current Visit: Yes Status: Acute Qualifiers: Altered mental status type: unspecified Qualified Code(s): R41.82 - Altered mental status, unspecified - Time Spent With Patient Total time spent is greater than 50% in coordination of care (as documented) at patient's floor/unit and/or counseling patient: - Constitutional Vitals: Abnormal lab results RBC 2.78 M/mcL (3.82-4.97) L 07/23/17 04:15 Hgb 7.7 g/dL (11.5-15.4) L 07/23/17 04:15 Hct 25.6 % (35.3-44.9) L 07/23/17 04:15 MCH 27.7 pg (28.0-33.3) L 07/23/17 04:15 MCHC 30.1 g/dL (31.6-35.5) L 07/23/17 04:15 RDW 16.9 % (11.5-14.5) H 07/23/17 04:15 Nucleated RBCs/100 WBC 0.3 /100 WBC (0) H 07/20/17 06:15 PT 49.4 Seconds (9.4-12.1) H* 07/24/17 03:20 INR 4.4 H* 07/24/17 03:20 APTT 56.0 Seconds (26.0-36.0) H 07/06/17 05:59 ABG pCO2 48 mmHg (35-45) H 07/15/17 19:10 ABG pO2 73 mmHg (85-104) L 07/15/17 19:10 ABG HCO3 33 mEq/L (21-27) H 07/15/17 19:10 ABG Total CO2 34 mEq/L (20-26) H 07/15/17 19:10 ABG Base Excess 7 mEq/L (-2 to 3) H 07/15/17 19:10 Potassium 3.1 mEq/L (3.5-5.1) L 07/24/17 03:20 Carbon Dioxide 33 mEq/L (23-29) H 07/24/17 03:20 Glucose 123 mg/dL (70-105) H 07/24/17 03:20 POC Glucose 164 (58-89) H 07/23/17 16:35 Hemoglobin A1c 7.8 % (-5.6) H 07/08/17 00:55 Calcium 8.1 mg/dL (8.6-10.3) L 07/24/17 03:20 AST 8 Units/L (13-39) L 07/16/17 04:31 Alkaline Phosphatase 32 Units/L (34-104) L 07/16/17 04:31 Serum Total Protein 5.7 g/dL (6.4-8.9) L 07/16/17 04:31 Albumin 2.0 g/dL (3.5-5.7) L 07/16/17 04:31 Globulin 3.7 g/dL (2.4-3.5) H 07/16/17 04:31 Albumin/Globulin Ratio 0.5 (1.1-2.2) L 07/16/17 04:31 Cholesterol 210 mg/dL (< 200) H 07/06/17 05:59 LDL Cholesterol, Calc 145 mg/dL (0-99) H 07/06/17 05:59 HDL Cholesterol 38 mg/dL (40-59) L 07/06/17 05:59 Cholesterol/HDL Ratio 5.5 (0-4.9) H 07/06/17 05:59 Urine Blood Trace (Negative) H 07/15/17 13:20 Ur Leukocyte Esterase Trace (Negative) H 07/15/17 13:20 Urine Microscopic RBC 3-5 per hpf (0-3) H 07/15/17 13:20 Urine Microscopic WBC 3-5 per hpf (0-3) H 07/15/17 13:20 Ur Squamous Epith Cells Moderate per lpf (None-Few) H 07/15/17 13:20 Urine Yeast Few per hpf (None Seen) H 07/15/17 13:20 Ur Culture Indicated? YES (NO) A 07/15/17 13:20 Vancomycin Trough 20.7 mcg/mL (10-20) H* 07/23/17 04:15 Staphylococcus sp PCR DETECTED (Not Detect) A 07/14/17 07:56 Staph aureus (PCR) DETECTED (Not Detect) A 07/14/17 07:56 mecA-Methicil Res Gene DETECTED (Not Detect) A 07/14/17 07:56 - Attending Attestation I examined this patient and my medical decision-making was reviewed with the Resident Physician. I agree with the documented findings, disposition and treatment plan as described except to the extent set forth below. Palliative Quality Code Status: 07/16/17 14:43 DNR [Resuscitation Status: Active] [RES] Routine Comment: Resuscitation Status: [id number] - Labs CBC & Chem 7: 07/23/17 04:15 07/24/17 03:20 Labs: Laboratory Results - last 24 hr 07/22/17 07/23/17 07/23/17 21:11 07:45 09:17 PT 46.8 H* INR 4.2 Sodium Potassium Chloride Carbon Dioxide BUN Creatinine Est GFR ( Amer) Est GFR (Non-Af Amer) BUN/Creatinine Ratio Glucose POC Glucose 206 H 136 H Calculated Osmolality Calcium 07/23/17 07/23/17 07/24/17 11:53 16:35 03:20 PT 49.4 H* INR 4.4 H* Sodium Potassium Chloride Carbon Dioxide BUN Creatinine Est GFR ( Amer) Est GFR (Non-Af Amer) BUN/Creatinine Ratio Glucose POC Glucose 219 H 164 H Calculated Osmolality Calcium 07/24/17 03:20 PT INR Sodium 143 Potassium 3.1 L Chloride 101 Carbon Dioxide 33 H BUN 10 Creatinine 0.92 Est GFR ( Amer) > 60 Est GFR (Non-Af Amer) 60 BUN/Creatinine Ratio 11 Glucose 123 H POC Glucose Calculated Osmolality 296 Calcium 8.1 L - ABG Interpretation ABG results: ABG ABG pH 7.44 pH Units (7.32-7.45) 07/15/17 19:10 ABG pCO2 48 mmHg (35-45) H 07/15/17 19:10 ABG pO2 73 mmHg (85-104) L 07/15/17 19:10 ABG O2 Saturation 95 % (95-98) 07/15/17 19:10 PT/INR, D-dimer PT 49.4 Seconds (9.4-12.1) H* 07/24/17 03:20
[2017-07-24] MEDS: Furosemide 40 MG/4 ML VIAL IVP SCH ×2 (08:48→17:26)
[2017-07-24] MEDS: Nitroglycerin 0.4 MG PATCH.TD24 TD SCH (08:55)
[2017-07-24] MEDS: Pantoprazole 40 MG VIAL IVP SCH (08:57)
[2017-07-24] MEDS: Nystatin SUSP 5 ML UD.LIQ PO SCH ×4 (09:00→22:00)
[2017-07-24] MEDS: *HR* Amiodarone 200 MG TABLET PO SCH (09:02)
[2017-07-24] MEDS: Lactobacillus 1 EACH CAP.SPRINK PO SCH (09:02)
[2017-07-24] MEDS: Insulin LISPRO 300 UNITS/3 ML VIAL SQ SCH ×4 (09:03→22:11)
[2017-07-24] MEDS: Silvasorb 44.4 ML TUBE TP SCH (09:17)
--- NOTE | 2017-07-24 11:06 | Infectious Disease Progress No ---
Date of Encounter: 07/24/17 Time of Encounter: 11:04 - Assessment and Plan (1) MRSA bacteremia Current Visit: Yes Status: Acute Causative organism: MRSA. Source not clear. The patient did have a femur MRI that showed moderate volume of fluid in the right greater trochanteric bursa, but no evidence of septic arthritis. Joint aspiration negative for septic arthritis as well. The patient had a CT of the chest, abdomen, and pelvis, as well as a nuclear medicine bone scan. No definitive source of the MRSA bacteremia, but the patient was noted to have significant bilateral pleural effusions. Additionally, review of the bone scan shows increased uptake in the right hip per the hospitalist team's review of the imaging. Radiology recommends WBC scan to further evaluate, but recommend holding off for now as it likely won't change the course of the patient's treatment. Blood cultures drawn 07/08/17 grew MRSA, 2/2 sets. Additional blood cultures drawn 07/09/17 were positive 2/2 sets as well. Repeat blood cultures drawn 07/10/17 x 1 set and 07/12/17 x 1 set are also positive. Additional blood cultures drawn 07/14/17 are positive 1/2 sets. Repeat blood cultures drawn 07/16/17 are negative x 2 sets. Additional blood cultures drawn 07/17/17 are negative x 2 sets. The patient has one major and one minor Modified Lindsay's Criteria. TTE negative for vegetations. No endocarditis stigmata noted on exam. GILBERTO negative. CODY of Vanc is 1. Etiology of persistent bacteremia not clear, but the last positive set of blood cultures were drawn <48 hours after the patient had therapeutic Vanc trough, which could also be contributing to this. Most recent set of blood cultures are negative so far. Continue Vancomycin IV. Pharmacy to dose. Goal trough ~15. Vanc trough 20. Duration of treatment depends on the clinical picture, but likely 6 weeks due to the persistent bacteremia and unclear source. Monitor renal function and for drug toxicity and dose-adjust antibiotics. (2) Altered mental status Current Visit: Yes Status: Acute Likely secondary to acute lacunar infarct and worsened by infectious process and medications. CT head negative, but MRI of the brain showed multiple small infarcts in the bilateral mcdowell radiata and centrum semiovale compatible with bilateral acute lacunar infarcts. Neurology consulted. CT head and brain MRI repeated 07/16/17, but do not show any new findings. Anxiety and pain medication management per the primary team. Continue to monitor closely. Qualifiers: Altered mental status type: unspecified Qualified Code(s): R41.82 - Altered mental status, unspecified (3) Lacunar infarct, acute Current Visit: Yes Status: Acute (4) Lipoma Current Visit: Yes Status: Acute Location: Right thigh. CT scan of the right hip showed a partially visualized fat density mass in the posterior aspect of the proximal right thigh with thin internal septations, most likely representing a lipoma or benign atypical lipomatous tumor. MRI of the right femur again showed findings consistent with lipoma vs. benign atypical lipomatous tumor with significant mass effect the hamstring musculature. 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 Further workup and evaluation per the primary team. (6) Chronic kidney disease (CKD) stage G3a/A3, moderately decreased glomerular filtration rate (GFR) between 45-59 mL/min/1.73 square meter and albuminuria creatinine ratio greater than 300 mg/g Current Visit: Yes Status: Acute Serum creatinine normal at this time. Continue to trend. Dose-adjust antibiotics as needed. Avoid nephrotoxins as able. (7) Chronic pain syndrome Current Visit: Yes Status: Acute Patient has had multiple MRIs and CT scans of the cervical, lumbar, thoracic spine and hips which revealed degenerative arthritis with no acute infectious process. (8) Arthritis Current Visit: Yes Status: Acute (9) Diabetes mellitus type 2 in obese Current Visit: No Status: Chronic Recommend aggressive glucose monitoring and control. Management per the primary team. 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 There was also a moderate volume of fluid in the right greater trochanteric bursa. Ortho consulted and appreciate their recommendations. Status post right hip bursa aspiration. Did not appear to be pus. Gram stain and culture negative. Status post nuclear medicine bone scan that is concerning for increased uptake in the right hip and pelvis per the hospitalist team's review of the films. Radiology recommends WBC scan. Recommend holding off on WBC scan for now as it likely will not change the course of the patient's treatment. Pain management per the primary team. (11) HCAP (healthcare-associated pneumonia) Current Visit: Yes Status: Acute CXR completed 07/08/17 showed findings suspicious for bibasilar atelectasis or PNA. Not sure if the patient truly has PNA or not. Currently on day 7 of Cefepime and received 1 day of Zosyn prior to switching to cefepime. Ct chest showed dense consolidations to the bilateral lower lobes and to the left upper love with complete collapse of the left upper lobe felt most likely related to dependent/compressive atelectasis. CT findings not indicative of PNA, but given the patient's altered mental status , she is at risk for silent aspiration. CXR 07/22/17 showed total opacification of the left hemithorax representing atelectasis of the left lung with a left pleural effusion. Continue Zosyn 3.375 grams IV Q8H (day 9). Duration of treatment depends on the clinical picture, but likely 10 days. (12) Crain catheter in place Current Visit: Yes Status: Acute Crain catheter placed on admission. Urine color and clarity improved since the crain was switched out, but sediment noted again in her urine. Urine output improved, 1000ml in 24 hours yesterday. Renal function normal. (13) Pleural effusion Current Visit: No Status: Acute Likely secondary to third-spacing. CT chest shows bilateral pleural effusions, large on the left and moderate to large on the right. CXR 07/22/17 shows total opacification of the left hemithroax likely respresenting atelectasis secondary to the pleural effusion. Likely contributing to the patient's hypoxic episodes when her O2 comes off. Consider IR to drain. Does not appear infected, but recommend sending fluid for cell count with differential, protein, LDH, glucose, and gram stain with culture. Recommend pulmonary to evaluate. - Subjective Interval history: Patient seen and examined. Overnight events noted. Apparently the patient became agitated and was pulling at O2 and became hypoxic and was restrained by nursing staff. Family upset that this occurred and states they do not want it to happen again. Patient continues to have AMS and cannot give me any ROS information. She has been given pain and anxiety medication and is currently resting quietly. Opens eyes to verbal stimuli from her daughter, but does not follow commands or verbalize. She has been afebrile. The patient has not had anything to eat yet this morning. The family is hesitant to have feeding tube placed due to the patient's agitation and risk at pulling the tube out. No other new issues/concerns at this time. Infect Dis PN-Objective Data - Labs CBC & Chem 7: 07/23/17 04:15 07/24/17 03:20 Labs: Laboratory Results - last 24 hr 07/22/17 07/23/17 07/23/17 21:11 07:45 11:53 PT INR Sodium Potassium Chloride Carbon Dioxide BUN Creatinine Est GFR ( Amer) Est GFR (Non-Af Amer) BUN/Creatinine Ratio Glucose POC Glucose 206 H 136 H 219 H Calculated Osmolality Calcium Vancomycin Trough 07/23/17 07/24/17 07/24/17 16:35 03:20 03:20 PT 49.4 H* INR 4.4 H* Sodium 143 Potassium 3.1 L Chloride 101 Carbon Dioxide 33 H BUN 10 Creatinine 0.92 Est GFR ( Amer) > 60 Est GFR (Non-Af Amer) 60 BUN/Creatinine Ratio 11 Glucose 123 H POC Glucose 164 H Calculated Osmolality 296 Calcium 8.1 L Vancomycin Trough 07/24/17 09:37 PT INR Sodium Potassium Chloride Carbon Dioxide BUN Creatinine Est GFR ( Amer) Est GFR (Non-Af Amer) BUN/Creatinine Ratio Glucose POC Glucose Calculated Osmolality Calcium Vancomycin Trough 21.6 H* Cultures: Cultures 07/18/17 04:05 Blood Culture - Final Peripheral Venipuncture No growth. 07/18/17 04:00 Blood Culture - Final Peripheral Venipuncture No growth. 07/22/17 17:05 Urine Culture - Final Urine,Crain Port No growth. 07/17/17 10:03 Blood Culture - Final Peripheral Venipuncture No growth. 07/15/17 13:20 Urine Culture - Final Urine,Crain Port Adelina glabrata 07/16/17 13:51 Blood Culture - Final Peripheral Venipuncture No growth. 07/16/17 13:51 Blood Culture - Final Peripheral Venipuncture No growth. 07/14/17 17:59 Blood Culture - Final Peripheral Venipuncture No growth. 07/14/17 07:56 Blood Culture - Final Peripheral Venipuncture Methicillin Resistant S.aureus 07/15/17 11:27 Gram Stain - Final Left Hip 07/12/17 03:55 Blood Culture - Final Peripheral Venipuncture Methicillin Resistant S.aureus 07/10/17 14:13 Blood Culture - Final Peripheral Venipuncture Methicillin Resistant S.aureus 07/09/17 14:15 Blood Culture - Final Peripheral Venipuncture Methicillin Resistant S.aureus 07/09/17 14:15 Blood Culture - Final Peripheral Venipuncture Methicillin Resistant S.aureus 07/08/17 00:55 Blood Culture - Final Peripheral Venipuncture Methicillin Resistant S.aureus 07/08/17 00:55 Blood Culture - Final Peripheral Venipuncture Methicillin Resistant S.aureus 07/08/17 08:10 Legionella Antigen - Final Urine,Clean Catch 07/08/17 08:10 Streptococcus pneumoniae Antigen (M - Final Urine,Clean Catch Serology 07/17/17 07/15/17 07/14/17 Range/Units 09:15 13:20 07:56 Urine Color Yellow (Yellow) Urine Clarity Clear (Clear) Urine pH 6.0 (5.0-8.0) pH Units Ur Specific [place] 1.011 (1.010-1.025) Urine Protein Negative (Neg-Trace) mg/dL Urine Glucose (UA) Normal (Normal) mg/dL Urine Ketones Negative (Negative) mg/dL Urine Blood Trace H (Negative) Urine Nitrite Negative (Negative) Urine Bilirubin Negative (Negative) Urine Urobilinogen Normal (Normal) mg/dL Ur Leukocyte Esterase Trace H (Negative) Urine Microscopic RBC 3-5 H (0-3) per hpf Urine Microscopic WBC 3-5 H (0-3) per hpf Ur Squamous Epith Cells Moderate H (None-Few) per lpf Urine Bacteria None Seen (None-Few) per hpf Hyaline Casts None Seen (None-Few) per lpf Urine Yeast Few H (None Seen) per hpf Ur Culture Indicated? YES A (NO) A. baumannii (PCR) Not Detected (Not Detect) Chlamy pneumoniae PCR Not Detected (Not Detect) Adenovirus (PCR) Not Detected (Not Detect) B. pertussis DNA (PCR) Not Detected (Not Detect) B.parapertussis DNA PCR Not Detected (Not Detect) Adelina albicans (PCR) Not Detected (Not Detect) C. glabrata (PCR) Not Detected (Not Detect) C. krusei (PCR) Not Detected (Not Detect) C. parapsilosis (PCR) Not Detected (Not Detect) C. tropicalis (PCR) Not Detected (Not Detect) Coronavirus OC43 (PCR) Not Detected (Not Detect) Coronavirus HKU1 (PCR) Not Detected (Not Detect) Coronavirus 229E (PCR) Not Detected (Not Detect) Coronavirus NL63 (PCR) Not Detected (Not Detect) Enterobacteriac sp PCR Not Detected (Not Detect) E. cloacae complex PCR Not Detected (Not Detect) Enterococcus sp PCR Not Detected (Not Detect) E. coli (PCR) Not Detected (Not Detect) H. influenzae (PCR) Not Detected (Not Detect) Human Metapneumovir PCR Not Detected (Not Detect) Influenza A (H1) PCR Not Detected (Not Detect) Influ A (H1N1/09) PCR Not Detected (Not Detect) Influenza A (H3) PCR Not Detected (Not Detect) Influenza A Untype (PCR) Not Detected (Not Detect) Influenza Type B (PCR) Not Detected (Not Detect) Klebsiella oxytoca PCR Not Detected (Not Detect) Klebsiella pneumoniae Not Detected (Not Detect) List. monocytogenes PCR Not Detected (Not Detect) M.pneumoniae DNA (PCR) Not Detected (Not Detect) N. meningitidis (PCR) Not Detected (Not Detect) Parainfluenza 1 (PCR) Not Detected (Not Detect) Parainfluenza 2 (PCR) Not Detected (Not Detect) Parainfluenza 3 (PCR) Not Detected (Not Detect) Parainfluenza 4 (PCR) Not Detected (Not Detect) Proteus species (PCR) Not Detected (Not Detect) RSV (PCR) Not Detected (Not Detect) Entero/Rhino (PCR) Not Detected (Not Detect) Serratia marcescens PCR Not Detected (Not Detect) Staphylococcus sp PCR DETECTED A (Not Detect) Staph aureus (PCR) DETECTED A (Not Detect) mecA-Methicil Res Gene DETECTED A (Not Detect) Streptococcus sp PCR Not Detected (Not Detect) Group A Strep DNA Not Detected (Not Detect) Group B Strep (PCR) Not Detected (Not Detect) Strep pneumoniae (PCR) Not Detected (Not Detect) P. aeruginosa (PCR) Not Detected (Not Detect) Alexa/B-Vanco Res Genes Not Detected (Not Detect) KPC (blaKPC) Detect PCR Not Detected (Not Detect) 07/09/17 07/09/17 07/08/17 Range/Units 14:15 14:15 08:10 Urine Color Dark Yellow (Yellow) Urine Clarity Cloudy A (Clear) Urine pH 6.0 (5.0-8.0) pH Units Ur Specific [place] > 1.030 H (1.010-1.025) Urine Protein 100 H (Neg-Trace) mg/dL Urine Glucose (UA) Normal (Normal) mg/dL Urine Ketones Negative (Negative) mg/dL Urine Blood Trace H (Negative) Urine Nitrite Negative (Negative) Urine Bilirubin Small H (Negative) Urine Urobilinogen Normal (Normal) mg/dL Ur Leukocyte Esterase Negative (Negative) Urine Microscopic RBC 5-15 H (0-3) per hpf Urine Microscopic WBC 30-50 H (0-3) per hpf Ur Squamous Epith Cells Moderate H (None-Few) per lpf Urine Bacteria Few (None-Few) per hpf Hyaline Casts Few (None-Few) per lpf Urine Yeast Moderate H (None Seen) per hpf Ur Culture Indicated? NO (NO) A. baumannii (PCR) Not Detected Not Detected (Not Detect) Chlamy pneumoniae PCR (Not Detect) Adenovirus (PCR) (Not Detect) B. pertussis DNA (PCR) (Not Detect) B.parapertussis DNA PCR (Not Detect) Adelina albicans (PCR) Not Detected Not Detected (Not Detect) C. glabrata (PCR) Not Detected Not Detected (Not Detect) C. krusei (PCR) Not Detected Not Detected (Not Detect) C. parapsilosis (PCR) Not Detected Not Detected (Not Detect) C. tropicalis (PCR) Not Detected Not Detected (Not Detect) Coronavirus OC43 (PCR) (Not Detect) Coronavirus HKU1 (PCR) (Not Detect) Coronavirus 229E (PCR) (Not Detect) Coronavirus NL63 (PCR) (Not Detect) Enterobacteriac sp PCR Not Detected Not Detected (Not Detect) E. cloacae complex PCR Not Detected Not Detected (Not Detect) Enterococcus sp PCR Not Detected Not Detected (Not Detect) E. coli (PCR) Not Detected Not Detected (Not Detect) H. influenzae (PCR) Not Detected Not Detected (Not Detect) Human Metapneumovir PCR (Not Detect) Influenza A (H1) PCR (Not Detect) Influ A (H1N1/09) PCR (Not Detect) Influenza A (H3) PCR (Not Detect) Influenza A Untype (PCR) (Not Detect) Influenza Type B (PCR) (Not Detect) Klebsiella oxytoca PCR Not Detected Not Detected (Not Detect) Klebsiella pneumoniae Not Detected Not Detected (Not Detect) List. monocytogenes PCR Not Detected Not Detected (Not Detect) M.pneumoniae DNA (PCR) (Not Detect) N. meningitidis (PCR) Not Detected Not Detected (Not Detect) Parainfluenza 1 (PCR) (Not Detect) Parainfluenza 2 (PCR) (Not Detect) Parainfluenza 3 (PCR) (Not Detect) Parainfluenza 4 (PCR) (Not Detect) Proteus species (PCR) Not Detected Not Detected (Not Detect) RSV (PCR) (Not Detect) Entero/Rhino (PCR) (Not Detect) Serratia marcescens PCR Not Detected Not Detected (Not Detect) Staphylococcus sp PCR DETECTED A DETECTED A (Not Detect) Staph aureus (PCR) DETECTED A DETECTED A (Not Detect) mecA-Methicil Res Gene DETECTED A DETECTED A (Not Detect) Streptococcus sp PCR Not Detected Not Detected (Not Detect) Group A Strep DNA Not Detected Not Detected (Not Detect) Group B Strep (PCR) Not Detected Not Detected (Not Detect) Strep pneumoniae (PCR) Not Detected Not Detected (Not Detect) P. aeruginosa (PCR) Not Detected Not Detected (Not Detect) Alexa/B-Vanco Res Genes Not Detected N/A (Not Detect) KPC (blaKPC) Detect PCR Not Detected N/A (Not Detect) 07/08/17 Range/Units 00:55 Urine Color (Yellow) Urine Clarity (Clear) Urine pH (5.0-8.0) pH Units Ur Specific [place] (1.010-1.025) Urine Protein (Neg-Trace) mg/dL Urine Glucose (UA) (Normal) mg/dL Urine Ketones (Negative) mg/dL Urine Blood (Negative) Urine Nitrite (Negative) Urine Bilirubin (Negative) Urine Urobilinogen (Normal) mg/dL Ur Leukocyte Esterase (Negative) Urine Microscopic RBC (0-3) per hpf Urine Microscopic WBC (0-3) per hpf Ur Squamous Epith Cells (None-Few) per lpf Urine Bacteria (None-Few) per hpf Hyaline Casts (None-Few) per lpf Urine Yeast (None Seen) per hpf Ur Culture Indicated? (NO) A. baumannii (PCR) Not Detected (Not Detect) Chlamy pneumoniae PCR (Not Detect) Adenovirus (PCR) (Not Detect) B. pertussis DNA (PCR) (Not Detect) B.parapertussis DNA PCR (Not Detect) Adelina albicans (PCR) Not Detected (Not Detect) C. glabrata (PCR) Not Detected (Not Detect) C. krusei (PCR) Not Detected (Not Detect) C. parapsilosis (PCR) Not Detected (Not Detect) C. tropicalis (PCR) Not Detected (Not Detect) Coronavirus OC43 (PCR) (Not Detect) Coronavirus HKU1 (PCR) (Not Detect) Coronavirus 229E (PCR) (Not Detect) Coronavirus NL63 (PCR) (Not Detect) Enterobacteriac sp PCR Not Detected (Not Detect) E. cloacae complex PCR Not Detected (Not Detect) Enterococcus sp PCR Not Detected (Not Detect) E. coli (PCR) Not Detected (Not Detect) H. influenzae (PCR) Not Detected (Not Detect) Human Metapneumovir PCR (Not Detect) Influenza A (H1) PCR (Not Detect) Influ A (H1N1/09) PCR (Not Detect) Influenza A (H3) PCR (Not Detect) Influenza A Untype (PCR) (Not Detect) Influenza Type B (PCR) (Not Detect) Klebsiella oxytoca PCR Not Detected (Not Detect) Klebsiella pneumoniae Not Detected (Not Detect) List. monocytogenes PCR Not Detected (Not Detect) M.pneumoniae DNA (PCR) (Not Detect) N. meningitidis (PCR) Not Detected (Not Detect) Parainfluenza 1 (PCR) (Not Detect) Parainfluenza 2 (PCR) (Not Detect) Parainfluenza 3 (PCR) (Not Detect) Parainfluenza 4 (PCR) (Not Detect) Proteus species (PCR) Not Detected (Not Detect) RSV (PCR) (Not Detect) Entero/Rhino (PCR) (Not Detect) Serratia marcescens PCR Not Detected (Not Detect) Staphylococcus sp PCR DETECTED A (Not Detect) Staph aureus (PCR) DETECTED A (Not Detect) mecA-Methicil Res Gene DETECTED A (Not Detect) Streptococcus sp PCR Not Detected (Not Detect) Group A Strep DNA Not Detected (Not Detect) Group B Strep (PCR) Not Detected (Not Detect) Strep pneumoniae (PCR) Not Detected (Not Detect) P. aeruginosa (PCR) Not Detected (Not Detect) Alexa/B-Vanco Res Genes Not Detected (Not Detect) KPC (blaKPC) Detect PCR Not Detected (Not Detect) Exam - Constitutional Vitals: Temp Pulse Resp BP Pulse Ox 98.8 F 79 15 135/77 97 07/24/17 09:29 07/24/17 09:29 07/24/17 09:29 07/24/17 09:29 07/24/17 09:29 General appearance: cooperative, no acute distress, obese - Head Head exam: Present: atraumatic, normal inspection, normocephalic - Eye Eye exam: Present: normal appearance, PERRL Pupils: Present: normal accommodation - ENT ENT exam: Present: mucous membranes dry - Neck Neck exam: Present: normal inspection - Respiratory Respiratory exam: Present: decreased breath sounds (Left base), CTAB. Absent: rales, respiratory distress, rhonchi, wheezes - Cardiovascular Cardiovascular exam: Present: RRR, +S1, +S2 - GI/Abdominal GI/Abdominal exam: Present: distended (obese), normal bowel sounds, soft Additional comments: Crain catheter noted to be draining clear yellow urine. - Extremities Exam Extremities exam: Present: pedal edema (1+ BLE) Additional comments: Full MSK not completed at the request of the family due to it causing pain. - Neurological Exam Neurological exam: Present: altered (Drowsy, opens eyes to daughter's voice. Does not follow commands.) - Skin Skin exam: Present: dry, intact, normal color, warm - VTE Documentation of Mechanical Device: Intermittent pneumatic compression device Consult Discharge Plan - Plan Referrals: Barbra Juarez MD [Primary Care Provider] - Prince Wolf MD [Family Provider] - - Attending Attestation I examined this patient and my medical decision-making was reviewed with the Resident Physician. I agree with the documented findings, disposition and treatment plan as described except to the extent set forth below.
--- NOTE | 2017-07-24 11:17 | Internal Med Progress Note ---
<Jimmy Ryan - Last Filed: 07/24/17 14:34> Date of Encounter: 07/24/17 Time of Encounter: 10:15 - Assessment and plan (1) MRSA bacteremia Current Visit: Yes Status: Acute Assessment and plan: - Persistent MRSA bacteremia. -Positive blood cultures on 07/09, 07/10, 07/12, 07/14 for MRSA - Blood cultures drawn on 07/16 and 07/17 and 07/18 no growth final. - Has been on vancomycin with goal trough of 15-20, day 15. Will likely require up to 6 weeks of abx. ID on board. PICC line placed - No obvious source identified. 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 - AFebrile overnight, vitals unremarkable. No white count - CT scan results 07/18/17 showing bilateral pleural effusions, interlobular septal thickening of lungs with ground glass opacities, mild ascites, high attenuation material within the gallbladder with mild distention, colonic diverticulosis without diverticulitis. -Bone scan revealed degenerative uptake of right hip possibly degenerative in nature versus infectious. Plan - Continue vancomycin for a total of 6 weeks, per ID - Continue Zosyn coverage for possible aspiration pneumonia - Palliative consulted, code status changed to [id number] - Contact precautions. - infection appears to be clearing, mental status minimally improved. Pt not taking adequate oral nutrition (2) Acute cerebral infarction Current Visit: Yes Status: Acute Assessment and plan: - Acute right thalamic lacunar infarct as seen on brain MRI on 07/08/17 for right leg weakness - Scattered bilateral small infarcts suggestive of emboli of cardiac or septic etiology. - Neurology following appreciate recommendations. - Left carotid stenosis of 60-79%. - Per daughter, pt is not at baseline mental status. May also be attributable to infection vs metabolic etiologies. - Repeat Brain MRI on 07/16/17 showed no acute changes from previous. - Clinically may be mildly improved with less moaning and more eye contact. Plan - Continue statin, aspirin - Pt/OT when able. - Infectious disease following. Neuro has evaluated - Management of AMS and determine if alternative etiologies are contributing - Not a candidate for aggressive measures at this time due to other medical conditions and severity of other acute conditions. - Dobhoff feeding tube to be placed this morning to attempt nutrition. (3) Supratherapeutic INR Current Visit: Yes Status: Acute Assessment and plan: - INR of 8.7 on admission. - Most recently 4.4 this AM Plan - Pharmacy to dose coumadin. History of CVA, goal of INR of 2-3 - Continue to monitor for signs of bleed. (4) Stage II pressure ulcer of buttock Current Visit: Yes Status: Acute Assessment and plan: per nursing. consult wound care. - Possible source of bacteremia. - Dressing changes. - Frequent bed turns. Qualifiers: Laterality: left Qualified Code(s): L89.322 - Pressure ulcer of left buttock, stage 2 (5) Altered mental status Current Visit: Yes Status: Acute Assessment and plan: - Etiology unclear at this time, likely multifactorial - Pain from femoral nerve compression vs acute cerebral infarct vs infectious vs pain vs possible psychological etiology - May be mildly improving. Unsure new baseline. Discussion with family regarding future goals of care. - Patient has not been taking in nutrition. Discussion with palliative care for placement of feeding tube. Plan - Treat underlying infection. Currently on Zosyn and vancomycin - Pain control - Possible new baseline, consulted palliative care - Continue mirtazipine tonight. Start seroqeul if able to take PO meds. -Discussion with family regarding goals of care yesterday. \Dobhoff placed this morning. We will reassess for improvement with nutrition as well as returning PO meds. Qualifiers: Altered mental status type: unspecified Qualified Code(s): R41.82 - Altered mental status, unspecified (6) Lipoma Current Visit: Yes Status: Acute Assessment and plan: - MRI of the right femur showed a large 21.3 x 9.8 x 7.7 cm fat signal mass. Not exactly sure this is the cause of her issues. - Surgery consulted, no intervention for now per surgery service due to her other more acute medical issues. Plan - Unlikely surgical candidate - LIkely causing significant pain - Will monitor for now Qualifiers: Lipoma location: lower extremity Laterality: right Qualified Code(s): D17.23 - Benign lipomatous neoplasm of skin and subcutaneous tissue of right leg (7) Lumbar spinal stenosis Current Visit: Yes Status: Chronic Assessment and plan: Per CT scans. Has been seen by neurology. - No acute interventions while inpatient. - Pain control Qualifiers: Neurogenic claudication status: unspecified Qualified Code(s): M48.061 - Spinal stenosis, lumbar region without neurogenic claudication (8) Chronic kidney disease (CKD) stage G3a/A3, moderately decreased glomerular filtration rate (GFR) between 45-59 mL/min/1.73 square meter and albuminuria creatinine ratio greater than 300 mg/g Current Visit: Yes Status: Acute Assessment and plan: - Stage III per chart review. - BUN/Cr of 10/0.92 this AM - Calculated Creatinine clearance of 93 - Appears to be at baseline Plan - Monitor for fluid status - Avoid nephrotoxic agents - Continue vancomycin as benefit outweighs risk. Monitor and renally dose per pharmacy with goal trough of 15-20. (9) Anemia Current Visit: Yes Status: Acute Assessment and plan: - H/H of 7.7/25.6this AM. Hgb of 7.7 yesterday. Has been stable - Likely a result of chronic disease, CKD III. Baseline 8-9 - Received 2 units during this admisssion - Unable to determine if symptomatic but has remained stable for past couple days Plan - Continue to monitor daily CBC - Transfuse as necessary Qualifiers: Anemia type: unspecified type Qualified Code(s): D64.9 - Anemia, unspecified (10) HCAP (healthcare-associated pneumonia) Current Visit: Yes Status: Acute Assessment and plan: - Concern for HCAP on CXR showing bilateral opacities - Aspiration coverage due to AMS - aFebrile, no WBC. - Sputum cultures negative. Blood cultures as above. Strep and legionella negative. Plan - Continue vancomycin day 16, zosyn day 9. - Received 7 days of cefepime - Tylenol PRN fever. (11) Hypokalemia Current Visit: Yes Status: Acute Assessment and plan: Potassium of 3.1 this morning, 3.4 yesterday -Will replenish with 40 mEq of potassium PRN hypokalemia. - Continue to monitor. Code(s): E87.6 - Hypokalemia (12) DVT prophylaxis Current Visit: Yes Status: Acute Assessment and plan: Coumadin. Pharmacy to dose. - Time Spent With Patient Greater than 35 minutes - Subjective Interval history: Patient was seen and examined at bedside this morning. Patient was fast asleep this morning during interview. Family is present at bedside who are upset that she was placed in restraints last night due to agitation and pulling off her oxygen. She was given Ativan and dilaudid after which she fell asleep. Extended discussion with family today and they are agreeable to have dobhoff placed this morning and we agreed that if the patient pulls it out then we would leave it out. - Constitutional Vitals: Temp Pulse Resp BP Pulse Ox 98.8 F 79 15 135/77 97 07/24/17 09:29 07/24/17 09:29 07/24/17 09:29 07/24/17 09:29 07/24/17 09:29 General appearance: Present: A&O X 0, obese Exam: Gen.: Vitals noted. No acute distress. AAOx0, patient is fast asleep. HEENT: PERRL/EOMI, oropharynx clear, Normocephalic, atraumatic, MMM Cardiac: Irregular, no murmur, +S1/S2 Pulmonary: Diminished breath sounds bilaterally. Some rales. Shallow breathing. equal chest expansion Abdomen: soft, nontender, hypoactive BS noted, no guarding Extremities: no BLE edema, nontender calf, no cyanosis or clubbing Neuro: A&Ox0, moves all extremities, no focal deficits Psych: Appropriate mood and behavior Internal Medicine: Result - Labs CBC & Chem 7: 07/23/17 04:15 07/24/17 03:20 Labs: BMP 07/24/17 03:20 Sodium 143 Potassium 3.1 L Chloride 101 Carbon Dioxide 33 H BUN 10 Creatinine 0.92 Glucose 123 H Calcium 8.1 L - ABG Interpretation ABG results: ABG ABG pH 7.44 pH Units (7.32-7.45) 07/15/17 19:10 ABG pCO2 48 mmHg (35-45) H 07/15/17 19:10 ABG pO2 73 mmHg (85-104) L 07/15/17 19:10 ABG O2 Saturation 95 % (95-98) 07/15/17 19:10 PT/INR, D-dimer PT 49.4 Seconds (9.4-12.1) H* 07/24/17 03:20 - VTE Documentation of Mechanical Device: Intermittent pneumatic compression device Consult Discharge Plan - Plan Referrals: Barbra Juarez MD [Primary Care Provider] - Prince Wolf MD [Family Provider] - <Jc Thompson A - Last Filed: 07/24/17 17:24> Date of Encounter: 07/24/17 - Assessment and plan (1) Acute respiratory failure with hypoxia Current Visit: Yes Status: Acute (2) Pleural effusion Current Visit: Yes Status: Acute (3) Acute metabolic encephalopathy Current Visit: Yes Status: Acute (4) MRSA (methicillin resistant Staphylococcus aureus) infection Current Visit: Yes Status: Acute (5) MRSA bacteremia Current Visit: Yes Status: Acute (6) Cerebrovascular accident (CVA) due to bilateral embolism of anterior cerebral arteries Current Visit: Yes Status: Acute (7) Chronic kidney disease (CKD) stage G3a/A3, moderately decreased glomerular filtration rate (GFR) between 45-59 mL/min/1.73 square meter and albuminuria creatinine ratio greater than 300 mg/g Current Visit: Yes Status: Acute (8) CHF (congestive heart failure) Current Visit: Yes Status: Chronic Qualifiers: Congestive heart failure type: systolic Congestive heart failure chronicity : acute on chronic Qualified Code(s): I50.23 - Acute on chronic systolic ( congestive) heart failure (9) COPD (chronic obstructive pulmonary disease) Current Visit: Yes Status: Chronic Qualifiers: COPD type: unspecified COPD Qualified Code(s): J44.9 - Chronic obstructive pulmonary disease, unspecified (10) Afib Current Visit: No Status: Chronic Qualifiers: Atrial fibrillation type: paroxysmal Qualified Code(s): I48.0 - Paroxysmal atrial fibrillation (11) CAD (coronary artery disease) Current Visit: No Status: Chronic Qualifiers: Coronary Disease-Associated Artery/Lesion type: [place] artery [place] vs. transplanted heart: [place] heart Associated angina: without angina Qualified Code(s): I25.10 - Atherosclerotic heart disease of [place] coronary artery without angina pectoris - Constitutional Vitals: Temp Pulse Resp BP Pulse Ox 98.6 F 69 14 116/69 97 07/24/17 16:30 07/24/17 16:30 07/24/17 16:30 07/24/17 16:30 07/24/17 16:30 Internal Medicine: Result - Labs CBC & Chem 7: 07/23/17 04:15 07/24/17 03:20 Labs: BMP 07/24/17 03:20 Sodium 143 Potassium 3.1 L Chloride 101 Carbon Dioxide 33 H BUN 10 Creatinine 0.92 Glucose 123 H Calcium 8.1 L - ABG Interpretation ABG results: ABG ABG pH 7.44 pH Units (7.32-7.45) 07/15/17 19:10 ABG pCO2 48 mmHg (35-45) H 07/15/17 19:10 ABG pO2 73 mmHg (85-104) L 07/15/17 19:10 ABG O2 Saturation 95 % (95-98) 07/15/17 19:10 PT/INR, D-dimer PT 49.4 Seconds (9.4-12.1) H* 07/24/17 03:20 - Impressions Impressions KUB X-Ray 07/24/17 11:12 IMPRESSION: Feeding tube in place with tip in the region of the gastric antrum D/ / Thom Teixeira MD / Thom Teixeira MD Interpreting Provider: Thom Teixeira MD - Attending Attestation I examined this patient and my medical decision-making was reviewed with the Resident Physician on 07/24/17. I agree with the documented findings, disposition and treatment plan as described except to the extent set forth below. Ms New is currently admitted for MRSA bacteremia and encephalopathy. She remains moderate to high risk due to potential for worsening clincal status. Ms New was restrained last evening. Due to this and concern that it will happen with Dobhoff, initially Dobhoff not placed. Shortly after it was agreed and dobhoff was placed and tube feeds started. Oral meds to be given as well. Exam Restless and uncomfortable Mucus membranes dry Not tachycardic No wheeze I/P 1. MRSA bacteremia 2. Dobhoff for tube feeds. Further diagnoses and plan as above
[2017-07-24] MEDS: Vancomycin 1,250 MG in D5% in Water 250 ML IVPB SCH (11:33)
[2017-07-24] MEDS: Morphine Oral CONC 5 MG/0.25 ML ORAL.SYG GTUBE PRN ×3 (16:35→21:56)
[2017-07-24] MEDS ORDERED: Morphine Oral CONC 5 MG/0.25 ML ORAL.SYG SL ONE (17:05)
[2017-07-24] MEDS: *HR* Amiodarone 200 MG TABLET GTUBE SCH (17:26)
[2017-07-24] MEDS ORDERED: *HR* HYDROmorphone (PF) 1 MG/ML SYRINGE IVP PRN (19:57)
[2017-07-24] MEDS ORDERED: Haloperidol Lactate 5 MG/ML VIAL ONE (20:09)
[2017-07-24] MEDS: Bisacodyl 10 MG RECTAL SUPPOSITORY RC SCH (22:09)
[2017-07-25] MEDS: Morphine Oral CONC 5 MG/0.25 ML ORAL.SYG GTUBE PRN ×5 (01:05→17:21)
[2017-07-25] MEDS: *HR* LORazepam 2 MG/ML VIAL IVP SCH ×6 (01:06→23:05)
[2017-07-25] MEDS: Piperacillin/Tazobactam 3.375 GM/200 ML BAG IVPB SCH ×2 (05:01→12:31)
[2017-07-25 06:01] LABS: Hematocrit 25.9 % (35.3-44.9); Mean Corpuscular HGB Conc 29.7 g/dL (31.6-35.5); Mean Corpuscular Hemoglobin 27.3 pg (28.0-33.3); Mean Corpuscular Volume 91.8 fL (83.0-100.0); Mean Platelet Volume 9.1 fL (9.4-12.4); Platelet Count 221 K/mcL (140-400); Red Blood Count 2.82 M/mcL (3.82-4.97); Red Cell Distribution Width 17.1 % (11.5-14.5)
[2017-07-25 06:06] LABS: Hemoglobin 7.7 g/dL (11.5-15.4)
[2017-07-25 06:20] LABS: INR 5.1; Prothrombin Time 56.9 Seconds (9.4-12.1)
[2017-07-25 06:30] LABS: BUN/Creatinine Ratio 11 (6-26); Blood Urea Nitrogen 10 mg/dL (8-23); Calcium 7.7 mg/dL (8.6-10.3); Carbon Dioxide 38 mEq/L (23-29); Chloride 99 mEq/L (98-107); Glucose 138 mg/dL (70-105); Osmolality,Calculated 293 (280-300); Potassium 2.8 mEq/L (3.5-5.1); Sodium 141 mEq/L (136-145); eGFR For African Americans > 60 (> 60); eGFR For Non-African Americans > 60 (> 60)
[2017-07-25] MEDS ORDERED: Potassium Chloride 40 MEQ, Lidocaine 1% 2 ML in D5% in Water 500 ML IVPB ONE ×2 (08:25→15:07)
[2017-07-25] MEDS: Insulin LISPRO 300 UNITS/3 ML VIAL SQ SCH ×4 (08:52→23:10)
[2017-07-25] MEDS: *HR* Amiodarone 200 MG TABLET GTUBE SCH (08:52)
[2017-07-25] MEDS: Lactobacillus 1 EACH CAP.SPRINK PO SCH (08:52)
[2017-07-25] MEDS: Pantoprazole 40 MG VIAL IVP SCH (08:52)
[2017-07-25] MEDS: Furosemide 40 MG/4 ML VIAL IVP SCH ×2 (08:52→17:20)
[2017-07-25] MEDS: Nystatin SUSP 5 ML UD.LIQ PO SCH ×4 (08:52→23:08)
[2017-07-25] MEDS: Nitroglycerin 0.4 MG PATCH.TD24 TD SCH (08:52)
[2017-07-25] MEDS ORDERED: *HR* LORazepam Oral Conc 2 MG/ML SL PRN (09:32)
--- NOTE | 2017-07-25 09:40 | Palliative Progress Note ---
Date of Encounter: 07/25/17 Time of Encounter: 07:30 - Assessment and plan (1) Arthritis Current Visit: Yes Status: Acute Assessment and plan: Cultures are negative at this time. Plan per infectious diseases 6 weeks of IV antibiotics. (I am not sure if this is 6 weeks additional, or just 6 weeks total. Cultures are just now fully clear. May be 6 more weeks, please see their note.) (2) Failure to thrive in adult Current Visit: Yes Status: Acute Assessment and plan: She is tolerating the NG tube very well at this time. We have that a PEG tube could be considered a short-term bridge, have discussed this with family. Think at this time they are leaning against a PEG tube however if a PEG tube or used I would advocate it only as a time trial. (3) Goals of care, counseling/discussion Current Visit: Yes Status: Acute Assessment and plan: DNR/DNI. Patient will be getting long-term antibiotics for several more weeks at the very least, up to 6 weeks more possible. The patient is tolerating feeds at this time. A PEG tube may be considered for a time trial. In that the patient may require up to 6 more weeks of antibiotics and during that time might need nutritional support. I discussed this with the family they are considering the options. (4) Altered mental status Current Visit: Yes Status: Acute Assessment and plan: This is undoubtedly multifactorial. She has required medications to calm down the situation. May be primarily pain related with regard to her hip however Ativan at a low dose may not be unreasonable in addition to the when necessary' s. Have discussed this with the area and also recommend patient have humidified oxygen. No Changes today. Qualifiers: Altered mental status type: unspecified Qualified Code(s): R41.82 - Altered mental status, unspecified - Time Spent With Patient Total time spent is greater than 50% in coordination of care (as documented) at patient's floor/unit and/or counseling patient: - Subjective Interval history: Events of last night noted. Patient was started on will/G-tube medication for pain last night. At this time the patient is resting very comfortably Ammann have discussed with family and gone over in depth and detail with daughter reasoning for changing the medications in an effort to try to make it so the patient has a possibility of getting out of the hospital. - Constitutional Vitals: Abnormal lab results RBC 2.82 M/mcL (3.82-4.97) L 07/25/17 05:45 Hgb 7.7 g/dL (11.5-15.4) L 07/25/17 05:45 Hct 25.9 % (35.3-44.9) L 07/25/17 05:45 MCH 27.3 pg (28.0-33.3) L 07/25/17 05:45 MCHC 29.7 g/dL (31.6-35.5) L 07/25/17 05:45 RDW 17.1 % (11.5-14.5) H 07/25/17 05:45 MPV 9.1 fL (9.4-12.4) L 07/25/17 05:45 Nucleated RBCs/100 WBC 0.3 /100 WBC (0) H 07/20/17 06:15 PT 56.9 Seconds (9.4-12.1) H* 07/25/17 05:45 INR 5.1 H* 07/25/17 05:45 APTT 56.0 Seconds (26.0-36.0) H 07/06/17 05:59 ABG pCO2 48 mmHg (35-45) H 07/15/17 19:10 ABG pO2 73 mmHg (85-104) L 07/15/17 19:10 ABG HCO3 33 mEq/L (21-27) H 07/15/17 19:10 ABG Total CO2 34 mEq/L (20-26) H 07/15/17 19:10 ABG Base Excess 7 mEq/L (-2 to 3) H 07/15/17 19:10 Potassium 2.8 mEq/L (3.5-5.1) L 07/25/17 05:45 Carbon Dioxide 38 mEq/L (23-29) H 07/25/17 05:45 Glucose 138 mg/dL (70-105) H 07/25/17 05:45 POC Glucose 121 (58-89) H 07/24/17 16:43 Hemoglobin A1c 7.8 % (-5.6) H 07/08/17 00:55 Calcium 7.7 mg/dL (8.6-10.3) L 07/25/17 05:45 AST 8 Units/L (13-39) L 07/16/17 04:31 Alkaline Phosphatase 32 Units/L (34-104) L 07/16/17 04:31 Serum Total Protein 5.7 g/dL (6.4-8.9) L 07/16/17 04:31 Albumin 2.0 g/dL (3.5-5.7) L 07/16/17 04:31 Globulin 3.7 g/dL (2.4-3.5) H 07/16/17 04:31 Albumin/Globulin Ratio 0.5 (1.1-2.2) L 07/16/17 04:31 Cholesterol 210 mg/dL (< 200) H 07/06/17 05:59 LDL Cholesterol, Calc 145 mg/dL (0-99) H 07/06/17 05:59 HDL Cholesterol 38 mg/dL (40-59) L 07/06/17 05:59 Cholesterol/HDL Ratio 5.5 (0-4.9) H 07/06/17 05:59 Urine Blood Trace (Negative) H 07/15/17 13:20 Ur Leukocyte Esterase Trace (Negative) H 07/15/17 13:20 Urine Microscopic RBC 3-5 per hpf (0-3) H 07/15/17 13:20 Urine Microscopic WBC 3-5 per hpf (0-3) H 07/15/17 13:20 Ur Squamous Epith Cells Moderate per lpf (None-Few) H 07/15/17 13:20 Urine Yeast Few per hpf (None Seen) H 07/15/17 13:20 Ur Culture Indicated? YES (NO) A 07/15/17 13:20 Vancomycin Trough 21.6 mcg/mL (10-20) H* 07/24/17 09:37 Staphylococcus sp PCR DETECTED (Not Detect) A 07/14/17 07:56 Staph aureus (PCR) DETECTED (Not Detect) A 07/14/17 07:56 mecA-Methicil Res Gene DETECTED (Not Detect) A 07/14/17 07:56 General appearance: Present: no acute distress - Head Head exam: Present: atraumatic, normal inspection - Eye Eye exam: Present: normal appearance - Respiratory Respiratory exam: Present: decreased breath sounds - Cardiovascular Cardiovascular exam: Present: RRR - GI/Abdominal GI/Abdominal exam: Present: normal bowel sounds, soft. Absent: tenderness - Extremities Exam Extremities exam: Absent: tenderness - Neurological Exam Neurological exam: Present: altered (Sleep at this time I did not try to awaken) - Psychiatric Psychiatric exam: Present: agitated (Has had episodes last night. Did respond well to Haldol per nursing staff) - Skin Skin exam: Present: dry, warm Palliative Quality Palliative Quality: Screen for Code Status: Yes, Screen for Goals of Care: Yes, Screen for Pain: Yes, If Pain Regimen Started, Initiate Bowel Regimen: Yes, Screen for Nausea/Vomitting: Yes Code Status: 07/16/17 14:43 DNR [Resuscitation Status: Active] [RES] Routine Comment: Resuscitation Status: [id number] - Labs CBC & Chem 7: 07/25/17 05:45 07/25/17 05:45 Labs: Laboratory Results - last 24 hr 07/23/17 07/24/17 07/24/17 19:36 07:18 09:37 WBC RBC Hgb Hct MCV MCH MCHC RDW Plt Count MPV PT INR Sodium Potassium Chloride Carbon Dioxide BUN Creatinine Est GFR ( Amer) Est GFR (Non-Af Amer) BUN/Creatinine Ratio Glucose POC Glucose 134 H 132 H Calculated Osmolality Calcium Vancomycin Trough 21.6 H* Specimen Rejected 07/24/17 07/24/17 07/25/17 11:57 16:43 05:43 WBC RBC Hgb Hct MCV MCH MCHC RDW Plt Count MPV PT INR Sodium Potassium Chloride Carbon Dioxide BUN Creatinine Est GFR ( Amer) Est GFR (Non-Af Amer) BUN/Creatinine Ratio Glucose POC Glucose 168 H 121 H Calculated Osmolality Calcium Vancomycin Trough Specimen Rejected Contaminated 07/25/17 07/25/17 07/25/17 05:45 05:45 05:45 WBC 4.9 RBC 2.82 L Hgb 7.7 L Hct 25.9 L MCV 91.8 MCH 27.3 L MCHC 29.7 L RDW 17.1 H Plt Count 221 MPV 9.1 L PT 56.9 H* INR 5.1 H* Sodium 141 Potassium 2.8 L Chloride 99 Carbon Dioxide 38 H BUN 10 Creatinine 0.91 Est GFR ( Amer) > 60 Est GFR (Non-Af Amer) > 60 BUN/Creatinine Ratio 11 Glucose 138 H POC Glucose Calculated Osmolality 293 Calcium 7.7 L Vancomycin Trough Specimen Rejected - Impressions Impressions KUB X-Ray 07/24/17 11:12 IMPRESSION: Feeding tube in place with tip in the region of the gastric antrum D/ / Thom Teixeira MD / Thom Teixeira MD Interpreting Provider: Thom Teixeira MD - ABG Interpretation ABG results: ABG ABG pH 7.44 pH Units (7.32-7.45) 07/15/17 19:10 ABG pCO2 48 mmHg (35-45) H 07/15/17 19:10 ABG pO2 73 mmHg (85-104) L 07/15/17 19:10 ABG O2 Saturation 95 % (95-98) 07/15/17 19:10 PT/INR, D-dimer PT 56.9 Seconds (9.4-12.1) H* 07/25/17 05:45 Consult Discharge Plan - Plan Referrals: Barbra Juarez MD [Primary Care Provider] - Prince Wolf MD [Family Provider] -
[2017-07-25] MEDS: Vancomycin 1,250 MG in D5% in Water 250 ML IVPB SCH (10:11)
[2017-07-25] MEDS: Aspirin 81 MG TAB.CHEW PO SCH (10:22)
--- NOTE | 2017-07-25 10:24 | Infectious Disease Progress No ---
Date of Encounter: 07/25/17 Time of Encounter: 10:21 - Assessment and Plan (1) MRSA bacteremia Current Visit: Yes Status: Acute Causative organism: MRSA. Source not clear. The patient did have a femur MRI that showed moderate volume of fluid in the right greater trochanteric bursa, but no evidence of septic arthritis. Joint aspiration negative for septic arthritis as well. The patient had a CT of the chest, abdomen, and pelvis, as well as a nuclear medicine bone scan. No definitive source of the MRSA bacteremia, but the patient was noted to have significant bilateral pleural effusions. Additionally, review of the bone scan shows increased uptake in the right hip per the hospitalist team's review of the imaging. Radiology recommends WBC scan to further evaluate, but recommend holding off for now as it likely won't change the course of the patient's treatment. Blood cultures drawn 07/08/17 grew MRSA, 2/2 sets. Additional blood cultures drawn 07/09/17 were positive 2/2 sets as well. Repeat blood cultures drawn 07/10/17 x 1 set and 07/12/17 x 1 set are also positive. Additional blood cultures drawn 07/14/17 are positive 1/2 sets. Repeat blood cultures drawn 07/16/17 are negative x 2 sets. Additional blood cultures drawn 07/17/17 are negative x 2 sets. The patient has one major and one minor Modified Lindsay's Criteria. TTE negative for vegetations. No endocarditis stigmata noted on exam. GILBERTO negative. CODY of Vanc is 1. Etiology of persistent bacteremia not clear, but the last positive set of blood cultures were drawn <48 hours after the patient had therapeutic Vanc trough, which could also be contributing to this. Most recent set of blood cultures are negative. Continue Vancomycin IV. Pharmacy to dose. Goal trough ~15. Vanc trough 20. Duration of treatment depends on the clinical picture, but likely 6 weeks due to the persistent bacteremia and unclear source. Monitor renal function and for drug toxicity and dose-adjust antibiotics. (2) Altered mental status Current Visit: Yes Status: Acute Likely secondary to acute lacunar infarct and worsened by infectious process and medications. CT head negative, but MRI of the brain showed multiple small infarcts in the bilateral mcdowell radiata and centrum semiovale compatible with bilateral acute lacunar infarcts. Neurology consulted. CT head and brain MRI repeated 07/16/17, but do not show any new findings. Anxiety and pain medication management per the primary team. Continue to monitor closely. Qualifiers: Qualified Code(s): R41.82 - Altered mental status, unspecified (3) Lacunar infarct, acute Current Visit: Yes Status: Acute (4) Lipoma Current Visit: Yes Status: Acute Location: Right thigh. CT scan of the right hip showed a partially visualized fat density mass in the posterior aspect of the proximal right thigh with thin internal septations, most likely representing a lipoma or benign atypical lipomatous tumor. MRI of the right femur again showed findings consistent with lipoma vs. benign atypical lipomatous tumor with significant mass effect the hamstring musculature. Qualifiers: Qualified Code(s): D17.23 - Benign lipomatous neoplasm of skin and subcutaneous tissue of right leg (5) Supratherapeutic INR Current Visit: Yes Status: Acute Improved. Further workup and evaluation per the primary team. (6) Chronic kidney disease (CKD) stage G3a/A3, moderately decreased glomerular filtration rate (GFR) between 45-59 mL/min/1.73 square meter and albuminuria creatinine ratio greater than 300 mg/g Current Visit: Yes Status: Acute Serum creatinine normal at this time. Continue to trend. Dose-adjust antibiotics as needed. Avoid nephrotoxins as able. (7) Chronic pain syndrome Current Visit: Yes Status: Acute Patient has had multiple MRIs and CT scans of the cervical, lumbar, thoracic spine and hips which revealed degenerative arthritis with no acute infectious process. (8) Arthritis Current Visit: Yes Status: Acute (9) Diabetes mellitus type 2 in obese Current Visit: No Status: Chronic Recommend aggressive glucose monitoring and control. Management per the primary team. 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 There was also a moderate volume of fluid in the right greater trochanteric bursa. Ortho consulted and appreciate their recommendations. Status post right hip bursa aspiration. Did not appear to be pus. Gram stain and culture negative. Status post nuclear medicine bone scan that is concerning for increased uptake in the right hip and pelvis per the hospitalist team's review of the films. Radiology recommends WBC scan. Recommend holding off on WBC scan for now as it likely will not change the course of the patient's treatment. Pain management per the primary team. (11) HCAP (healthcare-associated pneumonia) Current Visit: Yes Status: Acute CXR completed 07/08/17 showed findings suspicious for bibasilar atelectasis or PNA. Not sure if the patient truly has PNA or not. Currently on day 7 of Cefepime and received 1 day of Zosyn prior to switching to cefepime. Ct chest showed dense consolidations to the bilateral lower lobes and to the left upper love with complete collapse of the left upper lobe felt most likely related to dependent/compressive atelectasis. CT findings not indicative of PNA, but given the patient's altered mental status , she is at risk for silent aspiration. CXR 07/22/17 showed total opacification of the left hemithorax representing atelectasis of the left lung with a left pleural effusion. Continue Zosyn 3.375 grams IV Q8H (day 10). Duration of treatment depends on the clinical picture, but likely 10 days. (12) Shook catheter in place Current Visit: Yes Status: Acute (13) Pleural effusion Current Visit: No Status: Acute Likely secondary to third-spacing. CT chest shows bilateral pleural effusions, large on the left and moderate to large on the right. CXR 07/22/17 shows total opacification of the left hemithroax likely respresenting atelectasis secondary to the pleural effusion. Likely contributing to the patient's hypoxic episodes when her O2 comes off. Consider IR to drain. Does not appear infected, but recommend sending fluid for cell count with differential, protein, LDH, glucose, and gram stain with culture. Recommend pulmonary to evaluate. - Subjective Interval history: Patient seen and examined. No acute events noted overnight. Status post Dobhoff tube placement yesterday. Tube feeds started yesterday with small residuals. Patient continues to have AMS and cannot give me any ROS information. She has been given pain and anxiety medication and is currently resting quietly. Opens eyes to verbal stimuli but does not follow commands or verbalize. She does reach towards her face with her LUE when stimulated. She has been afebrile. Infect Dis PN-Objective Data - Labs CBC & Chem 7: 07/25/17 05:45 07/25/17 05:45 Labs: Laboratory Results - last 24 hr 07/23/17 07/24/17 07/24/17 19:36 07:18 09:37 WBC RBC Hgb Hct MCV MCH MCHC RDW Plt Count MPV PT INR Sodium Potassium Chloride Carbon Dioxide BUN Creatinine Est GFR ( Amer) Est GFR (Non-Af Amer) BUN/Creatinine Ratio Glucose POC Glucose 134 H 132 H Calculated Osmolality Calcium Vancomycin Trough 21.6 H* Specimen Rejected 07/24/17 07/24/17 07/25/17 11:57 16:43 05:43 WBC RBC Hgb Hct MCV MCH MCHC RDW Plt Count MPV PT INR Sodium Potassium Chloride Carbon Dioxide BUN Creatinine Est GFR ( Amer) Est GFR (Non-Af Amer) BUN/Creatinine Ratio Glucose POC Glucose 168 H 121 H Calculated Osmolality Calcium Vancomycin Trough Specimen Rejected Contaminated 07/25/17 07/25/17 07/25/17 05:45 05:45 05:45 WBC 4.9 RBC 2.82 L Hgb 7.7 L Hct 25.9 L MCV 91.8 MCH 27.3 L MCHC 29.7 L RDW 17.1 H Plt Count 221 MPV 9.1 L PT 56.9 H* INR 5.1 H* Sodium 141 Potassium 2.8 L Chloride 99 Carbon Dioxide 38 H BUN 10 Creatinine 0.91 Est GFR ( Amer) > 60 Est GFR (Non-Af Amer) > 60 BUN/Creatinine Ratio 11 Glucose 138 H POC Glucose Calculated Osmolality 293 Calcium 7.7 L Vancomycin Trough Specimen Rejected Cultures: Cultures 07/18/17 04:05 Blood Culture - Final Peripheral Venipuncture No growth. 07/18/17 04:00 Blood Culture - Final Peripheral Venipuncture No growth. 07/22/17 17:05 Urine Culture - Final Urine,[place] No growth. 07/17/17 10:03 Blood Culture - Final Peripheral Venipuncture No growth. 07/15/17 13:20 Urine Culture - Final Urine,[place]ook [place] Adelina glabrata 07/16/17 13:51 Blood Culture - Final Peripheral Venipuncture No growth. 07/16/17 13:51 Blood Culture - Final Peripheral Venipuncture No growth. 07/14/17 17:59 Blood Culture - Final Peripheral Venipuncture No growth. 07/14/17 07:56 Blood Culture - Final Peripheral Venipuncture Methicillin Resistant S.aureus 07/15/17 11:27 Gram Stain - Final Left Hip 07/12/17 03:55 Blood Culture - Final Peripheral Venipuncture Methicillin Resistant S.aureus 07/10/17 14:13 Blood Culture - Final Peripheral Venipuncture Methicillin Resistant S.aureus 07/09/17 14:15 Blood Culture - Final Peripheral Venipuncture Methicillin Resistant S.aureus 07/09/17 14:15 Blood Culture - Final Peripheral Venipuncture Methicillin Resistant S.aureus 07/08/17 00:55 Blood Culture - Final Peripheral Venipuncture Methicillin Resistant S.aureus 07/08/17 00:55 Blood Culture - Final Peripheral Venipuncture Methicillin Resistant S.aureus 07/08/17 08:10 Legionella Antigen - Final Urine,Clean Catch 07/08/17 08:10 Streptococcus pneumoniae Antigen (M - Final Urine,Clean Catch Serology 07/17/17 07/15/17 07/14/17 Range/Units 09:15 13:20 07:56 Urine Color Yellow (Yellow) Urine Clarity Clear (Clear) Urine pH 6.0 (5.0-8.0) pH Units Ur Specific Breaks 1.011 (1.010-1.025) Urine Protein Negative (Neg-Trace) mg/dL Urine Glucose (UA) Normal (Normal) mg/dL Urine Ketones Negative (Negative) mg/dL Urine Blood Trace H (Negative) Urine Nitrite Negative (Negative) Urine Bilirubin Negative (Negative) Urine Urobilinogen Normal (Normal) mg/dL Ur Leukocyte Esterase Trace H (Negative) Urine Microscopic RBC 3-5 H (0-3) per hpf Urine Microscopic WBC 3-5 H (0-3) per hpf Ur Squamous Epith Cells Moderate H (None-Few) per lpf Urine Bacteria None Seen (None-Few) per hpf Hyaline Casts None Seen (None-Few) per lpf Urine Yeast Few H (None Seen) per hpf Ur Culture Indicated? YES A (NO) A. baumannii (PCR) Not Detected (Not Detect) Chlamy pneumoniae PCR Not Detected (Not Detect) Adenovirus (PCR) Not Detected (Not Detect) B. pertussis DNA (PCR) Not Detected (Not Detect) B.parapertussis DNA PCR Not Detected (Not Detect) Adelina albicans (PCR) Not Detected (Not Detect) C. glabrata (PCR) Not Detected (Not Detect) C. krusei (PCR) Not Detected (Not Detect) C. parapsilosis (PCR) Not Detected (Not Detect) C. tropicalis (PCR) Not Detected (Not Detect) Coronavirus OC43 (PCR) Not Detected (Not Detect) Coronavirus HKU1 (PCR) Not Detected (Not Detect) Coronavirus 229E (PCR) Not Detected (Not Detect) Coronavirus NL63 (PCR) Not Detected (Not Detect) Enterobacteriac sp PCR Not Detected (Not Detect) E. cloacae complex PCR Not Detected (Not Detect) Enterococcus sp PCR Not Detected (Not Detect) E. coli (PCR) Not Detected (Not Detect) H. influenzae (PCR) Not Detected (Not Detect) Human Metapneumovir PCR Not Detected (Not Detect) Influenza A (H1) PCR Not Detected (Not Detect) Influ A (H1N1/09) PCR Not Detected (Not Detect) Influenza A (H3) PCR Not Detected (Not Detect) Influenza A Untype (PCR) Not Detected (Not Detect) Influenza Type B (PCR) Not Detected (Not Detect) Klebsiella oxytoca PCR Not Detected (Not Detect) Klebsiella pneumoniae Not Detected (Not Detect) List. monocytogenes PCR Not Detected (Not Detect) M.pneumoniae DNA (PCR) Not Detected (Not Detect) N. meningitidis (PCR) Not Detected (Not Detect) Parainfluenza 1 (PCR) Not Detected (Not Detect) Parainfluenza 2 (PCR) Not Detected (Not Detect) Parainfluenza 3 (PCR) Not Detected (Not Detect) Parainfluenza 4 (PCR) Not Detected (Not Detect) Proteus species (PCR) Not Detected (Not Detect) RSV (PCR) Not Detected (Not Detect) Entero/Rhino (PCR) Not Detected (Not Detect) Serratia marcescens PCR Not Detected (Not Detect) Staphylococcus sp PCR DETECTED A (Not Detect) Staph aureus (PCR) DETECTED A (Not Detect) mecA-Methicil Res Gene DETECTED A (Not Detect) Streptococcus sp PCR Not Detected (Not Detect) Group A Strep DNA Not Detected (Not Detect) Group B Strep (PCR) Not Detected (Not Detect) Strep pneumoniae (PCR) Not Detected (Not Detect) P. aeruginosa (PCR) Not Detected (Not Detect) Alexa/B-Vanco Res Genes Not Detected (Not Detect) KPC (blaKPC) Detect PCR Not Detected (Not Detect) 07/09/17 07/09/17 07/08/17 Range/Units 14:15 14:15 08:10 Urine Color Dark Yellow (Yellow) Urine Clarity Cloudy A (Clear) Urine pH 6.0 (5.0-8.0) pH Units Ur Specific Breaks > 1.030 H (1.010-1.025) Urine Protein 100 H (Neg-Trace) mg/dL Urine Glucose (UA) Normal (Normal) mg/dL Urine Ketones Negative (Negative) mg/dL Urine Blood Trace H (Negative) Urine Nitrite Negative (Negative) Urine Bilirubin Small H (Negative) Urine Urobilinogen Normal (Normal) mg/dL Ur Leukocyte Esterase Negative (Negative) Urine Microscopic RBC 5-15 H (0-3) per hpf Urine Microscopic WBC 30-50 H (0-3) per hpf Ur Squamous Epith Cells Moderate H (None-Few) per lpf Urine Bacteria Few (None-Few) per hpf Hyaline Casts Few (None-Few) per lpf Urine Yeast Moderate H (None Seen) per hpf Ur Culture Indicated? NO (NO) A. baumannii (PCR) Not Detected Not Detected (Not Detect) Chlamy pneumoniae PCR (Not Detect) Adenovirus (PCR) (Not Detect) B. pertussis DNA (PCR) (Not Detect) B.parapertussis DNA PCR (Not Detect) Adelina albicans (PCR) Not Detected Not Detected (Not Detect) C. glabrata (PCR) Not Detected Not Detected (Not Detect) C. krusei (PCR) Not Detected Not Detected (Not Detect) C. parapsilosis (PCR) Not Detected Not Detected (Not Detect) C. tropicalis (PCR) Not Detected Not Detected (Not Detect) Coronavirus OC43 (PCR) (Not Detect) Coronavirus HKU1 (PCR) (Not Detect) Coronavirus 229E (PCR) (Not Detect) Coronavirus NL63 (PCR) (Not Detect) Enterobacteriac sp PCR Not Detected Not Detected (Not Detect) E. cloacae complex PCR Not Detected Not Detected (Not Detect) Enterococcus sp PCR Not Detected Not Detected (Not Detect) E. coli (PCR) Not Detected Not Detected (Not Detect) H. influenzae (PCR) Not Detected Not Detected (Not Detect) Human Metapneumovir PCR (Not Detect) Influenza A (H1) PCR (Not Detect) Influ A (H1N1/09) PCR (Not Detect) Influenza A (H3) PCR (Not Detect) Influenza A Untype (PCR) (Not Detect) Influenza Type B (PCR) (Not Detect) Klebsiella oxytoca PCR Not Detected Not Detected (Not Detect) Klebsiella pneumoniae Not Detected Not Detected (Not Detect) List. monocytogenes PCR Not Detected Not Detected (Not Detect) M.pneumoniae DNA (PCR) (Not Detect) N. meningitidis (PCR) Not Detected Not Detected (Not Detect) Parainfluenza 1 (PCR) (Not Detect) Parainfluenza 2 (PCR) (Not Detect) Parainfluenza 3 (PCR) (Not Detect) Parainfluenza 4 (PCR) (Not Detect) Proteus species (PCR) Not Detected Not Detected (Not Detect) RSV (PCR) (Not Detect) Entero/Rhino (PCR) (Not Detect) Serratia marcescens PCR Not Detected Not Detected (Not Detect) Staphylococcus sp PCR DETECTED A DETECTED A (Not Detect) Staph aureus (PCR) DETECTED A DETECTED A (Not Detect) mecA-Methicil Res Gene DETECTED A DETECTED A (Not Detect) Streptococcus sp PCR Not Detected Not Detected (Not Detect) Group A Strep DNA Not Detected Not Detected (Not Detect) Group B Strep (PCR) Not Detected Not Detected (Not Detect) Strep pneumoniae (PCR) Not Detected Not Detected (Not Detect) P. aeruginosa (PCR) Not Detected Not Detected (Not Detect) Alexa/B-Vanco Res Genes Not Detected N/A (Not Detect) KPC (blaKPC) Detect PCR Not Detected N/A (Not Detect) 07/08/17 Range/Units 00:55 Urine Color (Yellow) Urine Clarity (Clear) Urine pH (5.0-8.0) pH Units Ur Specific Breaks (1.010-1.025) Urine Protein (Neg-Trace) mg/dL Urine Glucose (UA) (Normal) mg/dL Urine Ketones (Negative) mg/dL Urine Blood (Negative) Urine Nitrite (Negative) Urine Bilirubin (Negative) Urine Urobilinogen (Normal) mg/dL Ur Leukocyte Esterase (Negative) Urine Microscopic RBC (0-3) per hpf Urine Microscopic WBC (0-3) per hpf Ur Squamous Epith Cells (None-Few) per lpf Urine Bacteria (None-Few) per hpf Hyaline Casts (None-Few) per lpf Urine Yeast (None Seen) per hpf Ur Culture Indicated? (NO) A. baumannii (PCR) Not Detected (Not Detect) Chlamy pneumoniae PCR (Not Detect) Adenovirus (PCR) (Not Detect) B. pertussis DNA (PCR) (Not Detect) B.parapertussis DNA PCR (Not Detect) Adelina albicans (PCR) Not Detected (Not Detect) C. glabrata (PCR) Not Detected (Not Detect) C. krusei (PCR) Not Detected (Not Detect) C. parapsilosis (PCR) Not Detected (Not Detect) C. tropicalis (PCR) Not Detected (Not Detect) Coronavirus OC43 (PCR) (Not Detect) Coronavirus HKU1 (PCR) (Not Detect) Coronavirus 229E (PCR) (Not Detect) Coronavirus NL63 (PCR) (Not Detect) Enterobacteriac sp PCR Not Detected (Not Detect) E. cloacae complex PCR Not Detected (Not Detect) Enterococcus sp PCR Not Detected (Not Detect) E. coli (PCR) Not Detected (Not Detect) H. influenzae (PCR) Not Detected (Not Detect) Human Metapneumovir PCR (Not Detect) Influenza A (H1) PCR (Not Detect) Influ A (H1N1/09) PCR (Not Detect) Influenza A (H3) PCR (Not Detect) Influenza A Untype (PCR) (Not Detect) Influenza Type B (PCR) (Not Detect) Klebsiella oxytoca PCR Not Detected (Not Detect) Klebsiella pneumoniae Not Detected (Not Detect) List. monocytogenes PCR Not Detected (Not Detect) M.pneumoniae DNA (PCR) (Not Detect) N. meningitidis (PCR) Not Detected (Not Detect) Parainfluenza 1 (PCR) (Not Detect) Parainfluenza 2 (PCR) (Not Detect) Parainfluenza 3 (PCR) (Not Detect) Parainfluenza 4 (PCR) (Not Detect) Proteus species (PCR) Not Detected (Not Detect) RSV (PCR) (Not Detect) Entero/Rhino (PCR) (Not Detect) Serratia marcescens PCR Not Detected (Not Detect) Staphylococcus sp PCR DETECTED A (Not Detect) Staph aureus (PCR) DETECTED A (Not Detect) mecA-Methicil Res Gene DETECTED A (Not Detect) Streptococcus sp PCR Not Detected (Not Detect) Group A Strep DNA Not Detected (Not Detect) Group B Strep (PCR) Not Detected (Not Detect) Strep pneumoniae (PCR) Not Detected (Not Detect) P. aeruginosa (PCR) Not Detected (Not Detect) Alexa/B-Vanco Res Genes Not Detected (Not Detect) KPC (blaKPC) Detect PCR Not Detected (Not Detect) - Impressions Impressions [facility] X-Ray 07/24/17 11:12 IMPRESSION: Feeding tube in place with tip in the region of the gastric antrum D/ / Thom Teixeira MD / Thom Teixeira MD Interpreting Provider: Thom Teixeira MD Exam - Constitutional Vitals: Temp Pulse Resp BP Pulse Ox 98.4 F 72 19 118/62 92 07/25/17 06:44 07/25/17 06:44 07/25/17 06:44 07/25/17 06:44 07/25/17 06:44 General appearance: cooperative, no acute distress, obese - Head Head exam: Present: atraumatic, normal inspection, normocephalic - Eye Eye exam: Present: normal appearance, PERRL Pupils: Present: normal accommodation - ENT ENT exam: Present: mucous membranes dry Additional comments: Dobhoff tube noted to the right nare with tube feeds infusing. - Neck Neck exam: Present: normal inspection - Respiratory Respiratory exam: Present: decreased breath sounds (Left lung). Absent: rales, respiratory distress, rhonchi, wheezes - Cardiovascular Cardiovascular exam: Present: RRR, +S1, +S2 - GI/Abdominal GI/Abdominal exam: Present: distended (obese), normal bowel sounds, soft. Absent: tenderness Additional comments: Suprapubic catheter draining clear yellow urine. - Extremities Exam Extremities exam: Present: normal inspection, pedal edema (1+ RLE). Absent: joint swelling, tenderness - Neurological Exam Neurological exam: Present: altered (Sedated) - Skin Skin exam: Present: dry, intact, normal color, warm - VTE Documentation of Mechanical Device: Intermittent pneumatic compression device Consult Discharge Plan - Plan Referrals: Barbra Juarez MD [Primary Care Provider] - Prince Wolf MD [Family Provider] - - Attending Attestation I examined this patient and my medical decision-making was reviewed with the Resident Physician. I agree with the documented findings, disposition and treatment plan as described except to the extent set forth below.
[2017-07-25] MEDS: Metoclopramide 10 MG/2 ML VIAL IVP SCH ×2 (12:32→17:21)
--- NOTE | 2017-07-25 14:51 | Internal Med Progress Note ---
Addendum entered and electronically signed by Jimmy Ryan DO 07/25/17 16:23: Correction: Dobhoff tube placed on 07/24/17, this is day #2. Original Note: <Jimmy Ryan - Last Filed: 07/25/17 14:54> Date of Encounter: 07/25/17 Time of Encounter: 11:00 - Assessment and plan (1) MRSA bacteremia Current Visit: Yes Status: Acute Assessment and plan: - Persistent MRSA bacteremia. -Positive blood cultures on 07/09, 07/10, 07/12, 07/14 for MRSA - Blood cultures drawn on 07/16 and 07/17 and 07/18 no growth final. - Has been on vancomycin with goal trough of 15-20, day 16. Will likely require up to 6 weeks of abx. ID on board. PICC line placed - No obvious source identified. - Sacral decubitus ulcers being evaluated and changed per wound care - TTE and GILBERTO negative for vegetations for possible endocarditis. - AFebrile overnight, vitals unremarkable. No white count - CT scan results 07/18/17 showing bilateral pleural effusions, interlobular septal thickening of lungs with ground glass opacities, mild ascites, high attenuation material within the gallbladder with mild distention, colonic diverticulosis without diverticulitis. -Bone scan revealed degenerative uptake of right hip possibly degenerative in nature versus infectious. Plan - Continue vancomycin for a total of 6 weeks, per ID - Continue Zosyn coverage for possible aspiration pneumonia - Palliative consulted, code status changed to [id number] - Contact precautions. - infection appears to be clearing, mental status minimally improved. Pt not taking adequate oral nutrition (2) Acute cerebral infarction Current Visit: Yes Status: Acute Assessment and plan: - Acute right thalamic lacunar infarct as seen on brain MRI on 07/08/17 for right leg weakness - Scattered bilateral small infarcts suggestive of emboli of cardiac or septic etiology. - Neurology following appreciate recommendations. - Left carotid stenosis of 60-79%. - Per daughter, pt is not at baseline mental status. May also be attributable to infection vs metabolic etiologies. - Repeat Brain MRI on 07/16/17 showed no acute changes from previous. - Clinically may be mildly improved with less moaning and more eye contact. Plan - Continue statin, aspirin - Pt/OT when able. - Infectious disease following. Neuro has evaluated - Management of AMS and determine if alternative etiologies are contributing - Not a candidate for aggressive measures at this time due to other medical conditions and severity of other acute conditions. - Dobhoff feeding tube to be placed this morning to attempt nutrition, day 2 (3) Supratherapeutic INR Current Visit: Yes Status: Acute Assessment and plan: - INR of 8.7 on admission. - Most recently 5.1 this AM, has been steadily increasing despite holding coumadin. Plan - Pharmacy to dose coumadin. History of CVA, goal of INR of 2-3 - Continue to monitor for signs of bleed. - If continues to rise will likely require more FFP (4) Stage II pressure ulcer of buttock Current Visit: Yes Status: Acute Assessment and plan: per nursing. consult wound care. - Possible source of bacteremia. - Dressing changes. - Frequent bed turns. Qualifiers: Laterality: left Qualified Code(s): L89.322 - Pressure ulcer of left buttock, stage 2 (5) Altered mental status Current Visit: Yes Status: Acute Assessment and plan: - Etiology unclear at this time, likely multifactorial - Pain from femoral nerve compression vs acute cerebral infarct vs infectious vs pain vs possible psychological etiology - May be mildly improving. Unsure new baseline. Discussion with family regarding future goals of care. - Patient has been combative, requiring large amounts of pain medication and ativan. - Dobhoff tube placed yesterday with hopes of increased nutrition and oral medication intake. Plan - Treat underlying infection. Currently on Zosyn and vancomycin - Pain control - Possible new baseline, consulted palliative care - Continue seroquel via ND tube. -Discussion with family regarding goals of care yesterday. Dobhoff placed this morning. We will reassess for improvement with nutrition as well as returning PO meds. - Consider PEG placement vs palliative care rout depending on patient's improvement over next couple days. Qualifiers: Altered mental status type: unspecified Qualified Code(s): R41.82 - Altered mental status, unspecified (6) Lipoma Current Visit: Yes Status: Acute Assessment and plan: - MRI of the right femur showed a large 21.3 x 9.8 x 7.7 cm fat signal mass. Not exactly sure this is the cause of her issues. - Surgery consulted, no intervention for now per surgery service due to her other more acute medical issues. Plan - Unlikely surgical candidate - LIkely causing significant pain - Will monitor for now Qualifiers: Lipoma location: lower extremity Laterality: right Qualified Code(s): D17.23 - Benign lipomatous neoplasm of skin and subcutaneous tissue of right leg (7) Lumbar spinal stenosis Current Visit: Yes Status: Chronic Assessment and plan: Per CT scans. Has been seen by neurology. - No acute interventions while inpatient. - Pain control Qualifiers: Neurogenic claudication status: unspecified Qualified Code(s): M48.061 - Spinal stenosis, lumbar region without neurogenic claudication (8) Chronic kidney disease (CKD) stage G3a/A3, moderately decreased glomerular filtration rate (GFR) between 45-59 mL/min/1.73 square meter and albuminuria creatinine ratio greater than 300 mg/g Current Visit: Yes Status: Acute Assessment and plan: - Stage III per chart review. - BUN/Cr of 10/0.91 this AM - Calculated Creatinine clearance of 93 - Appears to be at baseline Plan - Monitor for fluid status - Avoid nephrotoxic agents - Continue vancomycin as benefit outweighs risk. Monitor and renally dose per pharmacy with goal trough of 15-20. (9) Anemia Current Visit: Yes Status: Acute Assessment and plan: - H/H of 7.7/25.9 this AM. Hgb of 7.7 yesterday. Has been stable - Likely a result of chronic disease, CKD III. Baseline 8-9 - Received 2 units during this admisssion - Unable to determine if symptomatic but has remained stable for past couple days Plan - Continue to monitor daily CBC - Transfuse as necessary Qualifiers: Anemia type: unspecified type Qualified Code(s): D64.9 - Anemia, unspecified (10) HCAP (healthcare-associated pneumonia) Current Visit: Yes Status: Acute Assessment and plan: - Concern for HCAP on CXR showing bilateral opacities - Aspiration coverage due to AMS - aFebrile, no WBC. - Sputum cultures negative. Blood cultures as above. Strep and legionella negative. Plan - Continue vancomycin day 17, zosyn day 10. - Received 7 days of cefepime - Tylenol PRN fever. (11) Hypokalemia Current Visit: Yes Status: Acute Assessment and plan: Potassium of 2.8 this morning, 3.1 yesterday -Will replenish with 40 mEq of potassium this AM with additional 40 in evening. PRN hypokalemia. - Continue to monitor. For increased oral intake. Code(s): E87.6 - Hypokalemia (12) DVT prophylaxis Current Visit: Yes Status: Acute Assessment and plan: Coumadin. Pharmacy to dose. - Time Spent With Patient 25 - 35 minutes - Subjective Interval history: Patient was seen and examined at bedside this morning. Patient was fast asleep this morning during interview. Family is present at bedside who state she is tolerating her nasoduodenal tube well but admit she has been sleeping a fair amount with sedation. Discussion with family about goals of care including a possible PEG tube if her oral intake does not improve. We also discussed placement to SNF either if she is able to tolerate oral intake vs going with a PEG tube. Daughter agreed that this will likely be the goal. - Constitutional Vitals: Temp Pulse Resp BP Pulse Ox 98.1 F 76 17 116/67 93 07/25/17 10:26 07/25/17 10:26 07/25/17 10:26 07/25/17 10:07/25/17 10:26 General appearance: Present: A&O X 0, obese Exam: Gen.: Vitals noted. No acute distress. AAOx0. Fast asleep HEENT: PERRL/EOMI, oropharynx clear, Normocephalic, atraumatic, MMM Cardiac: Irregular, no murmur, +S1/S2 Pulmonary: Diminished breath sounds, consistent with previous. equal chest expansion Abdomen: soft, nontender, BS noted, no guarding MSK: ROM intact, no joint swelling noted Extremities: no BLE edema, nontender calf, no cyanosis or clubbing Neuro: A&Ox0. unable to assess due to mental status Internal Medicine: Result - Labs CBC & Chem 7: 07/25/17 05:45 07/25/17 05:45 Labs: Short CBC 07/25/17 Range/Units 05:45 WBC 4.9 (4.3-11.1) K/mcL Hgb 7.7 L (11.5-15.4) g/dL Hct 25.9 L (35.3-44.9) % Plt Count 221 (140-400) K/mcL BMP 07/25/17 05:45 Sodium 141 Potassium 2.8 L Chloride 99 Carbon Dioxide 38 H BUN 10 Creatinine 0.91 Glucose 138 H Calcium 7.7 L - ABG Interpretation ABG results: ABG ABG pH 7.44 pH Units (7.32-7.45) 07/15/17 19:10 ABG pCO2 48 mmHg (35-45) H 07/15/17 19:10 ABG pO2 73 mmHg (85-104) L 07/15/17 19:10 ABG O2 Saturation 95 % (95-98) 07/15/17 19:10 PT/INR, D-dimer PT 56.9 Seconds (9.4-12.1) H* 07/25/17 05:45 - VTE Documentation of Mechanical Device: Intermittent pneumatic compression device Consult Discharge Plan - Plan Referrals: Barbra Juarez MD [Primary Care Provider] - Prince Wolf MD [Family Provider] - <Jc Thompson - Last Filed: 07/25/17 17:08> Date of Encounter: 07/25/17 - Assessment and plan (1) Acute respiratory failure with hypoxia Current Visit: Yes Status: Acute (2) Pleural effusion Current Visit: Yes Status: Acute (3) Acute metabolic encephalopathy Current Visit: Yes Status: Acute (4) MRSA (methicillin resistant Staphylococcus aureus) infection Current Visit: Yes Status: Acute (5) MRSA bacteremia Current Visit: Yes Status: Acute (6) Cerebrovascular accident (CVA) due to bilateral embolism of anterior cerebral arteries Current Visit: Yes Status: Acute (7) Chronic kidney disease (CKD) stage G3a/A3, moderately decreased glomerular filtration rate (GFR) between 45-59 mL/min/1.73 square meter and albuminuria creatinine ratio greater than 300 mg/g Current Visit: Yes Status: Acute (8) CHF (congestive heart failure) Current Visit: Yes Status: Chronic Qualifiers: Congestive heart failure type: systolic Congestive heart failure chronicity : acute on chronic Qualified Code(s): I50.23 - Acute on chronic systolic ( congestive) heart failure (9) COPD (chronic obstructive pulmonary disease) Current Visit: Yes Status: Chronic Qualifiers: COPD type: unspecified COPD Qualified Code(s): J44.9 - Chronic obstructive pulmonary disease, unspecified (10) Afib Current Visit: No Status: Chronic Qualifiers: Atrial fibrillation type: paroxysmal Qualified Code(s): I48.0 - Paroxysmal atrial fibrillation (11) CAD (coronary artery disease) Current Visit: No Status: Chronic Qualifiers: Coronary Disease-Associated Artery/Lesion type: [place] artery [place] vs. transplanted heart: [place] heart Associated angina: without angina Qualified Code(s): I25.10 - Atherosclerotic heart disease of [place] coronary artery without angina pectoris - Constitutional Vitals: Temp Pulse Resp BP Pulse Ox 99.3 F 71 16 99/58 95 07/25/17 15:25 07/25/17 15:25 07/25/17 15:25 07/25/17 15:25 07/25/17 15:25 Internal Medicine: Result - Labs CBC & Chem 7: 07/25/17 05:45 07/25/17 05:45 Labs: Short CBC 07/25/17 Range/Units 05:45 WBC 4.9 (4.3-11.1) K/mcL Hgb 7.7 L (11.5-15.4) g/dL Hct 25.9 L (35.3-44.9) % Plt Count 221 (140-400) K/mcL BMP 07/25/17 05:45 Sodium 141 Potassium 2.8 L Chloride 99 Carbon Dioxide 38 H BUN 10 Creatinine 0.91 Glucose 138 H Calcium 7.7 L - ABG Interpretation ABG results: ABG ABG pH 7.44 pH Units (7.32-7.45) 07/15/17 19:10 ABG pCO2 48 mmHg (35-45) H 07/15/17 19:10 ABG pO2 73 mmHg (85-104) L 07/15/17 19:10 ABG O2 Saturation 95 % (95-98) 07/15/17 19:10 PT/INR, D-dimer PT 56.9 Seconds (9.4-12.1) H* 07/25/17 05:45 - Attending Attestation I examined this patient and my medical decision-making was reviewed with the Resident Physician on 07/25/17. I agree with the documented findings, disposition and treatment plan as described except to the extent set forth below. Ms New has been admitted for MRSA bacteremia and encephalopathy. She remains moderate to high risk due to potential for worsening clinical status. Ms New is tolerating dobhoff. She had some increased residuals last night but OK now. No fever. She is getting liquid morphine for pain at this time. Exam alert. Comfortable Mucus membranes dry Heart reg Decreased breath sounds. No wheeze Abd soft I/P 1. MRSA bacteremia 2. L pleural effusion - will consult pulm per ID request to eval 3. Add Reglan Further diagnoses and plan as above.
--- NOTE | 2017-07-25 15:50 | Pulmonology Consult Note ---
Date of Encounter: 07/25/17 Time of Encounter: 15:49 Assessment and Plan (1) Pleural effusion Current Visit: No Status: Acute In conclusion 77-year-old woman with severe heart failure complicated by mitral valve regurgitation who presented with right hip pain prolonged hospitalization notable for MRSA bacteremia which was slow to clear. Course further complicated by delirium. For the standpoint of possibility of infected pleural space I think that this is unlikely as patient does not have an elevation in her white count and there is no associated fevers both of which would be anticipated to be seen with a complicated parapneumonic effusion/empyema. I reviewed the CT images of the lower portions of her long that were present on the abdominal CT scan which did not show any complex features at that time. I think the easiest/lease invasive way to further characterize her pleural space at this time would be to order a noncontrasted CT scan of the thorax and if there is any evidence of loculated effusion or complex features patient could be sent to IR for diagnostic thoracentesis and possible small bore chest tube placement at that time if needed. Clearly this is going to be complicated by her supratherapeutic INR which has been an ongoing issue. In reviewing the CT of the her abdomen/pelvis and chest x-ray is notable for opacification of the left hemithorax which I think is related to her preference for lying on the left side leading to atelectasis complicated by the large left- sided pleural effusion which is likely secondary to hydrostatic edema. With that stated, she is a high-risk for aspiration giving indwelling feeding tube and so is reasonable to have further investigation. Encouragingly the size of the effusions and her underlying heart failure are not requiring large amounts of supplemental oxygen to correct hypoxemia (today she was receiving 4L via NC with SaO2% in the mid 90s. Her delirium was multifactorial but I think his most likely due to TIL[employer] ASSIST[employer] depressant medications including analgesics and atypical antipsychotics which I would be cautious in using in this patient. Prolonged hospitalization and severity of her recent infection and CVA are all contributing causes I will defer the choice and duration of antimicrobials to the infectious disease service Unfortunately her clinical course has deteriorated markedly since I saw her a few months back and at that point she was in very poor overall health for which I thought hospice may be a very reasonable option for her at that time. My impression now is a patient is not likely to survive this hospitalization given degree of global deterioration. I see that palliative care has been evaluating the patient and goals of care are being discussed which is very appropriate and should influence all further testing/treatment for this patient. I will follow-up on the CT scan it if it is decided to be ordered by the primary service otherwise call with any questions. Thank you for this consultation (2) Delirium Current Visit: Yes Status: Acute (3) MRSA (methicillin resistant Staphylococcus aureus) infection Current Visit: Yes Status: Acute (4) Goals of care, counseling/discussion Current Visit: Yes Status: Acute History of Present Illness Consult date: 07/25/17 Requesting physician: Jc Thompson Reason for consult: pleural effusion Chief complaint: Difficulty in Breathing History of present illness: History was obtained by the medical record, housestaff, along with the infectious disease specialist, as patient was unable to provide any history or current symptoms and there was no family present This is a 77-year-old woman whom I I had the pleasure of initially taking care of late last year when she presented to my pulmonary clinic for evaluation of new hypoxic respiratory failure at that point I felt as though she had decompensated heart failure and admitted to [facility] for further evaluation. On that admission she was noted to have bilateral effusions secondary to hydrostatic pulmonary edema from heart failure with reduced ejection fraction complicated by mitral regurgitation. She was evaluated by the cardiology service symptoms improved after bilateral thoracentesis and she was discharged. I have not seen her since that admission. She was readmitted to the hospital this time for right hip pain and has had a prolonged hospitalization (she has been admitted since the early part of this month) has been complicated by ischemic infarct and MRSA bacteremia which was slow to resolve. Source of this bacteremia is not entirely clear but possibly the right hip. Unfortunately course has been further deteriorated by encephalopathy and inability to take by mouth with placement of Dobbhoff for nutritional support. She is also severed from prolonged elevation in her INR which she is taking for primary stroke prevention with a history of underlying atrial fibrillation. Pulmonary was consulted on the patient to evaluate if the pleural effusions noted on imaging could be a nidus of infection that could be contributing to her overall encephalopathy or persistent MRSA bacteremia (which notably has now cleared) Past Med Surg Social Fam HX - Past Medical History Medical history: arthritis, atrial fibrillation, CHF, COPD, coronary artery disease, GERD, hyperlipidemia, hypertension, myocardial infarction Psychiatric history: no psych history - Past Surgical History Surgical History: other - Social History Smoking Status: Never smoker Smokeless Tobacco Status: No Alcohol use: none Drug use: none - Family History Mother Age: 25 Living Status: Age at : 28 Cause of : PR Hx Family Cardiac Disorders: Yes Hx Family Respiratory Disorders: No Hx Family Cancer: No Hx Family GI Disorders: No Hx Family Genitourinary Disorders: No Hx Family Endocrine Disorder: No Hx Family Musculoskeletal Disorders: No Hx Family Neuromuscular Disorders: No Hx Family Neurologic Disorders: No Hx Family HEENT Disorders: No Father Race: Family Member Ethnicity: Non- Living Status: Age at : 58 Cause of : PR Hx Family Cardiac Disorders: Yes (PR) Brother Race: Family Member Ethnicity: Non- Living Status: Age at : 76 Cause of : Lung cancer Hx Family Cancer: Yes (Lung) Medications and Allergies Albuterol Sulfate [Albuterol Inhaler] 2 puff IH Q6H PRN 05/27/17 [History] Budesonide/Formoterol 80/4.5 [Symbicort 80/4.5] 2 puff IH BID 05/27/17 [History ] Amiodarone [Cordarone] 200 mg PO DAILY tablet 06/06/17 [Rx] Aspirin Enteric Coated [Aspirin EC] 81 mg PO Q48H #0 tablet.dr 06/20/17 [Rx] Digoxin [Lanoxin] 0.25 mg PO DAILY #30 tablet 06/20/17 [Rx] Furosemide [Lasix] 20 mg PO DAILY #0 tablet 06/20/17 [Rx] Isosorbide MONOnitrate (24 HR) [Imdur] 60 mg PO DAILY #30 tab.er.24h 06/20/17 [ Rx] Lisinopril [Zestril] 5 mg PO DAILY #30 tablet 06/20/17 [Rx] Ranitidine HCl [Heartburn Relief] 150 mg PO BID PRN #0 06/20/17 [Rx] Warfarin [Coumadin] 1.5 mg PO QPM 07/06/17 [History] 3 Allergy/AdvReac Type Severity Reaction Status Date / Time No Known Allergies Allergy Verified 07/05/17 13:12 All Systems: A 10-system review of systems was performed and is negative for pertinent findings except as documented above in the HPI. Physical Examination Vital Signs: Vital Signs, Last 4 Hours Temp Pulse Resp BP Pulse Ox 07/25/17 15:25 99.3 F 71 16 99/58 95 General appearance: other (The patient is lying in bed on her left side she responds only to painful stimuli and cries out in pain often. She has her eyes closed tightly during the entire conversation) Eyes: nonicteric ENT: oropharynx dry, other (Small bore and control nutritional tube noted) Neck: supple Effort: normal Auscultation: bilateral: diminished breath sounds Cardiovascular: irregular rhythm Gastrointestinal: hypoactive bowel sounds, soft Extremities: anasarca Musculoskeletal: joint tenderness (She cries out in pain with palpation of her legs including right hip) pupils equal and round, other (She is able to move all extremities spontaneously but does not follow commands regularly) Results - Laboratory Findings CBC and BMP: 07/25/17 05:45 07/25/17 05:45 ABG ABG pH 7.44 pH Units (7.32-7.45) 07/15/17 19:10 ABG pCO2 48 mmHg (35-45) H 07/15/17 19:10 ABG pO2 73 mmHg (85-104) L 07/15/17 19:10 ABG O2 Saturation 95 % (95-98) 07/15/17 19:10 PT/INR, D-dimer PT 56.9 Seconds (9.4-12.1) H* 07/25/17 05:45 Abnormal lab findings: Abnormal lab results RBC 2.82 M/mcL (3.82-4.97) L 07/25/17 05:45 Hgb 7.7 g/dL (11.5-15.4) L 07/25/17 05:45 Hct 25.9 % (35.3-44.9) L 07/25/17 05:45 MCH 27.3 pg (28.0-33.3) L 07/25/17 05:45 MCHC 29.7 g/dL (31.6-35.5) L 07/25/17 05:45 RDW 17.1 % (11.5-14.5) H 07/25/17 05:45 MPV 9.1 fL (9.4-12.4) L 07/25/17 05:45 Nucleated RBCs/100 WBC 0.3 /100 WBC (0) H 07/20/17 06:15 PT 56.9 Seconds (9.4-12.1) H* 07/25/17 05:45 INR 5.1 H* 07/25/17 05:45 APTT 56.0 Seconds (26.0-36.0) H 07/06/17 05:59 ABG pCO2 48 mmHg (35-45) H 07/15/17 19:10 ABG pO2 73 mmHg (85-104) L 07/15/17 19:10 ABG HCO3 33 mEq/L (21-27) H 07/15/17 19:10 ABG Total CO2 34 mEq/L (20-26) H 07/15/17 19:10 ABG Base Excess 7 mEq/L (-2 to 3) H 07/15/17 19:10 Potassium 2.8 mEq/L (3.5-5.1) L 07/25/17 05:45 Carbon Dioxide 38 mEq/L (23-29) H 07/25/17 05:45 Glucose 138 mg/dL (70-105) H 07/25/17 05:45 POC Glucose 153 (58-89) H 07/25/17 06:45 Hemoglobin A1c 7.8 % (-5.6) H 07/08/17 00:55 Calcium 7.7 mg/dL (8.6-10.3) L 07/25/17 05:45 AST 8 Units/L (13-39) L 07/16/17 04:31 Alkaline Phosphatase 32 Units/L (34-104) L 07/16/17 04:31 Serum Total Protein 5.7 g/dL (6.4-8.9) L 07/16/17 04:31 Albumin 2.0 g/dL (3.5-5.7) L 07/16/17 04:31 Globulin 3.7 g/dL (2.4-3.5) H 07/16/17 04:31 Albumin/Globulin Ratio 0.5 (1.1-2.2) L 07/16/17 04:31 Cholesterol 210 mg/dL (< 200) H 07/06/17 05:59 LDL Cholesterol, Calc 145 mg/dL (0-99) H 07/06/17 05:59 HDL Cholesterol 38 mg/dL (40-59) L 07/06/17 05:59 Cholesterol/HDL Ratio 5.5 (0-4.9) H 07/06/17 05:59 Urine Blood Trace (Negative) H 07/15/17 13:20 Ur Leukocyte Esterase Trace (Negative) H 07/15/17 13:20 Urine Microscopic RBC 3-5 per hpf (0-3) H 07/15/17 13:20 Urine Microscopic WBC 3-5 per hpf (0-3) H 07/15/17 13:20 Ur Squamous Epith Cells Moderate per lpf (None-Few) H 07/15/17 13:20 Urine Yeast Few per hpf (None Seen) H 07/15/17 13:20 Ur Culture Indicated? YES (NO) A 07/15/17 13:20 Vancomycin Trough 21.6 mcg/mL (10-20) H* 07/24/17 09:37 Staphylococcus sp PCR DETECTED (Not Detect) A 07/14/17 07:56 Staph aureus (PCR) DETECTED (Not Detect) A 07/14/17 07:56 mecA-Methicil Res Gene DETECTED (Not Detect) A 07/14/17 07:56 - Microbiology Findings Microbiology Findings: Microbiology, Last 48 Hours 07/18/17 04:05 Blood Culture - Final Peripheral Venipuncture No growth. 07/18/17 04:00 Blood Culture - Final Peripheral Venipuncture No growth. 07/22/17 17:05 Urine Culture - Final Urine,[place] No growth. - Diagnostic Findings Chest x-ray: report reviewed, image reviewed (CT abdomen/pelvis reviewed ) - Clinical Findings Intake & Output: Intake & Output 07/24/17 07/25/17 07/25/17 23:59 07:59 15:59 Intake Total 419 / 419 438 / 438 400 / 400 Output Total 1425 / 1425 625 / 625 0 / 0 Balance -1006 / -1006 -187 / -187 400 / 400 Weight 87.4 kg Consult Discharge Plan - Plan Referrals: Barbra Juarez MD [Primary Care Provider] - Prince Wolf MD [Family Provider] -
[2017-07-25] MEDS: *HR* FentaNYL PATCH 75 MCG PATCH TD SCH (17:21)
[2017-07-25] MEDS: Silvasorb 44.4 ML TUBE TP SCH (19:25)
[2017-07-25] MEDS: Bisacodyl 10 MG RECTAL SUPPOSITORY RC SCH (23:09)
[2017-07-26] MEDS: Metoclopramide 10 MG/2 ML VIAL IVP SCH ×5 (00:53→22:22)
[2017-07-26] MEDS: *HR* LORazepam 2 MG/ML VIAL IVP SCH ×6 (02:02→22:22)
[2017-07-26] MEDS: Acetaminophen 650 MG RECTAL SUPP RC PRN (05:41)
[2017-07-26 05:52] LABS: Hematocrit 26.6 % (35.3-44.9); Hemoglobin 8.1 g/dL (11.5-15.4); Mean Corpuscular HGB Conc 30.5 g/dL (31.6-35.5); Mean Corpuscular Hemoglobin 27.8 pg (28.0-33.3); Mean Corpuscular Volume 91.4 fL (83.0-100.0); Mean Platelet Volume 9.7 fL (9.4-12.4); Platelet Count 219 K/mcL (140-400); Red Blood Count 2.91 M/mcL (3.82-4.97); Red Cell Distribution Width 17.6 % (11.5-14.5)
[2017-07-26 06:05] LABS: INR 3.6; Prothrombin Time 39.6 Seconds (9.4-12.1)
[2017-07-26 06:18] LABS: Magnesium 1.5 mg/dL (1.6-2.6); Phosphorous 2.4 mg/dL (2.7-4.5)
[2017-07-26 06:22] LABS: Calcium 7.4 mg/dL (8.6-10.3); Potassium 3.8 mEq/L (3.5-5.1)
--- NOTE | 2017-07-26 07:55 | Internal Med Progress Note ---
Date of Encounter: 07/26/17 Time of Encounter: 07:40 - Assessment and plan (1) Acute respiratory failure with hypoxia Current Visit: Yes Status: Acute Assessment and plan: Continue oxygen supplementation. Appears to be oxygenating OK despite pleural effusion. (2) Pleural effusion Current Visit: Yes Status: Acute Assessment and plan: Appreciate pulmonary input. At this point we have not pursued repeat CT. Will need further discussion with family as she cannot sit up for thoracentesis. (3) Acute metabolic encephalopathy Current Visit: Yes Status: Acute Assessment and plan: Seems more comfortable at this time. (4) Diabetes mellitus type 2 in obese Current Visit: No Status: Chronic Assessment and plan: Blood sugar elevated now that tube feeds started. Will adjust insulin treatment. (5) MRSA (methicillin resistant Staphylococcus aureus) infection Current Visit: Yes Status: Acute Assessment and plan: On IV Vancomycin. Had fever again last night. No other source noted at this time. Monitoring temperature curve. (6) MRSA bacteremia Current Visit: Yes Status: Acute Assessment and plan: - Persistent MRSA bacteremia. -Positive blood cultures on 07/09, 07/10, 07/12, 07/14 for MRSA - Blood cultures drawn on 07/16 and 07/17 and 07/18 no growth final. - Has been on vancomycin with goal trough of 15-20. Will likely require up to 6 weeks of abx. ID on board. PICC line placed - No obvious source identified. - Sacral decubitus ulcers being evaluated and changed per wound care - TTE and GILBERTO negative for vegetations for possible endocarditis. - AFebrile overnight, vitals unremarkable. No white count - CT scan results 07/18/17 showing bilateral pleural effusions, interlobular septal thickening of lungs with ground glass opacities, mild ascites, high attenuation material within the gallbladder with mild distention, colonic diverticulosis without diverticulitis. -Bone scan revealed degenerative uptake of right hip possibly degenerative in nature versus infectious. Plan - Continue vancomycin for a total of 6 weeks, per ID - Continue Zosyn coverage for possible aspiration pneumonia - Palliative consulted, code status changed to [id number] - Contact precautions. - had recurrent fever last night. Following. (7) Cerebrovascular accident (CVA) due to bilateral embolism of anterior cerebral arteries Current Visit: Yes Status: Acute Assessment and plan: Continue supportive care. (8) Chronic kidney disease (CKD) stage G3a/A3, moderately decreased glomerular filtration rate (GFR) between 45-59 mL/min/1.73 square meter and albuminuria creatinine ratio greater than 300 mg/g Current Visit: Yes Status: Acute Assessment and plan: - Stage III per chart review. - BUN/Cr of 14.1.11 this AM - Appears to be at baseline Plan - Monitor for fluid status - Avoid nephrotoxic agents - Continue vancomycin as benefit outweighs risk. Monitor and renally dose per pharmacy with goal trough of 15-20. (9) CHF (congestive heart failure) Current Visit: Yes Status: Chronic Assessment and plan: Continue diuresis at this time. Qualifiers: Congestive heart failure type: systolic Congestive heart failure chronicity : acute on chronic Qualified Code(s): I50.23 - Acute on chronic systolic ( congestive) heart failure (10) COPD (chronic obstructive pulmonary disease) Current Visit: Yes Status: Chronic Assessment and plan: Stable Qualifiers: COPD type: unspecified COPD Qualified Code(s): J44.9 - Chronic obstructive pulmonary disease, unspecified (11) Afib Current Visit: No Status: Chronic Assessment and plan: No issues at this time. Qualifiers: Atrial fibrillation type: paroxysmal Qualified Code(s): I48.0 - Paroxysmal atrial fibrillation (12) CAD (coronary artery disease) Current Visit: No Status: Chronic Assessment and plan: Chronic issue. Has nitro patch. Qualifiers: Coronary Disease-Associated Artery/Lesion type: [place] artery [place] vs. transplanted heart: [place] heart Associated angina: without angina Qualified Code(s): I25.10 - Atherosclerotic heart disease of [place] coronary artery without angina pectoris - Subjective Interval history: Ms New is currently admitted for MRSA bacteremia and CVAs. She remains moderate to high risk due to potential for worsening clinical status. Ms New had another fever last night. She has been more comfortable but less awake. She remains agitated and uncomfortable with any movement. Tolerating tube feeds at increased rate of 50ml/hr. - Constitutional Vitals: Temp Pulse Resp BP Pulse Ox 98.3 F 85 20 103/61 95 07/26/17 07:35 07/26/17 07:35 07/26/17 07:35 07/26/17 07:35 07/26/17 07:35 General appearance: Present: A&O X 0, obese - Head Head exam: Present: atraumatic, normocephalic - ENT ENT exam: Present: mucous membranes dry - Respiratory Respiratory exam: Present: decreased breath sounds. Absent: rales, rhonchi, wheezes Additional comments: Clear anteriorly and laterally. Diminished on left. - Cardiovascular Cardiovascular exam: Present: RRR. Absent: tachycardia - GI/Abdominal GI/Abdominal exam: Present: soft. Absent: mass, tenderness - Extremities Exam Extremities exam: Present: warm. Absent: tenderness - Neurological Exam Neurological exam: Absent: alert - Skin Skin exam: Present: warm. Absent: rash Internal Medicine: Result - Labs CBC & Chem 7: 07/26/17 05:19 07/26/17 05:19 Labs: Short CBC 07/26/17 Range/Units 05:19 WBC 5.9 (4.3-11.1) K/mcL Hgb 8.1 L (11.5-15.4) g/dL Hct 26.6 L (35.3-44.9) % Plt Count 219 (140-400) K/mcL BMP 07/26/17 05:19 Sodium 137 Potassium 3.8 D Chloride 96 L Carbon Dioxide 38 H BUN 14 Creatinine 1.11 Glucose 310 H Calcium 7.4 L - ABG Interpretation ABG results: ABG ABG pH 7.44 pH Units (7.32-7.45) 07/15/17 19:10 ABG pCO2 48 mmHg (35-45) H 07/15/17 19:10 ABG pO2 73 mmHg (85-104) L 07/15/17 19:10 ABG O2 Saturation 95 % (95-98) 07/15/17 19:10 PT/INR, D-dimer PT 39.6 Seconds (9.4-12.1) H 07/26/17 05:19 - VTE Documentation of Mechanical Device: Intermittent pneumatic compression device Consult Discharge Plan - Plan Referrals: Barbra Juarez MD [Primary Care Provider] - Prince Wolf MD [Family Provider] -
[2017-07-26] MEDS: *HR* Amiodarone 200 MG TABLET GTUBE SCH (08:46)
[2017-07-26] MEDS: Pantoprazole 40 MG VIAL IVP SCH (08:46)
[2017-07-26] MEDS: Furosemide 40 MG/4 ML VIAL IVP SCH ×2 (08:46→18:16)
[2017-07-26] MEDS: Insulin LISPRO 300 UNITS/3 ML VIAL SQ SCH ×3 (08:46→18:15)
[2017-07-26] MEDS: Lactobacillus 1 EACH CAP.SPRINK PO SCH (08:46)
[2017-07-26] MEDS: Nitroglycerin 0.4 MG PATCH.TD24 TD SCH (08:46)
[2017-07-26] MEDS: Vancomycin 1,250 MG in D5% in Water 250 ML IVPB SCH (08:50)
[2017-07-26] MEDS: Nystatin SUSP 5 ML UD.LIQ PO SCH ×4 (09:27→22:23)
[2017-07-26] MEDS ORDERED: Insulin LISPRO 300 UNITS/3 ML VIAL SQ SCH (11:14)
--- NOTE | 2017-07-26 11:29 | Event Note ---
Date of Encounter: 07/26/17 Time of Encounter: 11:00 Patient is currently resting quietly with son and daughter at bedside. I did not disturb her today. Provided emotional support to family, they seem pleased that every effort has been taken to try and find answers related to pt condition. Remains of IV Vancomycin and will need additional 6 weeks of therapy. Review recent testing and pulmonary consult. Will continue to follow clinical course. Family states pain medications and Ativan are effective in keeping her calm and comfortable. Patient had 2 doses (30 mg total) of Roxanol in past 24 hrs.
[2017-07-26] MEDS: Silvasorb 44.4 ML TUBE TP SCH (14:07)
[2017-07-26] MEDS: Insulin DETEMIR 100 UNIT/ML X5UNITS SQ SCH (22:20)
[2017-07-26] MEDS: Bisacodyl 10 MG RECTAL SUPPOSITORY RC SCH (22:22)
[2017-07-27] MEDS: Metoclopramide 10 MG/2 ML VIAL IVP SCH ×5 (00:14→18:32)
[2017-07-27] MEDS: *HR* LORazepam 2 MG/ML VIAL IVP SCH ×6 (02:01→21:38)
[2017-07-27] MEDS: Morphine Oral CONC 5 MG/0.25 ML ORAL.SYG GTUBE PRN ×3 (03:34→16:25)
--- NOTE | 2017-07-27 09:00 | Palliative Progress Note ---
Date of Encounter: 07/27/17 Time of Encounter: 08:30 - Assessment and plan (1) Right hip pain Current Visit: Yes Status: Acute Assessment and plan: Patient with eyes closed, doesn't respond verbally, squints eyes closed with facial grimace with tactile stimulation to right arm and leg. Positioned for comfort with yelling out. Patient appears calm when not being touched to right arm or hip. Plan: - Continue Fentanly patch - BTP with Roxanol (Had 10 mg in past 24 hrs) (2) Failure to thrive in adult Current Visit: Yes Status: Acute Assessment and plan: Patient on day 22 of admission. Now receiving TF via Dobbhoff tube with little neurological or physical improvement. Family still desires feeding but just not clear on desires for PEG yet. Patient unable to orally take in feeding. MRI brain reveals multiple infarcts. Overall poor prognosis. (3) Counseling regarding advanced care planning and goals of care Current Visit: No Status: Acute Assessment and plan: Patient is DNRCC - A, DNI. She has suffered multiple cerebral infarcts and still remains neurologically altered and unable to participate in any conversations. Overall prognosis is poor. Performance function is poor as patient remains unable to tolerate movement of right hip given negative fluid aspiration and bone scan with degenerative disease. Noted Lipoma. Patient noted to have spinal stenosis of L4-5 respectively. Concerns for patients ability to tolerate [employer] antibiotics. INR 3.6 now. Will continue to follow course and work the family. EF 30%. - Time Spent With Patient Total time spent is greater than 50% in coordination of care (as documented) at patient's floor/unit and/or counseling patient: 25 - 35 minutes - Subjective Interval history: Complete chart reviewed. Patient on day 22 of admission. Receiving TF per Dobbhoff tube day 3 of feedings. Patient mental status remains altered with occasional moaning, not following commands, eyes closed and intolerant of any tactile stimulation to right arm or leg. Met family yesterday but not present for assessment this AM. Vital signs stable this morning. Laying in bed. - Constitutional Vitals: Abnormal lab results RBC 2.91 M/mcL (3.82-4.97) L 07/26/17 05:19 Hgb 8.1 g/dL (11.5-15.4) L 07/26/17 05:19 Hct 26.6 % (35.3-44.9) L 07/26/17 05:19 MCH 27.8 pg (28.0-33.3) L 07/26/17 05:19 MCHC 30.5 g/dL (31.6-35.5) L 07/26/17 05:19 RDW 17.6 % (11.5-14.5) H 07/26/17 05:19 Nucleated RBCs/100 WBC 0.3 /100 WBC (0) H 07/20/17 06:15 PT 39.6 Seconds (9.4-12.1) H 07/26/17 05:19 APTT 56.0 Seconds (26.0-36.0) H 07/06/17 05:59 ABG pCO2 48 mmHg (35-45) H 07/15/17 19:10 ABG pO2 73 mmHg (85-104) L 07/15/17 19:10 ABG HCO3 33 mEq/L (21-27) H 07/15/17 19:10 ABG Total CO2 34 mEq/L (20-26) H 07/15/17 19:10 ABG Base Excess 7 mEq/L (-2 to 3) H 07/15/17 19:10 Chloride 96 mEq/L (98-107) L 07/26/17 05:19 Carbon Dioxide 38 mEq/L (23-29) H 07/26/17 05:19 Est GFR ( Amer) 58 (> 60) L 07/26/17 05:19 Est GFR (Non-Af Amer) 48 (> 60) L 07/26/17 05:19 Glucose 310 mg/dL (70-105) H 07/26/17 05:19 POC Glucose 225 (58-89) H 07/26/17 19:08 Hemoglobin A1c 7.8 % (-5.6) H 07/08/17 00:55 Calcium 7.4 mg/dL (8.6-10.3) L 07/26/17 05:19 Phosphorus 2.4 mg/dL (2.7-4.5) L 07/26/17 05:19 Magnesium 1.5 mg/dL (1.6-2.6) L 07/26/17 05:19 AST 8 Units/L (13-39) L 07/16/17 04:31 Alkaline Phosphatase 32 Units/L (34-104) L 07/16/17 04:31 Serum Total Protein 5.7 g/dL (6.4-8.9) L 07/16/17 04:31 Albumin 2.0 g/dL (3.5-5.7) L 07/16/17 04:31 Globulin 3.7 g/dL (2.4-3.5) H 07/16/17 04:31 Albumin/Globulin Ratio 0.5 (1.1-2.2) L 07/16/17 04:31 Cholesterol 210 mg/dL (< 200) H 07/06/17 05:59 LDL Cholesterol, Calc 145 mg/dL (0-99) H 07/06/17 05:59 HDL Cholesterol 38 mg/dL (40-59) L 07/06/17 05:59 Cholesterol/HDL Ratio 5.5 (0-4.9) H 07/06/17 05:59 Urine Blood Trace (Negative) H 07/15/17 13:20 Ur Leukocyte Esterase Trace (Negative) H 07/15/17 13:20 Urine Microscopic RBC 3-5 per hpf (0-3) H 07/15/17 13:20 Urine Microscopic WBC 3-5 per hpf (0-3) H 07/15/17 13:20 Ur Squamous Epith Cells Moderate per lpf (None-Few) H 07/15/17 13:20 Urine Yeast Few per hpf (None Seen) H 07/15/17 13:20 Ur Culture Indicated? YES (NO) A 07/15/17 13:20 Vancomycin Trough 21.6 mcg/mL (10-20) H* 07/24/17 09:37 Staphylococcus sp PCR DETECTED (Not Detect) A 07/14/17 07:56 Staph aureus (PCR) DETECTED (Not Detect) A 07/14/17 07:56 mecA-Methicil Res Gene DETECTED (Not Detect) A 07/14/17 07:56 - Head Head exam: Present: atraumatic, normal inspection - Eye Eye exam: Present: PERRL - ENT ENT exam: Present: mucous membranes dry - Neck Neck exam: Present: normal inspection - Respiratory Respiratory exam: Present: decreased breath sounds - Expanded Respiratory Exam Location: decreased breath sounds: Left, Right, Lower - Cardiovascular Cardiovascular exam: Present: +S1, +S2 - GI/Abdominal GI/Abdominal exam: Present: normal bowel sounds, soft (producing BMs) - Extremities Exam Extremities exam: Present: tenderness (Right arm and hip. Intolerable of tactile stmulation) - Expanded Lower Extremity Exam Hip exam: Present: tenderness - Neurological Exam Neurological exam: Present: altered (moans, not coorperative, doesn't follow commands) - Psychiatric Psychiatric exam: Present: flat affect - Skin Skin exam: Present: pallor (Sacral decub managed per wound care), warm Palliative Quality Palliative Quality: Screen for Code Status: Yes, Screen for Goals of Care: Yes, Screen for Pain: Yes, If Pain Regimen Started, Initiate Bowel Regimen: Yes, Screen for Nausea/Vomitting: Yes Code Status: 07/16/17 14:43 DNR [Resuscitation Status: Active] [RES] Routine Comment: Resuscitation Status: [id number] - Labs CBC & Chem 7: 07/26/17 05:19 07/26/17 05:19 Labs: Laboratory Results - last 24 hr 07/26/17 07/26/17 07/26/17 07:40 11:23 19:08 POC Glucose 356 H 324 H 225 H - ABG Interpretation ABG results: ABG ABG pH 7.44 pH Units (7.32-7.45) 07/15/17 19:10 ABG pCO2 48 mmHg (35-45) H 07/15/17 19:10 ABG pO2 73 mmHg (85-104) L 07/15/17 19:10 ABG O2 Saturation 95 % (95-98) 07/15/17 19:10 PT/INR, D-dimer PT 39.6 Seconds (9.4-12.1) H 07/26/17 05:19 Consult Discharge Plan - Plan Referrals: Barbra Juarez MD [Primary Care Provider] - Prince Wolf MD [Family Provider] -
--- NOTE | 2017-07-27 09:03 | Internal Med Progress Note ---
Date of Encounter: 07/27/17 Time of Encounter: 07:30 - Assessment and plan (1) Acute respiratory failure with hypoxia Current Visit: Yes Status: Acute Assessment and plan: Continue oxygen supplementation. Appears to be oxygenating OK despite pleural effusion. (2) Pleural effusion Current Visit: Yes Status: Acute Assessment and plan: Appreciate pulmonary input. At this point we have not pursued repeat CT. Will need further discussion with family as she cannot sit up for thoracentesis. (3) Acute metabolic encephalopathy Current Visit: Yes Status: Acute Assessment and plan: Seems more comfortable at this time. (4) Diabetes mellitus type 2 in obese Current Visit: No Status: Chronic Assessment and plan: Blood sugar elevated now that tube feeds started. Will adjust insulin treatment. (5) MRSA (methicillin resistant Staphylococcus aureus) infection Current Visit: Yes Status: Acute Assessment and plan: On IV Vancomycin. Monitoring temperature curve. (6) MRSA bacteremia Current Visit: Yes Status: Acute Assessment and plan: - Persistent MRSA bacteremia. -Positive blood cultures on 07/09, 07/10, 07/12, 07/14 for MRSA - Blood cultures drawn on 07/16 and 07/17 and 07/18 no growth final. - Has been on vancomycin with goal trough of 15-20. Will likely require up to 6 weeks of abx. ID on board. PICC line placed - No obvious source identified. - Sacral decubitus ulcers being evaluated and changed per wound care - TTE and GILBERTO negative for vegetations for possible endocarditis. - AFebrile overnight, vitals unremarkable. No white count - CT scan results 07/18/17 showing bilateral pleural effusions, interlobular septal thickening of lungs with ground glass opacities, mild ascites, high attenuation material within the gallbladder with mild distention, colonic diverticulosis without diverticulitis. -Bone scan revealed degenerative uptake of right hip possibly degenerative in nature versus infectious. Plan - Continue vancomycin for a total of 6 weeks, per ID - Continue Zosyn coverage for possible aspiration pneumonia - Palliative consulted, code status changed to [id number] - Contact precautions. - (7) Cerebrovascular accident (CVA) due to bilateral embolism of anterior cerebral arteries Current Visit: Yes Status: Acute Assessment and plan: Continue supportive care. (8) Chronic kidney disease (CKD) stage G3a/A3, moderately decreased glomerular filtration rate (GFR) between 45-59 mL/min/1.73 square meter and albuminuria creatinine ratio greater than 300 mg/g Current Visit: Yes Status: Acute Assessment and plan: - Stage III per chart review. - BUN/Cr of 14.1.11 this AM - Appears to be at baseline Plan - Monitor for fluid status - Avoid nephrotoxic agents - Continue vancomycin as benefit outweighs risk. Monitor and renally dose per pharmacy with goal trough of 15-20. (9) CHF (congestive heart failure) Current Visit: Yes Status: Chronic Assessment and plan: Continue diuresis at this time. Qualifiers: Congestive heart failure type: systolic Congestive heart failure chronicity : acute on chronic Qualified Code(s): I50.23 - Acute on chronic systolic ( congestive) heart failure (10) COPD (chronic obstructive pulmonary disease) Current Visit: Yes Status: Chronic Assessment and plan: Stable Qualifiers: COPD type: unspecified COPD Qualified Code(s): J44.9 - Chronic obstructive pulmonary disease, unspecified (11) Afib Current Visit: No Status: Chronic Assessment and plan: No issues at this time. Qualifiers: Atrial fibrillation type: paroxysmal Qualified Code(s): I48.0 - Paroxysmal atrial fibrillation (12) CAD (coronary artery disease) Current Visit: No Status: Chronic Assessment and plan: Chronic issue. Has nitro patch. Qualifiers: Coronary Disease-Associated Artery/Lesion type: [place] artery [place] vs. transplanted heart: [place] heart Associated angina: without angina Qualified Code(s): I25.10 - Atherosclerotic heart disease of [place] coronary artery without angina pectoris - Subjective Interval history: Ms New is currently admitted for MRSA bacteremia and CVAs. She remains moderate to high risk due to potential for worsening clinical status. Ms New is resting comfortably. No fever last night. Still uncomfortable with any movement. Tolerating tube feeds. - Constitutional Vitals: Temp Pulse Resp BP Pulse Ox 98.2 F 87 20 100/67 97 07/27/17 07:38 07/27/17 07:38 07/27/17 07:38 07/27/17 07:38 07/27/17 07:38 General appearance: Present: A&O X 0, obese - Head Head exam: Present: normocephalic - Eye Eye exam: Present: conjuntiva pink - ENT ENT exam: Present: mucous membranes dry - Respiratory Respiratory exam: Present: decreased breath sounds. Absent: rhonchi, wheezes - Cardiovascular Cardiovascular exam: Present: RRR. Absent: tachycardia - GI/Abdominal GI/Abdominal exam: Present: soft. Absent: tenderness - Extremities Exam Extremities exam: Present: pedal edema, warm. Absent: tenderness - Neurological Exam Neurological exam: Absent: alert - Skin Skin exam: Present: warm. Absent: rash Internal Medicine: Result - Labs CBC & Chem 7: 07/27/17 08:30 07/27/17 08:30 - ABG Interpretation ABG results: ABG ABG pH 7.44 pH Units (7.32-7.45) 07/15/17 19:10 ABG pCO2 48 mmHg (35-45) H 07/15/17 19:10 ABG pO2 73 mmHg (85-104) L 07/15/17 19:10 ABG O2 Saturation 95 % (95-98) 07/15/17 19:10 PT/INR, D-dimer PT 39.6 Seconds (9.4-12.1) H 07/26/17 05:19 - VTE Documentation of Mechanical Device: Intermittent pneumatic compression device Consult Discharge Plan - Plan Referrals: Barbra Juarez MD [Primary Care Provider] - Prince Wolf MD [Family Provider] -
[2017-07-27 09:09] LABS: INR 2.1; Prothrombin Time 23.4 Seconds (9.4-12.1)
[2017-07-27 09:12] LABS: Hematocrit 25.9 % (35.3-44.9); Hemoglobin 7.6 g/dL (11.5-15.4); Mean Corpuscular HGB Conc 29.3 g/dL (31.6-35.5); Mean Corpuscular Hemoglobin 27.1 pg (28.0-33.3); Mean Corpuscular Volume 92.5 fL (83.0-100.0); Mean Platelet Volume 9.6 fL (9.4-12.4); Platelet Count 209 K/mcL (140-400); Red Cell Distribution Width 17.4 % (11.5-14.5)
[2017-07-27 09:25] LABS: Calcium 7.4 mg/dL (8.6-10.3); Magnesium 1.9 mg/dL (1.6-2.6); Potassium 4.2 mEq/L (3.5-5.1)
[2017-07-27] MEDS: Aspirin 81 MG TAB.CHEW PO SCH (09:30)
[2017-07-27] MEDS: Pantoprazole 40 MG VIAL IVP SCH (09:30)
[2017-07-27] MEDS: Nitroglycerin 0.4 MG PATCH.TD24 TD SCH (09:30)
[2017-07-27] MEDS: *HR* Amiodarone 200 MG TABLET GTUBE SCH (09:30)
[2017-07-27] MEDS: Lactobacillus 1 EACH CAP.SPRINK PO SCH (09:30)
[2017-07-27] MEDS: Insulin LISPRO 300 UNITS/3 ML VIAL SQ SCH ×3 (09:31→18:53)
[2017-07-27] MEDS: Nystatin SUSP 5 ML UD.LIQ PO SCH ×3 (09:32→21:38)
[2017-07-27] MEDS: Furosemide 40 MG/4 ML VIAL IVP SCH ×2 (09:33→16:23)
[2017-07-27] MEDS ORDERED: Vancomycin 1 EACH in EMPTY BAG 1 EACH IVPB SCH (10:00)
[2017-07-27] MEDS: Silvasorb 44.4 ML TUBE TP SCH (10:04)
[2017-07-27] MEDS: Vancomycin 1,250 MG in D5% in Water 250 ML IVPB SCH (15:28)
[2017-07-27] MEDS: Acetaminophen 650 MG RECTAL SUPP RC PRN (16:24)
[2017-07-27] MEDS ORDERED: MORPHINE SUL Oral CONC 10 MG/0.5 ML ORAL.SYG GTUBE PRN (16:30)
[2017-07-27] MEDS ORDERED: Ibuprofen 400 MG TABLET PO ONE (17:54)
[2017-07-27] MEDS ORDERED: *HR* Warfarin 1 MG TABLET PO ONE (18:00)
[2017-07-27] MEDS: Insulin DETEMIR 100 UNIT/ML X5UNITS SQ SCH (21:37)
[2017-07-27] MEDS: Bisacodyl 10 MG RECTAL SUPPOSITORY RC SCH (21:38)
[2017-07-28] MEDS: Metoclopramide 10 MG/2 ML VIAL IVP SCH ×3 (00:26→12:15)
[2017-07-28] MEDS: Acetaminophen 650 MG RECTAL SUPP RC PRN ×2 (00:26→06:41)
[2017-07-28] MEDS: *HR* LORazepam 2 MG/ML VIAL IVP SCH (00:35)
[2017-07-28] MEDS: Insulin LISPRO 300 UNITS/3 ML VIAL SQ SCH ×3 (00:37→12:14)
[2017-07-28 04:42] LABS: Hematocrit 24.6 % (35.3-44.9); Hemoglobin 7.3 g/dL (11.5-15.4); Mean Corpuscular HGB Conc 29.7 g/dL (31.6-35.5); Mean Corpuscular Hemoglobin 27.3 pg (28.0-33.3); Mean Corpuscular Volume 92.1 fL (83.0-100.0); Mean Platelet Volume 9.9 fL (9.4-12.4); Platelet Count 213 K/mcL (140-400); Red Blood Count 2.67 M/mcL (3.82-4.97); Red Cell Distribution Width 17.3 % (11.5-14.5)
[2017-07-28 04:45] LABS: INR 1.8; Prothrombin Time 19.1 Seconds (9.4-12.1)
[2017-07-28] MEDS: Nystatin SUSP 5 ML UD.LIQ PO SCH ×2 (07:24→13:26)
[2017-07-28 08:54] LABS: Calcium 7.5 mg/dL (8.6-10.3); Potassium 4.4 mEq/L (3.5-5.1)
--- NOTE | 2017-07-28 09:33 | Palliative Progress Note ---
<Martha Haider-Adelina - Last Filed: 07/28/17 09:28> Date of Encounter: 07/28/17 Time of Encounter: 07:40 - Assessment and plan (1) Goals of care, counseling/discussion Current Visit: Yes Status: Acute Assessment and plan: Current code status is DNR-CCA and DNI. Daughter is at bedside. Daughter continues to hope that the tube feedings will improve the patient's mental status and overall health, but she admits that she sees her mom "going the other direction". Daughter is unsure how long she wants the patient on the tube feeding. She would like to wait to speak with the treatment team. Palliative team will continue to follow. - Time Spent With Patient Total time spent is greater than 50% in coordination of care (as documented) at patient's floor/unit and/or counseling patient: 25 - 35 minutes - Subjective Interval history: Patient seen and examined at bedside this morning. Daughter is at the bedside at this time. Patient is sleeping and resting comfortably. Daughter asked that I don't disturb her. She continues to receive tube feedings via [place]. Per daughter, the patient remains altered and that she had a "rough night". Overnight, patient was febrile. Spoke briefly with the daughter about her expectations for the patient. The daughter stated that she thought her mom would improve with the tube feeding but "it looks like she's going in the other direction." I asked the daughter how long she wanted the tube feeding to remain and the daughter responded with "I don't know." - Constitutional Vitals: Abnormal lab results RBC 2.67 M/mcL (3.82-4.97) L 07/28/17 03:54 Hgb 7.3 g/dL (11.5-15.4) L 07/28/17 03:54 Hct 24.6 % (35.3-44.9) L 07/28/17 03:54 MCH 27.3 pg (28.0-33.3) L 07/28/17 03:54 MCHC 29.7 g/dL (31.6-35.5) L 07/28/17 03:54 RDW 17.3 % (11.5-14.5) H 07/28/17 03:54 Nucleated RBCs/100 WBC 0.3 /100 WBC (0) H 07/20/17 06:15 PT 19.1 Seconds (9.4-12.1) H 07/28/17 03:54 APTT 56.0 Seconds (26.0-36.0) H 07/06/17 05:59 ABG pCO2 48 mmHg (35-45) H 07/15/17 19:10 ABG pO2 73 mmHg (85-104) L 07/15/17 19:10 ABG HCO3 33 mEq/L (21-27) H 07/15/17 19:10 ABG Total CO2 34 mEq/L (20-26) H 07/15/17 19:10 ABG Base Excess 7 mEq/L (-2 to 3) H 07/15/17 19:10 Sodium 134 mEq/L (136-145) L 07/28/17 03:54 Chloride 94 mEq/L (98-107) L 07/28/17 03:54 Carbon Dioxide 34 mEq/L (23-29) H 07/28/17 03:54 BUN 31 mg/dL (8-23) H 07/28/17 03:54 Creatinine 2.33 mg/dL (0.60-1.20) H 07/28/17 03:54 Est GFR ( Amer) 25 (> 60) L 07/28/17 03:54 Est GFR (Non-Af Amer) 20 (> 60) L 07/28/17 03:54 Glucose 266 mg/dL (70-105) H 07/28/17 03:54 POC Glucose 298 (58-89) H 07/28/17 05:31 Hemoglobin A1c 7.8 % (-5.6) H 07/08/17 00:55 Calcium 7.5 mg/dL (8.6-10.3) L 07/28/17 03:54 Phosphorus 2.4 mg/dL (2.7-4.5) L 07/26/17 05:19 AST 8 Units/L (13-39) L 07/16/17 04:31 Alkaline Phosphatase 32 Units/L (34-104) L 07/16/17 04:31 Serum Total Protein 5.7 g/dL (6.4-8.9) L 07/16/17 04:31 Albumin 2.0 g/dL (3.5-5.7) L 07/16/17 04:31 Globulin 3.7 g/dL (2.4-3.5) H 07/16/17 04:31 Albumin/Globulin Ratio 0.5 (1.1-2.2) L 07/16/17 04:31 Cholesterol 210 mg/dL (< 200) H 07/06/17 05:59 LDL Cholesterol, Calc 145 mg/dL (0-99) H 07/06/17 05:59 HDL Cholesterol 38 mg/dL (40-59) L 07/06/17 05:59 Cholesterol/HDL Ratio 5.5 (0-4.9) H 07/06/17 05:59 Urine Blood Trace (Negative) H 07/15/17 13:20 Ur Leukocyte Esterase Trace (Negative) H 07/15/17 13:20 Urine Microscopic RBC 3-5 per hpf (0-3) H 07/15/17 13:20 Urine Microscopic WBC 3-5 per hpf (0-3) H 07/15/17 13:20 Ur Squamous Epith Cells Moderate per lpf (None-Few) H 07/15/17 13:20 Urine Yeast Few per hpf (None Seen) H 07/15/17 13:20 Ur Culture Indicated? YES (NO) A 07/15/17 13:20 Vancomycin Trough 32.3 mcg/mL (10-20) H* 07/27/17 08:30 Staphylococcus sp PCR DETECTED (Not Detect) A 07/14/17 07:56 Staph aureus (PCR) DETECTED (Not Detect) A 07/14/17 07:56 mecA-Methicil Res Gene DETECTED (Not Detect) A 07/14/17 07:56 General appearance: Absent: febrile, no acute distress - Head Head exam: Present: atraumatic - Neck Neck exam: Present: normal inspection. Absent: lymphadenopathy, tenderness - Respiratory Respiratory exam: Present: decreased breath sounds. Absent: accessory muscle use, respiratory distress, rhonchi, wheezes, tachypnea - Cardiovascular Cardiovascular exam: Present: RRR, +S1, +S2. Absent: bradycardia, rubs, tachycardia - GI/Abdominal GI/Abdominal exam: Present: soft. Absent: distended, tenderness - Extremities Exam Extremities exam: Present: pedal edema. Absent: calf tenderness, joint swelling Additional comments: Bilateral upper and lower extremities are swollen. +2 Pitting edema in bilateral lower extremities - Neurological Exam Neurological exam: Present: altered. Absent: alert, oriented X3, facial droop Palliative Quality Palliative Quality: Screen for Code Status: Yes, Screen for Goals of Care: Yes, Screen for Pain: Yes, If Pain Regimen Started, Initiate Bowel Regimen: Yes, Screen for Nausea/Vomitting: Yes Code Status: 07/16/17 14:43 DNR [Resuscitation Status: Active] [RES] Routine Comment: Resuscitation Status: [id number] - Labs CBC & Chem 7: 07/28/17 03:54 07/28/17 03:54 Labs: Laboratory Results - last 24 hr 07/26/17 07/27/17 07/27/17 16:26 07:41 08:30 WBC RBC Hgb Hct MCV MCH MCHC RDW Plt Count MPV PT INR Sodium Potassium Chloride Carbon Dioxide BUN Creatinine Est GFR ( Amer) Est GFR (Non-Af Amer) BUN/Creatinine Ratio Glucose POC Glucose 234 H 252 H Calculated Osmolality Calcium Magnesium Vancomycin Trough 32.3 H* 07/27/17 07/28/17 07/28/17 17:40 00:36 03:54 WBC RBC Hgb Hct MCV MCH MCHC RDW Plt Count MPV PT 19.1 H INR 1.8 Sodium Potassium Chloride Carbon Dioxide BUN Creatinine Est GFR ( Amer) Est GFR (Non-Af Amer) BUN/Creatinine Ratio Glucose POC Glucose 271 H 324 H Calculated Osmolality Calcium Magnesium Vancomycin Trough 07/28/17 07/28/17 07/28/17 03:54 03:54 05:31 WBC 8.5 RBC 2.67 L Hgb 7.3 L Hct 24.6 L MCV 92.1 MCH 27.3 L MCHC 29.7 L RDW 17.3 H Plt Count 213 MPV 9.9 PT INR Sodium 134 L Potassium 4.4 Chloride 94 L Carbon Dioxide 34 H BUN 31 H Creatinine 2.33 H Est GFR ( Amer) 25 L Est GFR (Non-Af Amer) 20 L BUN/Creatinine Ratio 13 Glucose 266 H POC Glucose 298 H Calculated Osmolality 294 Calcium 7.5 L Magnesium 2.0 Vancomycin Trough - Impressions Impressions Chest X-Ray 07/28/17 01:42 IMPRESSION: 1. Dense consolidation throughout the left lung and a suspected large left pleural effusion. 2. Smaller right pleural effusion and suspected pulmonary vascular congestion. D/ / 07/28/2017 06:58:40 Rickey Mejia MD / rik Interpreting Provider: Rickey Mejia MD - ABG Interpretation ABG results: ABG ABG pH 7.44 pH Units (7.32-7.45) 07/15/17 19:10 ABG pCO2 48 mmHg (35-45) H 07/15/17 19:10 ABG pO2 73 mmHg (85-104) L 07/15/17 19:10 ABG O2 Saturation 95 % (95-98) 07/15/17 19:10 PT/INR, D-dimer PT 19.1 Seconds (9.4-12.1) H 07/28/17 03:54 Consult Discharge Plan - Plan Referrals: Barbra Juarez MD [Primary Care Provider] - Prince Wolf MD [Family Provider] - <Ravindra Rodriguez - Last Filed: 07/28/17 10:51> Date of Encounter: 07/28/17 - Assessment and plan (1) Arthritis Current Visit: Yes Status: Acute (2) Failure to thrive in adult Current Visit: Yes Status: Acute (3) Goals of care, counseling/discussion Current Visit: Yes Status: Acute (4) Altered mental status Current Visit: Yes Status: Acute Qualifiers: Altered mental status type: unspecified Qualified Code(s): R41.82 - Altered mental status, unspecified - Time Spent With Patient Total time spent is greater than 50% in coordination of care (as documented) at patient's floor/unit and/or counseling patient: - Constitutional Vitals: Abnormal lab results RBC 2.67 M/mcL (3.82-4.97) L 07/28/17 03:54 Hgb 7.3 g/dL (11.5-15.4) L 07/28/17 03:54 Hct 24.6 % (35.3-44.9) L 07/28/17 03:54 MCH 27.3 pg (28.0-33.3) L 07/28/17 03:54 MCHC 29.7 g/dL (31.6-35.5) L 07/28/17 03:54 RDW 17.3 % (11.5-14.5) H 07/28/17 03:54 Nucleated RBCs/100 WBC 0.3 /100 WBC (0) H 07/20/17 06:15 PT 19.1 Seconds (9.4-12.1) H 07/28/17 03:54 APTT 56.0 Seconds (26.0-36.0) H 07/06/17 05:59 ABG pCO2 48 mmHg (35-45) H 07/15/17 19:10 ABG pO2 73 mmHg (85-104) L 07/15/17 19:10 ABG HCO3 33 mEq/L (21-27) H 07/15/17 19:10 ABG Total CO2 34 mEq/L (20-26) H 07/15/17 19:10 ABG Base Excess 7 mEq/L (-2 to 3) H 07/15/17 19:10 Sodium 134 mEq/L (136-145) L 07/28/17 03:54 Chloride 94 mEq/L (98-107) L 07/28/17 03:54 Carbon Dioxide 34 mEq/L (23-29) H 07/28/17 03:54 BUN 31 mg/dL (8-23) H 07/28/17 03:54 Creatinine 2.33 mg/dL (0.60-1.20) H 07/28/17 03:54 Est GFR ( Amer) 25 (> 60) L 07/28/17 03:54 Est GFR (Non-Af Amer) 20 (> 60) L 07/28/17 03:54 Glucose 266 mg/dL (70-105) H 07/28/17 03:54 POC Glucose 298 (58-89) H 07/28/17 05:31 Hemoglobin A1c 7.8 % (-5.6) H 07/08/17 00:55 Calcium 7.5 mg/dL (8.6-10.3) L 07/28/17 03:54 Phosphorus 2.4 mg/dL (2.7-4.5) L 07/26/17 05:19 AST 8 Units/L (13-39) L 07/16/17 04:31 Alkaline Phosphatase 32 Units/L (34-104) L 07/16/17 04:31 Serum Total Protein 5.7 g/dL (6.4-8.9) L 07/16/17 04:31 Albumin 2.0 g/dL (3.5-5.7) L 07/16/17 04:31 Globulin 3.7 g/dL (2.4-3.5) H 07/16/17 04:31 Albumin/Globulin Ratio 0.5 (1.1-2.2) L 07/16/17 04:31 Cholesterol 210 mg/dL (< 200) H 07/06/17 05:59 LDL Cholesterol, Calc 145 mg/dL (0-99) H 07/06/17 05:59 HDL Cholesterol 38 mg/dL (40-59) L 07/06/17 05:59 Cholesterol/HDL Ratio 5.5 (0-4.9) H 07/06/17 05:59 Urine Blood Trace (Negative) H 07/15/17 13:20 Ur Leukocyte Esterase Trace (Negative) H 07/15/17 13:20 Urine Microscopic RBC 3-5 per hpf (0-3) H 07/15/17 13:20 Urine Microscopic WBC 3-5 per hpf (0-3) H 07/15/17 13:20 Ur Squamous Epith Cells Moderate per lpf (None-Few) H 07/15/17 13:20 Urine Yeast Few per hpf (None Seen) H 07/15/17 13:20 Ur Culture Indicated? YES (NO) A 07/15/17 13:20 Vancomycin Trough 32.3 mcg/mL (10-20) H* 07/27/17 08:30 Staphylococcus sp PCR DETECTED (Not Detect) A 07/14/17 07:56 Staph aureus (PCR) DETECTED (Not Detect) A 07/14/17 07:56 mecA-Methicil Res Gene DETECTED (Not Detect) A 07/14/17 07:56 - Attending Attestation I examined this patient and my medical decision-making was reviewed with the Resident Physician. I agree with the documented findings, disposition and treatment plan as described except to the extent set forth below. Palliative Quality Code Status: 07/16/17 14:43 DNR [Resuscitation Status: Active] [RES] Routine Comment: Resuscitation Status: [id number] - Labs CBC & Chem 7: 07/28/17 03:54 07/28/17 03:54 Labs: Laboratory Results - last 24 hr 07/26/17 07/27/17 07/27/17 16:26 07:41 17:40 WBC RBC Hgb Hct MCV MCH MCHC RDW Plt Count MPV PT INR Sodium Potassium Chloride Carbon Dioxide BUN Creatinine Est GFR ( Amer) Est GFR (Non-Af Amer) BUN/Creatinine Ratio Glucose POC Glucose 234 H 252 H 271 H Calculated Osmolality Calcium Magnesium 07/28/17 07/28/17 07/28/17 00:36 03:54 03:54 WBC 8.5 RBC 2.67 L Hgb 7.3 L Hct 24.6 L MCV 92.1 MCH 27.3 L MCHC 29.7 L RDW 17.3 H Plt Count 213 MPV 9.9 PT 19.1 H INR 1.8 Sodium Potassium Chloride Carbon Dioxide BUN Creatinine Est GFR ( Amer) Est GFR (Non-Af Amer) BUN/Creatinine Ratio Glucose POC Glucose 324 H Calculated Osmolality Calcium Magnesium 07/28/17 07/28/17 03:54 05:31 WBC RBC Hgb Hct MCV MCH MCHC RDW Plt Count MPV PT INR Sodium 134 L Potassium 4.4 Chloride 94 L Carbon Dioxide 34 H BUN 31 H Creatinine 2.33 H Est GFR ( Amer) 25 L Est GFR (Non-Af Amer) 20 L BUN/Creatinine Ratio 13 Glucose 266 H POC Glucose 298 H Calculated Osmolality 294 Calcium 7.5 L Magnesium 2.0 - Impressions Impressions Chest X-Ray 07/28/17 01:42
[2017-07-28] MEDS: Nitroglycerin 0.4 MG PATCH.TD24 TD SCH (09:54)
[2017-07-28] MEDS: Furosemide 40 MG/4 ML VIAL IVP SCH (09:54)
[2017-07-28] MEDS: Pantoprazole 40 MG VIAL IVP SCH (10:23)
[2017-07-28] MEDS: *HR* Amiodarone 200 MG TABLET GTUBE SCH (10:23)
[2017-07-28] MEDS: Lactobacillus 1 EACH CAP.SPRINK PO SCH (10:23)
[2017-07-28] MEDS: Silvasorb 44.4 ML TUBE TP SCH (11:07)
--- NOTE | 2017-07-28 11:40 | Infectious Disease Progress No ---
Date of Encounter: 07/28/17 Time of Encounter: 11:35 - Assessment and Plan (1) Fever Current Visit: Yes Status: Acute The patient has been febrile for the last 48 hours with Tmax 102.6. Etiology unclear. Concern for aspiration given that the patient's Zosyn was stopped and she started getting tube feeds recently. CXR shows dense consolidation throughout the left lung and a suspected large left pleural effusion. Blood cultures drawn 07/26/17 are NGTD x 2 sets. Re-start Zosyn 3.375 grams IV Q8H. Fevers seem to have started after Zosyn was stopped. Check RIP. The patient is unable to provide any ROS so I am not sure if she is having any URI symptoms. Qualifiers: Fever type: unspecified Qualified Code(s): R50.9 - Fever, unspecified (2) MRSA bacteremia Current Visit: Yes Status: Acute Causative organism: MRSA. Source not clear. The patient did have a femur MRI that showed moderate volume of fluid in the right greater trochanteric bursa, but no evidence of septic arthritis. Joint aspiration negative for septic arthritis as well. The patient had a CT of the chest, abdomen, and pelvis, as well as a nuclear medicine bone scan. No definitive source of the MRSA bacteremia, but the patient was noted to have significant bilateral pleural effusions. Additionally, review of the bone scan shows increased uptake in the right hip per the hospitalist team's review of the imaging. Radiology recommends WBC scan to further evaluate, but recommend holding off for now as it likely won't change the course of the patient's treatment. Blood cultures drawn 07/08/17 grew MRSA, 2/2 sets. Additional blood cultures drawn 07/09/17 were positive 2/2 sets as well. Repeat blood cultures drawn 07/10/17 x 1 set and 07/12/17 x 1 set are also positive. Additional blood cultures drawn 07/14/17 are positive 1/2 sets. Repeat blood cultures drawn 07/16/17 are negative x 2 sets. Additional blood cultures drawn 07/17/17 are negative x 2 sets. Repeat blood cultures drawn 07/26/17 are NGTD x 2 sets. The patient has one major and one minor Modified Lindsay's Criteria. TTE negative for vegetations. No endocarditis stigmata noted on exam. GILBERTO negative. CODY of Vanc is 1. Etiology of persistent bacteremia not clear, but the last positive set of blood cultures were drawn <48 hours after the patient had therapeutic Vanc trough, which could also be contributing to this. Most recent set of blood cultures are negative. Continue Vancomycin IV. Pharmacy to dose. Goal trough ~15. Vanc troughs have been elevated. Random Vanc level today 28. The patient's renal function is worsening. We will need to monitor closely. Dosing discussed with pharmacy. If the patient's family wishes to continue with IV antibiotics, we may have to consider switching her to Daptomycin, but will hold off for now until exact plan of care can be discussed with the family by the primary team. Duration of treatment depends on the clinical picture, but likely 6 weeks due to the persistent bacteremia and unclear source. Monitor renal function and for drug toxicity and dose-adjust antibiotics. (3) Altered mental status Current Visit: Yes Status: Acute Likely secondary to acute lacunar infarct and worsened by infectious process and medications. CT head negative, but MRI of the brain showed multiple small infarcts in the bilateral mcdowell radiata and centrum semiovale compatible with bilateral acute lacunar infarcts. Neurology consulted. CT head and brain MRI repeated 07/16/17, but do not show any new findings. Anxiety and pain medication management per the primary team. Continue to monitor closely. Qualifiers: Altered mental status type: unspecified Qualified Code(s): R41.82 - Altered mental status, unspecified (4) Lacunar infarct, acute Current Visit: Yes Status: Acute (5) Lipoma Current Visit: Yes Status: Acute Location: Right thigh. CT scan of the right hip showed a partially visualized fat density mass in the posterior aspect of the proximal right thigh with thin internal septations, most likely representing a lipoma or benign atypical lipomatous tumor. MRI of the right femur again showed findings consistent with lipoma vs. benign atypical lipomatous tumor with significant mass effect the hamstring musculature. Qualifiers: Lipoma location: lower extremity Laterality: right Qualified Code(s): D17.23 - Benign lipomatous neoplasm of skin and subcutaneous tissue of right leg (6) Supratherapeutic INR Current Visit: Yes Status: Acute Improved. Further workup and evaluation per the primary team. (7) Chronic kidney disease (CKD) stage G3a/A3, moderately decreased glomerular filtration rate (GFR) between 45-59 mL/min/1.73 square meter and albuminuria creatinine ratio greater than 300 mg/g Current Visit: Yes Status: Acute Serum creatinine 2.3 this morning. Likely secondary to nephrotoxic medications in the setting of acute illness. Continue to trend. Strict I & O's. Dose-adjust antibiotics as needed. Avoid nephrotoxins as able. (8) Chronic pain syndrome Current Visit: Yes Status: Acute Patient has had multiple MRIs and CT scans of the cervical, lumbar, thoracic spine and hips which revealed degenerative arthritis with no acute infectious process. (9) Arthritis Current Visit: Yes Status: Acute (10) Diabetes mellitus type 2 in obese Current Visit: No Status: Chronic Recommend aggressive glucose monitoring and control. Management per the primary team. (11) Right hip pain Current Visit: Yes Status: Acute MRI of the right femur showed findings consistent with a benign lipoma vs. atypical lipomatous tumor with significant mass effect on the hamstring musculature. There was also a moderate volume of fluid in the right greater trochanteric bursa. Ortho consulted and appreciate their recommendations. Status post right hip bursa aspiration. Did not appear to be pus. Gram stain and culture negative. Status post nuclear medicine bone scan that is concerning for increased uptake in the right hip and pelvis per the hospitalist team's review of the films. Radiology recommends WBC scan. Recommend holding off on WBC scan for now as it likely will not change the course of the patient's treatment. Pain management per the primary team. (12) HCAP (healthcare-associated pneumonia) Current Visit: Yes Status: Acute CXR completed 07/08/17 showed findings suspicious for bibasilar atelectasis or PNA. Ct chest showed dense consolidations to the bilateral lower lobes and to the left upper love with complete collapse of the left upper lobe felt most likely related to dependent/compressive atelectasis. CT findings not indicative of PNA, but given the patient's altered mental status , she is at risk for silent aspiration. CXR 07/22/17 showed total opacification of the left hemithorax representing atelectasis of the left lung with a left pleural effusion. Completed 10 days of Zosyn last week, but began spiking fevers again over the weekend. Repeat CXR shows dense consolidation throughout the left lung and a suspected large left pleural effusion. (13) Shook catheter in place Current Visit: Yes Status: Acute (14) Pleural effusion Current Visit: No Status: Acute Likely secondary to third-spacing. CT chest shows bilateral pleural effusions, large on the left and moderate to large on the right. CXR 07/22/17 shows total opacification of the left hemithroax likely respresenting atelectasis secondary to the pleural effusion. Repeat CXR 07/28/17 shows dense consolidation throughout the left lung and a suspected large left pleural effusion. Likely contributing to the patient's hypoxic episodes when her O2 comes off and her new high-flow O2 requirements. Pulmonology consulted. No plans to drain initially, but may need to consider now that the patient is spiking fevers. Will discuss with the pulmonary team. . - Subjective Interval history: Patient seen and examined. Weekend notes reviewed. Patient began spiking fevers again over the weekend. Repeat blood cultures 07/26/17 are NGTD x 2 sets. Repeat CXR shows re-demonstration of left hemithorax opacification. O2 declining and the patient is requiring high flow O2 to maintain O2 saturations. Dobhoff tube remains in blace with tube feeds infusing with small residuals. Patient remains with altered LOC, currently resting with eyes closed and responds minimally to verbal stimuli. Son and daughter remain at bedside. Infect Dis PN-Objective Data - Labs CBC & Chem 7: 07/28/17 03:54 07/28/17 03:54 Labs: Laboratory Results - last 24 hr 07/27/17 07/28/17 07/28/17 17:40 00:36 03:54 WBC RBC Hgb Hct MCV MCH MCHC RDW Plt Count MPV PT 19.1 H INR 1.8 Sodium Potassium Chloride Carbon Dioxide BUN Creatinine Est GFR ( Amer) Est GFR (Non-Af Amer) BUN/Creatinine Ratio Glucose POC Glucose 271 H 324 H Calculated Osmolality Calcium Magnesium Random Vancomycin 07/28/17 07/28/17 07/28/17 03:54 03:54 03:54 WBC 8.5 RBC 2.67 L Hgb 7.3 L Hct 24.6 L MCV 92.1 MCH 27.3 L MCHC 29.7 L RDW 17.3 H Plt Count 213 MPV 9.9 PT INR Sodium 134 L Potassium 4.4 Chloride 94 L Carbon Dioxide 34 H BUN 31 H Creatinine 2.33 H Est GFR ( Amer) 25 L Est GFR (Non-Af Amer) 20 L BUN/Creatinine Ratio 13 Glucose 266 H POC Glucose Calculated Osmolality 294 Calcium 7.5 L Magnesium 2.0 Random Vancomycin 28 07/28/17 05:31 WBC RBC Hgb Hct MCV MCH MCHC RDW Plt Count MPV PT INR Sodium Potassium Chloride Carbon Dioxide BUN Creatinine Est GFR ( Amer) Est GFR (Non-Af Amer) BUN/Creatinine Ratio Glucose POC Glucose 298 H Calculated Osmolality Calcium Magnesium Random Vancomycin Cultures: Cultures 07/26/17 08:35 Blood Culture - Preliminary Peripheral Venipuncture No growth. 07/26/17 08:30 Blood Culture - Preliminary Peripheral Venipuncture No growth. 07/18/17 04:05 Blood Culture - Final Peripheral Venipuncture No growth. 07/18/17 04:00 Blood Culture - Final Peripheral Venipuncture No growth. 07/22/17 17:05 Urine Culture - Final Urine,Shook Port No growth. 07/17/17 10:03 Blood Culture - Final Peripheral Venipuncture No growth. 07/15/17 13:20 Urine Culture - Final Urine,Shook Port Adelina glabrata 07/16/17 13:51 Blood Culture - Final Peripheral Venipuncture No growth. 07/16/17 13:51 Blood Culture - Final Peripheral Venipuncture No growth. 07/14/17 17:59 Blood Culture - Final Peripheral Venipuncture No growth. 07/14/17 07:56 Blood Culture - Final Peripheral Venipuncture Methicillin Resistant S.aureus 07/15/17 11:27 Gram Stain - Final Left Hip 07/12/17 03:55 Blood Culture - Final Peripheral Venipuncture Methicillin Resistant S.aureus 07/10/17 14:13 Blood Culture - Final Peripheral Venipuncture Methicillin Resistant S.aureus 07/09/17 14:15 Blood Culture - Final Peripheral Venipuncture Methicillin Resistant S.aureus 07/09/17 14:15 Blood Culture - Final Peripheral Venipuncture Methicillin Resistant S.aureus 07/08/17 00:55 Blood Culture - Final Peripheral Venipuncture Methicillin Resistant S.aureus 07/08/17 00:55 Blood Culture - Final Peripheral Venipuncture Methicillin Resistant S.aureus 07/08/17 08:10 Legionella Antigen - Final Urine,Clean Catch 07/08/17 08:10 Streptococcus pneumoniae Antigen (M - Final Urine,Clean Catch Serology 07/17/17 07/15/17 07/14/17 Range/Units 09:15 13:20 07:56 Urine Color Yellow (Yellow) Urine Clarity Clear (Clear) Urine pH 6.0 (5.0-8.0) pH Units Ur Specific Nash 1.011 (1.010-1.025) Urine Protein Negative (Neg-Trace) mg/dL Urine Glucose (UA) Normal (Normal) mg/dL Urine Ketones Negative (Negative) mg/dL Urine Blood Trace H (Negative) Urine Nitrite Negative (Negative) Urine Bilirubin Negative (Negative) Urine Urobilinogen Normal (Normal) mg/dL Ur Leukocyte Esterase Trace H (Negative) Urine Microscopic RBC 3-5 H (0-3) per hpf Urine Microscopic WBC 3-5 H (0-3) per hpf Ur Squamous Epith Cells Moderate H (None-Few) per lpf Urine Bacteria None Seen (None-Few) per hpf Hyaline Casts None Seen (None-Few) per lpf Urine Yeast Few H (None Seen) per hpf Ur Culture Indicated? YES A (NO) A. baumannii (PCR) Not Detected (Not Detect) Chlamy pneumoniae PCR Not Detected (Not Detect) Adenovirus (PCR) Not Detected (Not Detect) B. pertussis DNA (PCR) Not Detected (Not Detect) B.parapertussis DNA PCR Not Detected (Not Detect) Adelina albicans (PCR) Not Detected (Not Detect) C. glabrata (PCR) Not Detected (Not Detect) C. krusei (PCR) Not Detected (Not Detect) C. parapsilosis (PCR) Not Detected (Not Detect) C. tropicalis (PCR) Not Detected (Not Detect) Coronavirus OC43 (PCR) Not Detected (Not Detect) Coronavirus HKU1 (PCR) Not Detected (Not Detect) Coronavirus 229E (PCR) Not Detected (Not Detect) Coronavirus NL63 (PCR) Not Detected (Not Detect) Enterobacteriac sp PCR Not Detected (Not Detect) E. cloacae complex PCR Not Detected (Not Detect) Enterococcus sp PCR Not Detected (Not Detect) E. coli (PCR) Not Detected (Not Detect) H. influenzae (PCR) Not Detected (Not Detect) Human Metapneumovir PCR Not Detected (Not Detect) Influenza A (H1) PCR Not Detected (Not Detect) Influ A (H1N1/09) PCR Not Detected (Not Detect) Influenza A (H3) PCR Not Detected (Not Detect) Influenza A Untype (PCR) Not Detected (Not Detect) Influenza Type B (PCR) Not Detected (Not Detect) Klebsiella oxytoca PCR Not Detected (Not Detect) Klebsiella pneumoniae Not Detected (Not Detect) List. monocytogenes PCR Not Detected (Not Detect) M.pneumoniae DNA (PCR) Not Detected (Not Detect) N. meningitidis (PCR) Not Detected (Not Detect) Parainfluenza 1 (PCR) Not Detected (Not Detect) Parainfluenza 2 (PCR) Not Detected (Not Detect) Parainfluenza 3 (PCR) Not Detected (Not Detect) Parainfluenza 4 (PCR) Not Detected (Not Detect) Proteus species (PCR) Not Detected (Not Detect) RSV (PCR) Not Detected (Not Detect) Entero/Rhino (PCR) Not Detected (Not Detect) Serratia marcescens PCR Not Detected (Not Detect) Staphylococcus sp PCR DETECTED A (Not Detect) Staph aureus (PCR) DETECTED A (Not Detect) mecA-Methicil Res Gene DETECTED A (Not Detect) Streptococcus sp PCR Not Detected (Not Detect) Group A Strep DNA Not Detected (Not Detect) Group B Strep (PCR) Not Detected (Not Detect) Strep pneumoniae (PCR) Not Detected (Not Detect) P. aeruginosa (PCR) Not Detected (Not Detect) Alexa/B-Vanco Res Genes Not Detected (Not Detect) KPC (blaKPC) Detect PCR Not Detected (Not Detect) 07/09/17 07/09/17 07/08/17 Range/Units 14:15 14:15 08:10 Urine Color Dark Yellow (Yellow) Urine Clarity Cloudy A (Clear) Urine pH 6.0 (5.0-8.0) pH Units Ur Specific Nash > 1.030 H (1.010-1.025) Urine Protein 100 H (Neg-Trace) mg/dL Urine Glucose (UA) Normal (Normal) mg/dL Urine Ketones Negative (Negative) mg/dL Urine Blood Trace H (Negative) Urine Nitrite Negative (Negative) Urine Bilirubin Small H (Negative) Urine Urobilinogen Normal (Normal) mg/dL Ur Leukocyte Esterase Negative (Negative) Urine Microscopic RBC 5-15 H (0-3) per hpf Urine Microscopic WBC 30-50 H (0-3) per hpf Ur Squamous Epith Cells Moderate H (None-Few) per lpf Urine Bacteria Few (None-Few) per hpf Hyaline Casts Few (None-Few) per lpf Urine Yeast Moderate H (None Seen) per hpf Ur Culture Indicated? NO (NO) A. baumannii (PCR) Not Detected Not Detected (Not Detect) Chlamy pneumoniae PCR (Not Detect) Adenovirus (PCR) (Not Detect) B. pertussis DNA (PCR) (Not Detect) B.parapertussis DNA PCR (Not Detect) Adelina albicans (PCR) Not Detected Not Detected (Not Detect) C. glabrata (PCR) Not Detected Not Detected (Not Detect) C. krusei (PCR) Not Detected Not Detected (Not Detect) C. parapsilosis (PCR) Not Detected Not Detected (Not Detect) C. tropicalis (PCR) Not Detected Not Detected (Not Detect) Coronavirus OC43 (PCR) (Not Detect) Coronavirus HKU1 (PCR) (Not Detect) Coronavirus 229E (PCR) (Not Detect) Coronavirus NL63 (PCR) (Not Detect) Enterobacteriac sp PCR Not Detected Not Detected (Not Detect) E. cloacae complex PCR Not Detected Not Detected (Not Detect) Enterococcus sp PCR Not Detected Not Detected (Not Detect) E. coli (PCR) Not Detected Not Detected (Not Detect) H. influenzae (PCR) Not Detected Not Detected (Not Detect) Human Metapneumovir PCR (Not Detect) Influenza A (H1) PCR (Not Detect) Influ A (H1N1/09) PCR (Not Detect) Influenza A (H3) PCR (Not Detect) Influenza A Untype (PCR) (Not Detect) Influenza Type B (PCR) (Not Detect) Klebsiella oxytoca PCR Not Detected Not Detected (Not Detect) Klebsiella pneumoniae Not Detected Not Detected (Not Detect) List. monocytogenes PCR Not Detected Not Detected (Not Detect) M.pneumoniae DNA (PCR) (Not Detect) N. meningitidis (PCR) Not Detected Not Detected (Not Detect) Parainfluenza 1 (PCR) (Not Detect) Parainfluenza 2 (PCR) (Not Detect) Parainfluenza 3 (PCR) (Not Detect) Parainfluenza 4 (PCR) (Not Detect) Proteus species (PCR) Not Detected Not Detected (Not Detect) RSV (PCR) (Not Detect) Entero/Rhino (PCR) (Not Detect) Serratia marcescens PCR Not Detected Not Detected (Not Detect) Staphylococcus sp PCR DETECTED A DETECTED A (Not Detect) Staph aureus (PCR) DETECTED A DETECTED A (Not Detect) mecA-Methicil Res Gene DETECTED A DETECTED A (Not Detect) Streptococcus sp PCR Not Detected Not Detected (Not Detect) Group A Strep DNA Not Detected Not Detected (Not Detect) Group B Strep (PCR) Not Detected Not Detected (Not Detect) Strep pneumoniae (PCR) Not Detected Not Detected (Not Detect) P. aeruginosa (PCR) Not Detected Not Detected (Not Detect) Alexa/B-Vanco Res Genes Not Detected N/A (Not Detect) KPC (blaKPC) Detect PCR Not Detected N/A (Not Detect) 07/08/17 Range/Units 00:55 Urine Color (Yellow) Urine Clarity (Clear) Urine pH (5.0-8.0) pH Units Ur Specific Nash (1.010-1.025) Urine Protein (Neg-Trace) mg/dL Urine Glucose (UA) (Normal) mg/dL Urine Ketones (Negative) mg/dL Urine Blood (Negative) Urine Nitrite (Negative) Urine Bilirubin (Negative) Urine Urobilinogen (Normal) mg/dL Ur Leukocyte Esterase (Negative) Urine Microscopic RBC (0-3) per hpf Urine Microscopic WBC (0-3) per hpf Ur Squamous Epith Cells (None-Few) per lpf Urine Bacteria (None-Few) per hpf Hyaline Casts (None-Few) per lpf Urine Yeast (None Seen) per hpf Ur Culture Indicated? (NO) A. baumannii (PCR) Not Detected (Not Detect) Chlamy pneumoniae PCR (Not Detect) Adenovirus (PCR) (Not Detect) B. pertussis DNA (PCR) (Not Detect) B.parapertussis DNA PCR (Not Detect) Adelina albicans (PCR) Not Detected (Not Detect) C. glabrata (PCR) Not Detected (Not Detect) C. krusei (PCR) Not Detected (Not Detect) C. parapsilosis (PCR) Not Detected (Not Detect) C. tropicalis (PCR) Not Detected (Not Detect) Coronavirus OC43 (PCR) (Not Detect) Coronavirus HKU1 (PCR) (Not Detect) Coronavirus 229E (PCR) (Not Detect) Coronavirus NL63 (PCR) (Not Detect) Enterobacteriac sp PCR Not Detected (Not Detect) E. cloacae complex PCR Not Detected (Not Detect) Enterococcus sp PCR Not Detected (Not Detect) E. coli (PCR) Not Detected (Not Detect) H. influenzae (PCR) Not Detected (Not Detect) Human Metapneumovir PCR (Not Detect) Influenza A (H1) PCR (Not Detect) Influ A (H1N1/09) PCR (Not Detect) Influenza A (H3) PCR (Not Detect) Influenza A Untype (PCR) (Not Detect) Influenza Type B (PCR) (Not Detect) Klebsiella oxytoca PCR Not Detected (Not Detect) Klebsiella pneumoniae Not Detected (Not Detect) List. monocytogenes PCR Not Detected (Not Detect) M.pneumoniae DNA (PCR) (Not Detect) N. meningitidis (PCR) Not Detected (Not Detect) Parainfluenza 1 (PCR) (Not Detect) Parainfluenza 2 (PCR) (Not Detect) Parainfluenza 3 (PCR) (Not Detect) Parainfluenza 4 (PCR) (Not Detect) Proteus species (PCR) Not Detected (Not Detect) RSV (PCR) (Not Detect) Entero/Rhino (PCR) (Not Detect) Serratia marcescens PCR Not Detected (Not Detect) Staphylococcus sp PCR DETECTED A (Not Detect) Staph aureus (PCR) DETECTED A (Not Detect) mecA-Methicil Res Gene DETECTED A (Not Detect) Streptococcus sp PCR Not Detected (Not Detect) Group A Strep DNA Not Detected (Not Detect) Group B Strep (PCR) Not Detected (Not Detect) Strep pneumoniae (PCR) Not Detected (Not Detect) P. aeruginosa (PCR) Not Detected (Not Detect) Alexa/B-Vanco Res Genes Not Detected (Not Detect) KPC (blaKPC) Detect PCR Not Detected (Not Detect) - Impressions Impressions Chest X-Ray 07/28/17 01:42 IMPRESSION: 1. Dense consolidation throughout the left lung and a suspected large left pleural effusion. 2. Smaller right pleural effusion and suspected pulmonary vascular congestion. D/ / 07/28/2017 06:58:40 Rickey Mejia MD / rik Interpreting Provider: Rickey Mejia MD Exam - Constitutional Vitals: Temp Pulse Resp BP Pulse Ox 98.7 F 85 17 101/60 95 07/28/17 07:34 07/28/17 07:34 07/28/17 07:34 07/28/17 07:34 07/28/17 07:34 General appearance: no acute distress, obese, no febrile - Head Head exam: Present: atraumatic, normal inspection, normocephalic - Eye Eye exam: Present: normal appearance, PERRL Pupils: Present: normal accommodation - ENT ENT exam: Present: mucous membranes dry - Neck Neck exam: Present: normal inspection - Respiratory Respiratory exam: Present: rhonchi (Throughout). Absent: rales, respiratory distress, wheezes - Cardiovascular Cardiovascular exam: Present: RRR, +S1, +S2 - GI/Abdominal GI/Abdominal exam: Present: normal bowel sounds, soft. Absent: distended, tenderness Additional comments: Shook catheter draining dark yellow urine. - Extremities Exam Extremities exam: Present: pedal edema (1+ BLE, 2+ RUE). Absent: joint swelling , tenderness - Neurological Exam Neurological exam: Present: altered (Minimally responsive to verbal stimuli. Does not follow commands. ) - Skin Skin exam: Present: dry, intact, pallor, warm - VTE Documentation of Mechanical Device: Intermittent pneumatic compression device Consult Discharge Plan - Plan Referrals: Barbra Juarez MD [Primary Care Provider] - Prince Wolf MD [Family Provider] -
[2017-07-28 11:51] VITALS: BP 104/56
--- NOTE | 2017-07-28 13:08 | Discharge Summary ---
<MaxJimmy mckee - Last Filed: 07/28/17 17:16> Date of Encounter: 07/28/17 Time of Encounter: 13:07 - Discharge Diagnosis (1) MRSA bacteremia Priority: Secondary Status: Acute (2) Acute cerebral infarction Priority: Primary Status: Acute (3) Supratherapeutic INR Priority: Secondary Status: Acute (4) Stage II pressure ulcer of buttock Priority: Secondary Status: Acute Qualifiers: Laterality: left Qualified Code(s): L89.322 - Pressure ulcer of left buttock, stage 2 (5) Altered mental status Priority: Secondary Status: Acute Qualifiers: Altered mental status type: unspecified Qualified Code(s): R41.82 - Altered mental status, unspecified (6) Lipoma Priority: Secondary Status: Acute Qualifiers: Lipoma location: lower extremity Laterality: right Qualified Code(s): D17.23 - Benign lipomatous neoplasm of skin and subcutaneous tissue of right leg (7) Lumbar spinal stenosis Priority: Secondary Status: Chronic Qualifiers: Neurogenic claudication status: unspecified Qualified Code(s): M48.061 - Spinal stenosis, lumbar region without neurogenic claudication (8) Chronic kidney disease (CKD) stage G3a/A3, moderately decreased glomerular filtration rate (GFR) between 45-59 mL/min/1.73 square meter and albuminuria creatinine ratio greater than 300 mg/g Priority: Secondary Status: Acute (9) Anemia Priority: Secondary Status: Chronic Qualifiers: Anemia type: unspecified type Qualified Code(s): D64.9 - Anemia, unspecified (10) HCAP (healthcare-associated pneumonia) Priority: Secondary Status: Acute (11) Hypokalemia Priority: Secondary Status: Acute Code(s): E87.6 - Hypokalemia (12) DVT prophylaxis Priority: Secondary Status: Acute - Discharge Medications Home Medications: Albuterol Sulfate [Albuterol Inhaler] 2 puff IH Q6H PRN 05/27/17 [History] Budesonide/Formoterol 80/4.5 [Symbicort 80/4.5] 2 puff IH BID 05/27/17 [History ] Amiodarone [Cordarone] 200 mg PO DAILY tablet 06/06/17 [Rx] Aspirin Enteric Coated [Aspirin EC] 81 mg PO Q48H #0 tablet. 06/20/17 [Rx] Digoxin [Lanoxin] 0.25 mg PO DAILY #30 tablet 06/20/17 [Rx] Furosemide [Lasix] 20 mg PO DAILY #0 tablet 06/20/17 [Rx] Isosorbide MONOnitrate (24 HR) [Imdur] 60 mg PO DAILY #30 tab.er.24h 06/20/17 [ Rx] Lisinopril [Zestril] 5 mg PO DAILY #30 tablet 06/20/17 [Rx] Ranitidine HCl [Heartburn Relief] 150 mg PO BID PRN #0 06/20/17 [Rx] Warfarin [Coumadin] 1.5 mg PO QPM 07/06/17 [History] Allergies/Adverse Reactions: 3 Allergy/AdvReac Type Severity Reaction Status Date / Time No Known Allergies Allergy Verified 07/05/17 13:12 Date of admission: 07/05/17 21:11 Primary care physician: Barbra Juarez MD Consults: 07/05/17 21:19 Consult to Nutrition [CONS] Routine Comment: Consulting Provider: NUTRITION Reason for Dietary Consult: PO Supplementation Other:: Pt. prefers chocolate Boost and would like it mixed w/milk to cut sweetness 07/05/17 21:25 Consult to Wound Care [CONS] Routine Reason for Consult: Patient has decubitus ulcer present on upper left buttock. Please assess and make recommendations for daily wound care. Call Completed: No 07/06/17 08:19 Consult to Occupational Therapy [CONS] Routine Comment: Evaluate, develop and implement POC Reason for Consult: therapy/placement needs Consult to Physical Therapy [CONS] Routine Comment: Evaluate, develop and implement POC Reason for Consult: PT eval 07/08/17 08:44 Consult to Surgery [CONS] Routine Consulting Provider: [facility] Reason for Consult: posterior thigh mass on right Call Completed: Yes 07/08/17 10:26 Consult to Invasive Line Access Team [CONS] Routine Reason for Consult: limited vascular access Line Type: EPIV 07/08/17 15:30 Consult to Neurology [CONS] Routine Consulting Provider: [facility] Reason for Consult: multiple new infarcts Call Completed: No 07/08/17 15:34 Consult to Speech Therapy [CONS] Routine Comment: Evaluate, develop and implement POC Reason for Consult: swallow eval Call Completed: No 07/11/17 11:10 Consult to Infectious Diseases [CONS] Routine Consulting Provider: Infectious [facility] Reason for Consult: MRSA bacteremia Call Completed: Yes 07/15/17 15:04 Consult to Orthopedic Surgery [CONS] Routine Consulting Provider: [facility] Reason for Consult: Right greater trochanter aspiration Call Completed: Yes 07/16/17 13:45 Consult to Palliative Care [CONS] Routine Comment: Consulting Provider: [facility] [place] Reason for Consult: Pt with bilateral CVAs and persistent MRSA bacteremia. Declining. Time Notified: 13:45 Call Completed: Yes 07/21/17 10:33 Consult to Invasive Line Access Team [CONS] Routine Reason for Consult: Picc Line Insertion for vancomycin snf Line Type: PICC 07/23/17 19:27 Consult to Interventional Radiology [CONS] Routine Consulting Provider: Radiology [facility] Reason for Consult: Place Dobhoff (or equivalent) feeding tube Call Completed: No 07/24/17 14:00 Consult to Nutrition [CONS] Routine Comment: Consulting Provider: NUTRITION Reason for Dietary Consult: Tube Feed Start & Manage 07/25/17 15:30 Consult to Pulmonology [CONS] Routine Consulting Provider: [facility] [place] Reason for Consult: Pleural effusion with MRSA bacteremia. Call Completed: Yes Discharging clinician: Jimmy Ryan Anticipated date of discharge: 07/28/17 - Patient Status Disposition: Hospice - Medical Facility Condition: Critical Functional capacity at discharge: bed bound Overall status at discharge: patient is not back to baseline - Discharge Instructions Follow Up With: Barbra Juarez MD [Primary Care Provider] - Prince Wolf MD [Family Provider] - Hospital course: Ms. New is a 77 year old female with a past medical history of COPD, atrial fibrillation, type 2 diabetes, coronary artery disease, CVA, anemia, congestive heart failure, hyperlipidemia presented to the hospital with chief complaint of acute right hip pain. He was recently admitted in May with a complaint of shortness of breath requiring thoracentesis. In the emergency department, vital signs unremarkable. Lab results were significant for baseline anemia 8.9/ 27.6, INR of 8.7, mild hyponatremia at 134, glucose of 296. During course of hospital stay, his condition gradually deteriorated. Workup for right hip pain revealed a large mass in the posterior compartment of the right thigh most likely a lipoma. During course also stay patient began to demonstrate altered mental status. Further workup revealed possible small infarcts in bilateral lacunar infarcts. She was also found to have a possible bilateral lower lobe hospital-acquired pneumonia and was placed on vancomycin and Zosyn. Blood Cultures drawn at that time revealed MRSA bacteremia. An ultrasound revealed left proximal ICA severe stenosis of 60-79%. Her allergy was consulted and recommended aggressive risk factor modification. Return course hospital stay, patient's condition gradually worsened. She was found to have persistent MRSA bacteremia despite vancomycin. Workup for source including CT scan abdomen, pelvis, chest, head revealed no obvious source. Echocardiogram did not reveal any vegetations. Factitious disease was consult that at this time. She did have right hip bursitis tap Which did not reveal growth of any bacteria. Bone scan for a hip revealed degenerative changes. Patient's mental status did not improve to baseline levels she was notably altered with communication being moans of suspected pain. This time palliative care was consult and has been following patient. On 07/06/17 repeat blood cultures were drawn and have been negative for growth. Urine Culture was also negative. Pulmonology was also consulted for concern of infected pleural effusions even recent thoracentesis. However with elevated INR despite fresh frozen plasma surgical intervention was performed. Patient had Dobhoff placed with goal of feeding and increased nutritional intake patient has been tolerating, however her mental status has not improved this time. After long discussion with family and palliative care, family has agreed to pursue a hospice care goal. She will be transferred to hospice service at this time. - Time Spent with Patient Total time spent providing and/or coordinating discharge services: - Constitutional Vitals: Temp Pulse Resp BP Pulse Ox 99.2 F 90 18 104/56 92 07/28/17 11:44 07/28/17 11:44 07/28/17 11:44 07/28/17 11:44 07/28/17 11:44 General appearance: Present: A&O X 0, obese Exam: Gen.: Vitals noted. No acute distress. AAOx0. Resting comfortably in bed. Does not responding to verbal or tactile stimuli HEENT: PERRL/EOMI, oropharynx clear, Normocephalic, atraumatic Cardiac: RRR, no murmur, +S1/S2 Pulmonary: CTA bilaterally, no wheezes, rales or rhonchi, equal chest expansion Abdomen: soft, nontender, BS noted, no guarding MSK: ROM intact, no joint swelling noted Extremities: no BLE edema, nontender calf, no cyanosis or clubbing Neuro: A&Ox0, unable to assess due to mental status. Psych: Appropriate mood and behavior - VTE Documentation of Mechanical Device: Intermittent pneumatic compression device <Jc Thompson - Last Filed: 07/28/17 19:44> Date of Encounter: 07/28/17 - Discharge Diagnosis (1) Acute respiratory failure with hypoxia Priority: Primary Status: Acute (2) Pleural effusion Priority: Secondary Status: Acute (3) Acute metabolic encephalopathy Priority: Secondary Status: Acute (4) Diabetes mellitus type 2 in obese Priority: Secondary Status: Chronic (5) MRSA (methicillin resistant Staphylococcus aureus) infection Priority: Primary Status: Acute (6) MRSA bacteremia Status: Acute (7) Cerebrovascular accident (CVA) due to bilateral embolism of anterior cerebral arteries Priority: Primary Status: Acute (8) Chronic kidney disease (CKD) stage G3a/A3, moderately decreased glomerular filtration rate (GFR) between 45-59 mL/min/1.73 square meter and albuminuria creatinine ratio greater than 300 mg/g Status: Acute (9) CHF (congestive heart failure) Priority: Secondary Status: Chronic Qualifiers: Congestive heart failure type: systolic Congestive heart failure chronicity : acute on chronic Qualified Code(s): I50.23 - Acute on chronic systolic ( congestive) heart failure (10) COPD (chronic obstructive pulmonary disease) Priority: Secondary Status: Chronic Qualifiers: COPD type: unspecified COPD Qualified Code(s): J44.9 - Chronic obstructive pulmonary disease, unspecified (11) Afib Priority: Secondary Status: Chronic Qualifiers: Atrial fibrillation type: paroxysmal Qualified Code(s): I48.0 - Paroxysmal atrial fibrillation (12) CAD (coronary artery disease) Priority: Secondary Status: Chronic Qualifiers: Coronary Disease-Associated Artery/Lesion type: [place] artery [place] vs. transplanted heart: [place] heart Associated angina: without angina Qualified Code(s): I25.10 - Atherosclerotic heart disease of [place] coronary artery without angina pectoris Date of admission: 07/05/17 21:11 Primary care physician: Barbra Juarez MD Consults: 07/05/17 21:19 Consult to Nutrition [CONS] Routine Comment: Consulting Provider: NUTRITION Reason for Dietary Consult: PO Supplementation Other:: Pt. prefers chocolate Boost and would like it mixed w/milk to cut sweetness 07/05/17 21:25 Consult to Wound Care [CONS] Routine Reason for Consult: Patient has decubitus ulcer present on upper left buttock. Please assess and make recommendations for daily wound care. Call Completed: No 07/06/17 08:19 Consult to Occupational Therapy [CONS] Routine Comment: Evaluate, develop and implement POC Reason for Consult: therapy/placement needs Consult to Physical Therapy [CONS] Routine Comment: Evaluate, develop and implement POC Reason for Consult: PT eval 07/08/17 08:44 Consult to Surgery [CONS] Routine Consulting Provider: [facility] Reason for Consult: posterior thigh mass on right Call Completed: Yes 07/08/17 10:26 Consult to Invasive Line Access Team [CONS] Routine Reason for Consult: limited vascular access Line Type: EPIV 07/08/17 15:30 Consult to Neurology [CONS] Routine Consulting Provider: [facility] Reason for Consult: multiple new infarcts Call Completed: No 07/08/17 15:34 Consult to Speech Therapy [CONS] Routine Comment: Evaluate, develop and implement POC Reason for Consult: swallow eval Call Completed: No 07/11/17 11:10 Consult to Infectious Diseases [CONS] Routine Consulting Provider: [facility] [place] Reason for Consult: MRSA bacteremia Call Completed: Yes 07/15/17 15:04 Consult to Orthopedic Surgery [CONS] Routine Consulting Provider: [facility] Reason for Consult: Right greater trochanter aspiration Call Completed: Yes 07/16/17 13:45 Consult to Palliative Care [CONS] Routine Comment: Consulting Provider: [facility] Reason for Consult: Pt with bilateral CVAs and persistent MRSA bacteremia. Declining. Time Notified: 13:45 Call Completed: Yes 07/21/17 10:33 Consult to Invasive Line Access Team [CONS] Routine Reason for Consult: Picc Line Insertion for vancomycin snf Line Type: PICC 07/23/17 19:27 Consult to Interventional Radiology [CONS] Routine Consulting Provider: Radiology [facility] Reason for Consult: Place Dobhoff (or equivalent) feeding tube Call Completed: No 07/24/17 14:00 Consult to Nutrition [CONS] Routine Comment: Consulting Provider: NUTRITION Reason for Dietary Consult: Tube Feed Start & Manage 07/25/17 15:30 Consult to Pulmonology [CONS] Routine Consulting Provider: [facility] Reason for Consult: Pleural effusion with MRSA bacteremia. Call Completed: Yes Hospital course: Ms. New is a 77 year old female - Time Spent with Patient Total time spent providing and/or coordinating discharge services: 28min - Constitutional Vitals: Temp Pulse Resp BP Pulse Ox 99.2 F 90 18 104/56 92 07/28/17 11:44 07/28/17 11:44 07/28/17 11:44 07/28/17 11:44 07/28/17 11:44 - Attending Attestation I examined this patient and my medical decision-making was reviewed with the Resident Physician on 07/28/17. I agree with the documented findings, disposition and treatment plan as described except to the extent set forth below. Ms New has been admitted for R hip pain. She was found to have MRSA bacteremia and R leg lesion - ? lipoma versus other. She also had recurrence of L pleural effusion and bilateral CVAs. She was very encephalopathic and remained in pain. She wound not eat and Dobhoff placed for TF. Despite aggressive treatment she had declined. She is being discharged to hospice. Exam Comfortable Heart reg Diminished lung sounds Plan D/C to hospice.
[2017-07-28] MEDS ORDERED: *HR* Warfarin 1 MG TABLET PO ONE (18:00)
== END 2017-07-28 14:29 | disposition hospice, inpatient (51) | DRG 64 ==
LOC: 3ANU 13:03 → EMEROO 13:03 → 3ANU 19:04 → SUATTDRO 21:11 → 2NENU 07-08 16:53 → 3ANU 07-08 17:07 → 2NENU 07-08 18:15 → 1NENUPED 07-22 12:57 → 2ANU 07-22 19:11
PROVIDERS: ADMIT Hospitalist; ATTEND Internal Medicine

== ENCOUNTER 2017-07-28 13:16 | Inpatient (IN) ==
[2017-07-28] MEDS ORDERED: Haloperidol Oral Conc 10 MG/5 ML UDC PO PRN (14:04)
[2017-07-28] MEDS ORDERED: Albuterol 2.5 MG/3 ML NEBULIZER IH PRN (14:04)
[2017-07-28] MEDS ORDERED: Morphine Oral CONC 5 MG/0.25 ML ORAL.SYG PO PRN (14:04)
[2017-07-28] MEDS ORDERED: *HR* LORazepam 2 MG/ML VIAL IVP PRN (14:04)
[2017-07-28] MEDS ORDERED: *HR* LORazepam Oral Conc 2 MG/ML PO PRN (14:04)
[2017-07-28] MEDS ORDERED: Atropine Sulfate 1% 40 DROP/2 ML BOTTLE SL PRN (14:04)
--- NOTE | 2017-07-28 14:04 | Pallative History & Physical ---
Date of Encounter: 07/28/17 Time of Encounter: 13:00 Assessment and Plan (1) Acute metabolic encephalopathy Status: Acute T factorial in nature undoubtedly due to infection plus CVA. Point in time all aggressive care will be withdrawn. Patient be given for care only at this point. General inpatient hospice (2) Cerebrovascular accident (CVA) due to bilateral embolism of anterior cerebral arteries Status: Acute MRI showing multiple areas of small infarct. Again this will no longer beef this aggressively worked up or treated this will be gentle and patient only hospice (3) Delirium Status: Acute Secondary to infection plus CVA no further treatment other than comfort measures only. (4) Failure to thrive in adult Status: Acute The patient has not responded to tube feeds tube feeds will now be withdrawn care only. (5) Goals of care, counseling/discussion Status: Acute Patient now DNR comfort care, comfort care only general inpatient hospice. (6) MRSA bacteremia Status: Acute She is undoubtedly part of the delirium. Patient is now having all antibiotics withdrawn and the patient switching over to general inpatient hospice for comfort care only. Internal Medicine - H&P: HPI Admitted From: Intrahospital Transfer Plans for Post Hospital Care: Hospice - Home History of present illness: Ms. New is a 77 year old female Who has been admitted for an extended hospitalization for MR MRSA bacteremia of which they have never found a true source, and CVAs. It is had a massive decline in mental status and now is no longer able to eat or drink at all on their own also having renal failure and has had a great deal of difficulty with respiratory failure as well. Shanna has decided not to not pursue any further aggressive care as the patient is not responding to current therapy and was good require another 5 weeks of IV antibiotics in any case which no one seems to feel that she be a little tolerated. His time she is responding to pain, retching her extremity she does respond to the cyst is well controlled with pain medication she is not able to describe it. The patient is stable and comfortable on the current medications. Patient will be transitioned to general inpatient hospice for care secondary to CVA plus bacteremia resulting in an acute delirium. Aggressive care including artificial feeding will be stopped. Past Med Surg Social Fam HX - Past Medical History Medical history: arthritis, atrial fibrillation, CHF, COPD, coronary artery disease, GERD, hyperlipidemia, hypertension, myocardial infarction Psychiatric history: no psych history - Past Surgical History Surgical History: other - Social History Smoking Status: Never smoker Smokeless Tobacco Status: No Alcohol use: none Drug use: none - Family History Mother Living Status: Hx Family Cardiac Disorders: Yes Hx Family Respiratory Disorders: No Hx Family Cancer: No Hx Family GI Disorders: No Hx Family Endocrine Disorder: No Hx Family Neuromuscular Disorders: No Hx Family Neurologic Disorders: No Hx Family HEENT Disorders: No Father Family Member Ethnicity: Non- Living Status: Hx Family Cardiac Disorders: Yes ([place]) Brother Family Member Ethnicity: Non- Living Status: Hx Family Cancer: Yes (Lung) Internal Medicine - H&P: Meds Albuterol Sulfate [Albuterol Inhaler] 2 puff IH Q6H PRN 05/27/17 [History] Budesonide/Formoterol 80/4.5 [Symbicort 80/4.5] 2 puff IH BID 05/27/17 [History ] Amiodarone [Cordarone] 200 mg PO DAILY tablet 06/06/17 [Rx] Aspirin Enteric Coated [Aspirin EC] 81 mg PO Q48H #0 tablet.dr 06/20/17 [Rx] Digoxin [Lanoxin] 0.25 mg PO DAILY #30 tablet 06/20/17 [Rx] Furosemide [Lasix] 20 mg PO DAILY #0 tablet 06/20/17 [Rx] Isosorbide MONOnitrate (24 HR) [Imdur] 60 mg PO DAILY #30 tab.er.24h 06/20/17 [ Rx] Lisinopril [Zestril] 5 mg PO DAILY #30 tablet 06/20/17 [Rx] Ranitidine HCl [Heartburn Relief] 150 mg PO BID PRN #0 06/20/17 [Rx] Warfarin [Coumadin] 1.5 mg PO QPM 07/06/17 [History] 3 Allergy/AdvReac Type Severity Reaction Status Date / Time No Known Allergies Allergy Verified 07/05/17 13:12 ROS unobtainable: due to mental status Palliative Care-Exam - Constitutional General appearance: Present: no acute distress - Head Head Exam: Present: atraumatic, normal inspection - Eye Eye exam: Present: normal appearance - Respiratory Respiratory exam: Present: decreased breath sounds, rhonchi - Cardiovascular Cardiovascular exam: Present: RRR - GI/Abdominal Exam GI/Abdominal exam: Present: normal bowel sounds, soft. Absent: tenderness - Extremities Exam Extremities exam: Present: tenderness - Neurological Exam Neurological exam: Present: altered - Psychiatric Psychiatric exam: Absent: agitated, anxious - Skin Skin exam: Present: dry, warm Palliative Quality Palliative Quality: Screen for Code Status: Yes, Screen for Goals of Care: Yes, Screen for Pain: Yes, If Pain Regimen Started, Initiate Bowel Regimen: Yes, Screen for Nausea/Vomitting: Yes
[2017-07-28] MEDS ORDERED: *HR* FentaNYL PATCH 75 MCG PATCH TD SCH (14:15)
--- NOTE | 2017-07-28 14:33 | Event Note ---
Date of Encounter: 07/28/17 Time of Encounter: 14:31 Hospice emergency medical tech certification of terminal illness: Hospice benefit. Start: 07/28/2017 Hospice benefit. In: +90 days Palliative performance scale: 10-20% History: Agent with history of multiple YANA's possibly embolic in nature however source is unknown. The patient also has MRSA bacteremia again source unknown but was going to require 5 more weeks of IV antibiotics. The patient is no longer taking any right mouth he does not wish to place a permanent feeding tube and therefore all artificial nutrition is being stopped. The duration of the patient's new onset renal failure coupled with inability to take in nutrition coupled with decrease in mental status in the face of recent CVA all lead me to believe that without any further treatment (for which she is not going to get) that These findings support a life expectancy of 6 months or less. I attest that I have compose the above narrative based on my review of the patient's medical records, and or on my examination of the patient. Ravindra Rodriguez M.D. Associate emergency medical tech. [facility]
[2017-07-28] MEDS: Nystatin SUSP 5 ML UD.LIQ PO SCH ×2 (17:35→21:26)
[2017-07-28] MEDS ORDERED: Metoclopramide 10 MG/2 ML VIAL IVP SCH (18:00)
[2017-07-28] MEDS: MORPHINE SUL Oral CONC 10 MG/0.5 ML ORAL.SYG PO PRN ×2 (18:49→21:25)
[2017-07-28 19:05] VITALS: BP 132/67
[2017-07-28] MEDS ORDERED: Bisacodyl 10 MG RECTAL SUPPOSITORY RC SCH (21:00)
[2017-07-29] MEDS ORDERED: Aminoglycoside Consult 1 EACH MC ONE (00:39)
[2017-07-29] MEDS ORDERED: Furosemide 40 MG/4 ML VIAL IVP SCH (09:00)
[2017-07-29] MEDS ORDERED: Silvasorb 44.4 ML TUBE TP SCH (09:00)
--- NOTE | 2017-07-29 09:24 | Death Note ---
Discharge Sum: Summary - Date and Time Date of admission: 07/28/17 14:33 Date of : 07/29/17 Time of : 00:40 - Summary Details: Agent was transitioned to general inpatient hospice care after decision was made by family to no longer pursue any further aggressive care for the MRSA bacteremia in the delirium that ensued thereto. She passed quietly and comfortably 24 hours of coming on to general inpatient hospice, family was at bedside. Causes of is arrest secondary to metabolic encephalopathy due to CVA and MRSA bacteremia. Patient was never a smoker Abilities atrial fibrillation CHF, COPD, coronary artery disease, and hypertension. - Additional Data Confirmation of as documented by pronouncing clinician: no pulse, no respirations Family: at bedside Attending/PCP notified?: Yes Attending physician: Ravindra Rodriguez MD Was code activated?: No Autopsy requested?: No forensic examiner notified?: No Organ bank notified?: Yes Advance directives: Yes Hospice patient?: Yes Discharge Sum: Diag - PCOD Probable Cause of : Respiratory arrest Discharge Sum: Prov - Provider Primary care physician: Barbra Juarez MD Consults: 07/28/17 14:04 Consult to Palliative Care [CONS] Routine Comment: Consulting Provider: Palliative Care [place] Reason for Consult: coverage Time Notified: 14:10 Call Completed: Yes
== END 2017-07-29 00:40 | disposition expired | DRG 871 ==
LOC: 2ANU 14:33
PROVIDERS: ADMIT Family Medicine Hospice and Palliative Medicine; ATTEND Family Medicine Hospice and Palliative Medicine